=== PATIENT | female | born 1965 | race Caucasian/White ===

== ENCOUNTER 2017-02-15 16:28 | Observation (INO) | payer OTHER, SELFPAY ==
[2017-02-15] VITALS (8 sets, daily range): BP systolic 152–181; BP diastolic 66–91; PULSE 78–92; RESP 12–20; TEMP 36.4–36.6; O2SAT 97–99; BMI 29.8; BMI 31.1; BMI 31.2
--- NOTE | 2017-02-15 17:07 | RAD_ITS ---
STUDY: X-RAY CHEST REASON FOR EXAM: Female, 51 years old. Syncope TECHNIQUE: Single AP portable view of the chest. COMPARISON: None. FINDINGS: The lungs are clear and expanded. There is no demonstrated pleural abnormality. Normal size heart. Normal mediastinum and garth. Normal visualized pulmonary arteries. Normal visualized aortic arch and descending thoracic aorta. Normal visualized thoracic spine. Normal visualized ribs, clavicles, and shoulders. There is no demonstrated abnormality of the visualized soft tissue structures of the upper abdomen. RAD/Chest 1 View (Portable) IMPRESSION: Normal x-ray examination of the chest. Electronically Signed: Ignacio Acosta DO at 17:50 EST Tel , Service support ,
--- NOTE | 2017-02-15 17:07 | EKG12_ITS ---
Test Reason : SYNCOPE Blood Pressure : / mmHG Vent. Rate : 079 BPM Atrial Rate : 079 BPM P-R Int : 142 ms QRS Dur : 068 ms QT Int : 358 ms P-R-T Axes : 034 000 003 degrees QTc Int : 410 ms Normal sinus rhythm Normal ECG Confirmed by KAILYN ZIMMERMAN, KAT ([id number]), make up editor SIOBHAN QIU ([id number] on 02/18/2017 1:11:36 PM Referred By: FIDE Confirmed By:KAT AVINA MD
--- NOTE | 2017-02-15 18:03 | ED.VISSUMM ---
- ER Visit Summary Date of Service: 02/15/17 Chief Complaint: Near syncope History of Present Illness: The patient is a [address] Horner. 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 Her room was hot all day. However, she began to feel hot, clammy, diaphoretic, nauseated and had abdominal cramping. She felt like she needed to have a bowel movement. She went into the restroom and had very little stool that was produced. States that then she began feeling very lightheaded and felt like she was going to pass out. She sat down and turned on a fan for a few minutes and and get any relief. Patient reports that she went to the office got water and ice. She had a bowel movement that was loose. Since that time she reports that she has had 2 bowel movements since. They have both been diarrhea that is maroon colored. She complains of diffuse abdominal cramping that is 5 out of 10 now on 10 out of 10 at worst. Is relieved with having a bowel movement. She reports that they had a carry in at the school approximately 3 hours prior to the onset of this. She ate mac & cheese, broccoli slaw salad, scalloped potatoes, hamburger and beans, trail bologna, and multiple cream puffs. No one else is ill that she knows of. Patient reports that she has had multiple episodes of presyncope in the past. She had a stress test here and a 24 hour Holter monitor that were unremarkable. Physical Examination: Vitals: Stable. Afebrile. General: Well-nourished and well-developed. Head: Normocephalic atraumatic. Neck: Supple, no lymphadenopathy. No JVD. Nontender. Cardiovascular: Regular rate and rhythm. No murmurs. Respiratory: No respiratory distress. Clear to auscultation bilaterally. Abdominal: Soft, mild diffuse tenderness to palpation, nondistended, normal bowel sounds. No guarding, rebound, or peritoneal signs. Back: Nontender. Extremities: Nontender, no edema. Skin: Normal color, no rash. Neurologic: Alert and oriented ?3. Cranial nerves II through XII are intact. Normal strength and sensation. Psych: Normal affect. Test Results: EKG is sinus at 79 with no acute changes. Chest x-ray is normal. Chem-7 is remarkable for a chloride of 109, BUN of 21, and BUN/creatinine ratio 21.7. Troponin is negative. CBC is remarkable for a white count of 12.1, segmented neutrophils of 74, lymphs sets of 18. Lactic acid is 1.4. INR is 1.0. PTT is 26.1. CT abdomen pelvis IV contrast shows long segment wall thickening and pericolonic fat stranding of the descending and rectosigmoid colon consistent with colitis. Given the lack of significant atherosclerotic disease of the abdominal aorta ischemic colitis is less likely. Emergency Department Course and Treatment: Patient has had 3 episodes of maroon colored stool in the emergency department. When the CT results returned she was given Cipro and Flagyl IV. Treatment Plan: Patient was discussed with Dr. Gillette as well as the hospitalist. She will be admitted for further evaluation and treatment. Disposition: Admitted in improved condition. Impression: 1. Near syncope, vasovagal. 2. Colitis. This note was generated with [employer] dictation software. It may contain incorrect words, spelling, and punctuation that were not noted in review of the chart prior to signing ED Disposition - Plan for ED Patient: Chief Complaint: Syncope Referrals: Santosh Horner MD [Primary Care Provider] -
[2017-02-15] MEDS: 0.9% Normal Saline 1,000 ML 1000 ML IV (18:06)
--- NOTE | 2017-02-15 18:28 | CT_ITS ---
STUDY: CT ABDOMEN AND PELVIS WITH CONTRAST REASON FOR EXAM: Female, 51 years old. Ischemic colitis RADIATION DOSAGE (If Supplied By Facility): CTDIvol = ( 18.00 ) mGy, DLP = ( 1015.55 ) mGycm TECHNIQUE: Transaxial images were obtained from the dome of the diaphragm to the symphysis pubis without oral contrast. 100 ml of Isovue 300 contrast was administered. Sagittal and coronal images were reconstructed. Individualized dose optimization techniques were used for this CT. COMPARISON: None. FINDINGS: The visualized lung bases are unremarkable. The visualized portions of the heart are within normal limits. Throughout the liver, there are numerous well-defined nonenhancing cysts. Otherwise, normal liver. The gallbladder is contracted. Normal spleen. Normal pancreas. Normal bilateral adrenal glands. Numerous hypodense cysts seen within both kidneys suggesting a version of polycystic kidney disease in conjunction with liver cysts. No evidence of acute renal obstruction Normal visualized stomach. Normal small intestine. Long segment wall thickening of the descending and rectosigmoid colon with pericolonic fasting edema suggesting colitis. Remainder of the colon demonstrates chronic diverticulosis without acute diverticulitis. There is non-visualization of the appendix. Normal abdominal aorta. Normal inferior vena cava. Normal retroperitoneum. Normal urinary bladder. Normal visualized uterus. Normal abdominal wall. Normal osseous structures. CT/Abdomen/Pelvis W IV Cont ONLY IMPRESSION: Long segment wall thickening and pericolonic fat stranding of the descending and rectosigmoid colon compatible with colitis. Given the lack of significant atherosclerotic disease of the abdominal aorta, ischemic colitis is considered less likely. Polycystic kidney disease is noted. Electronically Signed: Ignacio Acosta DO at 20:35 EST Tel , Service support ,
[2017-02-15 19:35] LABS: Absolute Lymphocyte Count 2.17 X10^3/ul (0.83-4.51); Absolute Neutrophil Count 8.9 X10^3/uL (2.0-7.7); Basophil# 0.03 X10^3/uL; Basophil% 0.2 % (0-1); Eosinophil# 0.11 X10^3/uL; Eosinophils% 0.9 % (0-5); Hematocrit 42.6 % (37-47); Hemoglobin 13.7 g/dl (12.0-15.0); Lymphocyte # 2.17 X10^3/ul (4.0); Mean Corp Hgb Conc 32.2 g/gl (32-36); Mean Corpuscular Hgb 28.9 pg (27.0-32.0); Mean Corpuscular Volume 89.9 fL (81-99); Mean Platelet Vol. 9.4 fl (6.2-12.0); Monocyte# 0.79 X10^3/uL; Monocyte% 6.6 % (0-10); Neutrophil # 8.92 X10^3/uL (2.7-7.7); Neutrophil % 74.1 % (47-70); Platelet Count 218 K/mm3 (150-450); RBC Distribution Width CV 12.9 % (11.6-14.6); RBC Distribution Width SD 42.3 fl (35.1-43.9); Red Blood Count 4.74 M/mm3 (4.2-5.4); White Blood Count 12.1 K/mm3 (4.4-11.0)
[2017-02-15 19:52] LABS: Anion Gap 8 (5-15); BUN 21 mg/dL (7-18); BUN/Creat Ratio 21.7 RATIO (10-20); Calcium,Total 8.6 mg/dL (8.5-10.1); Chloride 109 mmol/L (98-107); Creatinine, Serum 0.97 mg/dL (0.55-1.02); EST Glomerular Filtration Rate 65 mL/min (>60); Est Glom Filt Rate - Afr Amer 78 mL/min (>60); Estimated Creatinine Clearance 64.95 ml/min; Glucose 96 mg/dL (70-110); Potassium 4.4 mmol/L (3.5-5.1); Sodium Level 140 mmol/L (136-145)
[2017-02-15 20:12] LABS: POSITIVE COUNT NO; POSITIVE DIFFERENTIAL NO; POSITIVE MORPHOLOGY NO
[2017-02-15 20:24] LABS: Lactic Acid 1.4 mmol/L (0.4-2.0)
[2017-02-15 20:37] LABS: Partial Thromboplast Time 26.1 Seconds (24.1-36.2); Prothrombin Time (Protime)PT. 12.5 SECONDS (11.7-14.9)
--- NOTE | 2017-02-15 21:54 | PCM.HP.STD ---
Problem List (1) Polycystic kidney disease Status: Chronic (2) rectosigmoid colitis Status: Acute (3) Hypertension Status: Chronic (4) Dyslipidemia Status: Chronic History of Present Illness Date of Admission: 02/15/17 Chief Complaint: Abdominal pain and bloody diarrhea today The patient is a 51 year old F with history of polycystic kidney disease being followed by the masonry teacher, Dr. Matthews came to ER with sudden onset of abdominal pain and bloody diarrhea today. 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 Initial 3 bowel movements were soft blood mixed but last 2 were almost all bloody. At the school her temperature was noted normal. She denies any prior history of colitis. She had colonoscopy by Dr. Gillette in September 2016 and was normal. In ER, CT abdomen shows long segment of descending and rectosigmoid colon wall thickening and pericolonic fatty stranding compatible with colitis Past Medical History Past Medical History (Chronic Problems): Chronic Problems Dyslipidemia (Chronic) Hypertension (Chronic) Polycystic kidney disease (Chronic) Allergies No Known Allergies Allergy (Verified 02/15/17 16:29) Home Medications: Ambulatory Orders Medication Instructions Recorded Levonorgestrel-Ethin Estradiol 1 tab PO DAILY 02/15/17 [Levonor-Eth Estra 0.09-0.02 mg] Lisinopril [Lisinopril] 20 mg PO DAILY 02/15/17 Rosuvastatin Calcium [Crestor] 20 mg PO QHS 02/15/17 Smoking Status: Never smoker - *Family History Paternal History Items: Renal Disease - Polycystic kidney disease in father and paternal side. Review of Systems Constitutional: Reports: Weakness. Denies: Chills, Fever, Weight Change HEENT: Denies: Head Aches, Sinus Congestion, Sinus Drainage Cardiovascular: Denies: Chest Pain, Palpitations Respiratory: Denies: Cough, Shortness of breath at rest, Sputum production Gastrointestinal: Reports: Abdominal Pain, Hematochezia, Nausea. Denies: Vomiting Genitourinary: Denies: Dysuria Musculoskeletal: Denies: Joint Pain, Joint Tenderness Skin: Denies: Rash, Wounds Neurological: Denies: Numbness, Tingling, Focal weakness Psychiatric: Denies: Anxiety, Depression, Homicidal Ideations, Suicidal Ideations Hematologic/ Lymphatic: Denies: Easy Bruising, Easy Bleeding VTE Information - Inpt Only VTE Present on Admission: No VTE Mechan Device Prophylaxis: SCD's VTE Pharm Prophylaxis ordered?: Yes Patient Problems: Active and Suspected Problems rectosigmoid colitis (Acute) - Physical Exam General: Alert, Oriented x3, Cooperative HEENT: Atraumatic, PERRLA, EOMI, Normocephalic Oral: Dry Mucosa Neck: Supple, No JVD, Negative Carotid Bruits Lungs: Clear to auscultation, Normal air movement, No rhonchi, No wheeze, No rales Cardiovascular: Regular rate, Regular Rhythm, Normal S1, Normal S2, No murmurs Abdomen: Bowel Sounds Present, Soft, Hypoactive Bowel Sounds, Tender - Generalized tenderness but predominantly over left lower quadrant Extremities: No edema, Capillary Refill Less than 3 Seconds Skin: No rashes, No breakdown Musculoskeletal: No Tenderness to Palpation of Joints or Extremities Neurological: Cranial nerves II-XII grossly intact Psych/Mental Status: Normal Affect, Appropriate Vital Signs Temp Pulse Resp BP Pulse Ox 97.6 F 88 12 164/73 99 02/15/17 16:29 02/15/17 20:24 02/15/17 20:24 02/15/17 20:24 02/15/17 20:24 Oxygen Delivery Method Room Air Weight: 83.915 kg Body Mass Index (BMI) 29.8 Laboratory Tests Past 24 Hrs 02/15/17 02/15/17 02/15/17 19:20 19:20 19:20 WBC 12.1 H RBC 4.74 Hgb 13.7 Hct 42.6 MCV 89.9 MCH 28.9 MCHC 32.2 RDW 12.9 RDW Differential 42.3 Plt Count 218 MPV 9.4 Immature Gran % (Auto) 0.200 Neut % (Auto) 74.1 H Lymph % (Auto) 18.0 L [place] % (Auto) 6.6 Eos % (Auto) 0.9 Baso % (Auto) 0.2 Absolute Neuts (auto) 8.9 H Absolute Lymphs (auto) 2.17 Total Counted Not Reportable PT 12.5 INR 1.0 APTT 26.1 Sodium 140 Potassium 4.4 Chloride 109 H Carbon Dioxide 23.0 Anion Gap 8 BUN 21 H Creatinine 0.97 Estim Creat Clear Calc 64.95 Est GFR (MDRD) Af Amer 78 Est GFR (MDRD) Non-Af 65 BUN/Creatinine Ratio 21.7 H Glucose 96 Lactic Acid Calcium 8.6 Troponin I < 0.02 02/15/17 19:20 WBC RBC Hgb Hct MCV MCH MCHC RDW RDW Differential Plt Count MPV Immature Gran % (Auto) Neut % (Auto) Lymph % (Auto) [place] % (Auto) Eos % (Auto) Baso % (Auto) Absolute Neuts (auto) Absolute Lymphs (auto) Total Counted PT INR APTT Sodium Potassium Chloride Carbon Dioxide Anion Gap BUN Creatinine Estim Creat Clear Calc Est GFR (MDRD) Af Amer Est GFR (MDRD) Non-Af BUN/Creatinine Ratio Glucose Lactic Acid 1.4 Calcium Troponin I Assessment/Plan Active and Suspected Problems rectosigmoid colitis (Acute) The patient is a 51 year old F with history of polycystic kidney disease being followed by the masonry teacher, Dr. Matthews came to ER with sudden onset of abdominal pain and bloody diarrhea today. 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 Initial 3 bowel movements were soft blood mixed but last 2 were almost all bloody. At the school her temperature was noted normal. She denies any prior history of colitis. She had colonoscopy by Dr. Gillette in September 2016 and was normal. In ER, CT abdomen shows long segment of descending and rectosigmoid colon wall thickening and pericolonic fatty stranding compatible with colitis. 1. Acute descending colon and rectosigmoid colitis with hematochezia (Mild leukocytosis. No tachycardia or hypotension, hypoxia or tachypnea). : Patient is being admitted on monitored bed. IV fluid resuscitation, monitor intake and output and dynamic monitoring. Orthostatic signs in the ER was negative. Started on IV fluid normal saline, IV Cipro and Flagyl and monitor H&H every 8 hourly. Currently hemoglobin is 10.[address] Gillette has been consulted and the patient does not need colonoscopy or invasive procedures. 2. Hypovolemia and dehydration due to diarrhea: Prerenal azotemia, BUN 21. Creatinine normal. IV fluid resuscitation. 3. Other chronic comorbidities including hypertension, dyslipidemia, polycystic kidney disease and polycystic disease of liver: Stable. Follow-up with masonry teacher as an outpatient. Home medication reconciliation done. DVT prophylaxis: Moderate risk, on heparin 500 units subcutaneous twice daily and bilateral SCDs. Clinical Impression(s) from Imaging Studies Chest X-Ray 02/15/17 17:07 IMPRESSION: Normal x-ray examination of the chest. Electronically Signed: Ignacio Acosta DO at 17:50 EST Tel , Service support , Abdomen/Pelvis CT 02/15/17 18:28 IMPRESSION: Long segment wall thickening and pericolonic fat stranding of the descending and rectosigmoid colon compatible with colitis. Given the lack of significant atherosclerotic disease of the abdominal aorta, ischemic colitis is considered less likely. Polycystic kidney disease is noted. Electronically Signed: Ignacio Feltonsherine at 20:35 EST Tel , Service support , Laboratory Results 02/15/17 19:20: WBC 12.1 H, RBC 4.74, Hgb 13.7, Hct 42.6, MCV 89.9, MCH 28.9, MCHC 32.2, RDW 12.9, RDW Differential 42.3, Plt Count 218, MPV 9.4, Immature Gran % (Auto) 0.200, Neut % (Auto) 74.1 H, Lymph % (Auto) 18.0 L, [place] % (Auto) 6.6, Eos % (Auto) 0.9, Baso % (Auto) 0.2, Absolute Neuts (auto) 8.9 H, Absolute Lymphs (auto) 2.17, Total Counted Not Reportable 02/15/17 19:20: PT 12.5, INR 1.0, APTT 26.1 02/15/17 19:20: Sodium 140, Potassium 4.4, Chloride 109 H, Carbon Dioxide 23.0, Anion Gap 8, BUN 21 H, Creatinine 0.97, Estim Creat Clear Calc 64.95, Est GFR (MDRD) Af Amer 78, Est GFR (MDRD) Non-Af 65, BUN/Creatinine Ratio 21.7 H, Glucose 96, Calcium 8.6, Troponin I < 0.02 02/15/17 19:20: Lactic Acid 1.4
--- NOTE | 2017-02-15 21:58 | HP.PCM_ITS ---
Problem List (1) Polycystic kidney disease Status: Chronic (2) rectosigmoid colitis Status: Acute (3) Hypertension Status: Chronic (4) Dyslipidemia Status: Chronic History of Present Illness Date of Admission: 02/15/17 Chief Complaint: Abdominal pain and bloody diarrhea today The patient is a 51 year old F with history of polycystic kidney disease being followed by the family living educator, Dr. Matthews came to ER with sudden onset of abdominal pain and bloody diarrhea today. 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 Initial 3 bowel movements were soft blood mixed but last 2 were almost all bloody. At the school her temperature was noted normal. She denies any prior history of colitis. She had colonoscopy by Dr. Gillette in September 2016 and was normal. In ER, CT abdomen shows long segment of descending and rectosigmoid colon wall thickening and pericolonic fatty stranding compatible with colitis Past Medical History Past Medical History (Chronic Problems): Chronic Problems Dyslipidemia (Chronic) Hypertension (Chronic) Polycystic kidney disease (Chronic) Allergies No Known Allergies Allergy (Verified 02/15/17 16:29) Home Medications: Ambulatory Orders Medication Instructions Recorded Levonorgestrel-Ethin Estradiol 1 tab PO DAILY 02/15/17 [Levonor-Eth Estra 0.09-0.02 mg] Lisinopril [Lisinopril] 20 mg PO DAILY 02/15/17 Rosuvastatin Calcium [Crestor] 20 mg PO QHS 02/15/17 Smoking Status: Never smoker - *Family History Paternal History Items: Renal Disease - Polycystic kidney disease in father and paternal side. Review of Systems Constitutional: Reports: Weakness. Denies: Chills, Fever, Weight Change HEENT: Denies: Head Aches, Sinus Congestion, Sinus Drainage Cardiovascular: Denies: Chest Pain, Palpitations Respiratory: Denies: Cough, Shortness of breath at rest, Sputum production Gastrointestinal: Reports: Abdominal Pain, Hematochezia, Nausea. Denies: Vomiting Genitourinary: Denies: Dysuria Musculoskeletal: Denies: Joint Pain, Joint Tenderness Skin: Denies: Rash, Wounds Neurological: Denies: Numbness, Tingling, Focal weakness Psychiatric: Denies: Anxiety, Depression, Homicidal Ideations, Suicidal Ideations Hematologic/ Lymphatic: Denies: Easy Bruising, Easy Bleeding VTE Information - Inpt Only VTE Present on Admission: No VTE Mechan Device Prophylaxis: SCD's VTE Pharm Prophylaxis ordered?: Yes Patient Problems: Active and Suspected Problems rectosigmoid colitis (Acute) - Physical Exam General: Alert, Oriented x3, Cooperative HEENT: Atraumatic, PERRLA, EOMI, Normocephalic Oral: Dry Mucosa Neck: Supple, No JVD, Negative Carotid Bruits Lungs: Clear to auscultation, Normal air movement, No rhonchi, No wheeze, No rales Cardiovascular: Regular rate, Regular Rhythm, Normal S1, Normal S2, No murmurs Abdomen: Bowel Sounds Present, Soft, Hypoactive Bowel Sounds, Tender - Generalized tenderness but predominantly over left lower quadrant Extremities: No edema, Capillary Refill Less than 3 Seconds Skin: No rashes, No breakdown Musculoskeletal: No Tenderness to Palpation of Joints or Extremities Neurological: Cranial nerves II-XII grossly intact Psych/Mental Status: Normal Affect, Appropriate Vital Signs Temp Pulse Resp BP Pulse Ox 97.6 F 88 12 164/73 99 02/15/17 16:29 02/15/17 20:24 02/15/17 20:24 02/15/17 20:24 02/15/17 20:24 Oxygen Delivery Method Room Air Weight: 83.915 kg Body Mass Index (BMI) 29.8 Laboratory Tests Past 24 Hrs 02/15/17 02/15/17 02/15/17 19:20 19:20 19:20 WBC 12.1 H RBC 4.74 Hgb 13.7 Hct 42.6 MCV 89.9 MCH 28.9 MCHC 32.2 RDW 12.9 RDW Differential 42.3 Plt Count 218 MPV 9.4 Immature Gran % (Auto) 0.200 Neut % (Auto) 74.1 H Lymph % (Auto) 18.0 L [place] % (Auto) 6.6 Eos % (Auto) 0.9 Baso % (Auto) 0.2 Absolute Neuts (auto) 8.9 H Absolute Lymphs (auto) 2.17 Total Counted Not Reportable PT 12.5 INR 1.0 APTT 26.1 Sodium 140 Potassium 4.4 Chloride 109 H Carbon Dioxide 23.0 Anion Gap 8 BUN 21 H Creatinine 0.97 Estim Creat Clear Calc 64.95 Est GFR (MDRD) Af Amer 78 Est GFR (MDRD) Non-Af 65 BUN/Creatinine Ratio 21.7 H Glucose 96 Lactic Acid Calcium 8.6 Troponin I < 0.02 02/15/17 19:20 WBC RBC Hgb Hct MCV MCH MCHC RDW RDW Differential Plt Count MPV Immature Gran % (Auto) Neut % (Auto) Lymph % (Auto) [place] % (Auto) Eos % (Auto) Baso % (Auto) Absolute Neuts (auto) Absolute Lymphs (auto) Total Counted PT INR APTT Sodium Potassium Chloride Carbon Dioxide Anion Gap BUN Creatinine Estim Creat Clear Calc Est GFR (MDRD) Af Amer Est GFR (MDRD) Non-Af BUN/Creatinine Ratio Glucose Lactic Acid 1.4 Calcium Troponin I Assessment/Plan Active and Suspected Problems rectosigmoid colitis (Acute) The patient is a 51 year old F with history of polycystic kidney disease being followed by the family living educator, Dr. Matthews came to ER with sudden onset of abdominal pain and bloody diarrhea today. 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 Initial 3 bowel movements were soft blood mixed but last 2 were almost all bloody. At the school her temperature was noted normal. She denies any prior history of colitis. She had colonoscopy by Dr. Gillette in September 2016 and was normal. In ER, CT abdomen shows long segment of descending and rectosigmoid colon wall thickening and pericolonic fatty stranding compatible with colitis. 1. Acute descending colon and rectosigmoid colitis with hematochezia (Mild leukocytosis. No tachycardia or hypotension, hypoxia or tachypnea). : Patient is being admitted on monitored bed. IV fluid resuscitation, monitor intake and output and dynamic monitoring. Orthostatic signs in the ER was negative. Started on IV fluid normal saline, IV Cipro and Flagyl and monitor H&H every 8 hourly. Currently hemoglobin is 10.[address] Gillette has been consulted and the patient does not need colonoscopy or invasive procedures. 2. Hypovolemia and dehydration due to diarrhea: Prerenal azotemia, BUN 21. Creatinine normal. IV fluid resuscitation. 3. Other chronic comorbidities including hypertension, dyslipidemia, polycystic kidney disease and polycystic disease of liver: Stable. Follow-up with family living educator as an outpatient. Home medication reconciliation done. DVT prophylaxis: Moderate risk, on heparin 500 units subcutaneous twice daily and bilateral SCDs. Clinical Impression(s) from Imaging Studies Chest X-Ray 02/15/17 17:07 IMPRESSION: Normal x-ray examination of the chest. Electronically Signed: Ignacio Acosta DO at 17:50 EST Tel , Service support , Abdomen/Pelvis CT 02/15/17 18:28 IMPRESSION: Long segment wall thickening and pericolonic fat stranding of the descending and rectosigmoid colon compatible with colitis. Given the lack of significant atherosclerotic disease of the abdominal aorta, ischemic colitis is considered less likely. Polycystic kidney disease is noted. Electronically Signed: Ignacio Feltonsherine at 20:35 EST Tel , Service support , Laboratory Results 02/15/17 19:20: WBC 12.1 H, RBC 4.74, Hgb 13.7, Hct 42.6, MCV 89.9, MCH 28.9, MCHC 32.2, RDW 12.9, RDW Differential 42.3, Plt Count 218, MPV 9.4, Immature Gran % (Auto) 0.200, Neut % (Auto) 74.1 H, Lymph % (Auto) 18.0 L, [place] % (Auto) 6.6, Eos % (Auto) 0.9, Baso % (Auto) 0.2, Absolute Neuts (auto) 8.9 H, Absolute Lymphs (auto) 2.17, Total Counted Not Reportable 02/15/17 19:20: PT 12.5, INR 1.0, APTT 26.1 02/15/17 19:20: Sodium 140, Potassium 4.4, Chloride 109 H, Carbon Dioxide 23.0, Anion Gap 8, BUN 21 H, Creatinine 0.97, Estim Creat Clear Calc 64.95, Est GFR ( MDRD) Af Amer 78, Est GFR (MDRD) Non-Af 65, BUN/Creatinine Ratio 21.7 H, Glucose 96, Calcium 8.6, Troponin I < 0.02 02/15/17 19:20: Lactic Acid 1.4
[2017-02-15] MEDS: Acetaminophen 325 MG Tablet 650 MG PO (23:25)
[2017-02-15] MEDS: 0.9% Normal Saline 1,000 ML 150 ML IV (23:26)
[2017-02-15] MEDS: Atorvastatin Calcium 20 MG Tablet PO (23:29)
[2017-02-15] MEDS: Heparin Injection 5,000 UNITS/ML Syringe 5000 UNITS SC (23:29)
[2017-02-15] MEDS: Zolpidem Tartrate 5 MG Tablet PO (23:33)
[2017-02-16] VITALS (7 sets, daily range): BP systolic 153–168; BP diastolic 73–98; PULSE 80–94; RESP 16–17; TEMP 36.6–36.9; O2SAT 95–98
[2017-02-16 05:44] LABS: Absolute Lymphocyte Count 2.86 X10^3/ul (0.83-4.51); Absolute Neutrophil Count 8.5 X10^3/uL (2.0-7.7); Basophil# 0.05 X10^3/uL; Basophil% 0.4 % (0-1); Eosinophils% 1.6 % (0-5); Hematocrit 38.5 % (37-47); Hemoglobin 13.1 g/dl (12.0-15.0); Lymphocyte # 2.86 X10^3/ul (4.0); Lymphocyte % 22.8 % (19-41); Mean Corpuscular Volume 88.1 fL (81-99); Mean Platelet Vol. 9.5 fl (6.2-12.0); Monocyte# 0.95 X10^3/uL; Monocyte% 7.6 % (0-10); Neutrophil # 8.46 X10^3/uL (2.7-7.7); Neutrophil % 67.4 % (47-70); Platelet Count 214 K/mm3 (150-450); RBC Distribution Width CV 12.7 % (11.6-14.6); RBC Distribution Width SD 40.1 fl (35.1-43.9); Red Blood Count 4.37 M/mm3 (4.2-5.4); White Blood Count 12.6 K/mm3 (4.4-11.0)
[2017-02-16] MEDS: Acetaminophen 325 MG Tablet 650 MG PO ×2 (05:51→13:04)
[2017-02-16 05:57] LABS: POSITIVE COUNT NO; POSITIVE DIFFERENTIAL NO; POSITIVE MORPHOLOGY NO
[2017-02-16 06:03] LABS: Anion Gap 11 (5-15); BUN 15 mg/dL (7-18); BUN/Creat Ratio 17.3 RATIO (10-20); Chloride 110 mmol/L (98-107); Cholesterol 138 mg/dL (200); Creatinine, Serum 0.87 mg/dL (0.55-1.02); EST Glomerular Filtration Rate 73 mL/min (>60); Est Glom Filt Rate - Afr Amer 89 mL/min (>60); Estimated Creatinine Clearance 72.42 ml/min; Glucose 92 mg/dL (70-110); High Density Lipoprotein 26 mg/dL; Sodium Level 141 mmol/L (136-145); Triglycerides 175 mg/dL; Very Low Density Lipoprotein 35 mg/dL (5-40)
[2017-02-16] MEDS: 0.9% Normal Saline 1,000 ML 150 ML IV ×3 (08:11→22:18)
--- NOTE | 2017-02-16 09:09 | CASEMGMT ---
RN CM assessment complete. See link for complete assessment. Disposition Plan: Patient would like to transition home with follow-up plans in place. Transition Needs: None identified at this time. RN CM will remain available to assist should needs arise.
--- NOTE | 2017-02-16 09:12 | NURSING ---
Lab called to clarify that sample sent was stool- as alot of sample was blood. Notified lab that sample was of stool.
--- NOTE | 2017-02-16 09:45 | NURSING ---
bilat hands puffy and noted rings on bilat ring fingers tight d/t the edema. used lotion and soap and able to assist pt w/getting rings off of fingers. gold ring that was on right hand and wedding ring that was on left hand both given to pt's to take home per pt request.
--- NOTE | 2017-02-16 10:08 | PCM.PROGNOTE ---
Patient Problems: Active and Suspected Problems rectosigmoid colitis (Acute) Subjective: Patient seen and examined, no acute events overnight. Had 2 stools that were bloody, no syncopal episodes. Remains hemodynamically stable, white count slightly increased to 12.6. She remains afebrile. Still having a significant amount of abdominal pain that is intermittent, partially relieved with bowel movement. Not having any stools, just pure red blood per patient report. She is feeling fatigued, has K pad on her abdomen. No current chest pain, shortness of breath, or dizziness. Objective: Clinical Impression(s) from Imaging Studies Chest X-Ray 02/15/17 17:07 IMPRESSION: Normal x-ray examination of the chest. Electronically Signed: Ignacio Acosta DO at 17:50 EST Tel , Service support , Abdomen/Pelvis CT 02/15/17 18:28 IMPRESSION: Long segment wall thickening and pericolonic fat stranding of the descending and rectosigmoid colon compatible with colitis. Given the lack of significant atherosclerotic disease of the abdominal aorta, ischemic colitis is considered less likely. Polycystic kidney disease is noted. Electronically Signed: Ignacio Acosta DO at 20:35 EST Tel , Service support , - Physical Exam General: Alert, Oriented x3, Cooperative, No apparent distress, - - Moderately painful HEENT: Atraumatic, Normocephalic Oral: Moist Mucosa, No Gingival or Mucosal Lesions/ Ulcerations Neck: Supple, No JVD, No Nodes, Trachea Midline Lungs: Clear to auscultation, No rhonchi, No wheeze, No rales Cardiovascular: Regular rate, Regular Rhythm, Normal S1, Normal S2, No murmurs, No rub noted, No Gallop Abdomen: Soft, Non-Distended, Passing Flatus, Hypoactive Bowel Sounds, - - Diffusely tender, more so in the LLQ Extremities: No clubbing, No cyanosis, No edema, Capillary Refill Less than 3 Seconds Skin: No rashes, No breakdown Musculoskeletal: No Tenderness to Palpation of Joints or Extremities Lymphatic: No Cervical, Supraclavicular, or Inguinal Adenopathy Neurological: Cranial nerves II-XII grossly intact, Neuro grossly intact, Motor Exam 5/5 strength throughout Psych/Mental Status: Alert and oriented to time, place, person, mood and affect Vital Signs Temp Pulse Resp BP Pulse Ox 97.9 F 80 17 168/98 96 02/16/17 04:54 02/16/17 07:30 02/16/17 04:54 02/16/17 04:54 02/16/17 07:07 Oxygen Delivery Method Room Air Weight: 87.6 kg Body Mass Index (BMI) 31.1 Intake and Output for Last 24 Hours 02/14/17 02/15/17 02/16/17 23:59 23:59 23:59 Intake Total 1121 Output Total 350 500 Balance -350 621 Laboratory Tests Past 24 Hrs 02/16/17 02/16/17 05:22 05:22 WBC 12.6 H RBC 4.37 Hgb 13.1 Hct 38.5 MCV 88.1 MCH 30.0 MCHC 34.0 RDW 12.7 RDW Differential 40.1 Plt Count 214 MPV 9.5 Immature Gran % (Auto) 0.200 Neut % (Auto) 67.4 Lymph % (Auto) 22.8 Merrick % (Auto) 7.6 Eos % (Auto) 1.6 Baso % (Auto) 0.4 Absolute Neuts (auto) 8.5 H Absolute Lymphs (auto) 2.86 Total Counted Not Reportable Sodium 141 Potassium 4.0 Chloride 110 H Carbon Dioxide 20.0 L Anion Gap 11 BUN 15 Creatinine 0.87 Estim Creat Clear Calc 72.42 Est GFR (MDRD) Af Amer 89 Est GFR (MDRD) Non-Af 73 BUN/Creatinine Ratio 17.3 Glucose 92 Calcium 8.0 L Triglycerides 175 Cholesterol 138 LDL Cholesterol 77 VLDL Cholesterol 35 HDL Cholesterol 26 L Assessment/Plan Active and Suspected Problems rectosigmoid colitis (Acute) Patient is a 51-year-old female who was admitted on 02/15 secondary to complaints of diffuse abdominal cramping, bloody stools, and near syncope. She had a CT abdomen and pelvis this was consistent with colitis. 1. Rectosigmoid colitis Confirmed by CT abdomen/pelvis. Does not appear to be ischemic colitis per report. Unsure if symptoms related to her carry-in she had at work prior to arrival. Lactate normal. Coags normal. WBC increased from 12.1-12.6 today. Remains afebrile. Enteric panel and O/P pending. Tylenol somewhat effective for her abdominal pain, she does not want to take narcotics secondary to her kidney disease. Does have IV morphine ordered. Still having some intermittent lightheadedness/feeling like she is going to pass out at times. Pt had 2 large liquid bloody stools overnight, [address] Gillette consulted in the ER. K-pad PRN to abdomen. No plans for colonoscopy per nursing staff, just had one in September, I do not see a note from surgery yet. Will see how she is doing overnight. If has large amount bloody stools, can check H&H later this afternoon, otherwise will check CBC in a.m. Continue flagyl and cipro. 2. Hypovolemia/dehydration/hyperchloremia Likely secondary to diarrhea. Receiving normal saline at 150 cc/hr. Continue for now. On clears, tolerating well but PO intake still not adequate. 3. Hypertension Not well controlled. May be partially due to pain. Add as needed hydralazine for systolic greater than 160 or diastolic greater than 90. 4. Polycystic kidney disease/polycystic liver disease Renal function stable. 5. Dyslipidemia 6. DVT prophylaxis Subcu heparin, SCDs This note was generated with bVisual dictation software. It may contain incorrect words, spelling, and punctuation that were not noted in checking the note before signing.
--- NOTE | 2017-02-16 10:21 | PN_ITS ---
Patient Problems: Active and Suspected Problems rectosigmoid colitis (Acute) Subjective: Patient seen and examined, no acute events overnight. Had 2 stools that were bloody, no syncopal episodes. Remains hemodynamically stable, white count slightly increased to 12.6. She remains afebrile. Still having a significant amount of abdominal pain that is intermittent, partially relieved with bowel movement. Not having any stools, just pure red blood per patient report. She is feeling fatigued, has K pad on her abdomen. No current chest pain, shortness of breath, or dizziness. Objective: Clinical Impression(s) from Imaging Studies Chest X-Ray 02/15/17 17:07 IMPRESSION: Normal x-ray examination of the chest. Electronically Signed: Ignacio Acosta DO at 17:50 EST Tel , Service support , Abdomen/Pelvis CT 02/15/17 18:28 IMPRESSION: Long segment wall thickening and pericolonic fat stranding of the descending and rectosigmoid colon compatible with colitis. Given the lack of significant atherosclerotic disease of the abdominal aorta, ischemic colitis is considered less likely. Polycystic kidney disease is noted. Electronically Signed: Ignacio Acosta DO at 20:35 EST Tel , Service support , - Physical Exam General: Alert, Oriented x3, Cooperative, No apparent distress, - - Moderately painful HEENT: Atraumatic, Normocephalic Oral: Moist Mucosa, No Gingival or Mucosal Lesions/ Ulcerations Neck: Supple, No JVD, No Nodes, Trachea Midline Lungs: Clear to auscultation, No rhonchi, No wheeze, No rales Cardiovascular: Regular rate, Regular Rhythm, Normal S1, Normal S2, No murmurs, No rub noted, No Gallop Abdomen: Soft, Non-Distended, Passing Flatus, Hypoactive Bowel Sounds, - - Diffusely tender, more so in the LLQ Extremities: No clubbing, No cyanosis, No edema, Capillary Refill Less than 3 Seconds Skin: No rashes, No breakdown Musculoskeletal: No Tenderness to Palpation of Joints or Extremities Lymphatic: No Cervical, Supraclavicular, or Inguinal Adenopathy Neurological: Cranial nerves II-XII grossly intact, Neuro grossly intact, Motor Exam 5/5 strength throughout Psych/Mental Status: Alert and oriented to time, place, person, mood and affect Vital Signs Temp Pulse Resp BP Pulse Ox 97.9 F 80 17 168/98 96 02/16/17 04:54 02/16/17 07:30 02/16/17 04:54 02/16/17 04:54 02/16/17 07:07 Oxygen Delivery Method Room Air Weight: 87.6 kg Body Mass Index (BMI) 31.1 Intake and Output for Last 24 Hours 02/14/17 02/15/17 02/16/17 23:59 23:59 23:59 Intake Total 1121 Output Total 350 500 Balance -350 621 Laboratory Tests Past 24 Hrs 02/16/17 02/16/17 05:22 05:22 WBC 12.6 H RBC 4.37 Hgb 13.1 Hct 38.5 MCV 88.1 MCH 30.0 MCHC 34.0 RDW 12.7 RDW Differential 40.1 Plt Count 214 MPV 9.5 Immature Gran % (Auto) 0.200 Neut % (Auto) 67.4 Lymph % (Auto) 22.8 [place]ke % (Auto) 7.6 Eos % (Auto) 1.6 Baso % (Auto) 0.4 Absolute Neuts (auto) 8.5 H Absolute Lymphs (auto) 2.86 Total Counted Not Reportable Sodium 141 Potassium 4.0 Chloride 110 H Carbon Dioxide 20.0 L Anion Gap 11 BUN 15 Creatinine 0.87 Estim Creat Clear Calc 72.42 Est GFR (MDRD) Af Amer 89 Est GFR (MDRD) Non-Af 73 BUN/Creatinine Ratio 17.3 Glucose 92 Calcium 8.0 L Triglycerides 175 Cholesterol 138 LDL Cholesterol 77 VLDL Cholesterol 35 HDL Cholesterol 26 L Assessment/Plan Active and Suspected Problems rectosigmoid colitis (Acute) Patient is a 51-year-old female who was admitted on 02/15 secondary to complaints of diffuse abdominal cramping, bloody stools, and near syncope. She had a CT abdomen and pelvis this was consistent with colitis. 1. Rectosigmoid colitis Confirmed by CT abdomen/pelvis. Does not appear to be ischemic colitis per report. Unsure if symptoms related to her carry-in she had at work prior to arrival. Lactate normal. Coags normal. WBC increased from 12.1-12.6 today. Remains afebrile. Enteric panel and O/P pending. Tylenol somewhat effective for her abdominal pain, she does not want to take narcotics secondary to her kidney disease. Does have IV morphine ordered. Still having some intermittent lightheadedness/feeling like she is going to pass out at times. Pt had 2 large liquid bloody stools overnight, [address] Gillette consulted in the ER. K-pad PRN to abdomen. No plans for colonoscopy per nursing staff, just had one in September, I do not see a note from surgery yet. Will see how she is doing overnight. If has large amount bloody stools, can check H&H later this afternoon, otherwise will check CBC in a.m. Continue flagyl and cipro. 2. Hypovolemia/dehydration/hyperchloremia Likely secondary to diarrhea. Receiving normal saline at 150 cc/hr. Continue for now. On clears, tolerating well but PO intake still not adequate. 3. Hypertension Not well controlled. May be partially due to pain. Add as needed hydralazine for systolic greater than 160 or diastolic greater than 90. 4. Polycystic kidney disease/polycystic liver disease Renal function stable. 5. Dyslipidemia 6. DVT prophylaxis Subcu heparin, SCDs This note was generated with [employer] dictation software. It may contain incorrect words, spelling, and punctuation that were not noted in checking the note before signing.
[2017-02-16] MEDS: Lisinopril 20 MG Tablet PO (10:37)
[2017-02-16] MEDS: Ciprofloxacin 400 MG/200 ML BAG 200 MG IV ×2 (10:37→22:18)
[2017-02-16] MEDS: Loratadine 10 MG Tablet PO (10:37)
--- NOTE | 2017-02-16 12:22 | CON.PCM_ITS ---
Reason for Consult Date of Consultation: 02/16/17 History of Present Illness: The patient is a [address] Horner. 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 Her room was hot all day. However, she began to feel hot, clammy, diaphoretic, nauseated and had abdominal cramping. She felt like she needed to have a bowel movement. She went into the restroom and had very little stool that was produced. States that then she began feeling very lightheaded and felt like she was going to pass out. She sat down and turned on a fan for a few minutes and and get any relief. Patient reports that she went to the office got water and ice. She had a bowel movement that was loose. Since that time she reports that she has had 2 bowel movements since. They have both been diarrhea that is maroon colored. She complains of diffuse abdominal cramping that is 5 out of 10 now on 10 out of 10 at worst. Is relieved with having a bowel movement. She reports that they had a carry in at the school approximately 3 hours prior to the onset of this. She ate mac & cheese, broccoli slaw salad, scalloped potatoes, hamburger and beans, trail bologna, and multiple cream puffs. No one else is ill that she knows of. Patient reports that she has had multiple episodes of presyncope in the past. She had a stress test here and a 24 hour Holter monitor that were unremarkable. A CAT scan with out oral or IV contrast was performed which showed a segment of sigmoid colon going into the rectum consistent with probable colitis. I performed a colonoscopy on her this past October which was entirely negative. Past Medical History Past Medical History (Chronic Problems): Chronic Problems Dyslipidemia (Chronic) Hypertension (Chronic) Polycystic kidney disease (Chronic) Allergies No Known Allergies Allergy (Verified 02/15/17 16:29) Home Medications: Ambulatory Orders Medication Instructions Recorded Cetirizine HCl [Zyrtec] 10 mg PO DAILY 02/15/17 Levonorgestrel-Ethin Estradiol 1 tab PO DAILY 02/15/17 [Levonor-Eth Estra 0.09-0.02 mg] Lisinopril [Lisinopril] 20 mg PO DAILY 02/15/17 Rosuvastatin Calcium [Crestor] 20 mg PO QHS 02/15/17 Smoking Status: Never smoker - *Family History Paternal History Items: Renal Disease - Polycystic kidney disease in father and paternal side. Review of Systems Cardiovascular: Denies: Chest Pain, Chest Pressure, Chest Tightness, Palpitations Respiratory: Denies: Cough, Hemoptysis, Shortness of breath at rest, Shortness of breath upon exertion, Wheezing Gastrointestinal: Reports: Abdominal Pain, Diarrhea, Hematochezia Genitourinary: Denies: Dysuria, Frequency, Hematuria, Urgency Musculoskeletal: Denies: Joint Pain Skin: Denies: Lesions, Rash, Wounds Patient Problems: Active and Suspected Problems rectosigmoid colitis (Acute) - Physical Exam General: Alert, Oriented x3 HEENT: Atraumatic, PERRLA, EOMI, Normocephalic Oral: Moist Mucosa Neck: Supple, No JVD Lungs: Clear to auscultation Cardiovascular: Regular rate, Regular Rhythm, No murmurs Abdomen: Tender - Patient feels bloated. Most of her tenderness is on the left side of her abdomen. She does not have rebound guarding or peritoneal signs. Vital Signs Temp Pulse Resp BP Pulse Ox 98.1 F 86 16 153/85 96 02/16/17 10:30 02/16/17 10:30 02/16/17 10:30 02/16/17 10:30 02/16/17 10:30 Oxygen Delivery Method Room Air Weight: 87.6 kg Body Mass Index (BMI) 31.1 Intake and Output for Last 24 Hours 02/14/17 02/15/17 02/16/17 23:59 23:59 23:59 Intake Total 2768 Output Total 350 1650 Balance -350 1118 Microbiology Past 72 Hours 02/16/17 09:05 Enteric Bacteriology - Final Stool Laboratory Tests Past 24 Hrs 02/16/17 02/16/17 05:22 05:22 WBC 12.6 H RBC 4.37 Hgb 13.1 Hct 38.5 MCV 88.1 MCH 30.0 MCHC 34.0 RDW 12.7 RDW Differential 40.1 Plt Count 214 MPV 9.5 Immature Gran % (Auto) 0.200 Neut % (Auto) 67.4 Lymph % (Auto) 22.8 Braxton % (Auto) 7.6 Eos % (Auto) 1.6 Baso % (Auto) 0.4 Absolute Neuts (auto) 8.5 H Absolute Lymphs (auto) 2.86 Total Counted Not Reportable Sodium 141 Potassium 4.0 Chloride 110 H Carbon Dioxide 20.0 L Anion Gap 11 BUN 15 Creatinine 0.87 Estim Creat Clear Calc 72.42 Est GFR (MDRD) Af Amer 89 Est GFR (MDRD) Non-Af 73 BUN/Creatinine Ratio 17.3 Glucose 92 Calcium 8.0 L Triglycerides 175 Cholesterol 138 LDL Cholesterol 77 VLDL Cholesterol 35 HDL Cholesterol 26 L Assessment/Plan Active and Suspected Problems rectosigmoid colitis (Acute) Assessment is colitis Plan: At this point IV hydration and antibiotics and bowel rest. She has had no further bloody bowel movements since being in the hospital. If her condition does not improve I am going to do a bowel prep and do a colonoscopy on her. I been asked to see this patient by Dr. Sims. Findings will be sent back to him via electronic medical record
[2017-02-16] MEDS: metroNIDAZOLE 500 MG Tablet PO ×2 (14:44→22:18)
--- NOTE | 2017-02-16 18:56 | EKG12_ITS ---
Test Reason : CHEST PAIN Blood Pressure : / mmHG Vent. Rate : 088 BPM Atrial Rate : 088 BPM P-R Int : 140 ms QRS Dur : 068 ms QT Int : 374 ms P-R-T Axes : 027 -01 -03 degrees QTc Int : 452 ms Normal sinus rhythm with sinus arrhythmia Normal ECG When compared with ECG of 15-FEB-2017 17:17, MANUAL COMPARISON REQUIRED, DATA IS UNCONFIRMED Confirmed by KAILYN ZIMMERMAN, KAT ([id number]), video tape editor SIOBHAN QIU ([id number] on 03/02/2017 1:51:24 PM Referred By: DR. KAUR Confirmed By:KAT AVINA MD
[2017-02-16] MEDS: oxyCODONE 5 MG Tablet PO (19:01)
[2017-02-16] MEDS: Atorvastatin Calcium 20 MG Tablet PO (22:18)
[2017-02-17] VITALS (7 sets, daily range): BP systolic 135–167; BP diastolic 66–85; PULSE 72–83; RESP 16–20; TEMP 35.8–36.7; O2SAT 97–99
[2017-02-17] MEDS: Acetaminophen 325 MG Tablet 650 MG PO ×2 (03:30→21:46)
[2017-02-17 05:52] LABS: Absolute Lymphocyte Count 1.97 X10^3/ul (0.83-4.51); Absolute Neutrophil Count 9.1 X10^3/uL (2.0-7.7); Basophil# 0.03 X10^3/uL; Basophil% 0.2 % (0-1); Eosinophil# 0.26 X10^3/uL; Eosinophils% 2.1 % (0-5); Hematocrit 36.2 % (37-47); Hemoglobin 12.2 g/dl (12.0-15.0); Lymphocyte # 1.97 X10^3/ul (4.0); Mean Corp Hgb Conc 33.7 g/gl (32-36); Mean Corpuscular Hgb 29.8 pg (27.0-32.0); Mean Corpuscular Volume 88.5 fL (81-99); Mean Platelet Vol. 9.3 fl (6.2-12.0); Monocyte# 0.92 X10^3/uL; Monocyte% 7.5 % (0-10); Neutrophil # 9.12 X10^3/uL (2.7-7.7); Platelet Count 201 K/mm3 (150-450); RBC Distribution Width CV 12.7 % (11.6-14.6); RBC Distribution Width SD 39.8 fl (35.1-43.9); Red Blood Count 4.09 M/mm3 (4.2-5.4); White Blood Count 12.3 K/mm3 (4.4-11.0)
[2017-02-17 05:53] LABS: POSITIVE COUNT NO; POSITIVE DIFFERENTIAL NO; POSITIVE MORPHOLOGY NO
[2017-02-17 06:04] LABS: Anion Gap 10 (5-15); BUN 8 mg/dL (7-18); BUN/Creat Ratio 11.6 RATIO (10-20); Calcium,Total 7.5 mg/dL (8.5-10.1); Chloride 110 mmol/L (98-107); Creatinine, Serum 0.69 mg/dL (0.55-1.02); EST Glomerular Filtration Rate 95 mL/min (>60); Est Glom Filt Rate - Afr Amer 115 mL/min (>60); Estimated Creatinine Clearance 91.31 ml/min; Glucose 85 mg/dL (70-110); Potassium 3.9 mmol/L (3.5-5.1); Sodium Level 140 mmol/L (136-145)
[2017-02-17] MEDS: 0.9% Normal Saline 1,000 ML 150 ML IV (06:47)
[2017-02-17] MEDS: metroNIDAZOLE 500 MG Tablet PO ×3 (06:47→21:48)
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
[2017-02-17] MEDS: oxyCODONE 5 MG Tablet PO ×2 (09:24→21:46)
[2017-02-17] MEDS: Loratadine 10 MG Tablet PO (09:24)
[2017-02-17] MEDS: Ciprofloxacin 400 MG/200 ML BAG 200 MG IV ×2 (09:24→21:45)
[2017-02-17] MEDS: Lisinopril 20 MG Tablet PO ×2 (09:24→12:46)
[2017-02-17] MEDS: Naproxen 250 MG Tablet PO (14:25)
[2017-02-17] MEDS: proCHLORPERazine 10 MG/2 ML Vial IV (14:26)
--- NOTE | 2017-02-17 15:26 | PN.SURG_ITS ---
Patient Problems: Active and Suspected Problems rectosigmoid colitis (Acute) Subjective: Patient has had no further blood per rectum. Still feels bloated still has abdominal tenderness on the left side. - Physical Exam Abdomen: Soft - Still has tenderness along the left side no rebound guarding or peritoneal signs are identified. Vital Signs Temp Pulse Resp BP Pulse Ox 98.0 F 81 18 155/85 99 02/17/17 12:46 02/17/17 12:46 02/17/17 12:46 02/17/17 12:46 02/17/17 12:46 Oxygen Delivery Method Room Air Weight: 87.6 kg Body Mass Index (BMI) 31.1 Intake and Output for Last 24 Hours 02/15/17 02/16/17 02/17/17 23:59 23:59 23:59 Intake Total 4517 2106 Output Total 350 2350 800 Balance -350 2167 1306 Microbiology Past 72 Hours 02/16/17 09:05 Enteric Bacteriology - Final Stool Laboratory Tests Past 24 Hrs 02/17/17 02/17/17 05:32 05:32 WBC 12.3 H RBC 4.09 L Hgb 12.2 Hct 36.2 L MCV 88.5 MCH 29.8 MCHC 33.7 RDW 12.7 RDW Differential 39.8 Plt Count 201 MPV 9.3 Immature Gran % (Auto) 0.200 Neut % (Auto) 74.0 H Lymph % (Auto) 16.0 L [place] % (Auto) 7.5 Eos % (Auto) 2.1 Baso % (Auto) 0.2 Absolute Neuts (auto) 9.1 H Absolute Lymphs (auto) 1.97 Total Counted Not Reportable Sodium 140 Potassium 3.9 Chloride 110 H Carbon Dioxide 20.0 L Anion Gap 10 BUN 8 Creatinine 0.69 Estim Creat Clear Calc 91.31 Est GFR (MDRD) Af Amer 115 Est GFR (MDRD) Non-Af 95 BUN/Creatinine Ratio 11.6 Glucose 85 Calcium 7.5 L Assessment/Plan Active and Suspected Problems rectosigmoid colitis (Acute) Assessment is colitis Plan: Plan is to perform a colonoscopy on her tomorrow. Need to see if there is any signs of ulcerative colitis or Crohn's colitis.
[2017-02-17] MEDS: Electrolyte Solution/Peg's 4000 ML PO (16:54)
[2017-02-17] MEDS: 0.9% Normal Saline 1,000 ML 75 ML IV (16:57)
[2017-02-17] MEDS: Atorvastatin Calcium 20 MG Tablet PO (21:47)
[2017-02-18] VITALS (14 sets, daily range): BP systolic 134–165; BP diastolic 59–92; PULSE 75–100; RESP 16–93; TEMP 36.2–37; O2SAT 16–100; BMI 31.0
--- NOTE | 2017-02-18 | COLBX_PTH ---
PATIENT: ISI GENAO LOC: MS3 U#:[id number] AGE/SX: 51/F [place] [facility] [place]: Dr. Hardeep Navarrete DO : 1965 BED: 1 DIS: 02/19/2017 SPEC #: [id number] RECD: 02/18/17 12:20 STATUS: CLARA REQ #: [id number] YIN: 02/18/17 00:[address]: Gomez Gillette DEPT: SURGICAL PATHOLOGY RECD BY: Reji Johnson ENTERED: 02/18/17 12:20 SP TYPE: COLON BX OTHR DR: MD Dr. Juan F Weeks DO Dr. Prakash Chand, MD Tissues: Sigmoid colon biopsy Procedures: Surgery Specimen Level IV Comments: @ Ordering doctor for SUIV edited from to @ by ROBERTO at 02/18/17 154 @ Submitting doctor edited from to @ by ROBERTO at 02/18/17 1542 HEADER OPERATION: Colonoscopy PRE-OP DIAGNOSIS: Abdomen pain, bloody diarrhea TISSUE SUBMITTED: Descending and sigmoid colon biopsy MICROSCOPIC DIAGNOSIS Descending and sigmoid colon, biopsy: Fragments of colonic mucosa with focal changes consistent with ischemic colitis. DON:nolan 02/21/17 COMMENT Case has been reviewed in consultation with Dr. Shah who concurs with the above diagnosis. IDC:AM MICROSCOPIC DESCRIPTION Slides are reviewed. GROSS DESCRIPTION Received in fixative is one container labeled with the patient's name and designated sigmoid colon biopsy. The specimen consists of multiple irregular fragments of light bueno soft tissue that in aggregate measure 1.5 x 0.5 x 0.1 cm. The specimen is totally submitted in one cassette. / DON:nolan 02/18/17 TC:5 CPT: 44371
[2017-02-18 02:36] LABS: Internal QC Validated? YES +Cl - CLEAR BKGD; Pregnancy, Urine Negative Negative
[2017-02-18] MEDS: 0.9% Normal Saline 1,000 ML 75 ML IV ×2 (07:54→22:00)
--- NOTE | 2017-02-18 08:38 | PCM.PROGNOTE ---
Patient Problems: Active and Suspected Problems rectosigmoid colitis (Acute) Subjective: Patient was seen and examined. No acute events overnight, denies any stools for over 24 hours. Denies any blood from rectum. States she feels better overall, she appears much more comfortable and energetic this morning. There are plans for a colonoscopy today at 11, the bowel prep went well and she had minimal nausea. - Physical Exam General: Alert, Oriented x3, Cooperative, No apparent distress, Well developed, Well nourished HEENT: Atraumatic, Normocephalic Oral: Moist Mucosa, No Gingival or Mucosal Lesions/ Ulcerations Neck: Supple Lungs: Clear to auscultation, No rhonchi, No wheeze, No rales, Diminished - post bases Cardiovascular: Regular rate, Regular Rhythm, Normal S1, Normal S2, No murmurs, No rub noted, No Gallop Abdomen: Bowel Sounds Present, Soft, Non-Distended, - - Generalized tenderness, sore Extremities: No clubbing, No cyanosis, No Calf Tenderness, Edema - LUE, no erythema. Elevated on pillows, Peripheral Pulses Normal Skin: No rashes, No breakdown Musculoskeletal: No Tenderness to Palpation of Joints or Extremities Lymphatic: No Cervical, Supraclavicular, or Inguinal Adenopathy Neurological: Neuro grossly intact Psych/Mental Status: Alert and oriented to time, place, person, mood and affect Vital Signs Temp Pulse Resp BP Pulse Ox 98.6 F 75 18 157/92 96 02/18/17 08:00 02/18/17 08:00 02/18/17 08:00 02/18/17 08:00 02/18/17 08:00 Oxygen Delivery Method Room Air Weight: 87.2 kg Body Mass Index (BMI) 31.0 Intake and Output for Last 24 Hours 02/16/17 02/17/17 02/18/17 23:59 23:59 23:59 Intake Total 2068 8573 472 Output Total 5410 5150 500 Balance 2167 3423 -28 Microbiology Past 72 Hours 02/16/17 09:05 Enteric Bacteriology - Final Stool Laboratory Tests Past 24 Hrs 02/18/17 02:15 Urine Test Negative Assessment/Plan Active and Suspected Problems rectosigmoid colitis (Acute) Patient is a 51-year-old female who was admitted on 02/15 secondary to complaints of diffuse abdominal cramping, bloody stools, and near syncope. She had a CT abdomen and pelvis this was consistent with colitis. 1. Rectosigmoid colitis Confirmed by CT abdomen/pelvis. Does not appear to be ischemic colitis per report. Unsure if symptoms related to her carry-in she had at work prior to arrival. Lactate normal. Coags normal. Mild leukocytosis, remains afebrile. Enteric panel normal, O/P still pending- expect results today. Tylenol somewhat effective for her abdominal pain, she does not want to take narcotics secondary to her kidney disease. Does have IV morphine ordered. Still having some intermittent lightheadedness/feeling like she is going to pass out at times. Had prior cardiac workup for the same which was normal. Dr. Gillette consulted in the ER. K-pad PRN to abdomen. Plans for colonoscopy today around 1100, did ok w/bowel prep. Continue flagyl and cipro. 2. Hypovolemia/dehydration/hyperchloremia Likely secondary to diarrhea. IVF decreased, good oral intake. 3. Hypertension Not well controlled. May be partially due to pain. Has PRN hydralazine for systolic greater than 160 or diastolic greater than 90. Patient notes her BP has been persistently high for some time, nephrology typically handles her BP medications. Her lisinopril was increased. 4. Polycystic kidney disease/polycystic liver disease Renal function stable. 5. Dyslipidemia 6. DVT prophylaxis Subcu heparin, SCDs This note was generated with [employer] software. It may contain incorrect words, spelling, and punctuation that were not noted in checking the note before signing.
[2017-02-18] MEDS: Ciprofloxacin 400 MG/200 ML BAG 200 MG IV (10:03)
--- NOTE | 2017-02-18 10:57 | NURSING ---
1030-TRANSPORTED TO [facility] VIA BED, ACCOMPANIED.
--- NOTE | 2017-02-18 11:15 | PCA ---
PT OFF FLOOR
--- NOTE | 2017-02-18 12:31 | PCM.IMDPSTOP ---
Immediate Post-Op Note Date of Procedure: 02/18/17 Primary Surgeon/Physician: Gomez Gillette counterintelligence agent: None Pre-Operative Diagnosis: Colitis Post-Operative Diagnosis: same Surgery/Procedure Performed:: Colonoscopy to transverse colon Description of Surgical Findings:: Patient was brought into the endoscopy suite and placed in the left lateral decubitus position. Under excellent MAC anesthetic the scope was inserted into the rectum and directed through the sigmoid colon and into the descending colon and just passed into the proximal or distal transverse colon. Operative findings: 1. Distal transverse colon normal in appearance no mass lesions no erythema. 2. Descending colon significant colitis there was no ulcerations there is no cobblestoning there was erythema multiple biopsies through the descending colon were performed. 3. Sigmoid colon diverticular disease was noted colitis was also noted it lessened the further down in the sigmoid colon that you went a few biopsies here were also obtained. Rectum: Normal appearance no mass lesions no ulcerations and no erythema. The colitis appears to be improving I did not go all the way to the sigmoid secondary to the erythema that was identified at this point I do not think we need to add steroids but would like to continue to just use antibiotics. Estimated Blood Loss: < 5 cc Specimen's removed: Random colon biopsies of descending and sigmoid colon Drains: none Type of Anesthesia:: MAC ASA Class: ASA2 Mod Systematic Disease - Admit VTE Documentation VTE Present on Admission: No VTE Mechan Device Prophylaxis: SCD's VTE Pharm Prophylaxis ordered?: No Reason prophylaxis not ordered:: Treatment Not Indicated
[2017-02-18] MEDS: Lisinopril 40 MG Tablet PO (12:33)
[2017-02-18] MEDS: metroNIDAZOLE 500 MG Tablet PO ×2 (12:33→22:49)
[2017-02-18] MEDS: Loratadine 10 MG Tablet PO (12:33)
[2017-02-18 17:51] LABS: Absolute Lymphocyte Count 2.55 X10^3/ul (0.83-4.51); Absolute Neutrophil Count 6.4 X10^3/uL (2.0-7.7); Basophil# 0.03 X10^3/uL; Basophil% 0.3 % (0-1); Eosinophil# 0.19 X10^3/uL; Eosinophils% 1.9 % (0-5); Hematocrit 36.9 % (37-47); Hemoglobin 12.3 g/dl (12.0-15.0); Lymphocyte # 2.55 X10^3/ul (4.0); Lymphocyte % 25.5 % (19-41); Mean Corp Hgb Conc 33.3 g/gl (32-36); Mean Corpuscular Hgb 29.4 pg (27.0-32.0); Mean Corpuscular Volume 88.1 fL (81-99); Mean Platelet Vol. 9.1 fl (6.2-12.0); Monocyte# 0.79 X10^3/uL; Monocyte% 7.9 % (0-10); Neutrophil # 6.42 X10^3/uL (2.7-7.7); Neutrophil % 64.2 % (47-70); POSITIVE COUNT NO; POSITIVE DIFFERENTIAL NO; POSITIVE MORPHOLOGY NO; Platelet Count 192 K/mm3 (150-450); RBC Distribution Width CV 12.7 % (11.6-14.6); RBC Distribution Width SD 40.9 fl (35.1-43.9); Red Blood Count 4.19 M/mm3 (4.2-5.4)
[2017-02-18] MEDS: Atorvastatin Calcium 20 MG Tablet PO (22:49)
[2017-02-18] MEDS: Ciprofloxacin 400 MG/200 ML BAG 100 MG IV (22:49)
[2017-02-18] MEDS: Zolpidem Tartrate 5 MG Tablet PO (22:49)
[2017-02-19 02:50] VITALS: BP 159/97; PULSE 87; RESP 18; TEMP 36.7; O2SAT 94
[2017-02-19] MEDS: Acetaminophen 325 MG Tablet 650 MG PO (02:50)
[2017-02-19] MEDS: metroNIDAZOLE 500 MG Tablet PO (05:48)
[2017-02-19] MEDS: Loratadine 10 MG Tablet PO (05:51)
[2017-02-19 05:54] VITALS: BP 148/78; PULSE 88; RESP 18; TEMP 36.4; O2SAT 96
[2017-02-19 07:21] VITALS: O2SAT 95
--- NOTE | 2017-02-19 10:07 | PCM.PN.HOSP ---
Patient Problems: Active and Suspected Problems rectosigmoid colitis (Acute) Subjective: Feeling better overall. Still with abdominal pain. Patient has been tolerating full liquid diet though was not able to eat at all this morning. Had some infiltration of her IVs which were removed. Anxious to go home. Vitals/I&O's: Vital Signs Temp Pulse Resp BP Pulse Ox 36.4 C 88 18 148/78 95 02/19/17 05:54 02/19/17 05:54 02/19/17 05:54 02/19/17 05:54 02/19/17 07:21 Oxygen Delivery Method Room Air Weight: 87.2 kg Body Mass Index (BMI) 31.0 Intake and Output for Last 24 Hours 02/17/17 02/18/17 02/19/17 23:59 23:59 23:59 Intake Total 8573 2000 1299 Output Total 5150 500 Balance 3423 1500 1299 General: Alert HEENT: Atraumatic, Normocephalic Neck: No Nodes, Thyroid Normal Size and Texture Lungs: Clear to auscultation, Normal air movement, No rhonchi, No wheeze Cardiovascular: Regular rate, Regular Rhythm, Normal S1, Normal S2, No murmurs Abdomen: Soft, Distended, Tender Extremities: No edema, No Calf Tenderness Psych/Mental Status: Normal Affect, Appropriate Microbiology Past 72 Hours 02/16/17 09:05 Stool Enteric Bacteriology - Final Laboratory Results 02/18/17 17:42: WBC 10.0, RBC 4.19 L, Hgb 12.3, Hct 36.9 L, MCV 88.1, MCH 29.4, MCHC 33.3, RDW 12.7, RDW Differential 40.9, Plt Count 192, MPV 9.1, Immature Gran % (Auto) 0.200, Neut % (Auto) 64.2, Lymph % (Auto) 25.5, [place] % (Auto) 7.9, Eos % (Auto) 1.9, Baso % (Auto) 0.3, Absolute Neuts (auto) 6.4, Absolute Lymphs (auto) 2.55, Total Counted Not Reportable Current Medications Acetaminophen (Tylenol) 650 mg PO Q6H PRN PRN PRN Reason: Mild Pain (scale 0-3)/T>100.7 Last Admin: 02/19/17 02:50 Dose: 650 mg Al Hydroxide/Mg Hydroxide (Mylanta Ii) 30 ml PO Q6H PRN PRN PRN Reason: Gastric Burning Atorvastatin Calcium (Lipitor) 20 mg PO QHS [facility] Last Admin: 02/18/17 22:49 Dose: 20 mg Hydralazine HCl (Apresoline) 10 mg IV Q4H PRN PRN PRN Reason: syst >160, diast >90 Last Admin: 02/17/17 21:50 Dose: 10 mg Ciprofloxacin (Cipro) 400 mg in 200 mls @ 200 mls/hr IV Q12 [facility] Last Admin: 02/18/17 22:49 Dose: 100 mls/hr Sodium Chloride () 1,000 mls @ 75 mls/hr IV .[id number] [facility] Last Admin: 02/18/17 22:00 Dose: 75 mls/hr Lisinopril (Zestril) 40 mg PO DAILY [facility] Last Admin: 02/18/17 12:33 Dose: 40 mg Loratadine (Claritin) 10 mg PO DAILY [facility] Last Admin: 02/19/17 05:51 Dose: 10 mg Metronidazole (Flagyl) 500 mg PO TID [facility] Last Admin: 02/19/17 05:48 Dose: 500 mg Morphine Sulfate (Morphine) 1 - 2 mg IV Q4H PRN PRN PRN Reason: SEVERE PAIN (6-10/10) Ondansetron HCl (Zofran) 4 mg IV Q6H PRN PRN PRN Reason: Nausea Oxycodone HCl (Oxyir) 5 mg PO Q4H PRN PRN PRN Reason: Moderate Pain (pain scale 4-5) Last Admin: 02/17/17 21:46 Dose: 5 mg Prochlorperazine Edisylate (Compazine) 10 mg IV Q6H PRN PRN PRN Reason: Nausea/Vomiting Last Admin: 02/17/17 14:26 Dose: 10 mg Sodium Chloride () 5 - 30 ml IV UD PRN PRN Reason: SALINE FLUSH Zolpidem Tartrate (Ambien (Generic)) 5 mg PO QHS PRN PRN PRN Reason: INSOMNIA Last Admin: 02/18/17 22:49 Dose: 5 mg Assessment/Plan Active and Suspected Problems rectosigmoid colitis (Acute) 1. Colitis Clear etiology. Ischemic versus infectious versus inflammatory. Had a colonoscopy yesterday with biopsies. Biopsies are pending at this time Patient to be discharged with Flagyl as well as ciprofloxacin Follow-up with Dr. Gillette 2. Hypertension Cipro was increased to 40 daily of from 20 at home. I will have the patient resume her 20 mg of lisinopril at home. 3. Disposition Patient will be discharged home today and patient instructed to return if has worsening abdominal pain.
--- NOTE | 2017-02-19 10:10 | PN_ITS ---
Patient Problems: Active and Suspected Problems rectosigmoid colitis (Acute) Subjective: Feeling better overall. Still with abdominal pain. Patient has been tolerating full liquid diet though was not able to eat at all this morning. Had some infiltration of her IVs which were removed. Anxious to go home. Vitals/I&O's: Vital Signs Temp Pulse Resp BP Pulse Ox 36.4 C 88 18 148/78 95 02/19/17 05:54 02/19/17 05:54 02/19/17 05:54 02/19/17 05:54 02/19/17 07:21 Oxygen Delivery Method Room Air Weight: 87.2 kg Body Mass Index (BMI) 31.0 Intake and Output for Last 24 Hours 02/17/17 02/18/17 02/19/17 23:59 23:59 23:59 Intake Total 8573 2000 1299 Output Total 5150 500 Balance 3423 1500 1299 General: Alert HEENT: Atraumatic, Normocephalic Neck: No Nodes, Thyroid Normal Size and Texture Lungs: Clear to auscultation, Normal air movement, No rhonchi, No wheeze Cardiovascular: Regular rate, Regular Rhythm, Normal S1, Normal S2, No murmurs Abdomen: Soft, Distended, Tender Extremities: No edema, No Calf Tenderness Psych/Mental Status: Normal Affect, Appropriate Microbiology Past 72 Hours 02/16/17 09:05 Stool Enteric Bacteriology - Final Laboratory Results 02/18/17 17:42: WBC 10.0, RBC 4.19 L, Hgb 12.3, Hct 36.9 L, MCV 88.1, MCH 29.4, MCHC 33.3, RDW 12.7, RDW Differential 40.9, Plt Count 192, MPV 9.1, Immature Gran % (Auto) 0.200, Neut % (Auto) 64.2, Lymph % (Auto) 25.5, [place] % (Auto) 7.9 , Eos % (Auto) 1.9, Baso % (Auto) 0.3, Absolute Neuts (auto) 6.4, Absolute Lymphs (auto) 2.55, Total Counted Not Reportable Current Medications Acetaminophen (Tylenol) 650 mg PO Q6H PRN PRN PRN Reason: Mild Pain (scale 0-3)/T>100.7 Last Admin: 02/19/17 02:50 Dose: 650 mg Al Hydroxide/Mg Hydroxide (Mylanta Ii) 30 ml PO Q6H PRN PRN PRN Reason: Gastric Burning Atorvastatin Calcium (Lipitor) 20 mg PO QHS COUNTS INCLUDE 234 BEDS AT THE [facility] Last Admin: 02/18/17 22:49 Dose: 20 mg Hydralazine HCl (Apresoline) 10 mg IV Q4H PRN PRN PRN Reason: syst >160, diast >90 Last Admin: 02/17/17 21:50 Dose: 10 mg Ciprofloxacin (Cipro) 400 mg in 200 mls @ 200 mls/hr IV Q12 COUNTS INCLUDE 234 BEDS AT THE [facility] Last Admin: 02/18/17 22:49 Dose: 100 mls/hr Sodium Chloride () 1,000 mls @ 75 mls/hr IV .[id number] COUNTS INCLUDE 234 BEDS AT THE [facility] Last Admin: 02/18/17 22:00 Dose: 75 mls/hr Lisinopril (Zestril) 40 mg PO DAILY COUNTS INCLUDE 234 BEDS AT THE [facility] Last Admin: 02/18/17 12:33 Dose: 40 mg Loratadine (Claritin) 10 mg PO DAILY COUNTS INCLUDE 234 BEDS AT THE [facility] Last Admin: 02/19/17 05:51 Dose: 10 mg Metronidazole (Flagyl) 500 mg PO TID COUNTS INCLUDE 234 BEDS AT THE [facility] Last Admin: 02/19/17 05:48 Dose: 500 mg Morphine Sulfate (Morphine) 1 - 2 mg IV Q4H PRN PRN PRN Reason: SEVERE PAIN (6-10/10) Ondansetron HCl (Zofran) 4 mg IV Q6H PRN PRN PRN Reason: Nausea Oxycodone HCl (Oxyir) 5 mg PO Q4H PRN PRN PRN Reason: Moderate Pain (pain scale 4-5) Last Admin: 02/17/17 21:46 Dose: 5 mg Prochlorperazine Edisylate (Compazine) 10 mg IV Q6H PRN PRN PRN Reason: Nausea/Vomiting Last Admin: 02/17/17 14:26 Dose: 10 mg Sodium Chloride () 5 - 30 ml IV UD PRN PRN Reason: SALINE FLUSH Zolpidem Tartrate (Ambien (Generic)) 5 mg PO QHS PRN PRN PRN Reason: INSOMNIA Last Admin: 02/18/17 22:49 Dose: 5 mg Assessment/Plan Active and Suspected Problems rectosigmoid colitis (Acute) 1. Colitis * Clear etiology. Ischemic versus infectious versus inflammatory. * Had a colonoscopy yesterday with biopsies. Biopsies are pending at this time * Patient to be discharged with Flagyl as well as ciprofloxacin * Follow-up with Dr. Gillette 2. Hypertension * Cipro was increased to 40 daily of from 20 at home. * I will have the patient resume her 20 mg of lisinopril at home. 3. Disposition Patient will be discharged home today and patient instructed to return if has worsening abdominal pain.
[2017-02-19] MEDS: Lisinopril 40 MG Tablet PO (10:14)
--- NOTE | 2017-02-19 10:14 | PCM.DC ---
- Discharge Diagnoses Current Active Problems: Current Active and Chronic Problems rectosigmoid colitis (Acute) Dyslipidemia (Chronic) Hypertension (Chronic) Polycystic kidney disease (Chronic) You will use the following diet at home:: Other - bland diet, advance as tolerated. Your food should be the consistency of: Regular Your liquids should be the consistency of: Regular/Thin Discharge Activity: - - ease back into normal activity. Call your doctor if you observe: Fever of 101 or Higher, - - Worsening abdominal pain. Worsening abdominal distention. Rectal bleeding. Allergies/Adverse Reactions: Allergies No Known Allergies Allergy (Verified 02/15/17 16:29) Medications to take at Discharge Cetirizine HCl [Zyrtec] 10 mg PO DAILY 02/15/17 Levonorgestrel-Ethin Estradiol [Levonor-Eth Estra 0.09-0.02 mg] 1 tab PO DAILY 02/15/17 Lisinopril 20 mg PO DAILY 02/15/17 Rosuvastatin Calcium [Crestor] 20 mg PO QHS 02/15/17 Ciprofloxacin [Cipro] 500 mg PO BID #14 tablet 02/19/17 Metronidazole [Flagyl] 500 mg PO TID #22 tablet 02/19/17 Ondansetron HCl [Zofran] 8 mg PO TID PRN #15 tablet 02/19/17 Oxycodone [Oxyir] 5 mg PO Q4H PRN PRN #18 tablet 02/19/17 The following prescriptions were given: Oxycodone [Oxyir] 5 mg PO Q4H PRN PRN #18 tablet PRN Reason: Moderate Pain (pain scale 4-5) Ciprofloxacin [Cipro] 500 mg PO BID #14 tablet Metronidazole [Flagyl] 500 mg PO TID #22 tablet Ondansetron HCl [Zofran] 8 mg PO TID PRN #15 tablet PRN Reason: Nausea/Vomiting Primary Care Physician: Santosh Horner MD [Primary Care Provider] - Within 2 Weeks Please Follow Up With: Gomez Gillette MD - colonoscopy follow up. When: 1-2 weeks Proposed Discharge Date: 02/19/17
[2017-02-19 10:15] VITALS: BP 165/104; PULSE 87; RESP 18; TEMP 36.8; O2SAT 97
--- NOTE | 2017-02-19 10:16 | PCM.DC.SUM ---
Discharge Date and Diagnosis - Problem List Patient Problems: Active and Suspected Problems rectosigmoid colitis (Acute) Colitis (Acute) Date of Admission: 02/15/17 Date of Discharge: 02/19/17 - Primary Discharge Diagnosis Active and Suspected Problems rectosigmoid colitis (Acute) Colitis (Acute) - Secondary Discharge Diagnosis Chronic Problems Dyslipidemia (Chronic) Hypertension (Chronic) Polycystic kidney disease (Chronic) Hospital Course and Treatment Imaging Results: Clinical Impression(s) from Imaging Studies Chest X-Ray 02/15/17 17:07 IMPRESSION: Normal x-ray examination of the chest. Electronically Signed: Ignacio Acosta DO at 17:50 EST Tel , Service support , Abdomen/Pelvis CT 02/15/17 18:28 IMPRESSION: Long segment wall thickening and pericolonic fat stranding of the descending and rectosigmoid colon compatible with colitis. Given the lack of significant atherosclerotic disease of the abdominal aorta, ischemic colitis is considered less likely. Polycystic kidney disease is noted. Electronically Signed: Ignacio Acosta DO at 20:35 EST Tel , Service support , Procedures: Colonoscopy - 1. Distal transverse colon normal in appearance no mass lesions no erythema. 2. Descending colon significant colitis there was no ulcerations there is no cobblestoning there was erythema multiple biopsies through the descending colon were performed. 3. Sigmoid colon diverticular disease was noted colitis was also noted it lessened the further down in the sigmoid colon that you went a few biopsies here were also obtained. Rectum: Normal appearance no mass lesions no ulcerations and no erythema. Summary of Care Provided: The patient is a 51 year old F presents with abdominal pain and bloody diarrhea. Had a CAT scan that showed long segment wall thickening of the pericolonic fat stranding of the descending and rectosigmoid colon compatible with colitis. Given the lack of significant atherosclerotic disease is felt not to be ischemic in the radiology report. Patient was started on ciprofloxacin and metronidazole. Patient did undergo colonoscopy which did show inflammation. Biopsies were performed and are still pending at the time of this dictation. Today, the patient is feeling better but still with slight distention and pain but has been tolerating diets. Patient will be discharged today but advised to come back to the emergency room if she has worsening abdominal pain or distention or bloody diarrhea again. Patient will follow up with Dr. Gillette in regards to results of her colonoscopy biopsies. Patient will continue with ciprofloxacin and metronidazole. Patient will have pain control with oxycodone as well as antiemetics with Zofran. [] Discharge Diet: No Restrictions Discharge Activity: - - ease back into normal activity. Call your doctor if you observe: Fever of 101 or Higher, - - Worsening abdominal pain. Worsening abdominal distention. Rectal bleeding. Home Medications: Medications to take at Discharge Cetirizine HCl [Zyrtec] 10 mg PO DAILY 02/15/17 Levonorgestrel-Ethin Estradiol [Levonor-Eth Estra 0.09-0.02 mg] 1 tab PO DAILY 02/15/17 Lisinopril 20 mg PO DAILY 02/15/17 Rosuvastatin Calcium [Crestor] 20 mg PO QHS 02/15/17 Ciprofloxacin [Cipro] 500 mg PO BID #14 tablet 02/19/17 Metronidazole [Flagyl] 500 mg PO TID #22 tablet 02/19/17 Ondansetron HCl [Zofran] 8 mg PO TID PRN #15 tablet 02/19/17 Oxycodone [Oxyir] 5 mg PO Q4H PRN PRN #18 tablet 02/19/17 Following Prescrptions Were Given to Patient: Oxycodone [Oxyir] 5 mg PO Q4H PRN PRN #18 tablet PRN Reason: Moderate Pain (pain scale 4-5) Ciprofloxacin [Cipro] 500 mg PO BID #14 tablet Metronidazole [Flagyl] 500 mg PO TID #22 tablet Ondansetron HCl [Zofran] 8 mg PO TID PRN #15 tablet PRN Reason: Nausea/Vomiting Primary Care Physician: Santosh Horner MD [Primary Care Provider] - Within 2 Weeks Please Follow Up With: Gomez Gillette MD - colonoscopy follow up. When: 1-2 weeks Disposition: Home Minutes spent on discharge:: 35 Patient Condition:: Good Meaningful Use Info Meaningful Use Diagnoses (Choose all that apply): None applicable
--- NOTE | 2017-02-19 10:24 | DS.PCM_ITS ---
Discharge Date and Diagnosis - Problem List Patient Problems: Active and Suspected Problems rectosigmoid colitis (Acute) Colitis (Acute) Date of Admission: 02/15/17 Date of Discharge: 02/19/17 - Primary Discharge Diagnosis Active and Suspected Problems rectosigmoid colitis (Acute) Colitis (Acute) - Secondary Discharge Diagnosis Chronic Problems Dyslipidemia (Chronic) Hypertension (Chronic) Polycystic kidney disease (Chronic) Hospital Course and Treatment Imaging Results: Clinical Impression(s) from Imaging Studies Chest X-Ray 02/15/17 17:07 IMPRESSION: Normal x-ray examination of the chest. Electronically Signed: Ignacio Acosta DO at 17:50 EST Tel , Service support , Abdomen/Pelvis CT 02/15/17 18:28 IMPRESSION: Long segment wall thickening and pericolonic fat stranding of the descending and rectosigmoid colon compatible with colitis. Given the lack of significant atherosclerotic disease of the abdominal aorta, ischemic colitis is considered less likely. Polycystic kidney disease is noted. Electronically Signed: Ignacio Acosta DO at 20:35 EST Tel , Service support , Procedures: Colonoscopy - 1. Distal transverse colon normal in appearance no mass lesions no erythema. 2. Descending colon significant colitis there was no ulcerations there is no cobblestoning there was erythema multiple biopsies through the descending colon were performed. 3. Sigmoid colon diverticular disease was noted colitis was also noted it lessened the further down in the sigmoid colon that you went a few biopsies here were also obtained. Rectum: Normal appearance no mass lesions no ulcerations and no erythema. Summary of Care Provided: The patient is a 51 year old F presents with abdominal pain and bloody diarrhea. Had a CAT scan that showed long segment wall thickening of the pericolonic fat stranding of the descending and rectosigmoid colon compatible with colitis. Given the lack of significant atherosclerotic disease is felt not to be ischemic in the radiology report. Patient was started on ciprofloxacin and metronidazole. Patient did undergo colonoscopy which did show inflammation. Biopsies were performed and are still pending at the time of this dictation. Today, the patient is feeling better but still with slight distention and pain but has been tolerating diets. Patient will be discharged today but advised to come back to the emergency room if she has worsening abdominal pain or distention or bloody diarrhea again. Patient will follow up with Dr. Gillette in regards to results of her colonoscopy biopsies. Patient will continue with ciprofloxacin and metronidazole. Patient will have pain control with oxycodone as well as antiemetics with Zofran. [] Discharge Diet: No Restrictions Discharge Activity: - - ease back into normal activity. Call your doctor if you observe: Fever of 101 or Higher, - - Worsening abdominal pain. Worsening abdominal distention. Rectal bleeding. Home Medications: Medications to take at Discharge Cetirizine HCl [Zyrtec] 10 mg PO DAILY 02/15/17 Levonorgestrel-Ethin Estradiol [Levonor-Eth Estra 0.09-0.02 mg] 1 tab PO DAILY 02/15/17 Lisinopril 20 mg PO DAILY 02/15/17 Rosuvastatin Calcium [Crestor] 20 mg PO QHS 02/15/17 Ciprofloxacin [Cipro] 500 mg PO BID #14 tablet 02/19/17 Metronidazole [Flagyl] 500 mg PO TID #22 tablet 02/19/17 Ondansetron HCl [Zofran] 8 mg PO TID PRN #15 tablet 02/19/17 Oxycodone [Oxyir] 5 mg PO Q4H PRN PRN #18 tablet 02/19/17 Following Prescrptions Were Given to Patient: Oxycodone [Oxyir] 5 mg PO Q4H PRN PRN #18 tablet PRN Reason: Moderate Pain (pain scale 4-5) Ciprofloxacin [Cipro] 500 mg PO BID #14 tablet Metronidazole [Flagyl] 500 mg PO TID #22 tablet Ondansetron HCl [Zofran] 8 mg PO TID PRN #15 tablet PRN Reason: Nausea/Vomiting Primary Care Physician: Santosh Horner MD [Primary Care Provider] - Within 2 Weeks Please Follow Up With: Gomez Gillette MD - colonoscopy follow up. When: 1-2 weeks Disposition: Home Minutes spent on discharge:: 35 Patient Condition:: Good Meaningful Use Info Meaningful Use Diagnoses (Choose all that apply): None applicable
[2017-02-19 11:32] VITALS: BP 155/84; PULSE 82; RESP 118; O2SAT 99
--- NOTE | 2017-02-19 12:02 | PN.SURG_ITS ---
Patient Problems: Active and Suspected Problems rectosigmoid colitis (Acute) Colitis (Acute) Subjective: Patient's pain has improved. Having bowel movements. - Physical Exam Abdomen: Soft Vital Signs Temp Pulse Resp BP Pulse Ox 98.2 F 82 118 155/84 99 02/19/17 10:15 02/19/17 11:32 02/19/17 11:32 02/19/17 11:32 02/19/17 11:32 Oxygen Delivery Method Room Air Weight: 87.2 kg Body Mass Index (BMI) 31.0 Intake and Output for Last 24 Hours 02/17/17 02/18/17 02/19/17 23:59 23:59 23:59 Intake Total 8573 2000 1299 Output Total 5150 500 Balance 3423 1500 1299 Microbiology Past 72 Hours 02/16/17 09:05 Enteric Bacteriology - Final Stool Laboratory Tests Past 24 Hrs 02/18/17 17:42 WBC 10.0 RBC 4.19 L Hgb 12.3 Hct 36.9 L MCV 88.1 MCH 29.4 MCHC 33.3 RDW 12.7 RDW Differential 40.9 Plt Count 192 MPV 9.1 Immature Gran % (Auto) 0.200 Neut % (Auto) 64.2 Lymph % (Auto) 25.5 [place] % (Auto) 7.9 Eos % (Auto) 1.9 Baso % (Auto) 0.3 Absolute Neuts (auto) 6.4 Absolute Lymphs (auto) 2.55 Total Counted Not Reportable Assessment/Plan Active and Suspected Problems rectosigmoid colitis (Acute) Colitis (Acute) Assessment is colitis Plan: At this point the patient may be discharged I will follow-up with her on Tuesday after Thanksgiving. Check the biopsy results of the area of colitis at that time.
== END 2017-02-19 12:19 | disposition home or self-care (01) | DRG 392 ==
LOC: ED 09-20 12:54 → MS3 10-04 08:38
PROVIDERS: Anesthesiology; Internal Medicine; Nurse Practitioner Family; Admitting Provider Internal Medicine; Emergency Provider Emergency Medicine; Family Provider Family Medicine; PCP Family Medicine
DX: K52.9 Noninfective gastroenteritis and colitis, unspecified (principal); Q61.3 Polycystic kidney, unspecified; K57.30 Diverticulosis of large intestine without perforation or abscess without bleeding; I10 Essential (primary) hypertension; E78.5 Hyperlipidemia, unspecified; E86.0 Dehydration; Q44.6 Cystic disease of liver; Z79.899 Other long term (current) drug therapy
CPT/HCPCS: 45380; 36415; 71010; 74176; 80048; 80061; 81025; 83605; 84484; 85025; 85610; 85730; 87177; 87209; 87506; 88305; 93005; 99218; 99285; J7030; Q9967; A4216; G0378; J0744

== ENCOUNTER → 2017-08-08 05:57 | Outpatient (CLI) | payer OTHER, SELFPAY ==
[2017-08-08 07:30] LABS: Absolute Lymphocyte Count 3.44 X10^3/ul (0.83-4.51); Absolute Neutrophil Count 6.3 X10^3/uL (2.0-7.7); Basophil# 0.03 X10^3/uL; Basophil% 0.3 % (0-1); Eosinophil# 0.05 X10^3/uL; Eosinophils% 0.5 % (0-5); Hematocrit 43.5 % (37-47); Hemoglobin 14.4 g/dl (12.0-15.0); Lymphocyte # 3.44 X10^3/ul (4.0); Lymphocyte % 31.9 % (19-41); Mean Corp Hgb Conc 33.1 g/gl (32-36); Mean Corpuscular Hgb 30.1 pg (27.0-32.0); Mean Corpuscular Volume 90.8 fL (81-99); Mean Platelet Vol. 9.1 fl (6.2-12.0); Monocyte# 0.96 X10^3/uL; Monocyte% 8.9 % (0-10); Neutrophil # 6.27 X10^3/uL (2.7-7.7); Neutrophil % 58.1 % (47-70); Platelet Count 333 K/mm3 (150-450); RBC Distribution Width CV 13.3 % (11.6-14.6); RBC Distribution Width SD 44.2 fl (35.1-43.9); Red Blood Count 4.79 M/mm3 (4.2-5.4); White Blood Count 10.8 K/mm3 (4.4-11.0)
[2017-08-08 07:34] LABS: POSITIVE COUNT NO; POSITIVE DIFFERENTIAL NO; POSITIVE MORPHOLOGY NO
[2017-08-08 07:48] LABS: Microalbumin,Random Urine 8.6 mg/L (NO RANGE EST.); Microalbumin:Creatinine Ratio 10.6 mg/g CRE (<30 mg/g CRE); Protein, Urine (Random) 10.4 mg/dL (<11.9); Protein:Creat Ratio 128 mg/g CRE (0-200)
[2017-08-08 08:00] LABS: Albumin, Serum 3.5 g/dL (3.2-5.0); BUN 18 mg/dL (7-18); BUN/Creat Ratio 18.9 RATIO (10-20); Calcium,Total 8.6 mg/dL (8.5-10.1); Chloride 104 mmol/L (98-107); Creatinine, Serum 0.95 mg/dL (0.55-1.02); EST Glomerular Filtration Rate 66 mL/min (>60); Est Glom Filt Rate - Afr Amer 79 mL/min (>60); Glucose 80 mg/dL (74-106); Phosphorus 3.5 mg/dL (2.5-4.9); Potassium 3.8 mmol/L (3.5-5.1); Sodium Level 137 mmol/L (136-145); T4 Free Direct 1.16 ng/dL (0.76-1.46); Thyroid Stim Hormone (TSH) 1.99 uIU/mL (0.358-3.74)
[2017-08-08 09:27] LABS: PTHIN 52.5 pg/mL (18.4-80.1)
== END ==
PROVIDERS: Family Provider Internal Medicine; PCP Internal Medicine; Visit Provider Nurse Practitioner Family
DX: N18.2 Chronic kidney disease, stage 2 (mild) (principal); Z13.0 Encounter for screening for diseases of the blood and blood-forming organs and certain disorders involving the immune mechanism
CPT/HCPCS: 36415; 80069; 82043; 82306; 82570; 83970; 84156; 84439; 84443; 85025

== ENCOUNTER → 2017-09-27 07:32 | Outpatient (CLI) | payer OTHER, SELFPAY ==
[2017-09-27 08:17] LABS: Absolute Lymphocyte Count 2.59 X10^3/ul (0.83-4.51); Absolute Neutrophil Count 3.9 X10^3/uL (2.0-7.7); Basophil# 0.05 X10^3/uL; Basophil% 0.7 % (0-1); Eosinophil# 0.13 X10^3/uL; Eosinophils% 1.8 % (0-5); Hematocrit 42.6 % (37-47); Hemoglobin 14.5 g/dl (12.0-15.0); Lymphocyte # 2.59 X10^3/ul (4.0); Lymphocyte % 35.1 % (19-41); Mean Corpuscular Hgb 31.4 pg (27.0-32.0); Mean Corpuscular Volume 92.2 fL (81-99); Mean Platelet Vol. 9.2 fl (6.2-12.0); Monocyte# 0.67 X10^3/uL; Monocyte% 9.1 % (0-10); Neutrophil % 52.9 % (47-70); Platelet Count 283 K/mm3 (150-450); RBC Distribution Width CV 12.6 % (11.6-14.6); RBC Distribution Width SD 41.9 fl (35.1-43.9); Red Blood Count 4.62 M/mm3 (4.2-5.4); White Blood Count 7.4 K/mm3 (4.4-11.0)
[2017-09-27 08:18] LABS: POSITIVE COUNT NO; POSITIVE DIFFERENTIAL NO; POSITIVE MORPHOLOGY NO
[2017-09-27 08:40] LABS: Microalbumin:Creatinine Ratio 20.8 mg/g CRE (<30 mg/g CRE); Protein, Urine (Random) 13.5 mg/dL (<11.9); Protein:Creat Ratio 134 mg/g CRE (0-200)
[2017-09-27 08:47] LABS: Albumin, Serum 3.3 g/dL (3.2-5.0); BUN 22 mg/dL (7-18); BUN/Creat Ratio 25.2 RATIO (10-20); Calcium,Total 8.3 mg/dL (8.5-10.1); Chloride 106 mmol/L (98-107); Creatinine, Serum 0.87 mg/dL (0.55-1.02); EST Glomerular Filtration Rate 73 mL/min (>60); Est Glom Filt Rate - Afr Amer 88 mL/min (>60); Glucose 85 mg/dL (74-106); Phosphorus 3.2 mg/dL (2.5-4.9); Potassium 4.3 mmol/L (3.5-5.1); Sodium Level 140 mmol/L (136-145)
[2017-09-28 10:16] LABS: PTHIN 31.7 pg/mL (18.4-80.1)
[2017-09-28 10:24] LABS: Vitamin D,25 Hydroxy 40.6 ng/mL (29.95-100.01)
== END ==
PROVIDERS: Family Provider Internal Medicine; PCP Internal Medicine; Visit Provider Pediatrics Pediatric Nephrology
DX: N18.2 Chronic kidney disease, stage 2 (mild) (principal); Z13.0 Encounter for screening for diseases of the blood and blood-forming organs and certain disorders involving the immune mechanism
CPT/HCPCS: 36415; 80069; 82043; 82306; 82570; 83970; 84156; 85025

== ENCOUNTER → 2017-11-08 10:49 | Outpatient (CLI) | payer OTHER, SELFPAY ==
[2017-11-08 11:30] LABS: Absolute Neutrophil Count 7.5 X10^3/uL (2.0-7.7); Basophil# 0.06 X10^3/uL; Basophil% 0.5 % (0-1); Eosinophil# 0.33 X10^3/uL; Eosinophils% 2.8 % (0-5); Hematocrit 42.6 % (37-47); Hemoglobin 14.2 g/dl (12.0-15.0); Lymphocyte % 23.6 % (19-41); Mean Corp Hgb Conc 33.3 g/gl (32-36); Monocyte# 1.14 X10^3/uL; Monocyte% 9.6 % (0-10); Neutrophil # 7.51 X10^3/uL (2.7-7.7); Neutrophil % 63.2 % (47-70); POSITIVE COUNT NO; POSITIVE DIFFERENTIAL NO; POSITIVE MORPHOLOGY NO; Platelet Count 345 K/mm3 (150-450); RBC Distribution Width CV 12.7 % (11.6-14.6); RBC Distribution Width SD 42.6 fl (35.1-43.9); Red Blood Count 4.58 M/mm3 (4.2-5.4); White Blood Count 11.9 K/mm3 (4.4-11.0)
[2017-11-08 11:46] LABS: Microalbumin,Random Urine 5.9 mg/L (NO RANGE EST.); Protein, Urine (Random) 6.8 mg/dL (<11.9); Protein:Creat Ratio 85 mg/g CRE (0-200)
[2017-11-08 12:03] LABS: ALB/GLOB Ratio 0.9 RATIO (0.9-2.4); AST(SGOT) 14 U/L (15-37); Alanine Aminotransfer ALT/SGPT 30 U/L (13-56); Albumin, Serum 3.4 g/dL (3.2-5.0); Alkaline Phosphatase 86 U/L (45-117); BUN 18 mg/dL (7-18); BUN/Creat Ratio 17.3 RATIO (10-20); Bilirubin, Direct 0.09 mg/dL (0.00-0.30); Calcium,Total 8.9 mg/dL (8.5-10.1); Chloride 108 mmol/L (98-107); Creatinine, Serum 1.04 mg/dL (0.55-1.02); EST Glomerular Filtration Rate 59 mL/min (>60); Est Glom Filt Rate - Afr Amer 72 mL/min (>60); Globulin 3.8 g/dL (2.2-4.2); Glucose 77 mg/dL (74-106); Potassium 4.4 mmol/L (3.5-5.1); Protein, Total 7.2 g/dL (6.4-8.2); Sodium Level 142 mmol/L (136-145)
[2017-11-09 09:43] LABS: Vitamin D,25 Hydroxy 58.4 ng/mL (29.95-100.01)
[2017-11-09 09:54] LABS: PTHIN 21.2 pg/mL (18.4-80.1)
== END ==
PROVIDERS: Family Provider Internal Medicine; PCP Internal Medicine; Visit Provider Pediatrics Pediatric Nephrology
DX: N18.2 Chronic kidney disease, stage 2 (mild) (principal); Z13.0 Encounter for screening for diseases of the blood and blood-forming organs and certain disorders involving the immune mechanism; Q61.3 Polycystic kidney, unspecified
CPT/HCPCS: 36415; 80069; 82043; 82247; 82248; 82306; 82570; 83970; 84075; 84156; 84450; 84460; 85025

== ENCOUNTER → 2017-12-06 16:08 | Outpatient (CLI) | payer OTHER, SELFPAY ==
[2017-12-06 16:51] LABS: Absolute Lymphocyte Count 3.58 X10^3/ul (0.83-4.51); Absolute Neutrophil Count 6.5 X10^3/uL (2.0-7.7); Basophil# 0.04 X10^3/uL; Basophil% 0.4 % (0-1); Eosinophil# 0.18 X10^3/uL; Eosinophils% 1.6 % (0-5); Hematocrit 43.4 % (37-47); Hemoglobin 14.3 g/dl (12.0-15.0); Lymphocyte # 3.58 X10^3/ul (4.0); Lymphocyte % 31.5 % (19-41); Mean Corp Hgb Conc 32.9 g/gl (32-36); Mean Corpuscular Hgb 30.5 pg (27.0-32.0); Mean Corpuscular Volume 92.5 fL (81-99); Mean Platelet Vol. 9.3 fl (6.2-12.0); Monocyte# 1.01 X10^3/uL; Monocyte% 8.9 % (0-10); Neutrophil # 6.53 X10^3/uL (2.7-7.7); Neutrophil % 57.4 % (47-70); Platelet Count 276 K/mm3 (150-450); RBC Distribution Width CV 12.6 % (11.6-14.6); RBC Distribution Width SD 42.4 fl (35.1-43.9); Red Blood Count 4.69 M/mm3 (4.2-5.4); White Blood Count 11.4 K/mm3 (4.4-11.0)
[2017-12-06 16:52] LABS: POSITIVE COUNT NO; POSITIVE DIFFERENTIAL NO; POSITIVE MORPHOLOGY NO
[2017-12-06 17:13] LABS: Albumin, Serum 3.5 g/dL (3.2-5.0); BUN 20 mg/dL (7-18); BUN/Creat Ratio 21.8 RATIO (10-20); Calcium,Total 8.9 mg/dL (8.5-10.1); Chloride 106 mmol/L (98-107); Creatinine, Serum 0.92 mg/dL (0.55-1.02); EST Glomerular Filtration Rate 69 mL/min (>60); Est Glom Filt Rate - Afr Amer 83 mL/min (>60); Glucose 77 mg/dL (74-106); Phosphorus 3.7 mg/dL (2.5-4.9); Potassium 4.4 mmol/L (3.5-5.1); Sodium Level 140 mmol/L (136-145)
[2017-12-06 17:55] LABS: Microalbumin,Random Urine < 5.0 mg/L (NO RANGE EST.); Protein, Urine (Random) < 6.0 mg/dL (<11.9)
[2017-12-07 08:43] LABS: Vitamin D,25 Hydroxy 44.2 ng/mL (29.95-100.01)
[2017-12-07 08:47] LABS: PTHIN 16.6 pg/mL (18.4-80.1)
== END ==
PROVIDERS: Family Provider Internal Medicine; PCP Internal Medicine
DX: N18.2 Chronic kidney disease, stage 2 (mild) (principal); Z13.0 Encounter for screening for diseases of the blood and blood-forming organs and certain disorders involving the immune mechanism
CPT/HCPCS: 36415; 80069; 82043; 82306; 82570; 83970; 84156; 85025

== ENCOUNTER → 2018-01-03 16:04 | Outpatient (CLI) | payer OTHER, SELFPAY ==
[2018-01-03 17:24] LABS: Absolute Lymphocyte Count 3.85 X10^3/ul (0.83-4.51); Absolute Neutrophil Count 5.2 X10^3/uL (2.0-7.7); Basophil# 0.06 X10^3/uL; Basophil% 0.6 % (0-1); Eosinophil# 0.25 X10^3/uL; Eosinophils% 2.4 % (0-5); Hematocrit 44.5 % (37-47); Hemoglobin 14.5 g/dl (12.0-15.0); Lymphocyte # 3.85 X10^3/ul (4.0); Lymphocyte % 36.6 % (19-41); Mean Corp Hgb Conc 32.6 g/gl (32-36); Mean Corpuscular Hgb 30.2 pg (27.0-32.0); Mean Corpuscular Volume 92.7 fL (81-99); Mean Platelet Vol. 9.5 fl (6.2-12.0); Monocyte# 1.11 X10^3/uL; Monocyte% 10.5 % (0-10); Neutrophil # 5.23 X10^3/uL (2.7-7.7); Neutrophil % 49.6 % (47-70); Platelet Count 293 K/mm3 (150-450); RBC Distribution Width CV 12.4 % (11.6-14.6); RBC Distribution Width SD 41.7 fl (35.1-43.9); White Blood Count 10.5 K/mm3 (4.4-11.0)
[2018-01-03 17:25] LABS: POSITIVE COUNT NO; POSITIVE DIFFERENTIAL NO; POSITIVE MORPHOLOGY NO
[2018-01-03 17:50] LABS: Creatinine, Urine (random) < 13.00 mg/dL (NO RANGE EST.); Microalbumin,Random Urine < 5.0 mg/L (NO RANGE EST.); Protein, Urine (Random) < 6.0 mg/dL (<11.9)
[2018-01-03 17:59] LABS: ALB/GLOB Ratio 0.9 RATIO (0.9-2.4); AST(SGOT) 15 U/L (15-37); Alanine Aminotransfer ALT/SGPT 24 U/L (13-56); Albumin, Serum 3.5 g/dL (3.2-5.0); Alkaline Phosphatase 80 U/L (45-117); BUN 14 mg/dL (7-18); Bilirubin, Direct 0.08 mg/dL (0.00-0.30); Calcium,Total 8.5 mg/dL (8.5-10.1); Chloride 106 mmol/L (98-107); EST Glomerular Filtration Rate 62 mL/min (>60); Est Glom Filt Rate - Afr Amer 75 mL/min (>60); Globulin 3.9 g/dL (2.2-4.2); Glucose 78 mg/dL (74-106); Phosphorus 2.9 mg/dL (2.5-4.9); Potassium 3.9 mmol/L (3.5-5.1); Protein, Total 7.4 g/dL (6.4-8.2); Sodium Level 138 mmol/L (136-145)
[2018-01-04 09:20] LABS: Vitamin D,25 Hydroxy 41.4 ng/mL (29.95-100.01)
== END ==
PROVIDERS: Family Provider Internal Medicine; PCP Internal Medicine; Referring Provider Pediatrics Pediatric Nephrology; Visit Provider Pediatrics Pediatric Nephrology
DX: Z13.0 Encounter for screening for diseases of the blood and blood-forming organs and certain disorders involving the immune mechanism (principal); Q61.3 Polycystic kidney, unspecified; N18.2 Chronic kidney disease, stage 2 (mild)
CPT/HCPCS: 36415; 80069; 82043; 82247; 82248; 82306; 82570; 83970; 84075; 84156; 84450; 84460; 85025

== ENCOUNTER → 2018-01-17 16:10 | Outpatient (CLI) | payer OTHER, SELFPAY ==
[2018-01-17 17:21] LABS: AST(SGOT) 22 U/L (15-37); Alanine Aminotransfer ALT/SGPT 22 U/L (13-56); Albumin, Serum 3.4 g/dL (3.2-5.0); Alkaline Phosphatase 74 U/L (45-117); Bilirubin, Direct 0.07 mg/dL (0.00-0.30); Globulin 3.4 g/dL (2.2-4.2); Protein, Total 6.8 g/dL (6.4-8.2)
== END ==
PROVIDERS: Family Provider Internal Medicine; PCP Internal Medicine; Referring Provider Pediatrics Pediatric Nephrology; Visit Provider Pediatrics Pediatric Nephrology
DX: Q61.3 Polycystic kidney, unspecified (principal)
CPT/HCPCS: 36415; 80076

== ENCOUNTER → 2018-02-14 16:05 | Outpatient (CLI) | payer OTHER, SELFPAY ==
[2018-02-14 17:47] LABS: AST(SGOT) 21 U/L (15-37); Alanine Aminotransfer ALT/SGPT 22 U/L (13-56); Albumin, Serum 3.4 g/dL (3.2-5.0); Alkaline Phosphatase 78 U/L (45-117); Bilirubin, Direct 0.09 mg/dL (0.00-0.30); Globulin 3.1 g/dL (2.2-4.2); Protein, Total 6.5 g/dL (6.4-8.2)
== END ==
PROVIDERS: Family Provider Internal Medicine; PCP Internal Medicine; Referring Provider Pediatrics Pediatric Nephrology; Visit Provider Pediatrics Pediatric Nephrology
DX: Q61.3 Polycystic kidney, unspecified (principal)
CPT/HCPCS: 36415; 80076

== ENCOUNTER → 2018-02-27 11:03 | Outpatient (CLI) | payer OTHER, SELFPAY ==
[2018-02-20 14:51] VITALS: BMI 30.9
[2018-02-27 11:27] LABS: Absolute Lymphocyte Count 2.63 X10^3/ul (0.83-4.51); Absolute Neutrophil Count 6.4 X10^3/uL (2.0-7.7); Basophil# 0.06 X10^3/uL; Basophil% 0.6 % (0-1); Eosinophil# 0.29 X10^3/uL; Eosinophils% 2.8 % (0-5); Hematocrit 43.3 % (37-47); Hemoglobin 14.6 g/dl (12.0-15.0); Lymphocyte # 2.63 X10^3/ul (4.0); Lymphocyte % 25.4 % (19-41); Mean Corp Hgb Conc 33.7 g/gl (32-36); Mean Corpuscular Hgb 30.2 pg (27.0-32.0); Mean Corpuscular Volume 89.5 fL (81-99); Mean Platelet Vol. 9.2 fl (6.2-12.0); Monocyte% 8.7 % (0-10); Neutrophil # 6.41 X10^3/uL (2.7-7.7); Platelet Count 287 K/mm3 (150-450); RBC Distribution Width CV 12.5 % (11.6-14.6); RBC Distribution Width SD 40.8 fl (35.1-43.9); Red Blood Count 4.84 M/mm3 (4.2-5.4); White Blood Count 10.3 K/mm3 (4.4-11.0)
[2018-02-27 11:30] LABS: POSITIVE COUNT NO; POSITIVE DIFFERENTIAL NO; POSITIVE MORPHOLOGY NO
[2018-02-27 11:49] LABS: Albumin, Serum 3.4 g/dL (3.2-5.0); BUN 14 mg/dL (7-18); BUN/Creat Ratio 14.4 RATIO (10-20); Calcium,Total 8.5 mg/dL (8.5-10.1); Chloride 109 mmol/L (98-107); Creatinine, Serum 0.97 mg/dL (0.55-1.02); EST Glomerular Filtration Rate 64 mL/min (>60); Est Glom Filt Rate - Afr Amer 77 mL/min (>60); Glucose 83 mg/dL (74-106); Phosphorus 3.2 mg/dL (2.5-4.9); Potassium 4.3 mmol/L (3.5-5.1); Sodium Level 137 mmol/L (136-145)
[2018-02-27 11:59] LABS: Vitamin D,25 Hydroxy 40.5 ng/mL (29.95-100.01)
[2018-02-27 13:08] LABS: Microalbumin,Random Urine < 5.0 mg/L (NO RANGE EST.); Protein, Urine (Random) < 6.0 mg/dL (<11.9)
== END ==
PROVIDERS: Family Provider Internal Medicine; PCP Internal Medicine; Referring Provider Pediatrics Pediatric Nephrology; Visit Provider Pediatrics Pediatric Nephrology
DX: Z13.0 Encounter for screening for diseases of the blood and blood-forming organs and certain disorders involving the immune mechanism (principal); N18.2 Chronic kidney disease, stage 2 (mild)
CPT/HCPCS: 36415; 80069; 82043; 82306; 82570; 83970; 84156; 85025

== ENCOUNTER → 2018-03-14 16:06 | Outpatient (CLI) | payer OTHER, SELFPAY ==
[2018-02-20 14:51] VITALS: BMI 30.9
[2018-03-14 17:25] LABS: AST(SGOT) 16 U/L (15-37); Alanine Aminotransfer ALT/SGPT 21 U/L (13-56); Albumin, Serum 3.4 g/dL (3.2-5.0); Alkaline Phosphatase 82 U/L (45-117); Bilirubin, Direct 0.09 mg/dL (0.00-0.30); Globulin 3.1 g/dL (2.2-4.2); Protein, Total 6.5 g/dL (6.4-8.2)
--- OUTSIDE RECORDS SUMMARY | 2018-04-30 23:25 | XMS RPT_ITS ---
:1965 Author Organization OHIP Support Name Relationship Address Phone TREVER GENAO Unavailable [address] + [place] [address] TRILOCSCH Unavailable [address] + [place] [address] TREVER GENAO Unavailable [address] + [place] [address] TRILOCSCH Unavailable [address] + [place] [address] TREVER GENAO Unavailable [address] + [place] [address] TRILOCSCH Unavailable [address] + [place] [address] TREVER GENAO Unavailable [address] + [place] [address] TRILOCSCH Unavailable [address] + [place] [address] TREVER GENAO Unavailable [address] + [place] [address] TRILOCSCH Unavailable [address] + [place] [address] TREVER GENAO Unavailable [address] + [place] [address] TRILOCSCH Unavailable [address] + [place] [address] TREVER GENAO Unavailable [address] + [place] [address] TRILOCSCH Unavailable [address] + [place] [address] TREVER GENAO Unavailable [address] + [place] [address] TRILOCSCH Unavailable [address] + [place] [address] TREVER GENAO Unavailable [address] + [place] [address] TRILOCSCH Unavailable [address] + [place] [address] TREVER GENAO Unavailable [address] + [place] [address] TRILOCSCH Unavailable [address] + [place] [address] TREVER GENAO Unavailable [address] + [place] [address] TRILOCSCH Unavailable [address] + [place] [address] BIRGITTREVER PANDA Unavailable [address] + [place] [address] TRILOCSCH Unavailable [address] + [place] [address] TREVER GENAO Unavailable [address] + [place] [address] TRILOCSCH Unavailable [address] + [place] [address] TREVER GENAO Unavailable [address] + [place] [address] TRILOCSCH Unavailable [address] + [place] [address] BIRGIT, T Unavailable [address] + [place] [address] TRILOCSCH Unavailable [address] + [place] [address] BIRGIT, T Unavailable [address] + [place] [address] TRILOCSCH Unavailable [address] + [place] [address] BIRGIT, T Unavailable [address] + [place] [address] TRILOCSCH Unavailable [address] + [place] [address] BIRGIT, T Unavailable [address] + [place] [address] TRILOCSCH Unavailable [address] + [place] [address] BIRGIT, T Unavailable [address] + [place] [address] TRILOCSCH Unavailable [address] + [place] [address] BIRGIT, T Unavailable [address] + [place] [address] TRILOCSCH Unavailable [address] + [place] [address] BIRGIT, T Unavailable [address] + [place] [address] TRILOCSCH Unavailable [address] + [place] [address] Care Team Providers Name Role Phone PARIS FREY ([facility]) Attending Unavailable PARIS FREY ([facility]) Referring Unavailable PARIS FREY ([facility]) Attending Unavailable PARIS FREY ([facility]) Referring Unavailable THA REILLY Referring Unavailable THA REILLY Attending Unavailable Cassie, Aaron Attending Unavailable Cassie, Aaron Referring Unavailable Oleghe, Efewongbe Primary Care Unavailable Juan F Cordero [employer] Attending Unavailable Oleghe, Efewongbe Referring Unavailable Oleghe, Efewongbe Primary Care Unavailable Cassie, Aaron Attending Unavailable Oleghe, Efewongbe Primary Care Unavailable Cassie, Aaron Referring Unavailable PARIS WITT Attending Unavailable PARIS WITT Referring Unavailable Oleghe, Efewongbe Primary Care Unavailable Oleghe, Efewongbe Attending Unavailable Oleghe, Efewongbe Referring Unavailable Oleghe, Efewongbe Primary Care Unavailable Cassie, Aaron Attending Unavailable Cassie, Aaron Referring Unavailable Oleghe, Efewongbe Primary Care Unavailable Cassie, Aaron Attending Unavailable Cassie, Aaron Referring Unavailable Oleghe, Efewongbe Primary Care Unavailable Juan F Cordero [employer] Attending Unavailable Oleghe, Efewongbe Referring Unavailable Cassie, Aaron Attending Unavailable Cassie, Aaron Referring Unavailable Oleghe, Efewongbe Primary Care Unavailable Cassie, Aaron Attending Unavailable Cassie, Aaron Referring Unavailable Oleghe, Efewongbe Primary Care Unavailable Juan F Cordero [employer] Attending Unavailable Oleghe, Efewongbe Referring Unavailable Oleghe, Efewongbe Primary Care Unavailable Cassie, Aaron Attending Unavailable Cassie, Aaron Referring Unavailable Oleghe, Efewongbe Primary Care Unavailable Oleghe, Efewongbe Attending Unavailable Oleghe, Efewongbe Referring Unavailable Oleghe, Efewongbe Primary Care Unavailable Juan F Cordero [employer] Attending Unavailable Juan F Cordero [employer] Referring Unavailable Oleghe, Efewongbe Primary Care Unavailable Cassie, Aaron Consulting Unavailable Celestino Zacarias Attending Unavailable Oleghe, Efewongbe Referring Unavailable Juan F Cordero [employer] [employer] Attending Unavailable Oleghe, Efewongbe Referring Unavailable Ludivina Yang Attending Unavailable Oleghe, Efewongbe Referring Unavailable Cassie, Aaron Attending Unavailable Cassie, Aaron Referring Unavailable Oleghe, Efewongbe Primary Care Unavailable Oleghe, Efewongbe Attending Unavailable Oleghe, Efewongbe Referring Unavailable Oleghe, Efewongbe Primary Care Unavailable Oleghe, Efewongbe Attending Unavailable Oleghe, Efewongbe Referring Unavailable Oleghe, Efewongbe Attending Unavailable Oleghe, Efewongbe Referring Unavailable PROBLEMS PROBLEMS DATE TYPE CONDITION / CODE ATTENDING STATUS SOURCE 04/14/2018 Unknown Q61.3 - Polycystic Acssie, Aaron Active [facility], unspecified / Community Q61.3(ICD-10) Hospital Repository 03/15/2018 Unknown E78.5 - Oleghe, Active [place] Hyperlipidemia, Efewongbe Community unspecified / Hospital E78.5(ICD-10) Repository 02/27/2018 Unknown N18.2 - Chronic Cassie, Aaron Active [facility] kidney disease, stage Community 2 (mild) / Hospital N18.2(ICD-10) Repository 02/27/2018 Unknown Z13.0 - Encounter for Cassie, Aaron Active [place] screening for Community diseases of the [facility] and blood-forming Repository organs and certain disorders involving the immune mechanism / Z13.0(ICD-10) 12/09/2017 Active Encounter for NA Active [facility] for malignant [place] neoplasm of breast / Repository Z12.31(ICD-10) 09/23/2017 Active Other specified NA Active [facility] noninflammatory [facility] disorders of vulva [place] and perineum / Repository N90.89(ICD-10) 07/19/2017 Unknown G47.00 - Insomnia, CorderoJuan F tam Active [place] unspecified / [facility] Community G47.00(ICD-10) Hospital Repository 07/19/2017 Unknown F41.8 - Other Cordero, Juan F Active [facility] specified anxiety [facility] Community disorders / Hospital F41.8(ICD-10) Repository 07/19/2017 Unknown R61 - Generalized Cordero, Juan F Active [place] hyperhidrosis / [facility] Community R61(ICD-10) Hospital Repository 07/19/2017 Unknown Z13.29 - Encounter Juan F Cordero Active [place] for screening for [facility] Community other suspected Hospital endocrine disorder / Repository Z13.29(ICD-10) PROCEDURES PROCEDURES No Procedure Records FoundRESULTS RESULTS URGENT CARE VISIT Observed: 04/22/2018 Status: F Source: [place] REPORT 11:39 AM [facility] REPOSITORY [facility] [address] [place] [address] OFFICE VISIT Date of Service: 04/22/18 MR#: [id number] Acct: [id number] Name: KYM GENAO Neli Rep #: [id number] : 1965 Provider: Ludivina Yang Age/Sex: 53/F [place] [facility] [place]: Signed Intake Vital Signs04/22/18 Body Mass Index (BMI) 30.9 04/22/18 Height 5 ft 5 in Intake Visit Reasons: Sinus infection Chief Complaint: Sinus Infection [employer] Data Processor Required: No Accompanied by: Self Is patient in pain?: No Allergies No Known Allergies Allergy (Verified 04/22/18 09:05) Medications Lisinopril 20 mg PO DAILY 02/15/17 [History Confirmed 04/22/18] ascorbic acid (vitamin C) 1,000 mg tablet 1 g PO Q6H 04/01/17 [History Confirmed 04/22/18] cholecalciferol (vitamin D3) 2,000 unit capsule 2,000 unit PO ONCE 04/01/17 [History Confirmed 04/22/18] multivitamin tablet 1 tab PO QAM 04/01/17 [History Confirmed 04/22/18] fluoxetine 10 mg capsule 10 mg PO QPM #90 cap 05/30/17 [Rx Confirmed 04/22/18] fluoxetine 20 mg capsule 20 mg PO QAM #90 cap 05/30/17 [Rx Confirmed 04/22/18] levonorgestrel-ethinyl estradiol 90 mcg-20 mcg tablet 1 tab PO DAILY 08/05/17 [History Confirmed 04/22/18] rosuvastatin 10 mg tablet 10 mg PO QHS #90 tab 11/04/17 [Rx Confirmed 04/22/18] tolvaptan 90 mg (AM)/30 mg (PM) tablets ea PO 12/21/17 [History Confirmed 04/22/18] fluticasone 50 mcg/actuation nasal spray,suspension 2 spray INTRANASAL DAILY #47.4 g 02/20/18 [Rx Confirmed 04/22/18] azithromycin 250 mg tablet See Rx Instructions PO .COMPLEX #6 tab 04/22/18 [Rx Confirmed 04/22/18] cetirizine 10 mg tablet 10 mg PO DAILY 04/22/18 [History Confirmed 04/22/18] fluticasone 50 mcg/actuation nasal spray,suspension 2 spray INTRANASAL DAILY 04/22/18 [History Confirmed 04/22/18] PFS Medical History Hyperlipemia (Chronic) Seasonal allergies (Chronic) Back pain (Acute) History of bloody stools (Acute) Kidney disease (Acute) Sciatica (Acute) HTN (hypertension) (Chronic) Mitral valve prolapse (Chronic) Surgical History History of D AND C (Acute) History of delivery (Acute) Normal colonoscopy (Acute) Family History Father Heart disease aortic aneurysm at 38 Hyperlipemia Hypertension Kidney disease Grandmother Breast cancer Grandmother Cancer uterine Sister Brain aneurysm passed at 27 Social History Smoking Status: Never smoker alcohol intake: current alcohol intake frequency: a few times a week Alcohol type: wine substance use type: does not use what type of physical activity do you participate in: walking frequency: daily HPI HPI Chief Complaint: Sinus Infection Details: KYM GENAO, is a 53 F who presents to the office today for concerns over a sinus infection. 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 Positive for: Headache, body ache, fever, chills, sinus congestion/pressure, ear pressure, sore throat, cough Negative for: N/D/V She has used OTC medications with some relief. ROS Const Constitutional: Positive for body ache, fatigue, fever(s) and headache(s) Eyes Eyes: Positive for light sensitivity; no discharge or change in vision ENT ENT: Positive for headache(s), nasal congestion, nasal discharge, sinus pressure, post nasal drip and sore throat Resp Respiratory: Positive for cough Cardio Cardiology: No chest pain at rest, chest pain with exertion or shortness of breath Gastro GI: No diarrhea, nausea/dyspepsia or Vomiting blood/hematemesis Neuro Neurology: Positive for headache(s) Endo Endocrine: Positive for fatigue Exam Const General: cooperative, no acute distress, ill appearing acutely Orientation: alert, oriented x3 HENMT Head: atraumatic, normocephalic Ears: TM abnormal erythematous on the right, retracted on the left and wth effusion purulent bilaterally Nose: mucous membranes and turbinates abnormal erythematous and boggy, nasal discharge purulent Mouth: moist mucous membranes Throat: posterior oropharynx abnormal edema and erythema, postnasal drainage Eyes Sclera: sclerae normal Cornea: corneas normal Pupils: PERRL EOM: EOM intact bilaterally Neck Neck: no lymphadenopathy, trachea midline, supple Neck mass: No Thyroid: thyroid normal Resp Effort AND Inspection: normal respiratory effort Auscultation: Bilateral: Clear to Auscultation Cardio Palpation: normal PMI Rate: regular rate Rhythm: regular rhythm Heart Sounds: S1 normal, S2 normal, no click, no gallops, no murmurs, no rubs GI Auscultation: normal bowel sounds Percussion: normal to percussion Palpation: soft, no hepatosplenomegaly, nontender Skin General: no rashes or lesions noted Neuro General: alert, oriented x3, CN's II-XI intact bilaterally, no focal motor deficits Assessment AND Plan Problems 1. Acute non-recurrent pansinusitis J01.40 2. Non-recurrent acute suppurative otitis media of both ears without spontaneous rupture of tympanic membranes H66.003 Plan Advised patient to complete course of antibiotics given. Advised patient on the importance of hydration. Recommended the use of [id number] support from Advil, Tylenol and alko-jnc-ljcyfzq cold medications to help alleviate symptoms. Did review maximum dosing on each of these medications to avoid accidental overdose of medications. Medications New: Coding Level of Care Code Off vis,est,level 4 Diagnoses Acute non-recurrent pansinusitis J01.40 Chronicity: acute Recurrence: non-recurrent Sinusitis location: pansinusitis Non-recurrent acute suppurative otitis media of both ears without spontaneous rupture of tympanic membranes H66.003 Chronicity: acute Laterality: bilateral Otitis media type: suppurative Recurrence: non-recurrent Spontaneous tympanic membrane rupture: without spontaneous rupture 04/22/18 1139 <Electronically signed by Ludivina CAMPOS> Date Ludivina CAMPOS Cosigner Signature: Date (if applicable) CC: RENAL PROFILE Collected: 04/14/2018 Status: F Source: [place] 4:07 PM [facility] REPOSITORY TYPE CODE TESTS RESULT OUT OF RANGE REFERENCE UNITS LAB L501.0100 74-106 mg/dL Normal GLU 102 Result Comment: Fasting Glucose result from 100 to 125 mg/dL suggests IMPAIRED HOMEOSTASIS per A.D.A. criteria. Please note revised GLUCOSE reference range effective 2017. LAB L501.1000 7-18 mg/dL High BUN 19 LAB L501.1100 0.55-1.02 mg/dL Normal CREAT,SERUM 0.94 Result Comment: The validity of the calculated GFR AND GFRAA in patients over 70 years has not been determined. Clinical correlation is essential. LAB L501.1110 >60 mL/min Normal EST GFR 66 Result Comment: Non- GFR Calc LAB L501.1115 >60 mL/min Normal EST GFR - AA 80 Result Comment: GFR Calc LAB L501.1300 10-20 RATIO High BUN/CRE 20.1 LAB L501.1800 3.2-5.0 g/dL Normal ALB 3.4 LAB L501.2200 8.5-10.1 mg/dL CA Normal 8.6 LAB L501.2300 2.5-4.9 mg/dL Normal PHOS 4.1 LAB L501.5300 136-145 mmol/L NA Normal 140 LAB L501.5600 3.5-5.1 mmol/L K Normal 4.8 LAB L501.5900 98-107 mmol/L High CL 108 LAB L501.6100 21.0-32.0 mmol/L Low CO2 20.0 Performed By: #### L500.3600 #### [facility] [address] [place], [address] INTERNAL MEDICINE Observed: 03/15/2018 Status: F Source: [place] OFFICE VISIT 6:09 PM [facility] REPOSITORY [facility] [address] [place] [address] [place] [address] OFFICE VISIT Date of Service: 03/15/18 MR#: [id number] Acct: [id number] Name: KYM GENAO Rep #: [id number] : 1965 Provider: Sean Salamanca MD Age/Sex: 52/F Location: [facility] Status: Signed Intake Vital Signs03/15/18 Body Mass Index (BMI) 30.9 03/15/18 Height 5 ft 5 in 03/15/18 Weight: 201 lb 03/15/18 Body Mass Index (BMI) 33.4 03/15/18 Blood Pressure 144/79 H Intake Visit Reasons: 3 MO FU Chief Complaint: 3 Mo FU Is patient in pain?: No Allergies No Known Allergies Allergy (Verified 03/15/18 16:22) Medications Lisinopril 20 mg PO DAILY 02/15/17 [History Confirmed 03/15/18] ascorbic acid (vitamin C) 1,000 mg tablet 1 g PO Q6H 04/01/17 [History Confirmed 03/15/18] cholecalciferol (vitamin D3) 2,000 unit capsule 2,000 unit PO ONCE 04/01/17 [History Confirmed 03/15/18] multivitamin tablet 1 tab PO QAM 04/01/17 [History Confirmed 03/15/18] fluoxetine 10 mg capsule 10 mg PO QPM #90 cap 05/30/17 [Rx Confirmed 03/15/18] fluoxetine 20 mg capsule 20 mg PO QAM #90 cap 05/30/17 [Rx Confirmed 03/15/18] levonorgestrel-ethinyl estradiol 90 mcg-20 mcg tablet 1 tab PO DAILY 08/05/17 [History Confirmed 03/15/18] rosuvastatin 10 mg tablet 10 mg PO QHS #90 tab 11/04/17 [Rx Confirmed 03/15/18] tolvaptan 90 mg (AM)/30 mg (PM) tablets ea PO 12/21/17 [History Confirmed 03/15/18] fluticasone 50 mcg/actuation nasal spray,suspension 2 spray INTRANASAL DAILY #47.4 g 02/20/18 [Rx Confirmed 03/15/18] [facility] Medical History Hyperlipemia (Chronic) Seasonal allergies (Chronic) Back pain (Acute) History of bloody stools (Acute) Kidney disease (Acute) Sciatica (Acute) HTN (hypertension) (Chronic) Mitral valve prolapse (Chronic) Surgical History History of D AND C (Acute) History of delivery (Acute) Normal colonoscopy (Acute) Family History Father Heart disease aortic aneurysm at 38 Hyperlipemia Hypertension Kidney disease Grandmother Breast cancer Grandmother Cancer uterine Sister Brain aneurysm passed at 27 Social History Smoking Status: Never smoker alcohol intake: current alcohol intake frequency: a few times a week Alcohol type: wine substance use type: does not use what type of physical activity do you participate in: walking frequency: daily HPI HPI Chief Complaint: 3 Mo FU Details: KYM GENAO, is a 52yo F who presents to the office today for follow-up of her chronic medical conditions. No acute concerns at this time. During her last visit she had indicated interest in tapering off her antidepressant as patient thought she was in a better place however she states that she had worsening of her symptoms on stopping and so she restarted. Denies any concerns at this time. Also reports chronic cough ongoing over the last couple of months. Occasional episodes of choking sensation. 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 Concern about bilateral feet pain which is said to be worse on standing/walking after prolonged sitting. Patient is overweight and has a history of flat feet. ROS Const Constitutional: No chills, fatigue, fever(s), frequent falls, malaise, weakness, sleep problems or change in appetite Eyes Eyes: No blurry vision, change in vision, double vision, discharge or visual disturbances ENT ENT: No abnormal hearing, ear pain, ear pressure, tinnitus or dizziness/vertigo Resp Respiratory: No cough, shortness of breath or wheezing Cardio Cardiology: No chest pain at rest, chest pain with exertion, shortness of breath, dyspnea on exertion, generalized swelling, irregular heart rhythm, lightheadedness, orthopnea, fast heart rate or palpitations Gastro GI: No abdominal pain, change in bowel habits, constipation, diarrhea, nausea/dyspepsia or vomiting Genitourinary-Female: No difficulty urinating, burning urination, painful urination, urinary incontinence, urinary frequency, urinary urgency, urinary hesitancy, urinary retention, Frequent nighttime urination/ nocturia, sexual problems, genital lesions, abnormal vaginal bleeding, pelvic pain, vaginal dryness, vaginal odor or Vaginal Itching Musc Musculoskeletal: No joint pain, back pain, joint swelling, limited range of motion, numbness or tingling Skin Skin: No change in skin color, itching, rash or wounds Breast Breast: No breast lump or breast pain Neuro Neurology: No frequent falls, weakness, visual disturbances, abnormal hearing, numbness, tingling, unsteady gait/balance, dizziness, loss of vision or memory loss Psych Psychiatric: No change in appetite, No memory loss, No anxiety, No depression, No Thoughts of harming yourself/Others Endo Endocrine: No fatigue, heat intolerance, increased thirst/drinking, increased hunger or increased urination Aller/Imm Allergy/Immunologic: No wheezing, itchy eyes or seasonal allergy symptoms Hossein/Lymp Hematologic/Lymphatic: No easy bleeding, easy bruising or enlarged lymph nodes Exam Const General: cooperative, no acute distress, well developed Nutritional Appearance: obese Orientation: alert, awake, oriented x3 HENMT Head: atraumatic, normocephalic, normal to inspection Ears: hearing grossly normal bilaterally Resp Effort AND Inspection: normal respiratory effort, able to speak in complete sentences Auscultation: Bilateral: Clear to Auscultation Cardio Rate: regular rate Rhythm: regular rhythm Heart Sounds: S1 normal, S2 normal GI Palpation: soft, no hepatosplenomegaly Neuro General: alert, awake, oriented x3, moves all extremities, CN's II-XI intact bilaterally Extrem General: no clubbing, cyanosis or edema Psych Appearance: grossly normal Mental Status: mental status grossly normal Mood: congruent mood Affect: normal affect Assessment AND Plan 1. Anxiety and depression F41.9; F32.9 Plan Doing well after being back on fluoxetine. Continue current management. 2. Chronic cough R05 Plan Likely ROEL inhibitor induced. Per patient, her deputy sheriff lieutenant is not open to switching however she states that she will bring this up with him at her next visit. Might be worthwhile to try losartan. Advised to call with any worsening concerns or symptoms. 3. Bilateral foot pain M79.671; M79.672 Plan Obese, history of flat feet, likely plantar fasciitis/tendinitis. Good supportive footwear recommended. Stretching exercises also recommended. If symptoms persist, will refer to podiatry. 4. Hyperlipemia E78.5 Plan Currently on Crestor. Lipid profile in about a month. Continue current management and lifestyle/dietary modifications. This note was generated with [employer] dictation software. It may contain incorrect words, spelling, and punctuation that were not noted in checking the note before signing. Orders Orders: Coding Level of Care Code Off vis,est,level 3 Diagnoses Anxiety and depression F41.9; F32.9 Chronic cough R05 Bilateral foot pain M79.671; M79.672 Hyperlipemia E78.5 03/15/18 1809 <Electronically signed by Sean Salamanca MD> Date Sean Palacioigner Signature: Date (if applicable) CC: LIVER PROFILE Collected: 03/14/2018 Status: F Source: [place] 4:10 PM [facility] REPOSITORY TYPE CODE TESTS RESULT OUT OF RANGE REFERENCE UNITS LAB L501.1500 6.4-8.2 g/dL Normal T PROT 6.5 LAB L501.1800 3.2-5.0 g/dL Normal ALB 3.4 LAB L501.1950 2.2-4.2 g/dL Normal GLOB 3.1 LAB L501.4100 15-37 U/L Normal AST 16 LAB L501.4305 45-117 U/L Normal ALK P 82 LAB L501.4405 13-56 U/L Normal ALT 21 LAB L501.4600 0.20-1.00 mg/dL Normal T BILI 0.20 LAB L501.4700 0.00-0.30 mg/dL Normal D BILI 0.09 Performed By: #### L500.3400 #### [facility] [address] [place], [address] CBC W/DIFF, AUTOMATED Collected: 02/27/2018 Status: F Source: [place] 11:07 AM [facility] REPOSITORY TYPE CODE TESTS RESULT OUT OF RANGE REFERENCE UNITS LAB L100.1000 4.4-11.0 K/mm3 Normal WBC 10.3 LAB L100.1200 4.2-5.4 M/mm3 Normal RBC 4.84 LAB L100.1300 12.0-15.0 g/dl Normal HGB 14.6 LAB L100.1400 37-47 % Normal HCT 43.3 LAB L100.1500 81-99 fL Normal MCV 89.5 LAB L100.1600 27.0-32.0 pg Normal MCH 30.2 LAB L100.1700 32-36 g/gl Normal MCHC 33.7 LAB L100.1810 11.6-14.6 % Normal RDW CV 12.5 LAB L100.1820 35.1-43.9 fl Normal RDW SD 40.8 LAB L100.1900 150-450 K/mm3 Normal PLT 287 LAB L100.2000 6.2-12.0 fl Normal MPV 9.2 LAB L100.2100 47-70 % Normal NEUT% 62.0 LAB L100.2200 19-41 % Normal LY% 25.4 LAB L100.2300 0-10 % Normal MONO% 8.7 LAB L100.2400 0-5 % Normal EO% 2.8 LAB L100.2500 0-1 % Normal BASO% 0.6 LAB L100.2550 0.0-0.9 % Normal IM GRAN % 0.500 Result Comment: IG% - Immature Granulocytes (promyelocytes, myelocytes and metamyelocytes) > 1% indicates that a LEFT SHIFT is Present. LAB L100.2620 2.0-7.7 X10 3/uL Normal Absolute Neut 6.4 LAB L100.2720 0.83-4.51 X10 3/ul Normal Absolute Lymph 2.63 Performed By: #### L100.0100 #### [facility] [address] [place], [address] RENAL PROFILE Collected: 02/27/2018 Status: F Source: [place] 11:07 AM [facility] REPOSITORY TYPE CODE TESTS RESULT OUT OF RANGE REFERENCE UNITS LAB L501.0100 74-106 mg/dL Normal GLU 83 Result Comment: Please note revised GLUCOSE reference range effective 2017. LAB L501.1000 7-18 mg/dL Normal BUN 14 LAB L501.1100 0.55-1.02 mg/dL Normal CREAT,SERUM 0.97 Result Comment: The validity of the calculated GFR AND GFRAA in patients over 70 years has not been determined. Clinical correlation is essential. LAB L501.1110 >60 mL/min Normal EST GFR 64 Result Comment: Non- GFR Calc LAB L501.1115 >60 mL/min Normal EST GFR - AA 77 Result Comment: GFR Calc LAB L501.1300 10-20 RATIO Normal BUN/CRE 14.4 LAB L501.1800 3.2-5.0 g/dL Normal ALB 3.4 LAB L501.2200 8.5-10.1 mg/dL CA Normal 8.5 LAB L501.2300 2.5-4.9 mg/dL Normal PHOS 3.2 LAB L501.5300 136-145 mmol/L NA Normal 137 LAB L501.5600 3.5-5.1 mmol/L K Normal 4.3 LAB L501.5900 98-107 mmol/L High CL 109 LAB L501.6100 21.0-32.0 mmol/L Low CO2 20.0 Performed By: #### L500.3600 #### [facility] [address] [place], [address] PTHIN Collected: 02/27/2018 Status: F Source: DARIANA 11:07 AM [facility] REPOSITORY TYPE CODE TESTS RESULT OUT OF RANGE REFERENCE UNITS LAB L509.1000 18.4-80.1 pg/mL Normal PTHIN 32.0 Performed By: #### L509.1000 #### [facility] [address] [place], [address] VITAMIN D,25 HYDROXY Collected: 02/27/2018 Status: F Source: DARIANA 11:07 AM [facility] REPOSITORY TYPE CODE TESTS RESULT OUT OF RANGE REFERENCE UNITS LAB L506.1000 29.95-100.01 ng/mL Normal Vitamin D 40.5 25-OH Result Comment: Vitamin D 25(OH) Status Range Deficiency <20 ng/mL (50nmol/L) Insuffciency 20 - 30 ng/mL (50 - 75 nmol/L) Sufficiency 30 - 100 ng/mL (75 - 250 nmol/L) Toxicity >100 ng/mL (>250 nmol/L) Performed By: #### L506.1000 #### [facility] [address] [facility] [address] [place], [address] PROTEIN+CREATININE Collected: Status: F Source: DARIANA RATIO,URINE 02/27/2018 11:07 AM [facility] REPOSITORY TYPE CODE TESTS RESULT OUT OF RANGE REFERENCE UNITS LAB L501.1200 NO RANGE EST. mg/dL 16.10 Normal UR CREAT LAB L501.1930 <11.9 mg/dL < 6.0 Normal PROTEIN,UR. RAN. LAB L501.1940 0-200 mg/g CRE Test Normal not performed PROT:CRE RATIO Performed By: #### L501.0900, L502.0250 #### [facility] [address] [place], [address] MICROALB:CREAT Collected: 02/27/2018 Status: F Source: DARIANA RATIO,RANDOM UR 11:07 AM [facility] REPOSITORY TYPE CODE TESTS RESULT OUT OF RANGE REFERENCE UNITS LAB L502.0500 NO RANGE EST. mg/L < 5.0 Normal MICROALBUMI N,UR LAB L502.0600 <30 mg/g CRE mg/g CRE Test Normal not performed MALB:CREAT Performed By: #### L501.0900, L502.0250 #### [facility] [address] [place], [address] INTERNAL MEDICINE Observed: 02/21/2018 Status: F Source: DARIANA OFFICE VISIT 10:33 AM [facility] REPOSITORY [facility] [address] [place] [address] [place] [address] OFFICE VISIT Date of Service: 02/20/18 MR#: [id number] Acct: [id number] Name: KYM GENAO Rep #: [id number] : 1965 Provider: Juan F Cordero NP Age/Sex: 52/F Location: [facility] Status: Signed Intake Vital Signs02/20/18 Body Mass Index (BMI) 30.9 02/20/18 Height 5 ft 5 in 02/20/18 Weight: 199 lb Intake Visit Reasons: SINUS INF Chief Complaint: sinus symptoms Is patient in pain?: No Allergies No Known Allergies Allergy (Verified 11/25/17 07:40) Medications Cetirizine HCl [Zyrtec] 10 mg PO DAILY 02/15/17 [History Confirmed 11/25/17] Lisinopril 20 mg PO DAILY 02/15/17 [History Confirmed 11/25/17] ascorbic acid (vitamin C) 1,000 mg tablet 1 g PO Q6H 04/01/17 [History Confirmed 11/25/17] cholecalciferol (vitamin D3) 2,000 unit capsule 2,000 unit PO ONCE 04/01/17 [History Confirmed 11/25/17] multivitamin tablet 1 tab PO QAM 04/01/17 [History Confirmed 11/25/17] fluoxetine 10 mg capsule 10 mg PO QPM #90 cap 05/30/17 [Rx Confirmed 11/25/17] fluoxetine 20 mg capsule 20 mg PO QAM #90 cap 05/30/17 [Rx Confirmed 11/25/17] levonorgestrel-ethinyl estradiol 90 mcg-20 mcg tablet 1 tab PO DAILY 08/05/17 [History Confirmed 11/25/17] rosuvastatin 10 mg tablet 10 mg PO QHS #90 tab 11/04/17 [Rx Confirmed 11/25/17] tolvaptan 90 mg (AM)/30 mg (PM) tablets ea PO 12/21/17 [History Confirmed 12/21/17] azithromycin 250 mg tablet See Rx Instructions PO .COMPLEX #6 tab 02/20/18 [Rx Confirmed 02/20/18] dextromethorphan-guaifenesin ER 60 mg-1,200 mg tab,extend release,12hr 1 tab PO Q12H PRN #14 tab 02/20/18 [Rx Confirmed 02/20/18] fluticasone 50 mcg/actuation nasal spray,suspension 2 spray INTRANASAL DAILY #47.4 g 02/20/18 [Rx Confirmed 02/20/18] fluticasone 50 mcg/actuation nasal spray,suspension 2 spray INTRANASAL DAILY #9.9 g 02/20/18 [Rx Confirmed 02/20/18] Post menopausal: Yes PFSH Medical History Hyperlipemia (Chronic) Seasonal allergies (Chronic) Back pain (Acute) History of bloody stools (Acute) Kidney disease (Acute) Sciatica (Acute) HTN (hypertension) (Chronic) Mitral valve prolapse (Chronic) Surgical History History of D AND C (Acute) History of delivery (Acute) Normal colonoscopy (Acute) Family History Father Heart disease aortic aneurysm at 38 Hyperlipemia Hypertension Kidney disease Grandmother Breast cancer Grandmother Cancer uterine Sister Brain aneurysm passed at 27 Social History Smoking Status: Never smoker alcohol intake: current alcohol intake frequency: a few times a week Alcohol type: wine substance use type: does not use what type of physical activity do you participate in: walking frequency: daily HPI HPI Chief Complaint: sinus symptoms Details: KYM GENAO, is a 52 F who presents to the office today for an acute presence of sinus problems times 1.5 weeks. She has a past medical history as listed above. The patient states that she has had sinus pressure, nasal congestion, and nasal discharge with a productive cough of yellow sputum times 1.5 weeks. She has tried [id number] Christy and Mucinex without much relief. She ran out of her Flonase that she has previously taken. 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 She states that the sinus pressure gets worse when leaning forwards. She denies any other aggravating or relieving factors. She otherwise denies any fever, chills, nausea, vomiting, shortness of breath, chest pain or pressure, syncope or presyncopal episodes. She does state that she has done well with Z-Paks in the past for her sinusitis. ROS Const Constitutional: No weight change, body ache, chills, fatigue, sleep problems, fever(s), change in appetite, snoring, weakness, frequent falls, headache(s) or excessive sweating Eyes Eyes: No change in vision, eye pain, light sensitivity or blurry vision ENT ENT: Positive for nasal congestion, sinus pain and sinus pressure; no headache(s), abnormal hearing, ear pain, tinnitus, sore throat or neck pain Resp Respiratory: Positive for cough; no snoring, shortness of breath or wheezing Cardio Cardiology: No excessive sweating, chest pain at rest, chest pain with exertion, shortness of breath, dyspnea on exertion, palpitations, orthopnea or lightheadedness Gastro GI: No abdominal pain, change in bowel habits, constipation, diarrhea, vomiting, nausea/dyspepsia or cramping Genitourinary-Female: No burning urination, painful urination, urinary incontinence, urinary frequency, abnormal vaginal bleeding, pelvic pain or other Musc Musculoskeletal: No neck pain, abnormal walking, joint pain, back pain, limited range of motion, numbness, tingling or muscle weakness Skin Skin: No redness, dry skin, itching, lesions, wounds or rash Neuro Neurology: No weakness, frequent falls, headache(s), abnormal hearing, abnormal walking, numbness, tingling, abnormal speech, dizziness or memory loss Psych Psychiatric: No change in appetite, No memory loss, No anxiety, No depression, No Thoughts of harming yourself/Others Endo Endocrine: No fatigue, excessive sweating, cold intolerance, increased thirst/drinking, heat intolerance, flushing or increased hunger Aller/Imm Allergy/Immunologic: No wheezing, itchy eyes, hives or seasonal allergy symptoms Hossein/Lymp Hematologic/Lymphatic: No easy bleeding, easy bruising or enlarged lymph nodes Exam Const General: cooperative, comfortable, no acute distress Nutritional Appearance: average body habitus, well nourished Orientation: alert, oriented x3 Limitations: mental status not altered HENNE Head: normal to inspection Ears: hearing grossly normal bilaterally, TM abnormal with fluid behind the TM (small clear) bilaterally Nose: external nose normal, mucous membranes and turbinates abnormal (edematous b/l) erythematous Face and sinus: sinus tenderness ethmoid and maxillary Mouth: oral mucosae normal Throat: posterior oropharynx normal, postnasal drainage Neck Neck: no lymphadenopathy Resp Effort AND Inspection: normal respiratory effort, able to speak in complete sentences, normal respiratory pattern, symmetric chest movement, no audible wheezes, no cough Auscultation: Bilateral: Clear to Auscultation Cardio Palpation: normal PMI Rate: regular rate Heart Sounds: S1 normal, S2 normal, normal S1 and S2, no click, no gallops, no murmurs, no rubs GI Inspection: normal to inspection Auscultation: normal bowel sounds, no hyperactive bowel sounds, no hypoactive bowel sounds Palpation: soft, no hepatosplenomegaly Musc Musculoskeletal: No joint tenderness, decreased ROM or muscle weakness Skin General: no rashes or lesions noted, elasticity normal, turgor normal Lesions: no lesions Rashes: no rashes Neuro General: alert, awake, oriented x3, CN's II-XI intact bilaterally Speech: speech normal Gait: normal gait Motor: muscle tone normal throughout Extrem General: normal to inspection, normal gait, no edema, no pedal edema Psych Appearance: grossly normal Mental Status: mental status grossly normal Affect: normal affect Attitude: cooperative Thought Process: normal Assessment AND Plan Problems 1. Acute maxillary sinusitis J01.00 2. Allergic rhinitis J30.9 Plan Patient symptoms are consistent with that of acute maxillary sinusitis and allergic rhinitis. Instructed that it is okay for her to be on Flonase long-term. Refills of Flonase called to her pharmacy. Given the duration of her symptoms we will treat with an antibiotic. Patient is requesting azithromycin and has had done well in the past with this. She may continue with [id number] therapies as well. Discussed conservative management of handwashing, and increasing fluids and rest. Discussed red like symptoms requiring urgent medical attention. Patient verbalized understanding. Patient to follow-up as previously scheduled or sooner if needed Medications New: azithromycin Take two tablets by mouth on day one then one tablet by mouth on days 2-5 6 tabs 0RF fluticasone 50 mcg/actuation (Flonase Allergy2 sprays Intranasal DAILY 47.4 grams 3RF Relief) administer into each nostril Refilled: fluticasone 50 mcg/actuation (Flonase Allergy Rel2 sprays Intranasal DAILY 9.9 grams 0RF ief) administer into each nostril Plan Detail Follow Up As previously scheduled or sooner if needed Coding Level of Care Code Off vis,est,level 3 Diagnoses Acute maxillary sinusitis J01.00 Allergic rhinitis J30.9 02/21/18 1033 <Electronically signed by Juan F BERNARD> Date Juan F BERNARD Cosigner Signature: Date (if applicable) CC: LIVER PROFILE Collected: 02/14/2018 Status: F Source: DARIANA 4:10 PM [facility] REPOSITORY TYPE CODE TESTS RESULT OUT OF RANGE REFERENCE UNITS LAB L501.1500 6.4-8.2 g/dL Normal T PROT 6.5 LAB L501.1800 3.2-5.0 g/dL Normal ALB 3.4 LAB L501.1950 2.2-4.2 g/dL Normal GLOB 3.1 LAB L501.4100 15-37 U/L Normal AST 21 LAB L501.4305 45-117 U/L Normal ALK P 78 LAB L501.4405 13-56 U/L Normal ALT 22 LAB L501.4600 0.20-1.00 mg/dL Normal T BILI 0.30 LAB L501.4700 0.00-0.30 mg/dL Normal D BILI 0.09 Performed By: #### L500.3400 #### [facility] [address] [place], [place], [address] LIVER PROFILE Collected: 01/17/2018 Status: F Source: SOLEN 4:16 PM [facility] REPOSITORY TYPE CODE TESTS RESULT OUT OF RANGE REFERENCE UNITS LAB L501.1500 6.4-8.2 g/dL Normal T PROT 6.8 LAB L501.1800 3.2-5.0 g/dL Normal ALB 3.4 LAB L501.1950 2.2-4.2 g/dL Normal GLOB 3.4 LAB L501.4100 15-37 U/L Normal AST 22 LAB L501.4305 45-117 U/L Normal ALK P 74 LAB L501.4405 13-56 U/L Normal ALT 22 LAB L501.4600 0.20-1.00 mg/dL Normal T BILI 0.50 LAB L501.4700 0.00-0.30 mg/dL Normal D BILI 0.07 Performed By: #### L500.3400 #### [facility] [place], [place], [address] CBC W/DIFF, AUTOMATED Collected: 01/03/2018 Status: F Source: SOLEN 4:07 PM [facility] REPOSITORY TYPE CODE TESTS RESULT OUT OF RANGE REFERENCE UNITS LAB L100.1000 4.4-11.0 K/mm3 Normal WBC 10.5 LAB L100.1200 4.2-5.4 M/mm3 Normal RBC 4.80 LAB L100.1300 12.0-15.0 g/dl Normal HGB 14.5 LAB L100.1400 37-47 % Normal HCT 44.5 LAB L100.1500 81-99 fL Normal MCV 92.7 LAB L100.1600 27.0-32.0 pg Normal MCH 30.2 LAB L100.1700 32-36 g/gl Normal MCHC 32.6 LAB L100.1810 11.6-14.6 % Normal RDW CV 12.4 LAB L100.1820 35.1-43.9 fl Normal RDW SD 41.7 LAB L100.1900 150-450 K/mm3 Normal PLT 293 LAB L100.2000 6.2-12.0 fl Normal MPV 9.5 LAB L100.2100 47-70 % Normal NEUT% 49.6 LAB L100.2200 19-41 % Normal LY% 36.6 LAB L100.2300 0-10 % High MONO% 10.5 LAB L100.2400 0-5 % Normal EO% 2.4 LAB L100.2500 0-1 % Normal BASO% 0.6 LAB L100.2550 0.0-0.9 % Normal IM GRAN % 0.300 Result Comment: IG% - Immature Granulocytes (promyelocytes, myelocytes and metamyelocytes) > 1% indicates that a LEFT SHIFT is Present. LAB L100.2620 2.0-7.7 X10 3/uL Normal Absolute Neut 5.2 LAB L100.2720 0.83-4.51 X10 3/ul Normal Absolute Lymph 3.85 Performed By: #### L100.0100 #### [facility] [address] [place], [place], [id number] PROTEIN+CREATININE Collected: Status: F Source: DARIANA RATIO,URINE 01/03/2018 4:07 PM [facility] REPOSITORY TYPE CODE TESTS RESULT OUT OF RANGE REFERENCE UNITS LAB L501.1200 NO RANGE EST. mg/dL < Normal UR 13.00 CREAT LAB L501.1930 <11.9 mg/dL < 6.0 Normal PROTEIN,UR. RAN. LAB L501.1940 0-200 mg/g CRE Test Normal not performed PROT:CRE RATIO Performed By: #### L501.0900, L502.0250 #### [facility] [address] [place], [place], [address] MICROALB:CREAT Collected: 01/03/2018 Status: F Source: DARIANA RATIO,RANDOM UR 4:07 PM [facility] REPOSITORY TYPE CODE TESTS RESULT OUT OF RANGE REFERENCE UNITS LAB L502.0500 NO RANGE EST. mg/L < 5.0 Normal MICROALBUMI N,UR LAB L502.0600 <30 mg/g CRE mg/g CRE Test Normal not performed MALB:CREAT Performed By: #### L501.0900, L502.0250 #### [facility] [address] [place], [address] PROTEIN, TOTAL Collected: 01/03/2018 Status: F Source: SOLEN 4:07 PM [facility] REPOSITORY TYPE CODE TESTS RESULT OUT OF RANGE REFERENCE UNITS LAB L501.1500 6.4-8.2 g/dL Normal T PROT 7.4 LAB L501.1950 2.2-4.2 g/dL Normal GLOB 3.9 LAB L501.2000 0.9-2.4 RATIO Normal A/G 0.9 Performed By: #### L001.0705, L500.3600, L501.4100, L501.4305, L501.4405, L501.4600, L501.4700 #### [facility] [address] [place], [address] RENAL PROFILE Collected: 01/03/2018 Status: F Source: SOLEN 4:07 PM [facility] REPOSITORY TYPE CODE TESTS RESULT OUT OF RANGE REFERENCE UNITS LAB L501.0100 74-106 mg/dL Normal GLU 78 Result Comment: Please note revised GLUCOSE reference range effective 2017. LAB L501.1000 7-18 mg/dL Normal BUN 14 LAB L501.1100 0.55-1.02 mg/dL Normal CREAT,SERUM 1.00 Result Comment: The validity of the calculated GFR AND GFRAA in patients over 70 years has not been determined. Clinical correlation is essential. LAB L501.1110 >60 mL/min Normal EST GFR 62 Result Comment: Non- GFR Calc LAB L501.1115 >60 mL/min Normal EST GFR - AA 75 Result Comment: GFR Calc LAB L501.1300 10-20 RATIO Normal BUN/CRE 14.0 LAB L501.1800 3.2-5.0 g/dL Normal ALB 3.5 LAB L501.2200 8.5-10.1 mg/dL CA Normal 8.5 LAB L501.2300 2.5-4.9 mg/dL Normal PHOS 2.9 LAB L501.5300 136-145 mmol/L NA Normal 138 LAB L501.5600 3.5-5.1 mmol/L K Normal 3.9 LAB L501.5900 98-107 mmol/L CL Normal 106 LAB L501.6100 21.0-32.0 mmol/L Normal CO2 25.0 Performed By: #### L001.0705, L500.3600, L501.4100, L501.4305, L501.4405, L501.4600, L501.4700 #### [facility] [address] [place], [address] AST(SGOT) Collected: 01/03/2018 Status: F Source: SOLEN 4:07 PM [facility] REPOSITORY TYPE CODE TESTS RESULT OUT OF RANGE REFERENCE UNITS LAB L501.4100 15-37 U/L Normal AST 15 Performed By: #### L001.0705, L500.3600, L501.4100, L501.4305, L501.4405, L501.4600, L501.4700 #### [facility] [address] [facility] [place], [address] ALKALINE PHOSPHATASE Collected: 01/03/2018 Status: F Source: SOLEN 4:07 PM [facility] REPOSITORY TYPE CODE TESTS RESULT OUT OF RANGE REFERENCE UNITS LAB L501.4305 45-117 U/L Normal ALK P 80 Performed By: #### L001.0705, L500.3600, L501.4100, L501.4305, L501.4405, L501.4600, L501.4700 #### [facility] [address] [place], [address] ALANINE AMINOTRANSFERAS Collected: 01/03/2018 Status: F Source: SOLEN (SGPT) 4:07 PM [facility] REPOSITORY TYPE CODE TESTS RESULT OUT OF RANGE REFERENCE UNITS LAB L501.4405 13-56 U/L Normal ALT 24 Performed By: #### L001.0705, L500.3600, L501.4100, L501.4305, L501.4405, L501.4600, L501.4700 #### [facility] [address] [facility] [address] [place], [place], [id number] TOTAL BILIRUBIN Collected: 01/03/2018 Status: F Source: SOLEN 4:07 PM [facility] REPOSITORY TYPE CODE TESTS RESULT OUT OF RANGE REFERENCE UNITS LAB L501.4600 0.20-1.00 mg/dL Normal T BILI 0.40 Performed By: #### L001.0705, L500.3600, L501.4100, L501.4305, L501.4405, L501.4600, L501.4700 #### [facility] [address] [place], [address] BILIRUBIN, DIRECT Collected: 01/03/2018 Status: F Source: SOLEN 4:07 [facility] REPOSITORY TYPE CODE TESTS RESULT OUT OF RANGE REFERENCE UNITS LAB L501.4700 0.00-0.30 mg/dL Normal D BILI 0.08 Performed By: #### L001.0705, L500.3600, L501.4100, L501.4305, L501.4405, L501.4600, L501.4700 #### [facility] [place], [address] PTHIN Collected: 01/03/2018 Status: F Source: SOLEN 4:07 [facility] REPOSITORY TYPE CODE TESTS RESULT OUT OF RANGE REFERENCE UNITS LAB L509.1000 18.4-80.1 pg/mL Normal PTHIN 22.0 Performed By: #### L509.1000 #### [facility] [address] [place], [address] VITAMIN D,25 HYDROXY Collected: 01/03/2018 Status: F Source: SOLEN 4:07 [facility] REPOSITORY TYPE CODE TESTS RESULT OUT OF RANGE REFERENCE UNITS LAB L506.1000 29.95-100.01 ng/mL Normal Vitamin D 41.4 25-OH Result Comment: Vitamin D 25(OH) Status Range Deficiency <20 ng/mL (50nmol/L) Insuffciency 20 - 30 ng/mL (50 - 75 nmol/L) Sufficiency 30 - 100 ng/mL (75 - 250 nmol/L) Toxicity >100 ng/mL (>250 nmol/L) Performed By: #### L506.1000 #### [facility] [address] [place], [address] INTERNAL MEDICINE Observed: 12/23/2017 Status: F Source: DARIANA OFFICE VISIT 1:35 PM [facility] [address] [place] [address] OFFICE VISIT Date of Service: 12/21/17 MR#: [id number] Acct: [id number] Name: KYM GENAO Rep #: [id number] : 1965 Provider: Sean Salamanca MD Age/Sex: 52/F Location: [facility] Status: Signed Intake Vital Signs12/21/17 Height 5 ft 5.5 in Intake Visit Reasons: 3 MO FU Chief Complaint: follow-up visit Is patient in pain?: No Allergies No Known Allergies Allergy (Verified 11/25/17 07:40) Medications Cetirizine HCl [Zyrtec] 10 mg PO DAILY 02/15/17 [History Confirmed 11/25/17] Lisinopril 20 mg PO DAILY 02/15/17 [History Confirmed 11/25/17] ascorbic acid (vitamin C) 1,000 mg tablet 1 g PO Q6H 04/01/17 [History Confirmed 11/25/17] cholecalciferol (vitamin D3) 2,000 unit capsule 2,000 unit PO ONCE 04/01/17 [History Confirmed 11/25/17] multivitamin tablet 1 tab PO QAM 04/01/17 [History Confirmed 11/25/17] fluoxetine 10 mg capsule 10 mg PO QPM #90 cap 05/30/17 [Rx Confirmed 11/25/17] fluoxetine 20 mg capsule 20 mg PO QAM #90 cap 05/30/17 [Rx Confirmed 11/25/17] levonorgestrel-ethinyl estradiol 90 mcg-20 mcg tablet 1 tab PO DAILY 08/05/17 [History Confirmed 11/25/17] rosuvastatin 10 mg tablet 10 mg PO QHS #90 tab 11/04/17 [Rx Confirmed 11/25/17] fluticasone 50 mcg/actuation nasal spray,suspension 2 spray INTRANASAL DAILY #47.4 g 11/25/17 [Rx Confirmed 11/25/17] tolvaptan 90 mg (AM)/30 mg (PM) tablets ea PO 12/21/17 [History Confirmed 12/21/17] Post menopausal: Yes PFSH Medical History Hyperlipemia (Chronic) Seasonal allergies (Chronic) Back pain (Acute) History of bloody stools (Acute) Kidney disease (Acute) Sciatica (Acute) HTN (hypertension) (Chronic) Mitral valve prolapse (Chronic) Surgical History History of D AND C (Acute) History of delivery (Acute) Normal colonoscopy (Acute) Family History Father Heart disease aortic aneurysm at 38 Hyperlipemia Hypertension Kidney disease Grandmother Breast cancer Grandmother Cancer uterine Sister Brain aneurysm passed at 27 Social History Smoking Status: Never smoker alcohol intake: current alcohol intake frequency: a few times a week Alcohol type: wine substance use type: does not use what type of physical activity do you participate in: walking frequency: daily HPI HPI Chief Complaint: follow-up visit Details: KYM GENAO, is a 52yo F who presents to the office today for follow-up of her chronic medical conditions. She has no complaints at this time. Recently started on tolvaptan for history of polycystic kidney disease. 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 Has been on fluoxetine for management of anxiety and depression however patient states that she feels well now and is ready to taper off this medication. She also attests to sleeping well. ROS Const Constitutional: No weight change, body ache, chills, fatigue, sleep problems, fever(s), change in appetite, snoring, weakness, frequent falls, headache(s) or excessive sweating Eyes Eyes: No change in vision, eye pain, light sensitivity or blurry vision ENT ENT: No headache(s), abnormal hearing, ear pain, tinnitus, nasal congestion, sore throat or neck pain Resp Respiratory: No snoring, cough, shortness of breath or wheezing Cardio Cardiology: No excessive sweating, chest pain at rest, chest pain with exertion, shortness of breath, dyspnea on exertion, palpitations, orthopnea or lightheadedness Gastro GI: No abdominal pain, change in bowel habits, constipation, diarrhea, vomiting, nausea/dyspepsia or cramping Genitourinary-Female: No burning urination, painful urination, urinary incontinence, urinary frequency, abnormal vaginal bleeding, pelvic pain or other Musc Musculoskeletal: No neck pain, abnormal walking, joint pain, back pain, limited range of motion, numbness or tingling Skin Skin: No redness, dry skin, itching, lesions, wounds or rash Neuro Neurology: No weakness, frequent falls, headache(s), abnormal hearing, abnormal walking, numbness, tingling, abnormal speech, dizziness or memory loss Psych Psychiatric: No change in appetite, No memory loss, No anxiety, No depression, No Thoughts of harming yourself/Others Endo Endocrine: No fatigue, excessive sweating, cold intolerance, increased thirst/drinking, heat intolerance, flushing or increased hunger Aller/Imm Allergy/Immunologic: No wheezing, itchy eyes, hives or seasonal allergy symptoms Hossein/Lymp Hematologic/Lymphatic: No easy bleeding, easy bruising or enlarged lymph nodes Exam Const General: cooperative, no acute distress Orientation: alert, awake, oriented x3 [facility] Head: atraumatic, normocephalic, normal to inspection Ears: hearing grossly normal bilaterally Resp Effort AND Inspection: normal respiratory effort, able to speak in complete sentences Auscultation: Bilateral: Clear to Auscultation Cardio Rate: regular rate Rhythm: regular rhythm Heart Sounds: S1 normal, S2 normal GI Palpation: soft, no hepatosplenomegaly Neuro General: alert, awake, oriented x3, moves all extremities, CN's II-XI intact bilaterally Extrem General: no clubbing, cyanosis or edema Psych Appearance: grossly normal Mood: congruent mood Affect: normal affect Assessment AND Plan 1. Anxiety and depression F41.9; F32.9 Plan Improved. Now wants to taper off. Instructed to taper off over the next month. Advised to call with any questions or concerns. 2. Hypertension I10 Plan Optimally controlled. Continue current medication. Continue lifestyle and dietary modifications. 3. Shoulder pain, right M25.511 Plan Resolved. Will monitor. 4. Polycystic kidney disease Q61.3 Plan Currently follows up with nephrology and has recently been started on tolvaptan. Continue management as per nephrology. 5. Healthcare maintenance Z00.00 Plan Last colonoscopy a year ago, 10 year follow-up recommended. Follows up with Dr. Reilly at the [facility] and recently had a mammogram and Pap smear both said to be within normal. Will request records. Flu shot recommended. This note was generated with [employer] dictation software. It may contain incorrect words, spelling, and punctuation that were not noted in checking the note before signing. Plan Detail Other Medications Discontinued: codeine-guaifenesin 10-100 mg/5 mL (Cheratussin AC) Discontinu5- 10 mL PO Q6H PRN cough ed Reason: Pt no longer taking Follow Up 3 Months Coding Level of Care Code Off vis,est,level 3 Diagnoses Anxiety and depression F41.9; F32.9 Hypertension I10 Shoulder pain, right M25.511 Polycystic kidney disease Q61.3 Healthcare maintenance Z00.00 12/23/17 1335 <Electronically signed by Sean Salamanca MD> Date Sean Salamanca MD Cosigner Signature: Date (if applicable) CC: CNCO Observed: 12/09/2017 Status: COMPLETED Source: [place] 11:56 AM [facility] [place] REPOSITORY HNO ID: [id number] Author: Mammography Coordinator Service: (none) Author Type: Physician Type: Letter Filed: 12/12/2017 11:32 PM Note Text: December 09, 2017 PID: [id number] Kym Genao [address] [place] [address] Dear Ms. Genao, We are pleased to inform you that the results of your recent breast imaging exam on 12/09/2017 are normal. Your mammogram demonstrates that you have dense breast tissue, which could hide abnormalities. Dense breast tissue, in and of itself, is a relatively common condition. Therefore, this information is not provided to cause undue concern; rather, it is to raise your awareness and promote discussion with your health care provider regarding the presence of dense breast tissue in addition to other risk factors. Early detection of cancer is very important. We also understand recommendations regarding breast cancer screening are controversial. Please discuss with your primary care provider which strategy is best for you and whether a mammogram is right for you. Your imaging studies and report will be kept on file at [facility] as part of your permanent medical record and are available for your continuing care. Thank you for allowing us to help in meeting your health care needs. Sincerely, Dr. Mcknight Interpreting Radiologist [facility] (Normal over 40) CNOV Observed: 12/09/2017 Status: COMPLETED Source: [place] 9:00 AM [facility] [place] REPOSITORY Office Visit (WOOB) KYM GENAO ([id number]) 1965 F CHT Date Time Provider Department 12/09/17 9:00 AM THA REILLY During your visit today, we recorded the following information about you: Blood pressure Weight Height 112/68 88.5 kg 1.664 m Tha Reilly MD 12/09/2017 9:24 AM Signed Kym Genao is a 52 year old who presents for her annual gynecologic exam with complaints, hot flushes. Waking her up once a night most nights, not drenching sweats. Some during the day. Going on several months. Stable lately. Still taking continuous OCPs and no spotting or bleeding. No vaginal dryness. Postmenopausal: uncertain, has been on OCPs for menstrual control HRT use: No. Last Pap: 2016 normal HPV: 2016 negative History of abnormal pap: No Last mammogram: 2018 pending History of abnormal mammogram: No Sexually active: Yes Obstetric History T0 L1 SAB1 TAB0 Ectopic0 Multiple0 Live Births0 Comment: Pt also had 2 Step- children PAST MEDICAL HISTORY Diagnosis Date - Allergic rhinitis, cause unspecified Allergic rhinitis - Hypertension - Mitral valve disorders(424.0) - Other and unspecified hyperlipidemia - Polycystic kidney PAST SURGICAL HISTORY Procedure Laterality Date - DELIVERY ONLY 10/29/96 , low cervical - COLONOSCOP W/ OR W/O [facility] SPEC 02/18/2017 [facility] - DANDC, DIAG AND/OR THERAPEUTIC 1996 Dilation AND curettage FAMILY HISTORY Problem Relation Age of Onset - Hypertension Father - Coronary Artery Disease Father first LA/angioplasty age 40's -- MULTPLE interventions - other (aortic anuerysm) Father age 38 - other (polycystic kidney disease) Father - Cancer Maternal Grandmother ENDOMETRIAL CANCER - Breast Cancer Paternal Grandmother - other (brain anuerysm) Sister - other (Polycystic Kidney Disease) Paternal Aunt SOCIAL HISTORY Social History Substance Use Topics - Smoking status: Never Smoker - Smokeless tobacco: Never Used - Alcohol use Yes Comment: occasionally- has wine periodically with dinner REVIEW OF SYSTEMS Abdomen: No abdominal pain, nausea, vomiting, diarrhea, or constipation. No bloating, early satiety, indigestion, or increased flatulence. Bladder: No dysuria, gross hematuria, urinary frequency, urinary urgency, or incontinence Breast: No breast lumps, nipple d/c, overlying skin changes, redness or skin retraction Allergies and current medication updated:Yes EXAM: There were no vitals taken for this visit. GENERAL: pleasant, female in no apparent distress HEENT: Normocephalic, atraumatic, mucus membranes moist and no lesions NECK: Supple, full range of motion, no adenopathy and thyroid normal DERMATOLOGY: Normal, without lesions, non-icteric and non-hirsute BREAST: soft, non-tender, symmetric, no dominant mass, normal nipple-areolar complex, no lymphadenopathy and no nipple discharge CHEST: Normal inspiratory effort ABDOMEN: soft, non-tender and no masses PELVIC: external genitalia normal, normal Bartholin's glands, urethra, [place]'s glands, no vulvar lesions, no cervical lesions, good vaginal support, physiologic discharge present, normal appearing perineal body and perianal region BIMANUAL: uterus normal size, shape and consistency, no adnexal masses and non-tender RECTOVAGINAL: deferred. NEURO: alert and oriented x3,exam grossly non-focal EXTREMITIES: normal ASSESSMENT/PLAN: 1) Health maintenance: Pap/HPV up to date. Mammogram ordered Colon cancer screening: up to date with screening d/w her r/b/a to cont. OCPs during perimenopausal transition, agrees to continue 2) Follow up one year or sooner as needed Tha Reilly MD Referring Provider: SELF [200] Allergies As of Date: 12/09/2017 (No Known Allergies) Date Reviewed: 12/09/2017 Reviewed by: Soledad Mirza Ma - Fully Assessed Reason for Visit: Yearly Exam With Mammogram [188] Visit Diagnoses:Encounter for gynecological examination (general) (routine) without abnormal findings [Z01.419] Encounter for screening mammogram for breast cancer [Z12.31] Order(s):[facility] SCREENING [[id number]] Order #: [id number] FUTURE Levonorgestrel-Ethinyl Estrad (JACKI) 90-20 mcg per tabletTake 1 tablet by mouth once daily. For continuous use, active pills only, new pack q 3 weeksDisp: 4 PackageRfl: 3 Prescriptions as of 12/09/2017 Sig: FLUTICASONE 50 MCG/ACTUATION * 2 Sprays once daily. JYNARQUE 90 MG (AM)/30 MG (PM* JYNARQUE 45 MG (AM)/15 MG (PM* JYNARQUE 60 MG (AM)/30 MG (PM* LEVONORGESTREL-ETHINYL ESTRAD* Take 1 tablet by mouth once d* CLOTRIMAZOLE-BETAMETHASONE 1 * Apply 1 application to affect* FLUOXETINE 20 MG CAPSULE FLUOXETINE 10 MG CAPSULE LISINOPRIL ORAL Take by mouth. VITAMIN C ORAL Take 1 tablet by mouth. ZYRTEC ORAL Take by mouth. CHOLECALCIFEROL (VITAMIN D3) * Take 1 tablet by mouth once d* ROSUVASTATIN 10 MG TABLET Take 1 tablet by mouth daily * MULTIVITAMIN TABLET Take one(1) tablet daily. LIDOCAINE 2 % MUCOSAL JELLY Apply 1 application to affect* Patient not taking: Reported on 12/09/2017 Problem List As Of Date 12/09/2017 Noted Resolved Other Specified Congenital Anomalies, So Descri* Mixed hyperlipidemia [E78.2] More... Allergic Rhinitis, Cause Unspecified [J30.9] More... General Counseling for Prescription of Oral Con*INVALID FOR*05/11/2012 Polycystic kidney [Q61.3] INVALID FOR* More... Routine general medical examination at a health*INVALID FOR*05/11/2012 Class: Chronic More... Routine gynecological examination [Z01.419] INVALID FOR*05/11/2012 Class: Chronic More... Mitral Valve Insufficiency [I34.0] INVALID FOR* More... Hypothyroidism [E03.9] INVALID FOR*03/25/2016 Hyperlipidemia [E78.5] INVALID FOR* Secondary hypertension [I15.9] INVALID FOR* Prescriptions ordered this encounter Disp Refills Start End LEVONORGESTREL-ETHINYL ESTRADIOL 90 * 4 Pa* 3 12/09/2017 Class: [facility] Route: ORAL Sig: Take 1 tablet by mouth once daily. For continuous use, active pills only, new pack q 3 weeks Medications Discontinued During This Encounter Levonorgestrel-Ethinyl Estrad (AMETH* 4 Pa* 3 12/10/2016 12/09/2017 Class: [facility] Route: ORAL Sig: Take 1 tablet by mouth once daily. For continuous use, active pills only, new pack q 3 weeks Disc: Reason for discontinue is not on file. Disposition: Return in 1 year (on 12/09/2018) for Annual Exam. Follow-up and Disposition History Recorded Encounter Status:Closed by THA REILLY MD on 12/09/17 PROGRESS Observed: 12/09/2017 Status: COMPLETED Source: [place] 8:51 AM [facility] [place] REPOSITORY O ID: [id number] Author: Tha Reilly Service: (none) Author Type: Physician Type: Progress Notes Filed: 12/09/2017 9:24 AM Note Text: Kym Genao is a 52 year old who presents for her annual gynecologic exam with complaints, hot flushes. Waking her up once a night most nights, not drenching sweats. Some during the day. Going on several months. Stable lately. Still taking continuous OCPs and no spotting or bleeding. No vaginal dryness. Postmenopausal: uncertain, has been on OCPs for menstrual control HRT use: No. Last Pap: 2016 normal HPV: 2016 negative History of abnormal pap: No Last mammogram: 2018 pending History of abnormal mammogram: No Sexually active: Yes Obstetric History T0 L1 SAB1 TAB0 Ectopic0 Multiple0 Live Births0 Comment: Pt also had 2 Step- children PAST MEDICAL HISTORY Diagnosis Date - Allergic rhinitis, cause unspecified Allergic rhinitis - Hypertension - Mitral valve disorders(424.0) - Other and unspecified hyperlipidemia - Polycystic kidney PAST SURGICAL HISTORY Procedure Laterality Date - DELIVERY ONLY 10/29/96 , low cervical - COLONOSCOP W/ OR W/O [facility] SPEC 02/18/2017 [facility] - DANDC, DIAG AND/OR THERAPEUTIC 1995 Dilation AND curettage FAMILY HISTORY Problem Relation Age of Onset - Hypertension Father - Coronary Artery Disease Father first LA/angioplasty age 40's -- MULTPLE interventions - other (aortic anuerysm) Father age 38 - other (polycystic kidney disease) Father - Cancer Maternal Grandmother ENDOMETRIAL CANCER - Breast Cancer Paternal Grandmother - other (brain anuerysm) Sister - other (Polycystic Kidney Disease) Paternal Aunt SOCIAL HISTORY Social History Substance Use Topics - Smoking status: Never Smoker - Smokeless tobacco: Never Used - Alcohol use Yes Comment: occasionally- has wine periodically with dinner REVIEW OF SYSTEMS Abdomen: No abdominal pain, nausea, vomiting, diarrhea, or constipation. No bloating, early satiety, indigestion, or increased flatulence. Bladder: No dysuria, gross hematuria, urinary frequency, urinary urgency, or incontinence Breast: No breast lumps, nipple d/c, overlying skin changes, redness or skin retraction Allergies and current medication updated:Yes EXAM: There were no vitals taken for this visit. GENERAL: pleasant, female in no apparent distress HEENT: Normocephalic, atraumatic, mucus membranes moist and no lesions NECK: Supple, full range of motion, no adenopathy and thyroid normal DERMATOLOGY: Normal, without lesions, non-icteric and non-hirsute BREAST: soft, non-tender, symmetric, no dominant mass, normal nipple-areolar complex, no lymphadenopathy and no nipple discharge CHEST: Normal inspiratory effort ABDOMEN: soft, non-tender and no masses PELVIC: external genitalia normal, normal Bartholin's glands, urethra, [place]'s glands, no vulvar lesions, no cervical lesions, good vaginal support, physiologic discharge present, normal appearing perineal body and perianal region BIMANUAL: uterus normal size, shape and consistency, no adnexal masses and non-tender RECTOVAGINAL: deferred. NEURO: alert and oriented x3,exam grossly non-focal EXTREMITIES: normal ASSESSMENT/PLAN: 1) Health maintenance: Pap/HPV up to date. Mammogram ordered Colon cancer screening: up to date with screening d/w her r/b/a to cont. OCPs during perimenopausal transition, agrees to continue 2) Follow up one year or sooner as needed Tha Reilly MD [facility] SCREENING Observed: 12/09/2017 Status: F Source: [place] 8:29 AM [facility] RE[facility] * * *Final Report* * * DATE OF EXAM: Dec 09 2017 8:29AM [facility] 0581 - [facility] SCREENING / PROCEDURE REASON: Encounter for screening mammogram for malignant neoplasm of breast * * * * Physician Interpretation * * * * RESULT: #[id number] - [facility] SCREENING BILATERAL DIGITAL SCREENING MAMMOGRAM WITH CAD: 12/09/2017 HISTORY: Screening Mammogram - patient reports NO breast symptoms /priors available for comparison. RESULT: TECHNIQUE: The study was acquired using full field digital technology and interpreted from soft copy. Current study was also evaluated with a Computer Aided Detection (CAD). Comparison is made to exams dated: 08/25/2016 mammogram - [facility], 08/03/2016 mammogram, and 07/11/2015 mammogram - [facility]. The tissue of both breasts is heterogeneously dense. This may lower the sensitivity of mammography. No significant masses, calcifications, or other findings are seen in either breast. There has been no significant interval change. IMPRESSION: NEGATIVE There is no mammographic evidence of malignancy.A 1 year screening mammogram is recommended. Anirudh phillips/howard:12/09/2017 11:56:23 Debeader: Norma Garza RT(R)(M), [facility] letter sent: Normal over 40 Mammogram BI-RADS: 1 Negative Law Secretary: Howard Transcribe Date/Time: Dec 09 2017 8:16A Dictated by: ANIRUDH MCKNIGHT MD This examination was interpreted and the report reviewed and electronically signed by: ANIRUDH MCKNIGHT MD on Dec 09 2017 11:56AM EST [id number] PROGRESS Observed: 12/09/2017 Status: COMPLETED Source: [place] 8:15 AM [facility] REPOSITORY HNO ID: [id number] Author: Ana Maria Peterson Service: (none) Author Type: (none) Type: Progress Notes Filed: 12/09/2017 8:15 AM Note Text: Radiology Service Progress Note PATIENT NAME: Kym Genao DATE OF SERVICE: December 09, 2017 TIME: 8:15 AM PATIENT IDENTITY VERIFICATION COMPLETED USING TWO (2) METHODS: Patient confirmed name verbally and Date of . PATIENT GENDER DATA: Female. status: : No status: NO. PATIENT RELEVANT IMPLANT DATA REVIEWED: Not Applicable RADIOLOGY DEPARTMENT: [facility] DATA: Not applicable SIGNED BY: Ana Maria Gallegos Rt December 09, 2017 8:15 AM CBC W/DIFF, AUTOMATED Collected: 12/06/2017 Status: F Source: [place] 4:16 PM [facility] REPOSITORY TYPE CODE TESTS RESULT OUT OF RANGE REFERENCE UNITS LAB L100.1000 4.4-11.0 K/mm3 High WBC 11.4 LAB L100.1200 4.2-5.4 M/mm3 Normal RBC 4.69 LAB L100.1300 12.0-15.0 g/dl Normal HGB 14.3 LAB L100.1400 37-47 % Normal HCT 43.4 LAB L100.1500 81-99 fL Normal MCV 92.5 LAB L100.1600 27.0-32.0 pg Normal MCH 30.5 LAB L100.1700 32-36 g/gl Normal MCHC 32.9 LAB L100.1810 11.6-14.6 % Normal RDW CV 12.6 LAB L100.1820 35.1-43.9 fl Normal RDW SD 42.4 LAB L100.1900 150-450 K/mm3 Normal PLT 276 LAB L100.2000 6.2-12.0 fl Normal MPV 9.3 LAB L100.2100 47-70 % Normal NEUT% 57.4 LAB L100.2200 19-41 % Normal LY% 31.5 LAB L100.2300 0-10 % Normal MONO% 8.9 LAB L100.2400 0-5 % Normal EO% 1.6 LAB L100.2500 0-1 % Normal BASO% 0.4 LAB L100.2550 0.0-0.9 % Normal IM GRAN % 0.200 Result Comment: IG% - Immature Granulocytes (promyelocytes, myelocytes and metamyelocytes) > 1% indicates that a LEFT SHIFT is Present. LAB L100.2620 2.0-7.7 X10 3/uL Normal Absolute Neut 6.5 LAB L100.2720 0.83-4.51 X10 3/ul Normal Absolute Lymph 3.58 Performed By: #### L100.0100 #### [facility] [address] [place], [place], [id number] RENAL PROFILE Collected: 12/06/2017 Status: F Source: [place] 4:16 PM [facility] REPOSITORY TYPE CODE TESTS RESULT OUT OF RANGE REFERENCE UNITS LAB L501.0100 74-106 mg/dL Normal GLU 77 Result Comment: Please note revised GLUCOSE reference range effective 2017. LAB L501.1000 7-18 mg/dL High BUN 20 LAB L501.1100 0.55-1.02 mg/dL Normal CREAT,SERUM 0.92 Result Comment: The validity of the calculated GFR AND GFRAA in patients over 70 years has not been determined. Clinical correlation is essential. LAB L501.1110 >60 mL/min Normal EST GFR 69 Result Comment: Non- GFR Calc LAB L501.1115 >60 mL/min Normal EST GFR - AA 83 Result Comment: GFR Calc LAB L501.1300 10-20 RATIO High BUN/CRE 21.8 LAB L501.1800 3.2-5.0 g/dL Normal ALB 3.5 LAB L501.2200 8.5-10.1 mg/dL CA Normal 8.9 LAB L501.2300 2.5-4.9 mg/dL Normal PHOS 3.7 LAB L501.5300 136-145 mmol/L NA Normal 140 LAB L501.5600 3.5-5.1 mmol/L K Normal 4.4 LAB L501.5900 98-107 mmol/L CL Normal 106 LAB L501.6100 21.0-32.0 mmol/L Normal CO2 22.0 Performed By: #### L500.3600 #### [facility] [address] [place], [place], [address] PROTEIN+CREATININE Collected: Status: F Source: [place] RATIO,URINE 12/06/2017 4:16 PM [facility] REPOSITORY TYPE CODE TESTS RESULT OUT OF RANGE REFERENCE UNITS LAB L501.1200 NO RANGE EST. mg/dL 50.70 Normal UR CREAT LAB L501.1930 <11.9 mg/dL < 6.0 Normal PROTEIN,UR. RAN. LAB L501.1940 0-200 mg/g CRE Test Normal not performed PROT:CRE RATIO Performed By: #### L501.0900, L502.0500 #### [facility] [address] [place], [address] MICROALBUMIN,RANDOM URINE Collected: Status: F Source: [place] 12/06/2017 4:16 PM [facility] REPOSITORY TYPE CODE TESTS RESULT OUT OF RANGE REFERENCE UNITS LAB L502.0500 NO RANGE EST. mg/L Normal < 5.0 MICROALBUMIN ,UR Performed By: #### L501.0900, L502.0500 #### [facility] [address] [place], [address] VITAMIN D,25 HYDROXY Collected: 12/06/2017 Status: F Source: [place] 4:16 PM [facility] REPOSITORY TYPE CODE TESTS RESULT OUT OF RANGE REFERENCE UNITS LAB L506.1000 29.95-100.01 ng/mL Normal Vitamin D 44.2 25-OH Result Comment: Vitamin D 25(OH) Status Range Deficiency <20 ng/mL (50nmol/L) Insuffciency 20 - 30 ng/mL (50 - 75 nmol/L) Sufficiency 30 - 100 ng/mL (75 - 250 nmol/L) Toxicity >100 ng/mL (>250 nmol/L) Performed By: #### L506.1000 #### [facility] [address] [place], [address] PTHIN Collected: 12/06/2017 Status: F Source: [place] 4:16 PM [facility] REPOSITORY TYPE CODE TESTS RESULT OUT OF RANGE REFERENCE UNITS LAB L509.1000 18.4-80.1 pg/mL Low PTHIN 16.6 Performed By: #### L509.1000 #### [facility] [address] [place], [address] INTERNAL MEDICINE Observed: 11/25/2017 Status: F Source: [place] OFFICE VISIT 8:39 AM [facility] REPOSITORY [facility] [address] [place] [address] [place] [address] OFFICE VISIT Date of Service: 11/25/17 MR#: [id number] Acct: [id number] Name: KYM GENAO Rep #: [id number] : 1965 Provider: Juan F Cordero NP Age/Sex: 52/F Location: [facility] Status: Signed Intake Vital Signs11/25/17 Height 5 ft 5.5 in 11/25/17 Weight: 187 lb 11/25/17 Body Mass Index (BMI) 30.6 11/25/17 Blood Pressure 139/77 Intake Visit Reasons: Cough Chief Complaint: cough Is patient in pain?: No Allergies No Known Allergies Allergy (Verified 11/25/17 07:40) Medications Cetirizine HCl [Zyrtec] 10 mg PO DAILY 02/15/17 [History Confirmed 11/25/17] Lisinopril 20 mg PO DAILY 02/15/17 [History Confirmed 11/25/17] ascorbic acid (vitamin C) 1,000 mg tablet 1 g PO Q6H 04/01/17 [History Confirmed 11/25/17] cholecalciferol (vitamin D3) 2,000 unit capsule 2,000 unit PO ONCE 04/01/17 [History Confirmed 11/25/17] multivitamin tablet 1 tab PO QAM 04/01/17 [History Confirmed 11/25/17] fluoxetine 10 mg capsule 10 mg PO QPM #90 cap 05/30/17 [Rx Confirmed 11/25/17] fluoxetine 20 mg capsule 20 mg PO QAM #90 cap 05/30/17 [Rx Confirmed 11/25/17] levonorgestrel-ethinyl estradiol 90 mcg-20 mcg tablet 1 tab PO DAILY 08/05/17 [History Confirmed 11/25/17] rosuvastatin 10 mg tablet 10 mg PO QHS #90 tab 11/04/17 [Rx Confirmed 11/25/17] codeine 10 mg-guaifenesin 100 mg/5 mL oral liquid See Label Instructions PO Q6H PRN #120 ml 11/25/17 [Rx Confirmed 11/25/17] fluticasone 50 mcg/actuation nasal spray,suspension 2 spray INTRANASAL DAILY #47.4 g 11/25/17 [Rx Confirmed 11/25/17] PFSH Medical History Hyperlipemia (Chronic) Seasonal allergies (Chronic) Back pain (Acute) History of bloody stools (Acute) Kidney disease (Acute) Sciatica (Acute) HTN (hypertension) (Chronic) Mitral valve prolapse (Chronic) Surgical History History of D AND C (Acute) History of delivery (Acute) Normal colonoscopy (Acute) Family History Father Heart disease aortic aneurysm at 38 Hyperlipemia Hypertension Kidney disease Grandmother Breast cancer Grandmother Cancer uterine Sister Brain aneurysm passed at 27 Social History Smoking Status: Never smoker alcohol intake: current alcohol intake frequency: a few times a week Alcohol type: wine substance use type: does not use what type of physical activity do you participate in: walking frequency: daily HPI HPI Chief Complaint: cough Details: KYM GENAO, is a 52 F who presents to the office today for an acute complaint of ongoing cough 1 month. She has a past medical history as listed above. The patient states that she has had a cough that has been going on for approximately 1 month. This occurred shortly after her vacation to [place]. She does state that she has seasonal allergies and routinely takes her Zyrtec. 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 She denies any reflux symptoms and denies any association to food. She does state that sometimes it is worse at night due to some of her postnasal drainage. She denies any history of asthma and denies any associated shortness of breath or wheezing. She denies any sick contacts and denies any other aggravating or relieving factors. She is requesting a medication to suppress her cough at nighttime so that she can sleep. She otherwise denies any fever, chills, nausea, vomiting, shortness of breath, chest pain or pressure, syncope or presyncopal episodes. ROS Const Constitutional: No chills, fatigue, fever(s), frequent falls, malaise, weakness, sleep problems or change in appetite Eyes Eyes: Positive for discharge (When gets up in am); no blurry vision, change in vision, double vision or visual disturbances ENT ENT: No abnormal hearing, ear pain, ear pressure, tinnitus or dizziness/vertigo Resp Respiratory: Positive for cough (x 1 month, worse at night, sometimes when eating) Cough: Yes productive; no shortness of breath or wheezing Cardio Cardiology: No chest pain at rest, chest pain with exertion, shortness of breath, dyspnea on exertion, generalized swelling, irregular heart rhythm, lightheadedness, orthopnea, fast heart rate or palpitations Gastro GI: No abdominal pain, change in bowel habits, constipation, diarrhea, nausea/dyspepsia or vomiting Genitourinary-Female: No difficulty urinating, burning urination, painful urination, urinary incontinence, urinary frequency, urinary urgency, urinary hesitancy, urinary retention, Frequent nighttime urination/ nocturia, sexual problems, genital lesions, abnormal vaginal bleeding, pelvic pain, vaginal dryness, vaginal odor or Vaginal Itching Musc Musculoskeletal: No joint pain, back pain, joint swelling, limited range of motion, muscle weakness, numbness or tingling Skin Skin: No change in skin color, itching, rash or wounds Breast Breast: No breast lump or breast pain Neuro Neurology: No frequent falls, weakness, abnormal hearing, numbness, tingling, unsteady gait/balance, dizziness, loss of vision, memory loss or visual disturbances Psych Psychiatric: No memory loss, No anxiety, No change in appetite, No depression, No Thoughts of harming yourself/Others Endo Endocrine: No fatigue, heat intolerance, increased thirst/drinking, increased hunger or increased urination Aller/Imm Allergy/Immunologic: No wheezing, itchy eyes or seasonal allergy symptoms Hossein/Lymp Hematologic/Lymphatic: No easy bleeding, easy bruising or enlarged lymph nodes Exam Const General: cooperative, comfortable, no acute distress Nutritional Appearance: average body habitus, well nourished Orientation: alert, oriented x3 Limitations: mental status not altered [facility] Head: normal to inspection Ears: hearing grossly normal bilaterally, TM abnormal with fluid behind the TM (clear) bilaterally Nose: external nose normal, mucous membranes and turbinates abnormal (edematous and slightly erythematous), no nasal discharge noted Face and sinus: normal facial exam Mouth: oral mucosae normal Throat: postnasal drainage Neck Neck: normal visual inspection, no lymphadenopathy Resp Effort AND Inspection: normal respiratory effort, able to speak in complete sentences, normal respiratory pattern, symmetric chest movement, no audible wheezes, no cough Auscultation: Bilateral: Clear to Auscultation Cardio Palpation: normal PMI Rate: regular rate Heart Sounds: S1 normal, S2 normal, normal S1 and S2, no click, no gallops, no murmurs, no rubs Musc Musculoskeletal: No muscle weakness Skin General: no rashes or lesions noted, elasticity normal, turgor normal Lesions: no lesions Rashes: no rashes Neuro General: alert, awake, oriented x3, CN's II-XI intact bilaterally Speech: speech normal Gait: normal gait Motor: muscle tone normal throughout Psych Appearance: grossly normal Mental Status: mental status grossly normal Affect: normal affect Attitude: cooperative Thought Process: normal Assessment AND Plan Problems 1. Cough R05 2. Seasonal allergies J30.2 Plan Patient does have a nonproductive cough that is concerning to her because it is keeping her awake at night. Per her request will short-term only give her cough syrup with codeine. Discussed how to take this and not to drive while on this medication. Did discuss with her that is most likely related to her seasonal allergies. She has fluid in the ears and edematous nasal mucosa. Will trial her on Flonase. Did discuss that a differential to consider needs to be her ROEL inhibitor and that if she continues to have a dry nonproductive cough, would like her to discuss with nephrology changing the ROEL inhibitor. Patient verbalized understanding. Other differentials to consider include GERD and asthma, though low suspicion at this time. Patient to follow-up as previously scheduled or sooner if needed. Alexandru disclaimer Medications New: fluticasone 50 mcg/actuation (Flonase Allergy Relief) admini2 sprays Intranasal DAILY ster into each nostril Plan Detail Follow Up as prev scheduled Coding Level of Care Code Off vis,est,level 3 Diagnoses Cough R05 Seasonal allergies J30.2 11/25/17 0839 <Electronically signed by Juan F BERNARD> Date Juan F BERNARD Cosigner Signature: Date (if applicable) CC: CBC W/DIFF, AUTOMATED Collected: 11/08/2017 Status: F Source: [place] 10:53 AM [facility] REPOSITORY TYPE CODE TESTS RESULT OUT OF RANGE REFERENCE UNITS LAB L100.1000 4.4-11.0 K/mm3 High WBC 11.9 LAB L100.1200 4.2-5.4 M/mm3 Normal RBC 4.58 LAB L100.1300 12.0-15.0 g/dl Normal HGB 14.2 LAB L100.1400 37-47 % Normal HCT 42.6 LAB L100.1500 81-99 fL Normal MCV 93.0 LAB L100.1600 27.0-32.0 pg Normal MCH 31.0 LAB L100.1700 32-36 g/gl Normal MCHC 33.3 LAB L100.1810 11.6-14.6 % Normal RDW CV 12.7 LAB L100.1820 35.1-43.9 fl Normal RDW SD 42.6 LAB L100.1900 150-450 K/mm3 Normal PLT 345 LAB L100.2000 6.2-12.0 fl Normal MPV 9.0 LAB L100.2100 47-70 % Normal NEUT% 63.2 LAB L100.2200 19-41 % Normal LY% 23.6 LAB L100.2300 0-10 % Normal MONO% 9.6 LAB L100.2400 0-5 % Normal EO% 2.8 LAB L100.2500 0-1 % Normal BASO% 0.5 LAB L100.2550 0.0-0.9 % Normal IM GRAN % 0.300 Result Comment: IG% - Immature Granulocytes (promyelocytes, myelocytes and metamyelocytes) > 1% indicates that a LEFT SHIFT is Present. LAB L100.2620 2.0-7.7 X10 3/uL Normal Absolute Neut 7.5 LAB L100.2720 0.83-4.51 X10 3/ul Normal Absolute Lymph 2.80 Performed By: #### L100.0100 #### [facility] [address] [place], [place], [id number] PROTEIN+CREATININE Collected: Status: F Source: [place] RATIO,URINE 11/08/2017 10:53 AM [facility] REPOSITORY TYPE CODE TESTS RESULT OUT OF RANGE REFERENCE UNITS LAB L501.1200 NO RANGE EST. mg/dL Normal UR CREAT 79.80 LAB L501.1930 <11.9 mg/dL Normal 6.8 PROTEIN,UR.R AN. LAB L501.1940 0-200 mg/g CRE Normal PROT:CRE 85 RATIO Performed By: #### L501.0900, L502.0500 #### [facility] [address] [place], [address] MICROALBUMIN,RANDOM URINE Collected: Status: F Source: [place] 11/08/2017 10:53 AM [facility] REPOSITORY TYPE CODE TESTS RESULT OUT OF RANGE REFERENCE UNITS LAB L502.0500 NO RANGE EST. mg/L Normal 5.9 MICROALBUMIN ,UR Performed By: #### L501.0900, L502.0500 #### [facility] [address] [place], [address] PROTEIN, TOTAL Collected: 11/08/2017 Status: F Source: [place] 10:53 AM [facility] REPOSITORY TYPE CODE TESTS RESULT OUT OF RANGE REFERENCE UNITS LAB L501.1500 6.4-8.2 g/dL Normal T PROT 7.2 LAB L501.1950 2.2-4.2 g/dL Normal GLOB 3.8 LAB L501.2000 0.9-2.4 RATIO Normal A/G 0.9 Performed By: #### L001.0705, L500.3600, L501.4100, L501.4305, L501.4405, L501.4600, L501.4700 #### [facility] [address] [place], [address] RENAL PROFILE Collected: 11/08/2017 Status: F Source: [place] 10:53 AM [facility] REPOSITORY TYPE CODE TESTS RESULT OUT OF RANGE REFERENCE UNITS LAB L501.0100 74-106 mg/dL Normal GLU 77 Result Comment: Please note revised GLUCOSE reference range effective 2017. LAB L501.1000 7-18 mg/dL Normal BUN 18 LAB L501.1100 0.55-1.02 mg/dL High CREAT,SERUM 1.04 Result Comment: The validity of the calculated GFR AND GFRAA in patients over 70 years has not been determined. Clinical correlation is essential. LAB L501.1110 >60 mL/min Low EST GFR 59 Result Comment: Non- GFR Calc LAB L501.1115 >60 mL/min Normal EST GFR - AA 72 Result Comment: GFR Calc LAB L501.1300 10-20 RATIO Normal BUN/CRE 17.3 LAB L501.1800 3.2-5.0 g/dL Normal ALB 3.4 LAB L501.2200 8.5-10.1 mg/dL CA Normal 8.9 LAB L501.2300 2.5-4.9 mg/dL Normal PHOS 3.0 LAB L501.5300 136-145 mmol/L NA Normal 142 LAB L501.5600 3.5-5.1 mmol/L K Normal 4.4 LAB L501.5900 98-107 mmol/L High CL 108 LAB L501.6100 21.0-32.0 mmol/L Normal CO2 24.0 Performed By: #### L001.0705, L500.3600, L501.4100, L501.4305, L501.4405, L501.4600, L501.4700 #### [facility] [address] [place], [place], [id number] AST(SGOT) Collected: 11/08/2017 Status: F Source: [place] 10:53 AM [facility] REPOSITORY TYPE CODE TESTS RESULT OUT OF RANGE REFERENCE UNITS LAB L501.4100 15-37 U/L Low AST 14 Performed By: #### L001.0705, L500.3600, L501.4100, L501.4305, L501.4405, L501.4600, L501.4700 #### [facility] [address] [facility] [place], [place], [address] ALKALINE PHOSPHATASE Collected: 11/08/2017 Status: F Source: [place] 10:53 AM [facility] REPOSITORY TYPE CODE TESTS RESULT OUT OF RANGE REFERENCE UNITS LAB L501.4305 45-117 U/L Normal ALK P 86 Performed By: #### L001.0705, L500.3600, L501.4100, L501.4305, L501.4405, L501.4600, L501.4700 #### [facility] [address] [place], [address] ALANINE AMINOTRANSFERAS Collected: 11/08/2017 Status: F Source: [place] (SGPT) 10:53 AM [facility] REPOSITORY TYPE CODE TESTS RESULT OUT OF RANGE REFERENCE UNITS LAB L501.4405 13-56 U/L Normal ALT 30 Performed By: #### L001.0705, L500.3600, L501.4100, L501.4305, L501.4405, L501.4600, L501.4700 #### [facility] [address] [place], [address] TOTAL BILIRUBIN Collected: 11/08/2017 Status: F Source: [place] 10:53 AM [facility] REPOSITORY TYPE CODE TESTS RESULT OUT OF RANGE REFERENCE UNITS LAB L501.4600 0.20-1.00 mg/dL Normal T BILI 0.30 Performed By: #### L001.0705, L500.3600, L501.4100, L501.4305, L501.4405, L501.4600, L501.4700 #### [facility] [address] [place], [address] BILIRUBIN, DIRECT Collected: 11/08/2017 Status: F Source: [place] 10:53 AM [facility] REPOSITORY TYPE CODE TESTS RESULT OUT OF RANGE REFERENCE UNITS LAB L501.4700 0.00-0.30 mg/dL Normal D BILI 0.09 Performed By: #### L001.0705, L500.3600, L501.4100, L501.4305, L501.4405, L501.4600, L501.4700 #### [facility] [address] [place], [address] VITAMIN D,25 HYDROXY Collected: 11/08/2017 Status: F Source: [place] 10:53 AM [facility] REPOSITORY TYPE CODE TESTS RESULT OUT OF RANGE REFERENCE UNITS LAB L506.1000 29.95-100.01 ng/mL Normal Vitamin D 58.4 25-OH Result Comment: Vitamin D 25(OH) Status Range Deficiency <20 ng/mL (50nmol/L) Insuffciency 20 - 30 ng/mL (50 - 75 nmol/L) Sufficiency 30 - 100 ng/mL (75 - 250 nmol/L) Toxicity >100 ng/mL (>250 nmol/L) Performed By: #### L506.1000 #### [facility] [address] [place], [address] PTHIN Collected: 11/08/2017 Status: F Source: [place] 10:53 AM [facility] REPOSITORY TYPE CODE TESTS RESULT OUT OF RANGE REFERENCE UNITS LAB L509.1000 18.4-80.1 pg/mL Normal PTHIN 21.2 Performed By: #### L509.1000 #### [facility] [address] [place], [address] CNOV Observed: 10/07/2017 Status: COMPLETED Source: [place] 9:30 AM [facility] REPOSITORY Office Visit (WOOB) KYM GENAO ([id number]) 1965 F CHT Date Time Provider Department 10/07/17 9:30 AM PARIS FREY (FOOD TESTER) WOOB During your visit today, we recorded the following information about you: Blood pressure Weight 120/80 85.5 kg Paris Frey APRN.CNP 10/07/2017 10:00 AM Signed Kym Genao is a 52 year old female who presents for problem visit follow-up for genital herpes I infection. HPI: Pain gone, occasional mild itching, lesions healed. PAST MEDICAL HISTORY Diagnosis Date - Allergic rhinitis, cause unspecified Allergic rhinitis - Hypertension - Mitral valve disorders(424.0) - Other and unspecified hyperlipidemia - Polycystic kidney PAST SURGICAL HISTORY Procedure Laterality Date - DELIVERY ONLY 10/29/96 , low cervical - COLONOSCOP W/ OR W/O [facility] SPEC 02/18/2017 [facility] - DANDC, DIAG AND/OR THERAPEUTIC 1996 Dilation AND curettage FAMILY HISTORY Problem Relation Age of Onset - Hypertension Father - Coronary Artery Disease Father first LA/angioplasty age 40's -- MULTPLE interventions - aortic anuerysm [OTHER] Father age 38 - polycystic kidney disease [OTHER] Father - Cancer Maternal Grandmother ENDOMETRIAL CANCER - Breast Cancer Paternal Grandmother - brain anuerysm [OTHER] Sister - Polycystic Kidney Disease [OTHER] Paternal Aunt Social History Marital status: Spouse name: Trever Years of education: 18 Number of children: 1 Occupational History 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 Tries to walk briskly. Diet: Conscientious, whole grains. Veg. Limits red meat. Current Outpatient Prescriptions: FLUoxetine (PROZAC) 20 mg capsule FLUoxetine (PROZAC) 10 mg capsule lidocaine (XYLOCAINE) 2 % jelly Apply 1 application to affected area as needed. LISINOPRIL ORAL Take by mouth. Levonorgestrel-Ethinyl Estrad (JACKI) 90-20 mcg per tablet Take 1 tablet by mouth once daily. For continuous use, active pills only, new pack q 3 weeks ASCORBIC ACID (VITAMIN C ORAL) Take 1 tablet by mouth. CETIRIZINE HCL (ZYRTEC ORAL) Take by mouth. Cholecalciferol, Vitamin D3, 2,000 unit cap Take 1 tablet by mouth once daily. rosuvastatin (CRESTOR) 10 mg tablet Take 1 tablet by mouth daily at bedtime. Fill when due. multivitamin ORAL tablet Take one(1) tablet daily. No current facility-administered medications for this visit. Allergies As of Date: 10/07/2017 (No Known Allergies) Fully Assessed 09/23/2017 REVIEW OF SYSTEMS Abdomen: No bloating, early satiety, indigestion, or increased flatulence. No abdominal pain, nausea, vomiting, diarrhea, or constipation. Bladder: No dysuria, gross hematuria, urinary frequency, urinary urgency, or incontinence. Allergies and current medication updated:Yes EXAM: BP 120/80 Wt 188 lb 9.6 oz (85.5kg) GENERAL: pleasant, female in no apparent distress CHEST: Normal inspiratory effort ABDOMEN: soft and non-tender PELVIC: external genitalia normal, normal Bartholin's glands, urethra, [place]'s glands, no cervical lesions, good vaginal support, physiologic discharge present, normal appearing perineal body and perianal region, healed vulvar lesions bilaterally BIMANUAL:deferred NEURO: alert and oriented x3,exam grossly non-focal ASSESSMENT/PLAN: 1. HSV-1 infection - ICD9: 054.9, ICD10: B00.9 - genital HSV-1 - healed - Given verbal and written UPTODATE information. Discussed etiology, transmission and treatment. Discussed using condom. 2. Vaginal itching - ICD9: 698.1, ICD10: N89.8 (primary diagnosis) - CLOTRIMAZOLE-BETAMETHASONE 1 %-0.05 % TOPICAL CREAM Greater than 75% of visit spent face to face counseling with patient. Follow-up as needed. Paris Frey APRN.[facility] Referring Provider: PARIS FREY ([facility]) [[id number]] Allergies As of Date: 10/07/2017 (No Known Allergies) Date Reviewed: 10/07/2017 Reviewed by: Paris ([facility]) Shante - Fully Assessed Reason for Visit: Follow Up [171] Cmt: for vaginal infection Primary Visit Diagnosis:Vaginal itching [N89.8] Other Visit Diagnosis:HSV-1 infection [B00.9] Order(s):clotrimazole-betamethasone (LOTRISONE) creamApply 1 application to affected area twice daily.Disp: 45 gRfl: 1 Prescriptions as of 10/07/2017 Sig: FLUOXETINE 20 MG CAPSULE FLUOXETINE 10 MG CAPSULE LIDOCAINE 2 % MUCOSAL JELLY Apply 1 application to affect* LISINOPRIL ORAL Take by mouth. LEVONORGESTREL-ETHINYL ESTRAD* Take 1 tablet by mouth once d* VITAMIN C ORAL Take 1 tablet by mouth. ZYRTEC ORAL Take by mouth. CHOLECALCIFEROL (VITAMIN D3) * Take 1 tablet by mouth once d* ROSUVASTATIN 10 MG TABLET Take 1 tablet by mouth daily * MULTIVITAMIN TABLET Take one(1) tablet daily. CLOTRIMAZOLE-BETAMETHASONE 1 * Apply 1 application to affect* Problem List As Of Date 10/07/2017 Noted Resolved Other Specified Congenital Anomalies, So Descri* Mixed hyperlipidemia [E78.2] More... Allergic Rhinitis, Cause Unspecified [J30.9] More... General Counseling for Prescription of Oral Con*INVALID FOR*05/11/2012 Polycystic kidney [Q61.3] INVALID FOR* More... Routine general medical examination at a health*INVALID FOR*05/11/2012 Class: Chronic More... Routine gynecological examination [Z01.419] INVALID FOR*05/11/2012 Class: Chronic More... Mitral Valve Insufficiency [I34.0] INVALID FOR* More... Hypothyroidism [E03.9] INVALID FOR*03/25/2016 Hyperlipidemia [E78.5] INVALID FOR* Secondary hypertension [I15.9] INVALID FOR* Prescriptions ordered this encounter Disp Refills Start End CLOTRIMAZOLE-BETAMETHASONE 1 %-0.05 * 45 g 1 10/07/2017 Route: TOPICAL Sig: Apply 1 application to affected area twice daily. Encounter Status:Closed by PARIS FREY on 10/07/17 PROGRESS Observed: 10/07/2017 Status: COMPLETED Source: [place] 9:19 AM [facility] REPOSITORY O ID: [id number] Author: Paris Frey Service: (none) Author Type: Nurse Practitioner Type: Progress Notes Filed: 10/07/2017 10:00 AM Note Text: Kym Genao is a 52 year old female who presents for problem visit follow-up for genital herpes I infection. HPI: Pain gone, occasional mild itching, lesions healed. PAST MEDICAL HISTORY Diagnosis Date - Allergic rhinitis, cause unspecified Allergic rhinitis - Hypertension - Mitral valve disorders(424.0) - Other and unspecified hyperlipidemia - Polycystic kidney PAST SURGICAL HISTORY Procedure Laterality Date - DELIVERY ONLY 10/29/96 , low cervical - COLONOSCOP W/ OR W/O [facility] SPEC 02/18/2017 [facility] - DANDC, DIAG AND/OR THERAPEUTIC 1996 Dilation AND curettage FAMILY HISTORY Problem Relation Age of Onset - Hypertension Father - Coronary Artery Disease Father first LA/angioplasty age 40's -- MULTPLE interventions - aortic anuerysm [OTHER] Father age 38 - polycystic kidney disease [OTHER] Father - Cancer Maternal Grandmother ENDOMETRIAL CANCER - Breast Cancer Paternal Grandmother - brain anuerysm [OTHER] Sister - Polycystic Kidney Disease [OTHER] Paternal Aunt Social History Marital status: Spouse name: Trever Years of education: 18 Number of children: 1 Occupational History 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 Tries to walk briskly. Diet: Conscientious, whole grains. Veg. Limits red meat. Current Outpatient Prescriptions: FLUoxetine (PROZAC) 20 mg capsule FLUoxetine (PROZAC) 10 mg capsule lidocaine (XYLOCAINE) 2 % jelly Apply 1 application to affected area as needed. LISINOPRIL ORAL Take by mouth. Levonorgestrel-Ethinyl Estrad (JACKI) 90-20 mcg per tablet Take 1 tablet by mouth once daily. For continuous use, active pills only, new pack q 3 weeks ASCORBIC ACID (VITAMIN C ORAL) Take 1 tablet by mouth. CETIRIZINE HCL (ZYRTEC ORAL) Take by mouth. Cholecalciferol, Vitamin D3, 2,000 unit cap Take 1 tablet by mouth once daily. rosuvastatin (CRESTOR) 10 mg tablet Take 1 tablet by mouth daily at bedtime. Fill when due. multivitamin ORAL tablet Take one(1) tablet daily. No current facility-administered medications for this visit. Allergies As of Date: 10/07/2017 (No Known Allergies) Fully Assessed 09/23/2017 REVIEW OF SYSTEMS Abdomen: No bloating, early satiety, indigestion, or increased flatulence. No abdominal pain, nausea, vomiting, diarrhea, or constipation. Bladder: No dysuria, gross hematuria, urinary frequency, urinary urgency, or incontinence. Allergies and current medication updated:Yes EXAM: BP 120/80 Wt 188 lb 9.6 oz (85.5kg) GENERAL: pleasant, female in no apparent distress CHEST: Normal inspiratory effort ABDOMEN: soft and non-tender PELVIC: external genitalia normal, normal [place]'s glands, urethra, [place]'s glands, no cervical lesions, good vaginal support, physiologic discharge present, normal appearing perineal body and perianal region, healed vulvar lesions bilaterally BIMANUAL:deferred NEURO: alert and oriented x3,exam grossly non-focal ASSESSMENT/PLAN: 1. HSV-1 infection - ICD9: 054.9, ICD10: B00.9 - genital HSV-1 - healed - Given verbal and written UPTODATE information. Discussed etiology, transmission and treatment. Discussed using condom. 2. Vaginal itching - ICD9: 698.1, ICD10: N89.8 (primary diagnosis) - CLOTRIMAZOLE-BETAMETHASONE 1 %-0.05 % TOPICAL CREAM Greater than 75% of visit spent face to face counseling with patient. Follow-up as needed. Paris Frey APRN.[facility] CBC W/DIFF, AUTOMATED Collected: 09/27/2017 Status: F Source: [place] 7:37 AM [facility] REPOSITORY TYPE CODE TESTS RESULT OUT OF RANGE REFERENCE UNITS LAB L100.1000 4.4-11.0 K/mm3 Normal WBC 7.4 LAB L100.1200 4.2-5.4 M/mm3 Normal RBC 4.62 LAB L100.1300 12.0-15.0 g/dl Normal HGB 14.5 LAB L100.1400 37-47 % Normal HCT 42.6 LAB L100.1500 81-99 fL Normal MCV 92.2 LAB L100.1600 27.0-32.0 pg Normal MCH 31.4 LAB L100.1700 32-36 g/gl Normal MCHC 34.0 LAB L100.1810 11.6-14.6 % Normal RDW CV 12.6 LAB L100.1820 35.1-43.9 fl Normal RDW SD 41.9 LAB L100.1900 150-450 K/mm3 Normal PLT 283 LAB L100.2000 6.2-12.0 fl Normal MPV 9.2 LAB L100.2100 47-70 % Normal NEUT% 52.9 LAB L100.2200 19-41 % Normal LY% 35.1 LAB L100.2300 0-10 % Normal MONO% 9.1 LAB L100.2400 0-5 % Normal EO% 1.8 LAB L100.2500 0-1 % Normal BASO% 0.7 LAB L100.2550 0.0-0.9 % Normal IM GRAN % 0.400 Result Comment: IG% - Immature Granulocytes (promyelocytes, myelocytes and metamyelocytes) > 1% indicates that a LEFT SHIFT is Present. LAB L100.2620 2.0-7.7 X10 3/uL Normal Absolute Neut 3.9 LAB L100.2720 0.83-4.51 X10 3/ul Normal Absolute Lymph 2.59 Performed By: #### L100.0100 #### [facility] [address] [place], [place], [address] PROTEIN+CREATININE Collected: Status: F Source: [facility],URINE 09/27/2017 7:37 AM [facility] REPOSITORY TYPE CODE TESTS RESULT OUT OF RANGE REFERENCE UNITS LAB L501.1200 NO RANGE EST. mg/dL Normal UR CREAT 101.00 LAB L501.1930 <11.9 mg/dL High 13.5 PROTEIN,UR.R AN. LAB L501.1940 0-200 mg/g CRE Normal PROT:CRE 134 RATIO Performed By: #### L501.0900, L502.0250 #### [facility] [address] [place], [place], [id number] MICROALB:CREAT Collected: 09/27/2017 Status: F [facility]37 AM [facility] REPOSITORY TYPE CODE TESTS RESULT OUT OF RANGE REFERENCE UNITS LAB L502.0500 NO RANGE EST. mg/L Normal 21.0 MICROALBUMIN ,UR LAB L502.0600 <30 mg/g CRE mg/g CRE Normal 20.8 MALB:CREAT Performed By: #### L501.0900, L502.0250 #### [facility] [address] [place], [place], [id number] RENAL PROFILE Collected: 09/27/2017 Status: F Source: [place] 7:37 AM [facility] REPOSITORY TYPE CODE TESTS RESULT OUT OF RANGE REFERENCE UNITS LAB L501.0100 74-106 mg/dL Normal GLU 85 Result Comment: Please note revised GLUCOSE reference range effective 2017. LAB L501.1000 7-18 mg/dL High BUN 22 LAB L501.1100 0.55-1.02 mg/dL Normal CREAT,SERUM 0.87 Result Comment: The validity of the calculated GFR AND GFRAA in patients over 70 years has not been determined. Clinical correlation is essential. LAB L501.1110 >60 mL/min Normal EST GFR 73 Result Comment: Non- GFR Calc LAB L501.1115 >60 mL/min Normal EST GFR - AA 88 Result Comment: GFR Calc LAB L501.1300 10-20 RATIO High BUN/CRE 25.2 LAB L501.1800 3.2-5.0 g/dL Normal ALB 3.3 LAB L501.2200 8.5-10.1 mg/dL Low CA 8.3 LAB L501.2300 2.5-4.9 mg/dL Normal PHOS 3.2 LAB L501.5300 136-145 mmol/L NA Normal 140 LAB L501.5600 3.5-5.1 mmol/L K Normal 4.3 LAB L501.5900 98-107 mmol/L CL Normal 106 LAB L501.6100 21.0-32.0 mmol/L Normal CO2 24.0 Performed By: #### L500.3600 #### [facility] [address] [place], [place], [id number] PTHIN Collected: 09/27/2017 Status: F Source: [place] 7:37 AM [facility] REPOSITORY TYPE CODE TESTS RESULT OUT OF RANGE REFERENCE UNITS LAB L509.1000 18.4-80.1 pg/mL Normal PTHIN 31.7 Performed By: #### L509.1000 #### [facility] [address] [place], [address] VITAMIN D,25 HYDROXY Collected: 09/27/2017 Status: F Source: [place] 7:37 AM [facility] REPOSITORY TYPE CODE TESTS RESULT OUT OF RANGE REFERENCE UNITS LAB L506.1000 29.95-100.01 ng/mL Normal Vitamin D 40.6 25-OH Result Comment: Vitamin D 25(OH) Status Range Deficiency <20 ng/mL (50nmol/L) Insuffciency 20 - 30 ng/mL (50 - 75 nmol/L) Sufficiency 30 - 100 ng/mL (75 - 250 nmol/L) Toxicity >100 ng/mL (>250 nmol/L) Performed By: #### L506.1000 #### [facility] [address] [place] [address]. [place], [place], [address] HSVG TYP 1 AND 2 Collected: 09/23/2017 Status: F Source: [facility] 11:57 AM [facility] REPOSITORY TYPE CODE TESTS RESULT OUT OF REFERENCE UNITS RANGE LAB HSVG1L Negative HSV IgG 1 Qualitative Negative Result Comment: No HSV-1 IgG antibodies detected. Patient is presumed not to have had a previous HSV-1 infection. LAB HSVG1 AI Herpes Simplex IgG 1 0.3 Result Comment: INDEX VALUES ARE INTERPRETED FOLLOWS: NEGATIVE SPECIMENS <0.9 EQUIVOCAL SPECIMENS 0.9 TO 1.0 POSITIVE SPECIMENS >=1.1 LAB HSVG2L Negative HSV IgG 2 Qualitative Negative Result Comment: No HSV-2 IgG antibodies detected. Patient is presumed not to have had a previous HSV-2 infection. LAB HSVG2 AI Herpes Simplex IgG 2 <0.2 Result Comment: INDEX VALUES ARE INTERPRETED FOLLOWS: NEGATIVE SPECIMENS <0.9 EQUIVOCAL SPECIMENS 0.9 TO 1.0 POSITIVE SPECIMENS >=1.1 Performed By: #### HSVG12 #### [facility] [address] [id number] HSV1,2/VZV AMPLIF Collected: 09/23/2017 Status: F Source: [place] 10:50 AM [facility] REPOSITORY TYPE CODE TESTS RESULT OUT OF RANGE REFERENCE UNITS LAB HVZSRC Specimen Lesion Source LAB HRPSV1 Abnormal HSV Type 1, Positive for Alert HDA Herpes Simplex virus Type 1 by Molecular Detection. LAB HRPSV2 HSV Type 2, Negative for HDA Herpes Simplex virus Type 2 by Molecular Detection. LAB VZOSV V Zoster Negative for Virus, HDA Varicella Zoster virus by [facility] Detection. Performed By: #### HSVVZV #### [facility] [address] [place], [place] [address] PROGRESS Observed: 09/23/2017 Status: COMPLETED Source: [place] 10:32 AM [facility] REPOSITORY HNO ID: [id number] Author: Paris Frey Service: (none) Author Type: Nurse Practitioner Type: Progress Notes Filed: 09/23/2017 11:47 AM Note Text: Road Train Driver offered: Patient declines. Kym Genao is a 52 year old female who presents for vaginal burning for 2 days. Began with itching which has progressed to mostly burning. Began after intercourse with . Vaginal burning when urine strikes the skin also. Took Z-pack in August for a sinus infection. Vaginal discharge: none. Itching: Yes but mild Dyspareunia: No Fever/chills: No Abdominal pain: No Bladder: Negative for dysuria or frequency Bowel: No blood in stool, pain with BM, tarry stool, persistent diarrhea or constipation Any new sexual partners or concern for STD exposure: No Any history of STDs: None Does your partner have any new complaints: No Are you currently taking any medications to treat vaginitis: Yes, Vagisil helps temporarily Do you use feminine sprays, douches or deodorants: Yes, Oil of Olay body wash, feminine powder Menstrual cycle: no menses - continuous OCPs Contraception: oral contraceptives Last pap: 2016, normal Past medical, surgical, social history, medications and allergies reviewed and updated. OBJECTIVE: BP 110/70 Wt 186 lb (84.4kg) GENERAL: Well developed, well nourished in no apparent distress ABDOMEN: soft, non-tender and no masses PELVIC: external genitalia normal, normal Bartholin's glands, urethra, [place]'s glands, no cervical lesions, good vaginal support, physiologic discharge present, normal appearing perineal body and perianal region, vulvar lesions - vesicular with some scabbed on vesicular base to anterior right and left labia, posterior left labia and perineum. BIMANUAL: deferred ASSESSMENT/PLAN: 1. Vulval lesion - ICD9: 624.8, ICD10: N90.89 - Suspect HSV. Given verbal and written information on HSV and vulvar hygiene. - HERPES SIMPLEX TYPE 1 AND 2 IG - HSV 1,2/VZV AMP MOLECULAR DETECT - VALACYCLOVIR 1 GRAM TABLET - LIDOCAINE 2 % MUCOSAL JELLY Follow-up in 2-3 weeks. Will notify of lab results. Paris Frey APRN.CNP CNOV Observed: 09/23/2017 Status: COMPLETED Source: [place] 10:30 AM [facility] REPOSITORY Office Visit (WOOB) KYM GENAO ([id number]) 1965 F [facility] Date Time Provider Department 09/23/17 10:30 AM PARIS FREY (JOSE) WOOB During your visit today, we recorded the following information about you: Blood pressure Weight 110/70 84.4 kg Paris Frey APRN.CNP 09/23/2017 11:[address] Driver offered: Patient declines. Kym Genao is a 52 year old female who presents for vaginal burning for 2 days. Began with itching which has progressed to mostly burning. Began after intercourse with . Vaginal burning when urine strikes the skin also. Took Z-pack in August for a sinus infection. Vaginal discharge: none. Itching: Yes but mild Dyspareunia: No Fever/chills: No Abdominal pain: No Bladder: Negative for dysuria or frequency Bowel: No blood in stool, pain with BM, tarry stool, persistent diarrhea or constipation Any new sexual partners or concern for STD exposure: No Any history of STDs: None Does your partner have any new complaints: No Are you currently taking any medications to treat vaginitis: Yes, Vagisil helps temporarily Do you use feminine sprays, douches or deodorants: Yes, Oil of Olay body wash, feminine powder Menstrual cycle: no menses - continuous OCPs Contraception: oral contraceptives Last pap: 2016, normal Past medical, surgical, social history, medications and allergies reviewed and updated. OBJECTIVE: BP 110/70 Wt 186 lb (84.4kg) GENERAL: Well developed, well nourished in no apparent distress ABDOMEN: soft, non-tender and no masses PELVIC: external genitalia normal, normal [place]tholin's glands, urethra, [place]'s glands, no cervical lesions, good vaginal support, physiologic discharge present, normal appearing perineal body and perianal region, vulvar lesions - vesicular with some scabbed on vesicular base to anterior right and left labia, posterior left labia and perineum. BIMANUAL: deferred ASSESSMENT/PLAN: 1. Vulval lesion - ICD9: 624.8, ICD10: N90.89 - Suspect HSV. Given verbal and written information on HSV and vulvar hygiene. - HERPES SIMPLEX TYPE 1 AND 2 IG - HSV 1,2/VZV AMP MOLECULAR DETECT - VALACYCLOVIR 1 GRAM TABLET - LIDOCAINE 2 % MUCOSAL JELLY Follow-up in 2-3 weeks. Will notify of lab results. KATHY Romo APRN.CNP 09/23/2017 11:12 AM Signed Minimizing irritation of the vulva (area around the vagina) Wear white cotton underwear. Avoid synthetic fabrics and tight clothing. Sleep wearing shorts or pajama bottoms without underwear. Shower as soon as possible after exercise. Avoid clothing detergents and soaps with perfumes or dyes. Use warm (not hot) water to wash the vulva and if you use soap use a product designed for sensitive skin (like Dove or Cetaphil). Dove unscented bar soap only. Do not douche or use creams/powders in the vulvar area unless instructed by your physician. If you must douche, use only plain warm water. Make sure the vulva is dry before dressing by patting dry with a towel. Avoid vigorous rubbing with the towel. You may want to use the blow dryer (on the cool setting only!) on the vulva. The most important way to let your body heal is by avoiding scratching. Many patients find it difficult to avoid scratching at night when they are most aware of the itchiness. You can try taking Benadryl just before bedtime. Some women find it helpful to wear cotton gloves to bed to avoid scratching at night. Referring Provider: SELF [200] Allergies As of Date: 09/23/2017 (No Known Allergies) Date Reviewed: 09/23/2017 Reviewed by: Paris Frey - Fully Assessed Reason for Visit: Vaginal Problem [117] Cmt: Vaginal Itching and Burning Primary Visit Diagnosis:Vulval lesion [N90.89] Order(s):HERPES SIMPLEX TYPE 1 AND 2 IG [GHUDHO37] Order #: [id number] FUTURE HSV 1,2/VZV AMP MOLECULAR DETECT [SQHSVVZV] Order #: [id number] valACYclovir (VALTREX) 1 gram tabTake 1 tablet by mouth twice daily for 10 days. FOR 10 DAYS.Disp: 20 tabletRfl: 0 lidocaine (XYLOCAINE) 2 % jellyApply 1 application to affected area as needed.Disp: 1 TubeRfl: 2 Prescriptions as of 09/23/2017 Sig: FLUOXETINE 20 MG CAPSULE FLUOXETINE 10 MG CAPSULE LISINOPRIL ORAL Take by mouth. LEVONORGESTREL-ETHINYL ESTRAD* Take 1 tablet by mouth once d* VITAMIN C ORAL Take 1 tablet by mouth. ZYRTEC ORAL Take by mouth. CHOLECALCIFEROL (VITAMIN D3) * Take 1 tablet by mouth once d* ROSUVASTATIN 10 MG TABLET Take 1 tablet by mouth daily * MULTIVITAMIN TABLET Take one(1) tablet daily. VALACYCLOVIR 1 GRAM TABLET Take 1 tablet by mouth twice * LIDOCAINE 2 % MUCOSAL JELLY Apply 1 application to affect* Problem List As Of Date 09/23/2017 Noted Resolved Other Specified Congenital Anomalies, So Descri* Mixed hyperlipidemia [E78.2] More... Allergic Rhinitis, Cause Unspecified [J30.9] More... General Counseling for Prescription of Oral Con*INVALID FOR*05/11/2012 Polycystic kidney [Q61.3] INVALID FOR* More... Routine general medical examination at a health*INVALID FOR*05/11/2012 Class: Chronic More... Routine gynecological examination [Z01.419] INVALID FOR*05/11/2012 Class: Chronic More... Mitral Valve Insufficiency [I34.0] INVALID FOR* More... 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 Avoid synthetic fabrics and tight clothing. Sleep wearing shorts or pajama bottoms without underwear. Shower as soon as possible after exercise. Avoid clothing detergents and soaps with perfumes or dyes. Use warm (not hot) water to wash the vulva and if you use soap use a product designed for sensitive skin (like Dove or Cetaphil). Dove unscented bar soap only. Do not douche or use creams/powders in the vulvar area unless instructed by your physician. If you must douche, use only plain warm water. Make sure the vulva is dry before dressing by patting dry with a towel. Avoid vigorous rubbing with the towel. You may want to use the blow dryer (on the cool setting only!) on the vulva. The most important way to let your body heal is by avoiding scratching. Many patients find it difficult to avoid scratching at night when they are most aware of the itchiness. You can try taking Benadryl just before bedtime. Some women find it helpful to wear cotton gloves to bed to avoid scratching at night. Prescriptions ordered this encounter Disp Refills Start End VALACYCLOVIR 1 GRAM TABLET 20 t* 0 09/23/2017 10/03/2017 Route: ORAL Sig: Take 1 tablet by mouth twice daily for 10 days. FOR 10 DAYS. LIDOCAINE 2 % MUCOSAL JELLY 1 Tu* 2 09/23/2017 Route: TOPICAL Sig: Apply 1 application to affected area as needed. Medications Discontinued During This Encounter codeine-guaiFENesin (ROBITUSSIN AC) * 120 * 0 01/16/2017 09/23/2017 Class: Print RX Route: ORAL Sig: Take 5-10 mL by mouth four times daily as needed for Cough. May cause drowsiness. Patient not taking: Reported on 09/23/2017 Disc: Reason for discontinue is not on file. lisinopril-hydrochlorothiazide (PRIN* 90 t* 2 05/14/2016 09/23/2017 Route: ORAL Sig: Take 1 tablet by mouth every morning. Disc: Reason for discontinue is not on file. Encounter Status:Closed by PARIS FREY on 09/23/17 INTERNAL MEDICINE Observed: 09/20/2017 Status: F Source: [place] OFFICE VISIT 9:32 AM [facility] [place] [place] [address] OFFICE VISIT Date of Service: 09/19/17 MR#: [id number] Acct: [id number] Name: KYM GENAO Rep #: [id number] : 1965 Provider: Sean Salamanca MD Age/Sex: 52/F Location: [facility] Status: Signed Intake Vital Signs09/19/17 Height 5 ft 5.5 in Intake Visit Reasons: 2 MO FU Chief Complaint: 2 month follow-up Is patient in pain?: No Allergies No Known Allergies Allergy (Verified 08/05/17 16:51) Medications Cetirizine HCl [Zyrtec] 10 mg PO DAILY 02/15/17 [History Confirmed 08/05/17] Lisinopril 20 mg PO DAILY 02/15/17 [History Confirmed 08/05/17] ascorbic acid (vitamin C) 1,000 mg tablet 1 g PO Q6H 04/01/17 [History Confirmed 08/05/17] cholecalciferol (vitamin D3) 2,000 unit capsule 2,000 unit PO ONCE 04/01/17 [History Confirmed 08/05/17] multivitamin tablet 1 tab PO QAM 04/01/17 [History Confirmed 07/19/17] rosuvastatin 10 mg tablet 10 mg PO QHS #90 tab 05/09/17 [Rx Confirmed 08/05/17] fluoxetine 10 mg capsule 10 mg PO QPM #90 cap 05/30/17 [Rx Confirmed 08/05/17] fluoxetine 20 mg capsule 20 mg PO QAM #90 cap 05/30/17 [Rx Confirmed 08/05/17] levonorgestrel-ethinyl estradiol 90 mcg-20 mcg tablet 1 tab PO DAILY 08/05/17 [History Confirmed 08/05/17] PFSH Medical History Hyperlipemia (Chronic) Seasonal allergies (Chronic) Back pain (Acute) History of bloody stools (Acute) Kidney disease (Acute) Sciatica (Acute) HTN (hypertension) (Chronic) Mitral valve prolapse (Chronic) Surgical History History of D AND C (Acute) History of delivery (Acute) Normal colonoscopy (Acute) Family History Father Heart disease aortic aneurysm at 38 Hyperlipemia Hypertension Kidney disease Grandmother Breast cancer Grandmother Cancer uterine Sister Brain aneurysm passed at 27 Social History Smoking Status: Never smoker alcohol intake: current alcohol intake frequency: a few times a week Alcohol type: wine substance use type: does not use what type of physical activity do you participate in: walking frequency: daily HPI HPI Chief Complaint: 2 month follow-up Details: KYM GENAO, is a 52yo F who presents to the office today for follow up. She has no acute complaints at this time. She was started on Ambien at her last visit due to problems maintaining sleep. She noted no significant improvement on Ambien and had difficulty staying awake during the day. She discontinued it after 5 doses. ROS Const Constitutional: Positive for sleep problems (trouble staying asleep, didn't do well with Ambien.); no weight change, body ache, chills, fatigue, fever(s), change in appetite, snoring, weakness, frequent falls, headache(s) or excessive sweating Eyes Eyes: No change in vision, eye pain, light sensitivity or blurry vision ENT ENT: No headache(s), abnormal hearing, ear pain, tinnitus, nasal congestion, sore throat or neck pain Resp Respiratory: No snoring, cough, shortness of breath or wheezing Cardio Cardiology: No excessive sweating, chest pain at rest, chest pain with exertion, shortness of breath, dyspnea on exertion, palpitations, orthopnea or lightheadedness Gastro GI: No abdominal pain, change in bowel habits, constipation, diarrhea, vomiting, nausea/dyspepsia or cramping Genitourinary-Female: No burning urination, painful urination, urinary incontinence, urinary frequency, abnormal vaginal bleeding, pelvic pain or other Musc Musculoskeletal: No neck pain, abnormal walking, joint pain, back pain, limited range of motion, numbness or tingling Skin Skin: No redness, dry skin, itching, lesions, wounds or rash Neuro Neurology: No weakness, frequent falls, headache(s), abnormal hearing, abnormal walking, numbness, tingling, abnormal speech, dizziness or memory loss Psych Psychiatric: No change in appetite, No memory loss, No anxiety, No depression, No Thoughts of harming yourself/Others Endo Endocrine: No fatigue, excessive sweating, cold intolerance, increased thirst/drinking, heat intolerance, flushing or increased hunger Aller/Imm Allergy/Immunologic: No wheezing, itchy eyes, hives or seasonal allergy symptoms Hossein/Lymp Hematologic/Lymphatic: No easy bleeding, easy bruising or enlarged lymph nodes Exam Const General: cooperative, no acute distress Orientation: alert, awake, oriented x3 HENMT Head: atraumatic, normocephalic Ears: hearing grossly normal bilaterally Resp Effort AND Inspection: normal respiratory effort, able to speak in complete sentences Auscultation: Bilateral: Clear to Auscultation Cardio Rate: regular rate Rhythm: regular rhythm Heart Sounds: S1 normal, S2 normal GI Palpation: soft, no hepatosplenomegaly Neuro General: alert, awake, oriented x3, moves all extremities, CN's II-XI intact bilaterally Extrem General: no clubbing, cyanosis or edema Psych Appearance: grossly normal Mood: congruent mood Affect: normal affect Assessment AND Plan 1. Insomnia G47.00 Plan Chronic and persisting. Predominant problem is maintaining sleep. Trazodone and Ambien not helpful. Sleep hygiene discussed. She has an average of 6 hours of sleep daily and has no difficulty with activities of daily living. Will follow 2. Hypertension I10 Plan Better controlled today. Continue current medications and life style modifications. 3. Anxiety and depression F41.9; F32.9 Plan Stable. Life style stressors have subsided. Open to trying discontinuation in about 3 months. Will follow. This note was generated with [employer] dictation software. It may contain incorrect words, spelling, and punctuation that were not noted in checking the note before signing. 4. Healthcare maintenance Z00.00 Plan Last colonoscopy : 2016. Follows up with her Gynecology at the [facility]. Next due for mammogram and pap smear in December. Plan Detail Follow Up 3 Months Coding Level of Care Code Off vis,est,level 3 Diagnoses Insomnia G47.00 Hypertension I10 Anxiety and depression F41.9; F32.9 Healthcare maintenance Z00.00 09/20/17 0932 <Electronically signed by Sean Salamanca MD> Date Sean Salamanca MD Cosigner Signature: Date (if applicable) CC: SANTANA W/DIFF, AUTOMATED Collected: 08/08/2017 Status: F Source: [place] 6:04 AM [facility] REPOSITORY Order Comment: CBCD,PTH,VITD,RENAL,MIACRE,PROCRE FOR DR HARRELL TYPE CODE TESTS RESULT OUT OF RANGE REFERENCE UNITS LAB L100.1000 4.4-11.0 K/mm3 Normal WBC 10.8 LAB L100.1200 4.2-5.4 M/mm3 Normal RBC 4.79 LAB L100.1300 12.0-15.0 g/dl Normal HGB 14.4 LAB L100.1400 37-47 % Normal HCT 43.5 LAB L100.1500 81-99 fL Normal MCV 90.8 LAB L100.1600 27.0-32.0 pg Normal MCH 30.1 LAB L100.1700 32-36 g/gl Normal MCHC 33.1 LAB L100.1810 11.6-14.6 % Normal RDW CV 13.3 LAB L100.1820 35.1-43.9 fl High RDW SD 44.2 LAB L100.1900 150-450 K/mm3 Normal PLT 333 LAB L100.2000 6.2-12.0 fl Normal MPV 9.1 LAB L100.2100 47-70 % Normal NEUT% 58.1 LAB L100.2200 19-41 % Normal LY% 31.9 LAB L100.2300 0-10 % Normal MONO% 8.9 LAB L100.2400 0-5 % Normal EO% 0.5 LAB L100.2500 0-1 % Normal BASO% 0.3 LAB L100.2550 0.0-0.9 % Normal IM GRAN % 0.300 Result Comment: IG% - Immature Granulocytes (promyelocytes, myelocytes and metamyelocytes) > 1% indicates that a LEFT SHIFT is Present. LAB L100.2620 2.0-7.7 X10 3/uL Normal Absolute Neut 6.3 LAB L100.2720 0.83-4.51 X10 3/ul Normal Absolute Lymph 3.44 Performed By: #### L100.0100 #### [facility] [address], [address] PROTEIN+CREATININE Collected: Status: F Source: [place] RATIO,URINE 08/08/2017 6:04 AM [facility] REPOSITORY Order Comment: CBCD,PTH,VITD,RENAL,MIACRE,PROCRE FOR DR HARRELL TYPE CODE TESTS RESULT OUT OF RANGE REFERENCE UNITS LAB L501.1200 NO RANGE EST. mg/dL Normal UR CREAT 81.20 LAB L501.1930 <11.9 mg/dL Normal 10.4 PROTEIN,UR.R AN. LAB L501.1940 0-200 mg/g CRE Normal PROT:CRE 128 RATIO Performed By: #### L501.0900, L502.0250 #### [facility] [address] [place], [address] MICROALB:CREAT Collected: 08/08/2017 Status: F Source: [place] RATIO,RANDOM UR 6:04 AM [facility] REPOSITORY Order Comment: CBCD,PTH,VITD,RENAL,MIACRE,PROCRE FOR DR HARRELL TYPE CODE TESTS RESULT OUT OF RANGE REFERENCE UNITS LAB L502.0500 NO RANGE EST. mg/L Normal 8.6 MICROALBUMIN ,UR LAB L502.0600 <30 mg/g CRE mg/g CRE Normal 10.6 MALB:CREAT Performed By: #### L501.0900, L502.0250 #### [facility] [address] [place], [place], [address] PTHIN Collected: 08/08/2017 Status: F Source: [place] 6:04 AM [facility] REPOSITORY Order Comment: CBCD,PTH,VITD,RENAL,MIACRE,PROCRE FOR DR HARRELL TYPE CODE TESTS RESULT OUT OF RANGE REFERENCE UNITS LAB L509.1000 18.4-80.1 pg/mL Normal PTHIN 52.5 Result Comment: Please Note: PTH INTACT METHOD AND REFERENCE RANGE CHANGE Effective 2017. Performed By: #### L509.1000 #### [facility] [address] [place], [address] VITAMIN D,25 HYDROXY Collected: 08/08/2017 Status: F Source: [place] 6:04 AM [facility] REPOSITORY Order Comment: CBCD,PTH,VITD,RENAL,MIACRE,PROCRE FOR DR HARRELL TYPE CODE TESTS RESULT OUT OF RANGE REFERENCE UNITS LAB L506.1000 29.95-100.01 ng/mL Normal Vitamin D 48.0 25-OH Result Comment: Vitamin D 25(OH) Status Range Deficiency <20 ng/mL (50nmol/L) Insuffciency 20 - 30 ng/mL (50 - 75 nmol/L) Sufficiency 30 - 100 ng/mL (75 - 250 nmol/L) Toxicity >100 ng/mL (>250 nmol/L) Performed By: #### L506.1000 #### [facility] [address] [place], [address] RENAL PROFILE Collected: 08/08/2017 Status: F Source: [place] 6:03 AM [facility] REPOSITORY Order Comment: CBCD,PTH,VITD,RENAL,MIACRE,PROCRE FOR DR HARRELL TYPE CODE TESTS RESULT OUT OF RANGE REFERENCE UNITS LAB L501.0100 74-106 mg/dL Normal GLU 80 Result Comment: Please note revised GLUCOSE reference range effective 2017. LAB L501.1000 7-18 mg/dL Normal BUN 18 LAB L501.1100 0.55-1.02 mg/dL Normal CREAT,SERUM 0.95 Result Comment: The validity of the calculated GFR AND GFRAA in patients over 70 years has not been determined. Clinical correlation is essential. LAB L501.1110 >60 mL/min Normal EST GFR 66 Result Comment: Non- GFR Calc LAB L501.1115 >60 mL/min Normal EST GFR - AA 79 Result Comment: GFR Calc LAB L501.1300 10-20 RATIO Normal BUN/CRE 18.9 LAB L501.1800 3.2-5.0 g/dL Normal ALB 3.5 LAB L501.2200 8.5-10.1 mg/dL CA Normal 8.6 LAB L501.2300 2.5-4.9 mg/dL Normal PHOS 3.5 LAB L501.5300 136-145 mmol/L NA Normal 137 LAB L501.5600 3.5-5.1 mmol/L K Normal 3.8 LAB L501.5900 98-107 mmol/L CL Normal 104 LAB L501.6100 21.0-32.0 mmol/L Normal CO2 25.0 Performed By: #### L500.3600, L501.9520, L506.0400 #### [facility] [address] [place], [address] THYROID STIM HORMONE Collected: 08/08/2017 Status: F Source: [place] (TSH) 6:03 AM [facility] REPOSITORY Order Comment: CBCD,PTH,VITD,RENAL,MIACRE,PROCRE FOR DR HARRELL TYPE CODE TESTS RESULT OUT OF RANGE REFERENCE UNITS LAB L501.9520 0.358-3.74 uIU/mL Normal TSH 1.99 Performed By: #### L500.3600, L501.9520, L506.0400 #### [facility] [address] [place], [address] T4 FREE DIRECT Collected: 08/08/2017 Status: F Source: [place] 6:03 AM [facility] REPOSITORY Order Comment: CBCD,PTH,VITD,RENAL,MIACRE,PROCRE FOR DR HARRELL TYPE CODE TESTS RESULT OUT OF RANGE REFERENCE UNITS LAB L506.0400 0.76-1.46 ng/dL Normal T4 FREE 1.16 DIRECT Performed By: #### L500.3600, L501.9520, L506.0400 #### [facility] [address] [place], [address] OFFICE VISIT REPORT Observed: 08/05/2017 Status: F Source: [place] 7:22 PM [facility] REPOSITORY [facility] [address] [place] [address] OFFICE VISIT Date of Service: 08/05/17 MR#: [id number] Acct: [id number] Patient: KYM GENAO Rep #: [id number] : 1965 Provider: BETH Zacarias Age/Sex: 52/F Location: [facility] Status: Signed Intake Vital Signs08/05/17 Height 5 ft 5.5 in Intake Visit Reasons: X Chief Complaint: check up Allergies No Known Allergies Allergy (Verified 08/05/17 16:51) Medications Cetirizine HCl [Zyrtec] 10 mg PO DAILY 02/15/17 [History Confirmed 08/05/17] Lisinopril 20 mg PO DAILY 02/15/17 [History Confirmed 08/05/17] ascorbic acid (vitamin C) 1,000 mg tablet 1 g PO Q6H 04/01/17 [History Confirmed 08/05/17] cholecalciferol (vitamin D3) 2,000 unit capsule 2,000 unit PO ONCE 04/01/17 [History Confirmed 08/05/17] multivitamin tablet 1 tab PO QAM 04/01/17 [History Confirmed 07/19/17] rosuvastatin 10 mg tablet 10 mg PO QHS #90 tab 05/09/17 [Rx Confirmed 08/05/17] fluoxetine 10 mg capsule 10 mg PO QPM #90 cap 05/30/17 [Rx Confirmed 08/05/17] fluoxetine 20 mg capsule 20 mg PO QAM #90 cap 05/30/17 [Rx Confirmed 08/05/17] zolpidem 5 mg tablet 5 mg PO HS PRN #30 tab 07/19/17 [Rx Confirmed 08/05/17] azithromycin 250 mg tablet See Label Instructions PO .COMPLEX #6 tab 08/05/17 [Rx] benzonatate 200 mg capsule 200 mg PO TID PRN #21 cap 08/05/17 [Rx] levonorgestrel-ethinyl estradiol 90 mcg-20 mcg tablet 1 tab PO DAILY 08/05/17 [History Confirmed 08/05/17] melatonin 5 mg capsule mg PO 08/05/17 [History Confirmed 08/05/17] PFSH Medical History Hyperlipemia (Chronic) Seasonal allergies (Chronic) Back pain (Acute) History of bloody stools (Acute) Kidney disease (Acute) Sciatica (Acute) HTN (hypertension) (Chronic) Mitral valve prolapse (Chronic) Surgical History History of D AND C (Acute) History of delivery (Acute) Normal colonoscopy (Acute) Family History Father Heart disease aortic aneurysm at 38 Hyperlipemia Hypertension Kidney disease Grandmother Breast cancer Grandmother Cancer uterine Sister Brain aneurysm passed at 27 Social History Smoking Status: Never smoker alcohol intake: current alcohol intake frequency: a few times a week Alcohol type: wine substance use type: does not use what type of physical activity do you participate in: walking frequency: daily HPI HPI Chief Complaint: check up Details: KYM GENAO, is a 52 F who presents to the office today for back cough with some sinus pains and pressure. She states symptoms have been occurring for the past 2-3 days and have been progressively worsening. She states that she does have some nasal symptoms and postnasal drip. She is has tried to take some anti-inflammatories and other conservative measures (delsym) without improvement. The cough she states sounds rattly but she does not get anything up at this time. She denies any fever at this time or shortness of breath. ROS Const Constitutional: Positive for headache(s) (Some minor pressure) and sleep problems (Due to coughing); no chills, fever(s), night sweats, fatigue or malaise Eyes Eyes: No blurry vision or change in vision ENT ENT: Positive for headache(s) (Some minor pressure), nasal congestion, sinus pressure, sinus pain and facial pain; no ear pain, ear discharge, ear pressure, hearing loss, dental pain or difficulty swallowing Resp Respiratory: Positive for cough Cough: Yes non-productive, change in phlegm color (Some yellow discolored phlegm) and wheezing (Occasionally does hear some wheezing at night or after coughing fit); no hemoptysis Cardio Cardiology: Positive for leg pain with exertion; no chest pain at rest, chest pain with exertion, orthopnea, dyspnea on exertion or shortness of breath Gastro GI: No difficulty swallowing Neuro Neurology: Positive for headache(s) (Some minor pressure) Endo Endocrine: No fatigue Aller/Imm Allergy/Immunologic: Positive for wheezing (Occasionally does hear some wheezing at night or after coughing fit) Exam Const General: cooperative, healthy appearing, comfortable, no acute distress, well developed, well groomed, acute distress, not anxious Nutritional Appearance: well nourished, average body habitus Orientation: alert, awake, oriented x3 Limitations: mental status not altered [facility] Ears: hearing grossly normal bilaterally, external ears normal, TM's normal bilaterally, EAC's normal, no periauricular adenopathy Nose: nares normal, external nose normal, nasal discharge clear bilaterally Face and sinus: normal facial exam Mouth: oral mucosae normal, tongue normal, moist mucous membranes, no drooling, lip normal, oropharynx normal Throat: postnasal drainage, uvula midline, tonsils normal Neck Neck: full ROM, supple, no lymphadenopathy Resp Effort AND Inspection: no audible wheezes, not labored, able to speak in complete sentences, normal respiratory effort, cough Quality of cough: actively coughing, no nasal flaring, no respiratory distress, no stridor, not tachypneic Auscultation: Right: Rhonchi (Minor posterior base), Other (Minor rattles posterior base) Cardio Rate: regular rate Rhythm: regular rhythm Assessment AND Plan Problems 1. Sinobronchitis J32.9; J40 Plan Patient has some symptoms and signs of sinus/bronchitis. Discussed that at this time being afebrile this is likely a viral bronchitis. I do note some minor sounds in the right base. I do feel this is likely more coming from the postnasal drip to the head. She states that this is how it always starts and it will move to the chest. Medications New: azithromycin (Zithromax Z-Juan Carlos) take 500 mg today (day 1), then 250 mg for 4 days (days 2-5 ) PO Coding Level of Care Code Off vis,est,level 3 Diagnoses Sinobronchitis J32.9; J40 08/05/171921 <Electronically signed by Celestino CAMPOS> Date Celestino CAMPOS Cosigner Signature: Date (if applicable) CC: INTERNAL MEDICINE Observed: 07/20/2017 Status: F Source: [place] OFFICE VISIT 2:36 PM [facility] [address] [place], [place] [address] OFFICE VISIT Date of Service: 07/19/17 MR#: [id number] Acct: [id number] Name: KYM GENAO Rep #: [id number] : 1965 Provider: Juan F Cordero NP Age/Sex: 52/F Location: [facility] Status: Signed Intake Vital Signs07/19/17 Height 5 ft 6 in 07/19/17 Weight: 188 lb 04/17/18 Body Mass Index (BMI) 30.3 07/19/17 Blood Pressure 140/81 Intake Visit Reasons: 2 M FU OFC R/S FROM 07/05/17 Chief Complaint: check up Is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
== END ==
PROVIDERS: Family Provider Internal Medicine; PCP Internal Medicine; Referring Provider Pediatrics Pediatric Nephrology; Visit Provider Pediatrics Pediatric Nephrology
DX: Q61.3 Polycystic kidney, unspecified (principal)
CPT/HCPCS: 36415; 80076

== ENCOUNTER → 2018-04-14 16:01 | Outpatient (CLI) | payer OTHER, SELFPAY ==
[2018-03-15 16:24] VITALS: BMI 30.9
[2018-04-14 16:55] LABS: Albumin, Serum 3.4 g/dL (3.2-5.0); BUN 19 mg/dL (7-18); BUN/Creat Ratio 20.1 RATIO (10-20); Calcium,Total 8.6 mg/dL (8.5-10.1); Chloride 108 mmol/L (98-107); Creatinine, Serum 0.94 mg/dL (0.55-1.02); EST Glomerular Filtration Rate 66 mL/min (>60); Est Glom Filt Rate - Afr Amer 80 mL/min (>60); Glucose 102 mg/dL (74-106); Phosphorus 4.1 mg/dL (2.5-4.9); Potassium 4.8 mmol/L (3.5-5.1); Sodium Level 140 mmol/L (136-145)
== END ==
PROVIDERS: Family Provider Internal Medicine; PCP Internal Medicine; Referring Provider Pediatrics Pediatric Nephrology; Visit Provider Pediatrics Pediatric Nephrology
DX: Q61.3 Polycystic kidney, unspecified (principal)
CPT/HCPCS: 36415; 80069

== ENCOUNTER → 2018-05-01 16:05 | Outpatient (CLI) | payer OTHER, SELFPAY ==
[2018-04-22 09:05] VITALS: BMI 30.9
[2018-05-01 16:57] LABS: Hematocrit 44.8 % (37-47); Hemoglobin 14.4 g/dl (12.0-15.0); Mean Corp Hgb Conc 32.1 g/gl (32-36); Mean Corpuscular Hgb 29.6 pg (27.0-32.0); Mean Corpuscular Volume 92.2 fL (81-99); Mean Platelet Vol. 9.6 fl (6.2-12.0); Platelet Count 281 K/mm3 (150-450); RBC Distribution Width CV 12.9 % (11.6-14.6); Red Blood Count 4.86 M/mm3 (4.2-5.4); White Blood Count 9.6 K/mm3 (4.4-11.0)
[2018-05-01 17:10] LABS: Scan Indicated on CBC? Y/N NO
[2018-05-01 17:16] LABS: Albumin, Serum 3.6 g/dL (3.2-5.0); BUN 12 mg/dL (7-18); BUN/Creat Ratio 12.6 RATIO (10-20); Calcium,Total 8.6 mg/dL (8.5-10.1); Chloride 108 mmol/L (98-107); Creatinine, Serum 0.96 mg/dL (0.55-1.02); EST Glomerular Filtration Rate 65 mL/min (>60); Est Glom Filt Rate - Afr Amer 79 mL/min (>60); Glucose 69 mg/dL (74-106); Phosphorus 2.7 mg/dL (2.5-4.9); Potassium 3.9 mmol/L (3.5-5.1); Sodium Level 139 mmol/L (136-145)
[2018-05-01 17:23] LABS: Vitamin D,25 Hydroxy 38.2 ng/mL (29.95-100.01)
[2018-05-01 17:34] LABS: Microalbumin,Random Urine < 5.0 mg/L (NO RANGE EST.); Protein, Urine (Random) < 6.0 mg/dL (<11.9)
== END ==
PROVIDERS: Family Provider Internal Medicine; PCP Internal Medicine; Referring Provider Pediatrics Pediatric Nephrology; Visit Provider Pediatrics Pediatric Nephrology
DX: N18.2 Chronic kidney disease, stage 2 (mild) (principal)
CPT/HCPCS: 36415; 80069; 82043; 82306; 82570; 83970; 84156; 85027

== ENCOUNTER → 2018-05-15 16:04 | Outpatient (CLI) | payer OTHER, SELFPAY ==
[2018-04-22 09:05] VITALS: BMI 30.9
[2018-05-15 16:45] LABS: AST(SGOT) 15 U/L (15-37); Alanine Aminotransfer ALT/SGPT 22 U/L (13-56); Albumin, Serum 3.4 g/dL (3.2-5.0); Alkaline Phosphatase 83 U/L (45-117); Bilirubin, Direct 0.07 mg/dL (0.00-0.30); Globulin 3.3 g/dL (2.2-4.2); Protein, Total 6.7 g/dL (6.4-8.2)
== END ==
PROVIDERS: Family Provider Internal Medicine; PCP Internal Medicine; Referring Provider Pediatrics Pediatric Nephrology; Visit Provider Pediatrics Pediatric Nephrology
DX: Q61.3 Polycystic kidney, unspecified (principal)
CPT/HCPCS: 36415; 80076

== ENCOUNTER → 2018-06-12 16:04 | Outpatient (CLI) | payer OTHER, SELFPAY ==
[2018-04-22 09:05] VITALS: BMI 30.9
[2018-06-12 16:52] LABS: AST(SGOT) 23 U/L (15-37); Alanine Aminotransfer ALT/SGPT 23 U/L (13-56); Albumin, Serum 3.3 g/dL (3.2-5.0); Alkaline Phosphatase 79 U/L (45-117); Bilirubin, Direct 0.07 mg/dL (0.00-0.30); Globulin 3.6 g/dL (2.2-4.2); Protein, Total 6.9 g/dL (6.4-8.2)
== END ==
PROVIDERS: Family Provider Internal Medicine; PCP Internal Medicine; Referring Provider Pediatrics Pediatric Nephrology; Visit Provider Pediatrics Pediatric Nephrology
DX: Q61.3 Polycystic kidney, unspecified (principal)
CPT/HCPCS: 36415; 80076

== ENCOUNTER → 2018-07-13 07:23 | Outpatient (CLI) | payer OTHER, SELFPAY ==
[2018-06-22 16:13] VITALS: BMI 33.9
[2018-07-13 08:40] LABS: AST(SGOT) 19 U/L (15-37); Alanine Aminotransfer ALT/SGPT 24 U/L (13-56); Albumin, Serum 3.4 g/dL (3.2-5.0); Alkaline Phosphatase 87 U/L (45-117); Globulin 2.9 g/dL (2.2-4.2); Protein, Total 6.3 g/dL (6.4-8.2)
== END ==
PROVIDERS: Family Provider Internal Medicine; PCP Internal Medicine; Referring Provider Pediatrics Pediatric Nephrology; Visit Provider Pediatrics Pediatric Nephrology
DX: Q61.3 Polycystic kidney, unspecified (principal)
CPT/HCPCS: 36415; 80076

== ENCOUNTER 2018-08-14 16:07 | Outpatient (RCR) | payer OTHER, SELFPAY ==
[2018-06-22 16:13] VITALS: BMI 33.9
[2018-08-14 17:40] LABS: AST(SGOT) 21 U/L (15-37); Alanine Aminotransfer ALT/SGPT 26 U/L (13-56); Albumin, Serum 3.5 g/dL (3.2-5.0); Alkaline Phosphatase 82 U/L (45-117); Bilirubin, Direct 0.09 mg/dL (0.00-0.30); Globulin 2.9 g/dL (2.2-4.2); Protein, Total 6.4 g/dL (6.4-8.2)
== END 2018-09-01 23:59 ==
LOC: LABSPEC 16:07
PROVIDERS: Family Provider Internal Medicine; PCP Internal Medicine; Referring Provider Pediatrics Pediatric Nephrology; Visit Provider Pediatrics Pediatric Nephrology
DX: Q61.3 Polycystic kidney, unspecified (principal)
CPT/HCPCS: 36415; 80076

== ENCOUNTER 2018-09-12 07:48 | Outpatient (RCR) | payer OTHER, SELFPAY ==
[2018-06-22 16:13] VITALS: BMI 33.9
[2018-09-07 08:18] VITALS: BMI 33.9
[2018-09-12 08:57] LABS: AST(SGOT) 14 U/L (15-37); Alanine Aminotransfer ALT/SGPT 31 U/L (13-56); Albumin, Serum 3.3 g/dL (3.2-5.0); Alkaline Phosphatase 71 U/L (45-117); Bilirubin, Direct 0.09 mg/dL (0.00-0.30); Cholesterol 146 mg/dL (200); Globulin 3.3 g/dL (2.2-4.2); High Density Lipoprotein 40 mg/dL; Protein, Total 6.6 g/dL (6.4-8.2); Triglycerides 68 mg/dL; Very Low Density Lipoprotein 14 mg/dL (5-40)
== END 2018-09-12 08:00 | disposition home or self-care (01) ==
LOC: LAB 07:48
PROVIDERS: Family Provider Internal Medicine; PCP Internal Medicine; Referring Provider Pediatrics Pediatric Nephrology; Visit Provider Pediatrics Pediatric Nephrology
DX: Q61.3 Polycystic kidney, unspecified (principal); E78.5 Hyperlipidemia, unspecified
CPT/HCPCS: 36415; 80061; 80076

== ENCOUNTER 2018-10-12 09:53 | Outpatient (RCR) | payer OTHER, SELFPAY ==
[2018-09-29 08:02] VITALS: BMI 34.2
[2018-10-12 11:43] LABS: AST(SGOT) 17 U/L (15-37); Alanine Aminotransfer ALT/SGPT 29 U/L (13-56); Albumin, Serum 3.3 g/dL (3.2-5.0); Alkaline Phosphatase 100 U/L (45-117); Bilirubin, Direct 0.08 mg/dL (0.00-0.30); Globulin 3.6 g/dL (2.2-4.2); Protein, Total 6.9 g/dL (6.4-8.2)
== END 2018-11-01 17:47 | disposition home or self-care (01) ==
LOC: LAB 09:53
PROVIDERS: Family Provider Internal Medicine; PCP Internal Medicine; Referring Provider Pediatrics Pediatric Nephrology; Visit Provider Pediatrics Pediatric Nephrology
DX: Q61.3 Polycystic kidney, unspecified (principal)
CPT/HCPCS: 36415; 80076

== ENCOUNTER → 2018-10-13 13:45 | Outpatient (CLI) | payer OTHER, SELFPAY ==
[2018-09-29 08:02] VITALS: BMI 34.2
--- NOTE | 2018-10-13 13:48 | US_ITS ---
STUDY: RENAL ULTRASOUND - COMPLETE REASON FOR EXAM: Female, 53 years old. Evaluation of polycystic kidneys. TECHNIQUE: Ultrasound evaluation of the kidneys was performed with real-time and static siddiqi-scale imaging. COMPARISON: Prior renal ultrasound of January 17, [address] exam of February 15, 2017 FINDINGS: RIGHT KIDNEY: Normal location of the right kidney, which is normal in size. The right kidney measures 14.2 x 8.7 x 6.7 cm. There is a normal cortex of the right kidney. The renal cortex measures 1.1 cm. Multiple cysts of the right kidney. The largest right renal cysts are 5.5 x 5.3 x 5.2 cm and 4.6 x 3.3 x 3.8 cm. There are no right renal calculi. There is no right hydronephrosis. DISTAL RIGHT URETER: There is non-visualization of the distal right ureter. There is no demonstrated right ureterovesical junction calculus. There is a visualized right ureteral jet. LEFT KIDNEY: Normal location of the left kidney, which is normal in size. The left kidney measures 13.1 x 6.7 x 8.0 cm. There is a normal cortex of the left kidney. The renal cortex measures 1.2 cm. There are multiple cysts of the left kidney. The 2 largest cysts are 4.1 x 4.5 x 4.3 cm and 4.1 x 3.6 x 4.5 cm. There are no left renal calculi. There is no left hydronephrosis. DISTAL LEFT URETER: There is non-visualization of the distal left ureter. There is no demonstrated left ureterovesical junction calculus. There is a visualized left ureteral jet. BLADDER: The distended urinary bladder has a volume of 395 ml. There is a normal wall thickness of the distended urinary bladder. There is no demonstrated mass within the urinary bladder. There are no demonstrated bladder calculi. US/Kidney and Bladder IMPRESSION: Polycystic or multicystic kidneys. The largest cysts are measured as listed above. No substantial changes from prior exam. Electronically Signed: Kaila Tellez MD at 22:51 EDT , Service support ,
== END ==
PROVIDERS: Family Provider Internal Medicine; PCP Internal Medicine; Referring Provider Pediatrics Pediatric Nephrology; Visit Provider Pediatrics Pediatric Nephrology
DX: Q61.3 Polycystic kidney, unspecified (principal)
CPT/HCPCS: 76770

== ENCOUNTER → 2018-10-30 09:17 | Outpatient (CLI) | payer OTHER, SELFPAY ==
[2018-09-29 08:02] VITALS: BMI 34.2
[2018-10-30 09:47] LABS: Absolute Lymphocyte Count 2.48 X10^3/uL (0.83-4.51); Absolute Neutrophil Count 5.2 X10^3/uL (2.0-7.7); Basophil# 0.05 X10^3/uL; Basophil% 0.6 % (0-1); Eosinophil# 0.46 X10^3/uL; Eosinophils% 5.3 % (0-5); Hematocrit 44.4 % (37-47); Hemoglobin 14.5 g/dL (12.0-15.0); Lymphocyte # 2.48 X10^3/ul (4.0); Lymphocyte % 28.5 % (19-41); Mean Corp Hgb Conc 32.7 g/dL (32-36); Mean Corpuscular Hgb 29.6 pg (27.0-32.0); Mean Corpuscular Volume 90.6 fL (81-99); Mean Platelet Vol. 9.4 fl (6.2-12.0); Monocyte# 0.47 X10^3/uL; Monocyte% 5.4 % (0-10); NRBC Flagged by Analyzer 0 % (0-5); Neutrophil # 5.22 X10^3/uL (2.7-7.7); Neutrophil % 59.9 % (47-70); Platelet Count 267 K/mm3 (150-450); RBC Distribution Width CV 12.3 % (11.6-14.6); RBC Distribution Width SD 40.7 fl (35.1-43.9); White Blood Count 8.7 K/mm3 (4.4-11.0)
[2018-10-30 10:10] LABS: Microalbumin,Random Urine < 5.0 mg/L (NO RANGE EST.); Protein, Urine (Random) < 6.0 mg/dL (<11.9)
[2018-10-30 10:13] LABS: Albumin, Serum 3.3 g/dL (3.2-5.0); BUN 13 mg/dL (7-18); BUN/Creat Ratio 11.4 RATIO (10-20); Calcium,Total 8.7 mg/dL (8.5-10.1); Chloride 111 mmol/L (98-107); Creatinine, Serum 1.14 mg/dL (0.55-1.02); EST Glomerular Filtration Rate 53 mL/min (>60); Est Glom Filt Rate - Afr Amer 64 mL/min (>60); Glucose 161 mg/dL (74-106); Phosphorus 2.7 mg/dL (2.5-4.9); Sodium Level 142 mmol/L (136-145)
[2018-10-30 22:04] LABS: Vitamin D,25 Hydroxy 40.5 ng/mL (29.95-100.01)
[2018-10-31 10:09] LABS: PTHIN 21.5 pg/mL (18.4-80.1)
== END ==
PROVIDERS: Family Provider Internal Medicine; PCP Internal Medicine; Referring Provider Pediatrics Pediatric Nephrology; Visit Provider Pediatrics Pediatric Nephrology
DX: Z13.0 Encounter for screening for diseases of the blood and blood-forming organs and certain disorders involving the immune mechanism (principal); N18.2 Chronic kidney disease, stage 2 (mild)
CPT/HCPCS: 36415; 80069; 82043; 82306; 82570; 83970; 84156; 85025

== ENCOUNTER → 2018-11-13 11:27 | Outpatient (CLI) | payer OTHER, SELFPAY ==
[2018-09-29 08:02] VITALS: BMI 34.2
[2018-11-13 13:13] LABS: AST(SGOT) 21 U/L (15-37); Alanine Aminotransfer ALT/SGPT 28 U/L (13-56); Albumin, Serum 3.6 g/dL (3.2-5.0); Alkaline Phosphatase 88 U/L (45-117); Bilirubin, Direct 0.08 mg/dL (0.00-0.30); Globulin 3.9 g/dL (2.2-4.2); Protein, Total 7.5 g/dL (6.4-8.2)
== END ==
PROVIDERS: Family Provider Internal Medicine; PCP Internal Medicine; Referring Provider Pediatrics Pediatric Nephrology; Visit Provider Pediatrics Pediatric Nephrology
DX: Z13.0 Encounter for screening for diseases of the blood and blood-forming organs and certain disorders involving the immune mechanism (principal)
CPT/HCPCS: 36415; 80076

== ENCOUNTER 2018-12-13 16:04 | Outpatient (RCR) | payer OTHER, SELFPAY ==
[2018-09-29 08:02] VITALS: BMI 34.2
[2018-12-13 17:27] LABS: AST(SGOT) 27 U/L (15-37); Alanine Aminotransfer ALT/SGPT 35 U/L (13-56); Albumin, Serum 3.3 g/dL (3.2-5.0); Alkaline Phosphatase 83 U/L (45-117); Bilirubin, Direct 0.07 mg/dL (0.00-0.30); Globulin 3.6 g/dL (2.2-4.2); Protein, Total 6.9 g/dL (6.4-8.2)
== END 2018-12-13 17:00 | disposition home or self-care (01) ==
LOC: LAB 16:04
PROVIDERS: Family Provider Internal Medicine; PCP Internal Medicine; Referring Provider Pediatrics Pediatric Nephrology; Visit Provider Pediatrics Pediatric Nephrology
DX: Q61.3 Polycystic kidney, unspecified (principal)
CPT/HCPCS: 36415; 80076

== ENCOUNTER → 2018-12-26 17:18 | Outpatient (CLI) | payer OTHER, SELFPAY ==
[2018-12-26 16:28] VITALS: BMI 34.2
--- NOTE | 2018-12-26 16:50 | EKG12_ITS ---
Test Reason : CP,SOB Blood Pressure : / mmHG Vent. Rate : 074 BPM Atrial Rate : 074 BPM P-R Int : 138 ms QRS Dur : 076 ms QT Int : 370 ms P-R-T Axes : 042 -02 009 degrees QTc Int : 410 ms Normal sinus rhythm Minimal voltage criteria for LVH, may be normal variant Borderline ECG When compared with ECG of 16-FEB-2017 20:45, No significant change was found Confirmed by FRANCESCA ZIMMERMAN, ASA ([id number]), department editor BETTY DAY ([id number]) on 12/29/2018 10:40:58 A M Referred By: MAGNO Confirmed By:JONATHAN MA MD
--- NOTE | 2018-12-26 17:35 | RAD_ITS ---
STUDY: X-RAY CHEST REASON FOR EXAM: Female, 53 years old. Chest pain TECHNIQUE: Frontal and lateral views COMPARISON: February 15, 2017 FINDINGS: The lungs are clear and expanded. There is no demonstrated pleural abnormality. Normal size heart. Normal mediastinum and garth. Normal visualized pulmonary arteries. Normal visualized aortic arch and descending thoracic aorta. Normal visualized thoracic spine. Normal visualized ribs, clavicles, and shoulders. There is no demonstrated abnormality of the visualized soft tissue structures of the upper abdomen. RAD/Chest PA and Lateral IMPRESSION: Normal x-ray examination of the chest. Electronically Signed: Bernard Peña DO at 21:55 EDT Tel [phone], Service support ,
--- NOTE | 2018-12-26 17:53 | EKG12_ITS ---
Test Reason : CP Blood Pressure : / mmHG Vent. Rate : 083 BPM Atrial Rate : 083 BPM P-R Int : 140 ms QRS Dur : 072 ms QT Int : 362 ms P-R-T Axes : 032 002 005 degrees QTc Int : 425 ms Normal sinus rhythm Minimal voltage criteria for LVH, may be normal variant Borderline ECG Confirmed by DIANN PEREZ ([id number]), manuscript editor BETTY DAY ([id number]) on 01/02/2019 1:20:50 PM Referred By: VIOLETA Confirmed By:DIANN PEREZ
[2018-12-26 18:15] LABS: D-Dimer Quantitative (DVT/PE) 0.95 FEU/ug/m (0.27-0.49)
== END ==
PROVIDERS: Family Provider Internal Medicine; PCP Internal Medicine; Visit Provider Nurse Practitioner Family
DX: R06.00 Dyspnea, unspecified (principal); R07.9 Chest pain, unspecified
CPT/HCPCS: 36415; 71046; 84443; 85379; 93005

== ENCOUNTER 2018-12-26 18:47 | Emergency (ER) | payer OTHER, SELFPAY ==
[2018-12-26 16:28] VITALS: BMI 34.2
[2018-12-26 18:50] VITALS: BP 148/117; PULSE 93; RESP 18; TEMP 36.6; O2SAT 100; BMI 34.2
[2018-12-26 19:39] LABS: Hematocrit 34.1 % (37-47); Hemoglobin 11.2 g/dL (12.0-15.0); Mean Corp Hgb Conc 32.8 g/dL (32-36); Mean Corpuscular Hgb 30.3 pg (27.0-32.0); Mean Corpuscular Volume 92.2 fL (81-99); Mean Platelet Vol. 9.4 fl (6.2-12.0); Platelet Count 207 K/mm3 (150-450); RBC Distribution Width CV 12.1 % (11.6-14.6); RBC Distribution Width SD 40.9 fl (35.1-43.9); White Blood Count 9.7 K/mm3 (4.4-11.0)
--- NOTE | 2018-12-26 19:50 | ED.VIS.GEN ---
History of Present Illness Chief Complaint: Shortness of Breath Informant: Patient, Significant Other Onset: Weeks - Only 1 week Context: Sudden Onset Timing: Continuous Quality: Shortness of breath Location: Respiratory Current Severity: Mild Maximum Severity: Moderate Worsened by: Apparently nothing Relieved by: Nothing Associated Symptoms: No chest pain of any type, no dyspnea on exertion, no orthopnea or PND Narrative: Patient is a 53-year-old woman sent to the emergency department because of shortness of breath and elevated d-dimer. D-dimer is 0.95. Even when corrected for age the d-dimer is elevated. She has no history of PE or DVT. She denies leg pain, swelling discoloration. She has no risk factors for PE or DVT. states she coughs every time she eats. She has never been diagnosed with hiatal hernia or reflux. She denies history of asthma. She denies fever, chills or night sweats. She denies URI symptoms. She denies GI symptoms. She denies black or maroon stool. She denies weight loss or weight gain. She denies dysuria, frequency, urgency or hematuria. She denies heat or cold intolerance. Prior similar symptoms: No Recent Illness/Hospitalization: No - Past Medical History (1) rectosigmoid colitis Status: Acute (2) Anxiety and depression Status: Chronic (3) Chronic cough Status: Chronic (4) Dyslipidemia Status: Chronic (5) Hypertension Status: Chronic (6) Polycystic kidney disease Status: Chronic (7) Seasonal allergies Status: Chronic Past Medical History - Allergies and Home Meds Allergies/Adverse Reactions: Allergies No Known Allergies Allergy (Verified 12/26/18 18:50) Primary Care Physician: Sean Salamanca MD [Primary Care Provider] - Prior records reviewed: Yes Lives: Spouse/ Significant Other Smoking Status: Never smoker Alcohol: Rare Drugs: None - Family History Paternal Family History: Family History (Last Reviewed 09/29/18 @ 08:02 by Daly Vizcarra) Father Heart disease Hyperlipemia Hypertension Kidney disease Grandmother Breast cancer Grandmother Cancer Sister Brain aneurysm Family History: Reports: Renal Disease - Polycystic kidney disease in father and paternal side. Review of Systems General: Denies: Chills, Fever, Sweats Eyes: Denies: Visual changes - bilaterally, Diplopia ENT: Denies: Rhinorrhea, Sore throat Cardiovascular: Denies: Chest pain, Palpitations, Heart racing, -, - Respiratory: Reports: Dyspnea, Cough. Denies: Sputum, Dyspnea on exertion, Orthopnea, Paroxysmal nocturnal dyspnea Gastrointestinal: Denies: Abdominal pain, Nausea, Vomiting, Diarrhea, Melena, Hematochezia Genitourinary: Denies: Dysuria, Hematuria, Frequency Musculoskeletal: Denies: Myalgias, Arthralgias, Back pain, Swelling, Extremity Pain Skin: Denies: Rash, Wounds Neurological: Denies: Headache, Weakness, Numbness Endocrine: Denies: Polyuria, Polydipsia, Heat intolerance, Cold intolerance Hematologic: Denies: Easy bruising, Easy bleeding Allergy: Denies: Uticaria, Swelling of the mouth Physical Exam Vital Signs/Narrative: Vital Signs Temp Pulse Resp BP Pulse Ox 12/26/18 18:50 98 F 93 18 148/117 H 100 Inital Vital Signs reviewed: Yes General: Well nourished, Well developed, Obese, No Acute Distress Head: Normocephalic, Atraumatic Eyes: Perrl, EOMI ENT: Moist mucous membranes, No rhinorrhea Neck: Supple, Nontender, No lymphadenopathy, No JVD Cardiovascular: Regular rate, Regular rhythm, No murmurs, Normal S1, Normal S2 Respiratory: No distress, CTA bilaterally, Chest nontender, - - No egophony or increased vocal fremitus. Abdomen: Soft, Nontender, Nondistended, Normal bowel sounds, No masses Rectal: Deferred Back: Nontender, Normal Inspection Extremities: Nontender, No edema, - - There is no asymmetry, swelling, discoloration, leg vein distention, palpable cords or tenderness along the distribution of the deep venous system. Skin: Normal color, No rash, No Trauma. Negative for: Cyanosis, Diaphoresis, Jaundice Neurological: Alert, Oriented x3, Cranial nerves II-XII grossly intact, Normal Strength, Normal Sensation Psychological: Normal affect, Normal Mood Diagnostic/Tx/Re-eval Chest X-Ray - ED: 2 View, Read by ED Physician, Normal, Heart, Lungs, Mediastinum, Bony Structures, No Acute Disease, - - Herrera chest x-ray was interpreted by me since it has not been interpreted by radiologist. There is no acute findings i.e. infiltrate, effusion or pneumothorax. Impressions Chest CTA 12/26/18 21:40 IMPRESSION: No demonstrated pulmonary embolism or arterial dissection. Probable hepatic and left renal cysts. Electronically Signed: Bernard Peña DO at 22:41 EDT Tel [phone], Service support , 12/26/18 21:40 CTA Chest W/WO Contrast [CT] Stat Laboratory Results 12/26/18 12/26/18 12/26/18 19:25 19:25 19:25 WBC 9.7 RBC 3.70 L Hgb 11.2 L Hct 34.1 L MCV 92.2 MCH 30.3 MCHC 32.8 RDW Std Deviation 40.9 RDW Coeff of Alanis 12.1 Plt Count 207 MPV 9.4 D-Dimer Quant (PE/DVT) Cancelled Sodium 138 Potassium 4.1 Chloride 107 Carbon Dioxide 26.0 Anion Gap 5 BUN 13 Creatinine 1.12 H Estim Creat Clear Calc 55.01 Est GFR (MDRD) Af Amer 66 Est GFR (MDRD) Non-Af 54 L BUN/Creatinine Ratio 11.6 Glucose [address] ~by radiologist reviewed by me reveals no pulmonary pathology or evidence of pulmonary embolus. Blood work is unremarkable. Creatinine was slightly elevated 1.12. GFR was 54 which is slightly below lower end of normal. Patient was informed the etiology of her dyspnea is unknown. - Medical Decision Making With complaint of dyspnea and elevated d-dimer will obtain CTA of the chest to evaluate for PE. Even though she has no risk factors 20% of patients with pulmonary embolus have no risk factors. ED Disposition - Plan for ED Patient: Disposition: Home or Assisted Living Diagnosis: Dyspnea and respiratory abnormalities Instructions: ED Dyspnea Referrals: Sean Salamanca MD [Primary Care Provider] -
[2018-12-26 19:56] LABS: Anion Gap 5 (5-15); BUN 13 mg/dL (7-18); BUN/Creat Ratio 11.6 RATIO (10-20); Calcium,Total 9.1 mg/dL (8.5-10.1); Chloride 107 mmol/L (98-107); Creatinine, Serum 1.12 mg/dL (0.55-1.02); EST Glomerular Filtration Rate 54 mL/min (>60); Est Glom Filt Rate - Afr Amer 66 mL/min (>60); Estimated Creatinine Clearance 55.01 ml/min; Glucose 112 mg/dL (74-106); Potassium 4.1 mmol/L (3.5-5.1); Sodium Level 138 mmol/L (136-145)
[2018-12-26 20:02] VITALS: O2SAT 98
--- NOTE | 2018-12-26 21:40 | CT_ITS ---
STUDY: CTA CHEST REASON FOR EXAM: Female, 53 years old. Elevated d-dimer, shortness of breath RADIATION DOSAGE (If Supplied By Facility): CTDIvol = ( 11.46 ) mGy, DLP = ( 539.71 ) mGycm TECHNIQUE: The examination was performed with the intravenous administration of IV 100mL Isovue-370 100. Post-processing of the angiographic images was performed, with multiplanar reformation and 3D reconstruction. Individualized dose optimization techniques were used for this CT. COMPARISON: None. FINDINGS: Normal enhancement of the main pulmonary artery and right and left pulmonary arteries. Normal enhancement of the bilateral peripheral pulmonary arteries. There is no demonstrated pulmonary embolism. Normal thoracic aorta and visualized great vessels. There is no demonstrated aortic dissection. Normal heart and pericardium. Normal mediastinum. Normal hilar regions. Normal visualized trachea and bronchi. The lungs are well expanded. Probable peripheral scarring in the right lower lobe. Normal pleura. Normal chest wall structures. Normal osseous structures. Multiple hypoattenuated lesions throughout the liver likely cysts. Up to 1.4 cm left renal cysts. Correlate with ultrasound if needed. CT/CTA Chest W/WO Contrast IMPRESSION: No demonstrated pulmonary embolism or arterial dissection. Probable hepatic and left renal cysts. Electronically Signed: Bernard Peña DO at 22:41 EDT Tel [phone], Service support ,
[2018-12-26 23:31] VITALS: RESP 18
== END 2018-12-26 23:32 | disposition home or self-care (01) ==
PROVIDERS: Emergency Provider Emergency Medicine; Family Provider Internal Medicine; PCP Internal Medicine
DX: R06.00 Dyspnea, unspecified (principal); E78.5 Hyperlipidemia, unspecified; F32.9 Major depressive disorder, single episode, unspecified; F41.9 Anxiety disorder, unspecified; I10 Essential (primary) hypertension; Z82.49 Family history of ischemic heart disease and other diseases of the circulatory system; R05 Cough
CPT/HCPCS: 71275; 80048; 85027; 99282; Q9967; A4216

== ENCOUNTER → 2019-01-10 09:51 | Outpatient (CLI) | payer OTHER, SELFPAY ==
[2018-12-26 18:50] VITALS: BMI 34.2
--- NOTE | 2019-01-10 09:53 | ECHOCS_ITS ---
Reason For Study: CHEST PAIN Procedure This was a 2D Doppler, Color Flow transthoracic echocardiogram. The study was technically difficult. Contrast injection was performed. Exam performed in department. Left Ventricle Normal size and thickness. The estimated ejection fraction is 60 %. Stage 1 diastolic dysfunction. No regional wall motion abnormalities noted. Right Ventricle Normal size and thickness. Normal systolic function. Atria The left atrium is mildly enlarged. Normal right atrium. Normal atrial septum. Bubble contrast study negative for right to left interatrial shunt. Mitral Valve The mitral valve is structurally normal. No prolapse or stenosis seen. Trivial mitral valve insufficiency. Tricuspid Valve Normal tricuspid valve. Trivial tricuspid valve insufficiency. Right ventricular systolic pressure estimated to be 22 mmHg. Aortic Valve Normal aortic valve. Trisinus/trileaflet aortic valve. Pulmonic Valve Normal pulmonic valve. Great Vessels Normal aortic root. Normal arch. Normal inferior vena cava. Inferior vena cava collapse with sniff. Pericardium/Pleural No pericardial effusion. Medication 22 gauge I.V. with prn adaptor inserted into right arm. Diluted definity 3.0ml given slow IV push to enhance endocardial definition. Performed a rapid injection of agitated mix of 9 cc saline and 1cc air to assess for atrial septal defect. MMode/2D Measurements & Calculations LVIDd: 4.4 cm IVSd: 0.96 cm Ao root diam: 2.8 cm LVIDs: 3.1 cm LVPWd: 1.0 cm RVDd: 2.8 cm FS: 30.2 % LAV(MOD-bp): 71.0 ml LA A4 area: 20.6 cm2 LA dimension(2D): 3.5 cm LAV(MOD-bp) Indexed: 34.7 ml/m2 LAV(MOD-sp2): 67.5 ml LAV(MOD-sp4): 74.9 ml RA A4 area: 8.8 cm2 Time Measurements MV dec time: 0.18 sec Doppler Measurements & Calculations MV E max abrahan: 81.8 cm/sec Lat Peak E' Abrahan: 8.3 cm/sec Med Peak E' Abrahan: 6.2 cm/sec MV A max abrahan: 108.4 cm/sec E/E' lat: 9.8 E/E' med: 13.2 MV E/A: 0.76 Ao V2 max: 123.8 cm/sec LV V1 max: 93.2 cm/sec PA V2 max: 128.9 cm/sec Ao max P.1 mmHg LV V1 max P.5 mmHg TR max abrahan: 207.8 cm/sec TR max P.3 mmHg Interpretation Summary The estimated ejection fraction is 60 %. Stage 1 diastolic dysfunction. The left atrium is mildly enlarged. Bubble contrast study negative for right to left interatrial shunt. Trivial mitral valve insufficiency. Trivial tricuspid valve insufficiency. Right ventricular systolic pressure estimated to be 22 mmHg. The study was technically difficult. Contrast injection was performed. There is no comparison study available. Ordering Physician: Juan F Cordero Referring Physician: Sean Salamanca Performed By: Porsha Peng, TOMI, RVT
--- NOTE | 2019-01-10 13:10 | STRESSREP ---
Stress Test Report Treadmill exercise EKG report: Resting EKG: Normal sinus rhythm, normal axis, normal intervals, no evidence of previous myocardial infarction. Treadmill EKG: Patient exercised according to Sher protocol for 7 minutes and 0 seconds achieving a maximum workload of 8.50 METS. Resting heart rate was initially 75 beats minute donato to max of 169 beats a minute which are presents 100% of the maximal age picked at heart rate. Resting blood pressure was 120/70, and donato to maximum 150/64. Test was terminated due to calf pain. During exercise the patient's heart rate increased as expected. Patient had subtle upsloping ST segment depression although this did not reach criteria for ischemia. No anginal symptoms noted. Conclusions: Normal, adequate, treadmill EKG: Negative for ischemia by EKG criteria. No anginal symptoms noted. No arrhythmias noted. Appropriate blood pressure response to exercise. No imaging included in this exam. Patient tolerated procedure well.
== END ==
PROVIDERS: Family Provider Internal Medicine; PCP Internal Medicine; Referring Provider Nurse Practitioner Family; Visit Provider Nurse Practitioner Family
DX: R06.00 Dyspnea, unspecified (principal); R07.9 Chest pain, unspecified; I34.1 Nonrheumatic mitral (valve) prolapse
CPT/HCPCS: 93017; 93306; Q9957; A4216; C8929

== ENCOUNTER 2019-01-12 16:03 | Outpatient (RCR) | payer OTHER, SELFPAY ==
[2019-01-12 18:06] LABS: AST(SGOT) 14 U/L (15-37); Alanine Aminotransfer ALT/SGPT 20 U/L (13-56); Albumin, Serum 3.3 g/dL (3.2-5.0); Alkaline Phosphatase 80 U/L (45-117); Bilirubin, Direct 0.06 mg/dL (0.00-0.30); Globulin 3.3 g/dL (2.2-4.2); Protein, Total 6.6 g/dL (6.4-8.2)
== END 2019-01-12 18:00 | disposition home or self-care (01) ==
LOC: LAB 16:03
PROVIDERS: Family Provider Internal Medicine; PCP Internal Medicine; Referring Provider Pediatrics Pediatric Nephrology; Visit Provider Pediatrics Pediatric Nephrology
DX: Q61.3 Polycystic kidney, unspecified (principal)
CPT/HCPCS: 36415; 80076

== ENCOUNTER 2019-02-12 07:22 | Outpatient (RCR) | payer OTHER, SELFPAY ==
[2019-01-16 16:34] VITALS: BMI 34.2
[2019-02-12 08:53] LABS: AST(SGOT) 16 U/L (15-37); Alanine Aminotransfer ALT/SGPT 23 U/L (13-56); Albumin, Serum 3.2 g/dL (3.2-5.0); Alkaline Phosphatase 81 U/L (45-117); Globulin 3.6 g/dL (2.2-4.2); Protein, Total 6.8 g/dL (6.4-8.2)
== END 2019-02-12 18:00 | disposition home or self-care (01) ==
LOC: LAB 07:22
PROVIDERS: Family Provider Internal Medicine; PCP Internal Medicine; Referring Provider Pediatrics Pediatric Nephrology; Visit Provider Pediatrics Pediatric Nephrology
DX: Z13.0 Encounter for screening for diseases of the blood and blood-forming organs and certain disorders involving the immune mechanism (principal)
CPT/HCPCS: 36415; 80076

== ENCOUNTER 2019-03-15 16:04 | Outpatient (RCR) | payer OTHER, SELFPAY ==
[2019-02-27 17:07] VITALS: BMI 34.2
[2019-03-15 17:36] LABS: AST(SGOT) 23 U/L (15-37); Alanine Aminotransfer ALT/SGPT 26 U/L (13-56); Albumin, Serum 3.1 g/dL (3.2-5.0); Alkaline Phosphatase 94 U/L (45-117); Bilirubin, Direct 0.07 mg/dL (0.00-0.30); Globulin 3.8 g/dL (2.2-4.2); Protein, Total 6.9 g/dL (6.4-8.2)
== END 2019-03-15 18:00 | disposition home or self-care (01) ==
LOC: LAB 16:04
PROVIDERS: Family Provider Internal Medicine; PCP Internal Medicine; Referring Provider Pediatrics Pediatric Nephrology; Visit Provider Pediatrics Pediatric Nephrology
DX: Z13.0 Encounter for screening for diseases of the blood and blood-forming organs and certain disorders involving the immune mechanism (principal)
CPT/HCPCS: 36415; 80076

== ENCOUNTER 2019-04-13 16:01 | Outpatient (RCR) | payer OTHER, SELFPAY ==
[2019-02-27 17:07] VITALS: BMI 34.2
[2019-04-13 07:55] VITALS: BMI 34.2
[2019-04-13 18:02] LABS: AST(SGOT) 19 U/L (15-37); Alanine Aminotransfer ALT/SGPT 26 U/L (13-56); Albumin, Serum 3.2 g/dL (3.2-5.0); Alkaline Phosphatase 86 U/L (45-117); Bilirubin, Direct 0.06 mg/dL (0.00-0.30); Globulin 3.6 g/dL (2.2-4.2); Protein, Total 6.8 g/dL (6.4-8.2)
== END 2019-04-13 18:00 | disposition home or self-care (01) ==
LOC: LAB 16:01
PROVIDERS: Family Provider Internal Medicine; PCP Internal Medicine; Referring Provider Pediatrics Pediatric Nephrology; Visit Provider Pediatrics Pediatric Nephrology
DX: Q61.3 Polycystic kidney, unspecified (principal); Z13.0 Encounter for screening for diseases of the blood and blood-forming organs and certain disorders involving the immune mechanism
CPT/HCPCS: 36415; 80076

== ENCOUNTER 2019-05-16 08:27 | Outpatient (RCR) | payer OTHER, SELFPAY ==
[2019-05-16 09:25] LABS: AST(SGOT) 10 U/L (15-37); Alanine Aminotransfer ALT/SGPT 21 U/L (13-56); Albumin, Serum 3.3 g/dL (3.2-5.0); Alkaline Phosphatase 85 U/L (45-117); Bilirubin, Direct 0.08 mg/dL (0.00-0.30); Globulin 3.6 g/dL (2.2-4.2); Protein, Total 6.9 g/dL (6.4-8.2)
== END 2019-05-16 18:00 | disposition home or self-care (01) ==
LOC: LAB 08:27
PROVIDERS: Family Provider Internal Medicine; PCP Internal Medicine; Referring Provider Pediatrics Pediatric Nephrology; Visit Provider Pediatrics Pediatric Nephrology
DX: Q61.3 Polycystic kidney, unspecified (principal)
CPT/HCPCS: 36415; 80076

== ENCOUNTER 2019-06-14 16:13 | Outpatient (RCR) | payer OTHER, SELFPAY ==
[2019-06-14 16:38] LABS: Absolute Lymphocyte Count 3.73 X10^3/uL (0.83-4.51); Absolute Neutrophil Count 6.9 X10^3/uL (2.0-7.7); Basophil# 0.09 X10^3/uL; Basophil% 0.8 % (0-1); Eosinophil# 0.21 X10^3/uL; Eosinophils% 1.8 % (0-5); Hematocrit 41.9 % (37-47); Hemoglobin 13.9 g/dL (12.0-15.0); Lymphocyte # 3.73 X10^3/ul (4.0); Lymphocyte % 31.3 % (19-41); Mean Corp Hgb Conc 33.2 g/dL (32-36); Mean Corpuscular Hgb 29.7 pg (27.0-32.0); Mean Corpuscular Volume 89.5 fL (81-99); Mean Platelet Vol. 9.3 fl (6.2-12.0); Monocyte# 0.97 X10^3/uL; Monocyte% 8.2 % (0-10); NRBC Flagged by Analyzer 0 % (0-5); Neutrophil # 6.85 X10^3/uL (2.7-7.7); Neutrophil % 57.5 % (47-70); Platelet Count 287 K/mm3 (150-450); RBC Distribution Width CV 12.7 % (11.6-14.6); RBC Distribution Width SD 41.3 fl (35.1-43.9); Red Blood Count 4.68 M/mm3 (4.2-5.4); White Blood Count 11.9 K/mm3 (4.4-11.0)
[2019-06-14 17:03] LABS: Microalbumin,Random Urine < 5.0 mg/L (NO RANGE EST.); Protein, Urine (Random) 6.4 mg/dL (<11.9); Protein:Creat Ratio 157 mg/g CRE (0-200)
[2019-06-14 17:44] LABS: AST(SGOT) 12 U/L (15-37); Alanine Aminotransfer ALT/SGPT 21 U/L (13-56); Albumin, Serum 3.4 g/dL (3.2-5.0); Alkaline Phosphatase 86 U/L (45-117); Anion Gap 8 (5-15); BUN 15 mg/dL (7-18); BUN/Creat Ratio 14.2 RATIO (10-20); Bilirubin, Direct 0.11 mg/dL (0.00-0.30); Calcium,Total 8.8 mg/dL (8.5-10.1); Chloride 108 mmol/L (98-107); Creatinine, Serum 1.06 mg/dL (0.55-1.02); EST Glomerular Filtration Rate 58 mL/min (>60); Est Glom Filt Rate - Afr Amer 70 mL/min (>60); Globulin 3.6 g/dL (2.2-4.2); Glucose 91 mg/dL (74-106); Phosphorus 3.7 mg/dL (2.5-4.9); Potassium 4.1 mmol/L (3.5-5.1); Sodium Level 139 mmol/L (136-145)
[2019-06-16 08:26] LABS: Vitamin D,25 Hydroxy 49.7 ng/mL
== END 2019-06-14 18:00 | disposition home or self-care (01) ==
LOC: LAB 16:13
PROVIDERS: Family Provider Internal Medicine; PCP Internal Medicine; Referring Provider Pediatrics Pediatric Nephrology; Visit Provider Pediatrics Pediatric Nephrology
DX: N18.2 Chronic kidney disease, stage 2 (mild) (principal); Z13.0 Encounter for screening for diseases of the blood and blood-forming organs and certain disorders involving the immune mechanism
CPT/HCPCS: 36415; 80048; 80076; 82043; 82306; 82570; 83970; 84100; 84156; 85025

== ENCOUNTER → 2019-08-29 11:46 | Outpatient (CLI) | payer OTHER, SELFPAY ==
[2019-08-29 12:30] LABS: Absolute Lymphocyte Count 3.43 X10^3/uL (0.83-4.51); Absolute Neutrophil Count 6.7 X10^3/uL (2.0-7.7); Basophil# 0.08 X10^3/uL; Basophil% 0.7 % (0-1); Eosinophil# 0.44 X10^3/uL; Eosinophils% 3.8 % (0-5); Hematocrit 44.1 % (37-47); Hemoglobin 14.4 g/dL (12.0-15.0); Lymphocyte # 3.43 X10^3/ul (4.0); Lymphocyte % 29.7 % (19-41); Mean Corp Hgb Conc 32.7 g/dL (32-36); Mean Corpuscular Hgb 29.3 pg (27.0-32.0); Mean Corpuscular Volume 89.6 fL (81-99); Mean Platelet Vol. 9.6 fl (6.2-12.0); Monocyte# 0.92 X10^3/uL; NRBC Flagged by Analyzer 0 % (0-5); Neutrophil # 6.66 X10^3/uL (2.7-7.7); Neutrophil % 57.5 % (47-70); Platelet Count 302 K/mm3 (150-450); RBC Distribution Width CV 12.5 % (11.6-14.6); Red Blood Count 4.92 M/mm3 (4.2-5.4); White Blood Count 11.6 K/mm3 (4.4-11.0)
[2019-08-29 13:08] LABS: Microalbumin,Random Urine 5.1 mg/L (NO RANGE EST.); Microalbumin:Creatinine Ratio 13.8 mg/g CRE (<30 mg/g CRE); Protein, Urine (Random) < 6.0 mg/dL (<11.9)
[2019-08-29 13:19] LABS: Albumin, Serum 3.5 g/dL (3.2-5.0); BUN 15 mg/dL (7-18); BUN/Creat Ratio 12.9 RATIO (10-20); Chloride 108 mmol/L (98-107); Creatinine, Serum 1.16 mg/dL (0.55-1.02); EST Glomerular Filtration Rate 52 mL/min (>60); Est Glom Filt Rate - Afr Amer 63 mL/min (>60); Glucose 82 mg/dL (74-106); Phosphorus 3.6 mg/dL (2.5-4.9); Potassium 4.5 mmol/L (3.5-5.1); Sodium Level 138 mmol/L (136-145)
[2019-08-29 13:20] LABS: Vitamin D,25 Hydroxy 54.4 ng/mL
[2019-08-29 13:21] LABS: PTHIN 60.3 pg/mL (18.4-80.1)
== END ==
PROVIDERS: PCP Internal Medicine; Referring Provider Pediatrics Pediatric Nephrology; Visit Provider Pediatrics Pediatric Nephrology
DX: Z13.0 Encounter for screening for diseases of the blood and blood-forming organs and certain disorders involving the immune mechanism (principal); N18.2 Chronic kidney disease, stage 2 (mild)
CPT/HCPCS: 36415; 80069; 82043; 82306; 82570; 83970; 84156; 85025

== ENCOUNTER → 2019-08-31 09:00 | Outpatient (CLI) | payer OTHER, SELFPAY ==
[2019-08-31 08:35] VITALS: BMI 34.2
[2019-08-31 12:52] LABS: Erythrocyte Sedimentation Rate 28 mm/hr (0-30)
[2019-08-31 13:25] LABS: CRP 9.38 mg/L (0.0-3.0); Rheumatoid Factor < 10.0 IU/mL (<15)
== END ==
PROVIDERS: PCP Internal Medicine; Referring Provider Internal Medicine; Visit Provider Internal Medicine
DX: M19.90 Unspecified osteoarthritis, unspecified site (principal)
CPT/HCPCS: 36415; 85652; 86140; 86431

== ENCOUNTER → 2019-10-03 13:35 | Outpatient (CLI) | payer OTHER, SELFPAY ==
[2019-08-31 08:35] VITALS: BMI 34.2
[2019-10-03 14:42] LABS: AST(SGOT) 17 U/L (15-37); Alanine Aminotransfer ALT/SGPT 24 U/L (13-56); Albumin, Serum 3.3 g/dL (3.2-5.0); Alkaline Phosphatase 97 U/L (45-117); Bilirubin, Direct 0.06 mg/dL (0.00-0.30); Globulin 3.6 g/dL (2.2-4.2); Protein, Total 6.9 g/dL (6.4-8.2)
== END ==
PROVIDERS: PCP Internal Medicine; Referring Provider Pediatrics Pediatric Nephrology; Visit Provider Pediatrics Pediatric Nephrology
DX: Q61.3 Polycystic kidney, unspecified (principal)
CPT/HCPCS: 36415; 80076

== ENCOUNTER → 2020-01-03 15:59 | Outpatient (CLI) | payer OTHER, SELFPAY ==
[2019-08-31 08:35] VITALS: BMI 34.2
[2020-01-03 16:33] LABS: Absolute Lymphocyte Count 3.51 X10^3/uL (0.83-4.51); Absolute Neutrophil Count 6.1 X10^3/uL (2.0-7.7); Basophil# 0.08 X10^3/uL; Basophil% 0.7 % (0-1); Eosinophils% 2.8 % (0-5); Hematocrit 43.2 % (37-47); Lymphocyte # 3.51 X10^3/ul (4.0); Lymphocyte % 32.4 % (19-41); Mean Corp Hgb Conc 32.4 g/dL (32-36); Mean Corpuscular Hgb 28.9 pg (27.0-32.0); Mean Corpuscular Volume 89.1 fL (81-99); Mean Platelet Vol. 9.5 fl (6.2-12.0); Monocyte# 0.78 X10^3/uL; Monocyte% 7.2 % (0-10); NRBC Flagged by Analyzer 0 % (0-5); Neutrophil # 6.13 X10^3/uL (2.7-7.7); Neutrophil % 56.5 % (47-70); Platelet Count 269 K/mm3 (150-450); RBC Distribution Width CV 12.6 % (11.6-14.6); Red Blood Count 4.85 M/mm3 (4.2-5.4); White Blood Count 10.8 K/mm3 (4.4-11.0)
[2020-01-03 17:12] LABS: ALB/GLOB Ratio 0.9 RATIO (0.9-2.4); AST(SGOT) 12 U/L (15-37); Alanine Aminotransfer ALT/SGPT 21 U/L (13-56); Albumin, Serum 3.5 g/dL (3.2-5.0); Alkaline Phosphatase 98 U/L (45-117); Anion Gap 5 (5-15); BUN 17 mg/dL (7-18); BUN/Creat Ratio 14.5 RATIO (10-20); Bilirubin, Direct 0.08 mg/dL (0.00-0.30); Calcium,Total 9.1 mg/dL (8.5-10.1); Chloride 108 mmol/L (98-107); Creatinine, Serum 1.17 mg/dL (0.55-1.02); EST Glomerular Filtration Rate 51 mL/min (>60); Est Glom Filt Rate - Afr Amer 62 mL/min (>60); Globulin 3.8 g/dL (2.2-4.2); Glucose 84 mg/dL (74-106); Protein, Total 7.3 g/dL (6.4-8.2); Sodium Level 138 mmol/L (136-145)
[2020-01-03 18:46] LABS: Microalbumin,Random Urine 7.2 mg/L (NO RANGE EST.); Microalbumin:Creatinine Ratio 20.1 mg/g CRE (<30 mg/g CRE); Protein, Urine (Random) < 6.0 mg/dL (<11.9)
[2020-01-04 08:45] LABS: PTHIN 28.5 pg/mL (18.4-80.1)
[2020-01-04 09:16] LABS: Phosphorus 3.6 mg/dL (2.5-4.9)
== END ==
PROVIDERS: PCP Internal Medicine; Referring Provider Pediatrics Pediatric Nephrology; Visit Provider Pediatrics Pediatric Nephrology
DX: Q61.3 Polycystic kidney, unspecified (principal); Z13.0 Encounter for screening for diseases of the blood and blood-forming organs and certain disorders involving the immune mechanism; N18.2 Chronic kidney disease, stage 2 (mild)
CPT/HCPCS: 36415; 80053; 82043; 82248; 82306; 82570; 83970; 84100; 84156; 85025

== ENCOUNTER → 2020-04-02 12:57 | Outpatient (CLI) | payer OTHER, SELFPAY ==
[2019-08-31 08:35] VITALS: BMI 34.2
[2020-04-02 13:47] LABS: AST(SGOT) 14 U/L (15-37); Alanine Aminotransfer ALT/SGPT 21 U/L (13-56); Albumin, Serum 3.3 g/dL (3.2-5.0); Alkaline Phosphatase 112 U/L (45-117); Bilirubin, Direct 0.08 mg/dL (0.00-0.30); Globulin 3.8 g/dL (2.2-4.2); Protein, Total 7.1 g/dL (6.4-8.2)
== END ==
PROVIDERS: PCP Internal Medicine; Referring Provider Pediatrics Pediatric Nephrology; Visit Provider Pediatrics Pediatric Nephrology
DX: N18.30 Chronic kidney disease, stage 3 unspecified (principal)
CPT/HCPCS: 36415; 80076

== ENCOUNTER → 2020-06-27 09:03 | Outpatient (CLI) | payer OTHER, SELFPAY ==
[2019-08-31 08:35] VITALS: BMI 34.2
[2020-06-27 10:29] LABS: Hematocrit 42.3 % (37-47); Hemoglobin 14.1 g/dL (12.0-15.0); Mean Corp Hgb Conc 33.3 g/dL (32-36); Mean Corpuscular Hgb 29.6 pg (27.0-32.0); Mean Corpuscular Volume 88.9 fL (81-99); Mean Platelet Vol. 9.7 fl (6.2-12.0); Platelet Count 287 K/mm3 (150-450); RBC Distribution Width CV 12.9 % (11.6-14.6); RBC Distribution Width SD 41.3 fl (35.1-43.9); Red Blood Count 4.76 M/mm3 (4.2-5.4); White Blood Count 10.3 K/mm3 (4.4-11.0)
[2020-06-27 10:53] LABS: PTHIN 39.7 pg/mL (18.4-80.1)
[2020-06-27 10:56] LABS: Microalbumin,Random Urine < 5.0 mg/L (NO RANGE EST.); Protein, Urine (Random) < 6.0 mg/dL (<11.9); Vitamin D,25 Hydroxy 40.5 ng/mL
[2020-06-27 11:00] LABS: AST(SGOT) 17 U/L (15-37); Alanine Aminotransfer ALT/SGPT 21 U/L (13-56); Albumin, Serum 3.1 g/dL (3.2-5.0); Alkaline Phosphatase 103 U/L (45-117); Anion Gap 8 (5-15); BUN 14 mg/dL (7-18); Bilirubin, Direct 0.08 mg/dL (0.00-0.30); Calcium,Total 8.8 mg/dL (8.5-10.1); Chloride 109 mmol/L (98-107); Creatinine, Serum 1.17 mg/dL (0.55-1.02); EST Glomerular Filtration Rate 51 mL/min (>60); Est Glom Filt Rate - Afr Amer 62 mL/min (>60); Globulin 4.1 g/dL (2.2-4.2); Glucose 83 mg/dL (74-106); Phosphorus 2.9 mg/dL (2.5-4.9); Potassium 4.5 mmol/L (3.5-5.1); Protein, Total 7.2 g/dL (6.4-8.2); Sodium Level 137 mmol/L (136-145)
== END ==
PROVIDERS: PCP Internal Medicine; Referring Provider Pediatrics Pediatric Nephrology; Visit Provider Pediatrics Pediatric Nephrology
DX: N18.30 Chronic kidney disease, stage 3 unspecified (principal); Q61.3 Polycystic kidney, unspecified
CPT/HCPCS: 36415; 80048; 80076; 82043; 82306; 82570; 83970; 84100; 84156; 85027

== ENCOUNTER → 2020-09-10 10:29 | Outpatient (CLI) | payer OTHER, SELFPAY ==
[2020-09-10 10:01] VITALS: BMI 34.2
[2020-09-10 12:22] LABS: Cholesterol 172 mg/dL (200); High Density Lipoprotein 32 mg/dL; Triglycerides 156 mg/dL; Very Low Density Lipoprotein 31 mg/dL (5-40)
== END ==
PROVIDERS: PCP Internal Medicine; Referring Provider Internal Medicine; Visit Provider Internal Medicine
DX: I10 Essential (primary) hypertension (principal)
CPT/HCPCS: 36415; 80061

== ENCOUNTER → 2020-10-02 08:57 | Outpatient (CLI) | payer OTHER, SELFPAY ==
[2020-09-10 10:01] VITALS: BMI 34.2
[2020-10-02 12:14] LABS: AST(SGOT) 13 U/L (15-37); Alanine Aminotransfer ALT/SGPT 21 U/L (13-56); Albumin, Serum 3.4 g/dL (3.2-5.0); Alkaline Phosphatase 106 U/L (45-117); Globulin 3.5 g/dL (2.2-4.2); Protein, Total 6.9 g/dL (6.4-8.2)
== END ==
PROVIDERS: PCP Internal Medicine; Referring Provider Pediatrics Pediatric Nephrology; Visit Provider Pediatrics Pediatric Nephrology
DX: Q61.3 Polycystic kidney, unspecified (principal)
CPT/HCPCS: 36415; 80076

== ENCOUNTER 2020-10-10 19:13 | Inpatient (IN) | payer OTHER, SELFPAY ==
[2020-09-10 10:01] VITALS: BMI 34.2
[2020-10-10] VITALS (9 sets, daily range): BP systolic 135–175; BP diastolic 60–88; PULSE 91–111; RESP 16–21; TEMP 36.6–37.4; O2SAT 96–99; BMI 35.5; BMI 33.9
--- NOTE | 2020-10-10 19:34 | CT_ITS ---
We are attempting to reach an attending provider to discuss findings. An addendum with communication details will be sent when the communication is complete. STUDY: CT BRAIN WITHOUT CONTRAST REASON FOR EXAM: Female, 55 years old. Neurodeficit acute stroke evaluation RADIATION DOSAGE (If Supplied By Facility): CTDIvol = ( ) mGy, DLP = ( ) mGycm TECHNIQUE: Transaxial CT imaging of the brain was performed without administration of intravenous contrast material. Individualized dose optimization techniques were used for this CT. COMPARISON: No relevant priors. FINDINGS: There is a large acute left posterior temporal and occipital inferior division infarct. There is extensive chronic white matter ischemic change in the deep, periventricular and subcortical distribution, severely advanced for patient''s age. There is no acute intracranial hemorrhage, extra parenchymal fluid collections, hydrocephalus or herniation. CT/STROKE Brain/Head without Cont IMPRESSION: 1. Acute left temporal occipital DEVELOPMENT CONSULTANT distribution infarct. 2. No acute intracranial hemorrhage. 3. Severe chronic white matter ischemic disease. Electronically Signed: Jena Benavides MD at 19:49 EDT Tel , Service support ,
--- NOTE | 2020-10-10 19:34 | EKG12_ITS ---
Test Reason : NEURO Blood Pressure : / mmHG Vent. Rate : 108 BPM Atrial Rate : 108 BPM P-R Int : 190 ms QRS Dur : 070 ms QT Int : 334 ms P-R-T Axes : 044 -04 013 degrees QTc Int : 447 ms Sinus tachycardia Minimal voltage criteria for LVH, may be normal variant Nonspecific ST abnormality Abnormal ECG Confirmed by KAILYN ZIMMERMAN, KAT ([id number]), script editor BETTY DAY ([id number]) on 10/13/2020 1:16:17 PM Referred By: VIOLETA Confirmed By:KAT AVINA MD
--- NOTE | 2020-10-10 19:35 | CT_ITS ---
STUDY: CTA HEAD AND NECK WITH CONTRAST REASON FOR EXAM: Female, 55 years old. Neuro deficit, acute, stroke suspected RADIATION DOSAGE (If Supplied By Facility): CTDIvol = ( 18.04 ) mGy, DLP = ( 721.49 ) mGycm TECHNIQUE: CT angiography was performed with a multi-detector CT scanner. Data acquisition was obtained from the skull base through the vertex following intravenous administration of IV 100mL Isovue-370. MIP images were reconstructed from the axial data set. Post-processing of the angiographic images was performed, with multiplanar reformation and 3D reconstruction. Individualized dose optimization techniques were used for this CT. COMPARISON: No relevant priors. FINDINGS: Aorta has a normal branching pattern. Bilateral common carotids are patent. Bifurcations and proximal internal carotids are normal. There is motion artifact obscuring a short segment of bilateral internal carotid arteries, which are presumed patent as they appear normal distal to the artifact. Bilateral base of skull carotids, middle and anterior cervical arteries and proximal branches are patent. Vertebral arteries arise from the subclavian arteries with the right dominant. Both cervical vertebrals are patent. Intradural vertebral is are patent with the right dominant and left hypoplastic. Basilar is patent. Right PROJECT ASSISTANT is patent with a small posterior commuting artery. Left posterior commuting artery is not well seen. Left P1 is hypoperfused and smaller with occlusion at that P2. Dural venous sinuses are patent. CT/STROKE CTA Head AND Neck W/Con IMPRESSION: Occlusion of the left P1-P2. Patent remainder of the vessels. N.B. : The above Results were Read Back by Jean Benavides MD to Noe Weldon MD , , and understanding confirmed on 10/10/2020 20:09:39 (ET). Electronically Signed: Jena Benavides MD at 20:10 EDT Tel , Service support ,
--- NOTE | 2020-10-10 19:36 | EDS_ITS ---
HPI History of Present Illness Chief Complaint: Dizziness Detail of Chief Complaint: Problems with vision and dizziness and headache Informant: patient and spouse/S.O. Onset/Context/Timing Onset: Today (Approximately 0930) Context: Sudden Onset Timing: Continuous Quality and Location: Positive for - (Headache, problems with vision and partial visual field cut and dizziness) Current Severity: Mild Maximum Severity: Moderate Worsened by: Nothing Relieved by: Nothing Associated Symptoms Associated Symptoms: Positive for Headache; Negative for Vomiting and Chest Pain Narrative Narrative: Patient is a middle-aged woman with history of hypertension hypercholesterolemia who presents with headache that started at approximately 0930. escorted her to the restroom since her out in the park. She used the restroom and then went to the truck. She has been different since that time. She does report headache. She had vertiginous symptoms early this morning which have resolved. She states she has trouble seeing things and using her cell phone because of her impaired vision. She could not be more specific. She came agitated as I asked more her more questions. She was informed as was her it is important ask questions to help determine what the appropriate test and to relay information to the radiologist and neurologist so they know where to look on the CAT scan. Prior similar symptoms: No Recent Illness/Hospitalization: No [facility] Medical History Back pain History of bloody stools HTN (hypertension) Hyperlipemia Kidney disease Mitral valve prolapse Sciatica Seasonal allergies Home Medications lisinopril 20 mg PO DAILY 02/15/17 [History Last Taken 02/15/17 08:00 20 mg] ascorbic acid (vitamin C) 1,000 mg tablet 1 g PO DAILY 04/01/17 [History Last Taken Unknown] cholecalciferol (vitamin D3) 50 mcg (2,000 unit) capsule 2,000 unit PO ONCE 04/01/17 [History Last Taken Unknown] levonorgestrel-ethinyl estradiol 90 mcg-20 mcg (28) tablet 1 tab PO DAILY 08/05/17 [History Last Taken Unknown] tolvaptan (polycys kidney dis) See Rx Instructions PO PER PKG DIR 12/26/18 [History Last Taken Unknown] cetirizine 10 mg tablet 10 mg PO DAILY PRN 08/31/19 [History Last Taken Unknown] eszopiclone 1 mg tablet 1 mg PO QHS PRN #20 tab 09/10/20 [Rx Last Taken Unknown] famotidine 20 mg PO QHS PRN 10/10/20 [History Last Taken Unknown] fluoxetine 20 mg PO DAILY 10/10/20 [History Last Taken Unknown] fluticasone propionate 2 spray INTRANASAL DAILY 10/10/20 [History Last Taken Unknown] rosuvastatin 10 mg PO QHS 10/10/20 [History Last Taken Unknown] Allergy/AdvReac Type Severity Reaction Status Date / Time No Known Allergies Allergy Verified 10/10/20 19:16 Family History Father Heart disease aortic aneurysm at 38 Hyperlipemia Hypertension Kidney disease Grandmother Breast cancer Grandmother Cancer uterine Sister Brain aneurysm passed at 27 Surgical History History of delivery History of D&C Normal colonoscopy Social History Smoking Status: Never smoker alcohol intake: current alcohol intake frequency: a few times a week Alcohol type: wine substance use type: does not use what type of physical activity do you participate in: walking frequency: daily ROS ROS ED Constitutional Constitutional ED: Denies chills, fever(s), subjective, sweats or weakness Eyes Eyes: Reports blurry vision and change in vision; Denies diplopia ENT ENT ED: Denies ear pain, rhinorrhea or sore throat Cardiovascular Cardiovascular: Denies chest pain or palpitations Respiratory/Chest Respiratory/Chest: Denies cough, dyspnea, dyspnea on exertion or sputum Gastrointestinal Gastrointestinal: Reports nausea; Denies abdominal pain, constipation, diarrhea or vomiting Genitourinary Genitourinary ED: Denies dysuria, hematuria or urinary frequency Musculoskeletal Musculoskeletal: Denies arthralgias, back pain, myalgias or neck pain Integumentary Denies rash Neurologic Neurologic: Reports headache(s); Denies paresthesias or weakness Psychiatric Psychiatric: Reports anxiety; Denies depression Endocrine Endocrinology: Denies polydipsia, polyphagia or polyuria Hematologic/Lymphatic Hematologic/Lymphatic: Denies easy bleeding or easy bruising Allergic/Immunologic Allergic/Immunologic ED: Denies urticaria EXAM Physical Exam Const Vital Signs: 10/10/20 19:14 10/10/20 19:56 10/10/20 20:01 Temperature 97.9 F Temperature Source Temporal Pulse Rate 102 H 111 H Respiratory Rate 18 21 H Blood Pressure 156/82 H 175/81 H Blood Pressure Mean 106 112 Pulse Ox 98 97 Oxygen Delivery Method Room Air Room Air Room Air Oxygen Flow Rate (L/min) 2 Positive well nourished and well developed General Appearance ED: well developed and other Anxious and frustrated HEENT Reports moist mucous membranes atraumatic and trauma Eyes PERRL and EOMs intact bilaterally Eyes Narrative: There is no nystagmus. She does have a visual field cut General Eye ED: Negative for pale conjunctiva or scleral icterus Neck no lymphadenopathy, supple and no JVD Chest Wall inspection of chest normal Resp normal respiratory effort and clear to auscultation bilaterally Cardio no murmurs Rate: regular rate Rhythm: regular rhythm Heart Sounds: S1 normal and S2 normal GI normal to inspection, nondistended, normoactive bowel sounds and soft to palpation Back/Spine no CVA tenderness Extremity normal to inspection General Extremety ED: Negative for deformity or tenderness General Extremity: Negative for deformity Neuro oriented x3, CN's II-XII intact bilaterally and no sensory deficits noted Sensorium / Orientation: alert Speech: speech normal Motor Exam: strength 5/5 throughout Psych mental status grossly normal Attitude: agitated Skin Lesions: no lesions Rashes: no rashes STROKE Vital Signs/Narrative: Vital Signs Temp Pulse Resp BP Pulse Ox 10/10/20 19:56 111 H 21 H 175/81 H 97 10/10/20 19:14 97.9 F 102 H 18 156/82 H 98 NIHSS Initial: 1a Level of Consciousness: 1 1b LOC Questions (Score 2 if aphasic/stupor): 0 1c LOC Commands (Only score 1st attempt): 0 2 Best Gaze (If aphasic, use reflexive mvmts.): 0 3 Visual: 1 4 Facial Palsy: 0 5 Motor Arm Right (UN = amputation/fusion): 0 5 Motor Arm Left: 0 6 Motor Leg Right: 0 6 Motor Leg Left: 0 7 Limb ataxia (Only + if out of proportion): 0 8 Sensory (Aphasia/stupor=0 or 1, coma=2): 0 9 Best Language: 0 10 Dysarthria (mute, coma=2, intubated=UN): 0 11 Extinction and Inattention (only scored if +): 0 Total Score: 2 MDM MDM MDM Narrative Medical decision making narrative: Patient presents with symptoms consistent with posterior circulatory stroke. She is not a candidate for TPA. CT of the head was obtained to evaluate for bleed There is no evidence of hemorrhage CTA of the head neck was ordered to evaluate for clot for possible retrieval. Per neurologist at [facility] there is no evidence of large vessel disease. She is not a candidate for TPA. She will need stroke work-up. Plan is to admit to [facility] Lab Data Lab results narrative: Labs are pending the time hospitalist was paged Labs: Laboratory Results - last 24 hr 10/10/20 10/10/20 10/10/20 19:45 19:45 19:50 WBC 14.4 H RBC 5.37 Hgb 15.5 H Hct 47.1 H MCV 87.7 MCH 28.9 MCHC 32.9 RDW Std Deviation 39.8 RDW Coeff of Alanis 12.5 Plt Count 363 MPV 9.5 Immature Gran % (Auto) 0.300 Neut % (Auto) 74.0 H Lymph % (Auto) 19.4 [place] % (Auto) 5.3 Eos % (Auto) 0.3 Baso % (Auto) 0.7 Absolute Neuts (auto) 10.7 H Absolute Lymphs (auto) 2.79 Nucleated RBC % 0 PT 12.9 INR 1.0 APTT 25.0 Sodium 137 Potassium 4.5 Chloride 104 Carbon Dioxide 23.0 Anion Gap 10 BUN 15 Creatinine 1.22 H Estim Creat Clear Calc 49.35 Est GFR (MDRD) Af Amer 59 L Est GFR (MDRD) Non-Af 49 L BUN/Creatinine Ratio 12.3 Glucose 116 H Calcium 9.4 Troponin I High Sens 4.8 Radiography Diagnostic Testing: Radiology Impression Brain CT 10/10/20 19:34 IMPRESSION: 1. Acute left temporal occipital EMAIL PRODUCTION SPECIALIST distribution infarct. 2. No acute intracranial hemorrhage. 3. Severe chronic white matter ischemic disease. Electronically Signed: Jena Benavides MD at 19:49 EDT Tel , Service support , ADDENDUM: 10/10/201955 IMPRESSION: 1. Acute left temporal occipital EMAIL PRODUCTION SPECIALIST distribution infarct. 2. No acute intracranial hemorrhage. 3. Severe chronic white matter ischemic disease. N.B. : The above Results were Read Back by Jena Benavides MD to Noe Weldon MD, and understanding confirmed on 10/10/2020 19:49:23 (ET). Electronically Signed: Jena Benavides MD at 19:49 EDT Tel , Service support , Head/Neck CTA 10/10/20 19:35 IMPRESSION: Occlusion of the left P1-P2. Patent remainder of the vessels. N.B. : The above Results were Read Back by Jena Benavides MD to Noe Weldon MD, MD, and understanding confirmed on 10/10/2020 20:09:39 (ET). Electronically Signed: Jena Benavides MD at 20:10 EDT Tel , Service support , ADDENDUM: 10/10/202016 IMPRESSION: Occlusion of the left P1-P2. Patent remainder of the vessels. N.B. : The above Results were Read Back by Jena Benavides MD to Noe Weldon MD, MD, and understanding confirmed on 10/10/2020 20:09:39 (ET). Electronically Signed: Jena Benavides MD at 20:10 EDT Tel , Service support , CT results are consistent with findings. Patient has a homonymous quadrantanopsia outer upper field defect EKG Initial EKG: Interpretation: Sinus Tachycardia (Ventricular rate 108. VT interval is 190 ms. QRS duration 70 ms. QT duration 3 and 44 ms. [place] is normal. There is nonspecific changes noted in lead V6. This may represent artifact.) Stroke Documentation Questions Stroke Team Activated: Yes Reviewed Inclusion/Exclusion criteria: No IV Alteplase (t-PA) Administered: No No contraindications for IV Alteplase (t-PA) administration.: No Alteplase (t-PA) risks, benefits, alternative discussed: No Critical Care Time Critical care time (excluding procedures): Discussing w/Patient &/or Family/Market News Reporter, Discussing w/Consultants, Arranging Admission or Transfer and - (22 minutes which included obtaining history, physical, documentation, discussion with radiologist and neurologist at [facility], telemedicine) Discharge Plan Dx/Rx/DC Orders Clinical Impression: Occipital stroke Disposition Disposition: Acute Care [facility]
--- NOTE | 2020-10-10 19:55 | ED.RN ---
1919 SPOKE TO PT AND AND ASKED IF PT WAS HAVING OR HAD A HICKS.PT'S STATED THAT SHE DID.C/O VISION CHANGES. 1929 BLOOD SUGAR 94, SPOKE TO DR XIONG AND HE STATED TO BRING PT BACK--{HALLWAY,HAVE NO BEDS} AND HE WOULD EVALUATE.I WAS NOT TO ADITI A STROKE ALERT.PT BROUGHT BACK.
[2020-10-10 19:56] LABS: Absolute Lymphocyte Count 2.79 X10^3/uL (0.83-4.51); Absolute Neutrophil Count 10.7 X10^3/uL (2.0-7.7); Basophil% 0.7 % (0-1); Eosinophil# 0.05 X10^3/uL; Eosinophils% 0.3 % (0-5); Hematocrit 47.1 % (37-47); Hemoglobin 15.5 g/dL (12.0-15.0); Lymphocyte # 2.79 X10^3/ul (0.83-4.51); Lymphocyte % 19.4 % (19-41); Mean Corp Hgb Conc 32.9 g/dL (32-36); Mean Corpuscular Hgb 28.9 pg (27.0-32.0); Mean Corpuscular Volume 87.7 fL (81-99); Mean Platelet Vol. 9.5 fl (6.2-12.0); Monocyte# 0.76 X10^3/uL; Monocyte% 5.3 % (0-10); NRBC Flagged by Analyzer 0 % (0-5); Neutrophil # 10.65 X10^3/uL (2.7-7.7); Platelet Count 363 K/mm3 (150-450); RBC Distribution Width CV 12.5 % (11.6-14.6); RBC Distribution Width SD 39.8 fl (35.1-43.9); Red Blood Count 5.37 M/mm3 (4.2-5.4); White Blood Count 14.4 K/mm3 (4.4-11.0)
--- NOTE | 2020-10-10 20:02 | CM.ED ---
Addendum entered by Annamarie Mohan 10/10/20 21:08: TANNER went back into patients room and provided emotional support for patient and her . Patient was positive for stroke. Patient expressed frustration with the diagnosis and how she felt she was healthy was talking about school, her children and grandchildren. Emotional Support provided. TANNER remains available if needs arise. Annamarie LILLY Original Note: TANNER Note Referral Source: Stroke Alert Referral Reason : Stroke Alert SW provided patient with emotional support as Stroke Alert was called for patient's . 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 inquired if someone could have put some drugs on the port a potty at [facility]. said that they go to [employer] [facility] and walk the dog and then patient went to the restroom and then sat in the truck and did not talk much. was explained the process and what is happening to patient. SW asked if needs anything and he indicated no. SW remains available for support. Annamarie LILLY
--- NOTE | 2020-10-10 20:03 | PCM.HP.STD ---
HPI - General General Date of Admission: 10/10/20 Date of Service: 10/10/20 Chief Complaint: Lightheadedness HPI Narrative ISI GENAO, is a 55 F with a significant history of hypertension and hyperlipidemia who presents with lightheadedness after a walk. She and her walked. Thereafter she went to the bathroom. After going to the bathroom she felt lightheaded. Associated with her symptoms is forgetfulness; lethargy; malaise; visual changes and headache. Her gave her some medication at home which helped with her headache. Patient symptoms started about 11 hours prior to presentation. [facility] Medical History Back pain History of bloody stools HTN (hypertension) Hyperlipemia Kidney disease Mitral valve prolapse Sciatica Seasonal allergies Home Medications lisinopril 20 mg PO DAILY 02/15/17 [History Last Taken 02/15/17 08:00 20 mg] ascorbic acid (vitamin C) 1,000 mg tablet 1 g PO DAILY 04/01/17 [History Last Taken Unknown] cholecalciferol (vitamin D3) 50 mcg (2,000 unit) capsule 2,000 unit PO ONCE 04/01/17 [History Last Taken Unknown] levonorgestrel-ethinyl estradiol 90 mcg-20 mcg (28) tablet 1 tab PO DAILY 08/05/17 [History Last Taken Unknown] tolvaptan (polycys kidney dis) See Rx Instructions PO PER PKG DIR 12/26/18 [History Last Taken Unknown] cetirizine 10 mg tablet 10 mg PO DAILY PRN 08/31/19 [History Last Taken Unknown] eszopiclone 1 mg tablet 1 mg PO QHS PRN #20 tab 09/10/20 [Rx Last Taken Unknown] famotidine 20 mg PO QHS PRN 10/10/20 [History Last Taken Unknown] fluoxetine 20 mg PO DAILY 10/10/20 [History Last Taken Unknown] fluticasone propionate 2 spray INTRANASAL DAILY 10/10/20 [History Last Taken Unknown] rosuvastatin 10 mg PO QHS 10/10/20 [History Last Taken Unknown] Allergy/AdvReac Type Severity Reaction Status Date / Time No Known Allergies Allergy Verified 10/10/20 21:54 Family History Father Heart disease aortic aneurysm at 38 Hyperlipemia Hypertension Kidney disease Grandmother Breast cancer Grandmother Cancer uterine Sister Brain aneurysm passed at 27 Surgical History History of delivery History of D&C Normal colonoscopy Social History Smoking Status: Never smoker alcohol intake: current alcohol intake frequency: a few times a week Alcohol type: wine substance use type: does not use what type of physical activity do you participate in: walking frequency: daily ROS ROS Narrative 12 point review of system is negative except as stated in HPI. Vital Signs Vital Signs Vital Signs: 10/10/20 19:14 10/10/20 19:56 Temperature 97.9 F Temperature Source Temporal Pulse Rate 102 H 111 H Respiratory Rate 18 21 H Blood Pressure 156/82 H 175/81 H Blood Pressure Mean 106 112 Pulse Ox 98 97 Oxygen Delivery Method Room Air Room Air Weight Weight: 99.79 kg Body Mass Index (BMI) 35.5 Physical Exam Narrative Physical exam: General: Well-nourished, well-developed, no acute distress Head: Normocephalic, atraumatic, no tenderness Eyes: PERRLA, EOMI ENT, no trauma, moist mucous membranes, no rhinorrhea Neck: Nontender, full range of motion, no spinal tenderness, deformities, step-off CVS: Regular rate and rhythm Respiratory no acute distress, clear to auscultation bilaterally, chest wall nontender, no wheezing Abdomen: Soft, nontender, nondistended, normal bowel sounds, no masses : Deferred Back: Nontender, no CVA tenderness, no midline spinal tenderness, deformities, step-offs Extremities: Nontender full range of motion, no trauma Skin: Normal color, no trauma, abrasions Neuro: Alert, oriented, cranial nerves II through XII grossly intact. Results Lab / Micro Data Result Diagrams: 10/10/20 19:45 10/10/20 19:45 Labs: Laboratory Results - last 24 hr 10/10/20 19:45 WBC 14.4 H RBC 5.37 Hgb 15.5 H Hct 47.1 H MCV 87.7 MCH 28.9 MCHC 32.9 RDW Std Deviation 39.8 RDW Coeff of Alanis 12.5 Plt Count 363 MPV 9.5 Immature Gran % (Auto) 0.300 Neut % (Auto) 74.0 H Lymph % (Auto) 19.4 [place] % (Auto) 5.3 Eos % (Auto) 0.3 Baso % (Auto) 0.7 Absolute Neuts (auto) 10.7 H Absolute Lymphs (auto) 2.79 Nucleated RBC % [address] 10/10/20 19:34 IMPRESSION: 1. Acute left temporal occipital MANAGER PROCESS distribution infarct. 2. No acute intracranial hemorrhage. 3. Severe chronic white matter ischemic disease. Electronically Signed: Jena Benavides MD at 19:49 EDT Tel , Service support , ADDENDUM: 10/10/201955 IMPRESSION: 1. Acute left temporal occipital MANAGER PROCESS distribution infarct. 2. No acute intracranial hemorrhage. 3. Severe chronic white matter ischemic disease. N.B. : The above Results were Read Back by Jena Benavides MD to Noe Weldon MD, and understanding confirmed on 10/10/2020 19:49:23 (ET). Electronically Signed: Jena Benavides MD at 19:49 EDT Tel , Service support , Assessment & Plan Assessment/Plan (1) Occipital stroke: PLAN: Acute left temporal occipital PC distribution infarct Serial NINDS NIH Scale ordered CT of the head showed left temporal occipital PC distribution infarct. CT head and neck is unremarkable for occlusion of the left P1?P2; telemetry neurologist aware and recommended routine stroke work-up. -Check Hba1c, Lipid level Physical therapy, and occupational therapy to work with patient. N.p.o. until bedside swallow eval. Full dose aspirin and high intensity statin ordered. Lipid profile and A1c ordered. Permissive hypertension. Control blood pressure with labetalol for systolic blood pressure of more than 220 or diastolic blood pressure of more than 120. MRI brain ordered Echocardiogram ordered. Hypertension Blood pressure is not within goal Home blood pressure medication held secondary to permissive hypertension. As needed labetalol and hydralazine ordered as above. Trend blood pressure and adjust blood pressure medications. Leukocytosis Review of Emergency department labs showed elevated white count. Likely reactive. Trend CBC. Depression/anxiety Fluoxetine ordered. Polycystic kidney disease Tolvaptan ordered CKD stage IIIa Review of Emergency department labs showed creatinine of 1.22.; Within baseline. Likely secondary polycystic kidney disease. DVT prophylaxis: subcutaneous Lovenox ordered Charges/Coding Visit Charges OBSV E&M: 33503 Initial observation care L3
--- NOTE | 2020-10-10 20:11 | ED.RN ---
phone call to [facility] over concern for CTA results. Doc to doc at this time
[2020-10-10 20:13] LABS: Prothrombin Time (Protime)PT. 12.9 SECONDS (11.7-14.9)
--- NOTE | 2020-10-10 20:37 | RAD_ITS ---
STUDY: X-RAY CHEST REASON FOR EXAM: Female, 55 years old. Neuro deficit, acute, stroke suspected TECHNIQUE: Frontal view COMPARISON: 12/26/2018 FINDINGS: The lungs are clear and expanded. There is no demonstrated pleural abnormality. Normal size heart. Normal mediastinum and garth. Normal visualized pulmonary arteries. Normal visualized aortic arch and descending thoracic aorta. Normal visualized thoracic spine. Normal visualized ribs, clavicles, and shoulders. There is no demonstrated abnormality of the visualized soft tissue structures of the upper abdomen. RAD/Chest 1 View IMPRESSION: Normal x-ray examination of the chest. Electronically Signed: Bernard Peña DO at 22:28 EDT Tel [phone], Service support ,
[2020-10-10 20:48] LABS: Anion Gap 10 (5-15); BUN 15 mg/dL (7-18); BUN/Creat Ratio 12.3 RATIO (10-20); Calcium,Total 9.4 mg/dL (8.5-10.1); Chloride 104 mmol/L (98-107); Creatinine, Serum 1.22 mg/dL (0.55-1.02); EST Glomerular Filtration Rate 49 mL/min (>60); Est Glom Filt Rate - Afr Amer 59 mL/min (>60); Estimated Creatinine Clearance 49.35 ml/min; Glucose 116 mg/dL (74-106); Potassium 4.5 mmol/L (3.5-5.1); Sodium Level 137 mmol/L (136-145); Troponin-I HS 4.8 pg/mL (3.0-53.7)
--- NOTE | 2020-10-10 21:43 | ECHOCS_ITS ---
Version 3 Reason For Study: Lightheaded Procedure This was a 2D Doppler, Color Flow transthoracic echocardiogram. Exam performed portable in patient room. Left Ventricle Normal LV size. Left ventricular systolic function is normal. The estimated ejection fraction is 60 %. Stage 1 diastolic dysfunction. No regional wall motion abnormalities noted. Right Ventricle Normal RV size. Normal systolic function. Atria Normal left atrium. Normal right atrium. Bubble contrast study negative for right to left interatrial shunt. Mitral Valve Bileaflet diffuse mitral valve thickening. Tricuspid Valve Normal tricuspid valve. Aortic Valve Trisinus/trileaflet aortic valve. Pulmonic Valve Normal pulmonic valve. Great Vessels Normal aortic root. The pulmonary artery is normal size. Normal inferior vena cava. Pericardium/Pleural No pericardial effusion. Medication Performed a rapid injection of agitated mix of 9 cc saline and 1cc air to assess for atrial septal defect. Diluted definity 2ml given slow IV push to enhance endocardial definition. MMode/2D Measurements & Calculations LVIDd: 4.5 cm IVSd: 1.2 cm Ao root diam: 2.9 cm LVIDs: 3.3 cm LVPWd: 1.1 cm RVDd: 2.8 cm FS: 26.7 % LAV(MOD-bp): 43.9 ml LVAd ap4: 25.6 cm2 LVAd ap2: 29.1 cm2 LAV(MOD-bp) Indexed: 21.1 ml/m2 LVLd ap4: 7.5 cm LVLd ap2: 7.7 cm LAV(MOD-sp2): 48.1 ml EDV(MOD-sp4): 73.0 ml EDV(MOD-sp2): 90.1 ml LAV(MOD-sp4): 39.1 ml EDV(sp4-el): 73.9 ml EDV(sp2-el): 93.2 ml LVAs ap4: 14.2 cm2 LVAs ap2: 18.3 cm2 LVLs ap4: 6.5 cm LVLs ap2: 7.0 cm ESV(MOD-sp4): 25.5 ml ESV(MOD-sp2): 40.6 ml ESV(sp4-el): 26.1 ml ESV(sp2-el): 40.2 ml EF(MOD-sp4): 65.0 % EF(MOD-sp2): 55.0 % EF(sp4-el): 64.7 % SV(MOD-sp4): 47.4 ml SV(MOD-sp2): 49.5 ml SV(sp4-el): 47.8 ml LA A4 area: 15.4 cm2 LA dimension(2D): 4.0 cm RA A4 area: 10.7 cm2 Doppler Measurements & Calculations MV E max abrahan: 79.9 cm/sec Lat Peak E' Abrahan: 9.8 cm/sec Med Peak E' Abrahan: 4.7 cm/sec MV A max abrahan: 97.3 cm/sec E/E' lat: 8.2 E/E' med: 16.9 MV E/A: 0.82 LV V1 max: 112.2 cm/sec LV V1 max P.0 mmHg ECHO/Echo Complete W/ Contrast Interpretation Summary Normal LV size. Left ventricular systolic function is normal. The estimated ejection fraction is 60 %. Stage 1 diastolic dysfunction. Bubble contrast study negative for right to left interatrial shunt. Bileaflet diffuse mitral valve thickening. Ordering Physician: Damon Gutierrez Referring Physician: Sean Salamanca Performed By: Aleja Vazquez RDCS
[2020-10-10] MEDS: Atorvastatin Calcium 80 MG Tablet PO (22:16)
[2020-10-11] VITALS (10 sets, daily range): BP systolic 141–158; BP diastolic 53–77; PULSE 70–85; RESP 14–18; TEMP 36.3–36.9; O2SAT 96–98; BMI 33.9
[2020-10-11] MEDS: Acetaminophen 325 MG Tablet 650 MG PO ×2 (03:36→09:32)
[2020-10-11 07:48] LABS: Hemoglobin A1c 5.4 % (3.8-5.6)
[2020-10-11 07:51] LABS: Cholesterol 170 mg/dL (200); High Density Lipoprotein 33 mg/dL; Triglycerides 154 mg/dL; Very Low Density Lipoprotein 31 mg/dL (5-40)
[2020-10-11 08:06] LABS: Absolute Lymphocyte Count 2.74 X10^3/uL (0.83-4.51); Absolute Neutrophil Count 7.7 X10^3/uL (2.0-7.7); Basophil# 0.06 X10^3/uL; Basophil% 0.5 % (0-1); Eosinophil# 0.17 X10^3/uL; Eosinophils% 1.5 % (0-5); Hematocrit 45.1 % (37-47); Hemoglobin 14.8 g/dL (12.0-15.0); Lymphocyte # 2.74 X10^3/ul (0.83-4.51); Lymphocyte % 23.8 % (19-41); Mean Corp Hgb Conc 32.8 g/dL (32-36); Mean Corpuscular Hgb 28.9 pg (27.0-32.0); Mean Corpuscular Volume 88.1 fL (81-99); Mean Platelet Vol. 9.4 fl (6.2-12.0); Monocyte% 6.9 % (0-10); NRBC Flagged by Analyzer 0 % (0-5); Neutrophil # 7.73 X10^3/uL (2.7-7.7); Platelet Count 306 K/mm3 (150-450); RBC Distribution Width CV 12.6 % (11.6-14.6); RBC Distribution Width SD 41.1 fl (35.1-43.9); Red Blood Count 5.12 M/mm3 (4.2-5.4); White Blood Count 11.5 K/mm3 (4.4-11.0)
--- NOTE | 2020-10-11 08:56 | TELEMED_ITS ---
[facility] Tele[facility] has confirmed receipt of a request for visit. This document confirms receipt of the order initiating the consult. To find the results of the consultation, please view the patient's reports for the scanned Telemed Consult.
[2020-10-11] MEDS: Ascorbic Acid 500 MG Tablet 1000 MG PO (09:34)
[2020-10-11] MEDS: FLUoxetine 20 MG Capsule PO (09:34)
[2020-10-11] MEDS: Fluticasone 0.05% 1 SPRAY NASAL.SRY 2 SPRAY NASAL (09:34)
[2020-10-11] MEDS: Cholecalciferol (VIT D3) 25 MCG TABLET (1,000 UNITS) 50 MCG PO (09:34)
[2020-10-11] MEDS: Aspirin 325 MG Tablet PO (09:38)
--- NOTE | 2020-10-11 09:40 | CASEMGMT ---
RN CM Face to Face with patient for initial transition planning/care coordination assessment. RN CM introduced self and role at [facility]. Patient sitting in chair, alert and oriented. Patient willing to participate in assessment and is able to answer all questions appropriately. Care providers, pharmacy, and demographics verified. Patient wishes to discharge home, denies need for home health at this time. Patient states she has no further needs or concerns at this time. CM to follow for discharge planning needs that may arise. PCP: Cheikh Specialists: Drivability Technician Bryce HOWE Preferred Pharmacy: [facility] Insurance: MMO Prescription Benefit: yes Living Will/HPOA: yes Jamel Ashraf LNOK: Living Arrangements: Patient lives with in a 2 story home, patient is able to ambulate stairs and is independent at home. Transportation: self, DME/HHC: Patient denies previous HHC or DME Disposition Plan: Patient to discharge home with family support and follow-up plans in place. Ingrid MEZA, RN, CM
--- NOTE | 2020-10-11 10:00 | MRI_ITS ---
STUDY: MRI BRAIN WITHOUT CONTRAST REASON FOR EXAM: Female, 55 years old. Stroke evaluation TECHNIQUE: Standardized multiplanar fat and water weighted pulse sequences were obtained. COMPARISON: 10 October 2020 FINDINGS: Appearance is stable since prior. There is moderate extent ASSET PROTECTION GREETER territory infarct involving posterior hippocampus of the temporal lobe and left sacral inferior division. There is mild local mass effect without midline shift. There are no extra fluid collections, hydrocephalus or herniation. There is moderate severity chronic white matter ischemic change. MRI/Brain without Contrast IMPRESSION: 1. Left ASSET PROTECTION GREETER territory acute moderate extent infarct. 2. Moderately severe chronic white matter ischemic disease. Electronically Signed: Jena Benavides MD at 16:22 EDT Tel , Service support ,
--- NOTE | 2020-10-11 13:04 | PCM.DC.SUM ---
Providers Date of Admission: 10/10/20 Primary Care Physician: Dr. Sean Salamanca MD Reason For Visit: CVA Diagnosis Discharge Diagnosis (1) Occipital stroke: Status: Acute Code(s): I63.9 - Cerebral infarction, unspecified Medications at Discharge Home Medications lisinopril 20 mg PO DAILY 02/15/17 ascorbic acid (vitamin C) 1,000 mg tablet 1 g PO DAILY 04/01/17 cholecalciferol (vitamin D3) 50 mcg (2,000 unit) capsule 2,000 unit PO ONCE 04/01/17 levonorgestrel-ethinyl estradiol 90 mcg-20 mcg (28) tablet 1 tab PO DAILY 08/05/17 tolvaptan (polycys kidney dis) See Rx Instructions PO PER PKG DIR 12/26/18 cetirizine 10 mg tablet 10 mg PO DAILY PRN 08/31/19 eszopiclone 1 mg tablet 1 mg PO QHS PRN #20 tab 09/10/20 famotidine 20 mg PO QHS PRN 10/10/20 fluoxetine 20 mg PO DAILY 10/10/20 fluticasone propionate 2 spray INTRANASAL DAILY 10/10/20 rosuvastatin 10 mg PO QHS 10/10/20 Hospital Course Summary of Care Provided Minutes Spent on Discharge: 35 Hospital Course: Disposition: PT/OT eval ordered and no home health care needs or additional therapy was identified. Patient to be discharged home. 1) acute CVA SOC teleneurology service consulted: Brain MRI demonstrated. Echocardiogram demonstrated normal LV size and systolic function, an estimated EF of 60% and stage I diastolic dysfunction. Head and neck CT-A demonstrated occlusion of the left P1-P2. Plan; initiate aspirin 81 mg p.o. daily at discharge, initiate atorvastatin 40 mg p.o. daily at discharge, follow-up with primary care provider within the next 2 weeks. 2) HTN Stable, continue home hypertensive regimen. 3) leukocytosis Observed on CBC obtained in the ED, likely reactive. Patient's vital signs are stable patient is afebrile satting at 98% on room air. 4) depression/anxiety Continue fluoxetine. 5) PCKD Continue tolvaptan. 6) CKD stage III Stable, creatinine is at baseline. 7) GERD Continue famotidine. Patient seen by Raulito Urbina PA-C, under the supervision of Dr. Haddad. Physical Exam Narrative Patient is a 55-year-old female comfortably resting in a chair, alert and oriented x3. Denies chest pain, shortness of breath, palpitations, hemoptysis, sputum production, fever, chills, N/V/D. Const alert, oriented x3 and no apparent distress HEENT normocephalic, head/scalp atraumatic and hearing grossly normal bilaterally Eyes Eyes Narrative: Patient endorses vision changes in the right eye and reports difficulty reading. Neck no lymphadenopathy, supple and no JVD Resp normal respiratory effort, no retractions, no use of accessory muscles and clear to auscultation bilaterally Cardio regular rate, regular rhythm, no murmurs and no JVD GI normal to inspection, nondistended, normoactive bowel sounds, soft to palpation and non-tender Extremity normal to inspection, full ROM and no clubbing, cyanosis or edema Skin no rashes or lesions noted, no wounds and skin turgor normal Neuro CN's II-XII intact bilaterally Psych Mood & Affect: anxious Weight / BMI Weight Weight: 210 lb 1.608 oz Body Mass Index (BMI) 33.9 ABG / Lab / Microbiology Data Result Diagrams: 10/11/20 06:42 10/10/20 19:45 Laboratory: Laboratory Results - last 24 hr 10/10/20 10/10/20 10/10/20 19:45 19:45 19:50 WBC 14.4 H RBC 5.37 Hgb 15.5 H Hct 47.1 H MCV 87.7 MCH 28.9 MCHC 32.9 RDW Std Deviation 39.8 RDW Coeff of Alanis 12.5 Plt Count 363 MPV 9.5 Immature Gran % (Auto) 0.300 Neut % (Auto) 74.0 H Lymph % (Auto) 19.4 [place] % (Auto) 5.3 Eos % (Auto) 0.3 Baso % (Auto) 0.7 Absolute Neuts (auto) 10.7 H Absolute Lymphs (auto) 2.79 Nucleated RBC % 0 PT 12.9 INR 1.0 APTT 25.0 Sodium 137 Potassium 4.5 Chloride 104 Carbon Dioxide 23.0 Anion Gap 10 BUN 15 Creatinine 1.22 H Estim Creat Clear Calc 49.35 Est GFR (MDRD) Af Amer 59 L Est GFR (MDRD) Non-Af 49 L BUN/Creatinine Ratio 12.3 Glucose 116 H Hemoglobin A1c Calcium 9.4 Troponin I High Sens 4.8 Triglycerides Cholesterol LDL Cholesterol VLDL Cholesterol HDL Cholesterol 10/11/20 10/11/20 10/11/20 06:40 06:40 06:42 WBC 11.5 H RBC 5.12 Hgb 14.8 Hct 45.1 MCV 88.1 MCH 28.9 MCHC 32.8 RDW Std Deviation 41.1 RDW Coeff of Alanis 12.6 Plt Count 306 MPV 9.4 Immature Gran % (Auto) 0.300 Neut % (Auto) 67.0 Lymph % (Auto) 23.8 [place] % (Auto) 6.9 Eos % (Auto) 1.5 Baso % (Auto) 0.5 Absolute Neuts (auto) 7.7 Absolute Lymphs (auto) 2.74 Nucleated RBC % 0 PT INR APTT Sodium Potassium Chloride Carbon Dioxide Anion Gap BUN Creatinine Estim Creat Clear Calc Est GFR (MDRD) Af Amer Est GFR (MDRD) Non-Af BUN/Creatinine Ratio Glucose Hemoglobin A1c 5.4 Calcium Troponin I High Sens Triglycerides 154 Cholesterol 170 LDL Cholesterol 106 VLDL Cholesterol 31 HDL Cholesterol 33 L Radiography Diagnostic Testing: Radiology Impression Brain CT 10/10/20 19:34 IMPRESSION: 1. 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 2. No acute intracranial hemorrhage. 3. Severe chronic white matter ischemic disease. Electronically Signed: Jena Benavides MD at 19:49 EDT Tel , Service support , ADDENDUM: 10/10/201955 IMPRESSION: 1. 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 2. No acute intracranial hemorrhage. 3. Severe chronic white matter ischemic disease. N.B. : The above Results were Read Back by Jena Benavides MD to Noe Weldon MD, and understanding confirmed on 10/10/2020 19:49:23 (ET). Electronically Signed: Jena Benavides MD at 19:49 EDT Tel , Service support , Head/Neck CTA 10/10/20 19:35 IMPRESSION: Occlusion of the left P1-P2. Patent remainder of the vessels. N.B. : The above Results were Read Back by Jena Benavides MD to Noe Weldon MD, MD, and understanding confirmed on 10/10/2020 20:09:39 (ET). Electronically Signed: Jena Benavides MD at 20:10 EDT Tel , Service support , ADDENDUM: 10/10/202016 IMPRESSION: Occlusion of the left P1-P2. Patent remainder of the vessels. N.B. : The above Results were Read Back by Jena Benavides MD to Noe Weldon MD, MD, and understanding confirmed on 10/10/2020 20:09:39 (ET). Electronically Signed: Jena Benavides MD at 20:10 EDT Tel , Service support , Chest X-Ray 10/10/20 20:37 IMPRESSION: Normal x-ray examination of the chest. Electronically Signed: Bernard Peña DO at 22:28 EDT Tel [phone], Service support , Echocardiogram 10/10/20 21:43 Interpretation Summary Normal LV size. Left ventricular systolic function is normal. The estimated ejection fraction is 60 %. Stage 1 diastolic dysfunction. Bubble contrast study negative for right to left interatrial shunt. Bileaflet diffuse mitral valve thickening. Ordering Physician: Damon Gutierrez Referring Physician: Sean Salamanca Performed By: Aleja Vazquez RDCS Discharge Plan Admission Admit Date/Time: 10/10/20 21:43 Attending Provider: Brian Spencer Primary Care Provider: Sean Salamanca Discharge Orders/Prescriptions Prescriptions: No Action cholecalciferol (vitamin D3) 2,000 unit capsule 2,000 unit PO ONCE RF: 0 ascorbic acid (vitamin C) 1,000 mg tablet 1 g PO DAILY RF: 0 cetirizine [Zyrtec] 10 mg tablet 10 mg PO DAILY PRN (Reason: Allergy Symptoms) RF: 0 Jynarque 60 mg (AM)/ 30 mg (PM) tablets, sequential See Rx Instructions PO PER PKG DIR RF: 0 eszopiclone [Lunesta] 1 mg tablet 1 mg PO QHS PRN (Reason: insomnia) Qty: 20 RF: 0 lisinopril 20 tablet 20 mg PO DAILY RF: 0 levonorgestrel-ethinyl estrad 90-20 mcg tablet 1 tab PO DAILY RF: 0 famotidine 20 mg tablet 20 mg PO QHS PRN (Reason: Acid Reflux) RF: 0 fluoxetine 20 mg capsule 20 mg PO DAILY RF: 0 fluticasone propionate 50 mcg/actuation spray,suspension 2 spray INTRANASAL DAILY RF: 0 rosuvastatin 10 mg tablet 10 mg PO QHS RF: 0 Referrals / Follow Up: Sean Salamanca MD [Primary Care Provider] -
--- NOTE | 2020-10-11 14:39 | PCM.PN.HOSP ---
Documented by User: Raulito CAMPOS 10/11/20 14:45 Subjective Subjective Patient is a 55-year-old female comfortably resting in a chair, alert and orient x3. Patient does endorse vision changes in her left eye and reports difficulty reading. Denies chest pain, shortness of breath, palpitations, hemoptysis, sputum production, fever, chills, N/V/D. Objective Data Objective Data Vital Signs: Vital Signs Temp Pulse Resp BP Pulse Ox 97.8 F 76 14 155/67 H 98 10/11/20 09:21 10/11/20 09:21 10/11/20 09:21 10/11/20 09:21 10/11/20 09:21 Oxygen Flow Rate (L/min) 2 Oxygen Delivery Method Room Air Weight: 210 lb 1.608 oz Body Mass Index (BMI) 33.9 Intake & Output: Intake and Output for Last 24 Hours 10/09/20 10/10/20 10/11/20 23:59 23:59 23:59 Intake Total 100 / 100 Balance 100 / 100 Lab / Micro Data Result Diagrams: 10/11/20 06:42 10/10/20 19:45 Labs: Laboratory Results - last 24 hr 10/10/20 10/10/20 10/10/20 19:45 19:45 19:50 WBC 14.4 H RBC 5.37 Hgb 15.5 H Hct 47.1 H MCV 87.7 MCH 28.9 MCHC 32.9 RDW Std Deviation 39.8 RDW Coeff of Alanis 12.5 Plt Count 363 MPV 9.5 Immature Gran % (Auto) 0.300 Neut % (Auto) 74.0 H Lymph % (Auto) 19.4 [place] % (Auto) 5.3 Eos % (Auto) 0.3 Baso % (Auto) 0.7 Absolute Neuts (auto) 10.7 H Absolute Lymphs (auto) 2.79 Nucleated RBC % 0 PT 12.9 INR 1.0 APTT 25.0 Sodium 137 Potassium 4.5 Chloride 104 Carbon Dioxide 23.0 Anion Gap 10 BUN 15 Creatinine 1.22 H Estim Creat Clear Calc 49.35 Est GFR (MDRD) Af Amer 59 L Est GFR (MDRD) Non-Af 49 L BUN/Creatinine Ratio 12.3 Glucose 116 H Hemoglobin A1c Calcium 9.4 Troponin I High Sens 4.8 Triglycerides Cholesterol LDL Cholesterol VLDL Cholesterol HDL Cholesterol 10/11/20 10/11/20 10/11/20 06:40 06:40 06:42 WBC 11.5 H RBC 5.12 Hgb 14.8 Hct 45.1 MCV 88.1 MCH 28.9 MCHC 32.8 RDW Std Deviation 41.1 RDW Coeff of Alanis 12.6 Plt Count 306 MPV 9.4 Immature Gran % (Auto) 0.300 Neut % (Auto) 67.0 Lymph % (Auto) 23.8 [place] % (Auto) 6.9 Eos % (Auto) 1.5 Baso % (Auto) 0.5 Absolute Neuts (auto) 7.7 Absolute Lymphs (auto) 2.74 Nucleated RBC % 0 PT INR APTT Sodium Potassium Chloride Carbon Dioxide Anion Gap BUN Creatinine Estim Creat Clear Calc Est GFR (MDRD) Af Amer Est GFR (MDRD) Non-Af BUN/Creatinine Ratio Glucose Hemoglobin A1c 5.4 Calcium Troponin I High Sens Triglycerides 154 Cholesterol 170 LDL Cholesterol 106 VLDL Cholesterol 31 HDL Cholesterol 33 L Radiography Diagnostic Testing: Radiology Impression Brain CT 10/10/20 19:34 IMPRESSION: 1. 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 2. No acute intracranial hemorrhage. 3. Severe chronic white matter ischemic disease. Electronically Signed: Jena Benavides MD at 19:49 EDT Tel , Service support , ADDENDUM: 10/10/201955 IMPRESSION: 1. 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 2. No acute intracranial hemorrhage. 3. Severe chronic white matter ischemic disease. N.B. : The above Results were Read Back by Jena Benavides MD to Noe Weldon MD, and understanding confirmed on 10/10/2020 19:49:23 (ET). Electronically Signed: Jena Benavides MD at 19:49 EDT Tel , Service support , Head/Neck CTA 10/10/20 19:35 IMPRESSION: Occlusion of the left P1-P2. Patent remainder of the vessels. N.B. : The above Results were Read Back by Jena Benavides MD to Noe Weldon MD, MD, and understanding confirmed on 10/10/2020 20:09:39 (ET). Electronically Signed: Jena Benavides MD at 20:10 EDT Tel , Service support , ADDENDUM: 10/10/202016 IMPRESSION: Occlusion of the left P1-P2. Patent remainder of the vessels. N.B. : The above Results were Read Back by Jena Benavides MD to Noe Weldon MD, MD, and understanding confirmed on 10/10/2020 20:09:39 (ET). Electronically Signed: Jena Benavides MD at 20:10 EDT Tel , Service support , Chest X-Ray 10/10/20 20:37 IMPRESSION: Normal x-ray examination of the chest. Electronically Signed: Bernard Peña DO at 22:28 EDT Tel [phone], Service support , Echocardiogram 10/10/20 21:43 Interpretation Summary Normal LV size. Left ventricular systolic function is normal. The estimated ejection fraction is 60 %. Stage 1 diastolic dysfunction. Bubble contrast study negative for right to left interatrial shunt. Bileaflet diffuse mitral valve thickening. Ordering Physician: Damon Gutierrez Referring Physician: Sean Salamanca Performed By: Aleja Vazquez RDCS Physical Exam Const alert, oriented x3 and no apparent distress HEENT head/scalp atraumatic and moist oral mucous membranes Head and Scalp: normocephalic Eyes EOMs intact bilaterally and conjunctivae normal Eyes Narrative: Patient reports vision changes in her left eye and reports not being able to read or see faces very clearly. Neck no lymphadenopathy, supple and no JVD Resp normal respiratory effort, no retractions and no use of accessory muscles Cardio regular rate, regular rhythm, no murmurs and no JVD GI normal to inspection, nondistended, normoactive bowel sounds, soft to palpation and non-tender Extremity normal to inspection, full ROM and no clubbing, cyanosis or edema Skin no rashes or lesions noted, no wounds, skin turgor normal and no jaundice Neuro Neuro Narrative: See eyes for vision changes, no other focal neuro deficits reported or seen. Psych Mood & Affect: anxious Assessment & Plan Assessment/Plan (1) Occipital stroke: PLAN: Day 2: See subjective. Discharge plan: No home health care needs or additional therapies identified, patient to be discharged home. 1) acute CVA Echocardiogram demonstrated normal LV size and systolic function, an estimated EF of 60% and stage I diastolic dysfunction. Head and neck CT-A demonstrated occlusion of the left P1-P2. Brain CT demonstrated acute left temporal occipital DOOR MANAGER infarct and chronic white matter ischemic changes. Plan; MRI ordered/pending, SOC teleneurology consult ordered/pending, continue aspirin, statin, possible discharge home tomorrow. 2) HTN Stable, labetalol and hydralazine as needed. 3) leukocytosis Observed on CBC obtained in the ED, likely reactive. Patient's vital signs are stable patient is afebrile satting at 98% on room air. 4) depression/anxiety Continue fluoxetine. 5) PCKD Continue tolvaptan. 6) CKD stage III Stable, creatinine is at baseline. 7) GERD Continue famotidine. Patient seen by Raulito Urbina PA-C, under the supervision of Dr. Haddad. Documented by User: Dr. Brian Spencer MD 10/11/20 16:25 Objective Data Lab / Micro Data Result Diagrams: 10/11/20 06:42 10/10/20 19:45 Charges/Coding Addendum Addendum: Dr. Spencer: I personally reviewed the chart and examined the patient, and agree with the above findings. 55-year-old female presents to the hospital yesterday with signs of a stroke. She had been walking with her when she felt unsteady and unwell. She has some dizziness and difficulty seeing and presented to the hospital where CT scan of her brain showed a possible left occipital stroke. MRI confirmed the finding today. She is on Crestor but it is a low dose at 10 mg she was placed on high-dose Lipitor as well as a aspirin today. LDL cholesterol is 106 triglycerides are okay and her HDL is low at 33. She will need to be discharged on a higher dose of Crestor and will continue with a baby aspirin. We will continue to monitor overnight as she continues to have a bit of a headache and will continue to monitor NIH is for possible hemorrhagic conversion. So far telemetry is unremarkable and no A. fib has been identified. Visit Charges Inpatient E&M: 92507 Subs Hosp L2
[2020-10-11] MEDS: Acetaminophen 500 MG Tablet 1000 MG PO ×2 (15:55→21:06)
--- NOTE | 2020-10-11 17:00 | CASEMGMT ---
Addendum entered by Meri Georges 10/11/20 17:52: Patient with history of anxiety and compliant with medication. Original Note: SOCIAL WORK Met with patient in room. Introduced role and reason for visit. Patient positive for CVA. PHQ 9 completed with patient. Emotional support and active listening provided. Bryan Georges, TRASHMAN, COMPRESSOR STATION ENGINEER
[2020-10-11] MEDS: Atorvastatin Calcium 80 MG Tablet PO (21:06)
--- NOTE | 2020-10-11 21:41 | CT_ITS ---
STUDY: CT BRAIN WITHOUT CONTRAST REASON FOR EXAM: Female, 55 years old. Aphasic this evening RADIATION DOSAGE (If Supplied By Facility): CTDIvol = ( 44.99 ) mGy, DLP = ( 812.98 ) mGycm TECHNIQUE: Transaxial CT imaging of the brain was performed without administration of intravenous contrast material. Individualized dose optimization techniques were used for this CT. COMPARISON: Initial head CT dated October 10, 2020 MRI of the brain dated October 11, 2020 at 1004 AM FINDINGS: There is increased edema within the infarcted parenchyma in the medial and posterior aspect of the left temporal lobe extending into the anterior aspect of the left occipital lobe but the overall region of acutely infarcted parenchyma has not changed, involving a 5.39 x 2.69 cm region. No demonstrated hemorrhagic transformation. No new acute infarcts are visualized. Normal soft tissue structures. Normal calvarium. There is mild cerebral atrophy with widening of the extra-axial spaces and ventricular dilatation. There are areas of decreased attenuation within the white matter tracts of the supratentorial brain, consistent with microvascular disease changes. Normal basal ganglia and thalami. Normal brainstem. Normal cerebellum. Normal visualized paranasal sinuses. CT/Brain/Head without Contrast IMPRESSION: 1. There is increased edema within the infarcted parenchyma in the medial and posterior aspect of the left temporal lobe extending into the anterior aspect of the left occipital lobe but the overall region of acutely infarcted parenchyma has not changed, involving a 5.39 x 2.69 cm region. 2. No demonstrated hemorrhagic transformation. 3. No new acute infarcts are visualized Electronically Signed: Ramakrishna Hicks MD at 23:33 EDT , Service support ,
[2020-10-12] VITALS (11 sets, daily range): BP systolic 114–157; BP diastolic 66–98; PULSE 78–112; RESP 14–18; TEMP 36.3–36.9; O2SAT 92–97; BMI 33.9
--- NOTE | 2020-10-12 00:04 | PCM.PN.BLA ---
Progress Note Nurse reported patient with increased aphasia. Stat CT chest done. Edema of infected area noted on CT. Start Decadron for vasogenic edema.
[2020-10-12] MEDS: dexAMETHasone 4 MG Tablet PO ×5 (00:36→23:01)
[2020-10-12] MEDS: Acetaminophen 500 MG Tablet 1000 MG PO ×3 (05:15→21:40)
[2020-10-12 06:24] LABS: Absolute Lymphocyte Count 1.36 X10^3/uL (0.83-4.51); Absolute Neutrophil Count 9.6 X10^3/uL (2.0-7.7); Basophil# 0.04 X10^3/uL; Basophil% 0.4 % (0-1); Differential Indicated SCAN CRITERIA MET; Eosinophil# 0.03 X10^3/uL; Eosinophils% 0.3 % (0-5); Hematocrit 48.3 % (37-47); Hemoglobin 15.6 g/dL (12.0-15.0); Lymphocyte # 1.36 X10^3/ul (0.83-4.51); Lymphocyte % 12.1 % (19-41); Mean Corp Hgb Conc 32.3 g/dL (32-36); Mean Corpuscular Hgb 28.4 pg (27.0-32.0); Mean Platelet Vol. 9.7 fl (6.2-12.0); Monocyte# 0.17 X10^3/uL; Monocyte% 1.5 % (0-10); NRBC Flagged by Analyzer 0 % (0-5); Neutrophil # 9.63 X10^3/uL (2.7-7.7); Neutrophil % 85.3 % (47-70); POSITIVE COUNT YES; Platelet Count 286 K/mm3 (150-450); RBC Distribution Width CV 12.7 % (11.6-14.6); Red Blood Count 5.49 M/mm3 (4.2-5.4); White Blood Count 11.3 K/mm3 (4.4-11.0)
[2020-10-12 06:55] LABS: Differential Comment SCANNED
[2020-10-12 06:56] LABS: Platelet Estimate ADEQUATE (ADEQ)
[2020-10-12] MEDS: Fluticasone 0.05% 1 SPRAY NASAL.SRY 2 SPRAY NASAL (10:13)
[2020-10-12] MEDS: FLUoxetine 20 MG Capsule PO (10:16)
[2020-10-12] MEDS: Cholecalciferol (VIT D3) 25 MCG TABLET (1,000 UNITS) 50 MCG PO (10:16)
[2020-10-12] MEDS: Ascorbic Acid 500 MG Tablet 1000 MG PO (10:17)
[2020-10-12] MEDS: Aspirin 325 MG Tablet PO (10:19)
--- NOTE | 2020-10-12 11:18 | PCM.PN.HOSP ---
Documented by User: Raulito CAMPOS 10/12/20 11:29 Subjective Subjective Patient is a 55-year-old female comfortably resting in bed, alert and oriented x3. Patient still reports ongoing vision problems and headache. Denies chest pain, shortness of breath, palpitations, hemoptysis, sputum production, fever, chills, N/V/D. Objective Data Objective Data Vital Signs: Vital Signs Temp Pulse Resp BP Pulse Ox 98.5 F 78 14 152/81 H 92 10/12/20 08:33 10/12/20 08:33 10/12/20 08:33 10/12/20 08:33 10/12/20 08:33 Oxygen Flow Rate (L/min) 2 Oxygen Delivery Method Room Air Weight: 210 lb 1.608 oz Body Mass Index (BMI) 33.9 Intake & Output: Intake and Output for Last 24 Hours 10/10/20 10/11/20 10/12/20 23:59 23:59 23:59 Intake Total 100 / 320 820 / 820 Balance 100 / 320 820 / 820 Lab / Micro Data Result Diagrams: 10/12/20 05:40 10/10/20 19:45 Labs: Laboratory Results - last 24 hr 10/12/20 05:40 WBC 11.3 H RBC 5.49 H Hgb 15.6 H Hct 48.3 H MCV 88.0 MCH 28.4 MCHC 32.3 RDW Std Deviation 41.0 RDW Coeff of Alanis 12.7 Plt Count 286 MPV 9.7 Immature Gran % (Auto) 0.400 Neut % (Auto) 85.3 H Lymph % (Auto) 12.1 L Wirt % (Auto) 1.5 Eos % (Auto) 0.3 Baso % (Auto) 0.4 Absolute Neuts (auto) 9.6 H Absolute Lymphs (auto) 1.36 Nucleated RBC % 0 Differential Comment SCANNED Platelet Estimate ADEQUATE Radiography Diagnostic Testing: Radiology Impression Echocardiogram 10/10/20 21:43 Interpretation Summary Normal LV size. Left ventricular systolic function is normal. The estimated ejection fraction is 60 %. Stage 1 diastolic dysfunction. Bubble contrast study negative for right to left interatrial shunt. Bileaflet diffuse mitral valve thickening. Ordering Physician: Damon Gutierrez Referring Physician: Sean Salamanca Performed By: Aleja Vazquez RDCS Brain MRI 10/11/20 10:00 IMPRESSION: 1. 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 2. Moderately severe chronic white matter ischemic disease. Electronically Signed: Jena Benavides MD at 16:22 EDT Tel , Service support , Brain CT 10/11/20 21:41 IMPRESSION: 1. There is increased edema within the infarcted parenchyma in the medial and posterior aspect of the left temporal lobe extending into the anterior aspect of the left occipital lobe but the overall region of acutely infarcted parenchyma has not changed, involving a 5.39 x 2.69 cm region. 2. No demonstrated hemorrhagic transformation. 3. No new acute infarcts are visualized Electronically Signed: Ramakrishna Hicks MD at 23:33 EDT , Service support , Physical Exam Const alert, oriented x3 and no apparent distress HEENT head/scalp atraumatic and moist oral mucous membranes Head and Scalp: normocephalic Eyes PERRL, EOMs intact bilaterally and conjunctivae normal Eyes Narrative: Patient reports ongoing blurry vision in the left eye and reports difficulty reading. Neck no lymphadenopathy, supple and no JVD Resp normal respiratory effort, no retractions and no use of accessory muscles Cardio regular rate, regular rhythm, no murmurs and no JVD GI normal to inspection, nondistended, normoactive bowel sounds, soft to palpation and non-tender Extremity normal to inspection, full ROM and no clubbing, cyanosis or edema Skin no rashes or lesions noted, no wounds and skin turgor normal Neuro CN's II-XII intact bilaterally Psych affect normal Assessment & Plan Assessment/Plan (1) Occipital stroke: PLAN: Day 3: See subjective. Discharge plan: No home health care or additional therapies identified. Patient has ongoing vision problems and headache secondary to #8, will remain admitted overnight. 1) acute CVA SOC Tele neuro consult; Dx Left. Hemispheric stroke, continue Aspirin & Statain, consider Ezetimibe/PCSK9 inhibitor, consider icosepent ethyl/Fibrate, Consider Pioglitozone, obtain KIMBERLEE as as oupatient. KIMBERLEE demonstrated normal LV size and systolic function, an estimated EF of 60% and stage I diastolic dysfunction. Plan; MRI ordered/pending, SOC teleneurology consult ordered/pending, continue aspirin, statin, possible discharge home tomorrow. 2) HTN Stable, labetalol and hydralazine as needed. 3) leukocytosis Observed on CBC obtained in the ED, likely reactive. Patient's vital signs are stable patient is afebrile satting at 98% on room air. 4) depression/anxiety Continue fluoxetine. 5) PCKD Continue tolvaptan. 6) CKD stage III Stable, creatinine is at baseline. 7) GERD Continue famotidine. 8) vasogenic edema secondary to acute stroke Patient complained of ongoing vision and headache complaints overnight. Brain CT ordered overnight and demonstrated increased edema within the infarcted parenchyma of the medial and posterior L aspect of the left temporal lobe. Decadron 4 mg p.o. every 6 ordered. Plan; continue Decadron. Patient seen by Raulito Urbina PA-C, under the supervision of Dr. Spencer. Documented by User: Dr. Brian Spencer MD 10/12/20 15:17 Objective Data Lab / Micro Data Result Diagrams: 10/12/20 05:40 10/10/20 19:45 Charges/Coding Addendum Addendum: Dr. Spencer: I personally reviewed the chart and examined the patient, and agree with the above findings. 55-year-old female presents to the hospital yesterday with signs of a stroke. She had been walking with her when she felt unsteady and unwell. She has some dizziness and difficulty seeing and presented to the hospital where CT scan of her brain showed a possible left occipital stroke. MRI confirmed the finding today. She is on Crestor but it is a low dose at 10 mg she was placed on high-dose Lipitor as well as a aspirin today. LDL cholesterol is 106 triglycerides are okay and her HDL is low at 33. She will need to be discharged on a higher dose of Crestor and will continue with a baby aspirin. We will continue to monitor overnight as she continues to have a bit of a headache and will continue to monitor NIH is for possible hemorrhagic conversion. So far telemetry is unremarkable and no A. fib has been identified. 10/12/2020: Continues to have some headache though it is much better than it was yesterday. As well as continuing to have vision changes though she states that that also improved. Overnight she did have an episode of aphasia and a CT scan was obtained to rule out bleeding and it was noticed that she was having edema in the area of her stroke. We will restart her home lisinopril control her blood pressure and she was started on Decadron overnight for the swelling. Visit Charges Inpatient E&M: 48768 Subs Hosp L2
[2020-10-12] MEDS: Atorvastatin Calcium 80 MG Tablet PO (21:41)
[2020-10-13] VITALS (9 sets, daily range): BP systolic 145–160; BP diastolic 69–76; PULSE 69–95; RESP 16–18; TEMP 36.2–36.6; O2SAT 95–98; BMI 33.9
[2020-10-13 01:51] LABS: Bedside Glucose 94 mg/dL (70-110)
[2020-10-13] MEDS: dexAMETHasone 4 MG Tablet PO ×2 (05:46→11:13)
[2020-10-13] MEDS: Acetaminophen 500 MG Tablet 1000 MG PO (05:46)
[2020-10-13 06:40] LABS: Absolute Lymphocyte Count 2.04 X10^3/uL (0.83-4.51); Absolute Neutrophil Count 13.2 X10^3/uL (2.0-7.7); Basophil# 0.03 X10^3/uL; Basophil% 0.2 % (0-1); Eosinophil# 0.01 X10^3/uL; Eosinophils% 0.1 % (0-5); Hematocrit 43.7 % (37-47); Hemoglobin 14.5 g/dL (12.0-15.0); Lymphocyte # 2.04 X10^3/ul (0.83-4.51); Lymphocyte % 12.7 % (19-41); Mean Corp Hgb Conc 33.2 g/dL (32-36); Mean Corpuscular Hgb 29.1 pg (27.0-32.0); Mean Corpuscular Volume 87.8 fL (81-99); Mean Platelet Vol. 9.4 fl (6.2-12.0); Monocyte# 0.71 X10^3/uL; Monocyte% 4.4 % (0-10); NRBC Flagged by Analyzer 0 % (0-5); Neutrophil # 13.22 X10^3/uL (2.7-7.7); Platelet Count 358 K/mm3 (150-450); RBC Distribution Width CV 12.5 % (11.6-14.6); RBC Distribution Width SD 39.9 fl (35.1-43.9); Red Blood Count 4.98 M/mm3 (4.2-5.4); White Blood Count 16.1 K/mm3 (4.4-11.0)
[2020-10-13 07:11] LABS: Anion Gap 11 (5-15); BUN 15 mg/dL (7-18); BUN/Creat Ratio 13.5 RATIO (10-20); Calcium,Total 9.4 mg/dL (8.5-10.1); Chloride 107 mmol/L (98-107); Creatinine, Serum 1.11 mg/dL (0.55-1.02); EST Glomerular Filtration Rate 54 mL/min (>60); Est Glom Filt Rate - Afr Amer 66 mL/min (>60); Estimated Creatinine Clearance 54.24 ml/min; Glucose 147 mg/dL (74-106); Potassium 4.5 mmol/L (3.5-5.1); Sodium Level 135 mmol/L (136-145)
[2020-10-13] MEDS: Aspirin 325 MG Tablet PO (08:34)
[2020-10-13] MEDS: Cholecalciferol (VIT D3) 25 MCG TABLET (1,000 UNITS) 50 MCG PO (08:34)
[2020-10-13] MEDS: Lisinopril 20 MG Tablet PO (08:36)
[2020-10-13] MEDS: FLUoxetine 20 MG Capsule PO (08:37)
[2020-10-13] MEDS: oxyCODONE 5 MG Tablet PO (08:38)
[2020-10-13] MEDS: Fluticasone 0.05% 1 SPRAY NASAL.SRY 2 SPRAY NASAL (08:39)
[2020-10-13] MEDS: Ascorbic Acid 500 MG Tablet 1000 MG PO (08:42)
--- NOTE | 2020-10-13 10:21 | PCM.DC ---
Discharge Instructions Diet Discharge Diet: No restrictions Activity Discharge Activity: Return to Normal Activity Follow Up Care Please Follow Up With: Primary care provider When: Within the next two weeks. Test Results: Test results from this visit will be discussed in further detail at your follow-up appointment, if applicable. Discharge Plan Admission Admit Date/Time: 10/10/20 21:43 Primary Reason for Your Visit: Stroke Attending Provider: Brian Spencer Primary Care Provider: Sean Salamanca Discharge Orders/Prescriptions Prescriptions: New rosuvastatin 40 mg tablet 40 mg PO QHS Qty: 30 RF: 0 aspirin 81 mg tablet,chewable 81 mg PO DAILY Qty: 30 RF: 0 dexamethasone [Decadron] 4 mg tablet 4 mg PO BID Qty: 10 RF: 0 Continued cholecalciferol (vitamin D3) 2,000 unit capsule 2,000 unit PO ONCE RF: 0 ascorbic acid (vitamin C) 1,000 mg tablet 1 g PO DAILY RF: 0 cetirizine [Zyrtec] 10 mg tablet 10 mg PO DAILY PRN (Reason: Allergy Symptoms) RF: 0 Jynarque 60 mg (AM)/ 30 mg (PM) tablets, sequential See Rx Instructions PO PER PKG DIR RF: 0 eszopiclone [Lunesta] 1 mg tablet 1 mg PO QHS PRN (Reason: insomnia) Qty: 20 RF: 0 lisinopril 20 tablet 20 mg PO DAILY RF: 0 levonorgestrel-ethinyl estrad 90-20 mcg tablet 1 tab PO DAILY RF: 0 famotidine 20 mg tablet 20 mg PO QHS PRN (Reason: Acid Reflux) RF: 0 fluoxetine 20 mg capsule 20 mg PO DAILY RF: 0 fluticasone propionate 50 mcg/actuation spray,suspension 2 spray INTRANASAL DAILY RF: 0 Discontinued rosuvastatin 10 mg tablet 10 mg PO QHS RF: 0 Referrals / Follow Up: Sean Salamanca MD [Primary Care Provider] - Within 2 Weeks Disposition Disposition (needs filled in before D/C Order can be placed): Home, Self Care
--- NOTE | 2020-10-13 10:22 | NURSING ---
[facility] updated to [facility] ordered. Pt was positive for infarct. Pt has no difficulty with swallow or communication. Pt struggling w/ reading. PA would like to d/c pt today. Karen will send Zenia to [facility] pt.
--- NOTE | 2020-10-13 11:00 | CASEMGMT ---
Palliative screening tool completed for Lace/Strata 3. Patient does not meet criteria for palliative consult at this time.
--- NOTE | 2020-10-13 11:05 | PHA.DC.MC ---
Pharmacy Service has performed discharge medication reconciliation and counseling for this patient. 1. ASPIRIN 81MG PO DAILYCM 2. DEXAMETHASONE 4MG PO BID X 5 DAYS The patient's discharge medication list was reviewed for discrepancies and discrepancies were resolved. Patient told this [facility] she feels way worse than yesterday and her chest is hurting. This [facility] notified BETH Cabezas and he said he will check on her. Home Medications lisinopril 20 mg PO DAILY 02/15/17 ascorbic acid (vitamin C) 1,000 mg tablet 1 g PO DAILY 04/01/17 cholecalciferol (vitamin D3) 50 mcg (2,000 unit) capsule 2,000 unit PO ONCE 04/01/17 levonorgestrel-ethinyl estradiol 90 mcg-20 mcg (28) tablet 1 tab PO DAILY 08/05/17 tolvaptan (polycys kidney dis) See Rx Instructions PO PER PKG DIR 12/26/18 cetirizine 10 mg tablet 10 mg PO DAILY PRN 08/31/19 eszopiclone 1 mg tablet 1 mg PO QHS PRN #20 tab 09/10/20 famotidine 20 mg PO QHS PRN 10/10/20 fluoxetine 20 mg PO DAILY 10/10/20 fluticasone propionate 2 spray INTRANASAL DAILY 10/10/20 aspirin 81 mg PO DAILY #30 tab 10/13/20 dexamethasone [Decadron] 4 mg PO BID #10 tab 10/13/20 rosuvastatin 40 mg PO QHS #30 tab 10/13/20 The patient was counseled on the following discharge medications and changes in medications for homegoing were reviewed. The Reason for Use, instructions for use, and potential side effects were reviewed for all new medications. The patient's questions regarding all of their medications were answered. The patient was able to verbally demonstrate an understanding of their discharge medications.
--- NOTE | 2020-10-13 13:34 | PCM.DC.SUM ---
Documented by User: Raulito CAMPOS 10/13/20 13:40 Providers Date of Admission: 10/10/20 Primary Care Physician: Dr. Sean Salamanca MD Reason For Visit: CVA Diagnosis Discharge Diagnosis (1) Occipital stroke: Status: Acute Code(s): I63.9 - Cerebral infarction, unspecified Medications at Discharge Home Medications lisinopril 20 mg PO DAILY 02/15/17 ascorbic acid (vitamin C) 1,000 mg tablet 1 g PO DAILY 04/01/17 cholecalciferol (vitamin D3) 50 mcg (2,000 unit) capsule 2,000 unit PO ONCE 04/01/17 levonorgestrel-ethinyl estradiol 90 mcg-20 mcg (28) tablet 1 tab PO DAILY 08/05/17 tolvaptan (polycys kidney dis) See Rx Instructions PO PER PKG DIR 12/26/18 cetirizine 10 mg tablet 10 mg PO DAILY PRN 08/31/19 eszopiclone 1 mg tablet 1 mg PO QHS PRN #20 tab 09/10/20 famotidine 20 mg PO QHS PRN 10/10/20 fluoxetine 20 mg PO DAILY 10/10/20 fluticasone propionate 2 spray INTRANASAL DAILY 10/10/20 aspirin 81 mg PO DAILY #30 tab 10/13/20 dexamethasone [Decadron] 4 mg PO BID #10 tab 10/13/20 rosuvastatin 40 mg PO QHS #30 tab 10/13/20 Hospital Course Summary of Care Provided Minutes Spent on Discharge: 35 Hospital Course: Disposition. Patient to be discharged home. Patient is to follow-up with speech therapy as an outpatient. No additional home health care needs or other therapies identified. 1) acute CVA SOC Tele neuro consult; Dx Left. Hemispheric stroke, continue Aspirin & Statain, consider Ezetimibe/PCSK9 inhibitor, consider icosepent ethyl/Fibrate, Consider Pioglitozone, obtain KIMBERLEE as as oupatient. KIMBERLEE demonstrated normal LV size and systolic function, an estimated EF of 60% and stage I diastolic dysfunction. Plan; initiate aspirin 80 mg p.o. daily, increase rosuvastatin to 40 mg p.o. daily, follow-up with primary care provider within the next 2 weeks. 2) HTN Stable, labetalol and hydralazine as needed. 3) leukocytosis Initially likely reactive, likely elevated now due to dexamethasone treatments. Patient's vital signs are stable patient is afebrile satting at 98% on room air. 4) depression/anxiety Continue fluoxetine. 5) PCKD Continue tolvaptan. 6) CKD stage III Stable, creatinine is at baseline. 7) GERD Continue famotidine. 8) vasogenic edema secondary to acute stroke Patient's vision problems are mild at this point. Patient reports improvement in headache and vision changes relative to at admission. Brain CT ordered overnight and demonstrated increased edema within the infarcted parenchyma of the medial and posterior L aspect of the left temporal lobe. Plan; continue Decadron 4 mg p.o. twice daily x5 days. Patient seen by Raulito Urbina PA-C, under the supervision of Dr. Spencer. Physical Exam Narrative Patient is a 55-year-old female comfortably resting in bed, alert and orient x3. Patient reports improvement of her vision changes relative to yesterday. Denies chest pain, shortness of breath, palpitations, hemoptysis, sputum production, fever, chills, N/V/D. Const alert, oriented x3 and no apparent distress HEENT normocephalic, head/scalp atraumatic and hearing grossly normal bilaterally Eyes EOMs intact bilaterally and conjunctivae normal Neck no lymphadenopathy, supple and no JVD Resp normal respiratory effort, no retractions, no use of accessory muscles and clear to auscultation bilaterally Cardio regular rate, regular rhythm, no murmurs and no JVD GI normal to inspection, nondistended, normoactive bowel sounds, soft to palpation and non-tender Extremity normal to inspection, full ROM and no clubbing, cyanosis or edema Skin no rashes or lesions noted, no wounds and skin turgor normal Neuro CN's II-XII intact bilaterally Neuro Narrative: Improvement in vision changes relative to yesterday. Psych affect normal Weight / BMI Weight Weight: 210 lb 1.608 oz Body Mass Index (BMI) 33.9 ABG / Lab / Microbiology Data Result Diagrams: 10/13/20 06:15 10/13/20 06:03 Laboratory: Laboratory Results - last 24 hr 10/10/20 19:25: POC Glucose 94 10/13/20 06:03: Sodium 135 L, Potassium 4.5, Chloride 107, Carbon Dioxide 17.0 L, Anion Gap 11, BUN 15, Creatinine 1.11 H, Estim Creat Clear Calc 54.24, Est GFR (MDRD) Af Amer 66, Est GFR (MDRD) Non-Af 54 L, BUN/Creatinine Ratio 13.5, Glucose 147 H, Calcium 9.4 10/13/20 06:15: WBC 16.1 H, RBC 4.98, Hgb 14.5, Hct 43.7, MCV 87.8, MCH 29.1, MCHC 33.2, RDW Std Deviation 39.9, RDW Coeff of Alanis 12.5, Plt Count 358, MPV 9.4, Immature Gran % (Auto) 0.600, Neut % (Auto) 82.0 H, Lymph % (Auto) 12.7 L, [place] % (Auto) 4.4, Eos % (Auto) 0.1, Baso % (Auto) 0.2, Absolute Neuts (auto) 13.2 H, Absolute Lymphs (auto) 2.04, Nucleated RBC % 0 D/C Instructions Discharge Diet: No restrictions Please Follow Up With: Primary care provider When: Within the next two weeks. Meaningful Use Info Meaningful Use Diagnoses (Choose all that apply): Ischemic CVA CVA Therapy Assessed for PT,OT and/or ST?: Yes Ischemic Stroke Antithrombotic order at d/c?: Yes Dx of Atrial fib/flutter?: No Statins at discharge?: Yes Primary Dx Acute Ischemic CVA?: Yes IV tPA ordered during stay?: No Reason IV t-PA not ordered: Medical Contraindication Discharge Plan Admission Admit Date/Time: 10/10/20 21:43 Primary Reason for Your Visit: Stroke Attending Provider: Brian Spencer Primary Care Provider: Sean Salamanca Discharge Orders/Prescriptions Prescriptions: New rosuvastatin 40 mg tablet 40 mg PO QHS Qty: 30 RF: 0 aspirin 81 mg tablet,chewable 81 mg PO DAILY Qty: 30 RF: 0 dexamethasone [Decadron] 4 mg tablet 4 mg PO BID Qty: 10 RF: 0 Continued cholecalciferol (vitamin D3) 2,000 unit capsule 2,000 unit PO ONCE RF: 0 ascorbic acid (vitamin C) 1,000 mg tablet 1 g PO DAILY RF: 0 cetirizine [Zyrtec] 10 mg tablet 10 mg PO DAILY PRN (Reason: Allergy Symptoms) RF: 0 Jynarque 60 mg (AM)/ 30 mg (PM) tablets, sequential See Rx Instructions PO PER PKG DIR RF: 0 eszopiclone [Lunesta] 1 mg tablet 1 mg PO QHS PRN (Reason: insomnia) Qty: 20 RF: 0 lisinopril 20 tablet 20 mg PO DAILY RF: 0 levonorgestrel-ethinyl estrad 90-20 mcg tablet 1 tab PO DAILY RF: 0 famotidine 20 mg tablet 20 mg PO QHS PRN (Reason: Acid Reflux) RF: 0 fluoxetine 20 mg capsule 20 mg PO DAILY RF: 0 fluticasone propionate 50 mcg/actuation spray,suspension 2 spray INTRANASAL DAILY RF: 0 Discontinued rosuvastatin 10 mg tablet 10 mg PO QHS RF: 0 Referrals / Follow Up: Sean Salamanca MD [Primary Care Provider] - Within 2 Weeks Disposition Disposition (needs filled in before D/C Order can be placed): Home, Self Care Documented by User: Dr. Brian Spencer MD 10/13/20 14:23 Providers Date of Admission: 10/10/20 Reason For Visit: CVA Medications at Discharge Home Medications lisinopril 20 mg PO DAILY 02/15/17 ascorbic acid (vitamin C) 1,000 mg tablet 1 g PO DAILY 04/01/17 cholecalciferol (vitamin D3) 50 mcg (2,000 unit) capsule 2,000 unit PO ONCE 04/01/17 levonorgestrel-ethinyl estradiol 90 mcg-20 mcg (28) tablet 1 tab PO DAILY 08/05/17 tolvaptan (polycys kidney dis) See Rx Instructions PO PER PKG DIR 12/26/18 cetirizine 10 mg tablet 10 mg PO DAILY PRN 08/31/19 eszopiclone 1 mg tablet 1 mg PO QHS PRN #20 tab 09/10/20 famotidine 20 mg PO QHS PRN 10/10/20 fluoxetine 20 mg PO DAILY 10/10/20 fluticasone propionate 2 spray INTRANASAL DAILY 10/10/20 aspirin 81 mg PO DAILY #30 tab 10/13/20 dexamethasone [Decadron] 4 mg PO BID #10 tab 10/13/20 rosuvastatin 40 mg PO QHS #30 tab 10/13/20 ABG / Lab / Microbiology Data Result Diagrams: 10/13/20 06:15 10/13/20 06:03 Discharge Plan Admission Admit Date/Time: 10/10/20 21:43 Primary Reason for Your Visit: Stroke Attending Provider: Brian Spencer Primary Care Provider: Sean Salamanca Discharge Orders/Prescriptions Prescriptions: New rosuvastatin 40 mg tablet 40 mg PO QHS Qty: 30 RF: 0 aspirin 81 mg tablet,chewable 81 mg PO DAILY Qty: 30 RF: 0 dexamethasone [Decadron] 4 mg tablet 4 mg PO BID Qty: 10 RF: 0 Continued cholecalciferol (vitamin D3) 2,000 unit capsule 2,000 unit PO ONCE RF: 0 ascorbic acid (vitamin C) 1,000 mg tablet 1 g PO DAILY RF: 0 cetirizine [Zyrtec] 10 mg tablet 10 mg PO DAILY PRN (Reason: Allergy Symptoms) RF: 0 Jynarque 60 mg (AM)/ 30 mg (PM) tablets, sequential See Rx Instructions PO PER PKG DIR RF: 0 eszopiclone [Lunesta] 1 mg tablet 1 mg PO QHS PRN (Reason: insomnia) Qty: 20 RF: 0 lisinopril 20 tablet 20 mg PO DAILY RF: 0 levonorgestrel-ethinyl estrad 90-20 mcg tablet 1 tab PO DAILY RF: 0 famotidine 20 mg tablet 20 mg PO QHS PRN (Reason: Acid Reflux) RF: 0 fluoxetine 20 mg capsule 20 mg PO DAILY RF: 0 fluticasone propionate 50 mcg/actuation spray,suspension 2 spray INTRANASAL DAILY RF: 0 Discontinued rosuvastatin 10 mg tablet 10 mg PO QHS RF: 0 Referrals / Follow Up: Sean Salamanca MD [Primary Care Provider] - Within 2 Weeks Disposition Disposition (needs filled in before D/C Order can be placed): Home, Self Care Charges/Coding Addendum Addendum: Dr. Spencer: I personally reviewed the chart and examined the patient, and agree with the above findings. 55-year-old female presents to the hospital yesterday with signs of a stroke. She had been walking with her when she felt unsteady and unwell. She has some dizziness and difficulty seeing and presented to the hospital where CT scan of her brain showed a possible left occipital stroke. MRI confirmed the finding today. She is on Crestor but it is a low dose at 10 mg she was placed on high-dose Lipitor as well as a aspirin today. LDL cholesterol is 106 triglycerides are okay and her HDL is low at 33. She will need to be discharged on a higher dose of Crestor and will continue with a baby aspirin. We will continue to monitor overnight as she continues to have a bit of a headache and will continue to monitor NIH is for possible hemorrhagic conversion. So far telemetry is unremarkable and no A. fib has been identified. 10/12/2020: Continues to have some headache though it is much better than it was yesterday. As well as continuing to have vision changes though she states that that also improved. Overnight she did have an episode of aphasia and a CT scan was obtained to rule out bleeding and it was noticed that she was having edema in the area of her stroke. We will restart her home lisinopril control her blood pressure and she was started on Decadron overnight for the swelling. 10/13/2020: Feels better today, still has little bit of a headache I anticipate that this will take little bit of time to resolve given the viktor-infarct edema. Her other neurological symptoms seem to be improving we will plan to discharge her on a few days more of some steroids and then continue with her blood pressure medication. Will continue with aspirin and higher dose on her Crestor. She will need to follow-up with a neurologist as an outpatient, for further evaluation and monitoring. Echo with a normal EF and negative bubble with mitral valve bileaflet thickening. Plan for outpatient follow-up with both neurology and her PCP. Visit Charges Inpatient E&M: 03217 Disch Hosp
--- NOTE | 2020-10-13 14:28 | CASEMGMT ---
Speech is recommending OP therapy and pt is agreeable and would like [facility] as her has been there in the past. Script for OP speech faxed to [facility] and original to pt. Pt/ voice no further questions/concerns/needs. Toño MORLEY CM
--- NOTE | 2020-10-14 14:03 | CASEMGMT ---
PEYMAN ABRAMS Discharge Follow-up Phone Call: NRUAE: Delio Strata: 3 Call Date: 10/14/20 Discharge Date: 10/13/20 Time of Call: 1400 Duration: 3 min Admitting Diagnosis: CVA PEYMAN ABRAMS complete follow-up phone call after recent hospitalization. Patient unavailable to talk, Jamel states patient doing well. had no questions or concerns regarding discharge instructions. was able to fill prescriptions without any issues. Patient has follow-up appt scheduled with PCP. had no further questions or concerns at this time.
== END 2020-10-13 14:54 | disposition home or self-care (01) | DRG 64 ==
LOC: ED 20:02 → PCU 10-11 07:01
PROVIDERS: Physician Assistant; Admitting Provider Hospitalist; Emergency Provider Emergency Medicine; PCP Internal Medicine; Visit Provider Family Medicine
DX: I63.9 Cerebral infarction, unspecified (principal); G93.6 Cerebral edema; Q61.3 Polycystic kidney, unspecified; I12.9 Hypertensive chronic kidney disease with stage 1 through stage 4 chronic kidney disease, or unspecified chronic kidney disease; D72.829 Elevated white blood cell count, unspecified; F32.9 Major depressive disorder, single episode, unspecified; F41.9 Anxiety disorder, unspecified; K21.9 Gastro-esophageal reflux disease without esophagitis; R29.702 NIHSS score 2; H53.8 Other visual disturbances; R41.89 Other symptoms and signs involving cognitive functions and awareness; N18.31 Chronic kidney disease, stage 3a; R47.01 Aphasia
CPT/HCPCS: 36415; 70450; 70496; 70498; 70551; 71045; 80048; 80061; 82962; 83036; 84484; 85025; 85610; 85730; 92523; 93005; 93306; 94762; 97112; 97162; 97166; 97530; 97535; 97802; 99284; Q9957; Q9967; A4216; C8929; J3490

== ENCOUNTER → 2020-11-05 08:39 | Outpatient (CLI) | payer OTHER, SELFPAY ==
[2020-10-16 10:01] VITALS: BMI 33.9
[2020-11-05 12:11] LABS: Hematocrit 42.7 % (37-47); Hemoglobin 13.6 g/dL (12.0-15.0); Mean Corp Hgb Conc 31.9 g/dL (32-36); Mean Corpuscular Hgb 28.6 pg (27.0-32.0); Mean Corpuscular Volume 89.9 fL (81-99); Mean Platelet Vol. 9.8 fl (6.2-12.0); Platelet Count 287 K/mm3 (150-450); RBC Distribution Width CV 12.4 % (11.6-14.6); RBC Distribution Width SD 40.6 fl (35.1-43.9); Red Blood Count 4.75 M/mm3 (4.2-5.4); White Blood Count 7.8 K/mm3 (4.4-11.0)
[2020-11-05 12:26] LABS: Vitamin D,25 Hydroxy 52.4 ng/mL
[2020-11-05 12:27] LABS: Albumin, Serum 3.4 g/dL (3.2-5.0); BUN 13 mg/dL (7-18); BUN/Creat Ratio 11.4 RATIO (10-20); Calcium,Total 9.1 mg/dL (8.5-10.1); Chloride 107 mmol/L (98-107); Creatinine, Serum 1.14 mg/dL (0.55-1.02); EST Glomerular Filtration Rate 53 mL/min (>60); Est Glom Filt Rate - Afr Amer 64 mL/min (>60); Glucose 143 mg/dL (74-106); Phosphorus 3.5 mg/dL (2.5-4.9); Sodium Level 139 mmol/L (136-145)
[2020-11-05 12:35] LABS: PTHIN 41.7 pg/mL (18.4-80.1)
[2020-11-05 12:42] LABS: Microalbumin,Random Urine 10.9 mg/L (NO RANGE EST.); Microalbumin:Creatinine Ratio 31.4 mg/g CRE (<30 mg/g CRE); Protein, Urine (Random) < 6.0 mg/dL (<11.9)
== END ==
PROVIDERS: PCP Internal Medicine; Referring Provider Pediatrics Pediatric Nephrology; Visit Provider Pediatrics Pediatric Nephrology
DX: N18.31 Chronic kidney disease, stage 3a (principal)
CPT/HCPCS: 36415; 80069; 82043; 82306; 82570; 83970; 84156; 85027

== ENCOUNTER → 2020-11-20 10:37 | Outpatient (CLI) | payer OTHER, SELFPAY ==
[2020-11-20 11:25] LABS: Erythrocyte Sedimentation Rate 19 mm/hr (0-30)
[2020-11-20 11:53] LABS: Vitamin B12 399 pg/mL (211-911)
[2020-11-20 12:08] LABS: Thyroid Stim Hormone (TSH) 1.84 uIU/mL (0.358-3.74)
[2020-11-21 21:15] LABS: ANTINUCLEAR ANTIBODIES DIRECT Negative (Negative)
[2020-11-26 16:08] LABS: Complement C3 175 mg/dL (82-167); Dilute Prothrombin Time (dPT) 33.2 sec (0.0-55.0); PTT-LA 30.5 sec (0.0-51.9); Protein C Antigen 95 % (60-150); dPT Confirm Ratio 1.07 Ratio (0.00-1.40)
[2020-11-26 18:32] LABS: Anti-Cardiolipin Ab, IgA, Qn < 9 APL U/mL (0-11); Anti-Cardiolipin Ab, IgG, Qn < 9 GPL U/mL (0-14); Anti-Cardiolipin Ab, IgM, Qn 11 MPL U/mL (0-12); Anti-Thrombin 3 AG, Immunol 96 % (72-124); Antithrombin 3 Function 111 % (75-135); Complement CH50 > 60 U/mL (>41); Interpretation Comment: (.); Protein C, Functional 122 % (73-180); Protein S, Free 125 % (57-157); Protein S, Funtional 110 % (63-140); Protein S, Total 106 % (60-150); Vitamin B1, Thiamine 179.3 nmol/L (66.5-200.0)
== END ==
PROVIDERS: PCP Internal Medicine; Referring Provider Psychiatry & Neurology Neurology; Visit Provider Psychiatry & Neurology Neurology
DX: R41.3 Other amnesia (principal); I67.9 Cerebrovascular disease, unspecified
CPT/HCPCS: 36415; 81240; 81241; 82607; 82746; 84425; 84443; 85300; 85301; 85302; 85303; 85305; 85306; 85652; 86038; 86147; 86160; 86162; 86225; 86235

== ENCOUNTER → 2020-12-01 11:32 | Outpatient (CLI) | payer OTHER, SELFPAY ==
[2020-12-01 15:58] LABS: Follicle Stimulating Hormone 84.5 mIU/mL
== END ==
PROVIDERS: PCP Internal Medicine; Visit Provider Obstetrics & Gynecology
DX: R23.2 Flushing (principal)
CPT/HCPCS: 36415; 83001

== ENCOUNTER → 2020-12-12 14:37 | Outpatient (CLI) | payer OTHER, SELFPAY ==
[2020-12-12 15:23] LABS: Hematocrit 40.2 % (37-47); Hemoglobin 12.9 g/dL (12.0-15.0); Mean Corp Hgb Conc 32.1 g/dL (32-36); Mean Corpuscular Hgb 28.4 pg (27.0-32.0); Mean Corpuscular Volume 88.5 fL (81-99); Mean Platelet Vol. 9.4 fl (6.2-12.0); Platelet Count 279 K/mm3 (150-450); RBC Distribution Width CV 12.5 % (11.6-14.6); RBC Distribution Width SD 40.6 fl (35.1-43.9); Red Blood Count 4.54 M/mm3 (4.2-5.4); White Blood Count 10.7 K/mm3 (4.4-11.0)
[2020-12-12 15:42] LABS: Microalbumin,Random Urine 12.7 mg/L (NO RANGE EST.); Microalbumin:Creatinine Ratio 21.1 mg/g CRE (<30 mg/g CRE); Protein, Urine (Random) 14.5 mg/dL (<11.9); Protein:Creat Ratio 241 mg/g CRE (0-200)
[2020-12-12 16:52] LABS: Albumin, Serum 3.6 g/dL (3.2-5.0); BUN 20 mg/dL (7-18); Calcium,Total 9.1 mg/dL (8.5-10.1); Chloride 107 mmol/L (98-107); Creatinine, Serum 1.11 mg/dL (0.55-1.02); EST Glomerular Filtration Rate 54 mL/min (>60); Est Glom Filt Rate - Afr Amer 66 mL/min (>60); Glucose 85 mg/dL (74-106); Phosphorus 4.7 mg/dL (2.5-4.9); Potassium 4.2 mmol/L (3.5-5.1); Sodium Level 139 mmol/L (136-145)
[2020-12-12 17:09] LABS: Vitamin D,25 Hydroxy 42.5 ng/mL
[2020-12-15 08:00] LABS: PTHIN 42.6 pg/mL (18.4-80.1)
== END ==
PROVIDERS: PCP Internal Medicine; Visit Provider Pediatrics Pediatric Nephrology
DX: N18.31 Chronic kidney disease, stage 3a (principal)
CPT/HCPCS: 36415; 80069; 82043; 82306; 82570; 83970; 84156; 85027

== ENCOUNTER → 2020-12-22 14:09 | Outpatient (CLI) | payer OTHER, SELFPAY | PROVIDERS: PCP Internal Medicine; Referring Provider Physician Assistant; Visit Provider Physician Assistant | DX: U07.1 COVID-19 (principal); Z20.822 Contact with and (suspected) exposure to COVID-19; R05 Cough | CPT/HCPCS: 87635; U0005; U0003 ==

== ENCOUNTER 2020-12-25 14:23 | Outpatient (CLI) | payer OTHER, SELFPAY ==
[2020-12-25 15:04] VITALS: BP 149/59; PULSE 88; RESP 16; TEMP 36.6; O2SAT 98; BMI 33.9
[2020-12-25] MEDS: 0.9% Saline Lock 10 ML Syringe IV (15:17)
[2020-12-25 15:42] VITALS: BP 141/54; PULSE 71; RESP 16; TEMP 36.7; O2SAT 100
[2020-12-25 16:39] VITALS: BP 155/61; PULSE 67; RESP 16; TEMP 36.7; O2SAT 98
== END 2020-12-25 16:45 | disposition home or self-care (01) ==
LOC: ICUOUT 14:23 → MS3 14:24
PROVIDERS: PCP Internal Medicine; Referring Provider Nurse Practitioner Adult Health; Visit Provider Nurse Practitioner Adult Health
DX: Z23 Encounter for immunization (principal); U07.1 COVID-19
CPT/HCPCS: J7050; M0243; A4216; Q0244

== ENCOUNTER 2020-12-29 08:58 | Emergency (ER) | payer OTHER, SELFPAY ==
[2020-12-29 08:59] VITALS: BP 149/91; PULSE 124; RESP 16; TEMP 36.4; O2SAT 99; BMI 33.9
--- NOTE | 2020-12-29 09:09 | EKG12_ITS ---
Test Reason : COUGH Blood Pressure : / mmHG Vent. Rate : 102 BPM Atrial Rate : 102 BPM P-R Int : 160 ms QRS Dur : 070 ms QT Int : 348 ms P-R-T Axes : 053 007 030 degrees QTc Int : 453 ms Sinus tachycardia Otherwise normal ECG Confirmed by STEVEN ZIMMERMAN, EVELIN ([id number]), non linear editor BETTY DAY ([id number]) on 12/31/2020 11:22:51 AM Referred By: ALIYAH Confirmed By:EVELIN HARRIS MD
--- NOTE | 2020-12-29 09:11 | RAD_ITS ---
STUDY: X-RAY CHEST REASON FOR EXAM: Female, 55 years old. Cough TECHNIQUE: Single AP portable view of the chest. COMPARISON: Comparison is made with prior study dated 10/10/2020. FINDINGS: The lungs are clear and expanded. There is no demonstrated pleural abnormality. Normal size heart. Normal mediastinum and garth. Normal visualized pulmonary arteries. Normal visualized aortic arch and descending thoracic aorta. Normal visualized thoracic spine. Normal visualized ribs, clavicles, and shoulders. There is no demonstrated abnormality of the visualized soft tissue structures of the upper abdomen. RAD/Chest 1 View (Portable) IMPRESSION: Normal x-ray examination of the chest. Electronically Signed: Carmine Summers MD at 9:38 EDT , Service support ,
[2020-12-29 09:23] VITALS: BP 149/91; PULSE 104; RESP 14; TEMP 36.4; O2SAT 97
--- NOTE | 2020-12-29 09:29 | EX.ED.DYSGE1 ---
HPI History of Present Illness Chief Complaint: Cough Informant: patient and spouse/S.O. Narrative Narrative: Patient is a 55-year-old female with history of stroke, yearly bronchitis/sinusitis and polycystic kidney disease presenting for persistent cough. Patient was diagnosed with Covid 1 week ago. She started having symptoms 10 days ago. She did receive monoclonal antibodies infusion 5 days ago. She is continued to have nasal congestion, headache, decreased appetite and nonproductive cough. Her nasal mucus has changed from clear to green and has been is concerned she has a sinus infection. She has chest pain from all the coughing she is doing. As she notes she has been drinking plenty of fluids. No report of fever. No other complaints at this time. [facility] Medical History Back pain History of bloody stools HTN (hypertension) Hyperlipemia Kidney disease Mitral valve prolapse Occipital stroke Sciatica Seasonal allergies Home Medications lisinopril 20 mg PO DAILY 02/15/17 [History Last Taken 02/15/17 08:00 20 mg] ascorbic acid (vitamin C) 1,000 mg tablet 1 g PO DAILY 04/01/17 [History Last Taken Unknown] cholecalciferol (vitamin D3) 50 mcg (2,000 unit) capsule 2,000 unit PO ONCE 04/01/17 [History Last Taken Unknown] cetirizine 10 mg tablet 10 mg PO DAILY PRN 08/31/19 [History Last Taken Unknown] famotidine 20 mg PO QHS PRN 10/10/20 [History Last Taken Unknown] fluticasone propionate 2 spray INTRANASAL DAILY 10/10/20 [History Last Taken Unknown] aspirin 81 mg PO DAILY #30 tab 10/13/20 [Rx Last Taken Unknown] rosuvastatin 40 mg tablet 40 mg PO QHS #90 tab 10/14/20 [Rx Last Taken Unknown] fluoxetine 10 mg PO DAILY 12/25/20 [History Last Taken Unknown] albuterol sulfate [Ventolin HFA] 1 - 2 puff INHALATION Q4H PRN PRN #1 inh 12/29/20 [Rx Last Taken Unknown] codeine-guaifenesin 5 ml PO Q6H PRN #473 ml 12/29/20 [Rx Last Taken Unknown] Allergy/AdvReac Type Severity Reaction Status Date / Time No Known Allergies Allergy Verified 11/26/20 09:16 Family History Father Heart disease aortic aneurysm at 38 Hyperlipemia Hypertension Kidney disease Grandmother Breast cancer Grandmother Cancer uterine Sister Brain aneurysm passed at 27 Grandfather CVA (cerebral vascular accident) Surgical History History of delivery History of D&C Normal colonoscopy Social History Smoking Status: Never smoker Electronic Cigarette Use: not used second hand exposure: No alcohol intake: current alcohol intake frequency: a few times a week Alcohol type: wine substance use type: does not use what type of physical activity do you participate in: walking frequency: daily ROS ROS ED Constitutional Constitutional ED: Denies chills or fever(s) Eyes Eyes: Denies change in vision ENT ENT ED: Reports ear pain and other Details: nasal congestion Cardiovascular Cardiovascular: Reports chest pain Respiratory/Chest Respiratory/Chest: Reports cough; Denies dyspnea or sputum Gastrointestinal Gastrointestinal: Denies abdominal pain, nausea or vomiting Genitourinary Genitourinary ED: Denies dysuria Musculoskeletal Musculoskeletal: Reports myalgias; Denies arthralgias Integumentary Denies rash Neurologic Neurologic: Reports headache(s); Denies weakness Psychiatric Psychiatric: Denies anxiety or depression EXAM Physical Exam Const Vital Signs: 12/29/20 08:59 12/29/20 09:23 12/29/20 09:55 Temperature 97.6 F L 97.6 F L 98.3 F Temperature Source Temporal Temporal Oral Pulse Rate 124 H 104 H 107 H Respiratory Rate 16 14 18 Respiratory Effort Short of Breath Respiratory Depth Normal Respiratory Pattern Normal Blood Pressure 149/91 H 149/91 H 142/91 H Blood Pressure Mean 110 110 108 Pulse Ox 99 97 93 Oxygen Delivery Method Room Air Room Air Room Air Positive well nourished and well developed General Appearance ED: well developed HEENT Reports TM's clear and moist mucous membranes Negative for trauma Nose: nasal discharge mucoid Tympanic Membrane ED: Yes TM's clear Mouth ED: Yes moist mucous membranes normal Neck supple and no JVD Chest Wall inspection of chest normal Resp normal respiratory effort Resp Narrative: bronchial cough on exam Auscultation: rhonchi Cardio regular rate, regular rhythm and no murmurs GI normal to inspection, nondistended, normoactive bowel sounds Neuro oriented x3 and CN's II-XII intact bilaterally Sensorium / Orientation: alert Motor Exam: Negative for general weakness Psych mental status grossly normal Skin no rashes or lesions noted MDM MDM MDM Narrative Medical decision making narrative: Patient is evaluated for worsening cough with associated chest pain. Patient appears nontoxic and in no acute distress however still cautious and feel well. Her physical exam is more consistent with bronchitis. She is tachycardic and recently had Covid so I did order D-dimer to make sure that she does not have a PE. This is negative and she does not have any right strain pattern on her EKG so I do not suspect a PE or think CTA of the chest is indicated. Work-up is largely normal. No signs of secondary pneumonia or other secondary bacterial infection. Patient will be discharged home with Robitussin-AC as well as albuterol inhaler to help with her cough. Counseled on return precautions. Patient and verbalized agreement and understand this plan. Patient discharged home in stable condition. Lab Data Attestation: I reviewed the patient's lab results. Labs: Laboratory Results - last 24 hr 12/29/20 12/29/20 12/29/20 09:50 09:50 09:50 WBC 9.7 RBC 4.71 Hgb 13.4 Hct 41.2 MCV 87.5 MCH 28.5 MCHC 32.5 RDW Std Deviation 38.5 RDW Coeff of Alanis 11.9 Plt Count 278 MPV 9.2 Immature Gran % (Auto) 0.300 Neut % (Auto) 75.8 H Lymph % (Auto) 14.5 L Day % (Auto) 8.0 Eos % (Auto) 1.1 Baso % (Auto) 0.3 Absolute Neuts (auto) 7.3 Absolute Lymphs (auto) 1.40 Nucleated RBC % 0 D-Dimer Quant (PE/DVT) 0.44 Sodium 138 Potassium 3.7 Chloride 104 Carbon Dioxide 27.0 Anion Gap 7 BUN 8 Creatinine 0.90 Estim Creat Clear Calc 66.90 Est GFR (MDRD) Af Amer 84 Est GFR (MDRD) Non-Af 70 BUN/Creatinine Ratio 8.9 L Glucose 136 H Lactic Acid Calcium 9.1 Total Bilirubin 0.50 AST 25 ALT 40 Alkaline Phosphatase 160 H Troponin I High Sens 6 Total Protein 7.3 Albumin 3.2 Globulin 4.1 Albumin/Globulin Ratio 0.8 L 12/29/20 09:50 WBC RBC Hgb Hct MCV MCH MCHC RDW Std Deviation RDW Coeff of Alanis Plt Count MPV Immature Gran % (Auto) Neut % (Auto) Lymph % (Auto) Day % (Auto) Eos % (Auto) Baso % (Auto) Absolute Neuts (auto) Absolute Lymphs (auto) Nucleated RBC % D-Dimer Quant (PE/DVT) Sodium Potassium Chloride Carbon Dioxide Anion Gap BUN Creatinine Estim Creat Clear Calc Est GFR (MDRD) Af Amer Est GFR (MDRD) Non-Af BUN/Creatinine Ratio Glucose Lactic Acid 1.4 Calcium Total Bilirubin AST ALT Alkaline Phosphatase Troponin I High Sens Total Protein Albumin Globulin Albumin/Globulin Ratio Radiography Chest X-Ray - ED: 1 View, Read by ED Physician, Read by Radiologist and Normal Diagnostic Testing: Radiology Impression Chest X-Ray 12/29/20 09:11 IMPRESSION: Normal x-ray examination of the chest. Electronically Signed: Carmine Summers MD at 9:38 EDT , Service support , Rhythm Strip Rhythm Strip: Sinus Tach Rate: 102 Ectopy: None EKG Initial EKG: Attestation: I personally reviewed and interpreted this EKG as follows: Interpretation: Sinus Tachycardia Comments: Sinus tachycardia rate of 102 Normal axis Normal intervals Normal ST segments No change prior to prior EKG on 10/10/2020 Discharge Plan Triage Chief Complaint: Cough Other Complaint: Cold Sx ED Provider: Anamaria Ferguson Dx/Rx/DC Orders Clinical Impression: Bronchitis due to 2019-nCoV Instructions: ED Bronchitis, No Antibiotic (Adult) Prescriptions: New albuterol sulfate [Ventolin HFA] 90 mcg/actuation HFA aerosol inhaler 1 - 2 puff inhalation Q4H PRN PRN (Reason: cough) Qty: 1 RF: 0 codeine-guaifenesin 10-200 mg/5 mL liquid 5 ml PO Q6H PRN (Reason: cough) Qty: 473 RF: 0 No Action cholecalciferol (vitamin D3) 2,000 unit capsule 2,000 unit PO ONCE RF: 0 ascorbic acid (vitamin C) 1,000 mg tablet 1 g PO DAILY RF: 0 cetirizine [Zyrtec] 10 mg tablet 10 mg PO DAILY PRN (Reason: Allergy Symptoms) RF: 0 lisinopril 20 tablet 20 mg PO DAILY RF: 0 famotidine 20 mg tablet 20 mg PO QHS PRN (Reason: Acid Reflux) RF: 0 fluticasone propionate 50 mcg/actuation spray,suspension 2 spray INTRANASAL DAILY RF: 0 aspirin 81 mg tablet,chewable 81 mg PO DAILY Qty: 30 RF: 0 fluoxetine 20 mg capsule 10 mg PO DAILY RF: 0 rosuvastatin 40 mg tablet 40 mg PO QHS Qty: 90 RF: 0 Primary Care Provider: Sean Salamanca Referrals: Sean Salamanca MD [Primary Care Provider] - Disposition Disposition: Home, Self Care
[2020-12-29 09:55] VITALS: BP 142/91; PULSE 107; RESP 18; TEMP 36.8; O2SAT 93
[2020-12-29 09:58] LABS: Absolute Neutrophil Count 7.3 X10^3/uL (2.0-7.7); Basophil# 0.03 X10^3/uL; Basophil% 0.3 % (0-1); Eosinophil# 0.11 X10^3/uL; Eosinophils% 1.1 % (0-5); Hematocrit 41.2 % (37-47); Hemoglobin 13.4 g/dL (12.0-15.0); Lymphocyte % 14.5 % (19-41); Mean Corp Hgb Conc 32.5 g/dL (32-36); Mean Corpuscular Hgb 28.5 pg (27.0-32.0); Mean Corpuscular Volume 87.5 fL (81-99); Mean Platelet Vol. 9.2 fl (6.2-12.0); Monocyte# 0.77 X10^3/uL; NRBC Flagged by Analyzer 0 % (0-5); Neutrophil # 7.33 X10^3/uL (2.7-7.7); Neutrophil % 75.8 % (47-70); Platelet Count 278 K/mm3 (150-450); RBC Distribution Width CV 11.9 % (11.6-14.6); RBC Distribution Width SD 38.5 fl (35.1-43.9); Red Blood Count 4.71 M/mm3 (4.2-5.4); White Blood Count 9.7 K/mm3 (4.4-11.0)
[2020-12-29 10:00] VITALS: O2SAT 97
[2020-12-29 10:10] LABS: D-Dimer Quantitative (DVT/PE) 0.44 FEU/ug/m (0.27-0.49)
[2020-12-29 10:18] LABS: ALB/GLOB Ratio 0.8 RATIO (0.9-2.4); AST(SGOT) 25 U/L (15-37); Alanine Aminotransfer ALT/SGPT 40 U/L (13-56); Albumin, Serum 3.2 g/dL (3.2-5.0); Alkaline Phosphatase 160 U/L (45-117); Anion Gap 7 (5-15); BUN 8 mg/dL (7-18); BUN/Creat Ratio 8.9 RATIO (10-20); Calcium,Total 9.1 mg/dL (8.5-10.1); Chloride 104 mmol/L (98-107); EST Glomerular Filtration Rate 70 mL/min (>60); Est Glom Filt Rate - Afr Amer 84 mL/min (>60); Globulin 4.1 g/dL (2.2-4.2); Glucose 136 mg/dL (74-106); Potassium 3.7 mmol/L (3.5-5.1); Protein, Total 7.3 g/dL (6.4-8.2); Sodium Level 138 mmol/L (136-145); Troponin-I HS 6 pg/mL (3.0-54.0)
[2020-12-29 10:19] LABS: Lactic Acid 1.4 mmol/L (0.4-1.9)
[2020-12-29 11:27] VITALS: BP 114/76; PULSE 62; RESP 15; O2SAT 98
== END 2020-12-29 11:32 | disposition home or self-care (01) ==
PROVIDERS: Emergency Provider Emergency Medicine; PCP Internal Medicine
DX: U07.1 COVID-19 (principal); J40 Bronchitis, not specified as acute or chronic; E78.5 Hyperlipidemia, unspecified; I10 Essential (primary) hypertension; I34.1 Nonrheumatic mitral (valve) prolapse; Z79.82 Long term (current) use of aspirin; Z79.899 Other long term (current) drug therapy; Z86.73 Personal history of transient ischemic attack (TIA), and cerebral infarction without residual deficits
CPT/HCPCS: 71045; 80053; 83605; 84484; 85025; 85379; 87040; 93005; 99285; J7040; A4216

== ENCOUNTER 2021-01-23 09:30 | Outpatient (RCR) | payer OTHER, SELFPAY ==
[2020-10-13 00:06] VITALS: BMI 33.9
[2020-10-16 10:01] VITALS: BMI 33.9
--- NOTE | 2020-10-20 16:51 | HP.SP.AD ---
History - History Date of Eval: 10/20/20 Medical Diagnosis (from RX): Acute CVA Previous speech therapy: Yes Results: Speech therapy was consulted during Pt's admission at [facility] ([facility]) however not until 10/13/20, which was the Pt's date of d/c. Pt was unable to receive speech therapy while in the hospital d/t this. Other Relevant Medical History/Diagnoses/Surgery: Pt seen on this date for skilled cognitive-linguistic assessment s/p hospitalization for CVA. Per hospital H&P: Pt has a significant history of hypertension and hyperlipidemia who presented to [facility] ED 10/10/2020 with lightheadedness after a walk. She and her walked. Thereafter she went to the bathroom. After going to the bathroom she felt lightheaded. Associated with her symptoms were forgetfulness, lethargy, malaise, visual changes and headache. Her gave her some medication at home which helped with her headache. Patient symptoms started about 11 hours prior to presentation. 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 This was confirmed by her today. Prior to CVA Pt was managing her own medications, managing her finances, and was also driving - would like to be able to do these tasks again. Medications related to this diagnosis: Fluoxetine (Prozac) for anxiety. 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 Linguistic skills were evaluated using patient/family interview, skilled observation and informal evaluation through tasks completed by the patient. - Orientation Orientation: Person, Medical Diagnosis - Answer Yes/No Questions Simple: Mild - Follows Commands 1 Step: WFL 2 Step: WFL - Comments Comments: Pt oriented to her birthday, however was not able to identify her age - Pt benefited from min A logical cue to report age. Pt presented w/flat affect on today's date. Pt's reports this is abnormal for her, however her dosage for Fluoxetine was recently increased, so she is still adjusting to the change. reports he would prefer her to be on a lower dosage as she sometimes just 'sits and stares.' - Repetition Words: WFL - Recall Comments: Pt unable to recall events leading up to or following her stroke. CLQT - CLQT CLQT Administered: Yes CLQT: Cognitive Linguistic Quick Test (CLQT) is a criterion - referenced assessment designed for adults between the ages of 18 and 89 with known or suspected neurological dysfuntions. The CLQT is to assess strength and weaknesses in five cognitive domains. Severity ratings are within normal limits, mild, moderate, severe deficits. The subtests are as follows: Date: 10/20/20 - Attention Attention: Severe - Memory Memory: Severe - Executive Functions Executive Functions: Severe - Language Language: Severe - Visuospatial Skills Visuospatial Skills: Severe - Composite Severity Rating Composite Severity Rating: Severe - Clock Drawing Severity Rating Clock Drawing Severity Rating: Severe - CLQT Comments Performance Pt presents with severe cognitive-linguistics based on today's evaluation, which is far from her baseline functioning. 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 Pt presents w/R peripheral visual deficits per self report and . However visit to armhole baster hand revealed no damage to the eye itself. Will continue to probe whether visual or R neglect are contributing to Pt's performance. Plan - Plan Plan: Will recommend Pt for weekly outpatient speech therapy to address severe cognitive-linguistic impairment characterized by deficits in short-term memory, word retrieval, executive functioning, attention, problem solving/reasoning, and safety awareness. Pt would benefit from training in compensatory strategies for recall and word retrieval, as well as cognitive training to improve cognitive functioning. Without skilled ST services, the Pt is at high risk for decreased independence completing daily living tasks she was able to perform prior to her CVA. - Recommendations MBS: No Treatment Warranted: Yes - Frequency Frequency: 1x/Week Duration: 6 Months Visits in this POC: 24 - Prognosis Prognosis: Good - Goals that are Established: Determination:: Goals will be added/modified as deemed necessary and appropriate. Therapy will be discontinued when results of re-evaluation indicate therapy is no longer needed or lack of progress has been documented. - Goal #1-5 Goal #1: Pt will complete basic to mod complex sustained and alternating attention tasks with 80% acc given min A cues across 3 measured opportunities. Goal #2: Pt will complete basic to mod complex confrontation, convergent, and divergent naming tasks with 90% acc independently across 3 measured opportunities to improve word retrieval. Goal #3: Pt will complete basic to mod complex planning, organizing, and sequencing tasks with 80% acc given min cues across 3 measured opportunities. Goal #4: Pt will complete basic to mod complex immediate, short-term, and working memory tasks with 80% acc given min cues across 3 measured opportunities. Goal #5: Pt will complete basic to mod complex functional problem solving/reasoning, money/math/time concepts, and safety awareness tasks with 80% acc given min cues across 3 measured opportunities. Education - Patient has Indicated that the Following Identified Educational Needs: Cognitively Impaired - Patient Instruction Patient Education: Diagnosis, Treatment Plan, Goals, Safety Precautions, Home Exercise Program Person Taught: Patient, Significant Other Teaching Method: Discussion, Demonstration Response to teaching: Return demonstration, Verbalize understanding
--- NOTE | 2020-12-22 13:22 | HP.SP.ADRE ---
Previous/Current Goals - Goals 1-5 Previous Goal #1: Pt will complete basic to mod complex sustained and alternating attention tasks with 80% acc given min A cues across 3 measured opportunities. Goal 1 Status: GOAL MET: Pt completed alternating attention task via determining 10 differences between two pictures w/100% acc I. Pt benefits from use of anchor line during reading/scanning tasks as a compensatory strategy for R visual deficits. Previous Goal #2: Pt will complete basic to mod complex confrontation, convergent, and divergent naming tasks with 90% acc independently across 3 measured opportunities to improve word retrieval. Goal 2 Status: PROGRESSING: Pt completes divergent naming task via category matrix w/initial letter restriction w/100% acc I naming 1 per category, 77% acc naming 2 per category. Pt completes convergent naming task via identifying target words when given 4 clue words w/80% acc I and benefited from supervision to improve acc 93% and min A semantic cues to improve acc to 100%. Previous Goal #3: Pt will complete basic to mod complex planning, organizing, and sequencing tasks with 80% acc given min cues across 3 measured opportunities. Goal 3 Status: GOAL MET: Pt completed mod complex planning, organizing, sequencing and problem solving/reasoning task via writing checks w/100% acc independently. Pt functional in sequencing steps to write checks and independently double-checked names and dollar amounts. Pt completed map construction activity w/70% acc independently and benefited from supervision to improve to 80% acc and min logical cues to improve acc to 85% and mod-max logical and visual cues to improve acc to 100%. Previous Goal #4: Pt will complete basic to mod complex immediate, short-term, and working memory tasks with 80% acc given min cues across 3 measured opportunities. Goal 4 Status: PROGRESSING: Direct education provided re: the WRAP (write, repeat, associate, picture) memory strategy along w/applicable examples to Pt's life and handout provided. In following session, Pt completed short-term memory task via recall of WRAP strategy w/0% acc I and benefited from min-mod semantic cues to improve acc to 100%. Pt completed immediate memory task via recall of retaught WRAP strategies w/25% acc I and benefited from min A semantic cues to improve acc to 100%. Across a 5-15 min delay, Pt recalled 25-75% of strategies and benefited from min A semantic cues to improve acc to 100%. Pt completed immediate memory task via shape recall from a field of 4 w/100 acc w/no distractor, and 50-100% acc given a 20 sec distractor. Previous Goal #5: Pt will complete basic to mod complex functional problem solving/reasoning, money/math/time concepts, and safety awareness tasks with 80% acc given min cues across 3 measured opportunities. Goal 5 Status: GOAL MET: Pt completes mod complex functional money task via balancing a check register w/ 80% acc independently and benefited from min A visual and logical cues to improve acc to 100%. Pt completed basic money task via calculating bills/coin totals w/83% acc I and benefited from supervision to improve acc to 100%. Pt completed basic time task via determining time wksht w/91% acc I and benefited from supervision to improve acc to 100%. History - History Date of Eval: 10/20/20 Medical Diagnosis (from RX): Acute CVA Previous speech therapy: Yes Results: Speech therapy was consulted during Pt's admission at [facility] ([facility]) however not until 10/13/20, which was the Pt's date of d/c. Pt was unable to receive speech therapy while in the hospital d/t this. Other Relevant Medical History/Diagnoses/Surgery: Pt seen on 10/20/20 for skilled cognitive-linguistic assessment s/p hospitalization for CVA. Per hospital H&P: Pt has a significant history of hypertension and hyperlipidemia who presented to [facility] ED 10/10/2020 with lightheadedness after a walk. She and her walked. Thereafter she went to the bathroom. After going to the bathroom she felt lightheaded. Associated with her symptoms were forgetfulness, lethargy, malaise, visual changes and headache. Her gave her some medication at home which helped with her headache. Patient symptoms started about 11 hours prior to presentation. MRI 10/11/2020 revealed left VEHICLE FUEL SYSTEMS CONVERTER territory acute moderate extent infarct and moderately severe chronic white matter ischemic disease. This was confirmed by her today. Prior to CVA Pt was managing her own medications, managing her finances, and was also driving - would like to be able to do these tasks again. Medications related to this diagnosis: Fluoxetine (Prozac) for anxiety. 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 Linguistic skills were evaluated using patient/family interview, skilled observation and informal evaluation through tasks completed by the patient. - Orientation Orientation: Person, Medical Diagnosis - Answer Yes/No Questions Simple: Mild - Follows Commands 1 Step: WFL 2 Step: WFL - Comments Comments: Pt oriented to her birthday, however was not able to identify her age - Pt benefited from min A logical cue to report age. Pt presented w/flat affect on today's date. Pt's reports this is abnormal for her, however her dosage for Fluoxetine was recently increased, so she is still adjusting to the change. reports he would prefer her to be on a lower dosage as she sometimes just 'sits and stares.' - Repetition Words: WFL - Recall Comments: Pt unable to recall events leading up to or following her stroke. CLQT - CLQT CLQT Administered: Yes CLQT: Cognitive Linguistic Quick Test (CLQT) is a criterion - referenced assessment designed for adults between the ages of 18 and 89 with known or suspected neurological dysfuntions. The CLQT is to assess strength and weaknesses in five cognitive domains. Severity ratings are within normal limits, mild, moderate, severe deficits. The subtests are as follows: Date: 12/22/20 - Attention Attention: Severe - Memory Memory: Severe - Executive Functions Executive Functions: Severe - Language Language: Severe - Visuospatial Skills Visuospatial Skills: Severe - Composite Severity Rating Composite Severity Rating: Severe - Clock Drawing Severity Rating Clock Drawing Severity Rating: Severe - CLQT Comments Performance 10/20/20: Pt presents with severe cognitive-linguistics based on today's evaluation, which is far from her baseline functioning. 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 Pt presents w/R peripheral visual deficits per self report and . However visit to clinical services assistant revealed no damage to the eye itself. Will continue to probe whether visual or R neglect are contributing to Pt's performance. CLQT Re-Eval - Testing Results CLQT Test Comparison: 10/20/20: Domain Scores: Attention = 23/215 (SEVERE); Memory = 105/185 (SEVERE); Executive Functioning = 7/40 (SEVERE); Language = 19/37 (SEVERE); Visuospatial Skills = 19/105 (SEVERE); Clock Drawing = 4/13 (SEVERE) -------> 12/17/20: Domain Scores: Attention = 196/215 (WNL); Memory = 146/185 (MILD); Executive Functioning = 29/40 (WNL); Language = 28/37 (MILD); Visuospatial Skills = 93/105 (WNL); Clock Drawing = 10/13 (MILD). Plan - Plan Plan: Will recommend Pt for weekly outpatient speech therapy to address mild cognitive-linguistic impairment characterized by deficits in immediate and short-term memory and word retrieval/naming skills. Pt would benefit from training in compensatory strategies for recall and word retrieval, as well as cognitive training to improve cognitive functioning. Without skilled ST services, the Pt is at high risk for decreased independence completing daily living tasks she was able to perform prior to her CVA. - Recommendations MBS: No Treatment Warranted: Yes - Frequency Frequency: 1x/Week Duration: 2 Weeks Visits in this POC: 2 d/t insurance - Prognosis Prognosis: Excellent - Goals that are Established: Determination:: Goals will be added/modified as deemed necessary and appropriate. Therapy will be discontinued when results of re-evaluation indicate therapy is no longer needed or lack of progress has been documented. - Goal #1-5 Goal #1: Pt will complete basic to mod complex confrontation, convergent, and divergent naming tasks with 90% acc independently across 3 measured opportunities to improve word retrieval. Goal #2: Pt will complete basic to mod complex immediate, short-term, and working memory tasks with 80% acc given min cues across 3 measured opportunities.
--- NOTE | 2021-02-25 16:29 | HP.SP.DC_ITS ---
ST Discharge Summary - Discharged: Discharge: Pt was seen for initial cognitive evaluation at [facility] on 10/20/20 s/p CVA. Pt attended 10 additional sessions following initial evaluation to target attention, immediate and short- term memory, problem solving/reasoning, executive functioning, and safety awareness. Following Pt?s success w/tasks during therapy, current level of cognitive function, and self-report of limited difficulty w/home activities, Pt deemed appropriate for d/c from speech therapy at this time. Pt utilizing all 10 visits given from her insurance. 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 Pt discharged from speech therapy caseload on this date, 02/25/21. Thank you for allowing me to participate the care of your Pt. Will reevaluate at Pt?s request following script from physician.
== END 2021-01-23 19:00 | disposition home or self-care (01) ==
LOC: SP 09:30
PROVIDERS: PCP Internal Medicine; Visit Provider Internal Medicine
DX: I69.318 Other symptoms and signs involving cognitive functions following cerebral infarction (principal)
CPT/HCPCS: 92507; 92523

== ENCOUNTER → 2021-01-26 09:07 | Outpatient (CLI) | payer OTHER, SELFPAY ==
[2021-01-26 12:08] LABS: Absolute Lymphocyte Count 2.36 X10^3/uL (0.83-4.51); Absolute Neutrophil Count 4.1 X10^3/uL (2.0-7.7); Basophil# 0.08 X10^3/uL; Eosinophil# 0.46 X10^3/uL; Eosinophils% 5.9 % (0-5); Hematocrit 42.3 % (37-47); Hemoglobin 13.6 g/dL (12.0-15.0); Lymphocyte # 2.36 X10^3/ul (0.83-4.51); Lymphocyte % 30.3 % (19-41); Mean Corp Hgb Conc 32.2 g/dL (32-36); Mean Corpuscular Hgb 28.3 pg (27.0-32.0); Mean Corpuscular Volume 88.1 fL (81-99); Mean Platelet Vol. 9.9 fl (6.2-12.0); Monocyte# 0.81 X10^3/uL; Monocyte% 10.4 % (0-10); NRBC Flagged by Analyzer 0 % (0-5); Neutrophil # 4.06 X10^3/uL (2.7-7.7); Platelet Count 292 K/mm3 (150-450); RBC Distribution Width SD 42.3 fl (35.1-43.9); White Blood Count 7.8 K/mm3 (4.4-11.0)
[2021-01-26 12:18] LABS: Albumin, Serum 3.6 g/dL (3.2-5.0); BUN 16 mg/dL (7-18); BUN/Creat Ratio 16.9 RATIO (10-20); Calcium,Total 9.5 mg/dL (8.5-10.1); Chloride 104 mmol/L (98-107); Creatinine, Serum 0.95 mg/dL (0.55-1.02); EST Glomerular Filtration Rate 65 mL/min (>60); Est Glom Filt Rate - Afr Amer 79 mL/min (>60); Glucose 88 mg/dL (74-106); Phosphorus 5.1 mg/dL (2.5-4.9); Potassium 4.3 mmol/L (3.5-5.1); Sodium Level 139 mmol/L (136-145)
[2021-01-26 12:23] LABS: Vitamin D,25 Hydroxy 41.5 ng/mL
[2021-01-26 12:30] LABS: Microalbumin:Creatinine Ratio 54.5 mg/g CRE (<30 mg/g CRE); Protein, Urine (Random) < 6.0 mg/dL (<11.9)
[2021-01-26 12:40] LABS: PTHIN 39.4 pg/mL (18.4-80.1)
== END ==
LOC: BMS.EMR 09:08 → BIMLAB 01-27 08:53
PROVIDERS: PCP Internal Medicine; Visit Provider Internal Medicine
DX: N18.31 Chronic kidney disease, stage 3a (principal)
CPT/HCPCS: 36415; 80069; 82043; 82306; 82570; 83970; 84156; 85025

== ENCOUNTER → 2021-02-17 16:15 | Outpatient (CLI) | payer OTHER, SELFPAY ==
[2021-02-17 16:51] LABS: Hematocrit 42.1 % (37-47); Hemoglobin 13.6 g/dL (12.0-15.0); Mean Corp Hgb Conc 32.3 g/dL (32-36); Mean Corpuscular Hgb 28.3 pg (27.0-32.0); Mean Corpuscular Volume 87.7 fL (81-99); Mean Platelet Vol. 9.6 fl (6.2-12.0); Platelet Count 282 K/mm3 (150-450); RBC Distribution Width CV 12.9 % (11.6-14.6); RBC Distribution Width SD 41.7 fl (35.1-43.9); White Blood Count 10.3 K/mm3 (4.4-11.0)
[2021-02-17 17:11] LABS: Microalbumin,Random Urine 24.7 mg/L (NO RANGE EST.); Microalbumin:Creatinine Ratio 55.3 mg/g CRE (<30 mg/g CRE); Protein, Urine (Random) < 6.0 mg/dL (<11.9); Protein:Creat Ratio 123 mg/g CRE (0-200)
[2021-02-17 17:16] LABS: Albumin, Serum 3.7 g/dL (3.2-5.0); BUN 16 mg/dL (7-18); BUN/Creat Ratio 15.7 RATIO (10-20); Calcium,Total 9.4 mg/dL (8.5-10.1); Chloride 106 mmol/L (98-107); Creatinine, Serum 1.02 mg/dL (0.55-1.02); EST Glomerular Filtration Rate 60 mL/min (>60); Est Glom Filt Rate - Afr Amer 72 mL/min (>60); Glucose 84 mg/dL (74-106); Phosphorus 5.3 mg/dL (2.5-4.9); Potassium 4.1 mmol/L (3.5-5.1); Sodium Level 140 mmol/L (136-145)
[2021-02-17 17:20] LABS: Vitamin D,25 Hydroxy 44.5 ng/mL
[2021-02-18 09:56] LABS: PTHIN 28.6 pg/mL (18.4-80.1)
[2021-02-18 11:40] LABS: ALB/GLOB Ratio 1.1 RATIO (0.9-2.4); AST(SGOT) 29 U/L (15-37); Alanine Aminotransfer ALT/SGPT 48 U/L (13-56); Alkaline Phosphatase 124 U/L (45-117); Bilirubin, Direct 0.15 mg/dL (0.00-0.30); Globulin 3.5 g/dL (2.2-4.2); Protein, Total 7.2 g/dL (6.4-8.2)
== END ==
PROVIDERS: PCP Internal Medicine; Referring Provider Pediatrics Pediatric Nephrology; Visit Provider Pediatrics Pediatric Nephrology
DX: N18.31 Chronic kidney disease, stage 3a (principal); Q61.3 Polycystic kidney, unspecified
CPT/HCPCS: 36415; 80069; 82043; 82247; 82248; 82306; 82570; 83970; 84075; 84156; 84450; 84460; 85027

== ENCOUNTER → 2021-03-16 16:04 | Outpatient (CLI) | payer OTHER, SELFPAY ==
[2021-03-18 09:42] LABS: Complement C3 175 mg/dL (82-167)
== END ==
PROVIDERS: PCP Internal Medicine; Visit Provider Nurse Practitioner Family
DX: D84.1 Defects in the complement system (principal); I67.9 Cerebrovascular disease, unspecified
CPT/HCPCS: 36415; 86160

== ENCOUNTER 2021-04-15 16:05 | Outpatient (CLI) | payer OTHER, SELFPAY ==
[2021-04-15 16:30] LABS: Hematocrit 39.1 % (37-47); Hemoglobin 12.6 g/dL (12.0-15.0); Mean Corp Hgb Conc 32.2 g/dL (32-36); Mean Corpuscular Hgb 27.4 pg (27.0-32.0); Mean Platelet Vol. 9.4 fl (6.2-12.0); Platelet Count 268 K/mm3 (150-450); RBC Distribution Width SD 40.2 fl (35.1-43.9); White Blood Count 10.2 K/mm3 (4.4-11.0)
[2021-04-15 16:50] LABS: Albumin, Serum 3.6 g/dL (3.2-5.0); BUN 22 mg/dL (7-18); BUN/Creat Ratio 21.6 RATIO (10-20); Calcium,Total 9.4 mg/dL (8.5-10.1); Chloride 105 mmol/L (98-107); Creatinine, Serum 1.02 mg/dL (0.55-1.02); EST Glomerular Filtration Rate 60 mL/min (>60); Est Glom Filt Rate - Afr Amer 72 mL/min (>60); Glucose 92 mg/dL (74-106); Phosphorus 5.1 mg/dL (2.5-4.9); Potassium 4.2 mmol/L (3.5-5.1); Sodium Level 139 mmol/L (136-145)
[2021-04-15 16:57] LABS: Microalbumin,Random Urine 60.8 mg/L (NO RANGE EST.); Microalbumin:Creatinine Ratio 57.9 mg/g CRE (<30 mg/g CRE); Protein, Urine (Random) 20.8 mg/dL (<11.9); Protein:Creat Ratio 198 mg/g CRE (0-200)
[2021-04-16 08:42] LABS: PTHIN 34.1 pg/mL (18.4-80.1)
== END 2021-04-15 23:59 | disposition short-term general hospital (02) ==
LOC: BIMLAB 16:05
PROVIDERS: PCP Internal Medicine; Referring Provider Pediatrics Pediatric Nephrology; Visit Provider Pediatrics Pediatric Nephrology
DX: N18.31 Chronic kidney disease, stage 3a (principal)
CPT/HCPCS: 36415; 80069; 82043; 82306; 82570; 83970; 84156; 85027

== ENCOUNTER → 2021-09-14 | Outpatient (CLI) | payer OTHER, SELFPAY ==
--- NOTE | 2021-09-14 08:58 | US_ITS ---
STUDY: RENAL ULTRASOUND - COMPLETE REASON FOR EXAM: Female, 56 years old. PCK TECHNIQUE: Ultrasound evaluation of the kidneys was performed with real-time and static siddiqi-scale imaging. COMPARISON: Comparison is made with prior examination dated 10/13/2018. FINDINGS: RIGHT KIDNEY: with mild renal hypertrophy. The right kidney measures 14 cm x 5.8 cm x 6.5 cm. There is a normal cortex of the right kidney. The renal cortex measures 2.6 cm. Once again, multiple right renal cysts are seen. The largest cyst measures 6.5 cm x 5.5 cm x 5 cm. There are no right renal calculi. There is no right hydronephrosis. DISTAL RIGHT URETER: There is non-visualization of the distal right ureter. There is no demonstrated right ureterovesical junction calculus. There is a visualized right ureteral jet. LEFT KIDNEY: with mild renal hypertrophy. The left kidney measures 17.8 cm x 7.3 cm x 9.1 cm. There is a normal cortex of the left kidney. The renal cortex measures 2.1 cm. Once again, multiple renal cysts are seen. The largest cyst in the left kidney measures 5.7 cm by 6.1cm x 4.5 cm. There are no left renal calculi. There is no left hydronephrosis. DISTAL LEFT URETER: There is non-visualization of the distal left ureter. There is no demonstrated left ureterovesical junction calculus. There is a visualized left ureteral jet. BLADDER: The distended urinary bladder has a volume of 471 ml. There is a normal wall thickness of the distended urinary bladder. There is no demonstrated mass within the urinary bladder. There are no demonstrated bladder calculi. US/Kidney and Bladder IMPRESSION: Multiple bilateral renal cysts. The cysts have increased in size as compared to prior study. Electronically Signed: Carmine Summers MD at 14:57 EDT ,
== END | disposition home or self-care (01) ==
LOC: US 08:52
PROVIDERS: PCP Internal Medicine; Referring Provider Pediatrics Pediatric Nephrology; Visit Provider Pediatrics Pediatric Nephrology
DX: Q61.3 Polycystic kidney, unspecified (principal)
CPT/HCPCS: 76770

== ENCOUNTER → 2021-09-22 | Outpatient (CLI) | payer OTHER, SELFPAY ==
[2021-09-22 12:40] LABS: Cholesterol 147 mg/dL (200); High Density Lipoprotein 42 mg/dL; Triglycerides 115 mg/dL; Very Low Density Lipoprotein 23 mg/dL (5-40)
[2021-09-23 11:57] LABS: Complement C3 167 mg/dL (82-167)
== END | disposition home or self-care (01) ==
LOC: BIMLAB 08:07
PROVIDERS: PCP Internal Medicine; Visit Provider Nurse Practitioner Family
DX: D84.1 Defects in the complement system (principal); I67.9 Cerebrovascular disease, unspecified
CPT/HCPCS: 36415; 80061; 86160

== ENCOUNTER → 2021-10-21 | Outpatient (CLI) | payer OTHER, SELFPAY ==
[2021-10-21 12:50] LABS: ALB/GLOB Ratio 1.1 RATIO (0.9-2.4); AST(SGOT) 18 U/L (15-37); Alanine Aminotransfer ALT/SGPT 30 U/L (13-56); Albumin, Serum 3.9 g/dL (3.2-5.0); Alkaline Phosphatase 123 U/L (45-117); Anion Gap 8 (5-15); BUN 24 mg/dL (7-18); BUN/Creat Ratio 20.3 RATIO (10-20); Calcium,Total 9.5 mg/dL (8.5-10.1); Chloride 104 mmol/L (98-107); Creatinine, Serum 1.18 mg/dL (0.55-1.02); EST Glomerular Filtration Rate 50 mL/min (>60); Est Glom Filt Rate - Afr Amer 61 mL/min (>60); Globulin 3.5 g/dL (2.2-4.2); Glucose 105 mg/dL (74-106); Potassium 4.1 mmol/L (3.5-5.1); Protein, Total 7.4 g/dL (6.4-8.2); Sodium Level 139 mmol/L (136-145)
== END | disposition home or self-care (01) ==
LOC: BIMLAB 11:17
PROVIDERS: PCP Internal Medicine; Referring Provider Internal Medicine; Visit Provider Internal Medicine
DX: I10 Essential (primary) hypertension (principal)
CPT/HCPCS: 36415; 80053

== ENCOUNTER → 2022-03-24 | Outpatient (CLI) | payer OTHER, SELFPAY ==
[2022-03-24 10:53] LABS: Absolute Lymphocyte Count 2.64 X10^3/uL (0.83-4.51); Absolute Neutrophil Count 4.8 X10^3/uL (2.0-7.7); Basophil# 0.06 X10^3/uL; Basophil% 0.7 % (0-1); Eosinophil# 0.32 X10^3/uL; Eosinophils% 3.7 % (0-5); Hematocrit 43.1 % (37-47); Hemoglobin 13.6 g/dL (12.0-15.0); Lymphocyte # 2.64 X10^3/ul (0.83-4.51); Lymphocyte % 30.7 % (19-41); Mean Corp Hgb Conc 31.6 g/dL (32-36); Mean Corpuscular Hgb 28.2 pg (27.0-32.0); Mean Corpuscular Volume 89.2 fL (81-99); Mean Platelet Vol. 9.6 fl (6.2-12.0); Monocyte# 0.79 X10^3/uL; Monocyte% 9.2 % (0-10); NRBC Flagged by Analyzer 0 % (0-5); Neutrophil # 4.78 X10^3/uL (2.7-7.7); Neutrophil % 55.5 % (47-70); Platelet Count 337 K/mm3 (150-450); RBC Distribution Width CV 12.7 % (11.6-14.6); RBC Distribution Width SD 41.3 fl (35.1-43.9); Red Blood Count 4.83 M/mm3 (4.2-5.4); White Blood Count 8.6 K/mm3 (4.4-11.0)
[2022-03-24 11:27] LABS: AST(SGOT) 14 U/L (15-37); Alanine Aminotransfer ALT/SGPT 33 U/L (13-56); Albumin, Serum 3.5 g/dL (3.2-5.0); Alkaline Phosphatase 99 U/L (45-117); Anion Gap 6 (5-15); BUN 22 mg/dL (7-18); BUN/Creat Ratio 23.3 RATIO (10-20); Calcium,Total 9.1 mg/dL (8.5-10.1); Chloride 107 mmol/L (98-107); Creatinine, Serum 0.94 mg/dL (0.55-1.02); EST Glomerular Filtration Rate 65 mL/min (>60); Est Glom Filt Rate - Afr Amer 79 mL/min (>60); Globulin 3.6 g/dL (2.2-4.2); Glucose 83 mg/dL (74-106); Potassium 4.4 mmol/L (3.5-5.1); Protein, Total 7.1 g/dL (6.4-8.2); Sodium Level 138 mmol/L (136-145)
== END | disposition home or self-care (01) ==
LOC: BIMLAB 09:32
PROVIDERS: PCP Internal Medicine; Referring Provider Internal Medicine; Visit Provider Internal Medicine
DX: I10 Essential (primary) hypertension (principal)
CPT/HCPCS: 36415; 80053; 85025

== ENCOUNTER → 2022-04-02 | Outpatient (CLI) | payer OTHER, SELFPAY ==
--- NOTE | 2022-04-02 14:10 | RAD_ITS ---
STUDY: X-RAY CHEST REASON FOR EXAM: Female, 57 years old. Chest congestion and cough. TECHNIQUE: Frontal and lateral views of the chest. COMPARISON: December 29, 2020. FINDINGS: The lungs are clear and expanded. There is no demonstrated pleural abnormality. Normal size heart. Normal mediastinum and garth. Normal visualized pulmonary arteries. Normal visualized aortic arch and descending thoracic aorta. Normal visualized thoracic spine. Normal visualized ribs, clavicles, and shoulders. There is no demonstrated abnormality of the visualized soft tissue structures of the upper abdomen. RAD/Chest PA and Lateral IMPRESSION: No interval change and no acute or active cardiopulmonary disease. Electronically Signed: Jacinto Mauro, at 15:22 EST ,
[2022-04-02 15:33] LABS: Absolute Lymphocyte Count 2.93 X10^3/uL (0.83-4.51); Absolute Neutrophil Count 5.9 X10^3/uL (2.0-7.7); Basophil# 0.07 X10^3/uL; Basophil% 0.7 % (0-1); Eosinophil# 0.48 X10^3/uL; Eosinophils% 4.7 % (0-5); Hematocrit 42.4 % (37-47); Hemoglobin 13.2 g/dL (12.0-15.0); Lymphocyte # 2.93 X10^3/ul (0.83-4.51); Lymphocyte % 28.4 % (19-41); Mean Corp Hgb Conc 31.1 g/dL (32-36); Mean Corpuscular Hgb 27.8 pg (27.0-32.0); Mean Corpuscular Volume 89.5 fL (81-99); Mean Platelet Vol. 9.7 fl (6.2-12.0); Monocyte# 0.92 X10^3/uL; Monocyte% 8.9 % (0-10); NRBC Flagged by Analyzer 0 % (0-5); Neutrophil # 5.87 X10^3/uL (2.7-7.7); Neutrophil % 56.8 % (47-70); Platelet Count 244 K/mm3 (150-450); RBC Distribution Width CV 13.1 % (11.6-14.6); RBC Distribution Width SD 42.4 fl (35.1-43.9); Red Blood Count 4.74 M/mm3 (4.2-5.4); White Blood Count 10.3 K/mm3 (4.4-11.0)
== END | disposition home or self-care (01) ==
PROVIDERS: PCP Internal Medicine; Referring Provider Internal Medicine; Visit Provider Internal Medicine
DX: R09.89 Other specified symptoms and signs involving the circulatory and respiratory systems (principal); R05.9 Cough, unspecified
CPT/HCPCS: 71046; 85025; 87635; U0003; U0005

== ENCOUNTER → 2022-09-20 | Outpatient (CLI) | payer OTHER, SELFPAY ==
[2022-09-20 12:47] LABS: AST(SGOT) 23 U/L (15-37); Alanine Aminotransfer ALT/SGPT 39 U/L (13-56); Albumin, Serum 3.5 g/dL (3.2-5.0); Alkaline Phosphatase 126 U/L (45-117); Anion Gap 8 (5-15); BUN 18 mg/dL (7-18); BUN/Creat Ratio 16.7 RATIO (10-20); Calcium,Total 9.3 mg/dL (8.5-10.1); Chloride 105 mmol/L (98-107); Cholesterol 151 mg/dL (200); Creatinine, Serum 1.08 mg/dL (0.55-1.02); EST Glomerular Filtration Rate 56 mL/min (>60); Est Glom Filt Rate - Afr Amer 67 mL/min (>60); Globulin 3.6 g/dL (2.2-4.2); Glucose 126 mg/dL (74-106); High Density Lipoprotein 38 mg/dL; Phosphorus 3.8 mg/dL (2.5-4.9); Potassium 4.1 mmol/L (3.5-5.1); Protein, Total 7.1 g/dL (6.4-8.2); Sodium Level 138 mmol/L (136-145); Triglycerides 127 mg/dL; Very Low Density Lipoprotein 25 mg/dL (5-40)
[2022-09-20 12:52] LABS: Absolute Neutrophil Count 5.1 X10^3/uL (2.0-7.7); Basophil# 0.08 X10^3/uL; Basophil% 0.9 % (0-1); Eosinophil# 0.51 X10^3/uL; Eosinophils% 5.7 % (0-5); Hematocrit 45.8 % (37-47); Hemoglobin 14.4 g/dL (12.0-15.0); Mean Corp Hgb Conc 31.4 g/dL (32-36); Mean Corpuscular Volume 88.9 fL (81-99); Mean Platelet Vol. 9.6 fl (6.2-12.0); Monocyte# 0.63 X10^3/uL; NRBC Flagged by Analyzer 0 % (0-5); Neutrophil # 5.12 X10^3/uL (2.7-7.7); Platelet Count 274 K/mm3 (150-450); RBC Distribution Width CV 13.8 % (11.6-14.6); RBC Distribution Width SD 44.8 fl (35.1-43.9); Red Blood Count 5.15 M/mm3 (4.2-5.4)
[2022-09-20 13:28] LABS: Protein, Urine (Random) < 6.0 mg/dL (<11.9); Protein:Creat Ratio 112 mg/g CRE (0-200)
[2022-09-20 19:36] LABS: Microalbumin,Random Urine 15.9 mg/L (NO RANGE EST.); Microalbumin:Creatinine Ratio 32.9 mg/g CRE (<30 mg/g CRE)
[2022-09-21 15:42] LABS: Hemoglobin A1c 5.7 % (3.8-5.6)
== END | disposition home or self-care (01) ==
LOC: BIMLAB 08:15
PROVIDERS: PCP Internal Medicine; Visit Provider Pediatrics Pediatric Nephrology
DX: N18.31 Chronic kidney disease, stage 3a (principal); Z13.0 Encounter for screening for diseases of the blood and blood-forming organs and certain disorders involving the immune mechanism; R73.9 Hyperglycemia, unspecified; I12.9 Hypertensive chronic kidney disease with stage 1 through stage 4 chronic kidney disease, or unspecified chronic kidney disease; E78.5 Hyperlipidemia, unspecified
CPT/HCPCS: 36415; 80053; 80061; 82043; 82570; 83036; 84100; 84156; 85025

== ENCOUNTER → 2023-06-10 | Outpatient (CLI) | payer OTHER, SELFPAY ==
[2023-06-10 17:06] LABS: Hematocrit 43.1 % (37-47); Hemoglobin 13.6 g/dL (12.0-15.0); Mean Corp Hgb Conc 31.6 g/dL (32-36); Mean Corpuscular Hgb 27.9 pg (27.0-32.0); Mean Corpuscular Volume 88.5 fL (81-99); Mean Platelet Vol. 9.8 fl (6.2-12.0); Platelet Count 271 K/mm3 (150-450); RBC Distribution Width CV 13.2 % (11.6-14.6); RBC Distribution Width SD 42.9 fl (35.1-43.9); Red Blood Count 4.87 M/mm3 (4.2-5.4); White Blood Count 10.2 K/mm3 (4.4-11.0)
--- OUTSIDE RECORDS SUMMARY | 2023-06-10 17:20 | XMS RPT_ITS | CCD ---
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 Comment: Pt also had 2 Step- children [employer] History LMP: 10/29/2020 (Exact Date), Postmenopausal Age at Menarche: Age at First : Age at Menopause: [employer] History Comments: Sexual Activity: Yes; Male Contraception: No contraception data on record PAST MEDICAL HISTORY Diagnosis Date Allergic rhinitis, cause unspecified Allergic rhinitis Cerebrovascular accident (CVA) due to vascular occlusion (HCC) 10/16/2020 Mild, no anticoagulants Hypertension Mitral valve disorders(424.0) Other and unspecified hyperlipidemia Polycystic kidney PAST SURGICAL HISTORY Procedure Laterality Date DELIVERY ONLY 10/29/96 , low cervical COLONOSCOPY FLX DX W/COLLJ SPEC WHEN PFRMD 02/18/2017 [facility] DILATION & CURETTAGE DX&/THER NONOBSTETRIC 1996 Dilation & curettage FAMILY HISTORY Problem Relation Age of Onset Hypertension Father Coronary Artery Disease Father first RI/angioplasty age 40's -- MULTPLE interventions other (aortic anuerysm) Father age 38 other (polycystic kidney disease) Father other (brain anuerysm) Sister Cancer Maternal Grandmother ENDOMETRIAL CANCER Breast Cancer Paternal Grandmother other (Polycystic Kidney Disease) Paternal Aunt SOCIAL HISTORY Social History Tobacco Use Smoking status: Never Smokeless tobacco: Never Vaping Use Vaping Use: Never used Substance Use Topics Alcohol use: Yes Comment: occasionally- has wine periodically with dinner Drug use: No REVIEW OF SYSTEMS Abdomen: No abdominal pain, nausea, vomiting, diarrhea, or constipation. No bloating, early satiety, indigestion, or increased flatulence. Bladder: No dysuria, gross hematuria, urinary frequency, urinary urgency, or incontinence Breast: No breast lumps, nipple d/c, overlying skin changes, redness or skin retraction Allergies and current medication updated:Yes EXAM: BP 144/86 Ht 5' 5.5 (1.66m) Wt 228 lb (103.4kg) LMP 10/29/2020 BMI 37.35 kg/(m^2). GENERAL: pleasant, female in no apparent distress HEENT: Normocephalic, atraumatic, mucus membranes moist, and no lesions NECK: Supple, full range of motion, no adenopathy, and thyroid normal DERMATOLOGY: Normal, without lesions, non-icteric, and non-hirsute BREAST: soft, non-tender, symmetric, no dominant mass, normal nipple-areolar complex, no lymphadenopathy, and no nipple discharge CHEST: Normal inspiratory effort ABDOMEN: soft, non-tender, and no masses PELVIC: external genitalia normal, normal Bartholin's glands, urethra, [place]'s glands, no vulvar lesions, no cervical lesions, good vaginal support, physiologic discharge present, normal appearing perineal body and perianal region, atrophic changes pale epithelium BIMANUAL: uterus normal size, shape and consistency, no adnexal masses, and non-tender RECTOVAGINAL: deferred. NEURO: alert and oriented x3,exam grossly non-focal EXTREMITIES: normal ASSESSMENT/PLAN: 1) Health maintenance: Pap/HPV up to date. Mammogram ordered Colon cancer screening: up to date with screening 2) Follow up one year or sooner as needed Tha Reilly MD documented in this encounter [facility] 12-15-2021 Miscellaneous Notes Patient is scheduled for mammogram screening 03/01/22 (requested to be scheduled on that specific date). Please submit order prior to appointment. Thank you. documented in this encounter [facility] documented as of this encounter (statuses as of 12/21/2021) [facility]01-20-2014 History of Past illness Narrative* Problem Noted Date Resolved Date Hypothyroidism 04/23/2013 03/25/2016 Routine general medical exam ination at a health care facility 11/07/2009 05/11/2012 Overview: 11/07/2009, from Dr. Dinero Routine gynecological examination 11/07/2009 05/11/2012 Overview: [facility] for Prescription of Oral Cont raceptives 03/30/2005 05/11/2012 documented as of this encounter (statuses as of 05/24/2022) [facility] History of Past illness Narrative* Problem Noted Date Diagnosed Date Resolved Date Hypothyroidism 04/23/2013 03/25/2016 Routine general medical exam ination at a health care facility 11/07/2009 05/11/2012 Overview: 11/07/2009, from Dr. Dinero Routine gynecological examination 11/07/2009 05/11/2012 [facility]ptives 03/30/2005 05/11/2012 documented as of this encounter (statuses as of 02/06/2023) [facility] History of Past illness Narrative* Problem Noted Date Diagnosed Date Resolved Date Hypothyroidism 04/23/2013 03/25/2016 Routine general medical exam ination at a health care facility 11/07/2009 05/11/2012 Overview: 11/07/2009, from Dr. Dinero Routine gynecological examination 11/07/2009 05/11/2012 [facility] Oral Contraceptives 03/30/2005 05/11/2012 documented as of this encounter (statuses as of 05/24/2023) [facility] History of Past illness Narrative* Problem Noted Date Diagnosed Date Resolved Date Hypothyroidism 04/23/2013 03/25/2016 Routine general medical exam ination at a health care facility 11/07/2009 05/11/2012 Overview: 11/07/2009, from Dr. Dinero Routine gynecological examination 11/07/2009 05/11/2012 Overview: [facility] Counseling for Presc ription of Oral Contraceptives 03/30/2005 05/11/2012 documented as of this encounter (statuses as of 06/02/2023) [facility] note* Diagnosis Encounter for screening mammogram for malignant neoplasm of breast- Primary Other screening mammogram documented in this encounter [facility] note* Diagnosis Encounter for gynecological examination (general) (routine) without abnormal findings- Primary Encounter for screening mammogram for breast cancer documented in this encounter [facility] note* Diagnosis Encounter for screening mammogram for malignant neoplasm of breast Other screening mammogram documented in this encounter [facility] note* Diagnosis Encounter for gynecological examination (general) (routine) without abnormal findings- Primary Encounter for screening mammogram for breast cancer documented in this encounter [facility] note* Diagnosis Encounter for screening mammogram for breast cancer documented in this encounter [facility] for referral (narrative)* Diagnostic Procedure Only (Routine) - Pending Review Specialty Diagnoses / Procedures Referred By Brain abdullahi Referred To Contact [facility] Diagnoses Encounter for screening mammogram for malignant neoplasm of breast Procedures ARMANDO SCREENING SCREENING MAMMOGRAPHY BI 2-VIEW BREAST INC CAD Tha Reilly MD [address] [place], [place] [address] [place] [address] [facility] [address] [place] [id number] Referral ID Status Reason Start Date Expiration Date Visits Requested Visits Authorized [id number] Pending Review Auto-Generat ed Referral 12/21/2021 01/14/2023 1 1 [facility] (narrative)* Diagnostic Procedure Only (Routine) - Authorized Specialty Diagnoses / Procedures Referred By Brain abdullahi Referred To Contact [facility] Diagnoses Encounter for gynecological examination (general) (routine) without abnormal findings Encounter for screening mammogram for breast cancer Procedures ARMANDO SCREENING W MOMO SCREENING DIGITAL BREAST TOMOSYNTHESIS BI SCREENING MAMMOGRAPHY BI 2-VIEW BREAST INC CAD Tha Reilly MD [address] [place] [address] [facility] [address] [place] [address] Referral ID Status Reason Start Date Expiration Date Visits Requested Visits Authorized [id number] Authorized Auto-Generat ed Referral 05/24/2022 06/23/2023 1 1 [facility] for referral (narrative)* Diagnostic Procedure Only (Routine) - Closed Specialty Diagnoses / Procedures Referred By Brain abdullahi Referred To Contact [facility] Diagnoses Encounter for screening mammogram for malignant neoplasm of breast Procedures ARMANDO SCREENING SCREENING MAMMOGRAPHY BI 2-VIEW BREAST INC CAD Tha Reilly MD [address] [place] [address] [facility] [address] [place] [address] Referral ID Status Reason Start Date Expiration Date V isits Requested Visits Authorized [id number] Closed Auto-Generate d Referral 12/21/2021 01/14/2023 1 1 [facility] for referral (narrative)* Diagnostic Procedure Only (Routine) - Pending Review Specialty Diagnoses / Procedures Referred By Brain t Referred To Contact [facility] Diagnoses Encounter for screening mammogram for breast cancer Procedures ARMANDO SCREENING W MOMO SCREENING DIGITAL BREAST TOMOSYNTHESIS BI SCREENING MAMMOGRAPHY BI 2-VIEW BREAST INC CAD Mohini Greenberg APRN.[facility] [address] [place] [address] [facility] [address] [place] [address] Referral ID Status Reason Start Date Expiration Date Visits Requested Visits Authorized [id number] Pending Review Auto-Generat ed Referral 05/24/2023 06/22/2024 1 1 [facility] for referral (narrative)* Diagnostic Procedure Only (Routine) - Closed Specialty Diagnoses / Procedures Referred By Brain t Referred To Contact [facility] Diagnoses Encounter for screening mammogram for breast cancer Procedures ARMANDO SCREENING W MOMO SCREENING DIGITAL BREAST TOMOSYNTHESIS BI SCREENING MAMMOGRAPHY BI 2-VIEW BREAST INC CAD Mohini Greenberg APRN.[facility] [address] [place] [address] [facility] [address] [place] [address] Referral ID Status Reason Start Date Expiration Date V isits Requested Visits Authorized [id number] Closed Auto-Generate d Referral 05/24/2023 06/22/2024 1 1 [facility] for visit Narrative* Diagnostic Procedure Only (Routine) - Closed Specialty Diagnoses / Procedures Referred By Brain t Referred To Contact [facility] Diagnoses Encounter for screening mammogram for malignant neoplasm of breast Procedures ARMANDO SCREENING SCREENING MAMMOGRAPHY BI 2-VIEW BREAST INC CAD Tha Reilly MD [address] [place] [address] [facility] [address] [place] [address] Referral ID Status Reason Start Date Expiration Date V isits Requested Visits Authorized [id number] Closed Auto-Generate d Referral 12/21/2021 01/14/2023 1 1 [facility] for visit Narrative* Diagnostic Procedure Only (Routine) - Closed Specialty Diagnoses / Procedures Referred By Brain t Referred To Contact [facility] Diagnoses Encounter for screening mammogram for breast cancer Procedures ARMANDO SCREENING W MOMO SCREENING DIGITAL BREAST TOMOSYNTHESIS BI SCREENING MAMMOGRAPHY BI 2-VIEW BREAST INC CAD Mohini Greenberg APRN.[facility] [address] [place] [address] [facility] [address] [place] [address] Referral ID Status Reason Start Date Expiration Date V isits Requested Visits Authorized [id number] Closed Auto-Generate d Referral 05/24/2023 06/22/2024 1 1 [facility] Summary Purpose Family History No Family History Records FoundNo Family History Records FoundNo Family History Records Found Advance Directives No Advanced Directives Records FoundNo Advanced Directives Records FoundNo Advanced Directives Records Found Additional Source Comments INFORMATION SOURCE (unrecogn ized section and content) DATE CREATED AUTHOR AUTHOR'S ORGANIZ ATION 11/21/2020 [facility] DATE CREATED AUTHOR AUTHOR'S ORGANIZ ATION 06/04/2023 [facility] Source Comments (unrecognize d section and content) In the event this informatio n is protected by the Federal Confidentiality of Alcohol and Drug Abuse Patient Records regulations: The Federal rules restrict any use of the information to criminally investigate or prosecute any alcohol or drug abuse patient.[facility] the event this information is protected by the Federal Confidentiality of Alcohol and Drug Abuse Patient Records regulations: The Federal rules restrict any use of the information to criminally investigate or prosecute any alcohol or drug abuse patient.[facility] the event this information is protected by the Federal Confidentiality of Alcohol and Drug Abuse Patient Records regulations: The Federal rules restrict any use of the information to criminally investigate or prosecute any alcohol or drug abuse patient.[facility] the event this information is protected by the Federal Confidentiality of Alcohol and Drug Abuse Patient Records regulations: The Federal rules restrict any use of the information to criminally investigate or prosecute any alcohol or drug abuse patient.[facility] the event this information is protected by the Federal Confidentiality of Alcohol and Drug Abuse Patient Records regulations: The Federal rules restrict any use of the information to criminally investigate or prosecute any alcohol or drug abuse patient.[facility] Reason for Visit (unrecogniz ed section and content) Reason Comments Yearly Exam With Mammogram Reason Comments [facility] FOR RECORDS PERTAINING TO PATIENTS WHO ARE OR HAVE BEEN ENROLLED IN A CHEMICAL DEPENDENCY/SUBSTANCEABUSE PROGRAM, SOME INFORMATION MAY BE OMITTED. This clinical summary was aggregated from multiple sources. Caution should be exercised in using it in the provision of clinical care. This summary normalizes information from multiple sources, and as a consequence, information in this document may materially change the coding, format and clinical context of patient data. In addition, data may be omitted in some cases. CLINICAL DECISIONS SHOULD BE BASED ON THE PRIMARY CLINICAL RECORDS. [facility] [facility]. provides no warranty or guarantee of the accuracy or completeness of information in this document.
[2023-06-10 17:52] LABS: Albumin, Serum 3.6 g/dL (3.2-5.0); BUN 25 mg/dL (7-18); BUN/Creat Ratio 21.7 RATIO (10-20); Calcium,Total 8.9 mg/dL (8.5-10.1); Chloride 110 mmol/L (98-107); Creatinine, Serum 1.15 mg/dL (0.55-1.02); EST Glomerular Filtration Rate 52 mL/min (>60); Est Glom Filt Rate - Afr Amer 63 mL/min (>60); Glucose 75 mg/dL (74-106); Phosphorus 3.2 mg/dL (2.5-4.9); Potassium 4.1 mmol/L (3.5-5.1); Sodium Level 141 mmol/L (136-145)
[2023-06-10 18:02] LABS: Vitamin D,25 Hydroxy 35.4 ng/mL
[2023-06-10 18:17] LABS: PTHIN 79.3 pg/mL (18.4-80.1)
== END | disposition home or self-care (01) ==
LOC: BIMLAB 15:51
PROVIDERS: PCP Internal Medicine; Visit Provider Pediatrics Pediatric Nephrology
DX: N18.31 Chronic kidney disease, stage 3a (principal)
CPT/HCPCS: 36415; 80069; 82043; 82306; 82570; 83970; 84156; 85027

== ENCOUNTER → 2023-06-13 | Outpatient (CLI) | payer OTHER, SELFPAY ==
[2023-06-13 13:50] LABS: Microalbumin,Random Urine 27.2 mg/L (NO RANGE EST.); Microalbumin:Creatinine Ratio 23.4 mg/g CRE (<30 mg/g CRE); Protein, Urine (Random) 10.9 mg/dL (<11.9); Protein:Creat Ratio 94 mg/g CRE (0-200)
== END | disposition home or self-care (01) ==
LOC: LABSPEC 09:34
PROVIDERS: PCP Internal Medicine; Visit Provider Pediatrics Pediatric Nephrology
DX: N18.31 Chronic kidney disease, stage 3a (principal)
CPT/HCPCS: 82043; 82570; 84156

== ENCOUNTER → 2023-06-30 | Outpatient (CLI) | payer OTHER, SELFPAY ==
--- NOTE | 2023-06-30 15:18 | US_ITS ---
STUDY: RENAL ULTRASOUND - COMPLETE REASON FOR EXAM: Female, 58 years old. PCK TECHNIQUE: Ultrasound evaluation of the kidneys was performed with real-time and static siddiqi-scale imaging. COMPARISON: Comparison is made with prior study dated September 14, 2021. FINDINGS: RIGHT KIDNEY: with moderate renal hypertrophy. The right kidney measures 15.5 cm x 7.2 cm x 6.9 cm. There is a normal cortex of the right kidney. The renal cortex measures 2.1 cm. Once again, multiple renal cysts are seen. The largest cyst measures 6.5 cm x 5.5 cm x 4.6 cm. There are no right renal calculi. There is no right hydronephrosis. DISTAL RIGHT URETER: There is non-visualization of the distal right ureter. There is no demonstrated right ureterovesical junction calculus. There is a visualized right ureteral jet. LEFT KIDNEY: with moderate renal hypertrophy. The left kidney measures 17.7 cm x 7.4 cm x 7.7 cm. There is a normal cortex of the left kidney. The renal cortex measures 2.3 cm. Once again, multiple cysts are seen. The largest measures 6.9 cm x 6.3 cm x 5.5 cm. There are no left renal calculi. There is no left hydronephrosis. DISTAL LEFT URETER: There is non-visualization of the distal left ureter. There is no demonstrated left ureterovesical junction calculus. There is a visualized left ureteral jet. BLADDER: The distended urinary bladder has a volume of 448 ml. There is a normal wall thickness of the distended urinary bladder. There is no demonstrated mass within the urinary bladder. There are no demonstrated bladder calculi. US/Kidney and Bladder IMPRESSION: Bilateral hypertrophy of the kidneys with multiple bilateral renal cysts. There has been essentially no change. Electronically Signed: Carmine Summers MD at 10:39 EDT ,
== END | disposition home or self-care (01) ==
PROVIDERS: PCP Internal Medicine; Referring Provider Pediatrics Pediatric Nephrology; Visit Provider Pediatrics Pediatric Nephrology
DX: Q61.3 Polycystic kidney, unspecified (principal)
CPT/HCPCS: 76770

== ENCOUNTER → 2023-08-15 | Outpatient (CLI) | payer OTHER, SELFPAY ==
[2023-08-15 16:43] LABS: Hematocrit 40.9 % (37-47); Hemoglobin 13.1 g/dL (12.0-15.0); Mean Corpuscular Hgb 28.3 pg (27.0-32.0); Mean Corpuscular Volume 88.3 fL (81-99); Mean Platelet Vol. 9.4 fl (6.2-12.0); Platelet Count 260 K/mm3 (150-450); RBC Distribution Width CV 13.1 % (11.6-14.6); RBC Distribution Width SD 42.3 fl (35.1-43.9); Red Blood Count 4.63 M/mm3 (4.2-5.4); White Blood Count 9.1 K/mm3 (4.4-11.0)
[2023-08-15 16:59] LABS: AST(SGOT) 9 U/L (15-37); Alanine Aminotransfer ALT/SGPT 38 U/L (13-56); Albumin, Serum 3.5 g/dL (3.2-5.0); Alkaline Phosphatase 92 U/L (45-117); Anion Gap 5 (5-15); BUN 26 mg/dL (7-18); BUN/Creat Ratio 24.5 RATIO (10-20); Bilirubin, Direct 0.13 mg/dL (0.00-0.30); Calcium,Total 8.9 mg/dL (8.5-10.1); Chloride 106 mmol/L (98-107); Creatinine, Serum 1.06 mg/dL (0.55-1.02); EST Glomerular Filtration Rate 57 mL/min (>60); Est Glom Filt Rate - Afr Amer 69 mL/min (>60); Globulin 3.3 g/dL (2.2-4.2); Glucose 91 mg/dL (74-106); Phosphorus 3.9 mg/dL (2.5-4.9); Potassium 4.2 mmol/L (3.5-5.1); Protein, Total 6.8 g/dL (6.4-8.2); Sodium Level 139 mmol/L (136-145)
[2023-08-15 17:03] LABS: Vitamin D,25 Hydroxy 50.3 ng/mL
[2023-08-15 17:12] LABS: PTHIN 69.9 pg/mL (18.4-80.1)
[2023-08-15 17:18] LABS: Microalbumin,Random Urine 58.7 mg/L (NO RANGE EST.); Microalbumin:Creatinine Ratio 42.5 mg/g CRE (<30 mg/g CRE); Protein, Urine (Random) 19.6 mg/dL (<11.9); Protein:Creat Ratio 142 mg/g CRE (0-200)
== END | disposition home or self-care (01) ==
LOC: BIMLAB 15:29
PROVIDERS: PCP Internal Medicine; Visit Provider Pediatrics Pediatric Nephrology
DX: Q61.3 Polycystic kidney, unspecified (principal); N18.31 Chronic kidney disease, stage 3a
CPT/HCPCS: 36415; 80048; 80076; 82043; 82306; 82570; 83970; 84100; 84156; 85027

== ENCOUNTER → 2023-11-09 | Outpatient (CLI) | payer OTHER, SELFPAY ==
[2023-11-09 12:21] LABS: Erythrocyte Sedimentation Rate 14 mm/hr (0-30)
[2023-11-09 12:25] LABS: Absolute Lymphocyte Count 2.32 X10^3/uL (0.83-4.51); Basophil# 0.07 X10^3/uL; Eosinophil# 0.28 X10^3/uL; Eosinophils% 3.8 % (0-5); Hematocrit 43.6 % (37-47); Hemoglobin 14.3 g/dL (12.0-15.0); Lymphocyte # 2.32 X10^3/ul (0.83-4.51); Lymphocyte % 31.7 % (19-41); Mean Corp Hgb Conc 32.8 g/dL (32-36); Mean Corpuscular Hgb 28.4 pg (27.0-32.0); Mean Corpuscular Volume 86.7 fL (81-99); Mean Platelet Vol. 9.6 fl (6.2-12.0); Monocyte# 0.58 X10^3/uL; Monocyte% 7.9 % (0-10); NRBC Flagged by Analyzer 0 % (0-5); Neutrophil # 4.04 X10^3/uL (2.7-7.7); Neutrophil % 55.3 % (47-70); Platelet Count 235 K/mm3 (150-450); RBC Distribution Width CV 12.8 % (11.6-14.6); RBC Distribution Width SD 40.3 fl (35.1-43.9); Red Blood Count 5.03 M/mm3 (4.2-5.4); White Blood Count 7.3 K/mm3 (4.4-11.0)
[2023-11-09 13:24] LABS: Hemoglobin A1c 5.5 % (3.8-5.6)
[2023-11-09 15:44] LABS: ALB/GLOB Ratio 1.1 RATIO (0.9-2.4); AST(SGOT) 25 U/L (15-37); Alanine Aminotransfer ALT/SGPT 34 U/L (13-56); Albumin, Serum 3.8 g/dL (3.2-5.0); Alkaline Phosphatase 101 U/L (45-117); Anion Gap 5 (5-15); BUN 19 mg/dL (7-18); BUN/Creat Ratio 16.8 RATIO (10-20); Calcium,Total 9.3 mg/dL (8.5-10.1); Chloride 106 mmol/L (98-107); Cholesterol 149 mg/dL (200); Creatinine, Serum 1.13 mg/dL (0.55-1.02); EST Glomerular Filtration Rate 53 mL/min (>60); Est Glom Filt Rate - Afr Amer 64 mL/min (>60); Globulin 3.5 g/dL (2.2-4.2); Glucose 93 mg/dL (74-106); High Density Lipoprotein 39 mg/dL; Potassium 4.4 mmol/L (3.5-5.1); Protein, Total 7.3 g/dL (6.4-8.2); Rheumatoid Factor < 10.0 IU/mL (<15); Sodium Level 138 mmol/L (136-145); Triglycerides 162 mg/dL; Very Low Density Lipoprotein 32 mg/dL (5-40)
[2023-11-12 10:42] LABS: ANTINUCLEAR ANTIBODIES DIRECT Positive (Negative); Anti-Centromere B Ab <0.2 AI (0.0-0.9); Anti-Chromatin <0.2 AI (0.0-0.9); Anti-Jo <0.2 AI (0.0-0.9); Anti-Scleroderma-70 AB <0.2 AI (0.0-0.9); Anti-dsDNA Ab <1 IU/mL (0-9); CCP IgG Antibodies 6 units (0-19); RNP Ab <0.2 AI (0.0-0.9); SJOGREN'S Anti-SS-A test 1.2 AI (0.0-0.9); SJOGREN'S Anti-SS-B test < 0.2 AI (0.0-0.9); Smith Ab <0.2 AI (0.0-0.9)
== END | disposition home or self-care (01) ==
LOC: BIMLAB 11:28
PROVIDERS: PCP Internal Medicine; Referring Provider Internal Medicine; Visit Provider Internal Medicine
DX: M19.90 Unspecified osteoarthritis, unspecified site (principal); I10 Essential (primary) hypertension; R73.03 Prediabetes
CPT/HCPCS: 36415; 80053; 80061; 83036; 85025; 85652; 86038; 86200; 86225; 86235; 86431

== ENCOUNTER → 2023-11-25 | Outpatient (CLI) | payer OTHER, SELFPAY | END | disposition home or self-care (01) | LOC: SL 20:02 | PROVIDERS: PCP Internal Medicine; Referring Provider Internal Medicine; Visit Provider Internal Medicine | DX: G47.10 Hypersomnia, unspecified (principal) | CPT/HCPCS: 95810 ==

== ENCOUNTER 2023-11-28 15:27 | Outpatient (RCR) | payer OTHER, SELFPAY ==
[2023-11-28 16:52] LABS: AST(SGOT) 24 U/L (15-37); Alanine Aminotransfer ALT/SGPT 45 U/L (13-56); Albumin, Serum 3.6 g/dL (3.2-5.0); Alkaline Phosphatase 104 U/L (45-117); Bilirubin, Direct 0.09 mg/dL (0.00-0.30); Globulin 3.5 g/dL (2.2-4.2); Protein, Total 7.1 g/dL (6.4-8.2)
== END 2023-12-03 23:59 ==
LOC: BIMLAB 15:27
PROVIDERS: PCP Internal Medicine; Referring Provider Pediatrics Pediatric Nephrology; Visit Provider Pediatrics Pediatric Nephrology
DX: Q61.3 Polycystic kidney, unspecified
CPT/HCPCS: 36415; 80076

== ENCOUNTER 2023-12-12 10:59 | Outpatient (RCR) | payer OTHER, SELFPAY ==
[2023-12-12 12:19] LABS: AST(SGOT) 22 U/L (15-37); Alanine Aminotransfer ALT/SGPT 37 U/L (13-56); Albumin, Serum 3.5 g/dL (3.2-5.0); Alkaline Phosphatase 102 U/L (45-117); Globulin 3.3 g/dL (2.2-4.2); Protein, Total 6.8 g/dL (6.4-8.2)
== END 2024-01-02 23:59 ==
LOC: BIMLAB 10:59
PROVIDERS: PCP Internal Medicine; Referring Provider Pediatrics Pediatric Nephrology; Visit Provider Pediatrics Pediatric Nephrology
DX: Q61.3 Polycystic kidney, unspecified (principal)
CPT/HCPCS: 36415; 80076

== ENCOUNTER → 2023-12-23 | Outpatient (CLI) | payer OTHER, SELFPAY ==
[2023-12-23 11:30] LABS: EXAGEN MAILED SPECIMEN
[2023-12-23 12:08] LABS: Color, Urine Straw (Yellow); Glucose, Dipstick Normal (Normal); Ketone-Dipstick Negative (Negative); Leukocyte Esterase-Dipstick 500 /ul (Negative); Nitrite-Dipstick Negative (Negative); Occult Blood-Urine 50 /ul (Negative); Protein-Dipstick Negative (Negative); Specific Gravity, Urine 1.015 (1.002-1.030); Urine Bilirubin Dipstick Negative (Negative); Urine Clarity Clear (Clear); Urine Urobilinogen Normal (Normal); Urine pH 6.5 (5.0 - 8.0)
[2023-12-23 12:11] LABS: Erythrocyte Sedimentation Rate 24 mm/hr (0-30)
[2023-12-23 12:17] LABS: Absolute Lymphocyte Count 3.45 X10^3/uL (0.83-4.51); Absolute Neutrophil Count 5.7 X10^3/uL (2.0-7.7); Basophil# 0.09 X10^3/uL; Basophil% 0.8 % (0-1); Eosinophil# 0.54 X10^3/uL; Eosinophils% 4.9 % (0-5); Hematocrit 47.4 % (37-47); Hemoglobin 15.1 g/dL (12.0-15.0); Lymphocyte # 3.45 X10^3/ul (0.83-4.51); Lymphocyte % 31.3 % (19-41); Mean Corp Hgb Conc 31.9 g/dL (32-36); Mean Corpuscular Hgb 28.8 pg (27.0-32.0); Mean Corpuscular Volume 90.3 fL (81-99); Monocyte# 1.23 X10^3/uL; Monocyte% 11.1 % (0-10); NRBC Flagged by Analyzer 0 % (0-5); Neutrophil # 5.69 X10^3/uL (2.7-7.7); Neutrophil % 51.5 % (47-70); Platelet Count 299 K/mm3 (150-450); RBC Distribution Width CV 12.9 % (11.6-14.6); RBC Distribution Width SD 42.2 fl (35.1-43.9); Red Blood Count 5.25 M/mm3 (4.2-5.4)
[2023-12-23 12:52] LABS: AST(SGOT) 20 U/L (15-37); Alanine Aminotransfer ALT/SGPT 28 U/L (13-56); Albumin, Serum 3.9 g/dL (3.2-5.0); Alkaline Phosphatase 108 U/L (45-117); Anion Gap 7 (5-15); BUN 18 mg/dL (7-18); BUN/Creat Ratio 14.5 RATIO (10-20); Calcium,Total 9.6 mg/dL (8.5-10.1); Chloride 106 mmol/L (98-107); Creatinine, Serum 1.24 mg/dL (0.55-1.02); EST Glomerular Filtration Rate 47 mL/min (>60); Est Glom Filt Rate - Afr Amer 57 mL/min (>60); Globulin 3.9 g/dL (2.2-4.2); Glucose 84 mg/dL (74-106); Potassium 4.2 mmol/L (3.5-5.1); Protein, Total 7.8 g/dL (6.4-8.2); Sodium Level 139 mmol/L (136-145)
[2023-12-23 12:56] LABS: Protein, Urine (Random) < 6.0 mg/dL (<11.9)
[2023-12-23 13:12] LABS: Hepatitis B Surface Antibody Non-Reactive; Hepatitis B Surface Antigen Non-Reactive (Nonreactive); Hepatitis C Antibody Non-Reactive (Nonreactive)
== END | disposition home or self-care (01) ==
LOC: BIMLAB 10:25
PROVIDERS: PCP Internal Medicine; Referring Provider Internal Medicine Rheumatology; Visit Provider Internal Medicine Rheumatology
DX: M06.4 Inflammatory polyarthropathy (principal); M79.7 Fibromyalgia; R76.8 Other specified abnormal immunological findings in serum; M18.0 Bilateral primary osteoarthritis of first carpometacarpal joints
CPT/HCPCS: 36415; 80053; 81002; 82570; 84156; 85025; 85652; 86706; 86803; 87340

== ENCOUNTER 2024-01-09 15:38 | Outpatient (RCR) | payer OTHER, SELFPAY ==
[2024-01-09 16:56] LABS: AST(SGOT) 22 U/L (15-37); Alanine Aminotransfer ALT/SGPT 36 U/L (13-56); Albumin, Serum 3.8 g/dL (3.2-5.0); Alkaline Phosphatase 97 U/L (45-117); Bilirubin, Direct 0.11 mg/dL (0.00-0.30); Globulin 3.1 g/dL (2.2-4.2); Protein, Total 6.9 g/dL (6.4-8.2)
== END 2024-02-02 23:59 ==
LOC: BIMLAB 15:38
PROVIDERS: PCP Internal Medicine; Referring Provider Pediatrics Pediatric Nephrology; Visit Provider Pediatrics Pediatric Nephrology
DX: Q61.3 Polycystic kidney, unspecified (principal)
CPT/HCPCS: 36415; 80076

== ENCOUNTER 2024-02-06 15:24 | Outpatient (RCR) | payer OTHER, SELFPAY ==
[2024-02-06 16:56] LABS: AST(SGOT) 13 U/L (15-37); Alanine Aminotransfer ALT/SGPT 35 U/L (13-56); Albumin, Serum 3.7 g/dL (3.2-5.0); Alkaline Phosphatase 89 U/L (45-117); Bilirubin, Direct 0.09 mg/dL (0.00-0.30); Globulin 3.2 g/dL (2.2-4.2); Protein, Total 6.9 g/dL (6.4-8.2)
== END 2024-03-03 23:59 ==
LOC: BIMLAB 15:24
PROVIDERS: PCP Internal Medicine; Referring Provider Pediatrics Pediatric Nephrology; Visit Provider Pediatrics Pediatric Nephrology
DX: Q61.2 Polycystic kidney, adult type (principal)
CPT/HCPCS: 36415; 80076

== ENCOUNTER 2024-04-02 09:23 | Outpatient (RCR) | payer OTHER, SELFPAY ==
[2024-03-06 17:04] LABS: AST(SGOT) 20 U/L (15-37); Alanine Aminotransfer ALT/SGPT 39 U/L (13-56); Albumin, Serum 3.7 g/dL (3.2-5.0); Alkaline Phosphatase 93 U/L (45-117); Globulin 3.2 g/dL (2.2-4.2); Protein, Total 6.9 g/dL (6.4-8.2)
[2024-04-02 12:43] LABS: Absolute Lymphocyte Count 2.15 X10^3/uL (0.83-4.51); Absolute Neutrophil Count 3.1 X10^3/uL (2.0-7.7); Basophil# 0.07 X10^3/uL; Basophil% 1.1 % (0-1); Eosinophil# 0.41 X10^3/uL; Eosinophils% 6.5 % (0-5); Hematocrit 42.3 % (37-47); Hemoglobin 13.6 g/dL (12.0-15.0); Lymphocyte # 2.15 X10^3/ul (0.83-4.51); Mean Corp Hgb Conc 32.2 g/dL (32-36); Mean Corpuscular Hgb 28.4 pg (27.0-32.0); Mean Corpuscular Volume 88.3 fL (81-99); Monocyte# 0.54 X10^3/uL; Monocyte% 8.5 % (0-10); NRBC Flagged by Analyzer 0 % (0-5); Neutrophil # 3.14 X10^3/uL (2.7-7.7); Neutrophil % 49.6 % (47-70); Platelet Count 231 K/mm3 (150-450); RBC Distribution Width CV 12.4 % (11.6-14.6); Red Blood Count 4.79 M/mm3 (4.2-5.4); White Blood Count 6.3 K/mm3 (4.4-11.0)
[2024-04-02 13:32] LABS: ALB/GLOB Ratio 1.1 RATIO (0.9-2.4); AST(SGOT) 23 U/L (15-37); Alanine Aminotransfer ALT/SGPT 41 U/L (13-56); Albumin, Serum 3.6 g/dL (3.2-5.0); Alkaline Phosphatase 95 U/L (45-117); Anion Gap 6 (5-15); BUN 16 mg/dL (7-18); BUN/Creat Ratio 11.5 RATIO (10-20); Bilirubin, Direct 0.08 mg/dL (0.00-0.30); Calcium,Total 9.5 mg/dL (8.5-10.1); Chloride 109 mmol/L (98-107); Creatinine, Serum 1.39 mg/dL (0.55-1.02); EST Glomerular Filtration Rate 41 mL/min (>60); Est Glom Filt Rate - Afr Amer 50 mL/min (>60); Globulin 3.3 g/dL (2.2-4.2); Glucose 109 mg/dL (74-106); Potassium 4.2 mmol/L (3.5-5.1); Protein, Total 6.9 g/dL (6.4-8.2); Sodium Level 141 mmol/L (136-145)
== END 2024-04-03 23:59 ==
LOC: BIMLAB 09:23
PROVIDERS: Internal Medicine Rheumatology; PCP Internal Medicine; Referring Provider Pediatrics Pediatric Nephrology; Visit Provider Pediatrics Pediatric Nephrology
DX: Q61.3 Polycystic kidney, unspecified (principal); M06.4 Inflammatory polyarthropathy; Z79.899 Other long term (current) drug therapy; M79.7 Fibromyalgia; R76.8 Other specified abnormal immunological findings in serum; M18.0 Bilateral primary osteoarthritis of first carpometacarpal joints
CPT/HCPCS: 36415; 80053; 80076; 82248; 85025

== ENCOUNTER 2024-04-30 15:15 | Outpatient (RCR) | payer OTHER, SELFPAY ==
[2024-04-30 17:11] LABS: AST(SGOT) 19 U/L (15-37); Alanine Aminotransfer ALT/SGPT 41 U/L (13-56); Albumin, Serum 3.8 g/dL (3.2-5.0); Alkaline Phosphatase 101 U/L (45-117); Globulin 3.4 g/dL (2.2-4.2); Protein, Total 7.2 g/dL (6.4-8.2)
== END 2024-05-04 23:59 ==
LOC: BIMLAB 15:15
PROVIDERS: PCP Internal Medicine; Referring Provider Pediatrics Pediatric Nephrology; Visit Provider Pediatrics Pediatric Nephrology
DX: Q61.3 Polycystic kidney, unspecified (principal)
CPT/HCPCS: 36415; 80076

== ENCOUNTER 2024-05-29 10:21 | Outpatient (RCR) | payer OTHER, SELFPAY ==
[2024-05-28 16:46] LABS: Hematocrit 42.5 % (37-47); Hemoglobin 13.8 g/dL (12.0-15.0); Mean Corp Hgb Conc 32.5 g/dL (32-36); Mean Corpuscular Volume 89.3 fL (81-99); Platelet Count 249 K/mm3 (150-450); RBC Distribution Width CV 13.1 % (11.6-14.6); RBC Distribution Width SD 42.9 fl (35.1-43.9); Red Blood Count 4.76 M/mm3 (4.2-5.4); White Blood Count 10.1 K/mm3 (4.4-11.0)
[2024-05-28 17:25] LABS: PTHIN 86.6 pg/mL (18.4-80.1)
[2024-05-28 17:27] LABS: Vitamin D,25 Hydroxy 37.4 ng/mL
[2024-05-28 19:28] LABS: AST(SGOT) 24 U/L (15-37); Alanine Aminotransfer ALT/SGPT 36 U/L (13-56); Albumin, Serum 3.8 g/dL (3.2-5.0); Alkaline Phosphatase 99 U/L (45-117); Anion Gap 8 (5-15); BUN 19 mg/dL (7-18); BUN/Creat Ratio 13.4 RATIO (10-20); Bilirubin, Direct 0.11 mg/dL (0.00-0.30); Calcium,Total 9.3 mg/dL (8.5-10.1); Chloride 109 mmol/L (98-107); Creatinine, Serum 1.42 mg/dL (0.55-1.02); EST Glomerular Filtration Rate 40 mL/min (>60); Est Glom Filt Rate - Afr Amer 49 mL/min (>60); Globulin 3.1 g/dL (2.2-4.2); Glucose 115 mg/dL (74-106); Phosphorus 3.9 mg/dL (2.5-4.9); Potassium 4.2 mmol/L (3.5-5.1); Protein, Total 6.9 g/dL (6.4-8.2); Sodium Level 142 mmol/L (136-145)
[2024-05-30 00:23] LABS: Protein, Urine (Random) 7 mg/dL (<=12); Protein:Creat Ratio 120 mg/g CRE (0-200)
== END 2024-06-01 23:59 ==
LOC: BIMLAB 10:21
PROVIDERS: PCP Internal Medicine; Referring Provider Pediatrics Pediatric Nephrology; Visit Provider Pediatrics Pediatric Nephrology
DX: Q61.3 Polycystic kidney, unspecified (principal); N18.31 Chronic kidney disease, stage 3a
CPT/HCPCS: 36415; 80048; 80076; 82306; 82570; 83970; 84100; 84156; 85027

== ENCOUNTER 2024-06-25 11:09 | Outpatient (RCR) | payer OTHER, SELFPAY ==
[2024-06-25 12:50] LABS: Absolute Lymphocyte Count 2.31 X10^3/uL (0.83-4.51); Absolute Neutrophil Count 4.9 X10^3/uL (2.0-7.7); Basophil# 0.08 X10^3/uL; Basophil% 0.9 % (0-1); Eosinophil# 0.48 X10^3/uL; Eosinophils% 5.6 % (0-5); Hematocrit 41.8 % (37-47); Hemoglobin 13.5 g/dL (12.0-15.0); Lymphocyte # 2.31 X10^3/ul (0.83-4.51); Lymphocyte % 27.2 % (19-41); Mean Corp Hgb Conc 32.3 g/dL (32-36); Mean Corpuscular Hgb 28.8 pg (27.0-32.0); Mean Corpuscular Volume 89.3 fL (81-99); Mean Platelet Vol. 10.1 fl (6.2-12.0); Monocyte# 0.74 X10^3/uL; Monocyte% 8.7 % (0-10); NRBC Flagged by Analyzer 0 % (0-5); Neutrophil # 4.85 X10^3/uL (2.7-7.7); Neutrophil % 57.1 % (47-70); Platelet Count 234 K/mm3 (150-450); RBC Distribution Width CV 13.2 % (11.6-14.6); RBC Distribution Width SD 42.6 fl (35.1-43.9); Red Blood Count 4.68 M/mm3 (4.2-5.4); White Blood Count 8.5 K/mm3 (4.4-11.0)
[2024-06-25 15:29] LABS: ALB/GLOB Ratio 1.7 RATIO (0.9-2.4); AST(SGOT) 22 U/L (<=31); Alanine Aminotransfer ALT/SGPT 23 U/L (<=34); Albumin, Serum 4.2 g/dL (3.5-5.0); Alkaline Phosphatase 95 U/L (35-104); Anion Gap 12 (5-15); BUN 16 mg/dL (4-19); BUN/Creat Ratio 12.3 RATIO (10-20); Bilirubin, Direct 0.16 mg/dL (0.00-0.30); Calcium,Total 9.7 mg/dL (7.6-11.0); Carbon Dioxide 23.8 mmol/L (21.0-32.0); Chloride 108 mmol/L (98-108); Creatinine, Serum 1.27 mg/dL (0.70-1.20); EST Glomerular Filtration Rate 49 (>60); Globulin 2.5 g/dL (2.2-4.2); Glucose 91 mg/dL (70-99); Potassium 4.6 mmol/L (3.3-5.1); Protein, Total 6.7 g/dL (5.9-8.4); Sodium Level 143 mmol/L (133-145); Total Bilirubin 0.35 mg/dL (0.00-1.30)
[2024-06-26 13:03] LABS: Hemoglobin A1c 5.6 % (<=5.6)
== END 2024-07-02 23:59 ==
LOC: BIMLAB 11:09
PROVIDERS: Internal Medicine Rheumatology; PCP Internal Medicine; Referring Provider Pediatrics Pediatric Nephrology; Visit Provider Pediatrics Pediatric Nephrology
DX: Q61.3 Polycystic kidney, unspecified (principal); R73.03 Prediabetes
CPT/HCPCS: 36415; 80053; 82248; 83036; 85025

== ENCOUNTER → 2024-06-25 | Outpatient (CLI) | payer OTHER, SELFPAY ==
--- NOTE | 2024-06-25 12:47 | US_ITS ---
EXAM: US Retroperitoneal Limited, Renal CLINICAL INDICATION: POLYCYSTIC KIDNEY DISEASE TECHNIQUE: Real-time limited ultrasound of the retroperitoneum with image documentation. COMPARISON: No relevant prior studies available. FINDINGS: RIGHT KIDNEY: Multiple right renal cysts, largest measuring up to 6.5 cm. No stones. The right kidney measures 15.5 x 9.0 x 6.9 cm. LEFT KIDNEY: Left renal cysts, largest measuring up to 7.1 cm. No stones. The left kidney measures 15.3 x 8.7 x 7.1 cm. BLADDER: Urinary bladder appears normal. Prevoid volume 519 cc. US/Kidney and Bladder IMPRESSION: Multiple bilateral renal cysts. Reading [facility]
== END | disposition home or self-care (01) ==
LOC: US 12:46
PROVIDERS: PCP Internal Medicine; Referring Provider Pediatrics Pediatric Nephrology; Visit Provider Pediatrics Pediatric Nephrology
DX: Q61.3 Polycystic kidney, unspecified (principal)
CPT/HCPCS: 76770

== ENCOUNTER 2024-07-23 15:19 | Outpatient (RCR) | payer OTHER, SELFPAY ==
[2024-07-23 16:28] LABS: Absolute Lymphocyte Count 2.17 X10^3/uL (0.83-4.51); Absolute Neutrophil Count 7.4 X10^3/uL (2.0-7.7); Basophil# 0.08 X10^3/uL; Basophil% 0.7 % (0-1); Eosinophil# 0.39 X10^3/uL; Eosinophils% 3.5 % (0-5); Hematocrit 40.1 % (37-47); Hemoglobin 13.3 g/dL (12.0-15.0); Lymphocyte # 2.17 X10^3/ul (0.83-4.51); Lymphocyte % 19.5 % (19-41); Mean Corp Hgb Conc 33.2 g/dL (32-36); Mean Corpuscular Hgb 28.9 pg (27.0-32.0); Mean Corpuscular Volume 87.2 fL (81-99); Mean Platelet Vol. 9.9 fl (6.2-12.0); Monocyte# 1.01 X10^3/uL; Monocyte% 9.1 % (0-10); NRBC Flagged by Analyzer 0 % (0-5); Neutrophil # 7.43 X10^3/uL (2.7-7.7); Neutrophil % 66.8 % (47-70); Platelet Count 236 K/mm3 (150-450); RBC Distribution Width CV 13.3 % (11.6-14.6); White Blood Count 11.1 K/mm3 (4.4-11.0)
[2024-07-23 17:36] LABS: ALB/GLOB Ratio 1.7 RATIO (0.9-2.4); AST(SGOT) 21 U/L (<=31); Alanine Aminotransfer ALT/SGPT 27 U/L (<=34); Albumin, Serum 4.3 g/dL (3.5-5.0); Alkaline Phosphatase 97 U/L (35-104); Anion Gap 12 (5-15); BUN 20 mg/dL (4-19); BUN/Creat Ratio 15.4 RATIO (10-20); Bilirubin, Direct 0.11 mg/dL (0.00-0.30); Calcium,Total 9.6 mg/dL (7.6-11.0); Carbon Dioxide 22.9 mmol/L (21.0-32.0); Chloride 107 mmol/L (98-108); Creatinine, Serum 1.29 mg/dL (0.70-1.20); EST Glomerular Filtration Rate 48 (>60); Globulin 2.5 g/dL (2.2-4.2); Glucose 90 mg/dL (70-99); Potassium 4.7 mmol/L (3.3-5.1); Protein, Total 6.9 g/dL (5.9-8.4); Sodium Level 141 mmol/L (133-145); Total Bilirubin 0.21 mg/dL (0.00-1.30)
== END 2024-08-01 23:59 ==
LOC: BIMLAB 15:19
PROVIDERS: Internal Medicine Rheumatology; PCP Internal Medicine; Referring Provider Pediatrics Pediatric Nephrology; Visit Provider Pediatrics Pediatric Nephrology
DX: M06.4 Inflammatory polyarthropathy (principal); Z79.899 Other long term (current) drug therapy; M79.7 Fibromyalgia; R76.8 Other specified abnormal immunological findings in serum; M18.0 Bilateral primary osteoarthritis of first carpometacarpal joints
CPT/HCPCS: 36415; 80053; 82248; 85025

== ENCOUNTER → 2024-08-02 | Outpatient (CLI) | payer OTHER, SELFPAY ==
[2024-08-02 16:52] LABS: Hematocrit 44.4 % (37-47); Hemoglobin 14.5 g/dL (12.0-15.0); Mean Corp Hgb Conc 32.7 g/dL (32-36); Mean Corpuscular Hgb 28.9 pg (27.0-32.0); Mean Corpuscular Volume 88.6 fL (81-99); Mean Platelet Vol. 9.7 fl (6.2-12.0); Platelet Count 279 K/mm3 (150-450); RBC Distribution Width CV 13.2 % (11.6-14.6); RBC Distribution Width SD 42.7 fl (35.1-43.9); Red Blood Count 5.01 M/mm3 (4.2-5.4); White Blood Count 10.8 K/mm3 (4.4-11.0)
[2024-08-02 17:41] LABS: PTHIN 47 pg/mL (11-61)
[2024-08-02 17:54] LABS: Protein, Urine (Random) < 6.0 mg/dL (0.0-12.0); Protein:Creat Ratio UNABLE TO CALCULATE mg/g CRE (0-200)
[2024-08-02 18:01] LABS: Albumin, Serum 4.5 g/dL (3.5-5.0); Anion Gap 13 (5-15); BUN 19 mg/dL (4-19); Calcium,Total 9.7 mg/dL (7.6-11.0); Carbon Dioxide 24.5 mmol/L (21.0-32.0); Chloride 103 mmol/L (98-108); Creatinine, Serum 1.34 mg/dL (0.70-1.20); EST Glomerular Filtration Rate 46 (>60); Glucose 80 mg/dL (70-99); Potassium 4.8 mmol/L (3.3-5.1); Sodium Level 140 mmol/L (133-145)
[2024-08-02 18:36] LABS: Vitamin D,25 Hydroxy 43.2 ng/mL (30-100)
[2024-08-04 14:08] LABS: QNTFERON TB Mitogen Value > 10.00 IU/mL (.); QNTFERON TB Nil Value 0.02 IU/mL (.); QNTFERON TB1+ Ag Value 0.03 IU/mL (.); QNTFERON TB2+ Ag Value 0.04 IU/mL (.); QNTIFERON TB Positive Criteria Negative (Negative)
== END | disposition home or self-care (01) ==
LOC: BIMLAB 15:28
PROVIDERS: Pediatrics Pediatric Nephrology; PCP Internal Medicine; Referring Provider Internal Medicine Rheumatology; Visit Provider Internal Medicine Rheumatology
DX: N18.31 Chronic kidney disease, stage 3a (principal); M06.4 Inflammatory polyarthropathy; Z79.899 Other long term (current) drug therapy; M79.7 Fibromyalgia; R76.8 Other specified abnormal immunological findings in serum; M18.0 Bilateral primary osteoarthritis of first carpometacarpal joints
CPT/HCPCS: 36415; 80069; 82306; 82570; 83970; 84156; 85027; 86480

== ENCOUNTER → 2024-08-03 | Outpatient (CLI) | payer OTHER, SELFPAY ==
--- NOTE | 2024-08-03 15:36 | RAD_ITS ---
PROCEDURE: CHEST PA AND LATERAL 08/03/2024 REASON FOR EXAM: INFLAMMATORY POLYARTHROPATHY TECHNIQUE: Frontal and lateral views of the chest. COMPARISON: 04/02/2022 FINDINGS: The lungs appear clear. Pulmonary vascularity appears within limits. No pleural effusion. The cardiac and mediastinal contours appear within limits. The visualized osseous structures appear within limits. RAD/Chest PA and Lateral IMPRESSION: No evidence of acute disease. Reading Location: [id number]
== END | disposition home or self-care (01) ==
LOC: MTRAD 15:35
PROVIDERS: PCP Internal Medicine; Referring Provider Internal Medicine Rheumatology; Visit Provider Internal Medicine Rheumatology
DX: M06.4 Inflammatory polyarthropathy (principal); M79.7 Fibromyalgia; R76.8 Other specified abnormal immunological findings in serum; M18.0 Bilateral primary osteoarthritis of first carpometacarpal joints; Z79.899 Other long term (current) drug therapy
CPT/HCPCS: 71046

== ENCOUNTER 2024-08-17 11:00 | Outpatient (RCR) | payer OTHER, SELFPAY ==
[2024-08-17 12:51] LABS: AST(SGOT) 23 U/L (<=31); Alanine Aminotransfer ALT/SGPT 29 U/L (<=34); Albumin, Serum 4.4 g/dL (3.5-5.0); Alkaline Phosphatase 97 U/L (35-104); Bilirubin, Direct 0.18 mg/dL (0.00-0.30); Globulin 2.5 g/dL (2.2-4.2); Protein, Total 6.9 g/dL (5.9-8.4); Total Bilirubin 0.39 mg/dL (0.00-1.30)
== END 2024-09-01 23:59 ==
LOC: BIMLAB 11:00
PROVIDERS: PCP Internal Medicine; Referring Provider Pediatrics Pediatric Nephrology; Visit Provider Pediatrics Pediatric Nephrology
DX: Q61.3 Polycystic kidney, unspecified (principal)
CPT/HCPCS: 36415; 80076

== ENCOUNTER 2024-09-17 09:30 | Outpatient (RCR) | payer OTHER, SELFPAY ==
[2024-09-18 16:02] LABS: AST(SGOT) 24 U/L (<=31); Alanine Aminotransfer ALT/SGPT 31 U/L (<=34); Albumin, Serum 4.2 g/dL (3.5-5.0); Alkaline Phosphatase 91 U/L (35-104); Bilirubin, Direct 0.18 mg/dL (0.00-0.30); Globulin 2.4 g/dL (2.2-4.2); Protein, Total 6.6 g/dL (5.9-8.4); Total Bilirubin 0.43 mg/dL (0.00-1.30)
== END 2024-10-01 23:59 ==
LOC: BIMLAB 09:30
PROVIDERS: PCP Internal Medicine; Referring Provider Pediatrics Pediatric Nephrology; Visit Provider Pediatrics Pediatric Nephrology
DX: Q61.2 Polycystic kidney, adult type (principal)
CPT/HCPCS: 36415; 80076

== ENCOUNTER → 2024-10-08 | Outpatient (CLI) | payer OTHER, SELFPAY | END | disposition home or self-care (01) | LOC: MTRAD 12:34 | PROVIDERS: PCP Internal Medicine; Referring Provider Physician Assistant Medical; Visit Provider Physician Assistant Medical | DX: M25.562 Pain in left knee (principal) | CPT/HCPCS: 73564 ==

== ENCOUNTER 2024-10-15 10:50 | Outpatient (RCR) | payer OTHER, SELFPAY ==
[2024-10-15 12:14] LABS: AST(SGOT) 23 U/L (<=31); Alanine Aminotransfer ALT/SGPT 33 U/L (<=34); Albumin, Serum 4.1 g/dL (3.5-5.0); Alkaline Phosphatase 85 U/L (35-104); Bilirubin, Direct 0.17 mg/dL (0.00-0.30); Globulin 2.2 g/dL (2.2-4.2)
== END 2024-11-01 23:59 ==
LOC: BIMLAB 10:50
PROVIDERS: PCP Internal Medicine; Referring Provider Pediatrics Pediatric Nephrology; Visit Provider Pediatrics Pediatric Nephrology
DX: Q61.3 Polycystic kidney, unspecified (principal)
CPT/HCPCS: 36415; 80076

== ENCOUNTER → 2024-11-05 | Outpatient (CLI) | payer OTHER, SELFPAY ==
[2024-11-05 13:25] LABS: AST(SGOT) 26 U/L (<=31); Alanine Aminotransfer ALT/SGPT 30 U/L (<=34); Albumin, Serum 4.3 g/dL (3.5-5.0); Alkaline Phosphatase 83 U/L (35-104); Anion Gap 12 (5-15); BUN 16 mg/dL (4-19); BUN/Creat Ratio 12.3 RATIO (10-20); Calcium,Total 9.3 mg/dL (7.6-11.0); Carbon Dioxide 25.8 mmol/L (21.0-32.0); Chloride 106 mmol/L (98-108); Globulin 2.3 g/dL (2.2-4.2); Glucose 81 mg/dL (70-99); Potassium 4.5 mmol/L (3.3-5.1)
[2024-11-05 13:28] LABS: Hematocrit 43.6 % (37-47); Hemoglobin 13.9 g/dL (12.0-15.0); Immature Granulocytes Count 0.030 X10^3/uL (0.0-0.0); Mean Corp Hgb Conc 31.9 g/dL (32-36); Mean Corpuscular Volume 91.0 fL (81-99); Mean Platelet Vol. 10.1 fl (6.2-12.0); NRBC Flagged by Analyzer 0 % (0-5); Platelet Count 245 K/mm3 (150-450); RBC Distribution Width CV 13.5 % (11.6-14.6); RBC Distribution Width SD 45.2 fl (35.1-43.9); Red Blood Count 4.79 M/mm3 (4.2-5.4); White Blood Count 9.4 K/mm3 (4.4-11.0)
== END | disposition home or self-care (01) ==
LOC: BIMLAB 09:15
PROVIDERS: PCP Internal Medicine; Referring Provider Internal Medicine Rheumatology; Visit Provider Internal Medicine Rheumatology
DX: M06.09 Rheumatoid arthritis without rheumatoid factor, multiple sites (principal); Z79.899 Other long term (current) drug therapy; M79.7 Fibromyalgia; R76.8 Other specified abnormal immunological findings in serum; M18.0 Bilateral primary osteoarthritis of first carpometacarpal joints
CPT/HCPCS: 36415; 80053; 85025

== ENCOUNTER 2024-11-12 10:54 | Outpatient (RCR) | payer OTHER, SELFPAY ==
[2024-11-12 12:09] LABS: AST(SGOT) 23 U/L (<=31); Alanine Aminotransfer ALT/SGPT 28 U/L (<=34); Albumin, Serum 4.3 g/dL (3.5-5.0); Alkaline Phosphatase 87 U/L (35-104); Bilirubin, Direct 0.18 mg/dL (0.00-0.30); Globulin 2.5 g/dL (2.2-4.2)
== END 2024-11-12 18:00 | disposition home or self-care (01) ==
LOC: LAB 10:54
PROVIDERS: PCP Internal Medicine; Referring Provider Pediatrics Pediatric Nephrology; Visit Provider Pediatrics Pediatric Nephrology
DX: Q61.3 Polycystic kidney, unspecified (principal)
CPT/HCPCS: 36415; 80076

== ENCOUNTER → 2024-12-04 | Outpatient (CLI) | payer OTHER, SELFPAY ==
[2024-12-04 17:11] LABS: PTHIN 46 pg/mL (11-61)
[2024-12-04 17:18] LABS: Hematocrit 40.8 % (37-47); Hemoglobin 13.4 g/dL (12.0-15.0); Mean Corp Hgb Conc 32.8 g/dL (32-36); Mean Corpuscular Volume 89.7 fL (81-99); Mean Platelet Vol. 10.2 fl (6.2-12.0); Platelet Count 246 K/mm3 (150-450); RBC Distribution Width CV 13.2 % (11.6-14.6); RBC Distribution Width SD 43.4 fl (35.1-43.9); Red Blood Count 4.55 M/mm3 (4.2-5.4); White Blood Count 9.9 K/mm3 (4.4-11.0)
[2024-12-04 17:36] LABS: AST(SGOT) 24 U/L (<=31); Alanine Aminotransfer ALT/SGPT 40 U/L (<=34); Albumin, Serum 4.5 g/dL (3.5-5.0); Alkaline Phosphatase 88 U/L (35-104); Anion Gap 12 (5-15); BUN 20 mg/dL (4-19); BUN/Creat Ratio 13.8 RATIO (10-20); Bilirubin, Direct 0.17 mg/dL (0.00-0.30); Calcium,Total 9.7 mg/dL (7.6-11.0); Carbon Dioxide 23.1 mmol/L (21.0-32.0); Chloride 106 mmol/L (98-108); Globulin 2.5 g/dL (2.2-4.2); Glucose 98 mg/dL (70-99); Potassium 4.6 mmol/L (3.3-5.1); Vitamin D,25 Hydroxy 40.1 ng/mL (30-100)
[2024-12-04 22:05] LABS: Creatinine, Urine (random) 47.00 mg/dL (28.00-217.00); Microalbumin,Random Urine 14.1 mg/L (<20 mg/L); Protein, Urine (Random) < 6.0 mg/dL (0.0-12.0); Protein:Creat Ratio UNABLE TO CALCULATE mg/g CRE (0-200)
== END | disposition home or self-care (01) ==
LOC: BIMLAB 15:54
PROVIDERS: PCP Internal Medicine; Visit Provider Pediatrics Pediatric Nephrology
DX: Q61.3 Polycystic kidney, unspecified (principal)
CPT/HCPCS: 36415; 80048; 80076; 82043; 82306; 82570; 83970; 84100; 84156; 85027

== ENCOUNTER 2025-01-29 15:23 | Outpatient (RCR) | payer OTHER, SELFPAY ==
[2025-01-02 16:31] LABS: AST(SGOT) 26 U/L (<=31); Alanine Aminotransfer ALT/SGPT 35 U/L (<=34); Albumin, Serum 4.5 g/dL (3.5-5.0); Alkaline Phosphatase 99 U/L (35-104); Bilirubin, Direct 0.16 mg/dL (0.00-0.30); Globulin 2.9 g/dL (2.2-4.2)
[2025-01-29 16:19] LABS: AST(SGOT) 23 U/L (<=31); Alanine Aminotransfer ALT/SGPT 27 U/L (<=34); Albumin, Serum 4.1 g/dL (3.5-5.0); Alkaline Phosphatase 94 U/L (35-104); Bilirubin, Direct 0.11 mg/dL (0.00-0.30); Globulin 2.6 g/dL (2.2-4.2)
== END 2025-01-29 18:00 | disposition home or self-care (01) ==
LOC: LAB 15:23
PROVIDERS: PCP Internal Medicine; Referring Provider Pediatrics Pediatric Nephrology; Visit Provider Pediatrics Pediatric Nephrology
DX: Q61.3 Polycystic kidney, unspecified (principal)
CPT/HCPCS: 36415; 80076

== ENCOUNTER → 2025-02-11 | Outpatient (CLI) | payer OTHER, SELFPAY ==
[2025-02-11 17:19] LABS: Hematocrit 41.8 % (37-47); Hemoglobin 13.5 g/dL (12.0-15.0); Immature Granulocytes Count 0.040 X10^3/uL (0.0-0.0); Mean Corp Hgb Conc 32.3 g/dL (32-36); Mean Corpuscular Volume 90.7 fL (81-99); Mean Platelet Vol. 10.0 fl (6.2-12.0); NRBC Flagged by Analyzer 0 % (0-5); Platelet Count 273 K/mm3 (150-450); RBC Distribution Width CV 12.8 % (11.6-14.6); RBC Distribution Width SD 42.3 fl (35.1-43.9); Red Blood Count 4.61 M/mm3 (4.2-5.4); White Blood Count 10.6 K/mm3 (4.4-11.0)
[2025-02-11 17:38] LABS: AST(SGOT) 21 U/L (<=31); Alanine Aminotransfer ALT/SGPT 27 U/L (<=34); Albumin, Serum 4.3 g/dL (3.5-5.0); Alkaline Phosphatase 83 U/L (35-104); Anion Gap 13 (5-15); BUN 21 mg/dL (4-19); BUN/Creat Ratio 15.2 RATIO (10-20); CRP 3.59 mg/L (0.0-3.0); Calcium,Total 9.7 mg/dL (7.6-11.0); Carbon Dioxide 23.1 mmol/L (21.0-32.0); Chloride 106 mmol/L (98-108); Globulin 2.5 g/dL (2.2-4.2); Glucose 90 mg/dL (70-99); Potassium 4.7 mmol/L (3.3-5.1)
--- OUTSIDE RECORDS SUMMARY | 2025-02-11 19:14 | XMS RPT_ITS | CCD ---
Author Organization [facility] Care Team Providers Care Computer Specialist Name Role Phone Gomez Gillette MD Unavailable Dinh Lorenzo Unavailable Unavaila ISREAL Munson Unavailable Unavailable XIONG, RALPH Referring Unavailable NADINE SALAMANCA B Primary Care Unavailable Dr. Nadine Salamanca Primary Care Provider [phone] Dr. Nadine Salamanca Attending Provider [phone] Dr. Nadine Salamanca Referring Provider [phone] Flo JEAN, MARCO ANTONIO Hendricks Attending Provider Unavailable Primary Care Provider Dr. Nadine Balderas Primary Care Provider [phone]) Dr. Nadine Salamanca Attending Provider [phone] Dr. Nadine Salamanca Referring Provider [phone] Dr. Espinoza Pires Attending Provider Unavailable Primary Care Provider Dr. Nadine Balderas Primary Care Provider [phone]) Dr. Nadine Salamanca Attending Provider [phone] Dr. Nadine Salamanca Referring Provider [phone] Dr. Nadine Salamanca Primary Care Provider [phone]) Dr. Nadine Salamanca Referring Provider [phone] BETH Perera Attending Provider Dr. Espinoza Pires Attending Provider Dr. Nadine Salamanca Attending Provider [phone] Cheikh ZIMMERMAN, Dr. Estrada Primary Care Provider Cassie ZIMMERMAN, Dr. Walker Attending Provider Cassie ZIMMERMAN, Dr. Walker Referring Provider Cheikh ZIMMERMAN, Dr. Estrada Attending Provider [phone] Cheikh ZIMMERMAN, Dr. Estrada Referring Provider [phone] Unavailable Primary Care Provider Unavailabl yumi Salamanca MD, Dr. Esrtada Primary Care Provider Cassie ZIMMERMAN, Dr. Walker Attending Provider Cassie ZIMMERMAN, Dr. Walker Referring Provider Asiya ZIMMERMAN, Dr. Ott Other Provider Asiya ZIMMERMAN, Dr. Ott Attending Provider Asiya ZIMMERMAN, Dr. Ott Referring Provider LAURA, MOHINI Referring Unavailable LAURA, MOHINI Referring Unavailable LAURA, MOHINI Attending Unavailable Cheikh ZIMMERMAN, Dr. Estrada Primary Care Provider Cassie ZIMMERMAN, Dr. Walker Attending Provider Cassie ZIMMERMAN, Dr. Walker Referring Provider Cheikh ZIMMERMAN, Dr. Estrada Primary Care Provider Cassie ZIMMERMAN, Dr. Walker Attending Provider Cassie ZIMMERMAN, Dr. Walker Referring Provider Ludivina Barron Attending Provider Ludivina Barron Referring Provider Cheikh ZIMMERMAN, Dr. Estrada Primary Care Provider Cheikh ZIMMERMAN, Dr. Estrada Referring Provider Cheikh ZIMMERMAN, Dr. Estrada Primary Care Provider Cassie ZIMMERMAN, Dr. Walker Attending Provider Cassie ZIMMERMAN, Dr. Walker Referring Provider Cheikh ZIMMERMAN, Dr. Estrada Primary Care Provider Cassie ZIMMERMAN, Dr. Walker Attending Provider Cassie ZIMMERMAN, Dr. Walker Referring Provider Asiya ZIMMERMAN, Dr. Ott Other Provider Asiya ZIMMERMAN, Dr. Ott Attending Provider Asiya ZIMMERMAN, Dr. Ott Referring Provider Cheikh ZIMMERMAN, Dr. Estrada Primary Care Provider Cassie ZIMMERMAN, Dr. Walker Attending Provider Cassie ZIMMERMAN, Dr. Walker Referring Provider Asiya ZIMMERMAN, Dr. Ott Other Provider Namrata Braden Referring Unavailable AbrahanlanNamrata edwards Attending Unavailable Oleghe, Efewongbe Primary Care Unavailable Oleghe, Efewongbe Primary Care Unavailable Ludivina Barron Referring Unavail able Ludivina Barron Attending Unavail able Cassie, Aaron Referring Unavailable Oleghe, Efewongbe Primary Care Unavailable Cassie, Aaron Attending Unavailable Oleghe, Efewongbe Primary Care Unavailable Cassie, Aaron Referring Unavailable Cassie, Aaron Attending Unavailable Oleghe, Efewongbe Primary Care Unavailable Cassie, Aaron Referring Unavailable Cassie, Aaron Attending Unavailable Oleghe, Efewongbe Primary Care Unavailable Cassie, Aaron Referring Unavailable Cassie, Aaron Attending Unavailable Cassie, Aaron Referring Unavailable Oleghe, Efewongbe Primary Care Unavailable Cassie, Aaron Attending Unavailable Asiya Namrata Consulting Unavailable Cassie, Aaron Attending Unavailable Oleghe, Efewongbe Primary Care Unavailable Cassie, Aaron Referring Unavailable Oleghe, Efewongbe Primary Care Unavailable Cassie, Aaron Referring Unavailable Cassie, Aaron Attending Unavailable Vellanki, Namrata Consulting Unavailable Cassie, Aaron Referring Unavailable Oleghe, Efewongbe Primary Care Unavailable Cassie, Aaron Attending Unavailable Oleghe, Efewongbe Primary Care Unavailable Cassie, Aaron Attending Unavailable Oleghe, Efewongbe Primary Care Unavailable Ludivina Barron Attending Unavail able Oleghe, Efewongbe Referring Unavailable Oleghe, Efewongbe Attending Unavailable Oleghe, Efewongbe Primary Care Unavailable Oleghe, Efewongbe Referring Unavailable Oleghe, Efewongbe Attending Unavailable Oleghe, Efewongbe Primary Care Unavailable Oleghe, Efewongbe Referring Unavailable Vellanki, Namrata Consulting Unavailable Cassie, Aaron Referring Unavailable Oleghe, Efewongbe Primary Care Unavailable Cassie, Aaron Attending Unavailable Vellanki, Namrata Referring Unavailable Vellanki, Namrata Attending Unavailable Oleghe, Efewongbe Primary Care Unavailable Vellanki, Namrata Consulting Unavailable Cassie, Aaron Referring Unavailable Oleghe, Efewongbe Primary Care Unavailable Cassie, Aaron Attending Unavailable Vellanki, Namrata Referring Unavailable Vellanki, Namrata Attending Unavailable Oleghe, Efewongbe Primary Care Unavailable Vellanki, Namrata Consulting Unavailable Cassie, Aaron Attending Unavailable Cassie, Aaron Referring Unavailable Oleghe, Efewongbe Primary Care Unavailable Vellanki, Namrata Consulting Unavailable Cassie, Aaron Attending Unavailable Oleghe, Efewongbe Primary Care Unavailable Cassie, Aaron Referring Unavailable Vellanki, Namrata Consulting Unavailable Cassie, Aaron Attending Unavailable Oleghe, Efewongbe Primary Care Unavailable Cassie, Aaron Referring Unavailable Allergies Allergy Classification Reported Allergen(s) Allergy Type Date of Onset Reaction(s) Facility (10 sources) Seasonal allergy; Translations: [SEASONAL ALLERGIES] Allergy to substance 9 Other: See Comments [facility] (20 sources) Grass pollen; Translations: [GRASS POLLEN] Allergy to substance 3 Other: See Comments [facility] Comment on above: SNEEZE, EYE ITCHING, RUNNY NOSE (17 sources) Tree and shrub pollen; Translations: [tree and shrub pollen] Allergy to substance 3 Other [facility] Comment on above: SNEEZE, EYE ITCHING, NOSE RUNNING (7 sources) Tree; Translations: [TREES] Allergy to substance 4 Other: See Comments [facility] Medications Current Medications Medication Drug Class(es) Dates Sig (Normalized) Sig (Original) [id number] 200 actuat albuterol 0.09 mg/actuat metered dose inhaler (20 sources) beta2-Adrenergic Agonist Start: 04-02-2022 End: 04-19-2022 Albuterol Sulfate 90 mcg/actuation HFA aerosol inhaler Active 2 NMA INHALATION EVERY 6 HOURS as needed for shortness of breath or wheezing 8.5 1 April 19, 2022 12:26pm Start: 04-02-2022 End: 04-19-2022 take 1 puff(s) by inhalation every six hours Albuterol Sulfate Active 2 PUFF INHALATION EVERY 6 HOURS 8.5 April 19, 2022 12:26pm Start: 12-29-2020 End: 03-25-2022 Albuterol Sulfate (Ventolin Hfa) 90 mcg/actuation HFA aerosol inhaler Discontinued 1 - 2 NMA INHALATION EVERY 4 HOURS NEEDED as needed for cough 1 0 December 29, 2020 12:00am March 25, 2022 9:08am Start: 12-29-2020 End: 03-25-2022 take 1 puff(s) by inhalation every four hours as needed Albuterol Sulfate (Ventolin Hfa) 90 mcg/actuation HFA aerosol inhaler Discontinued 1 - 2 PUFF INHALATION EVERY 4 HOURS NEEDED December 29, 2020 12:00am March 25, 2022 9:08am ascorbic acid 1000 mg oral tablet (20 sources) Vitamin C Start: 04-01-2017 take 1 g by mouth once daily Ascorbic Acid (Vitamin C) 1,000 mg tablet Active 1 g PO DAILY April 01, 2017 1:00am Check with primary doctor Start: 04-01-2017 take 1 g by mouth once daily A scorbic Acid (Vitamin C) Active 1 GM PO DAILY April 01, 2017 1:00am take 1 tablet by mouth once susanna y ASCORBIC ACID (VITAMIN C ORAL) Take 1 tablet by mouth once daily. Active take 1 tablet by mouth once susanna y ASCORBIC ACID (VITAMIN C ORAL) Take 1 tablet by mouth once daily. 0 Active ASCORBIC ACID (V ITAMIN C ORAL) Take 1 tablet by mouth. 0 Active Comment on above: Take 1 tablet by darwin th. Take 1 tablet by darwin th once daily. aspirin 81 mg chewable tablet (20 sources) Platelet Aggregation Inhibitor, Nonsteroidal Anti-inflammatory Drug Start: 03-24-2021 take 162 mg by mouth once daily Aspirin Active 162 MG PO DAILY 60 March 24, 2021 4:54pm Start: 10-13-2020 take 2 tablets by mo uth once daily Aspirin 81 mg tablet,chewable Active 162 mg PO DAILY 60 0 March 24, 2021 4:54pm Start: 10-13-2020 End: 03-24-2021 take 1 tablet by mouth once daily Aspirin 81 mg tablet,chewable Discontinued 81 mg PO DAILY 30 0 October 13, 2020 12:00am March 24, 2021 4:55pm Comment on above: Take by mouth. Take by mouth once d aily. Two chewable estradiol 0.1 mg/ml vaginal cream (3 sources) Estrogen Start: 2024 estradiol (ESTRACE) 0.01 % (0.1 mg/gram) vaginal cream Use 0.5g vaginally at bedtime for 2 weeks then 1-3 time/weeks for maintenance. 42.5 g 2 07/31/2024 Active 1 ml etanercept 50 mg/ml auto-injector (6 sources) Tumor Necrosis Factor Angel Start: 2024 Etanercept (Enbrel Sureclick) 50 mg/mL (1 mL) pen injector Active mg SC October 08, 2024 12:00am hydroxychloroquine sulfate 200 mg oral tablet (12 sources) Antimalarial, Antirheumatic Agent Start: 2023 take 1 tablet by mouth twice daily Hydroxychloroquine 200 mg tablet Active 200 mg PO TWICE A DAY February 17, 2024 1:00am leflunomide 10 mg oral tablet (3 sources) Antirheumatic Agent Start: 2024 take 1 tablet by mouth once daily leflunomide (ARAVA) 10 mg tablet Take 10 mg by mouth once daily. 06/25/2024 Active levocetirizine dihydrochloride 5 mg oral tablet (20 sources) Histamine-1 Receptor Antagonist Start: 2022 take 1 tablet by mouth once daily Levocetirizine (Xyzal) 5 mg tablet Active 5 mg PO DAILY November 03, 2022 12:00am Start: 05-13-2022 End: 07-07-2022 take 1 tablet by mouth once daily Levocetirizine (Xyzal) 5 mg tablet Discontinued 5 mg PO DAILY May 13, 2022 1:00am July 07, 2022 8:35am levocetirizine d ihydrochloride (XYZAL ORAL) Take by mouth. 0 Active Comment on above: Take by mouth. Take 5 mg by mouth o nce daily. montelukast 10 mg oral tablet (20 sources) Leukotriene Receptor Antagonist Start: 3 take 1 tablet by mouth once daily Montelukast 10 mg tablet Active 10 mg PO DAILY November 03, 2022 12:00am Start: 05-13-2022 End: 07-07-2022 take 1 tablet by mouth at bedtime Montelukast 10 mg tablet Discontinued 10 mg PO AT BEDTIME 90 1 May 13, 2022 1:00am July 07, 2022 8:47am Comment on above: Take 10 mg by mouth daily at bedtime. multivitamin ORAL tablet (9 sources) Start: 1 take 1 tablet by mouth once daily multivitamin ORAL tablet Take one(1) tablet daily. 0 04/17/2010 Active Comment on above: Take one(1) tablet d ailoswaldo. Multivitamin preparation (12 sources) Start: 3 take 1 tablet by mouth once daily Multivitamin Active 1 TABLET PO DAILY November 03, 2022 12:00am Start: 04-01-2017 End: 06-22-2018 take 1 tablet by mouth once daily in the morning Multivitamin Discontinued 1 TABLET PO EVERY MORNING April 01, 2017 11:34am June 22, 2018 4:17pm Start: 04-01-2017 End: 06-22-2018 take 1 tablet by mouth once daily in the morning Multivitamin Discontinued 1 TABLET PO EVERY MORNING April 01, 2017 12:00am June 22, 2018 3:17pm Start: 04-01-2017 End: 06-22-2018 take 1 tablet by mouth once daily in the morning Multivitamin Discontinued 1 TABLET PO EVERY MORNING April 01, 2017 1:00am June 22, 2018 4:17pm Multivitamin tablet (20 sources) Start: 11-03-2022 Multivitamin t ablet Active 1 {tbl} PO DAILY November 03, 2022 12:00am Start: 04-01-2017 End: 06-22-2018 Multivitamin tablet Disconti nued 1 {tbl} PO EVERY MORNING April 01, 2017 1:00am June 22, 2018 4:17pm predniSONE 10 mg oral tablet (20 sources) Start: 10-08-2024 Prednisone 10 mg tablet Active 10 mg PO .COMPLEX 30 0 October 08, 2024 12:00am Take 4 pills for 3 days, 3 pills for 3 days, 2 pills for 3 days, take 1 pill for 3 days Start: 09-08-2023 End: 09-20-2023 Prednisone 10 mg tablet Disc ontinued 10 mg PO daily 30 12 0 September 08, 2023 12:00am September 19, 2023 12:00am September 20, 2023 12:05am Unspecified contact dermatitis, unspecified cause Take 4 tabs once daily days 1-3 3 tabs once daily days 4-6 2 tabs once daily days 7-9 and 1 tab once daily days 10-12. Start: 04-19-2022 End: 05-13-2022 Prednisone 10 mg tablets,dos e pack Discontinued 10 mg PO As Directed 48 April 19, 2022 1:00am May 13, 2022 3:47pm see taper instructions Start: 04-02-2022 End: 04-19-2022 take 2 tablets by mouth once daily Prednisone 20 mg tablet Discontinued 40 mg PO DAILY 10 April 02, 2022 1:00am April 19, 2022 11:46am Start: 04-02-2022 End: 04-19-2022 take 40 mg by mouth once daily Prednisone Discontinued 40 MG PO DAILY April 02, 2022 1:00am April 19, 2022 11:46am tolvaptan 60 mg oral tablet (20 sources) Vasopressin V2 Receptor Antagonist Start: 06-11-2024 Tolvaptan (Polycys Kidney Dis) (Jynnorbertque) 60 mg (AM)/ 30 mg (PM) tablets, sequential Active 0 PO per package directions June 11, 2024 12:00am PO PER PKG DIR Start: 03-11-2021 End: 03-24-2021 take 2 tablets by mouth once daily in the morning, then take 1 tablet by mouth in the evening Tolvaptan (Polycys Kidney Dis) (Jynarque) 30 mg tablet Discontinued 60 mg PO DAILY March 11, 2021 1:00am March 24, 2021 10:37am 60 mg AM. 30 mg PM Start: 12-21-2017 End: 12-26-2018 Tolvaptan (Polycys Kidney Di s) (Jynarque) 90 mg (AM)/ 30 mg (PM) tablets, sequential Discontinued NMA PO 0 December 21, 2017 12:00am December 26, 2018 4:26pm Start: 12-02-2017 End: 05-24-2022 JYNARQUE 90 mg (AM)/ 30 mg ( PM) TbSQ Start: 12-02-2017 End: 05-24-2022 JYNARQUE 45 mg (AM)/ 15 mg ( PM) TbSQ Start: 12-02-2017 End: 05-24-2022 JYNARQUE 60 mg (AM)/ 30 mg ( PM) TbSQ Start: 12-02-2017 JYNARQUE 90 mg (AM)/ 30 mg (PM) TbSQ Start: 12-02-2017 JYNARQUE 45 mg (AM)/ 15 mg (PM) TbSQ Start: 12-02-2017 JYNARQUE 60 mg (AM)/ 30 mg (PM) TbSQ Completed/Discontinued Medications Medication Drug Class(es) Dates Sig (Normalized) Sig (Original) amoxicillin 875 mg / clavulanate 125 mg oral tablet (20 sources) Penicillin-class Antibacterial Start: 04-19-2022 End: 05-03-2022 Amoxicillin-Pot Clavulanate 875-125 mg tablet Discontinued 1 {tbl} PO Q12H 14 0 April 19, 2022 1:00am May 02, 2022 1:00am May 03, 2022 1:03am Start: 04-19-2022 End: 05-03-2022 take 1 tablet by mouth every twelve hours Amoxicillin-Pot Clavulanate Discontinued 1 TABLET PO Q12H April 19, 2022 1:00am May 03, 2022 1:03am Start: 07-17-2021 End: 07-29-2021 Amoxicillin-Pot Clavulanate 875-125 mg tablet Discontinued 1 {tbl} PO TWICE A DAY 20 0 July 17, 2021 3:17pm July 29, 2021 5:11pm Start: 07-17-2021 End: 07-29-2021 take 1 tablet by mouth twice daily Amoxicillin-Pot Clavulanate Discontinued 1 TABLET PO TWICE A DAY 20 July 17, 2021 3:17pm July 29, 2021 5:11pm Start: 04-13-2019 End: 04-17-2019 Amoxicillin-Pot Clavulanate (Augmentin) 875-125 mg tablet Discontinued 1 {tbl} PO TWICE A DAY 20 0 April 13, 2019 1:00am April 17, 2019 9:43am azithromycin 250 mg oral tablet (20 sources) Macrolide Antimicrobial Start: 03-10-2023 End: 04-07-2023 take 2-5 tablets by mouth once daily Azithromycin 250 mg tablet Discontinued 0 PO .COMPLEX 6 0 March 10, 2023 1:00am April 07, 2023 5:28pm take 500 mg today (day 1), then 250 mg for 4 days (days 2-5) PO Start: 12-20-2022 End: 04-07-2023 Azithromycin 250 mg tablet Discontinued 250 mg PO daily 12 December 20, 2022 12:00am April 07, 2023 5:28pm 2 tablets today, then 1 tablet daily on days 2 through 11 Start: 07-21-2021 End: 07-29-2021 Azithromycin 250 mg tablet Discontinued 0 PO .COMPLEX 6 0 July 21, 2021 8:17am July 29, 2021 5:11pm Take two tablets by mouth on day one then one tablet by mouth on days 2-5 Start: 07-21-2021 End: 07-29-2021 Azithromycin Discontinued 0 PO .COMPLEX 6 July 21, 2021 8:17am July 29, 2021 5:11pm Take two tablets by mouth on day one then one tablet by mouth on days 2-5 Start: 12-31-2020 End: 03-11-2021 take 2-5 tablets by mouth once daily Azithromycin (Zithromax Z-Juan Carlos) 250 mg tablet Discontinued 0 PO .COMPLEX 6 0 December 31, 2020 12:00am March 11, 2021 5:30pm take 500 mg today (day 1), then 250 mg for 4 days (days 2-5) PO Start: 04-22-2018 End: 06-22-2018 take 2-5 tablets by mouth once daily Azithromycin (Zithromax Z-Juan Carlos) 250 mg tablet Discontinued 0 PO .COMPLEX 6 0 April 22, 2018 1:00am June 22, 2018 4:16pm take 500 mg today (day 1), then 250 mg for 4 days (days 2-5) PO Start: 02-20-2018 End: 03-15-2018 Azithromycin 250 mg tablet Discontinued 0 PO .COMPLEX 6 0 February 20, 2018 1:00am March 15, 2018 5:23pm Take two tablets by mouth on day one then one tablet by mouth on days 2-5 Start: 08-05-2017 End: 09-19-2017 take 2-5 tablets by mouth once daily Azithromycin (Zithromax Z-Juan Carlos) 250 mg tablet Discontinued 0 PO .COMPLEX 6 0 August 05, 2017 12:00am September 19, 2017 8:38am take 500 mg today (day 1), then 250 mg for 4 days (days 2-5) PO benzonatate 100 mg oral capsule (20 sources) Non-narcotic Antitussive Start: 12-31-2020 End: 01-12-2021 take 1 capsule by mouth three times daily as needed for cough Benzonatate (Tessalon Perles) 100 mg capsule Discontinued 100 mg PO THREE TIMES A DAY as needed for cough 60 1 December 31, 2020 9:56am January 12, 2021 8:05am Start: 04-13-2019 End: 08-31-2019 take 1 capsule by mouth three times daily as needed for cough Benzonatate (Tessalon Perles) 100 mg capsule Discontinued 100 mg PO THREE TIMES A DAY as needed for cough 30 0 April 13, 2019 1:00am August 31, 2019 8:33am Start: 08-05-2017 End: 09-19-2017 take 1 capsule by mouth three times daily as needed for cough Benzonatate 200 mg capsule Discontinued 200 mg PO THREE TIMES A DAY as needed for cough 21 0 August 05, 2017 12:00am September 19, 2017 8:37am cetirizine hydrochloride 10 mg oral tablet (20 sources) Histamine-1 Receptor Antagonist Start: 04-22-2018 End: 11-03-2022 take 1 tablet by mouth once daily as needed Cetirizine (Zyrtec) 10 mg tablet Discontinued 10 mg PO DAILY as needed for Allergy Symptoms August 31, 2019 8:33am November 03, 2022 9:01am Start: 02-28-2017 take 1 tablet by darwin th once daily ZYRTEC ALLERGY 10 MG TABS One tablet by mouth daily CETIRIZINE HCL [id number] Ruth Perez Start: 02-15-2017 End: 03-15-2018 take 1 capsule by mouth once daily Cetirizine 10 MG capsule Discontinued 10 mg PO DAILY February 15, 2017 1:00am March 15, 2018 5:23pm CETIRIZINE HCL ( ZYRTEC ORAL) Take by mouth. 0 Active Comment on above: Take by mouth. cholecalciferol 0.05 mg oral capsule (20 sources) Vitamin D Start: 04-01-20 End: 06-12-19 take 1 capsule by mouth once Cholecalciferol (Vitamin D3) 2,000 unit capsule Discontinued 2000 U PO ONCE April 01, 2017 1:00am June 11, 2024 8:30am Check with primary doctor Start: 03-25-2016 End: 05-24-2022 take 1 tablet by mouth once daily Cholecalciferol, Vitamin D3, 2,000 unit cap Take 1 tablet by mouth once daily. 90 capsule 3 03/25/2016 05/24/2022 Discontinued (Other) Comment on above: Take 1 tablet by darwin once daily. ciprofloxacin 500 mg oral tablet (20 sources) Quinolone Antimicrobial Start: 02-20-20 End: 04-01-20 take 1 tablet by mouth twice daily Ciprofloxacin Hcl 500 MG tablet Discontinued 500 mg PO TWICE A DAY 14 0 February 19, 2017 1:00am April 01, 2017 11:33am codeine phosphate 2 mg/ml / guaiFENesin 40 mg/ml oral solution (20 sources) Opioid Agonist Start: 04-02-20 End: 05-13-19 23 take 1 mL by mouth every six hours as needed for cough Codeine-Guaifenesin 10-200 mg/5 mL liquid Discontinued 5 mL PO EVERY 6 HOURS as needed for cough 473 0 April 02, 2022 1:00am May 13, 2022 3:47pm Cough Chest congestion Cough, unspecified Start: 04-02-2022 End: 05-13-2022 take 1 mL by mouth every six hours Codeine-Guaifenesin Discontinued 5 ML PO EVERY 6 HOURS 473 April 02, 2022 1:00am May 13, 2022 3:47pm Start: 01-12-2021 End: 03-11-2021 take 1 mL by mouth every four hours Codeine-Guaifenesin 10-100 mg/5 mL liquid Discontinued 5 mL PO Q4H January 12, 2021 12:00am March 11, 2021 5:31pm Start: 01-12-2021 End: 03-11-2021 take 1 mL by mouth every four hours Codeine-Guaifenesin Discontinued 5 ML PO Q4H January 12, 2021 12:00am March 11, 2021 5:31pm Start: 12-29-2020 End: 03-11-2021 take 1 mL by mouth every six hours as needed for cough Codeine-Guaifenesin 10-200 mg/5 mL liquid Discontinued 5 mL PO EVERY 6 HOURS as needed for cough 473 0 December 29, 2020 12:00am March 11, 2021 5:31pm Start: 12-29-2020 End: 03-11-2021 take 1 mL by mouth every six hours Codeine-Guaifenesin Discontinued 5 ML PO EVERY 6 HOURS 473 December 29, 2020 12:00am March 11, 2021 5:31pm Start: 04-13-2019 End: 08-31-2019 take 1 mL by mouth every six hours as needed for cough Codeine-Guaifenesin 10-100 mg/5 mL liquid Discontinued 5 mL PO EVERY 6 HOURS as needed for cough 120 0 April 13, 2019 1:00am August 31, 2019 8:34am Start: 04-13-2019 End: 08-31-2019 take 1 mL by mouth every six hours Codeine-Guaifenesin Discontinued 5 ML PO EVERY 6 HOURS 120 April 13, 2019 1:00am August 31, 2019 8:34am Start: 11-25-2017 End: 12-21-2017 take 5-10 mL by mouth every six hours as needed for cough Codeine-Guaifenesin (Cheratussin Ac) 10-100 mg/5 mL liquid Discontinued 0 PO EVERY 6 HOURS as needed for cough 120 0 November 25, 2017 12:00am December 21, 2017 4:17pm 5-10 mL PO Q6H PRN Start: 11-25-2017 End: 12-21-2017 take 5-10 mL by mouth every six hours as needed Codeine-Guaifenesin (Cheratussin Ac) 10-100 mg/5 mL liquid Discontinued 0 PO EVERY 6 HOURS 120 November 25, 2017 12:00am December 21, 2017 4:17pm 5-10 mL PO Q6H PRN 12 hr dextromethorphan hydrobromide 60 mg / guaiFENesin 1200 mg extended release oral tablet (20 sources) Uncompetitive C-dypzwt-X-aspartate Receptor Antagonist, Sigma-1 Agonist Start: 02-20-2018 End: 03-15-2018 take 60-1200 mg by mouth every twelve hours as needed Dextromethorphan-Guaifenesin (Mucinex Dm) 60-1,200 mg tablet extended release 12 hr Discontinued 1 {tbl} PO Q12H as needed for cold symptoms 14 0 February 20, 2018 1:00am March 15, 2018 5:23pm take with full glass of water doxycycline hyclate 100 mg oral tablet (20 sources) Tetracycline-class Drug Start: 04-17-2019 End: 08-31-2019 take 1 tablet by mouth twice daily Doxycycline Hyclate 100 mg tablet Discontinued 100 mg PO TWICE A DAY 14 0 April 17, 2019 1:00am August 31, 2019 8:34am Levonorgestrel-Et hinyl Estrad (20 sources) Progestin, Estrogen, Progestin-containing Intrauterine Device Start: 02-15-2017 End: 08-05-2017 take 1 tablet by mouth once daily Levonorgestrel-Ethinyl Estrad Discontinued 1 TABLET PO DAILY February 15, 2017 5:31pm August 05, 2017 4:53pm Start: 02-15-2017 End: 08-05-2017 Levonorgestrel-Ethinyl Estra d 0 tablet Discontinued 1 {tbl} PO DAILY February 15, 2017 1:00am August 05, 2017 4:53pm Start: 02-15-2017 End: 08-05-2017 take 1 tablet by mouth once daily Levonorgestrel-Ethinyl Estrad Discontinued 1 TABLET PO DAILY February 15, 2017 12:00am August 05, 2017 3:53pm Start: 02-15-2017 End: 08-05-2017 take 1 tablet by mouth once daily Levonorgestrel-Ethinyl Estrad Discontinued 1 TABLET PO DAILY February 15, 2017 1:00am August 05, 2017 4:53pm famotidine 20 mg oral tablet (20 sources) Histamine-2 Receptor Antagonist Start: 04-28-2021 End: 10-23-2021 take 1 tablet by mouth at bedtime Famotidine 20 mg tablet Discontinued 20 mg PO AT BEDTIME 90 June 26, 2021 1:16pm October 23, 2021 9:44am acid reflux Start: 01-16-2019 End: 03-24-2021 take 1 tablet by mouth at bedtime Famotidine 20 mg tablet Discontinued 20 mg PO AT BEDTIME 90 June 04, 2020 2:45pm October 10, 2020 9:00pm FLUoxetine 20 mg oral capsule (20 sources) Serotonin Reuptake Inhibitor Start: 12-25-2020 End: 06-21-2022 take 10 mg by mouth once daily Fluoxetine 20 mg capsule Discontinued 10 mg PO DAILY 30 June 21, 2022 12:21pm June 21, 2022 12:22pm Start: 12-25-2020 End: 06-21-2022 take 10 mg by mouth once daily Fluoxetine Discontinued 10 MG PO DAILY June 21, 2022 12:21pm June 21, 2022 12:22pm Start: 10-15-2020 End: 12-25-2020 take 2 capsules by mouth once daily Fluoxetine 20 mg capsule Discontinued 40 mg PO DAILY 180 October 15, 2020 3:35pm December 25, 2020 3:03pm Check with primary doctor Start: 10-15-2020 End: 12-25-2020 take 40 mg by mouth once daily Fluoxetine Discontinued 40 MG PO DAILY 180 October 15, 2020 3:35pm December 25, 2020 3:03pm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 Performed By: #### L 500.3400 #### [facility] [address] [place], [address] PROTEIN,UR.RAN. < 6.0 Normal 0.0-12.0 [facility] Comment on above: Performed By: #### L 500.3400 #### [facility] [address] [place], [address] UR CREAT 47.00 mg/dL Normal 28.00-217.0 0 [facility] Comment on above: Performed By: #### L [id number] #### [facility] [address] [place], [address] RBC Auto (Bld) [#/Vol]Ordere d By: Aaron Matthews on 12-04-2024 RBC (Bld) [#/Vol] 4.55 10*6/uL 4.2-5.4 [facility] Random urine creatinine paty urement (mass/volume)Ordered By: Aaron Matthews on 12-04-2024 Creatinine Unsp time (U) [Mass/Vol] 47.00 mg/dL 28.00-217.0 0 [facility] Serum creatinine measurement (mass/volume)Ordered By: Aaron Cassie on 12-04-2024 Creatinine [Mass/Vol] 1.43 mg/dL High 0.70-1.20 [facility] Serum globulin measurementOr dered By: Aaron Cassie on 12-04-2024 Globulin (S) [Mass/Vol] 2.5 g/dL 2.2-4.2 [facility] Serum glucose measurement (m ass/volume)Ordered By: Aaron Cassie on 12-04-2024 Glucose [Mass/Vol] 98 mg/dL 70-99 [facility] Serum or plasma alanine peralta otransferase (ALT) measurementOrdered By: Aaron Cassie on 12-04-2024 ALT [Catalytic activity/Vol] 40 U/L High <35 [facility] Serum or plasma albumin paty urement (mass/volume)Ordered By: Aaron Cassie on 12-04-2024 Albumin [Mass/Vol] 4.5 g/dL 3.5-5.0 [facility] Serum or plasma alkaline elvia sphatase measurementOrdered By: [facility] Cassie on 12-04-2024 ALP [Catalytic activity/Vol] 88 U/L 35-104 [facility] Serum or plasma calcium paty urement (mass/volume)Ordered By: Aaron Cassie on 12-04-2024 Calcium [Mass/Vol] 9.7 mg/dL 7.6-11.0 [facility] Serum or plasma urea nitroge n measurement (mass/volume)Ordered By: Aaron Cassie on 12-04-2024 Urea nitrogen [Mass/Vol] 20 mg/dL High 4-19 [facility] Sodium levelOrdered By: [facility] Cassie on 12-04-2024 Sodium [Moles/Vol] 141 mmol/L 133-145 [facility] Total proteinOrdered By: Bridget Matthews on 12-04-2024 Protein [Mass/Vol] 6.9 g/dL 5.9-8.4 [facility] Urine albumin measurement wi th detection limit of 20 mg/L or less (mass/volume)Ordered By: Aaron Matthews on 12-04-2024 Albumin DL <= 20 mg/L (U) [Mass/Vol] 14.1 mg/L <20 mg/L [facility] Urine protein measurement (m ass/volume)Ordered By: Aaron Matthews on 12-04-2024 Protein (U) [Mass/Vol] mg/dL 0.0-12.0 [facility] Urine protein/creatinine mas s ratioOrdered By: Aaron Matthews on 12-04-2024 Protein/Creatinine (U) [Mass ratio] UNABLE TO CALCULATE mg/g CRE 0-200 [facility] Vitamin D,25 Hydroxyon 12-04 Vitamin D 25-OH 40.1 ng/mL Normal 30-100 [facility] Comment on above: Result Comment: Monika min D Status Deficiency: <20 ng/mL (50nmol/L) Insufficiency: 20-30 ng/mL (50-75 nmol/L) Sufficiency: 30-100 ng/mL (75-250 nmol/L) Toxicity: >100 ng/mL (>250 nmol/L) Performed By: #### L 3400.8000 #### [facility] [address] [place] [address], [id number] White blood cell (WBC) count Ordered By: Aaron Matthews on 12-04-2024 WBC (Bld) [#/Vol] 9.9 10*3/uL 4.4-11.0 [facility] Bilirubin directOrdered By: Aaron Matthews on 11-12-2024 Bilirubin.direct [Mass/Vol] 0.18 mg/dL 0.00-0.30 [facility] Bilirubin, totalOrdered By: Aaron Matthews on 11-12-2024 Bilirubin [Mass/Vol] 0.38 mg/dL 0.00-1.30 [facility] - Chemistry and C hemistry - challengeOrdered By: Aaron Matthews on 11-12-2024 AST [Catalytic activity/Vol] 23 U/L <32 [facility] Liver Profileon 11-12-2024 Albumin [Mass/Vol] 4.3 g/dL Normal 3.5-5.0 [facility] Comment on above: Performed By: #### L 500.3400 #### [facility] [address] [place], [address] ALK PHOS 87 U/L Normal 35-104 [facility] Comment on above: Performed By: #### L [id number] #### [facility] [address] [place], [address] ALT [Catalytic activity/Vol] 28 U/L Normal <=34 [facility] Comment on above: Performed By: #### [id number] #### [facility] [address] [place], [address] AST [Catalytic activity/Vol] 23 U/L Normal <=31 [facility] Comment on above: Performed By: #### [id number] #### [facility] [address] [place], [address] Bilirubin [Mass/Vol] 0.38 mg/dL Normal 0.00-1.30 [facility] Comment on above: Performed By: #### [id number] #### [facility] [address] [place], [address] Bilirubin.direct [Mass/Vol] 0.18 mg/dL Normal 0.00-0.30 [facility] Comment on above: Performed By: #### [id number] #### [facility] [address] [place], [address] Globulin (S) [Mass/Vol] 2.5 g/dL Normal 2.2-4.2 [facility] Comment on above: Performed By: #### [id number] [id number] #### [facility] [address] [place], [place], [address] T PROT 6.8 g/dL Normal 5.9-8.4 [facility] Comment on above: Performed By: #### L [id number] #### [facility] [address] [place], [place], [address] Serum globulin measurementOr dered By: Aaron Matthews on 11-12-2024 Globulin (S) [Mass/Vol] 2.5 g/dL 2.2-4.2 [facility] Serum or plasma alanine peralta otransferase (ALT) measurementOrdered By: [facility] Cassie on 11-12-2024 ALT [Catalytic activity/Vol] 28 U/L <35 [facility] Serum or plasma albumin paty urement (mass/volume)Ordered By: [facility] Cassie on 11-12-2024 Albumin [Mass/Vol] 4.3 g/dL 3.5-5.0 [facility] Serum or plasma alkaline elvia sphatase measurementOrdered By: [facility] Cassie on 11-12-2024 ALP [Catalytic activity/Vol] 87 U/L 35-104 [facility] Total proteinOrdered By: [facility] Cassie on 11-12-2024 Protein [Mass/Vol] 6.8 g/dL 5.9-8.4 [facility] Absolute lymphocyte countOrd ered By: Namrata Braden on 11-05-2024 Lymphocytes Auto (Unsp spec) [#/Vol] 3.30 10*3/uL 0.83-4.51 [facility] Absolute neutrophil countOrd ered By: Namrataanne-marie Braden on 11-05-2024 Neutrophils (Bld) [#/Vol] 4.1 10*3/uL 2.0-7.7 [facility] Anion gap in Serum or Plasma Ordered By: Namrata Braden on 11-05-2024 Anion gap [Moles/Vol] 12 mmol/L 5-15 [facility] Automated lymphocyte count a s percentage of total leukocytesOrdered By: Namrata Braden on 11-05-2024 Lymphocytes/100 WBC Auto (Unsp spec) 35.0 % 19-41 [facility] BUN/creatinine ratioOrdered By: Namrata Asiya on 11-05-2024 Urea nitrogen/Creatinine [Mass ratio] 12.3 mg/mg 10-20 [facility] Basophil percentageOrdered B y: Namrata Braden on 11-05-2024 Basophils/100 WBC (Bld) 1.3 % High 0-1 [facility] Bilirubin, totalOrdered By: Namrata Braden on 11-05-2024 Bilirubin [Mass/Vol] 0.41 mg/dL 0.00-1.30 [facility] CBC W/Diff, Automatedon Absolute Lymph 3.30 X10 3/uL Normal 0.83-4.51 [facility] Comment on above: Performed By: #### L [id number] #### [facility] [address] [place], [address] Absolute Neut 4.1 X10 3/uL Normal 2.0-7.7 [facility] Comment on above: Performed By: #### L [id number] #### [facility] [address] [place], [address] Basophils/100 WBC (Bld) 1.3 % High 0-1 [facility] Comment on above: Performed By: #### [id number] #### [facility] [address] [place], [address] Eosinophils/100 WBC (Bld) 8.7 % High 0-5 [facility] Comment on above: Performed By: #### L [id number] #### [facility] [address] [place], [address] Erythrocyte distribution width (RBC) [Ratio] 13.5 % Normal 11.6-14.6 [facility] Comment on above: Performed By: #### L [id number] #### [facility] [address] [place], [address] Hematocrit (Bld) [Volume fraction] 43.6 % Normal 37-47 [facility] Comment on above: Performed By: #### L [id number] #### [facility] [address] [place], [address] Hemoglobin (Bld) [Mass/Vol] 13.9 g/dL Normal 12.0-15.0 [facility] Comment on above: Performed By: #### L [id number] #### [facility] [address] [place], [address] IG% 0.300 Normal 0.0-0.9 [facility] Comment on above: Result Comment: IG% - Immature Granulocytes (promyelocytes, myelocytes and metamyelocytes) > 1% indicates that a LEFT SHIFT is Present. Performed By: #### L [id number] #### [facility] [address] [place], [address] Lymphocytes/100 WBC (Bld) 35.0 % Normal 19-41 [facility] Comment on above: Performed By: #### L [id number] #### [facility] [address] [place], [address] MCH (RBC) [Entitic mass] 29.0 pg Normal 27.0-32.0 [facility] Comment on above: Performed By: #### [id number] #### [facility] [address] [place], [address] MCHC (RBC) [Mass/Vol] 31.9 g/dL Low 32-36 [facility] Comment on above: Performed By: #### [id number] #### [facility] [address] [place], [address] MCV (RBC) [Entitic vol] 91.0 fL Normal 81-99 [facility] Comment on above: Performed By: #### [id number] [id number] #### [facility] [address] [place], [address] Monocytes/100 WBC (Bld) 11.0 % High 0-10 [facility] Comment on above: Performed By: #### L [id number] #### [facility] [address] [place], [address] Neutrophils/100 WBC (Bld) 43.7 % Low 47-70 [facility] Comment on above: Performed By: #### L 500.3400 #### [facility] [address] [place], [address] Nucleated RBC (Bld) [#/Vol] 0 10*3/uL Normal 0-5 [facility] Comment on above: Performed By: #### L [id number] #### [facility] [address] [place], [address] Platelet mean volume (Bld) [Entitic vol] 10.1 fL Normal 6.2-12.0 [facility] Comment on above: Performed By: #### L [id number] #### [facility] [address] [place], [address] Platelets (Bld) [#/Vol] 245 10*3/uL Normal 150-450 [facility] Comment on above: Performed By: #### L 500.3400 #### [facility] [address] [place], [address] RBC (Bld) [#/Vol] 4.79 10*6/uL Normal 4.2-5.4 [facility] Comment on above: Performed By: #### L 500.3400 #### [facility] [address] [place], [address] RDW SD 45.2 fl High 35.1-43.9 [facility] Comment on above: Performed By: #### L 500.3400 #### [facility] [address] [place], [address] WBC (Bld) [#/Vol] 9.4 10*3/uL Normal 4.4-11.0 [facility] Comment on above: Performed By: #### L 500.3400 #### [facility] [address] [place], [address] Carbon dioxide, total [Moles /volume] in Central venous bloodOrdered By: Namrata Braden on 11-05-2024 CO2 [Moles/Vol] 25.8 mmol/L 21.0-32.0 [facility] Chloride assayOrdered By: Beth Braden on 11-05-2024 Chloride [Moles/Vol] 106 mmol/L 98-108 [facility] Comprehensive Metabolic Prof ilon 11-05-2024 Albumin [Mass/Vol] 4.3 g/dL Normal 3.5-5.0 [facility] Comment on above: Performed By: #### L 500.3400 #### [facility] [address] [place], [address] Albumin/Globulin [Mass ratio] 1.9 {ratio} Normal 0.9-2.4 [facility] Comment on above: Performed By: #### L [id number] #### [facility] [address] [place], [address] ALK PHOS 83 U/L Normal 35-104 [facility] Comment on above: Performed By: #### L [id number] #### [facility] [address] [place], [address] ALT [Catalytic activity/Vol] 30 U/L Normal <=34 [facility] Comment on above: Performed By: #### [id number] #### [facility] [address] [place], [address] AST [Catalytic activity/Vol] 26 U/L Normal <=31 [facility] Comment on above: Performed By: #### L [id number] #### [facility] [address] [place], [address] Bilirubin [Mass/Vol] 0.41 mg/dL Normal 0.00-1.30 [facility] Comment on above: Performed By: #### L 500.3400 #### [facility] [address] [place], [address] BUN/CRE 12.3 RATIO Normal 10-20 [facility] Comment on above: Performed By: #### L 500.3400 #### [facility] [address] [place], [address] Calcium [Mass/Vol] 9.3 mg/dL Normal 7.6-11.0 [facility] Comment on above: Performed By: #### L 500.3400 #### [facility] [address] [place], [address] Chloride [Moles/Vol] 106 mmol/L Normal 98-108 [facility] Comment on above: Performed By: #### L 500.3400 #### [facility] [address] [place], [address] CO2 [Moles/Vol] 25.8 mmol/L Normal 21.0-32.0 [facility] Comment on above: Performed By: #### L 500.3400 #### [facility] [address] [place], [address] Creatinine [Mass/Vol] 1.32 mg/dL High 0.70-1.20 [facility] Comment on above: Performed By: #### L 500.3400 #### [facility] [address] [place], [address] GAP 12 Normal 5-15 [facility] Comment on above: Performed By: #### L 500.3400 #### [facility] [address] [place], [address] GFR/1.73 sq M.predicted among non-blacks MDRD (S/P/Bld) [Vol rate/Area] 47 mL/min/{1.73_m2} Low >60 [facility] Comment on above: Result Comment: mL/m in/1.73m2 CKD-EPI Creatinine Equation (2020) Performed By: #### L 500.3400 #### [facility] [address] [place], [address] Globulin (S) [Mass/Vol] 2.3 g/dL Normal 2.2-4.2 [facility] Comment on above: Performed By: #### L [id number] #### [facility] [address] [place], [address] Glucose [Mass/Vol] 81 mg/dL Normal 70-99 [facility] Comment on above: Performed By: #### L [id number] #### [facility] [address] [place], [address] Potassium [Moles/Vol] 4.5 mmol/L Normal 3.3-5.1 [facility] Comment on above: Performed By: #### L [id number] #### [facility] [address] [place], [address] Sodium [Moles/Vol] 144 mmol/L Normal 133-145 [facility] Comment on above: Performed By: #### L 500.3400 #### [facility] [address] [place], [address] T PROT 6.6 g/dL Normal 5.9-8.4 [facility] Comment on above: Performed By: #### L 500.3400 #### [facility] [address] [place], [address] Urea nitrogen [Mass/Vol] 16 mg/dL Normal 4-19 [facility] Comment on above: Performed By: #### L 500.3400 #### [facility] [address] [place], [address] Eosinophil percentageOrdered By: Namrata Braden on 11-05-2024 Eosinophils/100 WBC (Bld) 8.7 % High 0-5 [facility] Erythrocyte distribution wid th ratioOrdered By: Namrata Braden on 11-05-2024 Erythrocyte distribution width (RBC) [Ratio] 13.5 % 11.6-14.6 [facility] Erythrocyte distribution wid th standard deviationOrdered By: Namrata Braden on 11-05-2024 Erythrocyte distribution width (RBC) [Ratio] 45.2 fl High 35.1-43.9 [facility] Glomerular filtration rate ( GFR) estimation/1.73 sq m using serum, plasma, or whole bOrdered By: Namrata Braden on 11-05-2024 GFR/1.73 sq M.predicted among non-blacks MDRD (S/P/Bld) [Vol rate/Area] 47 mL/min/{1.73_m2} Low >60 [facility] Comment on above: mL/min/1.73m2 CKD-EP I Creatinine Equation (2020) Hematocrit Auto (Bld) [Volum e fraction]Ordered By: Namrata Braden on 11-05-2024 Hematocrit (Bld) [Volume fraction] 43.6 % 37-47 [facility] Hemoglobin measurementOrdere d By: Namrata Braden on 11-05-2024 Hemoglobin (Bld) [Mass/Vol] 13.9 g/dL 12.0-15.0 [facility] Immature granulocytes/100 WB C Auto (Bld)Ordered By: Namrata Braden on 11-05-2024 Immature granulocytes/100 WBC (Bld) 0.300 % 0.0-0.9 [facility] Comment on above: IG% - Immature Granu locytes (promyelocytes, myelocytes and metamyelocytes) > 1% indicates that a LEFT SHIFT is Present. Laboratory - Chemistry and C hemistry - challengeOrdered By: Namrata Braden on 11-05-2024 AST [Catalytic activity/Vol] 26 U/L <32 [facility] MCV (mean corpuscular volume ) determinationOrdered By: Namrata Braden on 11-05-2024 MCV (RBC) [Entitic vol] 91.0 fL 81-99 [facility] Mean corpuscular hemoglobin (MCH) determinationOrdered By: Namrata Braden on 11-05-2024 MCH (RBC) [Entitic mass] 29.0 pg 27.0-32.0 [facility] Mean corpuscular hemoglobin concentration (MCHC) determinationOrdered By: Namrata Braden on 11-05-2024 MCHC (RBC) [Mass/Vol] 31.9 g/dL Low 32-36 [facility] Mean platelet volume determi nationOrdered By: Namrata Braden on 11-05-2024 Platelet mean volume (Bld) [Entitic vol] 10.1 fL 6.2-12.0 [facility] Monocyte percentageOrdered B y: Namrata Braden on 11-05-2024 Monocytes/100 WBC (Bld) 11.0 % High 0-10 [facility] Neutrophil percentageOrdered By: Namrata Braden on 11-05-2024 Neutrophils/100 WBC (Bld) 43.7 % Low 47-70 [facility] Nucleated red blood cell per centageOrdered By: Namrata Braden on 11-05-2024 Nucleated RBC/100 WBC (Bld) [Ratio] 0 % 0-5 [facility] Platelet countOrdered By: Beth Braden on 11-05-2024 Platelets (Bld) [#/Vol] 245 10*3/uL 150-450 [facility] Potassium measurement (mass/ volume)Ordered By: Namrata Braden on 11-05-2024 Potassium (Unsp spec) [Mass/Vol] 4.5 mmol/L 3.3-5.1 [facility] RBC Auto (Bld) [#/Vol]Ordere d By: Namrata Braden on 11-05-2024 RBC (Bld) [#/Vol] 4.79 10*6/uL 4.2-5.4 [facility] Serum creatinine measurement (mass/volume)Ordered By: Namrata Braden on 11-05-2024 Creatinine [Mass/Vol] 1.32 mg/dL High 0.70-1.20 [facility] Serum globulin measurementOr dered By: Namrata Braden on 11-05-2024 Globulin (S) [Mass/Vol] 2.3 g/dL 2.2-4.2 [facility] Serum glucose measurement (m ass/volume)Ordered By: Namrata Braden on 11-05-2024 Glucose [Mass/Vol] 81 mg/dL 70-99 [facility] Serum or plasma alanine peralta otransferase (ALT) measurementOrdered By: Namrata Braden on 11-05-2024 ALT [Catalytic activity/Vol] 30 U/L <35 [facility] Serum or plasma albumin paty urement (mass/volume)Ordered By: Namrata Braden on 11-05-2024 Albumin [Mass/Vol] 4.3 g/dL 3.5-5.0 [facility] Serum or plasma albumin/glob ulin mass ratioOrdered By: Namrata Braden on 11-05-2024 Albumin/Globulin [Mass ratio] 1.9 {ratio} 0.9-2.4 [facility] Serum or plasma alkaline elvia sphatase measurementOrdered By: Namrata Braden on 11-05-2024 ALP [Catalytic activity/Vol] 83 U/L 35-104 [facility] Serum or plasma calcium paty urement (mass/volume)Ordered By: Namrata Braden on 11-05-2024 Calcium [Mass/Vol] 9.3 mg/dL 7.6-11.0 [facility] Serum or plasma urea nitroge n measurement (mass/volume)Ordered By: Namrata Braden on 11-05-2024 Urea nitrogen [Mass/Vol] 16 mg/dL 4-19 [facility] Sodium levelOrdered By: Jose Braden on 11-05-2024 Sodium [Moles/Vol] 144 mmol/L 133-145 [facility] Total proteinOrdered By: Tom Braden on 11-05-2024 Protein [Mass/Vol] 6.6 g/dL 5.9-8.4 [facility] White blood cell (WBC) count Ordered By: Namrata Braden on 11-05-2024 WBC (Bld) [#/Vol] 9.4 10*3/uL 4.4-11.0 [facility] Bilirubin directOrdered By: Aaron Matthews on 10-15-2024 Bilirubin.direct [Mass/Vol] 0.17 mg/dL 0.00-0.30 [facility] Bilirubin, totalOrdered By: Aaron Matthews on 10-15-2024 Bilirubin [Mass/Vol] 0.38 mg/dL 0.00-1.30 [facility] Laboratory - Chemistry and C hemistry - challengeOrdered By: Aaron Matthews on 10-15-2024 AST [Catalytic activity/Vol] 23 U/L <32 [facility] Liver Profileon 10-15-2024 Albumin [Mass/Vol] 4.1 g/dL Normal 3.5-5.0 [facility] Comment on above: Performed By: #### L 500.3400 #### [facility] [address] [place], [address] ALK PHOS 85 U/L Normal 35-104 [facility] Comment on above: Performed By: #### L 500.3400 #### [facility] [address] [place], [address] ALT [Catalytic activity/Vol] 33 U/L Normal <=34 [facility] Comment on above: Performed By: #### L 500.3400 #### [facility] [address] [place], [address] AST [Catalytic activity/Vol] 23 U/L Normal <=31 [facility] Comment on above: Performed By: #### L 500.3400 #### [facility] [address] [place], [address] Bilirubin [Mass/Vol] 0.38 mg/dL Normal 0.00-1.30 [facility] Comment on above: Performed By: #### L 500.3400 #### [facility] [address] [place], [address] Bilirubin.direct [Mass/Vol] 0.17 mg/dL Normal 0.00-0.30 [facility] Comment on above: Performed By: #### L 500.3400 #### [facility] [address] [place], [address] Globulin (S) [Mass/Vol] 2.2 g/dL Normal 2.2-4.2 [facility] Comment on above: Performed By: #### L 500.3400 #### [facility] [address] [place], [address] (392) T PROT 6.3 g/dL Normal 5.9-8.4 [facility] Comment on above: Performed By: #### L 500.3400 #### [facility] [address] [place], [address] Serum globulin measurementOr dered By: [facility] on 10-15-2024 Globulin (S) [Mass/Vol] 2.2 g/dL 2.2-4.2 [facility] Serum or plasma alanine peralta otransferase (ALT) measurementOrdered By: [facility] on 10-15-2024 ALT [Catalytic activity/Vol] 33 U/L <35 [facility] Serum or plasma albumin paty urement (mass/volume)Ordered By: [facility] on 10-15-2024 Albumin [Mass/Vol] 4.1 g/dL 3.5-5.0 [facility] Serum or plasma alkaline elvia sphatase measurementOrdered By: [facility] on 10-15-2024 ALP [Catalytic activity/Vol] 85 U/L 35-104 [facility] Total proteinOrdered By: [employer] on 10-15-2024 Protein [Mass/Vol] 6.3 g/dL 5.9-8.4 [facility] Knee 4 or More Viewson 10-08 Knee 4 or More Views [facility] Imaging Services [address] [place] [address] Knee 4 or More Views MR#: [id number] Acct: [id number] Name: ISI GENAO BHARAT Rep #: [id number] : 1965 F 59 From: Andrew Shea DO PCP: Dr. Nadine Salamanca MD Status: REG CLI Study: Knee 4 or More Views Date of Exam: 10/08/24 Exam# [id number] Ordering Dr: Ludivina Yang PROCEDURE: KNEE 4 OR MORE VIEWS 10/08/2024 REASON FOR EXAM: LEFT KNEE PAIN TECHNIQUE: KNEE 4 OR MORE VIEWS COMPARISON: None. FINDINGS: Bones: Normal mineralization. No fracture Joints: Joint cartilage intact. No significant periarticular Effusion: Small Soft tissues: Possible prepatellar soft tissue thickening Other: RAD/Knee 4 or More Views IMPRESSION: No acute osseous process. As above Reading Location: [facility] CC: Dr. Nadine Salamanca MD; BETH Astorga Stucco Applicator: Signed Normal [facility] Office Visit Reporton 2024 Office Visit Report [facility] [address] [place] [address] OFFICE VISIT Date of Service: 10/08/24 MR#: [id number] Acct: [id number] Patient: ISI GENAO Rep #: [id number] : 1965 Provider: BETH Whalen Age/Sex: 59/F Location[place] [facility] Status: Signed Intake Vital Signs 06/11/24 08:32 10/08/24 11:49 Height 5 ft 6 in BP 120/60 Position Sitting Respiration 18 Pulse 94 Temp 98.7 F Temp Source Oral Pulse Oximetry (%) 94 Oxygen Delivery Method room air Intake Visit Reasons: L KNEE PAIN Accompanied by: Self Is patient in pain?: Yes (walkin/10) Pain scale (1-10): 1 Allergies grass pollen Allergy (Intermediate, Verified 10/08/24 11:56) Other tree and shrub pollen Allergy (Intermediate, Verified 10/08/24 11:56) Other Medications ???Medication ???Instructions ???Recorded ???Confirmed ???Type ascorbic acid (vitamin C) 1,000 mg 1 g PO DAILY Check with primary 04/01/17 10/08/24 History tablet doctor aspirin 81 mg chewable tablet 162 mg (2 x 81 mg) PO DAILY #60 10/08/24 Rx tabs albuterol sulfate 90 mcg/actuation 2 puff inhalation Q6H PRN 10/08/24 Rx aerosol inhaler shortness of breath or wheezing #8.5 grams levocetirizine 5 mg tablet (Xyzal) 5 mg PO DAILY 11/03/22 10/08/24 History montelukast 10 mg tablet 10 mg PO DAILY 11/03/22 10/08/24 H istory multivitamin 1 tab PO DAILY 11/03/22 10/08/24 H istory fluoxetine 20 mg capsule 20 mg PO DAILY #90 caps 11/15/23 0 10/08/24 Rx rosuvastatin 40 mg tablet 40 mg PO QHS #90 tabs 01/06/2410/26 Rx hydroxychloroquine 200 mg tablet 200 mg PO BID 02/17/24 10/08/24 Hi story lisinopril 20 mg tablet 20 mg PO DAILY #90 tabs 02/17/24 0 10/08/24 Rx fluticasone propionate 50 2 spray intranasal DAILY Check 10/08/24 Rx mcg/actuation nasal with primary doctor #48 grams spray,suspension tolvaptan (polycys kidney dis) 60 See Rx Instructions PO PER PKG DI R 06/11/24 10/08/24 History mg (AM)/30 mg (PM) tablets (Jynarque) hydroxyzine HCl 25 mg tablet 25 mg PO QHS PRN Anxiety/Sleep #90 08/16/24 10/08/24 Rx tabs etanercept 50 mg/mL (1 mL) mg subcut 10/08/24 10/08/24 Histor y subcutaneous pen injector (Enbrel SureClick) prednisone 10 mg tablet 10 mg PO .COMPLEX #30 tabs 5 10/08/24 Rx Nurse's Note: Patient has left knee pain. Patient fell about 3 months ago on her Left knee and cut it up. Patient states her left knee has been popping and cracking. Patient states her left knee pain in the inner knee and then behind the knee. Paitent states the pain has gotten worse yesterday. Patient states no new injury to her knee to cause the pain to get worse. Patient states that she can't put weight on her knee. [facility] Medical History Obstructive sleep apnea Elevated antinuclear antibody (FRANK) level Hypersomnia Skin lesion of scalp Acute sinusitis, unspecified Borderline type 2 diabetes mellitus Blood glucose elevated Anxiety and depression Allergies Chronic sinusitis Sinusitis Bronchitis Cough Chest congestion Post-viral cough syndrome Health care maintenance Complement abnormality Occipital stroke Back pain History of bloody stools Kidney disease HTN (hypertension) Mitral valve prolapse Sciatica Hyperlipemia Seasonal allergies Surgical History History of delivery History of D C Normal colonoscopy Family History Father Heart disease aortic aneurysm at 38 Hyperlipemia Hypertension Kidney disease Grandmother Breast cancer Grandmother Cancer uterine Sister Brain aneurysm passed at 27 Grandfather CVA (cerebral vascular accident) Social History Smoking Status: Never smoker Electronic Cigarette Use: not used second hand exposure: No alcohol intake: current alcohol intake frequency: a few times a week Alcohol type: wine substance use type: does not use what type of physical activity do you participate in: walking frequency: daily HPI HPI Details: ISI GENAO, is a 59 F who presents to the office today for left knee pain. Patient states that she fell approximately 3 months ago and had a cut on her knee. She did not do anything for this. She states that the other day she woke up and had knee pain it is to the medial side of her left knee. It is to her upper third of her pope. It is also on top of the patella. She also notes that it clicks when she walks. She has not used any vbjy-xzu-btvicyd medication for this. ROS Const Constitutional: Positive for other (ROS negative x 6 except what is described above) Exam Con (more content not included)... Normal [facility] Liver Profileon 09-18-2024 Albumin [Mass/Vol] 4.2 g/dL Normal 3.5-5.0 [facility] Comment on above: Performed By: #### L 500.3400 #### [facility] [address] [place], [address] ALK PHOS 91 U/L Normal 35-104 [facility] Comment on above: Performed By: #### L 500.3400 #### [facility] [address] [place], [address] ALT [Catalytic activity/Vol] 31 U/L Normal <=34 [facility] Comment on above: Performed By: #### L 500.3400 #### [facility] [address] [place], [address] AST [Catalytic activity/Vol] 24 U/L Normal <=31 [facility] Comment on above: Performed By: #### L 500.3400 #### [facility] [address] [place], [address] Bilirubin [Mass/Vol] 0.43 mg/dL Normal 0.00-1.30 [facility] Comment on above: Performed By: #### L 500.3400 #### [facility] [address] [place], [address] Bilirubin.direct [Mass/Vol] 0.18 mg/dL Normal 0.00-0.30 [facility] Comment on above: Performed By: #### L 500.3400 #### [facility] [address] [place], [address] Globulin (S) [Mass/Vol] 2.4 g/dL Normal 2.2-4.2 [facility] Comment on above: Performed By: #### L 500.3400 #### [facility] [address] [place], [address] T PROT 6.6 g/dL Normal 5.9-8.4 [facility] Comment on above: Performed By: #### L 500.3400 #### [facility] [address] [place], [address] Bilirubin directOrdered By: Aaron Matthews on 09-17-2024 Bilirubin.direct [Mass/Vol] 0.18 mg/dL 0.00-0.30 [facility] Bilirubin, totalOrdered By: Aaron Matthews on 09-17-2024 Bilirubin [Mass/Vol] 0.43 mg/dL 0.00-1.30 [facility] Laboratory - Chemistry and C hemistry - challengeOrdered By: Aaron Matthews on 09-17-2024 AST [Catalytic activity/Vol] 24 U/L <32 [facility] Serum globulin measurementOr dered By: Aaron Matthews on 09-17-2024 Globulin (S) [Mass/Vol] 2.4 g/dL 2.2-4.2 [facility] Serum or plasma alanine peralta otransferase (ALT) measurementOrdered By: Aaron Matthews on 09-17-2024 ALT [Catalytic activity/Vol] 31 U/L <35 [facility] Serum or plasma albumin paty urement (mass/volume)Ordered By: Aaron Matthews on 09-17-2024 Albumin [Mass/Vol] 4.2 g/dL 3.5-5.0 [facility] Serum or plasma alkaline elvia sphatase measurementOrdered By: Aaron Matthews on 09-17-2024 ALP [Catalytic activity/Vol] 91 U/L 35-104 [facility] Total proteinOrdered By: Talon shaneka Cassie on 09-17-2024 Protein [Mass/Vol] 6.6 g/dL 5.9-8.4 [facility] Bilirubin directOrdered By: Aaron Matthews on 08-17-2024 Bilirubin.direct [Mass/Vol] 0.18 mg/dL 0.00-0.30 [facility] Bilirubin, totalOrdered By: Aaron Matthews on 08-17-2024 Bilirubin [Mass/Vol] 0.39 mg/dL 0.00-1.30 [facility] Laboratory - Chemistry and C hemistry - challengeOrdered By: Aaron Matthews on 08-17-2024 AST [Catalytic activity/Vol] 23 U/L <32 [facility] Liver Profileon 08-17-2024 Albumin [Mass/Vol] 4.4 g/dL Normal 3.5-5.0 [facility] Comment on above: Performed By: #### L 500.3400 #### [facility] [address] [place], [address] ALK PHOS 97 U/L Normal 35-104 [facility] Comment on above: Performed By: #### L 500.3400 #### [facility] [address] [place], [address] ALT [Catalytic activity/Vol] 29 U/L Normal <=34 [facility] Comment on above: Performed By: #### L 500.3400 #### [facility] [address] [place], [address] AST [Catalytic activity/Vol] 23 U/L Normal <=31 [facility] Comment on above: Performed By: #### L 500.3400 #### [facility] [address] [place], [address] Bilirubin [Mass/Vol] 0.39 mg/dL Normal 0.00-1.30 [facility] Comment on above: Performed By: #### L 500.3400 #### [facility] [address] [place], [address] Bilirubin.direct [Mass/Vol] 0.18 mg/dL Normal 0.00-0.30 [facility] Comment on above: Performed By: #### L 500.3400 #### [facility] [address] [place], [address] Globulin (S) [Mass/Vol] 2.5 g/dL Normal 2.2-4.2 [facility] Comment on above: Performed By: #### L 500.3400 #### [facility] [address] [place], [address] T PROT 6.9 g/dL Normal 5.9-8.4 [facility] Comment on above: Performed By: #### L 500.3400 #### [facility] [address] [place], [address] Serum globulin measurementOr dered [facility] Globulin (S) [Mass/Vol] 2.5 g/dL 2.2-4.2 [facility] Serum or plasma alanine peralta otransferase (ALT) measurementOrdered By: [facility] on 08-17-2024 ALT [Catalytic activity/Vol] 29 U/L <35 [facility] Serum or plasma albumin paty urement (mass/volume)Ordered By: [facility] on 08-17-2024 Albumin [Mass/Vol] 4.4 g/dL 3.5-5.0 [facility] Serum or plasma alkaline elvia sphatase measurementOrdered By: [facility] on 08-17-2024 ALP [Catalytic activity/Vol] 97 U/L 35-104 [facility] Total proteinOrdered By: [employer] on 08-17-2024 Protein [Mass/Vol] 6.9 g/dL 5.9-8.4 [facility] Quantiferon TB-Gold+on 08-04 QFT MITOGEN JUANITA > 10.00 Normal . [facility] Comment on above: Performed By: #### L 3400.8000 #### [facility] [address] [place], [address] QFT NIL VALUE 0.02 IU/mL Normal . [facility] Comment on above: Performed By: #### L 3400.8000 #### [facility] [address] [place] [place], [address] QFT TB GOLD+ Comment Normal . [facility] Comment on above: Result Comment: Franklyn tiFERON-TB Gold Plus is a qualitative indirect test for M tuberculosis infection (including disease) and is intended for use in conjunction with risk assessment, radiography, and other medical and diagnostic evaluations. The QuantiFERON-TB Gold Plus result is determined by subtracting the Nil value from either TB antigen (Ag) value. The Mitogen tube serves as a control for the test. Performed By: #### L 3400.8000 #### [facility] [address] [facility] [place], [address] QFT TB POS CRIT Negative Normal Negative [facility] Comment on above: Result Comment: No r esponse to M tuberculosis antigens detected. Infection with M tuberculosis is unlikely, but high risk individuals should be considered for additional testing (ATS/IDSA/CDC Clinical Practice Guidelines, 2017). The reference range is an Antigen minus Nil result of <0.35 IU/mL. The specimen received for QuantiFERON testing was incubated by the ordering institution. Specific procedures outlined in our Directory of Services and in the package insert for the QuantiFERON Gold (In Tube) test must be followed to enable for proper stimulation of cells for the production of interferon gamma. Chemiluminescence immunoassay methodology Performed at: [facility] [id number] [employer] Services Manager: Ismael Keith PhD, Phone: [phone] Performed By: #### L 3400.8000 #### [facility] [address] [place], [address] QFT TB1+ AG JUANITA 0.03 IU/mL Normal . [facility] Comment on above: Performed By: #### L 3400.8000 #### [facility] [address] [place], [address] QFT TB2+ AG JUANITA 0.04 IU/mL Normal . [facility] Comment on above: Performed By: #### L 3400.8000 #### [facility] [address] [place], [address] Chest PA and Lateralon 08-03 Chest PA and Lateral [facility] Imaging Services [address] [place] [address] Chest PA and Lateral MR#: [id number] Acct: [id number] Name: ISI GENAO Rep #: [id number] : 1965 F 59 From: Vernon Flood MD PCP: Dr. Nadine Salamanca MD Status: REG CLI Study: Chest PA and Lateral Date of Exam: 08/03/24 Exam# [id number] Ordering Dr: Namrata Braden MD PROCEDURE: CHEST PA AND LATERAL 08/03/2024 REASON FOR EXAM: INFLAMMATORY POLYARTHROPATHY TECHNIQUE: Frontal and lateral views of the chest. COMPARISON: 04/02/2022 FINDINGS: The lungs appear clear. Pulmonary vascularity appears within limits. No pleural effusion. The cardiac and mediastinal contours appear within limits. The visualized osseous structures appear within limits. RAD/Chest PA and Lateral IMPRESSION: No evidence of acute disease. Reading Location: [facility] CC: Dr. Nadine Salamanca MD; Dr. Namrata Braden MD Stucco Applicator: Signed Normal [facility] Anion gap in Serum or Plasma Ordered By: Aaron Matthews on 08-02-2024 Anion gap [Moles/Vol] 13 mmol/L 5- [facility] BUN/creatinine ratioOrdered By: Aaron Matthews on 08-02-2024 Urea nitrogen/Creatinine [Mass ratio] 14.0 mg/mg - [facility] CBC-Complete Blood Cnt No Di ffon 08-02-2024 Erythrocyte distribution width (RBC) [Ratio] 13.2 % Normal 11.6-14.6 [facility] Comment on above: Performed By: #### L 500.3600, L506.1001, L501.0900, L509.1000, L100.0500 #### [facility] [address] [place], [address] Hematocrit (Bld) [Volume fraction] 44.4 % Normal 37-47 [facility] Comment on above: Performed By: #### L 500.3600, L506.1001, L501.0900, L509.1000, L100.0500 #### [facility] [address] [place], [address] Hemoglobin (Bld) [Mass/Vol] 14.5 g/dL Normal 12.0-15.0 [facility] Comment on above: Performed By: #### L 500.3600, L506.1001, L501.0900, L509.1000, L100.0500 #### [facility] [address] [place], [address] MCH (RBC) [Entitic mass] 28.9 pg Normal 27.0-32.0 [facility] Comment on above: Performed By: #### L 500.3600, L506.1001, L501.0900, L509.1000, L100.0500 #### [facility] [address] [place], [address] MCHC (RBC) [Mass/Vol] 32.7 g/dL Normal 32-36 [facility] Comment on above: Performed By: #### L 500.3600, L506.1001, L501.0900, L509.1000, L100.0500 #### [facility] [address] [place], [address] MCV (RBC) [Entitic vol] 88.6 fL Normal 81-99 [facility] Comment on above: Performed By: #### L 500.3600, L506.1001, L501.0900, L509.1000, L100.0500 #### [facility] [address] [place], [address] Platelet mean volume (Bld) [Entitic vol] 9.7 fL Normal 6.2-12.0 [facility] Comment on above: Performed By: #### L 500.3600, L506.1001, L501.0900, L509.1000, L100.0500 #### [facility] [address] [place], [address] Platelets (Bld) [#/Vol] 279 10*3/uL Normal 150-450 [facility] Comment on above: Performed By: #### L 500.3600, L506.1001, L501.0900, L509.1000, L100.0500 #### [facility] [address] [place], [address] RBC (Bld) [#/Vol] 5.01 10*6/uL Normal 4.2-5.4 [facility] Comment on above: Performed By: #### L 500.3600, L506.1001, L501.0900, L509.1000, L100.0500 #### [facility] [address] [place], [address] RDW SD 42.7 fl Normal 35.1-43.9 [facility] Comment on above: Performed By: #### L 500.3600, L506.1001, L501.0900, L509.1000, L100.0500 #### [facility] [address] [place], [address] WBC (Bld) [#/Vol] 10.8 10*3/uL Normal 4.4-11.0 [facility] Comment on above: Performed By: #### L 500.3600, L506.1001, L501.0900, L509.1000, L100.0500 #### [facility] [address] [place], [address] Carbon dioxide, total [Moles /volume] in Central venous bloodOrdered By: Aaron Matthews on 08-02-2024 CO2 [Moles/Vol] 24.5 mmol/L 21.0-32.0 [facility] Chloride assayOrdered By: Talon Matthews on 08-02-2024 Chloride [Moles/Vol] 103 mmol/L 98-108 [facility] Erythrocyte distribution wid th ratioOrdered By: Aaron Matthews on 08-02-2024 Erythrocyte distribution width (RBC) [Ratio] 13.2 % 11.6-14.6 [facility] Erythrocyte distribution wid th standard deviationOrdered By: Aaron Matthews on 08-02-2024 Erythrocyte distribution width (RBC) [Ratio] 42.7 fl 35.1-43.9 [facility] Glomerular filtration rate ( GFR) estimation/1.73 sq m using serum, plasma, or whole bOrdered By: Aaron Matthews on 08-02-2024 GFR/1.73 sq M.predicted among non-blacks MDRD (S/P/Bld) [Vol rate/Area] 46 mL/min/{1.73_m2} Low >60 [facility] Comment on above: mL/min/1.73m2 CKD-EP I Creatinine Equation (2020) Hematocrit Auto (Bld) [Volum e fraction]Ordered By: Aaron Matthews on 08-02-2024 Hematocrit (Bld) [Volume fraction] 44.4 % 37-47 [facility] Hemoglobin measurementOrdere d By: Aaron Matthews on 08-02-2024 Hemoglobin (Bld) [Mass/Vol] 14.5 g/dL 12.0-15.0 [facility] MCV (mean corpuscular volume ) determinationOrdered By: Aaronlowell Matthews on 08-02-2024 MCV (RBC) [Entitic vol] 88.6 fL 81-99 [facility] Mean corpuscular hemoglobin (MCH) determinationOrdered By: [facility] Cassie on 08-02-2024 MCH (RBC) [Entitic mass] 28.9 pg 27.0-32.0 [facility] Mean corpuscular hemoglobin concentration (MCHC) determinationOrdered By: Aaronriddhi Matthews on 08-02-2024 MCHC (RBC) [Mass/Vol] 32.7 g/dL 32-36 [facility] Mean platelet volume determi nationOrdered By: Aaron Cassie on 08-02-2024 Platelet mean volume (Bld) [Entitic vol] 9.7 fL 6.2-12.0 [facility] PTHINon 08-02-2024 PTH 47 pg/mL Normal 11-61 [facility] Comment on above: Performed By: #### L 500.3600, L506.1001, L501.0900, L509.1000, L100.0500 #### [facility] [address] [place], [address] Platelet countOrdered By: Talon Matthews on 08-02-2024 Platelets (Bld) [#/Vol] 279 10*3/uL 150-450 [facility] Potassium measurement (mass/ volume)Ordered By: Aaron Matthews on 08-02-2024 Potassium (Unsp spec) [Mass/Vol] 4.8 mmol/L 3.3-5.1 [facility] Protein+Creatinine Ratio,Uri neon 08-02-2024 PROT:CRE RATIO UNABLE TO CALCULATE Normal 0-200 [facility] Comment on above: Performed By: #### L 3400.8000 #### [facility] [facility] [address] [place], [address] PROTEIN,UR.RAN. < 6.0 Normal 0.0-12.0 [facility] Comment on above: Performed By: #### L 3400.8000 #### [facility] [address] [place], [address] UR CREAT 31.20 mg/dL Normal 28.00-217.0 0 [facility] Comment on above: Performed By: #### L 3400.8000 #### [facility] [address] [place], [place], [id number] Qualitative QuantiFERON-TB g old in tube testOrdered By: Namrata Braden on 08-02-2024 M. tuberculosis tuberculin stim IFN-g Ql (Bld) 0.03 IU/mL . [facility] RBC Auto (Bld) [#/Vol]Ordere d By: Aaron Matthews on 08-02-2024 RBC (Bld) [#/Vol] 5.01 10*6/uL 4.2-5.4 [facility] Random urine creatinine paty urement (mass/volume)Ordered By: Aaron Matthews on 08-02-2024 Creatinine Unsp time (U) [Mass/Vol] 31.20 mg/dL 28.00-217.0 0 [facility] Renal Profileon 08-02-2024 Albumin [Mass/Vol] 4.5 g/dL Normal 3.5-5.0 [facility] Comment on above: Performed By: #### L 3400.8000 #### [facility] [address] [place], [address] BUN/CRE 14.0 RATIO Normal 10-20 [facility] Comment on above: Performed By: #### L 3400.8000 #### [facility] [address] [place], [address] Calcium [Mass/Vol] 9.7 mg/dL Normal 7.6-11.0 [facility] Comment on above: Performed By: #### L 3400.8000 #### [facility] [address] [place], [address] Chloride [Moles/Vol] 103 mmol/L Normal 98-108 [facility] Comment on above: Performed By: #### L 3400.8000 #### [facility] [address] [place], [address] CO2 [Moles/Vol] 24.5 mmol/L Normal 21.0-32.0 [facility] Comment on above: Performed By: #### L 3400.8000 #### [facility] [address] [place], [address] Creatinine [Mass/Vol] 1.34 mg/dL High 0.70-1.20 [facility] Comment on above: Performed By: #### L 3400.8000 #### [facility] [address] [place], [address] GAP 13 Normal 5-15 [facility] Comment on above: Performed By: #### L 3400.8000 #### [facility] [address] [place], [address] GFR/1.73 sq M.predicted among non-blacks MDRD (S/P/Bld) [Vol rate/Area] 46 mL/min/{1.73_m2} Low >60 [facility] Comment on above: Result Comment: mL/m in/1.73m2 CKD-EPI Creatinine Equation (2020) Performed By: #### L 3400.8000 #### [facility] [address] [place], [address] Glucose [Mass/Vol] 80 mg/dL Normal 70-99 [facility] Comment on above: Performed By: #### L 3400.8000 #### [facility] [address] [place], [address] Phosphate [Mass/Vol] 5.0 mg/dL High 2.7-4.5 [facility] Comment on above: Performed By: #### L 3400.8000 #### [facility] [address] [place], [address] Potassium [Moles/Vol] 4.8 mmol/L Normal 3.3-5.1 [facility] Comment on above: Performed By: #### L 3400.8000 #### [facility] [address] [place], [address] Sodium [Moles/Vol] 140 mmol/L Normal 133-145 [facility] Comment on above: Performed By: #### L 3400.8000 #### [facility] [address] [place], [address] Urea nitrogen [Mass/Vol] 19 mg/dL Normal 4-19 [facility] Comment on above: Performed By: #### L 3400.8000 #### [facility] [address] [place], [address] Serum creatinine measurement (mass/volume)Ordered By: Aaron Matthews on 08-02-2024 Creatinine [Mass/Vol] 1.34 mg/dL High 0.70-1.20 [facility] Serum glucose measurement (m ass/volume)Ordered By: Aaron Cassie on 08-02-2024 Glucose [Mass/Vol] 80 mg/dL 70-99 [facility] Serum or plasma albumin paty urement (mass/volume)Ordered By: [facility] Cassie on 08-02-2024 Albumin [Mass/Vol] 4.5 g/dL 3.5-5.0 [facility] Serum or plasma calcium paty urement (mass/volume)Ordered By: Aaron Cassie on 08-02-2024 Calcium [Mass/Vol] 9.7 mg/dL 7.6-11.0 [facility] Serum or plasma urea nitroge n measurement (mass/volume)Ordered By: [facility] Cassie on 08-02-2024 Urea nitrogen [Mass/Vol] 19 mg/dL 4-19 [facility] Sodium levelOrdered By: [facility] Cassie on 08-02-2024 Sodium [Moles/Vol] 140 mmol/L 133-145 [facility] Urine protein measurement (m ass/volume)Ordered By: [facility] Cassie on 08-02-2024 Protein (U) [Mass/Vol] mg/dL 0.0-12.0 [facility] Urine protein/creatinine mas s ratioOrdered By: [facility] Cassie on 08-02-2024 Protein/Creatinine (U) [Mass ratio] UNABLE TO CALCULATE mg/g CRE 0-200 [facility] Vitamin D,25 Hydroxyon 08-02 Vitamin D 25-OH 43.2 ng/mL Normal 30-100 [facility] Comment on above: Result Comment: Monika min D Status Deficiency: <20 ng/mL (50nmol/L) Insufficiency: 20-30 ng/mL (50-75 nmol/L) Sufficiency: 30-100 ng/mL (75-250 nmol/L) Toxicity: >100 ng/mL (>250 nmol/L) Performed By: #### L 9620.8000 #### [facility] [address] [place] [address], [address] White blood cell (WBC) count Ordered By: Aaron Matthews on 08-02-2024 WBC (Bld) [#/Vol] 10.8 10*3/uL 4.4-11.0 [facility] CNOVon 07-31-2024 CNOV Office Visit (OBGYWM) ISI GENAO ([id number]) 1965 F Date Time Provider Department 07/31/24 1:30 PM MOHINI SANCHEZ OBGYWM During your visit today, we recorded the following information about you: Blood pressure Weight Height 132/84 110.7 kg 1.656 m Mohini Sanchez APRN.CNP 07/31/2024 1:57 PM Signed Patient declined biomathematician. Isi is a 59 year old who presents for an annual gynecologic exam without complaints. Postmenopausal: yes since age 55 HRT use: No. Last Pap: 01/21/2020 normal HPV: 01/18/2020 negative History of abnormal no Last mammogram: 2023 today History of abnormal mammogram: Yes Sexually active: Yes OB History Gravida2 Para1 Term0 Preterm0 AB1 Living1 SAB1 IAB0 Ectopic0 Multiple0 Live Births0 Comment: Pt also had 2 Step- children FAMILY HISTORY Problem Relation Age of Onset Hypertension Father Coronary Artery Disease Father first PR/angioplasty age 40's -- MULTPLE interventions other (aortic anuerysm) Father age 38 other (polycystic kidney disease) Father other (brain anuerysm) Sister Cancer Maternal Grandmother ENDOMETRIAL CANCER Breast Cancer Paternal Grandmother other (Polycystic Kidney Disease) Paternal Aunt SOCIAL HISTORY Social History Tobacco Use Smoking status: Never Smokeless tobacco: Never Vaping Use Vaping status: Never Used Substance Use Topics Alcohol use: Yes Comment: [...] skin retraction Allergies and current medication updated:Yes SENSITIVE EXAM: The sensitive examination was discussed with the Patient or Patient's Authorized Blow Machine Tender Starch Spraying. As applicable, any other physician, advance practice provider, medical student, or other health professional student that will be observing or involved in the sensitive examination for educational or training purposes was discussed with the Patient or Authorized Blow Machine Tender Starch Spraying. The Patient or Authorized Blow Machine Tender Starch Spraying has agreed to proceed with the sensitive examination. (Sensitive examination includes inspection and/or palpation of the breasts, pelvis, prostate and anorectal regions). EXAM: BP 132/84 Ht 5' 5.197 (1.66m) Wt 244 lb (110.7kg) LMP 10/29/2020 BMI 40.36 kg/(m2). GENERAL: pleasant, female in no apparent distress HEENT: Normocephalic, atraumatic, mucus membranes moist, and no lesions DERMATOLOGY: Normal, without lesions, non-icteric, and non-hirsute BREAST: soft, non-tender, symmetric, no dominant mass, normal nipple-areolar complex, no lymphadenopathy, and no nipple discharge CHEST: Normal inspiratory effort ABDOMEN: soft, non-tender, and no masses PELVIC: external genitalia normal, normal Bartholin's glands, urethra, Esko's glands, no vulvar lesions, no cervical lesions, physiologic discharge present, normal appearing perineal body and perianal region BIMANUAL: uterus normal size, shape and consistency, no adnexal masses, and non-tender RECTOVAGINAL: deferred. NEURO: alert and oriented x3,exam grossly non-focal EXTREMITIES: normal ASSESSMENT/PLAN: 1) Health maintenance: Pap done with HPV. Mammogram ordered Mammogram up to date Nutrition, exercise and routine health maintenance exams reviewed. Calcium/Vitamin D supplementation information provided. Colon cancer screening: up to date with screening 2) Follow up one year or sooner as needed 3) vaginal Estrace ordered for pain with intercourse Mohini Sanchez APRN.SHADE MATCHER Referring Provider: MOHINI SANCHEZ [[id number]] Allergies As of Date: 07/31/2024 Noted Allergy Reaction GRASS POLLEN 05/24/2023 14 - Other: See Comments HAY FEVER (SEASONAL ALLERGIES) 01/08/2019 14 - Other: See Comments TREES 05/24/2023 14 - Other: See Comments Date Reviewed: 07/31/2024 Reviewed by: Neida Moser LPN - Fully Assessed Reason for Visit: Well Woman [1463] Primary Visit Diagnosis:Encounter for gynecological examination (general) (routine) without abnormal findings [Z01.419] Other Visit Diagnoses:Encounter for screening for human papillomavirus (HPV) [Z11.51] Pap smear for cervical cancer screening [Z12.4] Encounter for screening mammogram for breast cancer [Z12.31] Vaginal atrophy [N95.2] Order(s):ARMANDO SCREENING W MOMO [[id number]] Order #: [id number] FUTURE PAP TEST [[id number]] Order #: [id number]. #:[id number] estradiol (ESTRACE) 0.01 % (0.1 mg/gram) vaginal creamUse 0.5g vaginally at bedtime for 2 weeks then 1-3 time/weeks for maintenance.Disp: 42.5 gRfl: 2 Prescriptions as of 07/31/2024 - hydrOXYzine (more content not included)... Normal [facility] HIGH RISK HUMAN PAPILLOMA EMA (HPV), PCR FOR DETECTION AND GENOTYPINGon 07-31-2024 HPV 16 Ag Ql (Unsp spec) Not detected Normal Not detected [facility] Comment on above: Order Comment: Speci men Type: FLUID SPECIMEN Ordering Facility: [facility] Address: [address] [place] [address] Performed By: #### H PVHRT #### [facility] CLIA [id number] [address] [place] [address] [place] HPV 18 Ag Ql (Unsp spec) Not detected Normal Not detected [facility] Comment on above: Order Comment: Speci men Type: FLUID SPECIMEN Ordering Facility: [facility] Address: [address] [place] [address] Performed By: #### H PVHRT #### [facility] CLIA [id number] [address] [place] [address] [place] HPV 31+33+35+39+45+51+52+56 +58+59+66+68 DNA SIMONA+probe Ql (Cvx) Not detected Normal Not detected [facility] Comment on above: Order Comment: Speci men Type: FLUID SPECIMEN Ordering Facility: [facility] Address: [address] [place] [address] Result Comment: High Risk HPV Other Type includes HPV types 31, 33, 35, 39, 45, 51, 52, 56, 58, 59, 66 and 68. Performed By: #### H PVHRT #### [facility] CLIA [id number] [address] [place] [address] [place] [address] [place] ARMANDO SCREENING W TOMOon 07-31 ARMANDO SCREENING W MOMO * * *Final Report* * * DATE OF EXAM: Jul 31 2024 1:06PM [id number] - ARMANDO SCREENING W MOMO / PROCEDURE REASON: Breast cancer screening by mammogram * * * * Physician Interpretation * * * * RESULT: [place] [id number] #[id number] - ARMANDO SCREENING W MOMO HISTORY: 59 year-old patient seen for screening. Patient is asymptomatic in both breasts. Patient states no personal history of breast cancer. The patient has a family history of breast and ovarian cancer. COMPARISON STUDIES: The present examination has been compared to prior imaging studies dated 01/08/2019 (mammogram), 02/07/2020 (mammogram), 02/10/2021 (mammogram), 05/24/2022 (mammogram) and 06/01/2023 (mammogram). MAMMOGRAM TECHNIQUE: The study was acquired using full field digital technology and interpreted from soft copy. Digital Breast Tomosynthesis (DBT) images were obtained and used to assist in the interpretation of this examination. MAMMOGRAM FINDINGS: There are scattered areas of fibroglandular density. No suspicious masses, calcifications or other abnormalities are seen in either breast. There are no significant interval changes. IMPRESSION: There is no mammographic evidence of malignancy in either breast. Routine screening mammogram is recommended. Annual mammogram will be due in 1 year. BI-RADS Category 1: Negative RISK: Based on the Tyrer-Cuzick (TC) risk assessment model, this patient has a 14.8% lifetime risk of developing breast cancer, meaning they are at average risk for developing breast cancer. However, this is only an estimate based on available history provided on the patient's questionnaire. We encourage all patients to talk with their providers about these results, further recommendations for managing breast health, and appropriate supplemental screening options if the patient has dense breast tissue. Interpreting Radiologist: Carmen Hines M.D. Electronically signed on: 08/01/2024 Stucco Applicator: YENNIFER Transcribe Date/Time: Jul 31 2024 12:50P Dictated by: CARMEN HINES MD This examination was interpreted and the report reviewed and electronically signed by: CARMEN HINES MD on Aug 01 2024 10:32AM EST [id number] Normal [facility] PAP TESTon 07-31-2024 ADEQUACY Satisfactory for interpretation. Normal [facility] Comment on above: Order Comment: Charlotte grubbs Type: FLUID SPECIMEN Ordering Facility: [facility] Address: [address] [place] [address] Performed By: #### L [id number] #### [facility] CLIA [id number] [address] [place] [address] [place] CASE REPORT Normal [facility] Comment on above: Order Comment: Charlotte grubbs Type: FLUID SPECIMEN Ordering Facility: [facility] Address: [address] [place] [address] Result Comment: Gyne cologic Cytology Report Case: [id number] Authorizing Provider: Mohini Sanchez APRN.SHADE MATCHER Collected: 07/31/2024 01:59 PM Ordering Location: OB/Gynecology Received: 07/31/2024 04:04 PM First Screen: Deeds, Fadi, CT, ASCP Rescreen: Mendy Akers, CT, ASCP Specimen: Pap Test, ThinPrep, Cervix Performed By: #### L [id number] #### [facility] CLIA [id number] [place] [address] [place] [facility] CLINICAL HISTORY, CYTOLOGY, CIRCULATION CLERK Routine Exam Normal [facility] Comment on above: Order Comment: Charlotte grubbs Type: FLUID SPECIMEN Ordering Facility: [facility] Address: [address] [place] [address] Result Comment: Post Menopausal Performed By: #### L [id number] #### [facility] CLIA [id number] [address] [place] [address] STATES [facility] CYTOLOGY PAP OTHER INTERPRETATION Atrophic specimen. Normal [facility] Comment on above: Order Comment: Speci men Type: FLUID SPECIMEN Ordering Facility: [facility] Address: [address] [place] [address] Performed By: #### L [id number] #### [facility] CLIA [id number] [address] [place] [address] FINAL PERFORMING LAB Normal [facility] Comment on above: Order Comment: Speci men Type: FLUID SPECIMEN Ordering Facility: [facility] Address: [address] [place] [address] Result Comment: Tech nical component, timing adjuster screening performed at: [facility], [address] [place] [address] CLIA: [id number] Diagnostic interpretation performed at: [facility], [address] [place] [address] CLIA# [id number] It Systems Analyst Consultant: Juan F Pollack MD Performed By: #### L [id number] #### [facility] CLIA [id number] [address] [place] [address] STATES [facility] INTERPRETATION, CYTOLOGY, CIRCULATION CLERK Normal [facility] Comment on above: Order Comment: Speci men Type: FLUID SPECIMEN Ordering Facility: [facility] Address: [address] [place] [address] Result Comment: Nega tive for intraepithelial lesion or malignancy. at 0922 EDT Performed By: #### L [id number] #### [facility] CLIA [id number] [address] [place] [address] [place] PAP DISCLAIMER COMMENT The Pap Smear is a screening test for cervical cancer. False negative results occur with all screening tests, emphasizing the need for rescreening at recommended intervals, and clinical correlation. Normal [facility] Comment on above: Order Comment: Speci men Type: FLUID SPECIMEN Ordering Facility: [facility] Address: [address] [place] [address] Performed By: #### L [id number] #### [facility] CLIA [id number] [address] [place] [address] [place] PAP SECURITY AUDITOR COMMENT This specimen has been analyzed by the ThinPrep Imaging System, an automated imaging and review system, which assists the laboratory in evaluating cells on ThinPrep Pap tests. Following automated imaging, selected vivas from every slide are reviewed by a timing adjuster. Normal [facility] Comment on above: Order Comment: Speci men Type: FLUID SPECIMEN Ordering Facility: [facility] Address: [address] [place] [address] Performed By: #### L [id number] #### [facility] CLIA [id number] [address] [place] [address] [place] Absolute lymphocyte countOrd ered By: Namrata Braden on 07-23-2024 Lymphocytes Auto (Unsp spec) [#/Vol] 2.17 10*3/uL 0.83-4.51 [facility] Absolute neutrophil countOrd ered By: Namrata Braden on 07-23-2024 Neutrophils (Bld) [#/Vol] 7.4 10*3/uL 2.0-7.7 [facility] Anion gap in Serum or Plasma Ordered By: Namrata Braden on 07-23-2024 Anion gap [Moles/Vol] 12 mmol/L 5-15 [facility] Automated lymphocyte count a s percentage of total leukocytesOrdered By: Namrata Braden on 07-23-2024 Lymphocytes/100 WBC Auto (Unsp spec) 19.5 % 19- [facility] BUN/creatinine ratioOrdered By: Namrata Braden on 07-23-2024 Urea nitrogen/Creatinine [Mass ratio] 15.4 mg/mg 10-20 [facility] Basophil percentageOrdered B y: Namrata Braden on 07-23-2024 Basophils/100 WBC (Bld) 0.7 % 0-1 [facility] Bilirubin directOrdered By: Namrata Braden on 07-23-2024 Bilirubin.direct [Mass/Vol] 0.11 mg/dL 0.00-0.30 [facility] Bilirubin, Directon 07-24-19 Bilirubin.direct [Mass/Vol] 0.11 mg/dL Normal 0.00-0.30 [facility] Comment on above: Order Comment: DR. Elyse BARRAZA ORDERED CBCD AND CMPDR. CASSIE ORDERED LIVER Performed By: #### L 500.3400 #### [facility] [address] [place], [address] Bilirubin, totalOrdered By: Namrata Braden on 07-23-2024 Bilirubin [Mass/Vol] 0.21 mg/dL 0.00-1.30 [facility] CBC W/Diff, Automatedon 07-04 Absolute Lymph 2.17 X10 3/uL Normal 0.83-4.51 [facility] Comment on above: Order Comment: DR. Elyse BARRAZA ORDERED CBCD AND CMPDR. CASSIE ORDERED LIVER Performed By: #### L 500.3400 #### [facility] [address] [place], [address] Absolute Neut 7.4 X10 3/uL Normal 2.0-7.7 [facility] Comment on above: Order Comment: DR. Elyse BARRAZA ORDERED CBCD AND CMPDR. CASSIE ORDERED LIVER Performed By: #### L [id number] #### [facility] [address] [place], [address] Basophils/100 WBC (Bld) 0.7 % Normal 0-1 [facility] Comment on above: Order Comment: DR. Elyse BARRAZA ORDERED CBCD AND CMPDR. CASSIE ORDERED LIVER Performed By: #### L 500.3400 #### [facility] [address] [place], [address] Eosinophils/100 WBC (Bld) 3.5 % Normal 0-5 [facility] Comment on above: Order Comment: DR. Elyse BARRAZA ORDERED CBCD AND CMPDR. CASSIE ORDERED LIVER Performed By: #### L 500.3400 #### [facility] [address] [place], [address] Erythrocyte distribution width (RBC) [Ratio] 13.3 % Normal 11.6-14.6 [facility] Comment on above: Order Comment: DR. Elyse BARRAZA ORDERED CBCD AND CMPDR. CASSIE ORDERED LIVER Performed By: #### L 500.3400 #### [facility] [address] [place], [address] Hematocrit (Bld) [Volume fraction] 40.1 % Normal 37-47 [facility] Comment on above: Order Comment: DR. Elyse BARRAZA ORDERED CBCD AND CMPDR. CASSIE ORDERED LIVER Performed By: #### L 500.3400 #### [facility] [address] [place], [address] Hemoglobin (Bld) [Mass/Vol] 13.3 g/dL Normal 12.0-15.0 [facility] Comment on above: Order Comment: DR. Elyse BARRAZA ORDERED CBCD AND CMPDR. CASSIE ORDERED LIVER Performed By: #### L 500.3400 #### [facility] [address] [place], [address] IG% 0.400 Normal 0.0-0.9 [facility] Comment on above: Order Comment: DR. Elyse BARRAZA ORDERED CBCD AND CMPDR. CASSIE ORDERED LIVER Result Comment: IG% - Immature Granulocytes (promyelocytes, myelocytes and metamyelocytes) > 1% indicates that a LEFT SHIFT is Present. Performed By: #### L 500.3400 #### [facility] [address] [place], [address] Lymphocytes/100 WBC (Bld) 19.5 % Normal 19-41 [facility] Comment on above: Order Comment: DR. Elyse BARRAZA ORDERED CBCD AND CMPDR. CASSIE ORDERED LIVER Performed By: #### L 500.3400 #### [facility] [address] [place], [address] MCH (RBC) [Entitic mass] 28.9 pg Normal 27.0-32.0 [facility] Comment on above: Order Comment: DR. Elyse BARRAZA ORDERED CBCD AND CMPDR. CASSIE ORDERED LIVER Performed By: #### L 500.3400 #### [facility] [address] [place], [address] MCHC (RBC) [Mass/Vol] 33.2 g/dL Normal 32-36 [facility] Comment on above: Order Comment: DR. Elyse BARRAZA ORDERED CBCD AND CMPDR. CASSIE ORDERED LIVER Performed By: #### L 500.3400 #### [facility] [address] [place], [address] MCV (RBC) [Entitic vol] 87.2 fL Normal 81-99 [facility] Comment on above: Order Comment: DR. Elyse BARRAZA ORDERED CBCD AND CMPDR. CASSIE ORDERED LIVER Performed By: #### L 500.3400 #### [facility] [address] [place], [address] Monocytes/100 WBC (Bld) 9.1 % Normal 0-10 [facility] Comment on above: Order Comment: DR. Elyse BARRAZA ORDERED CBCD AND CMPDR. CASSIE ORDERED LIVER Performed By: #### L 500.3400 #### [facility] [address] [place], [address] Neutrophils/100 WBC (Bld) 66.8 % Normal 47-70 [facility] Comment on above: Order Comment: DR. Elyse BARRAZA ORDERED CBCD AND CMPDR. CASSIE ORDERED LIVER Performed By: #### L 500.3400 #### [facility] [address] [place], [address] Nucleated RBC (Bld) [#/Vol] 0 10*3/uL Normal 0-5 [facility] Comment on above: Order Comment: DR. Elyse BARRAZA ORDERED CBCD AND CMPDR. CASSIE ORDERED LIVER Performed By: #### L 500.3400 #### [facility] [address] [place], [address] Platelet mean volume (Bld) [Entitic vol] 9.9 fL Normal 6.2-12.0 [facility] Comment on above: Order Comment: DR. Elyse BARRAZA ORDERED CBCD AND CMPDR. CASSIE ORDERED LIVER Performed By: #### L 500.3400 #### [facility] [address] [place], [address] Platelets (Bld) [#/Vol] 236 10*3/uL Normal 150-450 [facility] Comment on above: Order Comment: DR. Elyse BARRAZA ORDERED CBCD AND CMPDR. CASSIE ORDERED LIVER Performed By: #### L 500.3400 #### [facility] [address] [place], [address] RBC (Bld) [#/Vol] 4.60 10*6/uL Normal 4.2-5.4 [facility] Comment on above: Order Comment: DR. Elyse BARRAZA ORDERED CBCD AND CMPDR. CASSIE ORDERED LIVER Performed By: #### L 500.3400 #### [facility] [address] [place], [address] RDW SD 42.0 fl Normal 35.1-43.9 [facility] Comment on above: Order Comment: DR. Elyse BARRAZA ORDERED CBCD AND CMPDR. CASSIE ORDERED LIVER Performed By: #### L 500.3400 #### [facility] [address] [place], [address] WBC (Bld) [#/Vol] 11.1 10*3/uL High 4.4-11.0 [facility] Comment on above: Order Comment: DR. Elyse BARRAZA ORDERED CBCD AND CMPDR. CASSIE ORDERED LIVER Performed By: #### L 500.3400 #### [facility] [address] [place], [address] Carbon dioxide, total [Moles /volume] in Central venous bloodOrdered By: Namrata Braden on 07-23-2024 CO2 [Moles/Vol] 22.9 mmol/L 21.0-32.0 [facility] Chloride assayOrdered By: Beth Braden on 07-23-2024 Chloride [Moles/Vol] 107 mmol/L 98-108 [facility] Comprehensive Metabolic Prof ilon 07-23-2024 Albumin [Mass/Vol] 4.3 g/dL Normal 3.5-5.0 [facility] Comment on above: Order Comment: DR. Elyse BARRAZA ORDERED CBCD AND CMPDR. CASSIE ORDERED LIVER Performed By: #### L 500.3400 #### [facility] [address] [place], [address] Albumin/Globulin [Mass ratio] 1.7 {ratio} Normal 0.9-2.4 [facility] Comment on above: Order Comment: DR. Elyse BARRAZA ORDERED CBCD AND CMPDR. CASSIE ORDERED LIVER Performed By: #### L 500.3400 #### [facility] [address] [place], [address] ALK PHOS 97 U/L Normal 35-104 [facility] Comment on above: Order Comment: DR. Elyse BARRAZA ORDERED CBCD AND CMPDR. CASSIE ORDERED LIVER Performed By: #### L 500.3400 #### [facility] [address] [place], [address] ALT [Catalytic activity/Vol] 27 U/L Normal <=34 [facility] Comment on above: Order Comment: DR. Elyse BARRAZA ORDERED CBCD AND CMPDR. CASSIE ORDERED LIVER Performed By: #### L 500.3400 #### [facility] [address] [place], [address] AST [Catalytic activity/Vol] 21 U/L Normal <=31 [facility] Comment on above: Order Comment: DR. Elyse BARRAZA ORDERED CBCD AND CMPDR. CASSIE ORDERED LIVER Performed By: #### L 500.3400 #### [facility] [address] [place], [address] Bilirubin [Mass/Vol] 0.21 mg/dL Normal 0.00-1.30 [facility] Comment on above: Order Comment: DR. Elyse BARRAZA ORDERED CBCD AND CMPDR. CASSIE ORDERED LIVER Performed By: #### L 500.3400 #### [facility] [address] [place], [address] BUN/CRE 15.4 RATIO Normal 10-20 [facility] Comment on above: Order Comment: DR. Elyse BARRAZA ORDERED CBCD AND CMPDR. CASSIE ORDERED LIVER Performed By: #### L 500.3400 #### [facility] [address] [place], [address] Calcium [Mass/Vol] 9.6 mg/dL Normal 7.6-11.0 [facility] Comment on above: Order Comment: DR. Elyse BARRAZA ORDERED CBCD AND CMPDR. CASSIE ORDERED LIVER Performed By: #### L 500.3400 #### [facility] [address] [place], [address] Chloride [Moles/Vol] 107 mmol/L Normal 98-108 [facility] Comment on above: Order Comment: DR. Elyse BARRAZA ORDERED CBCD AND CMPDR. CASSIE ORDERED LIVER Performed By: #### L 500.3400 #### [facility] [address] [place], [address] CO2 [Moles/Vol] 22.9 mmol/L Normal 21.0-32.0 [facility] Comment on above: Order Comment: DR. Elyse BARRAZA ORDERED CBCD AND CMPDR. CASSIE ORDERED LIVER Performed By: #### L 500.3400 #### [facility] [address] [place], [address] Creatinine [Mass/Vol] 1.29 mg/dL High 0.70-1.20 [facility] Comment on above: Order Comment: DR. Elyse BARRAZA ORDERED CBCD AND CMPDR. CASSIE ORDERED LIVER Performed By: #### L 500.3400 #### [facility] [address] [place], [address] GAP 12 Normal 5-15 [facility] Comment on above: Order Comment: DR. Elyse BARRAZA ORDERED CBCD AND CMPDR. CASSIE ORDERED LIVER Performed By: #### L 500.3400 #### [facility] [address] [place], [address] GFR/1.73 sq M.predicted among non-blacks MDRD (S/P/Bld) [Vol rate/Area] 48 mL/min/{1.73_m2} Low >60 [facility] Comment on above: Order Comment: DR. Elyse BARRAZA ORDERED CBCD AND CMPDR. CASSIE ORDERED LIVER Result Comment: mL/m in/1.73m2 CKD-EPI Creatinine Equation (2020) Performed By: #### L 500.3400 #### [facility] [address] [place], [address] Globulin (S) [Mass/Vol] 2.5 g/dL Normal 2.2-4.2 [facility] Comment on above: Order Comment: DR. Elyse BARRAZA ORDERED CBCD AND CMPDR. CASSIE ORDERED LIVER Performed By: #### L 500.3400 #### [facility] [address] [place], [address] Glucose [Mass/Vol] 90 mg/dL Normal 70-99 [facility] Comment on above: Order Comment: DR. Elyse BARRAZA ORDERED CBCD AND CMPDR. CASSIE ORDERED LIVER Performed By: #### L 500.3400 #### [facility] [address] [place], [address] Potassium [Moles/Vol] 4.7 mmol/L Normal 3.3-5.1 [facility] Comment on above: Order Comment: DR. Elyse BARRAZA ORDERED CBCD AND CMPDR. CASSIE ORDERED LIVER Performed By: #### L 500.3400 #### [facility] [address] [place], [address] Sodium [Moles/Vol] 141 mmol/L Normal 133-145 [facility] Comment on above: Order Comment: DR. Elyse BARRAZA ORDERED CBCD AND CMPDR. CASSIE ORDERED LIVER Performed By: #### L 500.3400 #### [facility] [address] [place], [address] T PROT 6.9 g/dL Normal 5.9-8.4 [facility] Comment on above: Order Comment: DR. Elyse BARRAZA ORDERED CBCD AND CMPDR. CASSIE ORDERED LIVER Performed By: #### L 500.3400 #### [facility] [address] [place], [address] Urea nitrogen [Mass/Vol] 20 mg/dL High 4-19 [facility] Comment on above: Order Comment: DR. Elyse BARRAZA ORDERED CBCD AND CMPDR. CASSIE ORDERED LIVER Performed By: #### L 500.3400 #### [facility] [address] [place], [address] Eosinophil percentageOrdered By: Namrata Braden on 07-23-2024 Eosinophils/100 WBC (Bld) 3.5 % 0-5 [facility] Erythrocyte distribution wid th ratioOrdered By: Namrata Braden on 07-23-2024 Erythrocyte distribution width (RBC) [Ratio] 13.3 % 11.6-14.6 [facility] Erythrocyte distribution wid th standard deviationOrdered By: Namrata Braden on 07-23-2024 Erythrocyte distribution width (RBC) [Ratio] 42.0 fl 35.1-43.9 [facility] Glomerular filtration rate ( GFR) estimation/1.73 sq m using serum, plasma, or whole bOrdered By: Namrata Braden on 07-23-2024 GFR/1.73 sq M.predicted among non-blacks MDRD (S/P/Bld) [Vol rate/Area] 48 mL/min/{1.73_m2} Low >60 [facility] Comment on above: mL/min/1.73m2 CKD-EP I Creatinine Equation (2020) Hematocrit Auto (Bld) [Volum e fraction]Ordered By: Namrata Braden on 07-23-2024 Hematocrit (Bld) [Volume fraction] 40.1 % 37-47 [facility] Hemoglobin measurementOrdere d By: Namrata Braden on 07-23-2024 Hemoglobin (Bld) [Mass/Vol] 13.3 g/dL 12.0-15.0 [facility] Immature granulocytes/100 WB C Auto (Bld)Ordered By: Namrata Braden on 07-23-2024 Immature granulocytes/100 WBC (Bld) 0.400 % 0.0-0.9 [facility] Comment on above: IG% - Immature Granu locytes (promyelocytes, myelocytes and metamyelocytes) > 1% indicates that a LEFT SHIFT is Present. Laboratory - Chemistry and C hemistry - challengeOrdered By: Namrata Braden on 07-23-2024 AST [Catalytic activity/Vol] 21 U/L <32 [facility] MCV (mean corpuscular volume ) determinationOrdered By: Namrata Braden 07-23-2024 MCV (RBC) [Entitic vol] 87.2 fL 81-99 [facility] Mean corpuscular hemoglobin (MCH) determinationOrdered By: Namrata Braden 07-23-2024 MCH (RBC) [Entitic mass] 28.9 pg 27.0-32.0 [facility] Mean corpuscular hemoglobin concentration (MCHC) determinationOrdered By: Namrata Braden on 07-23-2024 MCHC (RBC) [Mass/Vol] 33.2 g/dL 32-36 [facility] Mean platelet volume determi nationOrdered By: Namrata Braden 07-23-2024 Platelet mean volume (Bld) [Entitic vol] 9.9 fL 6.2-12.0 [facility] Monocyte percentageOrdered B y: Namrata Braden on 07-23-2024 Monocytes/100 WBC (Bld) 9.1 % 0-10 [facility] Neutrophil percentageOrdered By: Namrata Braden on 07-23-2024 Neutrophils/100 WBC (Bld) 66.8 % 47-70 [facility] Nucleated red blood cell per centageOrdered By: Namrata Braden on 07-23-2024 Nucleated RBC/100 WBC (Bld) [Ratio] 0 % 0-5 [facility] Platelet countOrdered By: Beth Braden on 07-23-2024 Platelets (Bld) [#/Vol] 236 10*3/uL 150-450 [facility] Potassium measurement (mass/ volume)Ordered By: Namrata Braden on 07-23-2024 Potassium (Unsp spec) [Mass/Vol] 4.7 mmol/L 3.3-5.1 [facility] RBC Auto (Bld) [#/Vol]Ordere d By: Namrata Braden on 07-23-2024 RBC (Bld) [#/Vol] 4.60 10*6/uL 4.2-5.4 [facility] Serum creatinine measurement (mass/volume)Ordered By: Namrata Braden on 07-23-2024 Creatinine [Mass/Vol] 1.29 mg/dL High 0.70-1.20 [facility] Serum globulin measurementOr dered By: Namrata Braden on 07-23-2024 Globulin (S) [Mass/Vol] 2.5 g/dL 2.2-4.2 [facility] Serum glucose measurement (m ass/volume)Ordered By: Namrata Braden on 07-23-2024 Glucose [Mass/Vol] 90 mg/dL 70-99 [facility] Serum or plasma alanine peralta otransferase (ALT) measurementOrdered By: Namrata Braden on 07-23-2024 ALT [Catalytic activity/Vol] 27 U/L <35 [facility] Serum or plasma albumin paty urement (mass/volume)Ordered By: Namrata Braden on 07-23-2024 Albumin [Mass/Vol] 4.3 g/dL 3.5-5.0 [facility] Serum or plasma albumin/glob ulin mass ratioOrdered By: Namrata Braden on 07-23-2024 Albumin/Globulin [Mass ratio] 1.7 {ratio} 0.9-2.4 [facility] Serum or plasma alkaline elvia sphatase measurementOrdered By: Namrata Braden on 07-23-2024 ALP [Catalytic activity/Vol] 97 U/L 35-104 [facility] Serum or plasma calcium paty urement (mass/volume)Ordered By: Narmata Braden on 07-23-2024 Calcium [Mass/Vol] 9.6 mg/dL 7.6-11.0 [facility] Serum or plasma urea nitroge n measurement (mass/volume)Ordered By: Namrata Braden on 07-23-2024 Urea nitrogen [Mass/Vol] 20 mg/dL High 4-19 [facility] Sodium levelOrdered By: Jose Braden on 07-23-2024 Sodium [Moles/Vol] 141 mmol/L 133-145 [facility] Total proteinOrdered By: Tom Braden on 07-23-2024 Protein [Mass/Vol] 6.9 g/dL 5.9-8.4 [facility] White blood cell (WBC) count Ordered By: Namrata Braden on 07-23-2024 WBC (Bld) [#/Vol] 11.1 10*3/uL High 4.4-11.0 [facility] Hemoglobin A1con 06-26-2024 HbA1c (Bld) [Mass fraction] 5.6 % Low <=5.6 [facility] Comment on above: Performed By: #### L 500.3400 #### [facility] [address] [place] [address], [address] Absolute lymphocyte countOrd ered By: Namrata Braden on 06-25-2024 Lymphocytes Auto (Unsp spec) [#/Vol] 2.31 10*3/uL 0.83-4.51 [facility] Absolute neutrophil countOrd ered By: Namrata Braden on 06-25-2024 Neutrophils (Bld) [#/Vol] 4.9 10*3/uL 2.0-7.7 [facility] Anion gap in Serum or Plasma Ordered By: Namrata Braden on 06-25-2024 Anion gap [Moles/Vol] 12 mmol/L 5- [facility] Automated lymphocyte count a s percentage of total leukocytesOrdered By: Namrata Braden on 06-25-2024 Lymphocytes/100 WBC Auto (Unsp spec) 27.2 % 19- [facility] BUN/creatinine ratioOrdered By: [facility] Asiya on 06-25-2024 Urea nitrogen/Creatinine [Mass ratio] 12.3 mg/mg 10- [facility] Basophil percentageOrdered B y: Namrata Braden on 06-25-2024 Basophils/100 WBC (Bld) 0.9 % 0-1 [facility] Bilirubin directOrdered By: Namrata Braden on 06-25-2024 Bilirubin.direct [Mass/Vol] 0.16 mg/dL 0.00-0.30 [facility] Bilirubin, Directon 06-26-19 25 Bilirubin.direct [Mass/Vol] 0.16 mg/dL Normal 0.00-0.30 [facility] Comment on above: Order Comment: DR. Elyse BARRAZA ORDERED CBCD AND CMP DR. MATTHEWS ORDERED LIVER Performed By: #### L 500.4050, L501.4700, L100.0100 #### [facility] [address] [place], [address] Bilirubin, totalOrdered By: Namrata Braden on 06-25-2024 Bilirubin [Mass/Vol] 0.35 mg/dL 0.00-1.30 [facility] CBC W/Diff, Automatedon 06-03 Absolute Lymph 2.31 X10 3/uL Normal 0.83-4.51 [facility] Comment on above: Order Comment: DR. Elyse BARRAZA ORDERED CBCD AND CMP DR. MATTHEWS ORDERED LIVER Performed By: #### L 500.4050, L501.4700, L100.0100 #### [facility] [address] [place], [address] Absolute Neut 4.9 X10 3/uL Normal 2.0-7.7 [facility] Comment on above: Order Comment: DR. Elyse BARRAZA ORDERED CBCD AND CMP DR. MATTHEWS ORDERED LIVER Performed By: #### L 500.4050, L501.4700, L100.0100 #### [facility] [address] [place], [address] Basophils/100 WBC (Bld) 0.9 % Normal 0-1 [facility] Comment on above: Order Comment: DR. Elyse BARRAZA ORDERED CBCD AND CMP DR. MATTHEWS ORDERED LIVER Performed By: #### L 500.4050, L501.4700, L100.0100 #### [facility] [address] [place], [address] Eosinophils/100 WBC (Bld) 5.6 % High 0-5 [facility] Comment on above: Order Comment: DR. Elyse BARRAZA ORDERED CBCD AND CMP DR. MATTHEWS ORDERED LIVER Performed By: #### L 500.4050, L501.4700, L100.0100 #### [facility] [address] [place], [address] Erythrocyte distribution width (RBC) [Ratio] 13.2 % Normal 11.6-14.6 [facility] Comment on above: Order Comment: DR. Elyse BARRAZA ORDERED CBCD AND CMP DR. MATTHEWS ORDERED LIVER Performed By: #### L 500.4050, L501.4700, L100.0100 #### [facility] [address] [place], [address] Hematocrit (Bld) [Volume fraction] 41.8 % Normal 37-47 [facility] Comment on above: Order Comment: DR. Elyse BARRAZA ORDERED CBCD AND CMP DR. MATTHEWS ORDERED LIVER Performed By: #### L 500.4050, L501.4700, L100.0100 #### [facility] [address] [place], [address] Hemoglobin (Bld) [Mass/Vol] 13.5 g/dL Normal 12.0-15.0 [facility] Comment on above: Order Comment: DR. Elyse BARRAZA ORDERED CBCD AND CMP DR. MATTHEWS ORDERED LIVER Performed By: #### L 500.4050, L501.4700, L100.0100 #### [facility] [address] [place], [address] IG% 0.500 Normal 0.0-0.9 [facility] Comment on above: Order Comment: DR. Elyse BARRAZA ORDERED CBCD AND CMP DR. MATTHEWS ORDERED LIVER Result Comment: IG% - Immature Granulocytes (promyelocytes, myelocytes and metamyelocytes) > 1% indicates that a LEFT SHIFT is Present. Performed By: #### L 500.4050, L501.4700, L100.0100 #### [facility] [address] [place], [address] Lymphocytes/100 WBC (Bld) 27.2 % Normal 19-41 [facility] Comment on above: Order Comment: DR. Elyse BARRAZA ORDERED CBCD AND CMP DR. MATTHEWS ORDERED LIVER Performed By: #### L 500.4050, L501.4700, L100.0100 #### [facility] [address] [place], [address] MCH (RBC) [Entitic mass] 28.8 pg Normal 27.0-32.0 [facility] Comment on above: Order Comment: DR. Elyse BARRAZA ORDERED CBCD AND CMP DR. MATTHEWS ORDERED LIVER Performed By: #### L 500.4050, L501.4700, L100.0100 #### [facility] [address] [place], [address] MCHC (RBC) [Mass/Vol] 32.3 g/dL Normal 32-36 [facility] Comment on above: Order Comment: DR. Elyse BARRAZA ORDERED CBCD AND CMP DR. MATTHEWS ORDERED LIVER Performed By: #### L 500.4050, L501.4700, L100.0100 #### [facility] [address] [place], [address] MCV (RBC) [Entitic vol] 89.3 fL Normal 81-99 [facility] Comment on above: Order Comment: DR. Elyse BARRAZA ORDERED CBCD AND CMP DR. MATTHEWS ORDERED LIVER Performed By: #### L 500.4050, L501.4700, L100.0100 #### [facility] [address] [place], [address] Monocytes/100 WBC (Bld) 8.7 % Normal 0-10 [facility] Comment on above: Order Comment: DR. Elyse BARRAZA ORDERED CBCD AND CMP DR. MATTHEWS ORDERED LIVER Performed By: #### L 500.4050, L501.4700, L100.0100 #### [facility] [address] [place], [address] Neutrophils/100 WBC (Bld) 57.1 % Normal 47-70 [facility] Comment on above: Order Comment: DR. Elyse BARRAZA ORDERED CBCD AND CMP DR. MATTHEWS ORDERED LIVER Performed By: #### L 500.4050, L501.4700, L100.0100 #### [facility] [address] [place], [address] Nucleated RBC (Bld) [#/Vol] 0 10*3/uL Normal 0-5 [facility] Comment on above: Order Comment: DR. Elyse BARRAZA ORDERED CBCD AND CMP DR. MATTHEWS ORDERED LIVER Performed By: #### L 500.4050, L501.4700, L100.0100 #### [facility] [address] [place], [address] Platelet mean volume (Bld) [Entitic vol] 10.1 fL Normal 6.2-12.0 [facility] Comment on above: Order Comment: DR. Elyse BARRAZA ORDERED CBCD AND CMP DR. MATTHEWS ORDERED LIVER Performed By: #### L 500.4050, L501.4700, L100.0100 #### [facility] [address] [place], [address] Platelets (Bld) [#/Vol] 234 10*3/uL Normal 150-450 [facility] Comment on above: Order Comment: DR. Elyse BARRAZA ORDERED CBCD AND CMP DR. MATTHEWS ORDERED LIVER Performed By: #### L 500.4050, L501.4700, L100.0100 #### [facility] [address] [place], [address] RBC (Bld) [#/Vol] 4.68 10*6/uL Normal 4.2-5.4 [facility] Comment on above: Order Comment: DR. Elyse BARRAZA ORDERED CBCD AND CMP DR. MATTHEWS ORDERED LIVER Performed By: #### L 500.4050, L501.4700, L100.0100 #### [facility] [address] [place], [address] RDW SD 42.6 fl Normal 35.1-43.9 [facility] Comment on above: Order Comment: DR. Elyse BARRAZA ORDERED CBCD AND CMP DR. MATTHEWS ORDERED LIVER Performed By: #### L 500.4050, L501.4700, L100.0100 #### [facility] [address] [place], [address] WBC (Bld) [#/Vol] 8.5 10*3/uL Normal 4.4-11.0 [facility] Comment on above: Order Comment: DR. Elyse BARRAZA ORDERED CBCD AND CMP DR. MATTHEWS ORDERED LIVER Performed By: #### L 500.4050, L501.4700, L100.0100 #### [facility] [address] [place], [address] Carbon dioxide, total [Moles /volume] in Central venous bloodOrdered By: Namrata Braden on 06-25-2024 CO2 [Moles/Vol] 23.8 mmol/L 21.0-32.0 [facility] Chloride assayOrdered By: Beth Braden on 06-25-2024 Chloride [Moles/Vol] 108 mmol/L 98-108 [facility] Comprehensive Metabolic Prof ilon 06-25-2024 Albumin [Mass/Vol] 4.2 g/dL Normal 3.5-5.0 [facility] Comment on above: Order Comment: DR. Elyse BARRAZA ORDERED CBCD AND CMP DR. MATTHEWS ORDERED LIVER Performed By: #### L 500.4050, L501.4700, L100.0100 #### [facility] [address] [place], [address] Albumin/Globulin [Mass ratio] 1.7 {ratio} Normal 0.9-2.4 [facility] Comment on above: Order Comment: DR. Elyse BARRAZA ORDERED CBCD AND CMP DR. MATTHEWS ORDERED LIVER Performed By: #### L 500.4050, L501.4700, L100.0100 #### [facility] [address] [place], [address] ALK PHOS 95 U/L Normal 35-104 [facility] Comment on above: Order Comment: DR. Elyse BARRAZA ORDERED CBCD AND CMP DR. MATTHEWS ORDERED LIVER Performed By: #### L 500.4050, L501.4700, L100.0100 #### [facility] [address] [place], [address] ALT [Catalytic activity/Vol] 23 U/L Normal <=34 [facility] Comment on above: Order Comment: DR. Elyse BARRAZA ORDERED CBCD AND CMP DR. MATTHEWS ORDERED LIVER Performed By: #### L 500.4050, [id number], L100.0100 #### [facility] [address] [place], [address] AST [Catalytic activity/Vol] 22 U/L Normal <=31 [facility] Comment on above: Order Comment: DR. Elyse BARRAZA ORDERED CBCD AND CMP DR. MATTHEWS ORDERED LIVER Performed By: #### L 500.4050, [id number], L100.0100 #### [facility] [address] [place], [address] Bilirubin [Mass/Vol] 0.35 mg/dL Normal 0.00-1.30 [facility] Comment on above: Order Comment: DR. Elyse BARRAZA ORDERED CBCD AND CMP DR. MATTHEWS ORDERED LIVER Performed By: #### L 500.4050, [id number], L100.0100 #### [facility] [address] [place], [address] BUN/CRE 12.3 RATIO Normal 10-20 [facility] Comment on above: Order Comment: DR. Elyse BARRAZA ORDERED CBCD AND CMP DR. MATTHEWS ORDERED LIVER Performed By: #### L 500.4050, [id number], L100.0100 #### [facility] [address] [place], [address] Calcium [Mass/Vol] 9.7 mg/dL Normal 7.6-11.0 [facility] Comment on above: Order Comment: DR. Elyse BARRAZA ORDERED CBCD AND CMP DR. MATTHEWS ORDERED LIVER Performed By: #### L 500.4050, [id number], L100.0100 #### [facility] [address] [place], [address] Chloride [Moles/Vol] 108 mmol/L Normal 98-108 [facility] Comment on above: Order Comment: DR. Elyse BARRAZA ORDERED CBCD AND CMP DR. MATTHEWS ORDERED LIVER Performed By: #### L 500.4050, [id number], L100.0100 #### [facility] [address] [place], [address] CO2 [Moles/Vol] 23.8 mmol/L Normal 21.0-32.0 [facility] Comment on above: Order Comment: DR. Elyse BARRAZA ORDERED CBCD AND CMP DR. MATTHEWS ORDERED LIVER Performed By: #### L 500.4050, [id number], L100.0100 #### [facility] [address] [place], [address] Creatinine [Mass/Vol] 1.27 mg/dL High 0.70-1.20 [facility] Comment on above: Order Comment: DR. Elyse BARRAZA ORDERED CBCD AND CMP DR. MATTHEWS ORDERED LIVER Performed By: #### L 500.4050, L501.4700, L100.0100 #### [facility] [address] [place], [address] GAP 12 Normal 5-15 [facility] Comment on above: Order Comment: DR. Elyse BARRAZA ORDERED CBCD AND CMP DR. MATTHEWS ORDERED LIVER Performed By: #### L 500.4050, L501.4700, L100.0100 #### [facility] [address] [place], [address] GFR/1.73 sq M.predicted among non-blacks MDRD (S/P/Bld) [Vol rate/Area] 49 mL/min/{1.73_m2} Low >60 [facility] Comment on above: Order Comment: DR. Elyse BARRAZA ORDERED CBCD AND CMP DR. MATTHEWS ORDERED LIVER Result Comment: mL/m in/1.73m2 CKD-EPI Creatinine Equation (2020) Performed By: #### L 500.4050, L501.4700, L100.0100 #### [facility] [address] [place], [address] Globulin (S) [Mass/Vol] 2.5 g/dL Normal 2.2-4.2 [facility] Comment on above: Order Comment: DR. Elyse BRARAZA ORDERED CBCD AND CMP DR. MATTHEWS ORDERED LIVER Performed By: #### L 500.4050, L501.4700, L100.0100 #### [facility] [address] [place], [address] Glucose [Mass/Vol] 91 mg/dL Normal 70-99 [facility] Comment on above: Order Comment: DR. Elyse BARRAZA ORDERED CBCD AND CMP DR. MATTHEWS ORDERED LIVER Performed By: #### L 500.4050, L501.4700, L100.0100 #### [facility] [address] [place], [address] Potassium [Moles/Vol] 4.6 mmol/L Normal 3.3-5.1 [facility] Comment on above: Order Comment: DR. Elyse BARRAZA ORDERED CBCD AND CMP DR. MATTHEWS ORDERED LIVER Performed By: #### L 500.4050, L501.4700, L100.0100 #### [facility] [address] [place], [address] Sodium [Moles/Vol] 143 mmol/L Normal 133-145 [facility] Comment on above: Order Comment: DR. Elyse BARRAZA ORDERED CBCD AND CMP DR. MATTHEWS ORDERED LIVER Performed By: #### L 500.4050, L501.4700, L100.0100 #### [facility] [address] [place], [address] T PROT 6.7 g/dL Normal 5.9-8.4 [facility] Comment on above: Order Comment: DR. Elyse BARRAZA ORDERED CBCD AND CMP DR. MATTHEWS ORDERED LIVER Performed By: #### L 500.4050, L501.4700, L100.0100 #### [facility] [address] [place], [address] Urea nitrogen [Mass/Vol] 16 mg/dL Normal 4-19 [facility] Comment on above: Order Comment: DR. Elyse BARRAZA ORDERED CBCD AND CMP DR. MATTHEWS ORDERED LIVER Performed By: #### L 500.4050, L501.4700, L100.0100 #### [facility] [address] [place], [address] Eosinophil percentageOrdered By: Namrata Braden on 06-25-2024 Eosinophils/100 WBC (Bld) 5.6 % High 0-5 [facility] Erythrocyte distribution wid th ratioOrdered By: Namrata Braden on 06-25-2024 Erythrocyte distribution width (RBC) [Ratio] 13.2 % 11.6-14.6 [facility] Erythrocyte distribution wid th standard deviationOrdered By: Namrata Braden on 06-25-2024 Erythrocyte distribution width (RBC) [Entitic vol] 42.6 fL 35.1-43.9 [facility] Erythrocyte distribution width (RBC) [Ratio] 42.6 fl 35.1-43.9 [facility] GFR/1.73 sq M.predicted marcelina g non-blacks MDRD (S/P/Bld) [Vol rate/Area]Ordered By: Namrata Braden on 06-25-2024 Estimated GFR (MDRD) Non-Af Amer 49 Low >60 [facility] Comment on above: mL/min/1.73m2 CKD-EP I Creatinine Equation (2020) Glomerular filtration rate ( GFR) estimation/1.73 sq m using serum, plasma, or whole bOrdered By: Namrata Braden on 06-25-2024 GFR/1.73 sq M.predicted among non-blacks MDRD (S/P/Bld) [Vol rate/Area] 49 mL/min/{1.73_m2} Low >60 [facility] Comment on above: mL/min/1.73m2 CKD-EP I Creatinine Equation (2020) Hematocrit Auto (Bld) [Volum e fraction]Ordered By: Namrata Braden on 06-25-2024 Hematocrit (Bld) [Volume fraction] 41.8 % 37-47 [facility] Hemoglobin A1c percentageOrd ered By: Nadine Salamanca on 06-25-2024 HbA1c (Bld) [Mass fraction] 5.6 % Low >5.7 [facility] Hemoglobin measurementOrdere d By: Namrata Braden on 06-25-2024 Hemoglobin (Bld) [Mass/Vol] 13.5 g/dL 12.0-15.0 [facility] Immature granulocytes/100 WB C Auto (Bld)Ordered By: Namrata Braden on 06-25-2024 Immature granulocytes/100 WBC (Bld) 0.500 % 0.0-0.9 [facility] Comment on above: IG% - Immature Granu locytes (promyelocytes, myelocytes and metamyelocytes) > 1% indicates that a LEFT SHIFT is Present. Kidney and Bladderon 025 Kidney and Bladder [facility] Imaging Services [address] [place], [place] [address] Kidney and Bladder MR#: [id number] Acct: [id number] Name: ISI GENAO Rep #: [id number] : 1965 F 59 From: Juan F Maloney MD PCP: Dr. Nadine Salamanca MD Status: REG CLI Study: Kidney and Bladder Date of Exam: 06/25/24 Exam# [id number] Ordering Dr: Aaron Matthews MD EXAM: US Retroperitoneal Limited, Renal CLINICAL INDICATION: POLYCYSTIC KIDNEY DISEASE TECHNIQUE: Real-time limited ultrasound of the retroperitoneum with image documentation. COMPARISON: No relevant prior studies available. FINDINGS: RIGHT KIDNEY: Multiple right renal cysts, largest measuring up to 6.5 cm. No stones. The right kidney measures 15.5 x 9.0 x 6.9 cm. LEFT KIDNEY: Left renal cysts, largest measuring up to 7.1 cm. No stones. The left kidney measures 15.3 x 8.7 x 7.1 cm. BLADDER: Urinary bladder appears normal. Prevoid volume 519 cc. US/Kidney and Bladder IMPRESSION: Multiple bilateral renal cysts. Reading Location: [facility] CC: Dr. Nadine Salamanca MD; Dr. 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: Signed Normal [facility] - Chemistry and C hemistry - challengeOrdered By: Namrata Braden on 06-25-2024 AST [Catalytic activity/Vol] 22 U/L <32 [facility] Lymphocytes Auto (Unsp spec) [#/Vol]Ordered By: Namrata Braden on 06-25-2024 Lymphocytes (Bld) [#/Vol] 2.31 10*3/uL 0.83-4.51 [facility] Lymphocytes/100 WBC Auto (Un sp spec)Ordered By: Namrata Braden on 06-25-2024 Lymphocytes/100 WBC (Bld) 27.2 % 19-41 [facility] MCV (mean corpuscular volume ) determinationOrdered By: Namrata Braden on 06-25-2024 MCV (RBC) [Entitic vol] 89.3 fL 81-99 [facility] Mean corpuscular hemoglobin (MCH) determinationOrdered By: Namrata Braden on 06-25-2024 MCH (RBC) [Entitic mass] 28.8 pg 27.0-32.0 [facility] Mean corpuscular hemoglobin concentration (MCHC) determinationOrdered By: Namrata Braden on 06-25-2024 MCHC (RBC) [Mass/Vol] 32.3 g/dL 32-36 [facility] Mean platelet volume determi nationOrdered By: Namrata Braden on 06-25-2024 Platelet mean volume (Bld) [Entitic vol] 10.1 fL 6.2-12.0 [facility] Monocyte percentageOrdered B y: Namrata Braden on 06-25-2024 Monocytes/100 WBC (Bld) 8.7 % 0-10 [facility] Neutrophil percentageOrdered By: Namrata Braden on 06-25-2024 Neutrophils/100 WBC (Bld) 57.1 % 47-70 [facility] Nucleated red blood cell per centageOrdered By: Namrata Braden on 06-25-2024 Nucleated RBC/100 WBC (Bld) [Ratio] 0 % 0-5 [facility] Platelet countOrdered By: Beth Braden on 06-25-2024 Platelets (Bld) [#/Vol] 234 10*3/uL 150-450 [facility] Potassium (Unsp spec) [Mass/ Vol]Ordered By: Namrata Braden on 06-25-2024 Potassium [Moles/Vol] 4.6 mmol/L 3.3-5.1 [facility] Potassium measurement (mass/ volume)Ordered By: Namrata Braden on 06-25-2024 Potassium (Unsp spec) [Mass/Vol] 4.6 mmol/L 3.3-5.1 [facility] RBC Auto (Bld) [#/Vol]Ordere d By: Namrata Braden on 06-25-2024 RBC (Bld) [#/Vol] 4.68 10*6/uL 4.2-5.4 [facility] Serum creatinine measurement (mass/volume)Ordered By: Namrata Braden on 06-25-2024 Creatinine [Mass/Vol] 1.27 mg/dL High 0.70-1.20 [facility] Serum globulin measurementOr dered By: Namrata Braden on 06-25-2024 Globulin (S) [Mass/Vol] 2.5 g/dL 2.2-4.2 [facility] Serum glucose measurement (m ass/volume)Ordered By: Namrata Braden on 06-25-2024 Glucose [Mass/Vol] 91 mg/dL 70-99 [facility] Serum or plasma alanine peralta otransferase (ALT) measurementOrdered By: Namrata Braden on 06-25-2024 ALT [Catalytic activity/Vol] 23 U/L <35 [facility] Serum or plasma albumin paty urement (mass/volume)Ordered By: Namrata Braden on 06-25-2024 Albumin [Mass/Vol] 4.2 g/dL 3.5-5.0 [facility] Serum or plasma albumin/glob ulin mass ratioOrdered By: Namrata Braden on 06-25-2024 Albumin/Globulin [Mass ratio] 1.7 {ratio} 0.9-2.4 [facility] Serum or plasma alkaline elvia sphatase measurementOrdered By: Namrata Braden on 06-25-2024 ALP [Catalytic activity/Vol] 95 U/L 35-104 [facility] Serum or plasma calcium paty urement (mass/volume)Ordered By: Namrata Braden on 06-25-2024 Calcium [Mass/Vol] 9.7 mg/dL 7.6-11.0 [facility] Serum or plasma urea nitroge n measurement (mass/volume)Ordered By: Namrata Braden on 06-25-2024 Urea nitrogen [Mass/Vol] 16 mg/dL 4-19 [facility] Sodium levelOrdered By: Jose Braden on 06-25-2024 Sodium [Moles/Vol] 143 mmol/L 133-145 [facility] Total proteinOrdered By: Tom Braden on 06-25-2024 Protein [Mass/Vol] 6.7 g/dL 5.9-8.4 [facility] White blood cell (WBC) count Ordered By: Namrata Braden on 06-25-2024 WBC (Bld) [#/Vol] 8.5 10*3/uL 4.4-11.0 [facility] Internal Medicine Office Vis anna 06-11-2024 Internal Medicine Office Visit [facility] [address] [place] [address] OFFICE VISIT Date of Service: 06/11/24 MR#: [id number] Acct: [id number] Name: ISI GENAO Rep #: [id number] : 1965 Provider: Dr. Nadine vick MD Age/Sex: 59/F [place] [facility] Status: Signed Intake Vital Signs 02/17/24 09:59 06/11/24 08:32 Height 5 ft 6 in 5 ft 6 in Weight: 244 lb BMI 39.4 BP 142/84 H Blood Pressure Location Lt brachial Position Sitting Respiration 18 Pulse 87 Pulse Source Monitor Temp 98.4 F Temp Source Temporal Pulse Oximetry (%) 94 Oxygen Delivery Method room air Intake Visit Reasons: 4 M FU Chief Complaint: 4 M FU Is patient in pain?: No Allergies grass pollen Allergy (Intermediate, Verified 06/11/24 08:28) Other tree and shrub pollen Allergy (Intermediate, Verified 06/11/24 08:28) Other Medications ???Medication ???Instructions ???Recorded ???Confirmed ???Type ascorbic acid (vitamin C) 1,000 mg 1 g PO DAILY Check with primary 04/01/17 06/11/24 History tablet doctor aspirin 81 mg chewable tablet 162 mg (2 x 81 mg) PO DAILY #60 06/11/24 Rx tabs albuterol sulfate 90 mcg/actuation 2 puff inhalation Q6H PRN 06/11/24 Rx aerosol inhaler shortness of breath or wheezing #8.5 grams levocetirizine 5 mg tablet (Xyzal) 5 mg PO DAILY 11/03/22 06/11/24 History montelukast 10 mg tablet 10 mg PO DAILY 11/03/22 06/11/24 H istory multivitamin 1 tab PO DAILY 11/03/22 06/11/24 H istory fluoxetine 20 mg capsule 20 mg PO DAILY #90 caps 11/15/23 0 06/11/24 Rx rosuvastatin 40 mg tablet 40 mg PO QHS #90 tabs 01/06/2401/26 Rx hydroxychloroquine 200 mg tablet 200 mg PO BID 02/17/24 06/11/24 Hi story hydroxyzine HCl 25 mg tablet 25 mg PO QHS PRN Anxiety/Sleep #90 02/17/24 06/11/24 Rx tabs lisinopril 20 mg tablet 20 mg PO DAILY #90 tabs 02/17/24 0 06/11/24 Rx fluticasone propionate 50 2 spray intranasal DAILY Check 06/11/24 Rx mcg/actuation nasal with primary doctor #48 grams spray,suspension tolvaptan (polycys kidney dis) 60 See Rx Instructions PO PER PKG DI R 06/11/24 06/11/24 History mg (AM)/30 mg (PM) tablets (Jynarque) Have you fallen in the past year?: No [facility] Medical History Obstructive sleep apnea Elevated antinuclear antibody (FRANK) level Hypersomnia Skin lesion of scalp Acute sinusitis, unspecified Borderline type 2 diabetes mellitus Blood glucose elevated Anxiety and depression Allergies Chronic sinusitis Sinusitis Bronchitis Cough Chest congestion Post-viral cough syndrome Health care maintenance Complement abnormality Occipital stroke Back pain History of bloody stools Kidney disease HTN (hypertension) Mitral valve prolapse Sciatica Hyperlipemia Seasonal allergies Surgical History History of delivery History of D C Normal colonoscopy Family History Father Heart disease aortic aneurysm at 38 Hyperlipemia Hypertension Kidney disease Grandmother Breast cancer Grandmother Cancer uterine Sister Brain aneurysm passed at 27 Grandfather CVA (cerebral vascular accident) Social History Smoking Status: Never smoker Electronic Cigarette Use: not used second hand exposure: No alcohol intake: current alcohol intake frequency: a few times a week Alcohol type: wine substance use type: does not use what type of physical activity do you participate in: walking frequency: daily HPI HPI Chief Complaint: 4 M FU Details: ISI GENAO, is a 59 F who presents to the office today for follow-up of her chronic conditions. No acute concerns at this time. Has been relatively stable since her last visit. History of sleep apnea, she continues to benefit from distantly. No concerns reported in that regard. Also history of anxiety and depression currently on fluoxetine. Also takes hydroxyzine at night for sleep, she states that this continues to be very beneficial. All other chronic medical conditions are largely stable. Continues to follow-up with nephrology and rheumatology. Does not find Plaquenil helpful. ROS Const Constitutional: No body ache, chills, excessive sweating, fatigue, fever(s), frequent falls, headache(s), snoring, weight change, sleep problems, abnormal sleep pattern or change in appetite Eyes Eyes: No blurry vision, change in vision, bulging eyes, floaters, visual disturbances, eye pain or Light sensitivity ENT ENT: No abnormal hearing, ear or mastoid pain, tinnitus, balance problems, nosebleed/epistaxis, nasal congestion, nasal d (more content not included)... Normal [facility] Protein+Creatinine Ratio,Uri neon 05-30-2024 PROT:CRE RATIO 120 mg/g CRE Normal 0-200 [facility] Comment on above: Performed By: #### L 500.3400 #### [facility] [address] [place], [place], [id number] UR CREAT 54.40 mg/dL Normal NO RANGE EST. [facility] Comment on above: Performed By: #### L 500.3400 #### [facility] [address] [place], [address] Urine protein measurement (m ass/volume)Ordered By: Aaron Matthews on 05-30-2024 Protein (U) [Mass/Vol] 7 mg/dL Normal <=12 [facility] Comment on above: Performed By: #### L 500.3400 #### [facility] [address] [place], [id number] (247) Creatinine Unsp time (U) [Ma ss/Vol]Ordered By: Aaron Matthews on 05-29-2024 Creatinine (U) [Mass/Vol] 54.40 mg/dL NO RANGE EST. [facility] Protein/Creatinine (U) [Mass ratio]Ordered By: Aaron Matthews on 05-29-2024 Urine Protein/Creatinine Ratio 120 mg/g CRE 0-200 [facility] Random urine creatinine paty urement (mass/volume)Ordered By: Aaron Matthews on 05-29-2024 Creatinine Unsp time (U) [Mass/Vol] 54.40 mg/dL NO RANGE EST. [facility] Urine protein/creatinine mas s ratioOrdered By: Aaron Matthews on 05-29-2024 Protein/Creatinine (U) [Mass ratio] 120 mg/g CRE 0-200 [facility] [id number] DOrdered By: Vinnie Matthews on 05-28-2024 Vitamin D 25-Hydroxy 37.4 ng/mL [facility] Comment on above: Vitamin D 25(OH) Sta tus Range Deficiency <20 ng/mL (50nmol/L) Insufficiency 20 - 30 ng/mL (50 - 75 nmol/L) Sufficiency 30 - 100 ng/mL (75 - 250 nmol/L) Toxicity >100 ng/mL (>250 nmol/L) Basic Metabolic Profile (BMP )on 05-28-2024 BUN/CRE 13.4 RATIO Normal 10-20 [facility] Comment on above: Performed By: #### L 500.3400 #### [facility] [address] [place], [address] CA,Total 9.3 mg/dL Normal 8.5-10.1 [facility] Comment on above: Performed By: #### L 500.3400 #### [facility] [address] [place], [address] Chloride [Moles/Vol] 109 mmol/L High 98-107 [facility] Comment on above: Performed By: #### L 500.3400 #### [facility] [address] [place], [address] CO2 [Moles/Vol] 25.0 mmol/L Normal 21.0-32.0 [facility] Comment on above: Performed By: #### L 500.3400 #### [facility] [address] [place], [address] Creatinine [Mass/Vol] 1.42 mg/dL High 0.55-1.02 [facility] Comment on above: Result Comment: The validity of the calculated GFR GFRAA in patients over 70 years has not been determined. Clinical correlation is essential. Performed By: #### L 500.3400 #### [facility] [address] [place], [address] EST GFR - AA 49 mL/min Low >60 [facility] Comment on above: Result Comment: Afri can Guinean GFR Calc Performed By: #### L 500.3400 #### [facility] [address] [place], [address] GAP 8 Normal 5-15 [facility] Comment on above: Performed By: #### L 500.3400 #### [facility] [address] [place], [address] GFR/1.73 sq M.predicted among non-blacks MDRD (S/P/Bld) [Vol rate/Area] 40 mL/min/{1.73_m2} Low >60 [facility] Comment on above: Result Comment: Non- GFR Calc Performed By: #### L 500.3400 #### [facility] [address] [place], [address] Glucose [Mass/Vol] 115 mg/dL High 74-106 [facility] Comment on above: Result Comment: Fast ing Glucose result from 100 to 125 mg/dL suggests IMPAIRED HOMEOSTASIS per A.D.A. criteria. Performed By: #### L 500.3400 #### [facility] [address] [place], [address] Potassium [Moles/Vol] 4.2 mmol/L Normal 3.5-5.1 [facility] Comment on above: Performed By: #### L 500.3400 #### [facility] [address] [place], [address] Sodium [Moles/Vol] 142 mmol/L Normal 136-145 [facility] Comment on above: Performed By: #### L 500.3400 #### [facility] [address] [place], [address] Urea nitrogen [Mass/Vol] 19 mg/dL High 7-18 [facility] Comment on above: Performed By: #### L 500.3400 #### [facility] [address] [place], [address] Bilirubin directOrdered By: Aaron Matthews on 05-28-2024 Bilirubin.direct [Mass/Vol] 0.11 mg/dL 0.00-0.30 [facility] Bilirubin, totalOrdered By: Aaron Matthews on 05-28-2024 Bilirubin [Mass/Vol] 0.40 mg/dL 0.20-1.00 [facility] Comment on above: For patients on eltr ombopag therapy, use of Dimension [place] TBIL is not recommended. Blood urea nitrogen (BUN)/cr eatinine ratioOrdered By: Aaron Matthews on 05-28-2024 Urea nitrogen/Creatinine [Mass ratio] 13.4 mg/mg 10-20 [facility] CBC-Complete Blood Cnt No Di ffon 05-28-2024 Erythrocyte distribution width (RBC) [Ratio] 13.1 % Normal 11.6-14.6 [facility] Comment on above: Performed By: #### L 500.3400 #### [facility] [address] [place], [address] Hematocrit (Bld) [Volume fraction] 42.5 % Normal 37-47 [facility] Comment on above: Performed By: #### L 500.3400 #### [facility] [address] [place], [address] Hemoglobin (Bld) [Mass/Vol] 13.8 g/dL Normal 12.0-15.0 [facility] Comment on above: Performed By: #### L 500.3400 #### [facility] [address] [place], [address] MCH (RBC) [Entitic mass] 29.0 pg Normal 27.0-32.0 [facility] Comment on above: Performed By: #### L 500.3400 #### [facility] [address] [place], [address] MCHC (RBC) [Mass/Vol] 32.5 g/dL Normal 32-36 [facility] Comment on above: Performed By: #### L 500.3400 #### [facility] [address] [place], [address] MCV (RBC) [Entitic vol] 89.3 fL Normal 81-99 [facility] Comment on above: Performed By: #### L 500.3400 #### [facility] [address] [place], [address] Platelet mean volume (Bld) [Entitic vol] 10.0 fL Normal 6.2-12.0 [facility] Comment on above: Performed By: #### L 500.3400 #### [facility] [address] [place], [address] Platelets (Bld) [#/Vol] 249 10*3/uL Normal 150-450 [facility] Comment on above: Performed By: #### L 500.3400 #### [facility] [address] [place], [address] RBC (Bld) [#/Vol] 4.76 10*6/uL Normal 4.2-5.4 [facility] Comment on above: Performed By: #### L 500.3400 #### [facility] [address] [place], [address] RDW SD 42.9 fl Normal 35.1-43.9 [facility] Comment on above: Performed By: #### L 500.3400 #### [facility] [address] [place], [address] WBC (Bld) [#/Vol] 10.1 10*3/uL Normal 4.4-11.0 [facility] Comment on above: Performed By: #### L 500.3400 #### [facility] [address] [place], [address] Carbon dioxide measurementOr dered By: Aaron Matthews on 05-28-2024 CO2 [Moles/Vol] 25.0 mmol/L 21.0-32.0 [facility] Chloride measurementOrdered By: Aaron Matthews on 05-28-2024 Chloride [Moles/Vol] 109 mmol/L High 98-107 [facility] Erythrocyte distribution wid th ratioOrdered By: Aaron Matthews on 05-28-2024 Erythrocyte distribution width (RBC) [Ratio] 13.1 % 11.6-14.6 [facility] Erythrocyte distribution wid th standard deviationOrdered By: Aaron Matthews on 05-28-2024 Erythrocyte distribution width (RBC) [Entitic vol] 42.9 fL 35.1-43.9 [facility] Erythrocyte distribution width (RBC) [Ratio] 42.9 fl 35.1-43.9 [facility] Estimated glomerular filtrat ion rate (GFR) AmericanOrdered By: Aaron Matthews on 05-28-2024 Estimated GFR (MDRD) Amer 49 mL/min Low >60 [facility] Comment on above: GFR Calc Glomerular filtration rate ( GFR) estimationOrdered By: Aaron Matthews on 05-28-2024 Estimated GFR (MDRD) Non-Af Amer 40 mL/min Low >60 [facility] Comment on above: Non- GFR Calc GFR/1.73 sq M.predicted among non-blacks MDRD (S/P/Bld) [Vol rate/Area] 40 mL/min/{1.73_m2} Low >60 [facility] Comment on above: Non- GFR Calc Glucose measurementOrdered B y: Aaron Matthews on 05-28-2024 Glucose [Mass/Vol] 115 mg/dL High 74-106 [facility] Comment on above: Fasting Glucose resu lt from 100 to 125 mg/dL suggests IMPAIRED HOMEOSTASIS per A.D.A. criteria. Hematocrit Auto (Bld) [Volum e fraction]Ordered By: Aaron Matthews on 05-28-2024 Hematocrit (Bld) [Volume fraction] 42.5 % 37-47 [facility] Hemoglobin measurementOrdere d By: Aaron Matthews on 05-28-2024 Hemoglobin (Bld) [Mass/Vol] 13.8 g/dL 12.0-15.0 [facility] Intact parathyroid hormone ( iPTH) measurementOrdered By: Aaron Matthews on 05-28-2024 Parathyroid Hormone (Intact) 86.6 pg/mL High 18.4-80.1 [facility] - Chemistry and C hemistry - challengeOrdered By: Aaron Matthews on 05-28-2024 AST [Catalytic activity/Vol] 24 U/L 15-37 [facility] Liver Profileon 05-28-2024 Albumin [Mass/Vol] 3.8 g/dL Normal 3.2-5.0 [facility] Comment on above: Performed By: #### L 500.8910 #### [facility] [address] [place], [address] ALK P 99 U/L Normal 45-117 [facility] Comment on above: Performed By: #### L 500.3400 #### [facility] [address] [place], [address] ALT [Catalytic activity/Vol] 36 U/L Normal 13-56 [facility] Comment on above: Performed By: #### L 500.3400 #### [facility] [address] [place], [address] AST [Catalytic activity/Vol] 24 U/L Normal 15-37 [facility] Comment on above: Performed By: #### L 500.3400 #### [facility] [address] [place], [address] Bilirubin [Mass/Vol] 0.40 mg/dL Normal 0.20-1.00 [facility] Comment on above: Result Comment: For patients on eltrombopag therapy, use of Dimension [place] TBIL is not recommended. Performed By: #### L 500.3400 #### [facility] [address] [place], [address] Bilirubin.direct [Mass/Vol] 0.11 mg/dL Normal 0.00-0.30 [facility] Comment on above: Performed By: #### L [id number] #### [facility] [address] [place], [address] Globulin (S) [Mass/Vol] 3.1 g/dL Normal 2.2-4.2 [facility] Comment on above: Performed By: #### L [id number] #### [facility] [address] [place], [address] T PROT 6.9 g/dL Normal 6.4-8.2 [facility] Comment on above: Performed By: #### L 500.3400 #### [facility] [address] [place], [address] MCV (mean corpuscular volume ) determinationOrdered By: Aaron Matthews on 05-28-2024 MCV (RBC) [Entitic vol] 89.3 fL 81-99 [facility] Mean corpuscular hemoglobin (MCH) determinationOrdered By: Aaron Matthews on 05-28-2024 MCH (RBC) [Entitic mass] 29.0 pg 27.0-32.0 [facility] Mean corpuscular hemoglobin concentration (MCHC) determinationOrdered By: Aaron Elama on 05-28-2024 MCHC (RBC) [Mass/Vol] 32.5 g/dL 32-36 [facility] Mean platelet volume determi nationOrdered By: Aaron Cassie on 05-28-2024 Platelet mean volume (Bld) [Entitic vol] 10.0 fL 6.2-12.0 [facility] PTHINon 05-28-2024 PTH 86.6 pg/mL High 18.4-80.1 [facility] Comment on above: Performed By: #### L 500.3400 #### [facility] [address] [place], [place], [id number] Phosphoruson 05-28-2024 Phosphate [Mass/Vol] 3.9 mg/dL Normal 2.5-4.9 [facility] Comment on above: Performed By: #### L 500.3400 #### [facility] [address] [place], [address] Phosphorus measurementOrdere d By: Aaron Cassie on 05-28-2024 Phosphorus Level 3.9 mg/dL 2.5-4.9 [facility] Platelet countOrdered By: Talon pes Cassie on 05-28-2024 Platelets (Bld) [#/Vol] 249 10*3/uL 150-450 [facility] Potassium measurementOrdered By: Aaronlowell Matthews on 05-28-2024 Potassium [Moles/Vol] 4.2 mmol/L 3.5-5.1 [facility] Protein+Creatinine Ratio,Uri neon 05-28-2024 PROT:CRE RATIO Normal 0-200 [facility] Comment on above: Result Comment: AKANKSHA ENT DROPPED URINE IN TOILET Performed By: #### L 500.3400 #### [facility] [address] [place], [address] PROTEIN,UR.RAN. Normal <11.9 [facility] Comment on above: Result Comment: AKANKSHA ENT DROPPED URINE IN TOILET Performed By: #### L 500.3400 #### [facility] [address] [place], [address] UR CREAT Normal NO RANGE EST. [facility] Comment on above: Result Comment: AKANKSHA ENT DROPPED URINE IN TOILET Performed By: #### L 500.3400 #### [facility] [address] [place], [address] RBC Auto (Bld) [#/Vol]Ordere d By: Aaron Matthews on 05-28-2024 RBC (Bld) [#/Vol] 4.76 10*6/uL 4.2-5.4 [facility] Serum anion gap measurementO rdered By: Aaron Matthews on 05-28-2024 Anion gap [Moles/Vol] 8 mmol/L 5-15 [facility] Serum globulin measurementOr dered By: Aaron Matthews on 05-28-2024 Globulin (S) [Mass/Vol] 3.1 g/dL 2.2-4.2 [facility] Serum or plasma alanine peralta otransferase (ALT) measurementOrdered By: Aaron Matthews on 05-28-2024 ALT [Catalytic activity/Vol] 36 U/L 13-56 [facility] Serum or plasma albumin paty urement (mass/volume)Ordered By: Aaron Matthews on 05-28-2024 Albumin [Mass/Vol] 3.8 g/dL 3.2-5.0 [facility] Serum or plasma alkaline elvia sphatase measurementOrdered By: Aaron Matthews on 05-28-2024 ALP [Catalytic activity/Vol] 99 U/L 45-117 [facility] Serum or plasma calcium ptay urement (mass/volume)Ordered By: Aaron Matthews on 05-28-2024 Calcium [Mass/Vol] 9.3 mg/dL 8.5-10.1 [facility] Serum or plasma creatinine m easurement (mass/volume)Ordered By: Aaron Matthews on 05-28-2024 Creatinine [Mass/Vol] 1.42 mg/dL High 0.55-1.02 [facility] Comment on above: The validity of the calculated GFR & GFRAA in patients over 70 years has not been determined. Clinical correlation is essential. Serum or plasma urea nitroge n measurement (mass/volume)Ordered By: Aaron Matthews on 05-28-2024 Urea nitrogen [Mass/Vol] 19 mg/dL High 7-18 [facility] Sodium levelOrdered By: Leighton Cassie on 05-28-2024 Sodium [Moles/Vol] 142 mmol/L 136-145 [facility] Total proteinOrdered By: [facility] Cassie on 05-28-2024 Protein [Mass/Vol] 6.9 g/dL 6.4-8.2 [facility] Vitamin D,25 Hydroxyon 05-28 Vitamin D 25-OH 37.4 ng/mL Normal [facility] Comment on above: Result Comment: Monika min D 25(OH) Status Range Deficiency <20 ng/mL (50nmol/L) Insufficiency 20 - 30 ng/mL (50 - 75 nmol/L) Sufficiency 30 - 100 ng/mL (75 - 250 nmol/L) Toxicity >100 ng/mL (>250 nmol/L) Performed By: #### L 500.5785 #### [facility] [address] [place] [address], [id number] White blood cell (WBC) count Ordered By: Aaron Matthews on 05-28-2024 WBC (Bld) [#/Vol] 10.1 10*3/uL 4.4-11.0 [facility] Bilirubin directOrdered By: Aaron Matthews on 04-30-2024 Bilirubin.direct [Mass/Vol] 0.10 mg/dL 0.00-0.30 [facility] Bilirubin, totalOrdered By: Aaron Matthews on 04-30-2024 Bilirubin [Mass/Vol] 0.40 mg/dL 0.20-1.00 [facility] Comment on above: For patients on eltr ombopag therapy, use of Dimension [place] TBIL is not recommended. Laboratory - Chemistry and C hemistry - challengeOrdered By: Aaron Matthews on 04-30-2024 AST [Catalytic activity/Vol] 19 U/L 15-37 [facility] Liver Profileon 04-30-2024 Albumin [Mass/Vol] 3.8 g/dL Normal 3.2-5.0 [facility] Comment on above: Performed By: #### L 500.3400 #### [facility] [address] [place], [address] ALK P 101 U/L Normal 45-117 [facility] Comment on above: Performed By: #### L [id number] #### [facility] [address] [place], [address] ALT [Catalytic activity/Vol] 41 U/L Normal 13-56 [facility] Comment on above: Performed By: #### L [id number] #### [facility] [address] [place], [address] AST [Catalytic activity/Vol] 19 U/L Normal 15-37 [facility] Comment on above: Performed By: #### L 500.3400 #### [facility] [address] [place], [address] Bilirubin [Mass/Vol] 0.40 mg/dL Normal 0.20-1.00 [facility] Comment on above: Result Comment: For patients on eltrombopag therapy, use of Dimension [place] TBIL is not recommended. Performed By: #### L 500.3400 #### [facility] [address] [place], [address] Bilirubin.direct [Mass/Vol] 0.10 mg/dL Normal 0.00-0.30 [facility] Comment on above: Performed By: #### L [id number] #### [facility] [address] [place], [place], [id number] Globulin (S) [Mass/Vol] 3.4 g/dL Normal 2.2-4.2 [facility] Comment on above: Performed By: #### L [id number] #### [facility] [address] [place], [address] T PROT 7.2 g/dL Normal 6.4-8.2 [facility] Comment on above: Performed By: #### L 500.3400 #### [facility] [address] [place], [place], [id number] Serum globulin measurementOr dered By: Aaron Matthews on 04-30-2024 Globulin (S) [Mass/Vol] 3.4 g/dL 2.2-4.2 [facility] Serum or plasma alanine perlata otransferase (ALT) measurementOrdered By: Aaron Matthews on 04-30-2024 ALT [Catalytic activity/Vol] 41 U/L 13-56 [facility] Serum or plasma albumin paty urement (mass/volume)Ordered By: Aaron Cassie on 04-30-2024 Albumin [Mass/Vol] 3.8 g/dL 3.2-5.0 [facility] Serum or plasma alkaline elvia sphatase measurementOrdered By: [facility] Cassie on 04-30-2024 ALP [Catalytic activity/Vol] 101 U/L 45-117 [facility] Total proteinOrdered By: [facility] Cassie on 04-30-2024 Protein [Mass/Vol] 7.2 g/dL 6.4-8.2 [facility] Absolute neutrophil countOrd ered By: Namrata Braden on 04-02-2024 Neutrophils (Bld) [#/Vol] 3.1 10*3/uL 2.0-7.7 [facility] Albumin to globulin ratioOrd ered By: Namrata Braden on 04-02-2024 Albumin/Globulin [Mass ratio] 1.1 {ratio} 0.9-2.4 [facility] Basophil percentageOrdered B y: Namrata Braden on 04-02-2024 Basophils/100 WBC (Bld) 1.1 % High 0-1 [facility] Bilirubin directOrdered By: Namrata Braden on 04-02-2024 Bilirubin.direct [Mass/Vol] 0.08 mg/dL 0.00-0.30 [facility] Bilirubin, Directon 04-02-20 24 Bilirubin.direct [Mass/Vol] 0.08 mg/dL Normal 0.00-0.30 [facility] Comment on above: Order Comment: DR. Vinnie KLEIN ORDERED LIVER PANELDR. BRADEN ORDERED CBCD AND CMP Performed By: #### L 500.3400 #### [facility] [address] [place], [place], [id number] ([phone]) Bilirubin, totalOrdered By: Namrata Braden on 04-02-2024 Bilirubin [Mass/Vol] 0.50 mg/dL 0.20-1.00 [facility] Comment on above: For patients on eltr ombopag therapy, use of Dimension [place] TBIL is not recommended. Blood urea nitrogen (BUN)/cr eatinine ratioOrdered By: Namrata Braden on 04-02-2024 Urea nitrogen/Creatinine [Mass ratio] 11.5 mg/mg 01-21 [facility] CBC W/Diff, Automatedon 03-06 Absolute Lymph 2.15 X10 3/uL Normal 0.83-4.51 [facility] Comment on above: Order Comment: DR. Vinnie KLEIN ORDERED LIVER PANELDR. BRADEN ORDERED CBCD AND CMP Performed By: #### L 500.3400 #### [facility] [address] [place], [address] Absolute Neut 3.1 X10 3/uL Normal 2.0-7.7 [facility] Comment on above: Order Comment: DR. Vinnie KLEIN ORDERED LIVER PANELDR. BRADEN ORDERED CBCD AND CMP Performed By: #### L 500.3400 #### [facility] [address] [place], [address] Basophils/100 WBC (Bld) 1.1 % High 0-1 [facility] Comment on above: Order Comment: DR. Vinnie KLEIN ORDERED LIVER PANELDRJose Eduardo BRADEN ORDERED CBCD AND CMP Performed By: #### L 500.3400 #### [facility] [address] [place], [address] Eosinophils/100 WBC (Bld) 6.5 % High 0-5 [facility] Comment on above: Order Comment: DR. Vinnie KLEIN ORDERED LIVER PANELDRJose Eduardo BRADEN ORDERED CBCD AND CMP Performed By: #### L 500.3400 #### [facility] [address] [place], [address] Erythrocyte distribution width (RBC) [Ratio] 12.4 % Normal 11.6-14.6 [facility] Comment on above: Order Comment: DR. Vinnie KLEIN ORDERED LIVER PANELDRJose Eduardo BRADEN ORDERED CBCD AND CMP Performed By: #### L 500.3400 #### [facility] [address] [place] [place], [address] Hematocrit (Bld) [Volume fraction] 42.3 % Normal 37-47 [facility] Comment on above: Order Comment: DR. Vinnie KLEIN ORDERED LIVER PANELDRJose Eduardo BRADEN ORDERED CBCD AND CMP Performed By: #### L 500.3400 #### [facility] [address] [place], [address] Hemoglobin (Bld) [Mass/Vol] 13.6 g/dL Normal 12.0-15.0 [facility] Comment on above: Order Comment: DR. Vinnie KLEIN ORDERED LIVER PANELDRJose Eduardo BRADEN ORDERED CBCD AND CMP Performed By: #### L 500.3400 #### [facility] [address] [place], [address] IG% 0.300 Normal 0.0-0.9 [facility] Comment on above: Order Comment: DR. Vinnie KLEIN ORDERED LIVER PANELDRJose Eduardo BRADEN ORDERED CBCD AND CMP Result Comment: IG% - Immature Granulocytes (promyelocytes, myelocytes and metamyelocytes) > 1% indicates that a LEFT SHIFT is Present. Performed By: #### L 500.3400 #### [facility] [address] [place], [address] Lymphocytes/100 WBC (Bld) 34.0 % Normal 19-41 [facility] Comment on above: Order Comment: DR. Vinnie KLEIN ORDERED LIVER PANELDRJose Eduardo BRADEN ORDERED CBCD AND CMP Performed By: #### L 500.3400 #### [facility] [address] [place], [address] MCH (RBC) [Entitic mass] 28.4 pg Normal 27.0-32.0 [facility] Comment on above: Order Comment: DR. Vinnie KLEIN ORDERED LIVER PANELDR. BRADEN ORDERED CBCD AND CMP Performed By: #### L 500.3400 #### [facility] [address] [place], [address] MCHC (RBC) [Mass/Vol] 32.2 g/dL Normal 32-36 [facility] Comment on above: Order Comment: DR. Vinnie KLEIN ORDERED LIVER PANELDR. BRADEN ORDERED CBCD AND CMP Performed By: #### L 500.3400 #### [facility] [address] [place], [address] MCV (RBC) [Entitic vol] 88.3 fL Normal 81-99 [facility] Comment on above: Order Comment: DR. Vinnie KLEIN ORDERED LIVER PANELDR. BRADEN ORDERED CBCD AND CMP Performed By: #### L 500.3400 #### [facility] [address] [place], [address] Monocytes/100 WBC (Bld) 8.5 % Normal 0-10 [facility] Comment on above: Order Comment: DR. Vinnie KLEIN ORDERED LIVER PANELDR. BRADEN ORDERED CBCD AND CMP Performed By: #### L 500.3400 #### [facility] [address] [place], [address] Neutrophils/100 WBC (Bld) 49.6 % Normal 47-70 [facility] Comment on above: Order Comment: DR. Vinnie KLEIN ORDERED LIVER PANELDR. BRADEN ORDERED CBCD AND CMP Performed By: #### L 500.3400 #### [facility] [address] [place], [address] Nucleated RBC (Bld) [#/Vol] 0 10*3/uL Normal 0-5 [facility] Comment on above: Order Comment: DR. Vinnie KLEIN ORDERED LIVER PANELDR. BRADEN ORDERED CBCD AND CMP Performed By: #### L 500.3400 #### [facility] [address] [place], [address] Platelet mean volume (Bld) [Entitic vol] 10.0 fL Normal 6.2-12.0 [facility] Comment on above: Order Comment: DR. Vinnie KLEIN ORDERED LIVER PANELDR. BRADEN ORDERED CBCD AND CMP Performed By: #### L 500.3400 #### [facility] [address] [place], [address] Platelets (Bld) [#/Vol] 231 10*3/uL Normal 150-450 [facility] Comment on above: Order Comment: DR. Vinnie KLEIN ORDERED LIVER PANELDR. BRADEN ORDERED CBCD AND CMP Performed By: #### L 500.3400 #### [facility] [address] [place], [address] RBC (Bld) [#/Vol] 4.79 10*6/uL Normal 4.2-5.4 [facility] Comment on above: Order Comment: DR. Vinnie KLEIN ORDERED LIVER PANELDR. BRADEN ORDERED CBCD AND CMP Performed By: #### L 500.3400 #### [facility] [address] [place], [address] RDW SD 40.0 fl Normal 35.1-43.9 [facility] Comment on above: Order Comment: DR. Vinnie KLEIN ORDERED LIVER PANELDR. BRADEN ORDERED CBCD AND CMP Performed By: #### L 500.3400 #### [facility] [address] [place] [place], [address] WBC (Bld) [#/Vol] 6.3 10*3/uL Normal 4.4-11.0 [facility] Comment on above: Order Comment: DR. Vinnie KLEIN ORDERED LIVER PANELDR. BRADEN ORDERED CBCD AND CMP Performed By: #### L 500.3400 #### [facility] [address] [place], [address] Carbon dioxide measurementOr dered By: Namrata Braden on 04-02-2024 CO2 [Moles/Vol] 26.0 mmol/L 21.0-32.0 [facility] Chloride measurementOrdered By: Namrata Braden on 04-02-2024 Chloride [Moles/Vol] 109 mmol/L High 98-107 [facility] Comprehensive Metabolic Prof ilon 04-02-2024 Albumin [Mass/Vol] 3.6 g/dL Normal 3.2-5.0 [facility] Comment on above: Order Comment: DR. Vinnie KLEIN ORDERED LIVER PANELDR. BRADEN ORDERED CBCD AND CMP Performed By: #### L 500.3400 #### [facility] [address] [place], [address] Albumin/Globulin [Mass ratio] 1.1 {ratio} Normal 0.9-2.4 [facility] Comment on above: Order Comment: DR. Vinnie KLEIN ORDERED LIVER PANELDR. BRADEN ORDERED CBCD AND CMP Performed By: #### L 500.3400 #### [facility] [address] [place], [address] ALK P 95 U/L Normal 45-117 [facility] Comment on above: Order Comment: DR. Vinnie KLEIN ORDERED LIVER PANELDR. BRADEN ORDERED CBCD AND CMP Performed By: #### L 500.3400 #### [facility] [address] [place], [address] ALT [Catalytic activity/Vol] 41 U/L Normal 13-56 [facility] Comment on above: Order Comment: DR. Vinnie KLEIN ORDERED LIVER PANELDRJose Eduardo BRADEN ORDERED CBCD AND CMP Performed By: #### L 500.3400 #### [facility] [address] [place], [address] AST [Catalytic activity/Vol] 23 U/L Normal 15-37 [facility] Comment on above: Order Comment: DR. Vinnie KLEIN ORDERED LIVER PANELDRJose Eduardo BRADEN ORDERED CBCD AND CMP Performed By: #### L 500.3400 #### [facility] [address] [place] [place], [address] Bilirubin [Mass/Vol] 0.50 mg/dL Normal 0.20-1.00 [facility] Comment on above: Order Comment: DR. Vinnie KLEIN ORDERED LIVER PANELDRJose Eduardo BRADEN ORDERED CBCD AND CMP Result Comment: For patients on eltrombopag therapy, use of Dimension [place] TBIL is not recommended. Performed By: #### L 500.3400 #### [facility] [address] [place], [address] BUN/CRE 11.5 RATIO Normal 10-20 [facility] Comment on above: Order Comment: DR. Vinnie KLEIN ORDERED LIVER PANELDRJose Eduardo BRADEN ORDERED CBCD AND CMP Performed By: #### L 500.3400 #### [facility] [address] [place], [address] CA,Total 9.5 mg/dL Normal 8.5-10.1 [facility] Comment on above: Order Comment: DR. Vinnie KLEIN ORDERED LIVER PANELDRJose Eduardo BRADEN ORDERED CBCD AND CMP Performed By: #### L 500.3400 #### [facility] [address] [place], [address] Chloride [Moles/Vol] 109 mmol/L High 98-107 [facility] Comment on above: Order Comment: DR. Vinnie KLEIN ORDERED LIVER PANELDRJose Eduardo BRADEN ORDERED CBCD AND CMP Performed By: #### L 500.3400 #### [facility] [address] [place], [address] CO2 [Moles/Vol] 26.0 mmol/L Normal 21.0-32.0 [facility] Comment on above: Order Comment: DR. Vinnie KLEIN ORDERED LIVER PANELDR. BRADEN ORDERED CBCD AND CMP Performed By: #### L 500.3400 #### [facility] [address] [place], [address] Creatinine [Mass/Vol] 1.39 mg/dL High 0.55-1.02 [facility] Comment on above: Order Comment: DR. Vinnie KLEIN ORDERED LIVER PANELDR. BRADEN ORDERED CBCD AND CMP Result Comment: The validity of the calculated GFR GFRAA in patients over 70 years has not been determined. Clinical correlation is essential. Performed By: #### L 500.3400 #### [facility] [address] [place] [place], [address] EST GFR - AA 50 mL/min Low >60 [facility] Comment on above: Order Comment: DR. Vinnie KLEIN ORDERED LIVER PANELDR. BRADEN ORDERED CBCD AND CMP Result Comment: Afri can Guinean GFR Calc Performed By: #### L 500.3400 #### [facility] [address] [place], [address] GAP 6 Normal 5-15 [facility] Comment on above: Order Comment: DR. Vinnie KLEIN ORDERED LIVER PANELDR. BRADEN ORDERED CBCD AND CMP Performed By: #### L 500.3400 #### [facility] [address] [place], [address] GFR/1.73 sq M.predicted among non-blacks MDRD (S/P/Bld) [Vol rate/Area] 41 mL/min/{1.73_m2} Low >60 [facility] Comment on above: Order Comment: DR. Vinnie KLEIN ORDERED LIVER PANELDRJose Eduardo BRADEN ORDERED CBCD AND CMP Result Comment: Non- GFR Calc Performed By: #### L 500.3400 #### [facility] [address] [place], [address] Globulin (S) [Mass/Vol] 3.3 g/dL Normal 2.2-4.2 [facility] Comment on above: Order Comment: DR. Vinnie KLEIN ORDERED LIVER PANELDRJose Eduardo BRADEN ORDERED CBCD AND CMP Performed By: #### L 500.3400 #### [facility] [address] [place], [address] Glucose [Mass/Vol] 109 mg/dL High 74-106 [facility] Comment on above: Order Comment: DR. Vinnie KLEIN ORDERED LIVER PANELDRJose Eduardo BRADEN ORDERED CBCD AND CMP Result Comment: Fast ing Glucose result from 100 to 125 mg/dL suggests IMPAIRED HOMEOSTASIS per A.D.A. criteria. Performed By: #### L 500.3400 #### [facility] [address] [place], [address] Potassium [Moles/Vol] 4.2 mmol/L Normal 3.5-5.1 [facility] Comment on above: Order Comment: DR. Vinnie KLEIN ORDERED LIVER PANELDRJose Eduardo BRADEN ORDERED CBCD AND CMP Performed By: #### L 500.3400 #### [facility] [address] [place], [address] Sodium [Moles/Vol] 141 mmol/L Normal 136-145 [facility] Comment on above: Order Comment: DR. Vinnie KLEIN ORDERED LIVER PANELDR. BRADEN ORDERED CBCD AND CMP Performed By: #### L 500.3400 #### [facility] [address] [place], [address] T PROT 6.9 g/dL Normal 6.4-8.2 [facility] Comment on above: Order Comment: DR. Vinnie KLEIN ORDERED LIVER PANELDR. VELLANKI ORDERED CBCD AND CMP Performed By: #### L 500.3400 #### [facility] [address] [place], [place], [address] Urea nitrogen [Mass/Vol] 16 mg/dL Normal 7-18 [facility] Comment on above: Order Comment: DR. Vinnie KLEIN ORDERED LIVER PANELDR. BRADEN ORDERED CBCD AND CMP Performed By: #### L 500.3400 #### [facility] [address] [place], [address] Eosinophil percentageOrdered By: Namrata Braden on 04-02-2024 Eosinophils/100 WBC (Bld) 6.5 % High 0-5 [facility] Erythrocyte distribution wid th ratioOrdered By: Namrata Braden on 04-02-2024 Erythrocyte distribution width (RBC) [Ratio] 12.4 % 11.6-14.6 [facility] Erythrocyte distribution wid th standard deviationOrdered By: Namrata Braden on 04-02-2024 Erythrocyte distribution width (RBC) [Entitic vol] 40.0 fL 35.1-43.9 [facility] Estimated glomerular filtrat ion rate (GFR) AmericanOrdered By: Namrata Braden on 04-02-2024 Estimated GFR (MDRD) Amer 50 mL/min Low >60 [facility] Comment on above: GFR Calc Glomerular filtration rate ( GFR) estimationOrdered By: Namrata Braden on 04-02-2024 Estimated GFR (MDRD) Non-Af Amer 41 mL/min Low >60 [facility] Comment on above: Non- GFR Calc Glucose measurementOrdered B y: Namrata Braden on 04-02-2024 Glucose [Mass/Vol] 109 mg/dL High 74-106 [facility] Comment on above: Fasting Glucose resu lt from 100 to 125 mg/dL suggests IMPAIRED HOMEOSTASIS per A.D.A. criteria. Hematocrit Auto (Bld) [Volum e fraction]Ordered By: Namrata Braden on 04-02-2024 Hematocrit (Bld) [Volume fraction] 42.3 % 37-47 [facility] Hemoglobin measurementOrdere d By: Namrata Braden on 04-02-2024 Hemoglobin (Bld) [Mass/Vol] 13.6 g/dL 12.0-15.0 [facility] Immature granulocytes/100 WB C Auto (Bld)Ordered By: Namrata Braden on 04-02-2024 Immature granulocytes/100 WBC (Bld) 0.300 % 0.0-0.9 [facility] Comment on above: IG% - Immature Granu locytes (promyelocytes, myelocytes and metamyelocytes) > 1% indicates that a LEFT SHIFT is Present. Laboratory - Chemistry and C hemistry - challengeOrdered By: Namrata Braden on 04-02-2024 AST [Catalytic activity/Vol] 23 U/L 15-37 [facility] Lymphocytes Auto (Unsp spec) [#/Vol]Ordered By: Namrata Braden on 04-02-2024 Lymphocytes (Bld) [#/Vol] 2.15 10*3/uL 0.83-4.51 [facility] Lymphocytes/100 WBC Auto (Un sp spec)Ordered By: Namrata Braden on 04-02-2024 Lymphocytes/100 WBC (Bld) 34.0 % 19-41 [facility] MCV (mean corpuscular volume ) determinationOrdered By: Namrata Braden on 04-02-2024 MCV (RBC) [Entitic vol] 88.3 fL 81-99 [facility] Mean corpuscular hemoglobin (MCH) determinationOrdered By: Namrata Braden on 04-02-2024 MCH (RBC) [Entitic mass] 28.4 pg 27.0-32.0 [facility] Mean corpuscular hemoglobin concentration (MCHC) determinationOrdered By: Namrata Braden on 04-02-2024 MCHC (RBC) [Mass/Vol] 32.2 g/dL 32-36 [facility] Mean platelet volume determi nationOrdered By: Namrata Braden on 04-02-2024 Platelet mean volume (Bld) [Entitic vol] 10.0 fL 6.2-12.0 [facility] Monocyte percentageOrdered B y: Namrata Braden on 04-02-2024 Monocytes/100 WBC (Bld) 8.5 % 0-10 [facility] Neutrophil percentageOrdered By: Namrata Braden on 04-02-2024 Neutrophils/100 WBC (Bld) 49.6 % 47-70 [facility] Nucleated red blood cell per centageOrdered By: Namrata Braden on 04-02-2024 Nucleated RBC/100 WBC (Bld) [Ratio] 0 % 0-5 [facility] Platelet countOrdered By: Beth Braden on 04-02-2024 Platelets (Bld) [#/Vol] 231 10*3/uL 150-450 [facility] Potassium measurementOrdered By: Namrata Braden on 04-02-2024 Potassium [Moles/Vol] 4.2 mmol/L 3.5-5.1 [facility] RBC Auto (Bld) [#/Vol]Ordere d By: Namrata Braden on 04-02-2024 RBC (Bld) [#/Vol] 4.79 10*6/uL 4.2-5.4 [facility] Serum anion gap measurementO rdered By: Namrata Braden on 04-02-2024 Anion gap [Moles/Vol] 6 mmol/L 5-15 [facility] Serum globulin measurementOr dered By: Namrata Braden on 04-02-2024 Globulin (S) [Mass/Vol] 3.3 g/dL 2.2-4.2 [facility] Serum or plasma alanine peralta otransferase (ALT) measurementOrdered By: Namrata Braden on 04-02-2024 ALT [Catalytic activity/Vol] 41 U/L 13-56 [facility] Serum or plasma albumin paty urement (mass/volume)Ordered By: Namrata Braden on 04-02-2024 Albumin [Mass/Vol] 3.6 g/dL 3.2-5.0 [facility] Serum or plasma alkaline elvia sphatase measurementOrdered By: Namrata Braden on 04-02-2024 ALP [Catalytic activity/Vol] 95 U/L 45-117 [facility] Serum or plasma calcium paty urement (mass/volume)Ordered By: Namrata rBaden on 04-02-2024 Calcium [Mass/Vol] 9.5 mg/dL 8.5-10.1 [facility] Serum or plasma creatinine m easurement (mass/volume)Ordered By: Namrata Braden on 04-02-2024 Creatinine [Mass/Vol] 1.39 mg/dL High 0.55-1.02 [facility] Comment on above: The validity of the calculated GFR & GFRAA in patients over 70 years has not been determined. Clinical correlation is essential. Serum or plasma urea nitroge n measurement (mass/volume)Ordered By: Namrata Braden on 04-02-2024 Urea nitrogen [Mass/Vol] 16 mg/dL 7-18 [facility] Sodium levelOrdered By: Jose Braden on 04-02-2024 Sodium [Moles/Vol] 141 mmol/L 136-145 [facility] Total proteinOrdered By: Tom Braden on 04-02-2024 Protein [Mass/Vol] 6.9 g/dL 6.4-8.2 [facility] White blood cell (WBC) count Ordered By: Namrata Braden on 04-02-2024 WBC (Bld) [#/Vol] 6.3 10*3/uL 4.4-11.0 [facility] Liver Profileon 03-06-2024 Albumin [Mass/Vol] 3.7 g/dL Normal 3.2-5.0 [facility] Comment on above: Performed By: #### L [id number] #### [facility] [address] [place], [place], [id number] ALK P 93 U/L Normal 45-117 [facility] Comment on above: Performed By: #### L [id number] #### [facility] [address] [place], [place], [id number] ALT [Catalytic activity/Vol] 39 U/L Normal 13-56 [facility] Comment on above: Performed By: #### L [id number] #### [facility] [address] [place], [place], [id number] AST [Catalytic activity/Vol] 20 U/L Normal 15-37 [facility] Comment on above: Performed By: #### L [id number] #### [facility] [address] [place], [address] Bilirubin [Mass/Vol] 0.40 mg/dL Normal 0.20-1.00 [facility] Comment on above: Result Comment: For patients on eltrombopag therapy, use of Dimension [place] TBIL is not recommended. Performed By: #### L [id number] #### [facility] [address] [place], [address] Bilirubin.direct [Mass/Vol] 0.10 mg/dL Normal 0.00-0.30 [facility] Comment on above: Performed By: #### L [id number] #### [facility] [address] [place], [address] Globulin (S) [Mass/Vol] 3.2 g/dL Normal 2.2-4.2 [facility] Comment on above: Performed By: #### L [id number] #### [facility] [address] [place], [address] T PROT 6.9 g/dL Normal 6.4-8.2 [facility] Comment on above: Performed By: #### L [id number] #### [facility] [address] [place], [address] Internal Medicine Office Vis anna 02-17-2024 Internal Medicine Office Visit [facility] [address] [place], [place] [address] OFFICE VISIT Date of Service: 02/17/24 MR#: [id number] Acct: [id number] Name: ISI GENAO Rep #: [id number] : 1965 Provider: Dr. 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 Accompanied by: Self Is patient in pain?: No Allergies grass pollen Allergy (Intermediate, Verified 02/17/24 09:54) Other tree and shrub pollen Allergy (Intermediate, Verified 02/17/24 09:54) Other Medications ???Medication ???Instructions ???Recorded ???Confirmed ???Type ascorbic acid (vitamin C) 1,000 mg 1 g PO DAILY Check with primary 04/01/17 02/17/24 History tablet doctor cholecalciferol (vitamin D3) 50 2,000 unit PO ONCE Check with 04/01/17 02/17/24 History mcg (2,000 unit) capsule primary doctor aspirin 81 mg chewable tablet 162 mg (2 x 81 mg) PO DAILY #60 03/24/21 02/17/24 Rx tabs albuterol sulfate 90 mcg/actuation 2 puff inhalation Q6H PRN 04/19/22 02/17/24 Rx aerosol inhaler shortness of breath or wheezing #8.5 grams levocetirizine 5 mg tablet (Xyzal) 5 mg PO DAILY 11/03/22 02/17/24 History montelukast 10 mg tablet 10 mg PO DAILY 11/03/22 02/17/24 History multivitamin 1 tab PO DAILY 11/03/22 02/17/24 History mv-min-vit C-ascorb tab PO 11/03/22 02/17/24 History Rn-Nkz-Bvj-herb #124 333 mg-1.7 mg chewable tablet (Airborne (ascorbate sodium)) fluticasone propionate 50 2 spray intranasal DAILY Check 04/08/23 02/17/24 Rx mcg/actuation nasal with primary doctor #48 grams spray,suspension fluoxetine 20 mg capsule 20 mg PO DAILY #90 caps 11/15/23 02/17/24 Rx rosuvastatin 40 mg tablet 40 mg PO QHS #90 tabs 01/06/24 02/17/24 Rx hydroxychloroquine 200 mg tablet 200 mg PO BID 02/17/24 02/17/24 History hydroxyzine HCl 25 mg tablet 25 mg PO QHS PRN Anxiety/Sleep #90 02/17/24 02/17/24 Rx tabs lisinopril 20 mg tablet 20 mg PO DAILY #90 tabs 02/17/24 02/17/24 Rx PFSH Medical History (Updated 02/17/24 @ 12:[address] Nadine Salamanca MD) Obstructive sleep apnea Elevated antinuclear antibody (FRANK) level Hypersomnia Skin lesion of scalp Acute sinusitis, unspecified Borderline type 2 diabetes mellitus Blood glucose elevated Anxiety and depression Allergies Chronic sinusitis Sinusitis Bronchitis Cough Chest congestion Post-viral cough syndrome Health care maintenance Complement abnormality Occipital stroke Back pain History of bloody stools Kidney disease HTN (hypertension) Mitral valve prolapse Sciatica Hyperlipemia Seasonal allergies Surgical History History of delivery History of D C Normal colonoscopy Family History Father Heart disease aortic aneurysm at 38 Hyperlipemia Hypertension Kidney disease Grandmother Breast cancer Grandmother Cancer uterine Sister Brain aneurysm passed at 27 Grandfather CVA (cerebral vascular accident) Social History Smoking Status: Never smoker Electronic Cigarette Use: not used second hand exposure: No alcohol intake: current alcohol intake frequency: a few times a week Alcohol type: wine substance use type: does not use what type of physical activity do you participate in: walking frequency: daily HPI HPI Chief Complaint: 3m f/u Details: ISI GENAO, is a 58 F who presents to the office today for follow-up of her chronic medical conditions. No acute concerns at this time. Since her last visit, has been using her CPAP consistently. Sleeping better. Waking up feeling well rested. No concerns. Has also been taking hydroxyzine at night as needed which she has found helpful for insomnia. Feels a lot better overall. History of hypertension, blood pressure today at 128/76 mmHg. No chest pain, palpitation or shortness of breath. Established with rheumatology. Currently on Plaquenil and doing really well. She states that hip pain has improved overall. Other chronic medical conditions are stable. ROS Const Constitutional: No body ache, chills, excessive sweating, fatigue, fever(s), frequent falls, headache(s), snoring, weakness or change in appetite Eyes Eyes: No blurry vision, change in vision, floaters, eye pain or Light sens (more content not included)... Normal [facility] Liver Profileon 02-06-2024 Albumin [Mass/Vol] 3.7 g/dL Normal 3.2-5.0 [facility] Comment on above: Performed By: #### L [id number] #### [facility] [address] [place], [address] ALK P 89 U/L Normal 45-117 [facility] Comment on above: Performed By: #### L [id number] #### [facility] [address] [place], [address] ALT [Catalytic activity/Vol] 35 U/L Normal 13-56 [facility] Comment on above: Performed By: #### L [id number] #### [facility] [address] [place], [address] AST [Catalytic activity/Vol] 13 U/L Low 15-37 [facility] Comment on above: Performed By: #### L [id number] #### [facility] [address] [place], [address] Bilirubin [Mass/Vol] 0.30 mg/dL Normal 0.20-1.00 [facility] Comment on above: Result Comment: For patients on eltrombopag therapy, use of Dimension [place] TBIL is not recommended. Performed By: #### L [id number] #### [facility] [address] [place], [address] Bilirubin.direct [Mass/Vol] 0.09 mg/dL Normal 0.00-0.30 [facility] Comment on above: Performed By: #### L [id number] #### [facility] [address] [place], [place], [address] Globulin (S) [Mass/Vol] 3.2 g/dL Normal 2.2-4.2 [facility] Comment on above: Performed By: #### L [id number] #### [facility] [address] [place], [place], [id number] T PROT 6.9 g/dL Normal 6.4-8.2 [facility] Comment on above: Performed By: #### L [id number] #### [facility] [address] [place], [place], [id number] No Panel InformationOrdered By: Aaron Matthews on 06-13-2023 Urine Microalbumin/Creatinine Ratio 23.4 mg/g CRE <30 [facility] Thin prep Papanicolaou smear with manual screeningOrdered By: Aaron Matthews on 06-13-2023 Protein (U) [Mass/Vol] 10.9 mg/dL 0.0-11.8 [facility] Thin prep Papanicolaou smear with manual screening 27.2 mg/L NO RANGE EST. [facility] Urine creatinine measurement (mass/volume)Ordered By: Aaron Matthews on 06-13-2023 Creatinine (U) [Mass/Vol] 116.00 mg/dL NO RANGE EST. [facility] Urine protein/creatinine mas s ratioOrdered By: Aaron Matthews on 06-13-2023 Protein/Creatinine (U) [Mass ratio] 94 mg/g CRE 0-200 [facility] Basophil percentageOrdered B y: Aaron Matthews on 06-10-2023 Basophil percentage 3.2 mg/dL 2.5-4.9 [facility] Chloride [Moles/Vol] 110 mmol/L 98-107 [facility] Glucose [Mass/Vol] 75 mg/dL 74-106 [facility] Hemoglobin (Bld) [Mass/Vol] 13.6 g/dL 12.0-15.0 [facility] Potassium [Moles/Vol] 4.1 mmol/L 3.5-5.1 [facility] Sodium [Moles/Vol] 141 mmol/L 136-145 [facility] WBC (Bld) [#/Vol] 10.2 10*3/uL 4.4-11.0 [facility] Determination of erythrocyte mean corpuscular volume (MCV)Ordered By: Aaron Matthews on 06-10-2023 MCV (RBC) [Entitic vol] 88.5 fL 81-99 [facility] Erythrocyte distribution wid th ratioOrdered By: Aaron Matthews on 06-10-2023 Erythrocyte distribution width (RBC) [Ratio] 13.2 % 11.6-14.6 [facility] Erythrocyte distribution wid th standard deviationOrdered By: Aaron Cassie on 06-10-2023 Erythrocyte distribution width (RBC) [Entitic vol] 42.9 fL 35.1-43.9 [facility] Hematocrit Auto (Bld) [Volum e fraction]Ordered By: Aaron Matthews on 06-10-2023 Hematocrit (Bld) [Volume fraction] 43.1 % 37-47 [facility] - Chemistry and C hemistry - challengeOrdered By: Aaron Matthews on 06-10-2023 CO2 [Moles/Vol] 26.0 mmol/L 21.0-32.0 [facility] Urea nitrogen/Creatinine [Mass ratio] 21.7 mg/mg 10-20 [facility] - Hematology and Cell countsOrdered By: Aaron Matthews on 06-10-2023 MCH (RBC) [Entitic mass] 27.9 pg 27.0-32.0 [facility] MCHC (RBC) [Mass/Vol] 31.6 g/dL 32-36 [facility] Platelet mean volume (Bld) [Entitic vol] 9.8 fL 6.2-12.0 [facility] Platelets (Bld) [#/Vol] 271 10*3/uL 150-450 [facility] No Panel InformationOrdered By: Aaron Matthews on 06-10-2023 Estimated GFR (MDRD) Amer 63 mL/min >60 [facility] Comment on above: GFR Calc Estimated GFR (MDRD) Non-Af Amer 52 mL/min >60 [facility] Comment on above: Non- GFR Calc Parathyroid Hormone (Intact) 79.3 pg/mL 18.4-80.1 [facility] Vitamin D 25-Hydroxy 35.4 ng/mL [facility] Comment on above: Vitamin D 25(OH) Sta tus Range Deficiency <20 ng/mL (50nmol/L) Insufficiency 20 - 30 ng/mL (50 - 75 nmol/L) Sufficiency 30 - 100 ng/mL (75 - 250 nmol/L) Toxicity >100 ng/mL (>250 nmol/L) RBC Auto (Bld) [#/Vol]Ordere d By: Aaron Matthews on 06-10-2023 RBC (Bld) [#/Vol] 4.87 10*6/uL 4.2-5.4 [facility] Serum or plasma calcium paty urement (mass/volume)Ordered By: Aaron Matthews on 06-10-2023 Calcium [Mass/Vol] 8.9 mg/dL 8.5-10.1 [facility] Serum or plasma creatinine m easurement (mass/volume)Ordered By: Aaron Matthews on 06-10-2023 Creatinine [Mass/Vol] 1.15 mg/dL 0.55-1.02 [facility] Comment on above: The validity of the calculated GFR & GFRAA in patients over 70 years has not been determined. Clinical correlation is essential. Serum or plasma urea nitroge n measurement (mass/volume)Ordered By: Aaron Matthews on 06-10-2023 Urea nitrogen [Mass/Vol] 25 mg/dL 7-18 [facility] Thin prep Papanicolaou smear with manual screeningOrdered By: Aaron Matthews on 06-10-2023 Thin prep Papanicolaou smear with manual screening 3.6 g/dL 3.2-5.0 [facility] DBT Breast - bilateral scree ningon 06-01-2023 [facility] - Hematology and Cell countson 04-07-2023 HbA1c (Bld) [Mass fraction] 5.7 % 4.2-6.3 [facility] Absolute lymphocyte countOrd ered By: Dr. Salamanca on 09-20-2022 Lymphocytes Auto (Unsp spec) [#/Vol] 2.60 10*3/uL 0.83-4.51 [facility] Basophil percentageOrdered B y: Dr. Salamanca on 09-20-2022 Basophil percentage 3.8 mg/dL 2.5-4.9 [facility] Basophils/100 WBC (Bld) 0.9 % 0-1 [facility] Bilirubin [Mass/Vol] 0.40 mg/dL 0.20-1.00 [facility] Comment on above: For patients on eltr ombopag therapy, use of Dimension [place] TBIL is not recommended. Chloride [Moles/Vol] 105 mmol/L 98-107 [facility] Cholesterol [Mass/Vol] 151 mg/dL <200 [facility] Comment on above: <200 mg/dL Desirable 200-240 mg/dL Borderline >240 mg/dL High Risk Eosinophils/100 WBC (Bld) 5.7 % 0-5 [facility] Glucose [Mass/Vol] 126 mg/dL 74-106 [facility] Comment on above: Fasting Glucose resu lt greater than or equal to 126 mg/dL suggests DIABETES MELLITUS per A.D.A. criteria. Neutrophils (Bld) [#/Vol] 5.1 10*3/uL 2.0-7.7 [facility] Neutrophils/100 WBC (Bld) 57.0 % 47-70 [facility] Potassium [Moles/Vol] 4.1 mmol/L 3.5-5.1 [facility] Protein [Mass/Vol] 7.1 g/dL 6.4-8.2 [facility] Sodium [Moles/Vol] 138 mmol/L 136-145 [facility] Triglyceride [Mass/Vol] 127 mg/dL <199 [facility] Comment on above: The drugs N-Acetylcy steine and Metamizole may falsely depress this assay.Serum Triglycerides Reference Interval Normal <150 mg/dL Borderline high 150 - 199 mg/dL High 200 - 499 mg/dL Very High > or = 500 mg/dL WBC (Bld) [#/Vol] 9.0 10*3/uL 4.4-11.0 [facility] Blood erythrocytes count (nu mber/volume)Ordered By: Dr. Salamanca on 09-20-2022 RBC (Bld) [#/Vol] 5.15 10*6/uL 4.2-5.4 [facility] Blood hemoglobin measurement (mass/volume)Ordered By: Dr. Salamanca on 09-20-2022 Hemoglobin (Bld) [Mass/Vol] 14.4 g/dL 12.0-15.0 [facility] Blood lymphocytes/100 leukoc ytesOrdered By: Dr. Salamanca on 09-20-2022 Lymphocytes/100 WBC (Bld) 29.0 % 19-41 [facility] Blood monocytes/100 leukocyt esOrdered By: Dr. Salamanca on 09-20-2022 Monocytes/100 WBC (Bld) 7.0 % 0-10 [facility] Blood platelet mean volumeOr dered By: Dr. Salamanca on 09-20-2022 Platelet mean volume (Bld) [Entitic vol] 9.6 fL 6.2-12.0 [facility] Determination of erythrocyte mean corpuscular volume (MCV)Ordered By: Dr. Salamanca on 09-20-2022 MCV (RBC) [Entitic vol] 88.9 fL 81-99 [facility] Hematocrit Auto (Bld) [Volum e fraction]Ordered By: Dr. Salamanca on 09-20-2022 Hematocrit (Bld) [Volume fraction] 45.8 % 37-47 [facility] - Chemistry and C hemistry - challengeOrdered By: Dr. Salamanca on 09-20-2022 ALP [Catalytic activity/Vol] 126 U/L 45-117 [facility] ALT [Catalytic activity/Vol] 39 U/L 13-56 [facility] CO2 [Moles/Vol] 25.0 mmol/L 21.0-32.0 [facility] Globulin (S) [Mass/Vol] 3.6 g/dL 2.2-4.2 [facility] Urea nitrogen/Creatinine [Mass ratio] 16.7 mg/mg 10-20 [facility] - Hematology and Cell countsOrdered By: Dr. Salamanca on 09-20-2022 Erythrocyte distribution width (RBC) [Entitic vol] 44.8 fL 35.1-43.9 [facility] Erythrocyte distribution width (RBC) [Ratio] 13.8 % 11.6-14.6 [facility] Immature granulocytes/100 WBC (Bld) 0.400 % 0.0-0.9 [facility] Comment on above: IG% - Immature Granu locytes (promyelocytes, myelocytes and metamyelocytes) > 1% indicates that a LEFT SHIFT is Present. MCH (RBC) [Entitic mass] 28.0 pg 27.0-32.0 [facility] Nucleated RBC/100 WBC (Bld) [Ratio] 0 % 0-5 [facility] MCHC Auto (RBC) [Mass/Vol]Or dered By: Dr. Salamanca on 09-20-2022 MCHC (RBC) [Mass/Vol] 31.4 g/dL 32-36 [facility] No Panel InformationOrdered By: Dr. Salamanca on 09-20-2022 Urine Microalbumin/Creatinine Ratio 32.9 mg/g CRE <30 [facility] Estimated GFR (MDRD) Amer 67 mL/min >60 [facility] Comment on above: GFR Calc Estimated GFR (MDRD) Non-Af Amer 56 mL/min >60 [facility] Comment on above: Non- GFR Calc Platelets bldOrdered By: Dr. Salamanca on 09-20-2022 Platelets (Bld) [#/Vol] 274 10*3/uL 150-450 [facility] Serum or plasma albumin paty urement (mass/volume)Ordered By: Dr. Salamanca on 09-20-2022 Albumin [Mass/Vol] 3.5 g/dL 3.2-5.0 [facility] Serum or plasma albumin/glob ulin mass ratioOrdered By: Dr. Salamanca on 09-20-2022 Albumin/Globulin [Mass ratio] 1.0 {ratio} 0.9-2.4 [facility] Serum or plasma calcium paty urement (mass/volume)Ordered By: Dr. Salamanca on 09-20-2022 Calcium [Mass/Vol] 9.3 mg/dL 8.5-10.1 [facility] Serum or plasma cholesterol in HDL measurement (mass/volume)Ordered By: Dr. Salamanca on 09-20-2022 Cholesterol in HDL [Mass/Vol] 38 mg/dL >40 [facility] Comment on above: The drugs N-Acetylcy steine and Metamizole may falsely depress this assay. Reference Range HDL <40 mg/dL Low HDL Cholesterol HDL >or= 60 mg/dL High HDL Cholesterol Serum or plasma cholesterol in VLDL measurement (mass/volume)Ordered By: Dr. Salamanca on 09-20-2022 Cholesterol in VLDL [Mass/Vol] 25 mg/dL 5-40 [facility] Serum or plasma creatinine m easurement (mass/volume)Ordered By: Dr. Salamanca on 09-20-2022 Creatinine [Mass/Vol] 1.08 mg/dL 0.55-1.02 [facility] Comment on above: The validity of the calculated GFR & GFRAA in patients over 70 years has not been determined. Clinical correlation is essential. Serum or plasma low density lipoprotein (LDL) cholesterol measurement (mass/volume)Ordered By: Dr. Salamanca on 09-20-2022 Cholesterol in LDL [Mass/Vol] 88 mg/dL 0-130 [facility] Serum or plasma urea nitroge n measurement (mass/volume)Ordered By: Dr. Salamanca on 09-20-2022 Urea nitrogen [Mass/Vol] 18 mg/dL 7-18 [facility] Thin prep Papanicolaou smear with manual screeningOrdered By: Dr. Salamanca on 09-20-2022 Thin prep Papanicolaou smear with manual screening 15.9 mg/L NO RANGE EST. [facility] Thin prep Papanicolaou smear with manual screening 23 U/L 15-37 [facility] Thin prep Papanicolaou smear with manual screening 8 5-15 [facility] Urine creatinine measurement (mass/volume)Ordered By: Dr. Salamanca on 09-20-2022 Creatinine (U) [Mass/Vol] 48.40 mg/dL NO RANGE EST. [facility] Urine protein measurement (m ass/volume)Ordered By: Dr. Salamanca on 09-20-2022 Protein (U) [Mass/Vol] mg/dL 0.0-11.8 [facility] Urine protein/creatinine mas s ratioOrdered By: Dr. Salamanca on 09-20-2022 Protein/Creatinine (U) [Mass ratio] 112 mg/g CRE 0-200 [facility] Whole blood hemoglobin A1c/t otal hemoglobin ratio (mass fraction)Ordered By: Dr. Salamanca on 09-20-2022 HbA1c (Bld) [Mass fraction] 5.7 % 3.8-5.6 [facility] Comment on above: Normal < 5.7 % Predi abetic 5.7 - 6.4 % Diabetic >or= 6.5 % Please note range changes. ARMANDO SCREENINGon 05-24-2022 [facility] Absolute lymphocyte counton 04-02-2022 Lymphocytes Auto (Unsp spec) [#/Vol] 2.93 10*3/uL 0.83-4.51 [facility] Work Phone: Basophil percentageon 2021 Basophils/100 WBC (Bld) 0.7 % 0-1 [facility] Work Phone: Eosinophils/100 WBC (Bld) 4.7 % 0-5 [facility] Work Phone: Neutrophils (Bld) [#/Vol] 5.9 10*3/uL 2.0-7.7 [facility] Work Phone: Neutrophils/100 WBC (Bld) 56.8 % 47-70 [facility] Work Phone: WBC (Bld) [#/Vol] 10.3 10*3/uL 4.4-11.0 [facility] Work Phone: Blood erythrocytes count (nu mber/volume)on 04-02-2022 RBC (Bld) [#/Vol] 4.74 10*6/uL 4.2-5.4 [facility] Work Phone: Blood hemoglobin measurement (mass/volume)on 04-02-2022 Hemoglobin (Bld) [Mass/Vol] 13.2 g/dL 12.0-15.0 [facility] Work Phone: Blood lymphocytes/100 leukoc yteson 04-02-2022 Lymphocytes/100 WBC (Bld) 28.4 % 19-41 [facility] Work Phone: Blood monocytes/100 leukocyt eson 04-02-2022 Monocytes/100 WBC (Bld) 8.9 % 0-10 [facility] Work Phone: Blood platelet mean volumeon 04-02-2022 Platelet mean volume (Bld) [Entitic vol] 9.7 fL 6.2-12.0 [facility] Work Phone: Determination of erythrocyte mean corpuscular volume (MCV)on 04-02-2022 MCV (RBC) [Entitic vol] 89.5 fL 81-99 [facility] Work Phone: Hematocrit Auto (Bld) [Volum e fraction]on 04-02-2022 Hematocrit (Bld) [Volume fraction] 42.4 % 37-47 [facility] Work Phone: Laboratory - Hematology and Cell countson 04-02-2022 Erythrocyte distribution width (RBC) [Entitic vol] 42.4 fL 35.1-43.9 [facility] Work Phone: Erythrocyte distribution width (RBC) [Ratio] 13.1 % 11.6-14.6 [facility] Work Phone: Immature granulocytes/100 WBC (Bld) 0.500 % 0.0-0.9 [facility] Work Phone: Comment on above: IG% - Immature Granu locytes (promyelocytes, myelocytes and metamyelocytes) > 1% indicates that a LEFT SHIFT is Present. MCH (RBC) [Entitic mass] 27.8 pg 27.0-32.0 [facility] Work Phone: Nucleated RBC/100 WBC (Bld) [Ratio] 0 % 0-5 [facility] Work Phone: Laboratory - Microbiology an d Antimicrobial susceptibilityon 04-02-2022 SARS-CoV-2 (COVID-19) RNA SIMONA+probe Ql (Unsp spec) Not detected Not Detect [facility] Work Phone: Comment on above: Normal Reference Ran ge: Not DetectedMethod:(RT-PCR) real-time reverse transcriptase PCRLuminex BILLY Instrument*The Food and Drug Administration (FDA) has issued an Emergency Use Authorization (EAU) for the BILLY SARS-CoV-2 Assay for the rapid detection of the virus that causes COVID-19. This test has been validated, but the [facility] independent review of this validation is pending.*Negative results do not preclude infection and should not be used as the sole basis for treatment or patient management. Optimum specimen types and timing for peak viral levels during infections caused by SARS-CoV-2 have not been determined. Collection of multiple specimens from the same patient may be necessary to detect the virus. The possibility of a false negative result should be considered if the patient has clinical presentation or has had recent exposure. MCHC Auto (RBC) [Mass/Vol]on 04-02-2022 MCHC (RBC) [Mass/Vol] 31.1 g/dL 32-36 [facility] Work Phone: Platelets bldon 04-02-2022 Platelets (Bld) [#/Vol] 244 10*3/uL 150-450 [facility] Work Phone: Absolute lymphocyte counton 03-24-2022 Lymphocytes Auto (Unsp spec) [#/Vol] 2.64 10*3/uL 0.83-4.51 [facility] Work Phone: Basophil percentageon 2021 Basophils/100 WBC (Bld) 0.7 % 0-1 [facility] Work Phone: Bilirubin [Mass/Vol] 0.40 mg/dL 0.20-1.00 [facility] Work Phone: Comment on above: For patients on eltr ombopag therapy, use of Dimension [place] TBIL is not recommended. Chloride [Moles/Vol] 107 mmol/L 98-107 [facility] Work Phone: Eosinophils/100 WBC (Bld) 3.7 % 0-5 [facility] Work Phone: Glucose [Mass/Vol] 83 mg/dL 74-106 [facility] Work Phone: Neutrophils (Bld) [#/Vol] 4.8 10*3/uL 2.0-7.7 [facility] Work Phone: Neutrophils/100 WBC (Bld) 55.5 % 47-70 [facility] Work Phone: Potassium [Moles/Vol] 4.4 mmol/L 3.5-5.1 [facility] Work Phone: Protein [Mass/Vol] 7.1 g/dL 6.4-8.2 [facility] Work Phone: Sodium [Moles/Vol] 138 mmol/L 136-145 [facility] Work Phone: WBC (Bld) [#/Vol] 8.6 10*3/uL 4.4-11.0 [facility] Work Phone: Blood erythrocytes count (nu mber/volume)on 03-24-2022 RBC (Bld) [#/Vol] 4.83 10*6/uL 4.2-5.4 [facility] Work [facility]: Blood hemoglobin measurement (mass/volume)on 03-24-2022 Hemoglobin (Bld) [Mass/Vol] 13.6 g/dL 12.0-15.0 [facility] Work Phone: Blood lymphocytes/100 leukoc yteson 03-24-2022 Lymphocytes/100 WBC (Bld) 30.7 % 19-41 [facility] Work Phone: Blood monocytes/100 leukocyt eson 03-24-2022 Monocytes/100 WBC (Bld) 9.2 % 0-10 [facility] Work Phone: Blood platelet mean volumeon 03-24-2022 Platelet mean volume (Bld) [Entitic vol] 9.6 fL 6.2-12.0 [facility] Work Phone: Determination of erythrocyte mean corpuscular volume (MCV)on 03-24-2022 MCV (RBC) [Entitic vol] 89.2 fL 81-99 [facility] Work Phone: Hematocrit Auto (Bld) [Volum e fraction]on 03-24-2022 Hematocrit (Bld) [Volume fraction] 43.1 % 37-47 [facility] Work Phone: Laboratory - Chemistry and C hemistry - challengeon 03-24-2022 ALP [Catalytic activity/Vol] 99 U/L 45-117 [facility] Work Phone: ALT [Catalytic activity/Vol] 33 U/L 13-56 [facility] Work Phone: CO2 [Moles/Vol] 25.0 mmol/L 21.0-32.0 [facility] Work Phone: Globulin (S) [Mass/Vol] 3.6 g/dL 2.2-4.2 [facility] Work Phone: Urea nitrogen/Creatinine [Mass ratio] 23.3 mg/mg 10-20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 03-25-2022 08:06-0500 SaO2% (BldA) [Mass fraction] 96 % Dr. Nadine Salamanca Work Phone: [facility] Work Phone: 03-25-2022 08:06-0500 Systolic blood pressure 130 mm[Hg] Dr. Nadine Salamanca Work Phone: [facility] Work Phone: 03-24-2022 09:00-0500 Body temperature 97 [degF] Dr. Nadine Salamanca Work Phone: [facility] Work Phone: 03-24-2022 09:00-0500 Body weight 98.[address] Nadine Salamanca Work Phone: [facility] Work Phone: 03-24-2022 09:00-0500 Diastolic blood pressure 88 mm[Hg] Dr. Nadine Salamanca Work Phone: [facility] Work Phone: 03-24-2022 09:00-0500 Heart rate 83 /min Dr. Nadine Salamanca Work Phone: [facility] Work Phone: 03-24-2022 09:00-0500 Respiratory rate 16 /min Dr. Nadine Salamanca Work Phone: [facility] Work Phone: 03-24-2022 09:00-0500 SaO2% (BldA) [Mass fraction] 98 % Dr. Nadine Salamanca Work Phone: [facility] Work Phone: 03-24-2022 09:00-0500 Systolic blood pressure 134 mm[Hg] Dr. Nadine Salamanca Work Phone: [facility] Work Phone: 10-23-2021 09:43-0400 Body height 167.[address] Nadine Salamanca Work Phone: [facility] Work Phone: 10-23-2021 09:43-0400 Body mass index (BMI) [Ratio] 34.7 kg/m2 Dr. Nadine Salamanca Work Phone: [facility] Work Phone: 10-23-2021 09:43-0400 Body temperature 97.2 [degF] Dr. Nadine Salmaanca Work Phone: [facility] Work Phone: 10-23-2021 09:43-0400 Body weight 97.[address] Nadine Salamanca Work Phone: [facility] Work Phone: 10-23-2021 09:43-0400 Diastolic blood pressure 80 mm[Hg] Dr. Nadine Salamanca Work Phone: [facility] Work Phone: 10-23-2021 09:43-0400 Heart rate 72 /min Dr. Nadine Salamanca Work Phone: [facility] Work Phone: 10-23-2021 09:43-0400 Respiratory rate 18 /min Dr. Nadine Salamanca Work Phone: [facility] Work Phone: 10-23-2021 09:43-0400 SaO2% (BldA) [Mass fraction] 96 % Dr. Nadine Salamanca Work Phone: [facility] Work Phone: 10-23-2021 09:43-0400 Systolic blood pressure 132 mm[Hg] Dr. Nadine Salamanca Work Phone: [facility] Work Phone: 09-21-2021 09:03-0400 Diastolic blood pressure 86 mm[Hg] Dr. Nadine Salamanca Work Phone: [facility] Work Phone: 09-21-2021 09:03-0400 Systolic blood pressure 146 mm[Hg] Dr. Nadine Salamanca Work Phone: [facility] Work Phone: 09-21-2021 08:15-0400 Body height 167.[address] Nadine Salamanca Work Phone: [facility] Work Phone: 09-21-2021 08:15-0400 Body mass index (BMI) [Ratio] 34.3 kg/m2 Dr. Nadine Salamanca Work Phone: [facility] Work Phone: 09-21-2021 08:15-0400 Body weight 96.[address] Nadine Salamanca Work Phone: [facility] Work Phone: 09-21-2021 08:15-0400 Heart rate 75 /min Dr. Nadine Salamanca Work Phone: [facility] Work Phone: 09-21-2021 08:15-0400 Respiratory rate 16 /min Dr. Nadine Salamanca Work Phone: [facility] Work Phone: 09-21-2021 08:15-0400 SaO2% (BldA) [Mass fraction] 98 % Dr. Nadine Salamanca Work Phone: [facility] Work Phone: 07-29-2021 17:12-0400 Body mass index (BMI) [Ratio] 34.5 kg/m2 Dr. Nadine Salamanca Work Phone: [facility] Work Phone: 07-29-2021 17:12-0400 Body temperature 97 [degF] Dr. Nadine Salamanca Work Phone: [facility] Work Phone: 07-29-2021 17:12-0400 Body weight 97.[address] Nadine Salamanca Work Phone: [facility] Work Phone: 07-29-2021 17:12-0400 Diastolic blood pressure 100 mm[Hg] Dr. Nadine Salamanca Work Phone: [facility] Work Phone: 07-29-2021 17:12-0400 Heart rate 81 /min Dr. Nadine Salamanca Work Phone: [facility] Work Phone: 07-29-2021 17:12-0400 Respiratory rate 16 /min Dr. Nadine Salamanca Work Phone: [facility] Work Phone: 07-29-2021 17:12-0400 SaO2% (BldA) [Mass fraction] 99 % Dr. Nadine Salamanca Work Phone: [facility] Work Phone: 07-29-2021 17:12-0400 Systolic blood pressure 140 mm[Hg] Dr. Nadine Salamanca Work Phone: [facility] Work Phone: 07-29-2021 17:12-0400 Body height 167.[address] Nadine Salamanca Work Phone: [facility] Work Phone: 07-29-2021 17:12-0400 Body mass index (BMI) [Ratio] 34.5 kg/m2 Dr. Nadine Salamanca Work Phone: [facility] Work Phone: 07-29-2021 17:12-0400 Body temperature 97 [degF] Dr. Nadine Salamanca Work Phone: [facility] Work Phone: 07-29-2021 17:12-0400 Body weight 97.[address] Nadine Salamanca Work Phone: [facility] Work Phone: 07-29-2021 17:12-0400 Diastolic blood pressure 100 mm[Hg] Dr. Nadine Salamanca Work Phone: [facility] Work Phone: 07-29-2021 17:12-0400 Heart rate 81 /min Dr. Nadine Salamanca Work Phone: [facility] Work Phone: 07-29-2021 17:12-0400 Respiratory rate 16 /min Dr. Nadine Salamanca Work Phone: [facility] Work Phone: 07-29-2021 17:12-0400 SaO2% (BldA) [Mass fraction] 99 % Dr. Nadine Salamanca Work Phone: [facility] Work Phone: 07-29-2021 17:12-0400 Systolic blood pressure 140 mm[Hg] Dr. Nadine Salamanca Work Phone: [facility] Work Phone: Encounters Encounter Date Encounter Type Care Provider Facility Start: 02-02-2025 ambulatory [facility] Facility :[facility] Start: 01-29-2025 End: 01-29-2025 ambulatory [facility] Facility:[facility] Start: 12-04-2024 End: 12-04-[address] Nadine Salamanca MD Work Phone: -Laboratory [facility] Start: 12-04-2024 End: 12-04-[address] Aaron Matthews MD -Laboratory [facility] Start: 12-04-2024 End: 12-04-2024 ambulatory [facility] Facility:[facility] Start: 11-12-2024 End: 11-12-[address] Aaron Matthews MD -Laboratory Work Phone: Start: 11-12-[address] Aaron mendoza MD -Laboratory Work Phone: Start: 11-12-2024 End: 11-12-[address] Nadine Salamanca MD Work Phone: -Laboratory Start: 11-05-2024 End: 11-05-[address] Nadine Salamanca MD Work Phone: -[facility] Start: 11-05-2024 End: 11-05-[address] Namrata Braden MD -Laboratory [facility] Start: 11-05-2024 End: 11-05-2024 ambulatory Namrata Braden Facility:[facility] Start: 10-15-2024 End: 11-01-[address] Aaron Matthews MD -Labor[facility] Start: 10-15-2024 End: 11-01-[address] Nadine Salamanca MD Work Phone: -[facility] Start: 10-08-2024 End: 10-08-2024 Patient encounter procedure Ludivina Yang [place] [facility] Work Phone: Start: 10-08-2024 End: 10-08-[address] Nadine Salamanca MD Work Phone: [facility] Start: 10-08-2024 End: 10-08-2024 ambulatory Nadine Salamanca Facility:[facility] Start: 09-17-2024 End: 10-01-[address] Aaron Matthews MD -Laboratory [facility] Start: 09-17-2024 End: 10-01-[address] Nadine Salamanca MD Work Phone: -[facility] Start: 08-17-2024 End: 09-01-[address] Aaron Matthews MD -Laboratory [facility] Start: 08-17-2024 End: 09-01-[address] Nadine Salamanca MD Work Phone: [facility] Work Phone: Start: 08-06-2024 End: 10-06-2024 Follow-up encounter Rosemary Metzger MD Work Phone: [facility] Start: 08-03-2024 End: 08-03-[address] Nadine Salamanca MD Work Phone: [facility] Work Phone: Start: 08-03-2024 End: 08-03-[address] Namrata Braden MD -Radiology, [place] Work Phone: Start: 08-02-2024 End: 08-03-[address] Nadine Salamanca MD Work Phone: [facility] Work Phone: Start: 08-02-2024 End: 08-02-[address] Namrata Braden MD -Laboratory, [place] Start: 08-02-2024 End: 08-02-2024 ambulatory [facility] Facility:[facility] Start: 08-01-2024 End: 10-01-2024 Follow-up encounter Farzaneh Neves APRN.CNP Work Phone: OB/Gynecology Start: 07-31-2024 End: 07-31-2024 Patient encounter procedure Mohini Sanchez APRN.CNP Work Phone: OB/Gynecology Comment on above: Encounter for gyneco logical examination (general) (routine) without abnormal findings (Primary Dx); Encounter for screening for human papillomavirus (HPV); Pap smear for cervical cancer screening; Encounter for screening mammogram for breast cancer; Vaginal atrophy Start: 07-31-2024 End: 07-31-2024 Patient encounter status Mohini Sanchez APRN.CNP Work Phone: [facility] Start: 07-31-2024 Encounter for gynecological examination (general) (routine) without abnormal findings MOHINI SANCHEZ [facility] Start: 07-31-2024 End: 07-31-2024 ambulatory MOHINI MELTONCALF Facility:[facility] Start: 07-31-2024 End: 07-31-2024 Subsequent hospital visit by physician Screen Mammo [facility] Mammogram Comment on above: Breast cancer screen ing by mammogram [Z12.31] Start: 07-23-2024 End: 08-01-[address] Aaron Matthews MD -Laboratory, [facility] Start: 07-23-2024 End: 08-01-2024 ambulatory [facility] Facility:[facility] Start: 06-25-2024 End: 06-25-[address] Nadine Salamanca MD Work Phone: [facility] Work Phone: Start: 06-25-2024 End: 06-25-[address] Aaron Matthews MD -Ultrasound, [facility] Work Phone: Start: 06-25-2024 End: 07-02-[address] Aaron Matthews MD -Laboratory, [facility] Start: 06-25-[address] Aaron mendoza MD -Laboratory, [facility] Start: 06-25-2024 End: 07-02-[address] Nadine Salamanca MD Work Phone: [facility] Work Phone: Start: 06-25-2024 End: 06-25-2024 ambulatory Aaron Matthews Facility:[facility] Start: 06-11-2024 End: 06-11-[address] Nadine Salamanca MD -[place] [facility] Work Phone: Start: 06-11-2024 End: 06-11-2024 ambulatory [facility] [place] [place]: 05-29-2024 End: 06-01-2024 ambulatory [facility] Facility:[facility] Start: 05-29-2024 End: 06-01-[address] Aaron Matthews MD -Laboratory, [facility] Start: 04-30-2024 End: 05-04-[address] Aaron Matthews MD -Laboratory, [facility] Start: 04-30-2024 End: 05-04-2024 [facility] Start: 04-02-2024 End: 04-03-2024 ambulatory [facility] Facility:[facility] Start: 04-02-2024 End: 04-03-[address] Aaron Matthews MD -Laboratory, [facility] Start: 02-17-2024 End: 02-17-20[facility] Start: 02-06-2024 End: 03-03-2024 ambulatory Aaron Matthews Facility:[facility] Start: 06-30-2023 End: 06-30-[address] Nadine Salamanca Work Phone: [facility] Work Phone: Start: 06-30-2023 End: 06-30-[address] Nadine Salamanca Work Phone: [facility]-Ultrasound, [facility] Work Phone: Start: 06-13-2023 End: 06-13-[address] Nadine Salamanca Work Phone: [facility] Work Phone: Start: 06-13-2023 End: 06-13-[address] [facility] Start: 06-10-2023 End: 06-10-[address] Naidne Salamanca Work Phone: [facility] Work Phone: Start: 06-10-2023 End: 06-10-[address] Nadine Salamanca Work Phone: [facility]-Laboratory, [facility] Start: 06-01-2023 End: 06-01-2023 Subsequent hospital visit by physician Screen Mammo [facility] Mammogram Comment on above: Encounter for screen ing mammogram for breast cancer [Z12.31] Start: 05-24-2023 End: 05-24-2023 Patient encounter procedure Mohini Sanchez APRN.CNP Work Phone: OB/Gynecology Comment on above: Encounter for gyneco logical examination (general) (routine) without abnormal findings (Primary Dx); Encounter for screening mammogram for breast cancer Start: 05-24-2023 End: 05-24-2023 Patient encounter status Mohini Sanchez APRN.CNP Work Phone: [facility] Start: 04-07-2023 End: 04-07-[address] Nadine Salamanca Work Phone: [facility] Internal Medicine Work Phone: Start: 03-24-2023 End: 03-24-[address] Nadine Salamanca Work Phone: [facility] Neurology Work Phone: Start: 03-10-2023 End: 03-10-[address] Nadine Salamanca Work Phone: [facility] Work Phone: Start: 09-20-2022 End: 09-20-[address] Nadine Salamanca Work Phone: [facility] Work Phone: Start: 09-20-2022 End: 09-20-[address] Nadine Salamanca Work Phone: [facility] Start: 07-07-2022 End: 07-07-2022 Encounter for general adult medical examination without abnormal findings Dr. Nadine Salamanca Work Phone: [facility] Start: 07-07-2022 End: 07-07-[address] Nadine Salamanca Work Phone: [facility] Internal Medicine Start: 05-24-2022 End: 05-24-2022 Patient encounter procedure Rosemary Metzger MD Work Phone: OB/Gynecology Comment on above: Encounter for gyneco logical examination (general) (routine) without abnormal findings (Primary Dx); Encounter for screening mammogram for breast cancer Start: 05-24-2022 End: 05-24-2022 Patient encounter status Rosemary Metzger MD Work Phone: OB/Gynecology Start: 05-24-2022 End: 05-24-2022 Subsequent hospital visit by physician Screen Mammo [facility] Wstr Mammogram Comment on above: Encounter for screen ing mammogram for malignant neoplasm of breast [Z12.31] Start: 04-02-2022 End: 04-02-[address] Nadine Salamanca Work Phone: [facility] Work Phone: Start: 04-02-2022 End: 04-02-[address] Nadine Salamanca Work Phone: [facility] Internal Medicine Start: 03-25-2022 End: 03-25-[address] Nadine Salamanca Work Phone: [facility] Neurology Start: 03-24-2022 End: 03-24-[address] Nadine Salamanca Work Phone: [facility] Work Phone: Start: 03-24-2022 End: 03-24-2022 Encounter for general adult medical examination without abnormal findings Dr. Nadine Salamanca Work Phone: [facility] Start: 03-24-2022 End: 03-24-[address] Nadine Salamanca Work Phone: [facility] Medicine Start: 12-15-2021 Telephone encounter Rosemary Metzger MD Work Phone: OB/Gynecology Comment on above: Orders Start: 10-23-2021 End: 10-23-2021 Encounter for general adult medical examination without abnormal findings Dr. Nadine Salamanca Work Phone: [facility] Medicine Start: 10-23-2021 End: 10-23-[address] Nadine Salamanca Work Phone: [facility] Medicine Start: 10-21-2021 End: 10-21-[address] Nadine Salamanca Work Phone: [facility] Start: 09-22-2021 End: 09-22-[address] Nadine Salamanca Work Phone: [facility] Start: 09-21-2021 End: 09-21-[address] Nadine Salamanca Work Phone: [facility] Neurology Start: 09-14-2021 End: 09-14-[address] Nadine Salamanca Work Phone: [facility] Start: 07-29-2021 End: 07-29-[address] Nadine Salamanca Work Phone: [facility] Start: 03-11-[address] Yumi Salamanca Work Phone: [facility] Start: 11-19-2020 ambulatory [facility] Facility:[facility] Start: 01-15-2017 End: 01-15-2017 Emergency department patient visit [facility] Facility:[facility] Start: 11-07-2009 End: 05-11-2012 Patient encounter status Mohini Meltoncalf KATHY Work Phone: [facility] Procedures Date Procedure Procedure Detail Performing Clinician Start: 12-04-[address] Bridger Salamanca MD Work Phone: Start: 12-04-2024 Serum inorganic phosphate measurement Dr Jose Eduardo Salamanca MD Work Phone: Start: 12-04-2024 Urine microalbumin/creatinine ratio measurement Dr. Nadine Salamanca MD Work Phone: Start: 12-04-2024 Vitamin D, 25-hydroxy measurement Dr. Frankie Salamanca MD Work Phone: Comment on above: Vitamin D StatusDeficiency: <20 ng/mL (5 0nmol/L)Insufficiency: 20-30 ng/mL (50-75 nmol/L)Sufficiency: 30-100 ng/mL (75-250 nmol/L)Toxicity: >100 ng/mL (>250 nmol/L) Start: 10-08-2024 X-ray of knee, four or more views Dr. Frankie Salamanca MD Work Phone: Start: 08-03-2024 X-ray of chest, PA and lateral views Dr. Nadine Salamanca MD Work Phone: Start: 08-02-2024 In-vitro immunologic test Dr. Nadine Salamanca MD Work Phone: Comment on above: QuantiFERON-TB Gold Plus is a qualitativ e indirect test forM tuberculosis infection (including disease) and isintended for use in conjunction with risk assessment,radiography, and other medical and diagnostic evaluations.The QuantiFERON-TB Gold Plus result is determined bysubtracting the Nil value from either TB antigen (Ag)value. The Mitogen tube serves as a control for the test. No response to M tub erculosis antigens detected.Infection with M tuberculosis is unlikely, but high riskindividuals should be considered for additional testing(ATS/IDSA/CDC Clinical Practice Guidelines, 2017). Thereference range is an Antigen minus Nil result of <0.35IU/mL.The specimen received for QuantiFERON testing was incubatedby the ordering institution. Specific procedures outlinedin our Directory of Services and in the package insert forthe QuantiFERON Gold (In Tube) test must be followed toenable for proper stimulation of cells for the productionof interferon gamma. Chemiluminescence immunoassaymethodologyPerformed at: [facility] [id number] Director: Ismael Keith PhD, Phone: [phone] Start: 08-02-[address] Bridger Salamanca MD Work Phone: Start: 08-02-2024 Serum inorganic phosphate measurement Dr Jose Eduardo Salamanca MD Work Phone: Start: 08-02-2024 Vitamin D, 25-hydroxy measurement Dr. Frankie Salamanca MD Work Phone: Comment on above: Vitamin D StatusDeficiency: <20 ng/mL (5 0nmol/L)Insufficiency: 20-30 ng/mL (50-75 nmol/L)Sufficiency: 30-100 ng/mL (75-250 nmol/L)Toxicity: >100 ng/mL (>250 nmol/L) Start: 06-25-2024 Complete ultrasound of kidneys and bladder Dr. Nadine Salamanca MD Work Phone: Start: 05-28-2024 Assay of phosphorus inorganic Dr. Deanna Salamanca MD Work Phone: Start: 05-28-2024 Measurement of renal function Dr. Deanna Salamanca MD Work Phone: Comment on above: GFR Calc Start: 05-28-[address] Bridger Salamanca MD Work Phone: Start: 05-28-2024 Vitamin D, 25-hydroxy measurement Dr. Frankie Salamanca MD Work Phone: Comment on above: Vitamin D 25(OH) Status Range Deficiency <20 ng/mL (50nmol/L) Insufficiency 20 - 30 ng/mL (50 - 75 nmol/L) Sufficiency 30 - 100 ng/mL (75 - 250 nmol/L) Toxicity >100 ng/mL (>250 nmol/L) Start: 06-30-[address] Nadine Salamanca Work Phone: Start: 06-01-2023 Screening digital breast tomosynthesis bi Mohini Sanchez APRN.CNP Work Phone: Start: 05-24-2022 Screening mammography bi 2-view breast inc cad Rosemary Metzger MD Work Phone: Start: 04-02-2022 Plain chest X-ray Dr. Nadine Salamanca Work Phone: Start: 09-14-[address] Nadine Salamanca Work Phone: Start: 02-10-2021 Mammography Rosemary Metzger MD Work Phone: Start: 09-13-2016 Colonoscopy Rosemary Metzger MD Work Phone: Start: 05-06-2016 Adult depression screening assessment Re oksana Metzger MD Work Phone: Start: 01-31-2016 Lipid 1996 panel - Serum or Plasma Scree n Wstr Plan of Treatment Date Care Activity Detail Author Start: 09-13-2026 Colonoscopy COLONOSCOPY [facility] Start: 09-13-2026 COLORECTAL CANCER SCREENING COLORECTAL CANCER SCREENING [facility] Start: 09-13-2026 Screening for malign ant neoplasm of colon [facility] Start: 08-02-2025 End: 08-02-2025 Patient encounter procedure Mammogram Comment on above: Encounter for screen ing mammogram for breast cancer [Z12.31] Annual Start: 07-31-2025 Screening for malign ant neoplasm of breast Mammogram Screening [facility] Start: 07-31-2025 Screening for malign ant neoplasm of cervix Cervical Cancer Screening [facility] Start: 01-14-2025 HPV TESTING HPV TESTING [facility] Start: 01-14-2025 PAP TESTING PAP TESTING [facility] Start: 01-14-2025 Screening for malign ant neoplasm of cervix [facility] Start: 12-03-2024 Influenza vaccination [facility] Start: 10-08-2024 X-ray of knee, four or more views Knee 4 or More Views [facility] Start: 10-08-2024 XR Knee GE 4 Views [facility] Start: 06-01-2024 Screening for malign ant neoplasm of breast Mammogram Screening [facility] Start: 12-04-2023 Covid-19 Vaccine ( season) Covid-19 Vaccine () [facility] Start: 12-04-2023 Influenza vaccination Influenza Vacc ine (#1) [facility] Start: 05-24-2023 Mammography Mammogram Screening [facility] Start: 05-24-2023 Screening for malign ant neoplasm of breast Mammogram Screening [facility] Start: 04-04-2023 Depression Assessment Depression Ass essment [facility] Start: 12-03-2022 Covid-19 Vaccine ( season) Covid-19 Vaccine ( season) [facility] Start: 12-03-2022 Influenza vaccination Influenza Vacc ine (#1) [facility] Start: 04-04-2022 DEPRESSION ASSESSMENT DEPRESSION ASS ESSMENT [facility] Start: 04-02-2022 Viral nucleic acid assay [facility] Work Phone: Start: 03-24-2022 Patient referral [facility] Work Phone: Start: 02-10-2022 Mammography MAMMOGRAM [facility] Start: 12-03-2021 Influenza vaccination INFLUENZA (#1) [facility] Start: 01-30-2021 Lipid 1996 panel - Serum or Plasma Lipid Screening [facility] Start: 01-30-2021 Lipid panel Lipid Screening [facility] Start: 01-30-2021 LIPID SCREEN LIPID SCREEN [facility] Start: 01-14-2021 Screening for malign ant neoplasm of cervix Cervical Cancer Screening [facility] Start: 10-20-2020 COVID-19 VACCINE (4 - Booster) COVID-19 VACCINE (4 - Booster) [facility] Start: 08-15-2020 COVID-19 VACCINE (4 - Booster) COVID-19 VACCINE (4 - Booster) [facility] Start: 01-30-2019 DIABETES SCREEN DIABETES SCREEN [facility] Start: 01-30-2019 Diabetes Screening Diabetes Screenin g [facility] Start: 05-06-2017 Adult depression screening assessment DEPRESSION SCREENING [facility] Start: 02-28-2017 End: 02-28-2017 Appointment Appointment [facility] Work Phone: Start: 2016 SHINGRIX VACCINE (1 of 2) SHINGRIX VACCINE (1 of 2) [facility] Start: 2011 COLOGUARD (FIT-DNA) COLOGUARD (FIT-D NA) [facility] Start: [address] COLONOGRAPHY [facility] Start: 2011 FECAL OCCULT BLOOD FECAL OCCULT BLOO D [facility] Start: 2011 Screening for malign ant neoplasm of colon [facility] Start: 2011 SIGMOIDOSCOPY SIGMOIDOSCOPY [facility] Start: 10-06-2008 Urine microalbumin profile [facility] Start: 1985 Hepatitis B Vaccine (1 of 3 - 19+ 3-dose series) Hepatitis B Vaccine (1 of 3 - 19+ 3-dose series) [facility] Start: 1985 Pneumococcal Vaccine : 50+ (1 of 2 - PCV) Pneumococcal Vaccine: 50+ (1 of 2 - PCV) [facility] Start: 1985 Shingrix Vaccine (1 of 2) Shingrix Vaccine (1 of 2) [facility] Start: 1984 ANNUAL PCP TEAM CHIEF TALENT OFFICER GISELL DISEASE VISIT ANNUAL PCP TEAM CHRONIC DISEASE VISIT [facility] Start: 1984 Anxiety Screening Anxiety Screening [facility] Start: 1984 BP CONTROLLED (<130/80) BP CONTROLLE D (<130/80) [facility] Start: 1984 Depression Screening Depression Scre ening [facility] Start: 1984 HEPATITIS C SCREENING HEPATITIS C [facility] Start: 1984 Hepatitis C screening Hepatitis C [facility] Start: 1984 HIV SCREENING HIV SCREENING [facility] Start: 1984 HIV screening HIV Screening [facility] Start: 1966 HEPATITIS B (1 of 3 - 3-dose series) HEPATITIS B (1 of 3 - 3-dose series) [facility] Start: 1966 Hepatitis B Vaccine (1 of 3 - 3-dose series) Hepatitis B Vaccine (1 of 3 - 3-dose series) [facility] End: 06-22-2024 DBT Breast - bilateral screening ARMANDO SCREENING W MOMO Radiology Routine Encounter for screening mammogram for breast cancer 1 Occurrences starting 05/24/2023 until 06/22/2024 [facility] Work Phone: Comment on above: 1 Occurrences starti ng 05/24/2023 until 06/22/2024 End: 08-30-2025 DBT Breast - bilateral screening ARMANDO SCREENING W MOMO Radiology Routine Encounter for gynecological examination (general) (routine) without abnormal findings Encounter for screening mammogram for breast cancer 1 Occurrences starting 07/31/2024 until 08/30/2025 [facility] Work Phone: Comment on above: 1 Occurrences starti ng 07/31/2024 until 08/30/2025 DBT Breast - bilater al screening ARMANDO SCREENING W MOMO Radiology Routine Breast cancer screening by mammogram 07/31/2024 1:06 PM EDT [facility] Work Phone: Lipid 1996 panel - Serum or Plasma [facility] Work Phone: End: 06-23-2023 ARMANDO SCREENING W MOMO ARMANDO SCREENING W MOMO Radiology Routine Encounter for gynecological examination (general) (routine) without abnormal findings Encounter for screening mammogram for breast cancer 1 Occurrences starting 05/24/2022 until 06/23/2023 [facility] Work Phone: Comment on above: 1 Occurrences starti ng 05/24/2022 until 06/23/2023 PAP TEST PAP TEST Lab Rou carlos Encounter for gynecological examination (general) (routine) without abnormal findings Encounter for screening for human papillomavirus (HPV) Pap smear for cervical cancer screening 07/31/2024 1:59 PM EDT [facility] Patient referral [facility] Work Phone: End: 01-14-2023 Screening mammography bi 2-view breast inc cad ARMANDO SCREENING Radiology Routine Encounter for screening mammogram for malignant neoplasm of breast 1 Occurrences starting 12/21/2021 until 01/14/2023 [facility] Work Phone: Comment on above: 1 Occurrences starti ng 12/21/2021 until 01/14/2023 [facility] Work Phone: [facility] Immunizations Immunization Date Immunization Notes Care Provider Marcelo garland 06-20-2020 Covid (Pfizer) Dr. Nadine Salamanca Work Phone: [facility] 05-30-2020 Covid (Pfizer) Dr. Nadine Salamanca Work Phone: [facility] 05-14-2020 COVID-19 original vaccine, age 12+ yr, monovalent ([employer] - PURPLE TOP) Mohini Sanchez APRN.CNP Work Phone: [facility] 03-25-2016 influenza virus vaccine, unspecified formulation Screen Wstr [facility] 10-05-2008 tetanus and diphther ia toxoids, adsorbed, preservative free, for adult use (2 Lf of tetanus toxoid and 2 Lf of diphtheria toxoid) Rosemary Metzger MD Work Phone: [facility] Work Phone: Payers Date Payer Category Payer Self-pay [id number] [id number] 2018 Private Health Insurance MMO SUP ER[employer] PPO Member Subscriber Plan / Payer (Effective 2018-Present) Name: Isi Genao Relation to Subscriber: Self Name: Isi Genao Payer ID: Not on file Type: PPO Address: [place] [id number] 2018 Unknown [id number] 2013 Unknown [id number] 1965 Unknown [id number]. 594 Unknown [id number] Unknown [id number] 2.840.1.422808.3.579.2. 462 Unknown [id number] 2.840.1.307629.3.579.2. 462 Unknown [id number] 2.16840.1.760031.3.579.2. 462 Unknown [id number] 2.16840.1.054202.3.579.2. 462 Unknown [id number] 2.16840.1.672088.3.579.2. 462 Unknown [id number] 2.16840.1.783127.3.579.2. 462 Unknown [id number] 2.16.840.1.791667.3.579.2. 462 Unknown [id number] 2.16.840.1.048679.3.579.2. 462 Unknown [id number] 2.16.840.1.853125.3.579.2. 462 Unknown [id number] 2.16.840.1.967014.3.579.2. 462 Unknown [id number] 2.16.840.1.797211.3.579.2. 462 Unknown [id number] 2.16.840.1.323775.3.579.2. 462 Unknown [id number] 2.16.840.1.735412.3.579.2. 462 Unknown [id number] 2.16.840.1.769793.3.579.2. 462 Unknown [id number] 2.16840.1.367811.3.579.2. 462 Unknown [id number] 2.16.840.1.095222.3.579.2. 462 Unknown [id number] 2.16.840.1.316851.3.579.2. 462 Unknown [id number] 2.16.840.1.594372.3.579.2. 462 Unknown [id number] 2.16840.1.700759.3.579.2. 462 Unknown [id number] 2.16840.1.322860.3.579.2. 462 Unknown [id number] 2.16840.1.646508.3.579.2. 462 Social History Date Type Detail Facility Start: 07-29-2021 End: 04-07-2023 Tobacco smoking status NHIS Unknown if ever smoked [facility] Start: 12-26-[address] [facility] Start: 12-26-[address] [facility] Start: 12-26-2018 Spouse/ Signif icant Other [facility] Start: 1965 Sex Assigned At Female W [facility] Start: 05-28-2013 End: 04-07-2023 Tobacco smoking status NHIS Never smoked tobacco [facility] Start: 05-28-2013 End: 05-24-2022 Tobacco use and exposure Smokeless tobacco non-user [facility] Start: 01-26-2021 End: 07-31-2024 Alcohol intake Current drinker of alcohol (finding) [facility] Start: 1965 Sex Assigned At Not on file C [facility] Start: 05-24-2022 End: 08-26-2022 History of Social function [facility] Start: 05-24-2022 End: 08-26-2022 Tobacco use panel [facility] National Score (1-100), lower number is lower risk 69 [facility] Start: 06-30-2024 End: 07-03-2024 Sex Female (finding) [facility] Functional Status Date Assessment Result Facility 11-04-2014 Are you deaf, or do you have serious difficulty hearing No 11/04/2014 3:38 PM ELIZABETHT Laura Alegria MA No [facility] 11-04-2014 Are you blind, or do you have serious difficulty seeing, even when wearing glasses No 11/04/2014 3:38 PM Laura Weston MA No [facility] 11-04-2014 Do you have serious difficulty walking or climbing stairs No 11/04/2014 3:38 PM Laura Weston MA No [facility] 11-04-2014 Do you have difficul ty dressing or bathing No 11/04/2014 3:38 PM EDT Laura Alegria MA No [facility] 11-04-2014 Because of a physica l, mental, or emotional condition, do you have difficulty doing errands alone such as visiting a physician's office or shopping No 11/04/2014 3:38 PM Laura Weston MA No [facility] Mental Status Date Assessment Result Facility 11-04-2014 Because of a physica l, mental, or emotional condition, do you have serious difficulty concentrating, remembering, or making decisions No 11/04/2014 3:38 PM Laura Weston MA No [facility] Clinical Notes 04-23-2013 to 10-08-2024 Note Date & Type Note Facility 10-08-2024 Evaluation note Diagnosis Onset Date Resolution Knee pain, left acute October 08, 2024 11:41am [facility] Work Phone: 1(315) 927-751107-07-2025 Radiology Diagnostic study note [facility] Imaging Services [address] [place] [address] Knee 4 or More Views MR#: [id number] Acct: [id number] Name: ISI GENAO Rep #: [id number] : 1965 F 59 From: Pet er Peer DO PCP: Dr. Nadine Salamanca MD Status: R EG CLI Study:Knee 4 or More Views Date of Exam: 10/08/24 Exam# [id number] Ordering Dr: Ludivina Guzmán PROCEDURE: KNEE 4 OR MORE VIEWS 10/08/2024 REASON FOR EXAM: LEFT KNEE PAIN TECHNIQUE: KNEE 4 OR MORE VIEWS COMPARISON: None. FINDINGS: Bones: Normal mineralization. No fracture Joints: Joint cartilage intact. No significant periarticular Effusion: Small Soft tissues: Possible prepatellar soft tissue thickening Other: RAD/Knee 4 or More Views IMPRESSION: No acute osseous process. As above Reading [facility] CC: Dr. Nadine Salamanca MD; BETH Astorga ~ Stucco Applicator: Signed [facility]05-05-2025 Progress note* Result Encounter Note - Rosemary Metzger MD - 08/06/2024 11:00 AM EDT Send letter about normal pap if she does not have mychart. Rosemary Metzger MD [facility]05-05-2025 Miscellaneous Notes* Result Encounter Note - Rosemary Metzger MD - 08/06/2024 11:00 AM EDT Send letter about normal pap if she does not have mychart. Rosemary Metzger MD documented [facility] Radiology Diagnostic study note [facility] Services [address] [place] [address] Chest PA and Lateral MR#: [id number] Acct: [id number] Name: ISI GENAO Rep #: [id number] : 1965 F 59 From: Eliezer Flood MD PCP: Dr. Nadine Salamanca MD Status: R EG CLI Study:Chest PA and Lateral Date of Exam: 08/03/24 Exam# [id number] Ordering Dr: Namrata Braden MD PROCEDURE: CHEST PA AND LATERAL 08/03/2024 REASON FOR EXAM: INFLAMMATORY POLYARTHROPATHY TECHNIQUE: Frontal and lateral views of the chest. COMPARISON: 04/02/2022 FINDINGS: The lungs appear clear. Pulmonary vascularity appears within limits. No pleural effusion. The cardiac and mediastinal contours appear within limits. The visualized osseous structures appear within limits. RAD/Chest PA and Lateral IMPRESSION: No evidence of acute disease. Reading Location: [facility] CC: Dr. Nadine Salamanca MD; Dr. Namrata Braden MD ~ Stucco Applicator: Signed [facility]04-29-2025 History of Present illness Narrative* Jessica Diamond, RT(R) - 07/31/2024 12:50 PM EDT Radiology Service Progress Note PATIENT NAME: Isi Genao DATE OF SERVICE: July 31, 2024 TIME: 1:12 PM PATIENT IDENTITY VERIFICATION COMPLETED USING TWO (2) IDENTIFIERS: Name and Date of confirmedby patient verbally. FALL SCREENING: Has the patient had 2 falls in the last year or 1 fall with injury or currently using an Ambulatory Assistive Device (Walker, Cane, Wheelchair, Crutches, etc.)? No PATIENT GENDER DATA: Assigned female at . status: : No status:NO. PATIENT RELEVANT IMPLANT DATA REVIEWED: Not Applicable PATIENT PRESENTS WITH AN IMPLANTABLE OR ATTACHED EDGE WORKER: No RADIOLOGY DEPARTMENT: Mammography PERIPHERAL IV DATA: Not applicable SIGNED BY: RT Khris(Vinnie) July 31, 2024 1:12 PM documented in this encounterOhio[facility]-29-2025 NoteHNO ID: [id number] Author: JESSICA DIAMOND RT(R) Service: ? Author Type: Technologist Type: Progress Notes Filed: 07/31/2024 13:18 Note Text: Radiology Service Progress Note PATIENT NAME: Isi Genao DATE OF SERVICE: July 31, 2024 TIME: 1:12 PM PATIENT IDENTITY VERIFICATION COMPLETED USING TWO (2) IDENTIFIERS: Name and Date of confirmed by patient verbally. FALL SCREENING: Has the patient had 2 falls in the last year or 1 fall with injury or currently using an Ambulatory Assistive Device (Walker, Cane, Wheelchair, Crutches, etc.)? No PATIENT GENDER DATA: Assigned female at . status: : No status: NO. PATIENT RELEVANT IMPLANT DATA REVIEWED: Not Applicable PATIENT PRESENTS WITH AN IMPLANTABLE OR ATTACHED EDGE WORKER: No RADIOLOGY DEPARTMENT: Mammography PERIPHERAL IV DATA: Not applicable SIGNED BY: RT Khris(Vinnie) July 31, 2024 1:12 [place] [facility]04-29-2025 NoteHNO ID: [id number] Author: MOHINI SANCHEZ APRN.SHADE MATCHER Service: ? Author Type: Nurse Practitioner Type: Progress Notes Filed: 07/31/2024 13:57 Note Text: Patient declined biomathematician. Isi is a 59 year old who presents for an annual gynecologic exam without complaints. Postmenopausal: yes since age 55 HRT use: No. Last Pap: 01/21/2020 normal HPV: 01/18/2020 negative History of abnormal no Last mammogram: 2023 today History of abnormal mammogram: Yes Sexually active: Yes OB History Gravida2 Para1 Term0 Preterm0 AB1 Living1 SAB1 IAB0 Ectopic0 Multiple0 Live Births0 Comment: Pt also had 2 Step- children FAMILY HISTORY Problem Relation Age of Onset Hypertension Father Coronary Artery Disease Father first PR/angioplasty age 40's -- MULTPLE interventions other (aortic anuerysm) Father age 38 other (polycystic kidney disease) Father other (brain anuerysm) Sister Cancer Maternal Grandmother ENDOMETRIAL CANCER Breast Cancer Paternal Grandmother other (Polycystic Kidney Disease) Paternal Aunt SOCIAL HISTORY Social History Tobacco Use Smoking status: Never Smokeless tobacco: Never Vaping Use Vaping status: Never Used Substance Use Topics Alcohol use: Yes Comment: [...] skin retraction Allergies and current medication updated:Yes SENSITIVE EXAM: The sensitive examination was discussed with the Patient or Patient's Authorized Blow Machine Tender Starch Spraying. As applicable, any other physician, advance practice provider, medical student, or other health professional student that will be observing or involved in the sensitive examination for educational or training purposes was discussed with the Patient or Authorized Blow Machine Tender Starch Spraying. The Patient or Authorized Blow Machine Tender Starch Spraying has agreed to proceed with the sensitive examination. (Sensitive examination includes inspection and/or palpation of the breasts, pelvis, prostate and anorectal regions). EXAM: BP 132/84 Ht 5' 5.197 (1.66m) Wt 244 lb (110.7kg) LMP 10/29/2020 BMI 40.36 kg/(m2). GENERAL: pleasant, female in no apparent distress HEENT: Normocephalic, atraumatic, mucus membranes moist, and no lesions DERMATOLOGY: Normal, without lesions, non-icteric, and non-hirsute BREAST: soft, non-tender, symmetric, no dominant mass, normal nipple-areolar complex, no lymphadenopathy, and no nipple discharge CHEST: Normal inspiratory effort ABDOMEN: soft, non-tender, and no masses PELVIC: external genitalia normal, normal Bartholin's glands, urethra, Esko's glands, no vulvar lesions, no cervical lesions, physiologic discharge present, normal appearing perineal body and perianal region BIMANUAL: uterus normal size, shape and consistency, no adnexal masses, and non-tender RECTOVAGINAL: deferred. NEURO: alert and oriented x3,exam grossly non-focal EXTREMITIES: normal ASSESSMENT/PLAN: 1) Health maintenance: Pap done with HPV. Mammogram ordered Mammogram up to date Nutrition, exercise and routine health maintenance exams reviewed. Calcium/Vitamin D supplementation information provided. Colon cancer screening: up to date with screening 2) Follow up one year or sooner as needed 3) vaginal Estrace ordered for pain with intercourse Mohini Sanchez APRN.[facility] History of Present illness Narrative* Mohini Sanchez APRN.JOSE - 07/31/2024 12:35 PM EDT Patient declined biomathematician. Isi is a 59 year old who presents for an annual gynecologic exam without complaints. Postmenopausal: yes since age 55 HRT use: No. Last Pap: 01/21/2020 normal HPV: 01/18/2020 negative History of abnormal no Last mammogram: 2023 today History of abnormal mammogram: Yes Sexually active: Yes OB History Gravida2 Para1 Term0 Preterm0 AB1 Living1 SAB1 IAB0 Ectopic0 Multiple0 Live Births0 Comment: Pt also had 2 Step- children FAMILY HISTORY Problem Relation Age of Onset Hypertension Father Coronary Artery Disease Father first PR/angioplasty age 40's -- MULTPLE interventions other (aortic anuerysm) Father age 38 other (polycystic kidney disease) Father other (brain anuerysm) Sister Cancer Maternal Grandmother ENDOMETRIAL CANCER Breast Cancer Paternal Grandmother other (Polycystic Kidney Disease) Paternal Aunt SOCIAL HISTORY Social History Tobacco Use Smoking status: Never Smokeless tobacco: Never Vaping Use Vaping status: Never Used Substance Use Topics Alcohol use: Yes Comment: [...] skin retraction Allergies and current medication updated:Yes SENSITIVE EXAM: The sensitive examination was discussed with the Patient or Patient's Authorized Blow Machine Tender Starch Spraying. As applicable, any other physician, advance practice provider, medical student, or other health professional student that will be observing or involved in the sensitive examination for educational or training purposes was discussed with the Patient or Authorized Blow Machine Tender Starch Spraying. The Patient or Authorized Blow Machine Tender Starch Spraying has agreed to proceed with the sensitive examination. (Sensitive examination includes inspection and/or palpation of the breasts, pelvis, prostate and anorectal regions). EXAM: BP 132/84 Ht 5' 5.197 (1.66m) Wt 244 lb (110.7kg) LMP 10/29/2020 BMI 40.36 kg/(m^2). GENERAL: pleasant, female in no apparent distress HEENT: Normocephalic, atraumatic, mucus membranes moist, and no lesions DERMATOLOGY: Normal, without lesions, non-icteric, and non-hirsute BREAST: soft, non-tender, symmetric, no dominant mass, normal nipple-areolar complex, no lymphadenopathy, and no nipple discharge CHEST: Normal inspiratory effort ABDOMEN: soft, non-tender, and no masses PELVIC: external genitalia normal, normal Bartholin's glands, urethra, Esko's glands, no vulvar lesions, no cervical lesions, physiologic discharge present, normal appearing perineal body and perianal region BIMANUAL: uterus normal size, shape and consistency, no adnexal masses, and non-tender RECTOVAGINAL: deferred. NEURO: alert and oriented x3,exam grossly non-focal EXTREMITIES: normal ASSESSMENT/PLAN: 1) Health maintenance: Pap done with HPV. Mammogram ordered Mammogram up to date Nutrition, exercise and routine health maintenance exams reviewed. Calcium/Vitamin D supplementation information provided. Colon cancer screening: up to date with screening 2) Follow up one year or sooner as needed 3) vaginal Estrace ordered for pain with intercourse Mohini Sanchez APRN.JOSE documented in [facility] encounter[facility] Radiology Diagnostic study note [facility] Imaging Services [address] [place] [address] Kidney and Bladder MR#: [id number] Acct: [id number] Name: ISI GENAO Rep #: [id number] : 1965 F 59 From: Lexii Maloney MD PCP: Dr. Nadine Salamanca MD Status: R EG CLI Study:Kidney and Bladder Date of Exam: 0 06/25/24 Exam# [id number] Ordering Dr: Talon Matthews MD EXAM: US Retroperitoneal Limited, Renal CLINICAL INDICATION: POLYCYSTIC KIDNEY DISEASE TECHNIQUE: Real-time limited ultrasound of the retroperitoneum with image documentation. COMPARISON: No relevant prior studies available. FINDINGS: RIGHT KIDNEY: Multiple right renal cysts, largest measuring up to 6.5 cm. No stones. The right kidney measures 15.5 x 9.0 x 6.9 cm. LEFT KIDNEY: Left renal cysts, largest measuring up to 7.1 cm. No stones. Theleft kidney measures 15.3 x 8.7 x 7.1 cm. BLADDER: Urinary bladder appears normal. Prevoid volume 519 cc. US/Kidney and Bladder IMPRESSION: Multiple bilateral renal cysts. Reading Location: [facility] CC: Dr. Nadine Salamanca MD; Dr. Aaron Matthews MD ~ Stucco Applicator: Signed [facility]03-10-[facility] Evaluation note* Diagnosis Onset Date Resolution Status Admit Date Elevated antinuclear antibod y (FRANK) level acute June 11, 2024 8:23am Anxiety and depression chronic [facility] 2024 8:23am Borderline type 2 diabetes mellitus chronic June 11, 2024 8:23am Hypertension chronic June 11, 2024 8:23am Obstructive sleep apnea chronic arch 2024 8:23am Polycystic kidney disease chronic June 11, 2024 8:23am [facility] Work Phone: 1(701) 324-891603-10-2025 Evaluation note* Diagnosis Onset Date Resolution Status Admit Date Elevated antinuclear antibod y (FRANK) level acute June 11, 2024 8:23am Anxiety and depression chronic [facility] 2024 8:23am Borderline type 2 diabetes mellitus chronic June 11, 2024 8:23am Hypertension chronic June 11, 2024 8:23am Obstructive sleep apnea chronic arch 2024 8:23am Polycystic kidney disease chronic June 11, 2024 8:23am Knee pain, left acute October 08, 2024 11:41am [facility] Work Phone: 1(468) 598-897202-28-2024 History of Present illness Narrative* Polo Khan Mammo Tech - 06/01/2023 3:40 PM EST Radiology Service Progress Note PATIENT NAME: Isi Genao DATE OF SERVICE: June 01, 2023 TIME: 4:11 PM PATIENT IDENTITY VERIFICATION COMPLETED USING TWO (2) IDENTIFIERS: Name and Date of confirmedby patient verbally. FALL SCREENING: Has the patient had 2 falls in the last year or 1 fall with injury or currently using an Ambulatory Assistive Device (Walker, Cane, Wheelchair, Crutches, etc.)? No PATIENT GENDER DATA: Female. status: : No status: NO. PATIENT RELEVANT IMPLANT DATA REVIEWED: Not Applicable PATIENT PRESENTS WITH AN IMPLANTABLE OR ATTACHED EDGE WORKER: No RADIOLOGY DEPARTMENT: Mammography PERIPHERAL IV DATA: Not applicable SIGNED BY: Keisha Kelley June 01, 2023 4:11 PM documented in this encounterOhio[facility]02-20-2024 History of Present illness Narrative* Mohini Sanchez APRN.CNP - 05/24/2023 3:46 PM EST Assurance Assistant offered: Patient declines. Isi is a 58 year old who presents [...] Comment: Pt also had 2 Step- children [employer] History LMP: 10/29/2020 (Exact Date), Postmenopausal Age at Menarche: Age at First : Age at Menopause: [employer] History Comments: Sexual Activity: Yes; Male Contraception: [...] FLX DX W/COLLJ SPEC WHEN PFRMD 02/18/2017 [facility] DILATION & CURETTAGE DX&/THER NONOBSTETRIC 1996 Dilation & curettage FAMILY HISTORY Problem Relation Age of Onset Hypertension Father Coronary Artery Disease Father first PR/angioplasty age 40's -- MULTPLE interventions other (aortic [...] external genitalia normal, normal Bartholin's glands, urethra, Esko's glands, no vulvar lesions, no cervical lesions, [...] one year or sooner as needed Mohini Sanchez APRN.JOSE documented in this encounterOhiohealth [facility]02-20-2023 History of Present illness Narrative* Rosemary Metzger MD - 05/24/2022 8:17 AM EST Isi is a 57 year old who presents for an annual gynecologic exam with complaints, few hotflashes but not enough to want treatment . Postmenopausal: yes HRT use: No. Last Pap: 01/21/2020 normal HPV: 01/18/2020 negative History of abnormal no Last mammogram: 2022 pending History of abnormal mammogram: Yes Sexually active: Yes OB History T0 L1 SAB1 IAB0 Ectopic0 Multiple0 Live Births0 Comment: Pt also had 2 Step- children [employer] History LMP: 10/29/2020 (Exact Date), Postmenopausal Age at Menarche: Age at First : Age at Menopause: [employer] History Comments: Sexual Activity: Yes; Male Contraception: [...] FLX DX W/COLLJ SPEC WHEN PFRMD 02/18/2017 [facility] DILATION & CURETTAGE DX&/THER NONOBSTETRIC 1996 Dilation & curettage FAMILY HISTORY Problem Relation Age of Onset Hypertension Father Coronary Artery Disease Father first PR/angioplasty age 40's -- MULTPLE interventions other (aortic [...] external genitalia normal, normal Bartholin's glands, urethra, Esko's glands, no vulvar lesions, no cervical lesions, [...] up one year or sooner as needed Rosemary Metzger MD documented in this encounterOhio[facility]09-13-2022 Miscellaneous Notes* Telephone Encounter - Verónica Abbasi - 12/15/2021 2:20 PM EDT Patient is scheduled for mammogram screening 03/01/22 (requested to be scheduled on that specific date). Please submit order prior to appointment. Thank you. documented in this encounterOhiohealth Mansfield Hospital01-20-2014 History of Past illness Narrative* Problem Noted Date Resolved Date Hypothyroidism 04/23/2013 03/25/2016 Routine general medical exam ination at a health care facility 11/07/2009 05/11/2012 Overview: 11/07/2009, from Dr. Dinero Routine gynecological examination 11/07/2009 05/11/2012 Overview: [facility] for Prescription of Oral Cont raceptives 03/30/2005 05/11/2012 documented as of this encounter (statuses as of 12/21/2021) [facility] History of Past illness Narrative* Problem Noted Date Resolved Date Hypothyroidism 04/23/2013 03/25/2016 Routine general medical exam ination at a health care facility 11/07/2009 05/11/2012 Overview: 11/07/2009, from Dr. Dinero Routine gynecological examination 11/07/2009 05/11/2012 Overview: [facility], [facility] for Prescription of Oral Cont raceptives 03/30/2005 05/11/2012 documented as of this encounter (statuses as of 05/24/2022) [facility] History of Past illness Narrative* Problem Noted Date Diagnosed Date Resolved Date Hypothyroidism 04/23/2013 03/25/2016 Routine general medical exam ination at a health care facility 11/07/2009 05/11/2012 Overview: 11/07/2009, from Dr. Dinero Routine gynecological examination 11/07/2009 05/11/2012 Overview: [facility], [facility] for Presc ription of Oral Contraceptives 03/30/2005 05/11/2012 documented as of this encounter (statuses as of 02/06/2023) [address]20-2014 History of Past illness Narrative* Problem Noted Date Diagnosed Date Resolved Date Hypothyroidism 04/23/2013 03/25/2016 Routine general medical exam ination at a health care facility 11/07/2009 05/11/2012 Overview: 11/07/2009, from Dr. Dinero Routine gynecological examination 11/07/2009 05/11/2012 Overview: [facility], [facility] for Presc ription of Oral Contraceptives 03/30/2005 05/11/2012 documented as of this encounter (statuses as of 05/24/2023) [facility] History of Past illness Narrative* Problem Noted Date Diagnosed Date Resolved Date Hypothyroidism 04/23/2013 03/25/2016 Routine general medical exam ination at a health care facility 11/07/2009 05/11/2012 Overview: 11/07/2009, from Dr. Dinero Routine gynecological examination 11/07/2009 05/11/2012 Overview: [facility], [facility] for Presc ription of Oral Contraceptives 03/30/2005 05/11/2012 documented as of this encounter (statuses as of 06/02/2023) [facility]* Diagnosis Onset Date Resolution Status Anxiety and depression chron ic Hyperlipemia chronic Hypertension chronic Polycystic kidney disease [facility] Work Phone: Evaluation note* Diagnosis Onset Date Resolution Status Anxiety and depression chron ic Hyperlipemia chronic Hypertension chronic Polycystic kidney disease [facility] Cerebrovascular disease acut e Complement abnormality acute Memory loss due to medical condition [facility] Work Phone: Evaluation note* Diagnosis Onset Date Resolution Status Anxiety and depression chron ic Hyperlipemia chronic Hypertension chronic Polycystic kidney disease [facility] Cerebrovascular disease acut e Complement abnormality acute Memory loss due to medical condition acute Health care maintenance acut e Anxiety and depression chron ic Hypertension chronic Polycystic kidney disease [facility] Work Phone: Evaluation note* Diagnosis Encounter for screening mammogram for malignant neoplasm of breast- Primary Other screening mammogram documented in this encounter [facility] note* Diagnosis Onset Date Resolution Status Health care maintenance acut e Post-viral cough syndrome ac [place] Anxiety and depression chron ic Hypertension chronic Polycystic kidney disease [place] 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 Chest congestion acute Cough acute [facility] Work Phone: Evaluation note* Diagnosis Encounter for gynecological examination (general) (routine) without abnormal findings- Primary Encounter for screening mammogram for breast cancer [facility]* Diagnosis Onset Date Resolution Status Health care maintenance acut e Allergies chronic Anxiety and depression chron ic Hyperlipemia chronic Hypertension chronic [facility] Work Phone: Evaluation note* Diagnosis Encounter for screening mammogram for malignant neoplasm of breast Other screening mamm[facility] Diagnosis Encounter for gynecological examination (general) (routine) without abnormal findings- Primary Encounter for screening mammogram for breast cancer [facility]* Diagnosis Encounter for screening mammogram for breast cancer documented [facility] this encounter [facility]* Diagnosis Onset Date Resolution Status Acute sinusitis, unspecified acute 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 Anxiety and depression chron ic Borderline type 2 diabetes mellitus chronic Hypertension chronic Insomnia chronic [facility] Work Phone: Evaluation note* Diagnosis Encounter for gynecological examination (general) (routine) without abnormal findings- Primary Encounter for screening for human papillomavirus (HPV) Special screening examination for human papillomavirus (HPV) Pap smear for cervical cancer screening Screening for malignant neoplasm of the cervix Encounter for screening mammogram for breast cancer Vaginal atrophy Postmenopausal atrophic vaginitis [facility] encounter [facility]* Diagnosis Breast cancer screening by mammogram documented in this encounter [facility] for referral (narrative)* Diagnostic Procedure Only (Routine) - Pending Review Specialty Diagnoses / Procedures Referred By Brain t Referred To Contact [facility] Diagnoses Encounter for screening mammogram for malignant neoplasm of breast Procedures ARMANDO SCREENING SCREENING MAMMOGRAPHY BI 2-VIEW BREAST INC Rosemary Brambila MD [address] [place] [address] [facility] [address] [place] [phone] Referral ID Status Reason Start Date Expiration Date Visits Requested Visits Authorized [id number] Pending Review Auto-Generat ed Referral 12/21/2021 01/14/2023 [address] [facility] for referral (narrative)* Diagnostic Procedure Only (Routine) - Authorized Specialty Diagnoses / Procedures Referred By Brain t Referred To Contact [facility] Diagnoses Encounter for gynecological examination (general) (routine) without abnormal findings Encounter for screening mammogram for breast cancer Procedures ARMANDO SCREENING W MOMO SCREENING DIGITAL BREAST TOMOSYNTHESIS BI SCREENING MAMMOGRAPHY BI 2-VIEW BREAST INC CAD Rosemary Metzger MD [address] [place] [address] [facility] [address] [place] [phone] Referral ID Status Reason Start Date Expiration Date Visits Requested Visits Authorized [id number] Authorized Auto-Generat ed Referral 05/24/2022 06/23/2023 [address] [facility] for referral (narrative)* Diagnostic Procedure Only (Routine) - Closed Specialty Diagnoses / Procedures Referred By Brain abdullahi Referred To Contact [facility] Diagnoses Encounter for screening mammogram for malignant neoplasm of breast Procedures ARMANDO SCREENING SCREENING MAMMOGRAPHY BI 2-VIEW BREAST INC Rosemary Brambila MD [address] [place] [address] [facility] [address] [place] [address] Referral ID Status Reason Start Date Expiration Date V isits Requested Visits Authorized [id number] Closed Auto-Generate d Referral 12/21/2021 01/14/2023 1 1 [facility] for referral (narrative)* Diagnostic Procedure Only (Routine) - Pending Review Specialty Diagnoses / Procedures Referred By Brain abdullahi Referred To Contact [facility] Diagnoses Encounter for screening mammogram for breast cancer Procedures ARMANDO SCREENING W MOMO SCREENING DIGITAL BREAST TOMOSYNTHESIS BI SCREENING MAMMOGRAPHY BI 2-VIEW BREAST INC CAD [place] Mohini, NEMO.SHADE MATCHER [address] [place] [address] [facility] [address] [place] [address] Referral ID Status Reason Start Date Expiration Date Visits Requested Visits Authorized [id number] Pending Review Auto-Generat ed Referral 05/24/2023 06/22/2024 [address] [facility] for referral (narrative)* Diagnostic Procedure Only (Routine) - Closed Specialty Diagnoses / Procedures Referred By Brain t Referred To Contact [facility] Diagnoses Encounter for screening mammogram for breast cancer Procedures ARMANDO SCREENING W MOMO SCREENING DIGITAL BREAST TOMOSYNTHESIS BI SCREENING MAMMOGRAPHY BI 2-VIEW BREAST INC CAD LauraMohini, NEMO.SHADE MATCHER [address] [place] [address] [facility] [address] [place] [address] Referral ID Status Reason Start Date Expiration Date V isits Requested Visits Authorized [id number] Closed Auto-Generate d Referral 05/24/2023 06/22/2024 [address] [facility] for referral (narrative)No reason for referral information availableWSelect Medical [facility] Work Phone: Reason for visit Narrative* Diagnostic Procedure Only (Routine) - Closed Specialty Diagnoses / Procedures Referred By Contac t Referred To Contact [facility] Diagnoses Encounter for screening mammogram for malignant neoplasm of breast Procedures ARMANDO SCREENING SCREENING MAMMOGRAPHY BI 2-VIEW BREAST INC CAD Rosemary Metzger MD [address] [place] [address] [facility] [address] [place] [address] Referral ID Status Reason Start Date Expiration Date V isits Requested Visits Authorized [id number] Closed Auto-Generate d Referral 12/21/2021 01/14/2023 [address] [facility] for visit Narrative* Diagnostic Procedure Only (Routine) - Closed Specialty Diagnoses / Procedures Referred By Contkely t Referred To Contact [facility] Diagnoses Encounter for screening mammogram for breast cancer Procedures ARMANDO SCREENING W MOMO SCREENING DIGITAL BREAST TOMOSYNTHESIS BI SCREENING MAMMOGRAPHY BI 2-VIEW BREAST INC CAD LauraMohini, COMMUNICATIONS DEPARTMENT CHAIR.SHADE MATCHER [address] [place] [address] [facility] [address] [place] [address] Referral ID Status Reason Start Date Expiration Date V isits Requested Visits Authorized [id number] Closed Auto-Generate d Referral 05/24/2023 06/22/2024 [address] [facility] for visit Narrative* Diagnostic Procedure Only (Routine) - Closed Specialty Diagnoses / Procedures Referred By Brain abdullahi Referred To Contact [facility] Diagnoses Breast cancer screening by mammogram Procedures ARMANDO SCREENING W MOMO SCREENING DIGITAL BREAST TOMOSYNTHESIS BI SCREENING MAMMOGRAPHY BI 2-VIEW BREAST INC [employer] LauraMohini, COMMUNICATIONS DEPARTMENT CHAIR.SHADE MATCHER [address] [facility] [address] Phone: tel: fax: [facility] [address] [place] [address] Referral ID Status Reason Start Date Expiration Date V isits Requested Visits Authorized [id number] Closed Auto-Generate d Referral 05/10/2024 06/08/2025 1 1 [facility] Summary Purpose Family History No Family History Records Found Relationship Condition Age at Onset Recorded Date/T niki father Cardiac disease Unknown Hyperlipidemia Unknown Hypertension Unknown Kidney disorder Unknown grandmother Malignant neoplasm of breast Unknown grandmother Malignant neoplasm Unknown sister Cerebral aneurysm Unknown grandfather Cerebrovascular accident (CVA) Unknown Advance Directives No Advanced Directives Records Found Advance Directive Response Recorded Date/ Time Living Will Yes December 31, 2020 9:25am Power of Educational Manager Yes December 9:25am Advance Directive Response Recorded Date/ Time Living Will Yes December 31, 2020 8:25am Power of Educational Manager Yes December 8:25am Advance Directive Response Recorded Date/ Time Living Will Yes April 07 5:54pm Power of Educational Manager Yes April 07 5:54pm Advance Directive Response Recorded Date/ Time Living Will Yes March 04 1:15am Do you have a Healthcare Power of Educational Manager? Yes March 04, 2024 1:15am Living Will Yes May 05 2:45am Do you have a Healthcare Power of Educational Manager? Yes May 05, 2024 2:45am Living Will Yes June 02, 2024 2:08am Do you have a Healthcare Power of Educational Manager? Yes June 02, 2024 2:08am Living Will Yes April 04 1:11am Do you have a Healthcare Power of Educational Manager? Yes April 04, 2024 1:11am Advance Directive Response Recorded Date/ Time Living Will Yes May 05 2:45am Do you have a Healthcare Power of Educational Manager? Yes May 05, 2024 2:45am Living Will Yes June 02, 2024 2:08am Do you have a Healthcare Power of Educational Manager? Yes June 02, 2024 2:08am Living Will Yes July 03, 2024 12:19am Do you have a Healthcare Power of Educational Manager? Yes July 03, 2024 12:19am Living Will Yes April 04 1:11am Do you have a Healthcare Power of Educational Manager? Yes April 04, 2024 1:11am Advance Directive Response Recorded Date/ Time Living Will Yes May 05 2:45am Do you have a Healthcare Power of Educational Manager? Yes May 05, 2024 2:45am Living Will Yes June 02, 2024 2:08am Do you have a Healthcare Power of Educational Manager? Yes June 02, 2024 2:08am Living Will Yes July 03, 2024 12:19am Do you have a Healthcare Power of Educational Manager? Yes July 03, 2024 12:19am Living Will Yes August 02, 2024 12 :10am Do you have a Healthcare Power of Educational Manager? Yes August 02, 2024 12:10am Advance Directive Response Recorded Date/ Time Living Will Yes June 02, 2024 2:08am Do you have a Healthcare Power of Educational Manager? Yes June 02, 2024 2:08am Living Will Yes July 03, 2024 12:19am Do you have a Healthcare Power of Educational Manager? Yes July 03, 2024 12:19am Living Will Yes August 02, 2024 12 :10am Do you have a Healthcare Power of Educational Manager? Yes August 02, 2024 12:10am Living Will Yes September 02, 2024 1 2:08am Do you have a Healthcare Power of Educational Manager? Yes September 02, 2024 12:08am Advance Directive Response Recorded Date/ Time Living Will Yes July 03, 2024 12:19am Do you have a Healthcare Power of Educational Manager? Yes July 03, 2024 12:19am Living Will Yes August 02, 2024 12 :10am Do you have a Healthcare Power of Educational Manager? Yes August 02, 2024 12:10am Living Will Yes September 02, 2024 1 2:08am Do you have a Healthcare Power of Educational Manager? Yes September 02, 2024 12:08am Advance Directive Response Recorded Date/ Time Living Will Yes August 02, 2024 12 :10am Do you have a Healthcare Power of Educational Manager? Yes August 02, 2024 12:10am Living Will Yes September 02, 2024 1 2:08am Do you have a Healthcare Power of Educational Manager? Yes September 02, 2024 12:08am Advance Directive Response Recorded Date/ Time Living Will Yes September 02, 2024 1 2:08am Do you have a Healthcare Power of Educational Manager? 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 Health care maintenance Anxiety and depression Hypertension Polycystic kidney disease Chief Complaint 5 M FU 6 M FU LINGERING COUGH Reason for Visit Health care maintena nce Post-viral cough syndrome Anxiety and depression Hypertension Polycystic kidney disease History of cerebrovascular disease Memory loss due to medical condition Chest congestion Cough Chief Complaint 3 M FU Reason for Visit Health care maintena nce Allergies Anxiety and depression Hyperlipemia Hypertension Chief Complaint CONCERN FOR SINUS IN FECTION 1 Y FU follow up Reason for Visit Acute sinusitis, uns pecified History of cerebrovascular disease Memory loss due to medical condition Anxiety and depression Borderline type 2 diabetes mellitus Hypertension Insomnia Chief Complaint CONCERN FOR SINUS IN FECTION 1 Y FU follow up POLYCYSTIC KIDNEY Reason for Visit Acute sinusitis, uns pecified History of cerebrovascular disease Memory loss due to medical condition Anxiety and depression Borderline type 2 diabetes mellitus Hypertension Insomnia Chief Complaint Admit Date RECURRING LABS April 02, 2024 9:23am RECURRING LABS April 30, 2024 3 :15pm RECURRING LABS May 29, 2024 10:21am 4 M FU June 11, 2024 8:2 3am RECURRING LABS June 25, 2024 11: 09am PCK June 25, 2024 12: 44pm Reason for Visit Admit Date Elevated antinuclear antibody (FRANK) viviane l June 11, 2024 8:23am Anxiety and depression June 11, 2024 8:23am Borderline type 2 diabetes mellitus Dax h 2024 8:23am Hypertension June 11, 2024 8:2 3am Obstructive sleep apnea June 11, 2024 8:23am Polycystic kidney disease June 11 8:23am Chief Complaint Admit Date RECURRING LABS April 30, 2024 3 :15pm RECURRING LABS May 29, 2024 10:21am 4 M FU June 11, 2024 8:2 3am RECURRING LABS June 25, 2024 11: 09am PCK June 25, 2024 12: 44pm RECURRING LABS July 23, 2024 3:1 9pm CXR August 03, 2024 3:34pm Chief Complaint Admit Date RECURRING LABS May 29, 2024 10:21am 4 M FU June 11, 2024 8:2 3am RECURRING LABS June 25, 2024 11: 09am PCK June 25, 2024 12: 44pm RECURRING LABS July 23, 2024 3:1 9pm CXR August 03, 2024 3:34pm RECURRING LABS August 17, 2024 11:00 am Chief Complaint Admit Date 4 M FU June 11, 2024 8:2 3am RECURRING LABS June 25, 2024 11: 09am PCK June 25, 2024 12: 44pm RECURRING LABS July 23, 2024 3:1 9pm CXR August 03, 2024 3:34pm RECURRING LABS August 17, 2024 11:00 am RECURRING LABS September 17, 2024 9:30 am Chief Complaint Admit Date 4 M FU June 11, 2024 8:2 3am RECURRING LABS June 25, 2024 11: 09am PCK June 25, 2024 12: 44pm RECURRING LABS July 23, 2024 3:1 9pm CXR August 03, 2024 3:34pm RECURRING LABS August 17, 2024 11:00 am RECURRING LABS September 17, 2024 9:30 am L KNEE PAIN October 08, 2024 11:41 am left knee pain October 08, 2024 12:33 pm Reason for Visit Admit Date Elevated antinuclear antibody (FRANK) leve l June 11, 2024 8:23am Anxiety and depression June 11, 2024 8:23am Borderline type 2 diabetes mellitus Dax 2024 8:23am Hypertension June 11, 2024 8:2 3am Obstructive sleep apnea June 11, 2024 8:23am Polycystic kidney disease June 11 8:23am Knee pain, left October 08, 2024 11:41 am Chief Complaint Admit Date RECURRING LABS June 25, 2024 11: 09am PCK June 25, 2024 12: 44pm RECURRING LABS July 23, 2024 3:1 9pm CXR August 03, 2024 3:34pm RECURRING LABS August 17, 2024 11:00 am RECURRING LABS September 17, 2024 9:30 am L KNEE PAIN October 08, 2024 11:41 am left knee pain October 08, 2024 12:33 pm Reason for Visit Admit Date Knee pain, left October 08, 2024 11:41 am Chief Complaint Admit Date RECURRING LABS July 23, 2024 3:1 9pm CXR August 03, 2024 3:34pm RECURRING LABS August 17, 2024 11:00 am RECURRING LABS September 17, 2024 9:30 am L KNEE PAIN October 08, 2024 11:41 am left knee pain October 08, 2024 12:33 pm RECURRING LABS October 15, 2024 10:5 0am Chief Complaint Admit Date RECURRING LABS July 23, 2024 3:1 9pm CXR August 03, 2024 3:34pm RECURRING LABS August 17, 2024 11:00 am RECURRING LABS September 17, 2024 9:30 am L KNEE PAIN October 08, 2024 11:41 am left knee pain October 08, 2024 12:33 pm RECURRING LABS October 15, 2024 10:5 0am RECURRING LABS November 12, 2024 10 :54am Chief Complaint Admit Date RECURRING LABS August 17, 2024 11:00 am RECURRING LABS September 17, 2024 9:30 am L KNEE PAIN October 08, 2024 11:41 am left knee pain October 08, 2024 12:33 pm RECURRING LABS October 15, 2024 10:5 0am RECURRING LABS November 12, 2024 10 :54am Chief Complaint Admit Date RECURRING LABS September 17, 2024 9:30 am L KNEE PAIN October 08, 2024 11:41 am left knee pain October 08, 2024 12:33 pm RECURRING LABS October 15, 2024 10:5 0am RECURRING LABS November 12, 2024 10 :54am Additional Source Comments INFORMATION SOURCE (unrecogn ized section and content) DATE CREATED AUTHOR 09/27/2017 [facility] DATE CREATED AUTHOR AUTHOR'S ORGANIZ ATION 11/21/2020 [facility] DATE CREATED AUTHOR AUTHOR'S ORGANIZ ATION 08/09/2024 [facility] DATE CREATED AUTHOR AUTHOR'S ORGANIZ ATION 02/03/2025 [facility] Goals (unrecognized section and content) Goals may be documented in a n alternate sectionGoals may be documented in an alternate sectionGoals may be documented in an alternate sectionGoals may be documented in an alternate sectionGoals may be documented in an alternate sectionGoals may be documented in an alternate sectionGoals may be documented in an alternate sectionGoals may be documented in an alternate sectionGoals may be documented in an alternate sectionGoals may be documented in an alternate sectionGoals may be documented in an alternate sectionGoals may be documented in an alternate sectionGoals may be documented in an alternate sectionGoals may be documented in an alternate sectionGoals may be documented in an alternate sectionGoals may be documented in an alternate sectionGoals may be documented in an alternate sectionGoals may be documented in an alternate sectionGoals may be documented in an alternate sectionGoals may be documented in an alternate sectionGoals may be documented in an alternate section Source Comments (unrecognize d section and content) In the event this informatio n is protected by the Federal Confidentiality of Alcohol and Drug Abuse Patient Records regulations: The Federal rules restrict any use of the information to criminally investigate or prosecute any alcohol or drug abuse patient.[facility] the event this information is protected by the Federal Confidentiality of Alcohol and Drug Abuse Patient Records regulations: The Federal rules restrict any use of the information to criminally investigate or prosecute any alcohol or drug abuse patient.[facility] the event this information is protected by the Federal Confidentiality of Alcohol and Drug Abuse Patient Records regulations: The Federal rules restrict any use of the information to criminally investigate or prosecute any alcohol or drug abuse patient.[facility] the event this information is protected by the Federal Confidentiality of Alcohol and Drug Abuse Patient Records regulations: The Federal rules restrict any use of the information to criminally investigate or prosecute any alcohol or drug abuse patient.[facility] the event this information is protected by the Federal Confidentiality of Alcohol and Drug Abuse Patient Records regulations: The Federal rules restrict any use of the information to criminally investigate or prosecute any alcohol or drug abuse patient.[facility] the event this information is protected by the Federal Confidentiality of Alcohol and Drug Abuse Patient Records regulations: The Federal rules restrict any use of the information to criminally investigate or prosecute any alcohol or drug abuse patient.[facility] the event this information is protected by the Federal Confidentiality of Alcohol and Drug Abuse Patient Records regulations: The Federal rules restrict any use of the information to criminally investigate or prosecute any alcohol or drug abuse patient.[facility] the event this information is protected by the Federal Confidentiality of Alcohol and Drug Abuse Patient Records regulations: The Federal rules restrict any use of the information to criminally investigate or prosecute any alcohol or drug abuse patient.[facility] the event this information is protected by the Federal Confidentiality of Alcohol and Drug Abuse Patient Records regulations: The Federal rules restrict any use of the information to criminally investigate or prosecute any alcohol or drug abuse patient.[facility] Reason for Visit (unrecogniz ed section and content) Reason Comments Orders Reason Comments Yearly Exam With Mammogram Reason Comments [facility] Teams (unrecognized sec tion and content) Team Status: Active Member Role Status Dates Dr. Nadine Salamanca MD Family Provider Active Dr. Nadine Salamanca MD Primary Care Provider Active Team Status: Inactive Member Role Status Dates Dr. Nadine Salamanca MD Primary Care P trino, Attending Provider, Referring Provider Active Team Status: Inactive Member Role Status Dates Dr. Nadine Salamanca MD Primary Care Provider Active Dr. Aaron Matthews MD Attending Provider Active Team Status: Inactive Member Role Status Dates Dr. Nadine Salamanca MD Primary Care Provider, Refer ring Provider Active Dr. Espinoza Pires MD Attending Provider Active Team Status: Inactive Member Role Status Dates Dr. Nadine Salamanca MD Primary Care Provider, Refer ring Provider Active Jori CAMPOS, [place] Attending Provider Active Team Status: Active Member Role Status Dates Dr. Nadine Salamanca MD Primary Care Provider Active Dr. Aaron Matthews MD Attending Provider Active Team Status: Inactive Member Role Status Dates Dr. Nadine Salamanca MD Primary Care Provider Active Dr. Aaron Matthews MD Attending Provider, Referring Pr ovider Active Team Status: Active Member Role Status Dates Dr. Nadine Salamanca MD Primary Care Provider Active Team Status: Inactive Member Role Status Dates Dr. Nadine Salamanca MD Primary Care Provider Active Start: April 02, 2024 End: April 03, 2024 Dr. Aaron Matthews MD Attending Provider Active Start: April 02, 2024 End: April 03, 2024 Dr. Aaron Matthews MD Referring Provider Active Start: April 02, 2024 End: April 03, 2024 Team Status: Inactive Member Role Status Dates Dr. Nadine Salamanca MD Primary Care Provider Active Start: April 30, 2024 End: May 04, 2024 Dr. Aaron Matthews MD Attending Provider Active Start: April 30, 2024 End: May 04, 2024 Dr. Aaron Matthews MD Referring Provider Active Start: April 30, 2024 End: May 04, 2024 Team Status: Inactive Member Role Status Dates Dr. Nadine Salamanca MD Primary Care Provider Active Start: May 29, 2024 End: June 01, 2024 Dr. Aaron Matthews MD Attending Provider Active Start: May 29, 2024 End: June 01, 2024 Dr. Aaron Matthews MD Referring Provider Active Start: May 29, 2024 End: June 01, 2024 Team Status: Inactive Member Role Status Dates Dr. Nadine Salamanca MD Primary Care Provider Active Start: June 11, 2024 End: June 11, 2024 Dr. Nadine Salamanca MD Attending Provider Active Start: June 11, 2024 End: June 11, 2024 Dr. Nadine Salamanca MD Referring Provider Active Start: June 11, 2024 End: June 11, 2024 Team Status: Active Member Role Status Dates Dr. Nadine Salamanca MD Primary Care Provider Active Start: June 25, 2024 Dr. Aaron Matthews MD Attending Provider Active Start: June 25, 2024 Dr. Aaron Matthews MD Referring Provider Active Start: June 25, 2024 Team Status: Inactive Member Role Status Dates Dr. Nadine Salamanca MD Primary Care Provider Active Start: June 25, 2024 End: June 25, 2024 Dr. Aaron Matthews MD Attending Provider Active Start: June 25, 2024 End: June 25, 2024 Dr. Aaron Matthews MD Referring Provider Active Start: June 25, 2024 End: June 25, 2024 Team Status: Inactive Member Role Status Dates Dr. Nadine Salamanca MD Primary Care Provider Active Start: June 25, 2024 End: July 02, 2024 Dr. Aaron Matthews MD Attending Provider Active Start: June 25, 2024 End: July 02, 2024 Dr. Aaron Matthews MD Referring Provider Active Start: June 25, 2024 End: July 02, 2024 Team Status: Inactive Member Role Status Dates Dr. Nadine Salamanca MD Primary Care Provider Active Start: July 23, 2024 End: August 01, 2024 Dr. Aaron Matthews MD Attending Provider Active Start: July 23, 2024 End: August 01, 2024 Dr. Aaron Matthews MD Referring Provider Active Start: July 23, 2024 End: August 01, 2024 Dr. Namrata Braden MD Other Provider Active St art: July 23, 2024 End: August 01, 2024 Team Status: Active Member Role Status Dates Dr. Nadine Salamanca MD Primary Care Provider Active Start: August 02, 2024 Dr. Namrata Braden MD Attending Provider Active Start: August 02, 2024 Dr. Namrata Braden MD Referring Provider Active Start: August 02, 2024 Team Status: Inactive Member Role Status Dates Dr. Nadine Salamanca MD Primary Care Provider Active Start: August 03, 2024 End: August 03, 2024 Dr. Namrata Braden MD Attending Provider Active Start: August 03, 2024 End: August 03, 2024 Dr. Namrata Braden MD Referring Provider Active Start: August 03, 2024 End: August 03, 2024 Team Status: Inactive Member Role Status Dates Dr. Nadine Salamanca MD Primary Care Provider Active Start: August 02, 2024 End: August 02, 2024 Dr. Namrata Braden MD Attending Provider Active Start: August 02, 2024 End: August 02, 2024 Dr. Namrata Braden MD Referring Provider Active Start: August 02, 2024 End: August 02, 2024 Team Status: Inactive Member Role Status Dates Dr. Nadine Salamanca MD Primary Care Provider Active Start: August 17, 2024 End: September 01, 2024 Dr. Aaron Matthews MD Attending Provider Active Start: August 17, 2024 End: September 01, 2024 Dr. Aaron Matthews MD Referring Provider Active Start: August 17, 2024 End: September 01, 2024 Dr. Namrata Braden MD Other Provider Active St art: August 17, 2024 End: September 01, 2024 Team Status: Active Member Role/Relationship Status Dates Dr. Nadine Salamanca MD Primary Care Provider Active Team Status: Inactive Member Role/Relationship Status Dates Dr. Nadine Salamanca MD Primary Care Provider Active Start: June 11, 2024 End: June 11, 2024 Dr. Nadine Salamanca MD Attending Provider Active Start: June 11, 2024 End: June 11, 2024 Dr. Nadine Salamanca MD Referring Provider Active Start: June 11, 2024 End: June 11, 2024 Team Status: Inactive Member Role/Relationship Status Dates Dr. Nadine Salamanca MD Primary Care Provider Active Start: June 25, 2024 End: July 02, 2024 Dr. Aaron Matthews MD Attending Provider Active Start: June 25, 2024 End: July 02, 2024 Dr. Aaron Matthews MD Referring Provider Active Start: June 25, 2024 End: July 02, 2024 Team Status: Inactive Member Role/Relationship Status Dates Dr. Nadine Salamanca MD Primary Care Provider Active Start: June 25, 2024 End: June 25, 2024 Dr. Aaron Matthews MD Attending Provider Active Start: June 25, 2024 End: June 25, 2024 Dr. Aaron Matthews MD Referring Provider Active Start: June 25, 2024 End: June 25, 2024 Team Status: Inactive Member Role/Relationship Status Dates Dr. Nadine Salamanca MD Primary Care Provider Active Start: July 23, 2024 End: August 01, 2024 Dr. Aaron Matthews MD Attending Provider Active Start: July 23, 2024 End: August 01, 2024 Dr. Aaron Matthews MD Referring Provider Active Start: July 23, 2024 End: August 01, 2024 Dr. Namrata Braden MD Other Provider Active St art: July 23, 2024 End: August 01, 2024 Team Status: Inactive Member Role/Relationship Status Dates Dr. Nadine Salamanca MD Primary Care Provider Active Start: August 02, 2024 End: August 02, 2024 Dr. Namrata Braden MD Attending Provider Active Start: August 02, 2024 End: August 02, 2024 Dr. Namrata Braden MD Referring Provider Active Start: August 02, 2024 End: August 02, 2024 Team Status: Inactive Member Role/Relationship Status Dates Dr. Nadine Salamanca MD Primary Care Provider Active Start: August 03, 2024 End: August 03, 2024 Dr. Namrata Braden MD Attending Provider Active Start: August 03, 2024 End: August 03, 2024 Dr. Namrata Braden MD Referring Provider Active Start: August 03, 2024 End: August 03, 2024 Team Status: Inactive Member Role/Relationship Status Dates Dr. Nadine Salamanca MD Primary Care Provider Active Start: August 17, 2024 End: September 01, 2024 Dr. Aaron Matthews MD Attending Provider Active Start: August 17, 2024 End: September 01, 2024 Dr. Aaron Matthews MD Referring Provider Active Start: August 17, 2024 End: September 01, 2024 Dr. Namrata Braden MD Other Provider Active St art: August 17, 2024 End: September 01, 2024 Team Status: Inactive Member Role/Relationship Status Dates Dr. Nadine Salamanca MD Primary Care Provider Active Start: September 17, 2024 End: October 01, 2024 Dr. Aaron Matthews MD Attending Provider Active Start: September 17, 2024 End: October 01, 2024 Dr. Aaron Matthews MD Referring Provider Active Start: September 17, 2024 End: October 01, 2024 Dr. Namrata Braden MD Other Provider Active St art: September 17, 2024 End: October 01, 2024 Team Status: Inactive Member Role/Relationship Status Dates Dr. Nadine Salamanca MD Primary Care Provider Active Start: October 08, 2024 End: October 08, 2024 Dr. Nadine Salamanca MD Referring Provider Active Start: October 08, 2024 End: October 08, 2024 Ludivina CAMPOS PA Attending Provider Active Start: October 08, 2024 End: October 08, 2024 Team Status: Active Member Role/Relationship Status Dates Dr. Nadine Salamanca MD Primary Care Provider Active Start: October 08, 2024 Ludivina CAMPOS PA Attending Provider Active Start: October 08, 2024 Ludivina CAMPOS PA Referring Provider Active Start: October 08, 2024 Team Status: Inactive Member Role/Relationship Status Dates Dr. Nadine Salamanca MD Primary Care Provider Active Start: June 25, 2024 End: July 02, 2024 Dr. Aaron Matthews MD Attending Provider Active Start: June 25, 2024 End: July 02, 2024 Dr. Aaron Matthews MD Referring Provider Active Start: June 25, 2024 End: July 02, 2024 Team Status: Inactive Member Role/Relationship Status Dates Dr. Nadine Salamanca MD Primary Care Provider Active Start: June 25, 2024 End: June 25, 2024 Dr. Aaron Matthews MD Attending Provider Active Start: June 25, 2024 End: June 25, 2024 Dr. Aaron Matthews MD Referring Provider Active Start: June 25, 2024 End: June 25, 2024 Team Status: Inactive Member Role/Relationship Status Dates Dr. Nadine Salamanca MD Primary Care Provider Active Start: July 23, 2024 End: August 01, 2024 Dr. Aaron Matthews MD Attending Provider Active Start: July 23, 2024 End: August 01, 2024 Dr. Aaron Matthews MD Referring Provider Active Start: July 23, 2024 End: August 01, 2024 Dr. Namrata Braden MD Other Provider Active St art: July 23, 2024 End: August 01, 2024 Team Status: Inactive Member Role/Relationship Status Dates Dr. Nadine Salamanca MD Primary Care Provider Active Start: August 02, 2024 End: August 02, 2024 Dr. Namrata Braden MD Attending Provider Active Start: August 02, 2024 End: August 02, 2024 Dr. Namrata Braden MD Referring Provider Active Start: August 02, 2024 End: August 02, 2024 Team Status: Inactive Member Role/Relationship Status Dates Dr. Nadine Salamanca MD Primary Care Provider Active Start: August 03, 2024 End: August 03, 2024 Dr. Namrata Braden MD Attending Provider Active Start: August 03, 2024 End: August 03, 2024 Dr. Namrata Braden MD Referring Provider Active Start: August 03, 2024 End: August 03, 2024 Team Status: Inactive Member Role/Relationship Status Dates Dr. Nadine Salamanca MD Primary Care Provider Active Start: August 17, 2024 End: September 01, 2024 Dr. Aaron Matthews MD Attending Provider Active Start: August 17, 2024 End: September 01, 2024 Dr. Aaron Matthews MD Referring Provider Active Start: August 17, 2024 End: September 01, 2024 Dr. Namrata Braden MD Other Provider Active St art: August 17, 2024 End: September 01, 2024 Team Status: Inactive Member Role/Relationship Status Dates Dr. Nadine Salamanca MD Primary Care Provider Active Start: September 17, 2024 End: October 01, 2024 Dr. Aaron Matthews MD Attending Provider Active Start: September 17, 2024 End: October 01, 2024 Dr. Aaron Matthews MD Referring Provider Active Start: September 17, 2024 End: October 01, 2024 Dr. Namrata Braden MD Other Provider Active St art: September 17, 2024 End: October 01, 2024 Team Status: Inactive Member Role/Relationship Status Dates Dr. Nadine Salamanca MD Primary Care Provider Active Start: October 08, 2024 End: October 08, 2024 Dr. Nadine Salamanca MD Referring Provider Active Start: October 08, 2024 End: October 08, 2024 Ludivina CAMPOS, PA Attending Provider Active Start: October 08, 2024 End: October 08, 2024 Team Status: Inactive Member Role/Relationship Status Dates Dr. Nadine Salamanca MD Primary Care Provider Active Start: October 08, 2024 End: October 08, 2024 Ludivina CAMPOS, PA Attending Provider Active Start: October 08, 2024 End: October 08, 2024 Ludivina Yang PA, PA Referring Provider Active Start: October 08, 2024 End: October 08, 2024 Team Status: Inactive Member Role/Relationship Status Dates Dr. Nadine Salamanca MD Primary Care Provider Active Start: July 23, 2024 End: August 01, 2024 Dr. Aaron Matthews MD Attending Provider Active Start: July 23, 2024 End: August 01, 2024 Dr. Aaron Matthews MD Referring Provider Active Start: July 23, 2024 End: August 01, 2024 Dr. Namrata Braden MD Other Provider Active St art: July 23, 2024 End: August 01, 2024 Team Status: Inactive Member Role/Relationship Status Dates Dr. Nadine Salamanca MD Primary Care Provider Active Start: August 02, 2024 End: August 02, 2024 Dr. Namrata Braden MD Attending Provider Active Start: August 02, 2024 End: August 02, 2024 Dr. Namrata Braden MD Referring Provider Active Start: August 02, 2024 End: August 02, 2024 Team Status: Inactive Member Role/Relationship Status Dates Dr. Nadine Salamanca MD Primary Care Provider Active Start: August 03, 2024 End: August 03, 2024 Dr. Namrata Braden MD Attending Provider Active Start: August 03, 2024 End: August 03, 2024 Dr. Namrata Braden MD Referring Provider Active Start: August 03, 2024 End: August 03, 2024 Team Status: Inactive Member Role/Relationship Status Dates Dr. Nadine Salamanca MD Primary Care Provider Active Start: August 17, 2024 End: September 01, 2024 Dr. Aaron Matthews MD Attending Provider Active Start: August 17, 2024 End: September 01, 2024 Dr. Aaron Matthews MD Referring Provider Active Start: August 17, 2024 End: September 01, 2024 Dr. Namrata Braden MD Other Provider Active St art: August 17, 2024 End: September 01, 2024 Team Status: Inactive Member Role/Relationship Status Dates Dr. Nadine Salamanca MD Primary Care Provider Active Start: September 17, 2024 End: October 01, 2024 Dr. Aaron Matthews MD Attending Provider Active Start: September 17, 2024 End: October 01, 2024 Dr. Aaron Matthews MD Referring Provider Active Start: September 17, 2024 End: October 01, 2024 Dr. Namrata Braden MD Other Provider Active St art: September 17, 2024 End: October 01, 2024 Team Status: Inactive Member Role/Relationship Status Dates Dr. Nadine Salamanca MD Primary Care Provider Active Start: October 08, 2024 End: October 08, 2024 Dr. Nadine Salamanca MD Referring Provider Active Start: October 08, 2024 End: October 08, 2024 Ludivina CAMPOS PA Attending Provider Active Start: October 08, 2024 End: October 08, 2024 Team Status: Inactive Member Role/Relationship Status Dates Dr. Nadine Salamanca MD Primary Care Provider Active Start: October 08, 2024 End: October 08, 2024 Ludivina CAMPOS PA Attending Provider Active Start: October 08, 2024 End: October 08, 2024 Ludivina CAMPOS PA Referring Provider Active Start: October 08, 2024 End: October 08, 2024 Team Status: Inactive Member Role/Relationship Status Dates Dr. Nadine Salamanca MD Primary Care Provider Active Start: October 15, 2024 End: November 01, 2024 Dr. Aaron Matthews MD Attending Provider Active Start: October 15, 2024 End: November 01, 2024 Dr. Aaron Matthews MD Referring Provider Active Start: October 15, 2024 End: November 01, 2024 Dr. Namrata Braden MD Other Provider Active St art: October 15, 2024 End: November 01, 2024 Team Status: Inactive Member Role/Relationship Status Dates Dr. Nadine Salamanca MD Primary Care Provider Active Start: November 05, 2024 End: November 05, 2024 Dr. Namrata Braden MD Attending Provider Active Start: November 05, 2024 End: November 05, 2024 Dr. Namrata Braden MD Referring Provider Active Start: November 05, 2024 End: November 05, 2024 Team Status: Active Member Role/Relationship Status Dates Dr. Nadine Salamanca MD Primary Care Provider Active Start: November 12, 2024 Dr. Aaron Matthews MD Attending Provider Active Start: November 12, 2024 Dr. Aaron Matthews MD Referring Provider Active Start: November 12, 2024 Dr. Namrata Braden MD Other Provider Active St art: November 12, 2024 Team Status: Inactive Member Role/Relationship Status Dates Dr. Nadine Salamanca MD Primary Care Provider Active Start: August 17, 2024 End: September 01, 2024 Dr. Aaron Matthews MD Attending Provider Active Start: August 17, 2024 End: September 01, 2024 Dr. Aaron Matthews MD Referring Provider Active Start: August 17, 2024 End: September 01, 2024 Dr. Namrata Braden MD Other Provider Active St art: August 17, 2024 End: September 01, 2024 Team Status: Inactive Member Role/Relationship Status Dates Dr. Nadine Salamanca MD Primary Care Provider Active Start: September 17, 2024 End: October 01, 2024 Dr. Aaron Matthews MD Attending Provider Active Start: September 17, 2024 End: October 01, 2024 Dr. Aaron Matthews MD Referring Provider Active Start: September 17, 2024 End: October 01, 2024 Dr. Namrata Braden MD Other Provider Active St art: September 17, 2024 End: October 01, 2024 Team Status: Inactive Member Role/Relationship Status Dates Dr. Nadine Salamanca MD Primary Care Provider Active Start: October 08, 2024 End: October 08, 2024 Dr. Nadine Salamanca MD Referring Provider Active Start: October 08, 2024 End: October 08, 2024 Ludivina Yang PA, PA Attending Provider Active Start: October 08, 2024 End: October 08, 2024 Team Status: Inactive Member Role/Relationship Status Dates Dr. Nadine Salamanca MD Primary Care Provider Active Start: October 08, 2024 End: October 08, 2024 Ludivina Yang PA, PA Attending Provider Active Start: October 08, 2024 End: October 08, 2024 Ludivina Yang PA, PA Referring Provider Active Start: October 08, 2024 End: October 08, 2024 Team Status: Inactive Member Role/Relationship Status Dates Dr. Nadine Salamanca MD Primary Care Provider Active Start: October 15, 2024 End: November 01, 2024 Dr. Aaron Matthews MD Attending Provider Active Start: October 15, 2024 End: November 01, 2024 Dr. Aaron Matthews MD Referring Provider Active Start: October 15, 2024 End: November 01, 2024 Dr. Namrata Braden MD Other Provider Active St art: October 15, 2024 End: November 01, 2024 Team Status: Inactive Member Role/Relationship Status Dates Dr. Nadine Salamanca MD Primary Care Provider Active Start: November 05, 2024 End: November 05, 2024 Dr. Namrata Braden MD Attending Provider Active Start: November 05, 2024 End: November 05, 2024 Dr. Namrata Braden MD Referring Provider Active Start: November 05, 2024 End: November 05, 2024 Team Status: Inactive Member Role/Relationship Status Dates Dr. Nadine Salamanca MD Primary Care Provider Active Start: November 12, 2024 End: November 12, 2024 Dr. Aaron Matthews MD Attending Provider Active Start: November 12, 2024 End: November 12, 2024 Dr. Aaron Matthews MD Referring Provider Active Start: November 12, 2024 End: November 12, 2024 Dr. Namrata Braden MD Other Provider Active St art: November 12, 2024 End: November 12, 2024 Team Status: Inactive Member Role/Relationship Status Dates Dr. Nadine Salamanca MD Primary Care Provider Active Start: September 17, 2024 End: October 01, 2024 Dr. Aaron Matthews MD Attending Provider Active Start: September 17, 2024 End: October 01, 2024 Dr. Aaron Matthews MD Referring Provider Active Start: September 17, 2024 End: October 01, 2024 Dr. Namrata Braden MD Other Provider Active St art: September 17, 2024 End: October 01, 2024 Team Status: Inactive Member Role/Relationship Status Dates Dr. Nadine Salamanca MD Primary Care Provider Active Start: October 08, 2024 End: October 08, 2024 Dr. Nadine Salamanca MD Referring Provider Active Start: October 08, 2024 End: October 08, 2024 Ludivina CAMPOS PA Attending Provider Active Start: October 08, 2024 End: October 08, 2024 Team Status: Inactive Member Role/Relationship Status Dates Dr. Nadine Salamanca MD Primary Care Provider Active Start: October 08, 2024 End: October 08, 2024 Ludivina CAMPOS PA Attending Provider Active Start: October 08, 2024 End: October 08, 2024 Ludivina CAMPOS PA Referring Provider Active Start: October 08, 2024 End: October 08, 2024 Team Status: Inactive Member Role/Relationship Status Dates Dr. Nadine Salamanca MD Primary Care Provider Active Start: October 15, 2024 End: November 01, 2024 Dr. Aaron Matthews MD Attending Provider Active Start: October 15, 2024 End: November 01, 2024 Dr. Aaron Matthews MD Referring Provider Active Start: October 15, 2024 End: November 01, 2024 Dr. Namrata Braden MD Other Provider Active St art: October 15, 2024 End: November 01, 2024 Team Status: Inactive Member Role/Relationship Status Dates Dr. Nadine Salamanca MD Primary Care Provider Active Start: November 05, 2024 End: November 05, 2024 Dr. Namrata Braden MD Attending Provider Active Start: November 05, 2024 End: November 05, 2024 Dr. Namrata Braden MD Referring Provider Active Start: November 05, 2024 End: November 05, 2024 Team Status: Inactive Member Role/Relationship Status Dates Dr. Nadine Salamanca MD Primary Care Provider Active Start: November 12, 2024 End: November 12, 2024 Dr. Aaron Matthews MD Attending Provider Active Start: November 12, 2024 End: November 12, 2024 Dr. Aaron Matthews MD Referring Provider Active Start: November 12, 2024 End: November 12, 2024 Dr. Namrata Braden MD Other Provider Active St art: November 12, 2024 End: November 12, 2024 Team Status: Inactive Member Role/Relationship Status Dates Dr. Nadine Salamanca MD Primary Care Provider Active Start: December 04, 2024 End: December 04, 2024 Dr. Aaron Matthews MD Attending Provider Active Start: December 04, 2024 End: December 04, 2024 FOR RECORDS PERTAINING TO PATIENTS WHO ARE [...] BE BASED ON THE PRIMARY CLINICAL RECORDS. [employer] provides no warranty or guarantee of the accuracy or completeness of information in this document.
== END | disposition home or self-care (01) ==
LOC: VSLAB 15:32
PROVIDERS: Internal Medicine Rheumatology; PCP Internal Medicine; Referring Provider Family Medicine; Visit Provider Family Medicine
DX: M06.09 Rheumatoid arthritis without rheumatoid factor, multiple sites (principal); Z79.899 Other long term (current) drug therapy
CPT/HCPCS: 36415; 80053; 85025; 85652; 86140

== ENCOUNTER 2025-02-24 23:49 | Day surgery (SDC) | payer OTHER, SELFPAY ==
[2025-02-24 23:50] VITALS: BP 185/81; PULSE 104; RESP 25; TEMP 36.2; O2SAT 98; BMI 40.8
[2025-02-25] VITALS (10 sets, daily range): BP systolic 123–167; BP diastolic 53–111; PULSE 73–87; RESP 16–75; TEMP 36.4–36.6; O2SAT 92–99
--- NOTE | 2025-02-25 00:11 | EKG12_ITS ---
Test Reason : N/V Blood Pressure : */* mmHG Vent. Rate : 80 BPM Atrial Rate : 80 BPM P-R Int : 156 ms QRS Dur : 74 ms QT Int : 404 ms P-R-T Axes : 42 -12 -3 degrees QTcB Int : 465 ms Normal sinus rhythm with sinus arrhythmia Minimal voltage criteria for LVH, may be normal variant ( R in aVL ) Borderline ECG Confirmed by KAILYN ZIMMERMAN, KAT ([id number]), newspaper photo editor BETTY DAY ([id number]) on 02/25/2025 1:11:19 PM Referred By: Jessica Rashid Confirmed By: KAT AVINA MD
--- OUTSIDE RECORDS SUMMARY | 2025-02-25 00:25 | XMS RPT_ITS | CCD ---
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 Aaron Elama on 12-04-2024 MCH (RBC) [Entitic mass] 29.5 pg 27.0-32.0 [facility] Mean corpuscular hemoglobin concentration (MCHC) determinationOrdered By: Aaron Cassie on 12-04-2024 MCHC (RBC) [Mass/Vol] 32.8 g/dL 32-36 [facility] Mean platelet volume determi nationOrdered By: Aaron Cassie on 12-04-2024 Platelet mean volume (Bld) [Entitic vol] 10.2 fL 6.2-12.0 [facility] Microalb:Creat Ratio,Random URon 12-04-2024 MALB:CREAT 30.0 mg/g CRE Normal <30 mg/g CRE [facility] Comment on above: Performed By: #### L 500.3400 #### [facility] [address] [place], [address] MICROALBUMIN,UR 14.1 mg/L Normal <20 mg/L [facility] Comment on above: Performed By: #### L 500.3400 #### [facility] [address] [place], [address] PTHINon 12-04-2024 PTH 46 pg/mL Normal 11-61 [facility] Comment on above: Performed By: #### L 3400.8000 #### [facility] [address] [place], [address] Phosphoruson 12-04-2024 Phosphate [Mass/Vol] 4.4 mg/dL Normal 2.7-4.5 [facility] Comment on above: Performed By: #### L 500.3400 #### [facility] [address] [place], [address] Platelet countOrdered By: Talon peslowell Matthews on 12-04-2024 Platelets (Bld) [#/Vol] 246 10*3/uL 150-450 [facility] Potassium measurement (mass/ volume)Ordered By: Aaron Matthews on 12-04-2024 Potassium (Unsp spec) [Mass/Vol] 4.6 mmol/L 3.3-5.1 [facility] Protein+Creatinine Ratio,Uri neon 12-04-2024 PROT:CRE RATIO UNABLE TO CALCULATE Normal 0-200 [facility] Comment on above: Performed By: #### L 500.3400 #### [facility] [address] [place], [address] PROTEIN,UR.RAN. < 6.0 Normal 0.0-12.0 [facility] Comment on above: Performed By: #### L 500.3400 #### [facility] [address] [place], [address] UR CREAT 47.00 mg/dL Normal 28.00-217.0 0 [facility] Comment on above: Performed By: #### L 500.3400 #### [facility] [address] [place], [address] RBC Auto (Bld) [#/Vol]Ordere d By: Aaron Matthews on 12-04-2024 RBC (Bld) [#/Vol] 4.55 10*6/uL 4.2-5.4 [facility] Random urine creatinine paty urement (mass/volume)Ordered By: Aaron Matthews on 12-04-2024 Creatinine Unsp time (U) [Mass/Vol] 47.00 mg/dL 28.00-217.0 0 [facility] Serum creatinine measurement (mass/volume)Ordered By: Aaron Matthews on 12-04-2024 Creatinine [Mass/Vol] 1.43 mg/dL High 0.70-1.20 [facility] Serum globulin measurementOr dered By: Aaron Matthews on 12-04-2024 Globulin (S) [Mass/Vol] 2.5 g/dL 2.2-4.2 [facility] Serum glucose measurement (m ass/volume)Ordered By: [facility] Cassie on 12-04-2024 Glucose [Mass/Vol] 98 mg/dL 70-99 [facility] Serum or plasma alanine peralta otransferase (ALT) measurementOrdered By: [facility] on 12-04-2024 ALT [Catalytic activity/Vol] 40 U/L High <35 [facility] Serum or plasma albumin paty urement (mass/volume)Ordered By: [facility] Cassie on 12-04-2024 Albumin [Mass/Vol] 4.5 g/dL 3.5-5.0 [facility] Serum or plasma alkaline elvia sphatase [facility]Ordered [facility]: [facility] ALP [Catalytic activity/Vol] 88 U/L 35-104 [facility] Serum or plasma calcium paty urement (mass/volume)Ordered By: [facility] Cassie on 12-04-2024 Calcium [Mass/Vol] 9.7 mg/dL 7.6-11.0 [facility] Serum or plasma urea nitroge n measurement (mass/volume)Ordered By: [facility] on 12-04-2024 Urea nitrogen [Mass/Vol] 20 mg/dL High 4-19 [facility] Sodium levelOrdered By: [facility] on 12-04-2024 Sodium [Moles/Vol] 141 mmol/L 133-145 [facility] Total proteinOrdered By: [facility] Cassie on 12-04-2024 Protein [Mass/Vol] 6.9 g/dL 5.9-8.4 [facility] Urine albumin measurement wi detection limit of 20 mg/L or less (mass/volume)Ordered By: [facility] on 12-04-2024 Albumin DL <= 20 mg/L (U) [Mass/Vol] 14.1 mg/L <20 mg/L [facility] Urine protein measurement (m ass/volume)Ordered By: [facility] Cassie on 12-04-2024 Protein (U) [Mass/Vol] mg/dL 0.0-12.0 [facility] Urine protein/creatinine mas s ratioOrdered By: [facility] Cassie on 12-04-2024 Protein/Creatinine (U) [Mass ratio] UNABLE TO CALCULATE mg/g CRE 0-200 [facility] Vitamin D,25 Hydroxyon 12-04 Vitamin D 25-OH 40.1 ng/mL Normal 30-100 [facility] Comment on above: Result Comment: Monika min D Status Deficiency: <20 ng/mL (50nmol/L) Insufficiency: 20-30 ng/mL (50-75 nmol/L) Sufficiency: 30-100 ng/mL (75-250 nmol/L) Toxicity: >100 ng/mL (>250 nmol/L) Performed By: #### L 500.3400 #### [facility] [address] [place], [place], [id number] White blood cell (WBC) count Ordered By: Aaron Matthews on 12-04-2024 WBC (Bld) [#/Vol] 9.9 10*3/uL 4.4-11.0 [facility] Bilirubin directOrdered By: Aaron Matthews on 11-12-2024 Bilirubin.direct [Mass/Vol] 0.18 mg/dL 0.00-0.30 [facility] Bilirubin, totalOrdered By: Aaron Matthews on 11-12-2024 Bilirubin [Mass/Vol] 0.38 mg/dL 0.00-1.30 [facility] - Chemistry and C hemistry - challengeOrdered By: Aaron Matthews on 11-12-2024 AST [Catalytic activity/Vol] 23 U/L <32 [facility] Liver Profileon 11-12-2024 Albumin [Mass/Vol] 4.3 g/dL Normal 3.5-5.0 [facility] Comment on above: Performed By: #### L 500.3400 #### [facility] [address] [place], [place], [id number] ALK PHOS 87 U/L Normal 35-104 [facility] Comment on above: Performed By: #### L 500.3400 #### [facility] [address] [place], [place], [id number] (134) ALT [Catalytic activity/Vol] 28 U/L Normal <=34 [facility] Comment on above: Performed By: #### L 500.3400 #### [facility] [address] [place], [address] AST [Catalytic activity/Vol] 23 U/L Normal <=31 [facility] Comment on above: Performed By: #### L 500.3400 #### [facility] [address] [place], [address] Bilirubin [Mass/Vol] 0.38 mg/dL Normal 0.00-1.30 [facility] Comment on above: Performed By: #### L 500.3400 #### [facility] [address] [place], [address] Bilirubin.direct [Mass/Vol] 0.18 mg/dL Normal 0.00-0.30 [facility] Comment on above: Performed By: #### L 500.3400 #### [facility] [address] [place], [address] Globulin (S) [Mass/Vol] 2.5 g/dL Normal 2.2-4.2 [facility] Comment on above: Performed By: #### L 500.3400 #### [facility] [address] [place], [address] T PROT 6.8 g/dL Normal 5.9-8.4 [facility] Comment on above: Performed By: #### L 500.3400 #### [facility] [address] [place], [address] Serum globulin measurementOr dered By: Aaron Matthews on 11-12-2024 Globulin (S) [Mass/Vol] 2.5 g/dL 2.2-4.2 [facility] Serum or plasma alanine peralta otransferase (ALT) measurementOrdered By: Aaron Matthews on 11-12-2024 ALT [Catalytic activity/Vol] 28 U/L <35 [facility] Serum or plasma albumin paty urement (mass/volume)Ordered By: Aaron Matthews on 11-12-2024 Albumin [Mass/Vol] 4.3 g/dL 3.5-5.0 [facility] Serum or plasma alkaline elvia sphatase measurementOrdered By: Aaron Matthews on 11-12-2024 ALP [Catalytic activity/Vol] 87 U/L 35-104 [facility]Or[facility]: [facility] 11-12-2024 Protein [Mass/Vol] 6.8 g/dL 5.9-8.4 [facility] Absolute lymphocyte countOrd ered By: Namrata Braden on 11-05-2024 Lymphocytes Auto (Unsp spec) [#/Vol] 3.30 10*3/uL 0.83-4.51 [facility] Absolute neutrophil countOrd ered By: Namrata Braden on 11-05-2024 Neutrophils (Bld) [#/Vol] 4.1 10*3/uL 2.0-7.7 [facility] Anion gap in Serum or Plasma Ordered By: Namrata Braden on 11-05-2024 Anion gap [Moles/Vol] 12 mmol/L 5-15 [facility] Automated lymphocyte count a s percentage of total leukocytesOrdered By: Namrata Braden on 11-05-2024 Lymphocytes/100 WBC Auto (Unsp spec) 35.0 % 19-41 [facility] BUN/creatinine ratioOrdered By: Namrata Braden on 11-05-2024 Urea nitrogen/Creatinine [Mass ratio] 12.3 mg/mg 10-20 [facility] Basophil percentageOrdered B y: Namrata Braden on 11-05-2024 Basophils/100 WBC (Bld) 1.3 % High 0-1 [facility] Bilirubin, totalOrdered By: Namrata Braden on 11-05-2024 Bilirubin [Mass/Vol] 0.41 mg/dL 0.00-1.30 [facility] CBC W/Diff, Automatedon Absolute Lymph 3.30 X10 3/uL Normal 0.83-4.51 [facility] Comment on above: Performed By: #### L 500.4050, L501.4700, L100.0100 #### [facility] [address] [place], [address] Absolute Neut 4.1 X10 3/uL Normal 2.0-7.7 [facility] Comment on above: Performed By: #### L 500.4050, L501.4700, L100.0100 #### [facility] [address] [place], [address] Basophils/100 WBC (Bld) 1.3 % High 0-1 [facility] Comment on above: Performed By: #### L 500.4050, L501.4700, L100.0100 #### [facility] [address] [place], [address] Eosinophils/100 WBC (Bld) 8.7 % High 0-5 [facility] Comment on above: Performed By: #### L 500.4050, L501.4700, L100.0100 #### [facility] [address] [place], [address] Erythrocyte distribution width (RBC) [Ratio] 13.5 % Normal 11.6-14.6 [facility] Comment on above: Performed By: #### L 500.4050, L501.4700, L100.0100 #### [facility] [address] [place], [address] Hematocrit (Bld) [Volume fraction] 43.6 % Normal 37-47 [facility] Comment on above: Performed By: #### L 500.4050, L501.4700, L100.0100 #### [facility] [address] [place], [address] Hemoglobin (Bld) [Mass/Vol] 13.9 g/dL Normal 12.0-15.0 [facility] Comment on above: Performed By: #### L 500.4050, L501.4700, L100.0100 #### [facility] [address] [place], [address] IG% 0.300 Normal 0.0-0.9 [facility] Comment on above: Result Comment: IG% - Immature Granulocytes (promyelocytes, myelocytes and metamyelocytes) > 1% indicates that a LEFT SHIFT is Present. Performed By: #### L 500.4050, L501.4700, L100.0100 #### [facility] [address] [place], [address] Lymphocytes/100 WBC (Bld) 35.0 % Normal 19-41 [facility] Comment on above: Performed By: #### L 500.4050, L501.4700, L100.0100 #### [facility] [address] [place], [address] MCH (RBC) [Entitic mass] 29.0 pg Normal 27.0-32.0 [facility] Comment on above: Performed By: #### L 500.4050, L501.4700, L100.0100 #### [facility] [address] [place], [address] MCHC (RBC) [Mass/Vol] 31.9 g/dL Low 32-36 [facility] Comment on above: Performed By: #### L 500.4050, L501.4700, L100.0100 #### [facility] [address] [place], [address] MCV (RBC) [Entitic vol] 91.0 fL Normal 81-99 [facility] Comment on above: Performed By: #### L 500.4050, L501.4700, L100.0100 #### [facility] [address] [place], [address] Monocytes/100 WBC (Bld) 11.0 % High 0-10 [facility] Comment on above: Performed By: #### L 500.4050, L501.4700, L100.0100 #### [facility] [address] [place], [address] Neutrophils/100 WBC (Bld) 43.7 % Low 47-70 [facility] Comment on above: Performed By: #### L 500.4050, L501.4700, L100.0100 #### [facility] [address] [place], [address] Nucleated RBC (Bld) [#/Vol] 0 10*3/uL Normal 0-5 [facility] Comment on above: Performed By: #### L 500.4050, L501.4700, L100.0100 #### [facility] [address] [place], [address] Platelet mean volume (Bld) [Entitic vol] 10.1 fL Normal 6.2-12.0 [facility] Comment on above: Performed By: #### L 500.4050, L501.4700, L100.0100 #### [facility] [address] [place], [address] Platelets (Bld) [#/Vol] 245 10*3/uL Normal 150-450 [facility] Comment on above: Performed By: #### L 500.4050, L501.4700, L100.0100 #### [facility] [address] [place], [address] RBC (Bld) [#/Vol] 4.79 10*6/uL Normal 4.2-5.4 [facility] Comment on above: Performed By: #### L 500.4050, L501.4700, L100.0100 #### [facility] [address] [place], [address] RDW SD 45.2 fl High 35.1-43.9 [facility] Comment on above: Performed By: #### L 500.4050, L501.4700, L100.0100 #### [facility] [address] [place], [address] WBC (Bld) [#/Vol] 9.4 10*3/uL Normal 4.4-11.0 [facility] Comment on above: Performed By: #### L 500.4050, L501.4700, L100.0100 #### [facility] [address] [place], [address] Carbon dioxide, total [Moles /volume] in Central venous bloodOrdered By: Namrata Braden on 11-05-2024 CO2 [Moles/Vol] 25.8 mmol/L 21.0-32.0 [facility] Chloride assayOrdered By: Beth Braden on 11-05-2024 Chloride [Moles/Vol] 106 mmol/L 98-108 [facility] Comprehensive Metabolic Prof ilon 11-05-2024 Albumin [Mass/Vol] 4.3 g/dL Normal 3.5-5.0 [facility] Comment on above: Performed By: #### L 500.4050, L501.4700, L100.0100 #### [facility] [address] [place], [address] Albumin/Globulin [Mass ratio] 1.9 {ratio} Normal 0.9-2.4 [facility] Comment on above: Performed By: #### L 500.4050, L501.4700, L100.0100 #### [facility] [address] [place], [address] ALK PHOS 83 U/L Normal 35-104 [facility] Comment on above: Performed By: #### L 500.4050, L501.4700, L100.0100 #### [facility] [address] [place], [address] ALT [Catalytic activity/Vol] 30 U/L Normal <=34 [facility] Comment on above: Performed By: #### L 500.4050, L501.4700, L100.0100 #### [facility] [address] [place], [address] AST [Catalytic activity/Vol] 26 U/L Normal <=31 [facility] Comment on above: Performed By: #### L 500.4050, L501.4700, L100.0100 #### [facility] [address] [place], [address] Bilirubin [Mass/Vol] 0.41 mg/dL Normal 0.00-1.30 [facility] Comment on above: Performed By: #### L 500.4050, L501.4700, L100.0100 #### [facility] [address] [place], [address] BUN/CRE 12.3 RATIO Normal 10-20 [facility] Comment on above: Performed By: #### L 500.4050, L501.4700, L100.0100 #### [facility] [address] [place], [address] Calcium [Mass/Vol] 9.3 mg/dL Normal 7.6-11.0 [facility] Comment on above: Performed By: #### L 500.4050, L501.4700, L100.0100 #### [facility] [address] [place], [address] Chloride [Moles/Vol] 106 mmol/L Normal 98-108 [facility] Comment on above: Performed By: #### L 500.4050, L501.4700, L100.0100 #### [facility] [address] [place], [address] CO2 [Moles/Vol] 25.8 mmol/L Normal 21.0-32.0 [facility] Comment on above: Performed By: #### L 500.4050, L501.4700, L100.0100 #### [facility] [address] [place], [address] Creatinine [Mass/Vol] 1.32 mg/dL High 0.70-1.20 [facility] Comment on above: Performed By: #### L 500.4050, L501.4700, L100.0100 #### [facility] [address] [place], [address] GAP 12 Normal 5-15 [facility] Comment on above: Performed By: #### L 500.4050, L501.4700, L100.0100 #### [facility] [address] [place], [address] GFR/1.73 sq M.predicted among non-blacks MDRD (S/P/Bld) [Vol rate/Area] 47 mL/min/{1.73_m2} Low >60 [facility] Comment on above: Result Comment: mL/m in/1.73m2 CKD-EPI Creatinine Equation (2020) Performed By: #### L 500.4050, L501.4700, L100.0100 #### [facility] [address] [place], [address] Globulin (S) [Mass/Vol] 2.3 g/dL Normal 2.2-4.2 [facility] Comment on above: Performed By: #### L 500.4050, L501.4700, L100.0100 #### [facility] [address] [place], [address] Glucose [Mass/Vol] 81 mg/dL Normal 70-99 [facility] Comment on above: Performed By: #### L 500.4050, L501.4700, L100.0100 #### [facility] [address] [place], [address] Potassium [Moles/Vol] 4.5 mmol/L Normal 3.3-5.1 [facility] Comment on above: Performed By: #### L 500.4050, L501.4700, L100.0100 #### [facility] [address] [place], [address] Sodium [Moles/Vol] 144 mmol/L Normal 133-145 [facility] Comment on above: Performed By: #### L 500.4050, L501.4700, L100.0100 #### [facility] [address] [place], [address] T PROT 6.6 g/dL Normal 5.9-8.4 [facility] Comment on above: Performed By: #### L 500.4050, L501.4700, L100.0100 #### [facility] [address] [place], [address] Urea nitrogen [Mass/Vol] 16 mg/dL Normal 4-19 [facility] Comment on above: Performed By: #### L 500.4050, L501.4700, L100.0100 #### [facility] [address] [place], [address] Eosinophil percentageOrdered By: Namrata Braden on 11-05-2024 Eosinophils/100 WBC (Bld) 8.7 % High 0-5 [facility] Erythrocyte distribution wid th ratioOrdered By: Namrata Braden on 11-05-2024 Erythrocyte distribution width (RBC) [Ratio] 13.5 % 11.6-14.6 [facility] Erythrocyte distribution wid th standard deviationOrdered By: Namrata Braden on 11-05-2024 Erythrocyte distribution width (RBC) [Ratio] 45.2 fl High 35.1-43.9 [facility] Glomerular filtration rate ( GFR) estimation/1.73 sq m using serum, plasma, or whole bOrdered By: Namrata Braden on 11-05-2024 GFR/1.73 sq M.predicted among non-blacks MDRD (S/P/Bld) [Vol rate/Area] 47 mL/min/{1.73_m2} Low >60 [facility] Comment on above: mL/min/1.73m2 CKD-EP I Creatinine Equation (2020) Hematocrit Auto (Bld) [Volum e fraction]Ordered By: Namrata Braden on 11-05-2024 Hematocrit (Bld) [Volume fraction] 43.6 % 37-47 [facility] Hemoglobin measurementOrdere d By: Namrata Braden on 11-05-2024 Hemoglobin (Bld) [Mass/Vol] 13.9 g/dL 12.0-15.0 [facility] Immature granulocytes/100 WB C Auto (Bld)Ordered By: Namrata Braden on 11-05-2024 Immature granulocytes/100 WBC (Bld) 0.300 % 0.0-0.9 [facility] Comment on above: IG% - Immature Granu locytes (promyelocytes, myelocytes and metamyelocytes) > 1% indicates that a LEFT SHIFT is Present. Laboratory - Chemistry and C hemistry - challengeOrdered By: Namrata Braden on 11-05-2024 AST [Catalytic activity/Vol] 26 U/L <32 [facility] MCV (mean corpuscular volume ) determinationOrdered By: Namrata Braden on 11-05-2024 MCV (RBC) [Entitic vol] 91.0 fL 81-99 [facility] Mean corpuscular hemoglobin (MCH) determinationOrdered By: Namrata Braden on 11-05-2024 MCH (RBC) [Entitic mass] 29.0 pg 27.0-32.0 [facility] Mean corpuscular hemoglobin concentration (MCHC) determinationOrdered By: Namrata Braden on 11-05-2024 MCHC (RBC) [Mass/Vol] 31.9 g/dL Low 32-36 [facility] Mean platelet volume determi nationOrdered By: Namrata Braden on 11-05-2024 Platelet mean volume (Bld) [Entitic vol] 10.1 fL 6.2-12.0 [facility] Monocyte percentageOrdered B y: Namrata Braden on 11-05-2024 Monocytes/100 WBC (Bld) 11.0 % High 0-10 [facility] Neutrophil percentageOrdered By: Namrata Braden on 11-05-2024 Neutrophils/100 WBC (Bld) 43.7 % Low 47-70 [facility] Nucleated red blood cell per centageOrdered By: Namrata Braden on 11-05-2024 Nucleated RBC/100 WBC (Bld) [Ratio] 0 % 0-5 [facility] Platelet countOrdered By: Beth Braden on 11-05-2024 Platelets (Bld) [#/Vol] 245 10*3/uL 150-450 [facility] Potassium measurement (mass/ volume)Ordered By: Namrata Braden on 11-05-2024 Potassium (Unsp spec) [Mass/Vol] 4.5 mmol/L 3.3-5.1 [facility] RBC Auto (Bld) [#/Vol]Ordere d By: Namrata Braden on 11-05-2024 RBC (Bld) [#/Vol] 4.79 10*6/uL 4.2-5.4 [facility] Serum creatinine measurement (mass/volume)Ordered By: Namrata Braden on 11-05-2024 Creatinine [Mass/Vol] 1.32 mg/dL High 0.70-1.20 [facility] Serum globulin measurementOr dered By: Namrata Braden on 11-05-2024 Globulin (S) [Mass/Vol] 2.3 g/dL 2.2-4.2 [facility] Serum glucose measurement (m ass/volume)Ordered By: Namrata Braden on 11-05-2024 Glucose [Mass/Vol] 81 mg/dL 70-99 [facility] Serum or plasma alanine peralta otransferase (ALT) measurementOrdered By: Namrata Braden on 11-05-2024 ALT [Catalytic activity/Vol] 30 U/L <35 [facility] Serum or plasma albumin paty urement (mass/volume)Ordered By: Namrata Braden on 11-05-2024 Albumin [Mass/Vol] 4.3 g/dL 3.5-5.0 [facility] Serum or plasma albumin/glob ulin mass ratioOrdered By: Namrata Braden on 11-05-2024 Albumin/Globulin [Mass ratio] 1.9 {ratio} 0.9-2.4 [facility] Serum or plasma alkaline elvia sphatase measurementOrdered By: Namrata Braden on 11-05-2024 ALP [Catalytic activity/Vol] 83 U/L 35-104 [facility] Serum or plasma calcium paty urement (mass/volume)Ordered By: Namrata Braden on 11-05-2024 Calcium [Mass/Vol] 9.3 mg/dL 7.6-11.0 [facility] Serum or plasma urea nitroge n measurement (mass/volume)Ordered By: Namrata Braden on 11-05-2024 Urea nitrogen [Mass/Vol] 16 mg/dL 4-19 [facility] Sodium levelOrdered By: Jose Braden on 11-05-2024 Sodium [Moles/Vol] 144 mmol/L 133-145 [facility] Total proteinOrdered By: Tom Braden on 11-05-2024 Protein [Mass/Vol] 6.6 g/dL 5.9-8.4 [facility] White blood cell (WBC) count Ordered By: Namrata Braden on 11-05-2024 WBC (Bld) [#/Vol] 9.4 10*3/uL 4.4-11.0 [facility] Bilirubin directOrdered By: Aaron Matthews on 10-15-2024 Bilirubin.direct [Mass/Vol] 0.17 mg/dL 0.00-0.30 [facility] Bilirubin, totalOrdered By: Aaron Matthews on 10-15-2024 Bilirubin [Mass/Vol] 0.38 mg/dL 0.00-1.30 [facility] Laboratory - Chemistry and C hemistry - challengeOrdered By: Aaron Matthews on 10-15-2024 AST [Catalytic activity/Vol] 23 U/L <32 [facility] Liver Profileon 10-15-2024 Albumin [Mass/Vol] 4.1 g/dL Normal 3.5-5.0 [facility] Comment on above: Performed By: #### L 520.5794 #### [facility] [place], [address] ALK PHOS 85 U/L Normal 35-104 [facility] Comment on above: Performed By: #### L 500.3400 #### [facility] [address] [place], [address] ALT [Catalytic activity/Vol] 33 U/L Normal <=34 [facility] Comment on above: Performed By: #### L 500.3400 #### [facility] [address] [place], [address] AST [Catalytic activity/Vol] 23 U/L Normal <=31 [facility] Comment on above: Performed By: #### L 500.3400 #### [facility] [address] [place], [address] Bilirubin [Mass/Vol] 0.38 mg/dL Normal 0.00-1.30 [facility] Comment on above: Performed By: #### L 500.3400 #### [facility] [address] [place], [address] Bilirubin.direct [Mass/Vol] 0.17 mg/dL Normal 0.00-0.30 [facility] Comment on above: Performed By: #### L 500.3400 #### [facility] [address] [place], [address] Globulin (S) [Mass/Vol] 2.2 g/dL Normal 2.2-4.2 [facility] Comment on above: Performed By: #### L 500.3400 #### [facility] [address] [place], [address] T PROT 6.3 g/dL Normal 5.9-8.4 [facility] Comment on above: Performed By: #### L 500.3400 #### [facility] [address] [place], [address] Serum globulin measurementOr dered By: Aaron Matthews on 10-15-2024 Globulin (S) [Mass/Vol] 2.2 g/dL 2.2-4.2 [facility] Serum or plasma alanine peralta otransferase (ALT) measurementOrdered [facility]: [facility] ALT [Catalytic activity/Vol] 33 U/L <35 [facility] Serum or plasma albumin paty urement (mass/volume)Ordered By: [facility] on 10-15-2024 Albumin [Mass/Vol] 4.1 g/dL 3.5-5.0 [facility] Serum or plasma alkaline elvia sphatase measurementOrdered By: [facility] on 10-15-2024 ALP [Catalytic activity/Vol] 85 U/L 35-104 [facility] Total proteinOrdered By: [facility] on 10-15-2024 Protein [Mass/Vol] 6.3 g/dL 5.9-8.4 [facility] Knee 4 or More Viewson 10-08 Knee 4 or More Views [facility] [address] [place] [address] Knee 4 or More Views MR#: [id number] Acct: [id number] Name: ISI GENAO Rep #: [id number] : 1965 F 59 From: Andrew Shea DO PCP: Dr. Nadine Salamanca MD Status: REG CLI Study: Knee 4 or More Views Date of Exam: 10/08/24 Exam# [id number] Ordering Dr: Ludivina Yang PROCEDURE: KNEE 4 OR MORE VIEWS 10/08/2024 REASON FOR EXAM: LEFT KNEE PAIN TECHNIQUE: KNEE 4 OR MORE VIEWS COMPARISON: None. FINDINGS: Bones: Normal mineralization. No fracture Joints: Joint cartilage intact. No significant periarticular Effusion: Small Soft tissues: Possible prepatellar soft tissue thickening Other: RAD/Knee 4 or More Views IMPRESSION: No acute osseous process. As above Reading Location: [facility] CC: Dr. 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 [facility] Medical History Obstructive sleep apnea Elevated antinuclear [...] she walks. She has not used any [id number] medication for this. ROS Const Constitutional: Positive for other (ROS negative x 6 except what is described above) Exam Con (more content not included)... Normal [facility] Liver Profileon 09-18-2024 Albumin [Mass/Vol] 4.2 g/dL Normal 3.5-5.0 [facility] Comment on above: Performed By: #### L 500.3400 #### [facility] [address] [place], [address] ALK PHOS 91 U/L Normal 35-104 [facility] Comment on above: Performed By: #### L 500.3400 #### [facility] [address] [place], [address] ALT [Catalytic activity/Vol] 31 U/L Normal <=34 [facility] Comment on above: Performed By: #### L 500.3400 #### [facility] [address] [place], [address] AST [Catalytic activity/Vol] 24 U/L Normal <=31 [facility] Comment on above: Performed By: #### L 500.3400 #### [facility] [address] [place], [address] Bilirubin [Mass/Vol] 0.43 mg/dL Normal 0.00-1.30 [facility] Comment on above: Performed By: #### L 500.3400 #### [facility] [address] [place], [address] Bilirubin.direct [Mass/Vol] 0.18 mg/dL Normal 0.00-0.30 [facility] Comment on above: Performed By: #### L 500.3400 #### [facility] [address] [place], [address] Globulin (S) [Mass/Vol] 2.4 g/dL Normal 2.2-4.2 [facility] Comment on above: Performed By: #### L 500.3400 #### [facility] [address] [place], [address] T PROT 6.6 g/dL Normal 5.9-8.4 [facility] Comment on above: Performed By: #### L 500.3400 #### [facility] [address] [place], [address] Bilirubin directOrdered By: Aaron Matthews on 09-17-2024 Bilirubin.direct [Mass/Vol] 0.18 mg/dL 0.00-0.30 [facility] Bilirubin, totalOrdered By: Aaron Matthews on 09-17-2024 Bilirubin [Mass/Vol] 0.43 mg/dL 0.00-1.30 [facility] - Chemistry and C hemistry - challengeOrdered By: Aaron Matthews on 09-17-2024 AST [Catalytic activity/Vol] 24 U/L <32 [facility] Serum globulin measurementOr dered By: Aaron Matthews on 09-17-2024 Globulin (S) [Mass/Vol] 2.4 g/dL 2.2-4.2 [facility] Serum or plasma alanine peralta otransferase (ALT) measurementOrdered By: Aaron Matthews on 09-17-2024 ALT [Catalytic activity/Vol] 31 U/L <35 [facility] Serum or plasma albumin paty urement (mass/volume)Ordered By: Aaron Matthews on 09-17-2024 Albumin [Mass/Vol] 4.2 g/dL 3.5-5.0 [facility] Serum or plasma alkaline elvia sphatase measurementOrdered By: Aaron Cassie on 09-17-2024 ALP [Catalytic activity/Vol] 91 U/L 35-104 [facility]Ordered [facility]: [facility] on 09-17-2024 Protein [Mass/Vol] 6.6 g/dL 5.9-8.4 [facility] Bilirubin directOrdered By: Aaron Matthews on 08-17-2024 Bilirubin.direct [Mass/Vol] 0.18 mg/dL 0.00-0.30 [facility] Bilirubin, totalOrdered By: Aaron Matthews on 08-17-2024 Bilirubin [Mass/Vol] 0.39 mg/dL 0.00-1.30 [facility] Laboratory - Chemistry and C hemistry - challengeOrdered By: Aaronriddhi Matthews on 08-17-2024 AST [Catalytic activity/Vol] 23 U/L <32 [facility] Liver Profileon 08-17-2024 Albumin [Mass/Vol] 4.4 g/dL Normal 3.5-5.0 [facility] Comment on above: Performed By: #### L 500.3400 #### [facility] [address] [place], [place], [address] ALK PHOS 97 U/L Normal 35-104 [facility] Comment on above: Performed By: #### L 500.3400 #### [facility] [address] [place], [place], [id number] ALT [Catalytic activity/Vol] 29 U/L Normal <=34 [facility] Comment on above: Performed By: #### L 500.3400 #### [facility] [address] [place], [place], [id number] [phone] AST [Catalytic activity/Vol] 23 U/L Normal <=31 [facility] Comment on above: Performed By: #### L 500.3400 #### [facility] [address] [place], [address] Bilirubin [Mass/Vol] 0.39 mg/dL Normal 0.00-1.30 [facility] Comment on above: Performed By: #### L 500.3400 #### [facility] [address] [place], [address] Bilirubin.direct [Mass/Vol] 0.18 mg/dL Normal 0.00-0.30 [facility] Comment on above: Performed By: #### L 500.3400 #### [facility] [address] [place], [address] Globulin (S) [Mass/Vol] 2.5 g/dL Normal 2.2-4.2 [facility] Comment on above: Performed By: #### L 500.3400 #### [facility] [address] [place], [address] T PROT 6.9 g/dL Normal 5.9-8.4 [facility] Comment on above: Performed By: #### L 500.3400 #### [facility] [address] [place], [address] Serum globulin measurementOr dered By: Aaron Matthews on 08-17-2024 Globulin (S) [Mass/Vol] 2.5 g/dL 2.2-4.2 [facility] Serum or plasma alanine peralta otransferase (ALT) measurementOrdered By: Aaron Matthews on 08-17-2024 ALT [Catalytic activity/Vol] 29 U/L <35 [facility] Serum or plasma albumin paty urement (mass/volume)Ordered By: Aaron Matthews on 08-17-2024 Albumin [Mass/Vol] 4.4 g/dL 3.5-5.0 [facility] Serum or plasma alkaline elvia sphatase measurementOrdered By: Aaron Matthews on 08-17-2024 ALP [Catalytic activity/Vol] 97 U/L 35-104 [facility] Total proteinOrdered By: Bridget Matthews on 08-17-2024 Protein [Mass/Vol] 6.9 g/dL 5.9-8.4 [facility] Quantiferon TB-Gold+on 08-04 QFT MITOGEN JUANITA > 10.00 Normal . [facility] Comment on above: Performed By: #### L 3400.8000 #### [facility] [address] [place], [place], [phone] ([phone] QFT NIL VALUE 0.02 IU/mL Normal . [facility] Comment on above: Performed By: #### L 3400.8000 #### [facility] [address] [place], [address] QFT TB GOLD+ Comment Normal . [facility] Comment on above: Result Comment: Franklyn tiFERON-TB [...] test. Performed By: #### L 3400.8000 #### [facility] [address] [place], [place], [phone] ([phone]) QFT TB POS CRIT Negative Normal Negative [facility] Comment on above: Result Comment: No r [...] interferon gamma. Chemiluminescence immunoassay methodology Performed at: [facility] [id number] Meat Passer: Ismael Keith PhD, Phone: [phone] Performed By: #### L 3400.8000 #### [facility] [address] [place], [place], [address] QFT TB1+ AG JUANITA 0.03 IU/mL Normal . [facility] Comment on above: Performed By: #### L 3400.8000 #### [facility] [address] [place], [address] QFT TB2+ AG JUANITA 0.04 IU/mL Normal . [facility] Comment on above: Performed By: #### L 3400.8000 #### [facility] [address] [place], [place], [address] Chest PA and Lateralon 08-03 Chest PA and Lateral [facility] [address] [place], [place] [address] Chest PA and Lateral MR#: [id number] Acct: [id number] Name: ISI GENAO Rep #: [id number] : 1965 F 59 From: Vernon Flood MD PCP: Dr. Nadine Salamanca MD Status: REG CLI Study: Chest PA and Lateral Date of Exam: 08/03/24 Exam# [id number] Ordering Dr: Namrata Braden MD PROCEDURE: CHEST [...] No evidence of acute disease. Reading Location: [id number] CC: Dr. Nadine Salamanca MD; Dr. Namrata Braden MD Ice Cutter: Signed Normal [facility] Anion gap in Serum or Plasma Ordered By: Aaron Matthews on 08-02-2024 Anion gap [Moles/Vol] 13 mmol/L - [facility] BUN/creatinine ratioOrdered By: Aaron Matthews on 08-02-2024 Urea nitrogen/Creatinine [Mass ratio] 14.0 mg/mg - [facility] CBC-Complete Blood Cnt No Di ffon 08-02-2024 Erythrocyte distribution width (RBC) [Ratio] 13.2 % Normal 11.6-14.6 [facility] Comment on above: Performed By: #### L 500.3600, L506.1001, L501.0900, L509.1000, L100.0500 #### [facility] [address] [place], [address] Hematocrit (Bld) [Volume fraction] 44.4 % Normal 37-47 [facility] Comment on above: Performed By: #### L 500.3600, L506.1001, L501.0900, L509.1000, L100.0500 #### [facility] [address] [place], [address] Hemoglobin (Bld) [Mass/Vol] 14.5 g/dL Normal 12.0-15.0 [facility] Comment on above: Performed By: #### L 500.3600, L506.1001, L501.0900, L509.1000, L100.0500 #### [facility] [address] [place], [address] MCH (RBC) [Entitic mass] 28.9 pg Normal 27.0-32.0 [facility] Comment on above: Performed By: #### L 500.3600, L506.1001, L501.0900, L509.1000, L100.0500 #### [facility] [address] [place], [address] MCHC (RBC) [Mass/Vol] 32.7 g/dL Normal 32-36 [facility] Comment on above: Performed By: #### L 500.3600, L506.1001, L501.0900, L509.1000, L100.0500 #### [facility] [address] [place], [address] MCV (RBC) [Entitic vol] 88.6 fL Normal 81-99 [facility] Comment on above: Performed By: #### L 500.3600, L506.1001, L501.0900, L509.1000, L100.0500 #### [facility] [address] [place], [address] Platelet mean volume (Bld) [Entitic vol] 9.7 fL Normal 6.2-12.0 [facility] Comment on above: Performed By: #### L 500.3600, L506.1001, L501.0900, L509.1000, L100.0500 #### [facility] [address] [place], [address] Platelets (Bld) [#/Vol] 279 10*3/uL Normal 150-450 [facility] Comment on above: Performed By: #### L 500.3600, L506.1001, L501.0900, L509.1000, L100.0500 #### [facility] [address] [place], [address] RBC (Bld) [#/Vol] 5.01 10*6/uL Normal 4.2-5.4 [facility] Comment on above: Performed By: #### L 500.3600, L506.1001, L501.0900, L509.1000, L100.0500 #### [facility] [address] [place], [address] RDW SD 42.7 fl Normal 35.1-43.9 [facility] Comment on above: Performed By: #### L 500.3600, L506.1001, L501.0900, L509.1000, L100.0500 #### [facility] [address] [place], [address] WBC (Bld) [#/Vol] 10.8 10*3/uL Normal 4.4-11.0 [facility] Comment on above: Performed By: #### L 500.3600, L506.1001, L501.0900, L509.1000, L100.0500 #### [facility] [address] [place] [place], [address] Carbon dioxide, total [Moles /volume] in Central venous bloodOrdered By: Aaron Matthews on 08-02-2024 CO2 [Moles/Vol] 24.5 mmol/L 21.0-32.0 [facility] Chloride assayOrdered By: [facility] Matthews on 08-02-2024 Chloride [Moles/Vol] 103 mmol/L 98-108 [facility] Erythrocyte distribution wid th ratioOrdered By: [facility] Cassie on 08-02-2024 Erythrocyte distribution width (RBC) [Ratio] 13.2 % 11.6-14.6 [facility] Erythrocyte distribution wid th standard deviationOrdered By: Aaron Cassie on 08-02-2024 Erythrocyte distribution width (RBC) [Ratio] 42.7 fl 35.1-43.9 [facility] Glomerular filtration rate ( GFR) estimation/1.73 sq m using serum, plasma, or whole bOrdered By: Aaron Matthews on 08-02-2024 GFR/1.73 sq M.predicted among non-blacks MDRD (S/P/Bld) [Vol rate/Area] 46 mL/min/{1.73_m2} Low >60 [facility] Comment on above: mL/min/1.73m2 CKD-EP I Creatinine Equation (2020) Hematocrit Auto (Bld) [Volum e fraction]Ordered By: Aaron Matthews on 08-02-2024 Hematocrit (Bld) [Volume fraction] 44.4 % 37-47 [facility] Hemoglobin measurementOrdere d By: Aaron Matthews on 08-02-2024 Hemoglobin (Bld) [Mass/Vol] 14.5 g/dL 12.0-15.0 [facility] MCV (mean corpuscular volume ) determinationOrdered By: Aaronriddhi Matthews on 08-02-2024 MCV (RBC) [Entitic vol] 88.6 fL 81-99 [facility] Mean corpuscular hemoglobin (MCH) determinationOrdered By: [facility] Cassie on 08-02-2024 MCH (RBC) [Entitic mass] 28.9 pg 27.0-32.0 [facility] Mean corpuscular hemoglobin concentration (MCHC) determinationOrdered By: [facility] Cassie on 08-02-2024 MCHC (RBC) [Mass/Vol] 32.7 g/dL 32-36 [facility] Mean platelet volume determi nationOrdered By: [facility] Cassie on 08-02-2024 Platelet mean volume (Bld) [Entitic vol] 9.7 fL 6.2-12.0 [facility] PTHINon 08-02-2024 PTH 47 pg/mL Normal 11-61 [facility] Comment on above: Performed By: #### L 500.3600, L506.1001, L501.0900, L509.1000, L100.0500 #### [facility] [address] [place], [place], [address] Platelet countOrdered By: Talon [facility] Cassie on 08-02-2024 Platelets (Bld) [#/Vol] 279 10*3/uL 150-450 [facility] Potassium measurement (mass/ volume)Ordered By: [facility] Cassie on 08-02-2024 Potassium (Unsp spec) [Mass/Vol] 4.8 mmol/L 3.3-5.1 [facility] Protein+Creatinine Ratio,Uri neon 08-02-2024 PROT:CRE RATIO UNABLE TO CALCULATE Normal 0-200 [facility] Comment on above: Performed By: #### L 3400.8000 #### [facility] [address] [place], [address] PROTEIN,UR.RAN. < 6.0 Normal 0.0-12.0 [facility] Comment on above: Performed By: #### L 3400.8000 #### [facility] [address] [place], [address] UR CREAT 31.20 mg/dL Normal 28.00-217.0 0 [facility] Comment on above: Performed By: #### L 3400.8000 #### [facility] [address] [place], [address] Qualitative QuantiFERON-TB g old in tube testOrdered By: Namrata Braden on 08-02-2024 M. tuberculosis tuberculin stim IFN-g Ql (Bld) 0.03 IU/mL . [facility] RBC Auto (Bld) [#/Vol]Ordere d By: Aaron Matthews on 08-02-2024 RBC (Bld) [#/Vol] 5.01 10*6/uL 4.2-5.4 [facility] Random urine creatinine paty urement (mass/volume)Ordered By: Aaron Matthews on 08-02-2024 Creatinine Unsp time (U) [Mass/Vol] 31.20 mg/dL 28.00-217.0 0 [facility] Renal Profileon 08-02-2024 Albumin [Mass/Vol] 4.5 g/dL Normal 3.5-5.0 [facility] Comment on above: Performed By: #### L 3400.8000 #### [facility] [address] [place], [address] BUN/CRE 14.0 RATIO Normal 10-20 [facility] Comment on above: Performed By: #### L 3400.8000 #### [facility] [address] [place], [address] Calcium [Mass/Vol] 9.7 mg/dL Normal 7.6-11.0 [facility] Comment on above: Performed By: #### L 3400.8000 #### [facility] [address] [place], [address] Chloride [Moles/Vol] 103 mmol/L Normal 98-108 [facility] Comment on above: Performed By: #### L 3400.8000 #### [facility] [address] [place], [address] CO2 [Moles/Vol] 24.5 mmol/L Normal 21.0-32.0 [facility] Comment on above: Performed By: #### L 3400.8000 #### [facility] [address] [place], [address] Creatinine [Mass/Vol] 1.34 mg/dL High 0.70-1.20 [facility] Comment on above: Performed By: #### L 3400.8000 #### [facility] [address] [place], [address] GAP 13 Normal 5-15 [facility] Comment on above: Performed By: #### L 3400.8000 #### [facility] [address] [place], [address] GFR/1.73 sq M.predicted among non-blacks MDRD (S/P/Bld) [Vol rate/Area] 46 mL/min/{1.73_m2} Low >60 [facility] Comment on above: Result Comment: mL/m in/1.73m2 CKD-EPI Creatinine Equation (2020) Performed By: #### L 3400.8000 #### [facility] Laboratory [address] [place], [address] Glucose [Mass/Vol] 80 mg/dL Normal 70-99 [facility] Comment on above: Performed By: #### L 3400.8000 #### [facility] [address] [place], [address] Phosphate [Mass/Vol] 5.0 mg/dL High 2.7-4.5 [facility] Comment on above: Performed By: #### L 3400.8000 #### [facility] [address] [place], [address] Potassium [Moles/Vol] 4.8 mmol/L Normal 3.3-5.1 [facility] Comment on above: Performed By: #### L 3400.8000 #### [facility] [address] [place], [address] Sodium [Moles/Vol] 140 mmol/L Normal 133-145 [facility] Comment on above: Performed By: #### L 3400.8000 #### [facility] [address] [place], [address] Urea nitrogen [Mass/Vol] 19 mg/dL Normal 4-19 [facility] Comment on above: Performed By: #### L 3400.8000 #### [facility] [address] [place], [address] Serum creatinine measurement (mass/volume)Ordered By: Aaron Matthews on 08-02-2024 Creatinine [Mass/Vol] 1.34 mg/dL High 0.70-1.20 [facility] Serum glucose measurement (m ass/volume)Ordered By: Aaron Matthews on 08-02-2024 Glucose [Mass/Vol] 80 mg/dL 70-99 [facility] Serum or plasma albumin paty urement (mass/volume)Ordered By: Aaron Matthews on 08-02-2024 Albumin [Mass/Vol] 4.5 g/dL 3.5-5.0 [facility] Serum or plasma calcium paty urement (mass/volume)Ordered By: Aaron Matthews on 08-02-2024 Calcium [Mass/Vol] 9.7 mg/dL 7.6-11.0 [facility] Serum or plasma urea nitroge n measurement (mass/volume)Ordered By: Aaron Matthews on 08-02-2024 Urea nitrogen [Mass/Vol] 19 mg/dL 4-19 [facility] Sodium levelOrdered By: Leighton Matthews on 08-02-2024 Sodium [Moles/Vol] 140 mmol/L 133-145 [facility] Urine protein measurement (m ass/volume)Ordered By: Aaron Matthews on 08-02-2024 Protein (U) [Mass/Vol] mg/dL 0.0-12.0 [facility] Urine protein/creatinine mas s ratioOrdered By: Aaron Matthews on 08-02-2024 Protein/Creatinine (U) [Mass ratio] UNABLE TO CALCULATE mg/g CRE 0-200 [facility] Vitamin D,25 Hydroxyon 08-02 Vitamin D 25-OH 43.2 ng/mL Normal 30-100 [facility] Comment on above: Result Comment: Monika min D Status Deficiency: <20 ng/mL (50nmol/L) Insufficiency: 20-30 ng/mL (50-75 nmol/L) Sufficiency: 30-100 ng/mL (75-250 nmol/L) Toxicity: >100 ng/mL (>250 nmol/L) Performed By: #### L 3400.8000 #### [facility] [place], [address] White blood cell (WBC) count Ordered By: Aaron Matthews on 08-02-2024 WBC (Bld) [#/Vol] 10.8 10*3/uL 4.4-11.0 [facility] CNOVon 07-31-2024 CNOV Office Visit (OBGYWM) ISI GENAO ([id number]) 1965 F Date Time Provider Department 07/31/24 1:30 PM MOHINI SANCHEZ OBELMIRA During your visit today, we recorded the following information about you: Blood pressure Weight Height 132/84 110.7 kg 1.656 m Mohini Sanchez APRN.CREDIT RATING INSPECTOR 07/31/2024 1:57 PM Signed 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 Isi is a 59 year old who [...] Hypertension Father Coronary Artery Disease Father first [place]/angioplasty age 40's -- MULTPLE interventions other (aortic [...] discussed with the Patient or Patient's Authorized Environmental Planning Engineer. As applicable, any other physician, advance practice provider, medical student, or other health professional student that will be observing or involved in the sensitive examination for educational or training purposes was discussed with the Patient or Authorized Environmental Planning Engineer. The Patient or Authorized Environmental Planning Engineer has agreed to proceed with the sensitive [...] external genitalia normal, normal Bartholin's glands, urethra, D[place] Pal[place] Y's glands, no vulvar lesions, no cervical lesions, [...] ordered for pain with intercourse Mohini Sanchez APRN.CREDIT RATING INSPECTOR Referring Provider: MOHINI SANCHEZ [[id number]] Allergies As of Date: 07/31/2024 Noted Allergy [...] Vaginal atrophy [N95.2] Order(s):ARMANDO SCREENING W MOMO [[id number]] Order #: [id number] FUTURE PAP TEST [[id number]] Order #: [id number]. #:[id number] estradiol (ESTRACE) 0.01 % (0.1 mg/gram) vaginal creamUse 0.5g vaginally at bedtime for 2 weeks then 1-3 time/weeks for maintenance.Disp: 42.5 gRfl: 2 Prescriptions as of 07/31/2024 - hydrOXYzine (more content not included)... Normal [facility] HIGH RISK HUMAN PAPILLOMA EMA (HPV), PCR FOR DETECTION AND GENOTYPINGon 07-31-2024 HPV 16 Ag Ql (Unsp spec) Not detected Normal Not detected [facility] Comment on above: Order Comment: Speci men Type: FLUID SPECIMEN Ordering Facility: [facility] Address: [address] [place] [address] Performed By: #### H PVHRT #### [facility] CLIA [id number] [address] [place] [address] [place] HPV 18 Ag Ql (Unsp spec) Not detected Normal Not detected [facility] Comment on above: Order Comment: Speci men Type: FLUID SPECIMEN Ordering Facility: [facility] Address: [address] [place] [address] Performed By: #### H PVHRT #### [facility] CLIA [id number] [address] [place] [address] [place] HPV 31+33+35+39+45+51+52+56 +58+59+66+68 DNA SIMONA+probe Ql (Cvx) Not detected Normal Not detected [facility] Comment on above: Order Comment: Speci men Type: FLUID SPECIMEN Ordering Facility: [facility] Address: [address] [place] [address] Result Comment: High Risk HPV Other Type includes HPV types 31, 33, 35, 39, 45, 51, 52, 56, 58, 59, 66 and 68. Performed By: #### H PVHRT #### [facility] CLIA [id number] [address] [place] [address] [place] ARMANDO SCREENING W TOMOon 07-31 ARMANDO SCREENING W MOMO * * *Final Report* * * DATE OF EXAM: Jul 31 2024 1:06PM WRW [id number] - ARMANDO SCREENING W MOMO / PROCEDURE REASON: Breast cancer screening by mammogram * * * * Physician Interpretation * * * * RESULT: [facility] [address] [id number] #[id number] - ARMANDO SCREENING W MOMO HISTORY: 59 [...] Carmen Hines M.D. Electronically signed on: 08/01/2024 Ice Cutter: YENNIFER Transcribe Date/Time: Jul 31 2024 12:50P Dictated by: CARMEN HINES MD This examination was interpreted and the report reviewed and electronically signed by: CARMEN HINES MD on Aug 01 2024 10:32AM EST [id number] Normal [facility] PAP TESTon 07-31-2024 ADEQUACY Satisfactory for interpretation. Normal [facility] Comment on above: Order Comment: Speci men Type: FLUID SPECIMEN Ordering Facility: [facility] Address: [address] [place] [address] Performed By: #### L [id number] #### [facility] CLIA [id number] [address] [place] [address] [place] CASE REPORT Normal [facility] Comment on above: Order Comment: Speci men Type: FLUID SPECIMEN Ordering Facility: [facility] Address: [address] [place] [address] Result Comment: Gyne cologic Cytology Report Case: [id number] Authorizing Provider: Mohini Sanchez APRN.CREDIT RATING INSPECTOR Collected: 07/31/2024 01:59 PM Ordering Location: OB/Gynecology Received: 07/31/2024 04:04 PM First Screen: Dephyllis, Fadi, CT, ASCP Rescreen: Menyd Akers, CT, ASCP Specimen: Pap Test, ThinPrep, Cervix Performed By: #### L [id number] #### [facility] CLIA [id number] [address] [place] [address] [place] CLINICAL HISTORY, CYTOLOGY, STRAP CUTTING MACHINE OPERATOR Routine Exam Normal [facility] Comment on above: Order Comment: Speci men Type: FLUID SPECIMEN Ordering Facility: [facility] Address: [address] [place] [address] Result Comment: Post Menopausal Performed By: #### L [id number] #### [facility] CLIA [id number] [address] [place] [address] [place] CYTOLOGY PAP OTHER INTERPRETATION Atrophic specimen. Normal [facility] Comment on above: Order Comment: Speci men Type: FLUID SPECIMEN Ordering Facility: [facility] Address: [address] [place] [address] Performed By: #### L [id number] #### [facility] CLIA [id number] [address] [place] [address] [place] FINAL PERFORMING LAB Normal [facility] Comment on above: Order Comment: Speci men Type: FLUID SPECIMEN Ordering Facility: [facility] Address: [address] [place] [address] Result Comment: Tech nical component, child development professor screening performed at: [facility], [address] [place] [address] CLIA: [id number] Diagnostic interpretation performed at: [facility], [address] [place] [address] CLIA# [id number] Hand Stoner: Juan F Pollack MD Performed By: #### L [id number] #### [facility] CLIA [id number] [address] [place] [address] [place] INTERPRETATION, CYTOLOGY, STRAP CUTTING MACHINE OPERATOR Normal [facility] Comment on above: Order Comment: Speci men Type: FLUID SPECIMEN Ordering Facility: [facility] Address: [address] [place] [address] Result Comment: Nega tive for intraepithelial lesion or malignancy. at 0922 EDT Performed By: #### L [id number] #### [facility] CLIA [id number] [address] [place] [address] [place] PAP DISCLAIMER COMMENT The Pap Smear is a screening test for cervical cancer. False negative results occur with all screening tests, emphasizing the need for rescreening at recommended intervals, and clinical correlation. Normal [facility] Comment on above: Order Comment: Speci men Type: FLUID SPECIMEN Ordering Facility: [facility] Address: [address] [place] [address] Performed By: #### L [id number] #### [facility] CLIA [id number] [address] [place] [address] [place] PAP CLINICAL TRIAL ASSOCIATE COMMENT This specimen has been analyzed by the ThinPrep Imaging System, an automated imaging and review system, which assists the laboratory in evaluating cells on ThinPrep Pap tests. Following automated imaging, selected vivas from every slide are reviewed by a child development professor. Normal [facility] Comment on above: Order Comment: Speci men Type: FLUID SPECIMEN Ordering Facility: [facility] Address: [address] [place] [address] Performed By: #### L [id number] #### [facility] CLIA [id number] [address] [place] [address] [place] Absolute lymphocyte countOrd ered By: Namrata Braden on 07-23-2024 Lymphocytes Auto (Unsp spec) [#/Vol] 2.17 10*3/uL 0.83-4.51 [facility] Absolute neutrophil countOrd ered By: Namrata Braden on 07-23-2024 Neutrophils (Bld) [#/Vol] 7.4 10*3/uL 2.0-7.7 [facility] Anion gap in Serum or Plasma Ordered By: Namrata Braden on 07-23-2024 Anion gap [Moles/Vol] 12 mmol/L 5- [facility] Automated lymphocyte count a s percentage of total leukocytesOrdered By: Namrata Braden on 07-23-2024 Lymphocytes/100 WBC Auto (Unsp spec) 19.5 % - [facility] BUN/creatinine ratioOrdered By: Namrata Braden on 07-23-2024 Urea nitrogen/Creatinine [Mass ratio] 15.4 mg/mg - [facility] Basophil percentageOrdered B y: Namrata Braden on 07-23-2024 Basophils/100 WBC (Bld) 0.7 % 0-1 [facility] Bilirubin directOrdered By: Namrata Braden on 07-23-2024 Bilirubin.direct [Mass/Vol] 0.11 mg/dL 0.00-0.30 [facility] Bilirubin, Directon 07-24-19 25 Bilirubin.direct [Mass/Vol] 0.11 mg/dL Normal 0.00-0.30 [facility] Comment on above: Order Comment: DR. Elyse BARRAZA ORDERED CBCD AND CMPDRJose Eduardo MATTHEWS ORDERED LIVER Performed By: #### L 500.3401 #### [facility] [address] [place], [address] Bilirubin, totalOrdered By: Namrata Braden on 07-23-2024 Bilirubin [Mass/Vol] 0.21 mg/dL 0.00-1.30 [facility] CBC W/Diff, Automatedon 07-04 Absolute Lymph 2.17 X10 3/uL Normal 0.83-4.51 [facility] Comment on above: Order Comment: DR. Elyse BARRAZA ORDERED CBCD AND CMPDR. CASSIE ORDERED LIVER Performed By: #### L 500.3400 #### [facility] [address] [place], [address] Absolute Neut 7.4 X10 3/uL Normal 2.0-7.7 [facility] Comment on above: Order Comment: DR. Elyse BARRAZA ORDERED CBCD AND CMPDR. CASSIE ORDERED LIVER Performed By: #### L 500.3400 #### [facility] [address] [place], [address] Basophils/100 WBC (Bld) 0.7 % Normal 0-1 [facility] Comment on above: Order Comment: DR. Elyse BARRAZA ORDERED CBCD AND CMPDR. CASSIE ORDERED LIVER Performed By: #### L 500.3400 #### [facility] [address] [place], [address] Eosinophils/100 WBC (Bld) 3.5 % Normal 0-5 [facility] Comment on above: Order Comment: DR. Elyse BARRAZA ORDERED CBCD AND CMPDR. CASSIE ORDERED LIVER Performed By: #### L 500.3400 #### [facility] [address] [place], [address] Erythrocyte distribution width (RBC) [Ratio] 13.3 % Normal 11.6-14.6 [facility] Comment on above: Order Comment: DR. Elyse BARRAZA ORDERED CBCD AND CMPDR. CASSIE ORDERED LIVER Performed By: #### L 500.3400 #### [facility] [address] [place], [address] Hematocrit (Bld) [Volume fraction] 40.1 % Normal 37-47 [facility] Comment on above: Order Comment: DR. Elyse BARRAZA ORDERED CBCD AND CMPDR. CASSIE ORDERED LIVER Performed By: #### L 500.3400 #### [facility] [address] [place], [address] Hemoglobin (Bld) [Mass/Vol] 13.3 g/dL Normal 12.0-15.0 [facility] Comment on above: Order Comment: DR. Elyse BARRAZA ORDERED CBCD AND CMPDR. CASSIE ORDERED LIVER Performed By: #### L 500.3400 #### [facility] [address] [place], [address] IG% 0.400 Normal 0.0-0.9 [facility] Comment on above: Order Comment: DR. Elyse BARRAZA ORDERED CBCD AND CMPDR. CASSIE ORDERED LIVER Result Comment: IG% - Immature Granulocytes (promyelocytes, myelocytes and metamyelocytes) > 1% indicates that a LEFT SHIFT is Present. Performed By: #### L 500.3400 #### [facility] [address] [place], [address] Lymphocytes/100 WBC (Bld) 19.5 % Normal 19-41 [facility] Comment on above: Order Comment: DR. Elyse BARRAZA ORDERED CBCD AND CMPDR. CASSIE ORDERED LIVER Performed By: #### L 500.3400 #### [facility] [address] [place], [address] MCH (RBC) [Entitic mass] 28.9 pg Normal 27.0-32.0 [facility] Comment on above: Order Comment: DR. Elyse BARRAZA ORDERED CBCD AND CMPDR. CASSIE ORDERED LIVER Performed By: #### L 500.3400 #### [facility] [address] [place], [address] MCHC (RBC) [Mass/Vol] 33.2 g/dL Normal 32-36 [facility] Comment on above: Order Comment: DR. Elyse BARRAZA ORDERED CBCD AND CMPDR. CASSIE ORDERED LIVER Performed By: #### L 500.3400 #### [facility] [address] [place], [address] MCV (RBC) [Entitic vol] 87.2 fL Normal 81-99 [facility] Comment on above: Order Comment: DR. Elyse BARRAZA ORDERED CBCD AND CMPDR. CASSIE ORDERED LIVER Performed By: #### L 500.3400 #### [facility] [address] [place], [address] Monocytes/100 WBC (Bld) 9.1 % Normal 0-10 [facility] Comment on above: Order Comment: DR. Elyse BARRAZA ORDERED CBCD AND CMPDR. CASSIE ORDERED LIVER Performed By: #### L 500.3400 #### [facility] [address] [place], [address] Neutrophils/100 WBC (Bld) 66.8 % Normal 47-70 [facility] Comment on above: Order Comment: DR. Elyse BARRAZA ORDERED CBCD AND CMPDR. CASSIE ORDERED LIVER Performed By: #### L 500.3400 #### [facility] [address] [place], [address] Nucleated RBC (Bld) [#/Vol] 0 10*3/uL Normal 0-5 [facility] Comment on above: Order Comment: DR. Elyse BARRAZA ORDERED CBCD AND CMPDR. CASSIE ORDERED LIVER Performed By: #### L 500.3400 #### [facility] [address] [place], [address] Platelet mean volume (Bld) [Entitic vol] 9.9 fL Normal 6.2-12.0 [facility] Comment on above: Order Comment: DR. Elyse BARRAZA ORDERED CBCD AND CMPDR. CASSIE ORDERED LIVER Performed By: #### L 500.3400 #### [facility] [address] [place], [address] Platelets (Bld) [#/Vol] 236 10*3/uL Normal 150-450 [facility] Comment on above: Order Comment: DR. Elyse BARRAZA ORDERED CBCD AND CMPDR. CASSIE ORDERED LIVER Performed By: #### L 500.3400 #### [facility] [address] [place], [address] RBC (Bld) [#/Vol] 4.60 10*6/uL Normal 4.2-5.4 [facility] Comment on above: Order Comment: DR. Elyse BARRAZA ORDERED CBCD AND CMPDR. CASSIE ORDERED LIVER Performed By: #### L 500.3400 #### [facility] [address] [place], [address] RDW SD 42.0 fl Normal 35.1-43.9 [facility] Comment on above: Order Comment: DR. Elyse BARRAZA ORDERED CBCD AND CMPDR. CASSIE ORDERED LIVER Performed By: #### L 500.3400 #### [facility] [address] [place], [address] WBC (Bld) [#/Vol] 11.1 10*3/uL High 4.4-11.0 [facility] Comment on above: Order Comment: DR. Elyse BARRAZA ORDERED CBCD AND CMPDR. CASSIE ORDERED LIVER Performed By: #### L 500.3400 #### [facility] [address] [place], [address] Carbon dioxide, total [Moles /volume] in Central venous bloodOrdered By: Namrata Braden on 07-23-2024 CO2 [Moles/Vol] 22.9 mmol/L 21.0-32.0 [facility] Chloride assayOrdered By: Beth Braden on 07-23-2024 Chloride [Moles/Vol] 107 mmol/L 98-108 [facility] Comprehensive Metabolic Prof ilon 07-23-2024 Albumin [Mass/Vol] 4.3 g/dL Normal 3.5-5.0 [facility] Comment on above: Order Comment: DR. Elyse BARRAZA ORDERED CBCD AND CMPDR. CASSIE ORDERED LIVER Performed By: #### L 500.3400 #### [facility] [address] [place], [address] Albumin/Globulin [Mass ratio] 1.7 {ratio} Normal 0.9-2.4 [facility] Comment on above: Order Comment: DR. Elyse BARRAZA ORDERED CBCD AND CMPDR. CASSIE ORDERED LIVER Performed By: #### L 500.3400 #### [facility] [address] [place], [address] ALK PHOS 97 U/L Normal 35-104 [facility] Comment on above: Order Comment: DR. Elyse BARRAZA ORDERED CBCD AND CMPDR. CASSIE ORDERED LIVER Performed By: #### L 500.3400 #### [facility] [address] [place], [address] ALT [Catalytic activity/Vol] 27 U/L Normal <=34 [facility] Comment on above: Order Comment: DR. Elyse BARRAZA ORDERED CBCD AND CMPDR. CASSIE ORDERED LIVER Performed By: #### L 500.3400 #### [facility] [address] [place], [address] AST [Catalytic activity/Vol] 21 U/L Normal <=31 [facility] Comment on above: Order Comment: DR. Elyse BARRAZA ORDERED CBCD AND CMPDR. CASSIE ORDERED LIVER Performed By: #### L 500.3400 #### [facility] [address] [place], [address] Bilirubin [Mass/Vol] 0.21 mg/dL Normal 0.00-1.30 [facility] Comment on above: Order Comment: DR. Elyse BARRAZA ORDERED CBCD AND CMPDR. CASSIE ORDERED LIVER Performed By: #### L 500.3400 #### [facility] [address] [place], [address] BUN/CRE 15.4 RATIO Normal 10-20 [facility] Comment on above: Order Comment: DR. Elyse BARRAZA ORDERED CBCD AND CMPDR. CASSIE ORDERED LIVER Performed By: #### L 500.3400 #### [facility] [address] [place], [address] Calcium [Mass/Vol] 9.6 mg/dL Normal 7.6-11.0 [facility] Comment on above: Order Comment: DR. Elyse BARRAZA ORDERED CBCD AND CMPDR. CASSIE ORDERED LIVER Performed By: #### L 500.3400 #### [facility] [address] [place], [address] Chloride [Moles/Vol] 107 mmol/L Normal 98-108 [facility] Comment on above: Order Comment: DR. Elyse BARRAZA ORDERED CBCD AND CMPDR. CASSIE ORDERED LIVER Performed By: #### L 500.3400 #### [facility] [address] [place], [address] CO2 [Moles/Vol] 22.9 mmol/L Normal 21.0-32.0 [facility] Comment on above: Order Comment: DR. Elyse BARRAZA ORDERED CBCD AND CMPDR. CASSIE ORDERED LIVER Performed By: #### L 500.3400 #### [facility] [address] [place], [address] Creatinine [Mass/Vol] 1.29 mg/dL High 0.70-1.20 [facility] Comment on above: Order Comment: DR. Elyse BARRAZA ORDERED CBCD AND CMPDR. CASSIE ORDERED LIVER Performed By: #### L 500.3400 #### [facility] [address] [place], [address] GAP 12 Normal 5-15 [facility] Comment on above: Order Comment: DR. Elyse BARRAZA ORDERED CBCD AND CMPDR. CASSIE ORDERED LIVER Performed By: #### L 500.3400 #### [facility] [address] [place], [address] GFR/1.73 sq M.predicted among non-blacks MDRD (S/P/Bld) [Vol rate/Area] 48 mL/min/{1.73_m2} Low >60 [facility] Comment on above: Order Comment: DR. Elyse BARRAZA ORDERED CBCD AND CMPDR. CASSIE ORDERED LIVER Result Comment: mL/m in/1.73m2 CKD-EPI Creatinine Equation (2020) Performed By: #### L 500.3400 #### [facility] [address] [place], [address] Globulin (S) [Mass/Vol] 2.5 g/dL Normal 2.2-4.2 [facility] Comment on above: Order Comment: DR. Elyse BARRAZA ORDERED CBCD AND CMPDR. CASSIE ORDERED LIVER Performed By: #### L 500.3400 #### [facility] [address] [place], [address] Glucose [Mass/Vol] 90 mg/dL Normal 70-99 [facility] Comment on above: Order Comment: DR. Elyse BARRAZA ORDERED CBCD AND CMPDR. CASSIE ORDERED LIVER Performed By: #### L 500.3400 #### [facility] [address] [place], [address] Potassium [Moles/Vol] 4.7 mmol/L Normal 3.3-5.1 [facility] Comment on above: Order Comment: DR. Elyse BARRAZA ORDERED CBCD AND CMPDR. CASSIE ORDERED LIVER Performed By: #### L 500.3400 #### [facility] [address] [place], [address] Sodium [Moles/Vol] 141 mmol/L Normal 133-145 [facility] Comment on above: Order Comment: DR. Elyse BARRAZA ORDERED CBCD AND CMPDR. CASSIE ORDERED LIVER Performed By: #### L 500.3400 #### [facility] [address] [place], [address] T PROT 6.9 g/dL Normal 5.9-8.4 [facility] Comment on above: Order Comment: DR. Elyse BARRAZA ORDERED CBCD AND CMPDR. CASSIE ORDERED LIVER Performed By: #### L 500.3400 #### [facility] [address] [place], [place], [address] Urea nitrogen [Mass/Vol] 20 mg/dL High 4-19 [facility] Comment on above: Order Comment: DR. Elyse BARRAZA ORDERED CBCD AND CMPDR. CASSIE ORDERED LIVER Performed By: #### L 500.3400 #### [facility] [address] [place], [address] Eosinophil percentageOrdered By: Namrata Braden on 07-23-2024 Eosinophils/100 WBC (Bld) 3.5 % 0-5 [facility] Erythrocyte distribution wid th ratioOrdered By: Namrata Braden on 07-23-2024 Erythrocyte distribution width (RBC) [Ratio] 13.3 % 11.6-14.6 [facility] Erythrocyte distribution wid th standard deviationOrdered By: Namrata Braden on 07-23-2024 Erythrocyte distribution width (RBC) [Ratio] 42.0 fl 35.1-43.9 [facility] Glomerular filtration rate ( GFR) estimation/1.73 sq m using serum, plasma, or whole bOrdered By: Namrata Braden on 07-23-2024 GFR/1.73 sq M.predicted among non-blacks MDRD (S/P/Bld) [Vol rate/Area] 48 mL/min/{1.73_m2} Low >60 [facility] Comment on above: mL/min/1.73m2 CKD-EP I Creatinine Equation (2020) Hematocrit Auto (Bld) [Volum e fraction]Ordered By: Namrata Braden on 07-23-2024 Hematocrit (Bld) [Volume fraction] 40.1 % 37-47 [facility] Hemoglobin measurementOrdere d By: Namrata Braden on 07-23-2024 Hemoglobin (Bld) [Mass/Vol] 13.3 g/dL 12.0-15.0 [facility] Immature granulocytes/100 WB C Auto (Bld)Ordered By: Namrata Braden on 04-21-2025 Immature granulocytes/100 WBC (Bld) 0.400 % 0.0-0.9 [facility] Comment on above: IG% - Immature Granu locytes (promyelocytes, myelocytes and metamyelocytes) > 1% indicates that a LEFT SHIFT is Present. Laboratory - Chemistry and C hemistry - challengeOrdered By: Namrata Braden on 07-23-2024 AST [Catalytic activity/Vol] 21 U/L <32 [facility] MCV (mean corpuscular volume ) determinationOrdered By: Namrata Braden on 07-23-2024 MCV (RBC) [Entitic vol] 87.2 fL 81-99 [facility] Mean corpuscular hemoglobin (MCH) determinationOrdered By: Namrata Braden on 07-23-2024 MCH (RBC) [Entitic mass] 28.9 pg 27.0-32.0 [facility] Mean corpuscular hemoglobin concentration (MCHC) determinationOrdered By: Namrata Braden on 07-23-2024 MCHC (RBC) [Mass/Vol] 33.2 g/dL 32-36 [facility] Mean platelet volume determi nationOrdered By: Namrata Braden on 07-23-2024 Platelet mean volume (Bld) [Entitic vol] 9.9 fL 6.2-12.0 [facility] Monocyte percentageOrdered B y: Namrata Braden on 07-23-2024 Monocytes/100 WBC (Bld) 9.1 % 0-10 [facility] Neutrophil percentageOrdered By: Namrata Braden on 07-23-2024 Neutrophils/100 WBC (Bld) 66.8 % 47-70 [facility] Nucleated red blood cell per centageOrdered By: Namrata Braden on 07-23-2024 Nucleated RBC/100 WBC (Bld) [Ratio] 0 % 0-5 [facility] Platelet countOrdered By: Beth Braden on 07-23-2024 Platelets (Bld) [#/Vol] 236 10*3/uL 150-450 [facility] Potassium measurement (mass/ volume)Ordered By: Namrata Braden on 07-23-2024 Potassium (Unsp spec) [Mass/Vol] 4.7 mmol/L 3.3-5.1 [facility] RBC Auto (Bld) [#/Vol]Ordere d By: Namrata Braden on 07-23-2024 RBC (Bld) [#/Vol] 4.60 10*6/uL 4.2-5.4 [facility] Serum creatinine measurement (mass/volume)Ordered By: Namrata Braden on 07-23-2024 Creatinine [Mass/Vol] 1.29 mg/dL High 0.70-1.20 [facility] Serum globulin measurementOr dered By: Namrata Braden on 07-23-2024 Globulin (S) [Mass/Vol] 2.5 g/dL 2.2-4.2 [facility] Serum glucose measurement (m ass/volume)Ordered By: Namrata Braden on 07-23-2024 Glucose [Mass/Vol] 90 mg/dL 70-99 [facility] Serum or plasma alanine peralta otransferase (ALT) measurementOrdered By: Namrata Braden on 07-23-2024 ALT [Catalytic activity/Vol] 27 U/L <35 [facility] Serum or plasma albumin paty urement (mass/volume)Ordered By: Namrata Braden on 07-23-2024 Albumin [Mass/Vol] 4.3 g/dL 3.5-5.0 [facility] Serum or plasma albumin/glob ulin mass ratioOrdered By: Namrata Braden on 07-23-2024 Albumin/Globulin [Mass ratio] 1.7 {ratio} 0.9-2.4 [facility] Serum or plasma alkaline elvia sphatase measurementOrdered By: Namrata Braden on 07-23-2024 ALP [Catalytic activity/Vol] 97 U/L 35-104 [facility] Serum or plasma calcium paty urement (mass/volume)Ordered By: Namrata Braden on 07-23-2024 Calcium [Mass/Vol] 9.6 mg/dL 7.6-11.0 [facility] Serum or plasma urea nitroge n measurement (mass/volume)Ordered By: Namrata Braden on 07-23-2024 Urea nitrogen [Mass/Vol] 20 mg/dL High 4-19 [facility] Sodium levelOrdered By: Jose Braden on 07-23-2024 Sodium [Moles/Vol] 141 mmol/L 133-145 [facility] Total proteinOrdered By: Tom Braden on 07-23-2024 Protein [Mass/Vol] 6.9 g/dL 5.9-8.4 [facility] White blood cell (WBC) count Ordered By: Namrata Braden on 07-23-2024 WBC (Bld) [#/Vol] 11.1 10*3/uL High 4.4-11.0 [facility] Hemoglobin A1con 06-26-2024 HbA1c (Bld) [Mass fraction] 5.6 % Low <=5.6 [facility] Comment on above: Performed By: #### L 500.3407 #### [facility] [place], [address] Absolute lymphocyte countOrd ered By: Namrata Braden on 06-25-2024 Lymphocytes Auto (Unsp spec) [#/Vol] 2.31 10*3/uL 0.83-4.51 [facility] Absolute neutrophil countOrd ered By: Namrata Braden on 06-25-2024 Neutrophils (Bld) [#/Vol] 4.9 10*3/uL 2.0-7.7 [facility] Anion gap in Serum or Plasma Ordered By: Namrata Braden on 06-25-2024 Anion gap [Moles/Vol] 12 mmol/L 5-15 [facility] Automated lymphocyte count a s percentage of total leukocytesOrdered By: Namrata Braden on 06-25-2024 Lymphocytes/100 WBC Auto (Unsp spec) 27.2 % 19-41 [facility] BUN/creatinine ratioOrdered By: Namrata Braden on 06-25-2024 Urea nitrogen/Creatinine [Mass ratio] 12.3 mg/mg 10-20 [facility] Basophil percentageOrdered B y: Namrata Braden on 06-25-2024 Basophils/100 WBC (Bld) 0.9 % 0-1 [facility] Bilirubin directOrdered By: Namrata Braden on 06-25-2024 Bilirubin.direct [Mass/Vol] 0.16 mg/dL 0.00-0.30 [facility] Bilirubin, Directon 06-26-19 Bilirubin.direct [Mass/Vol] 0.16 mg/dL Normal 0.00-0.30 [facility] Comment on above: Order Comment: DR. Elyse BARRAZA ORDERED CBCD AND CMP DR. MATTHEWS ORDERED LIVER Performed By: #### L 500.4050, L501.4700, L100.0100 #### [facility] [address] [place], [address] Bilirubin, totalOrdered By: Namrata Braden on 06-25-2024 Bilirubin [Mass/Vol] 0.35 mg/dL 0.00-1.30 [facility] CBC W/Diff, Automatedon 06-03 Absolute Lymph 2.31 X10 3/uL Normal 0.83-4.51 [facility] Comment on above: Order Comment: DR. Elyse BARRAZA ORDERED CBCD AND CMP DR. MATTHEWS ORDERED LIVER Performed By: #### L 500.4050, L501.4700, L100.0100 #### [facility] [address] [place], [address] Absolute Neut 4.9 X10 3/uL Normal 2.0-7.7 [facility] Comment on above: Order Comment: DR. Elyse BARRAZA ORDERED CBCD AND CMP DR. MATTHEWS ORDERED LIVER Performed By: #### L 500.4050, L501.4700, L100.0100 #### [facility] [address] [place], [address] Basophils/100 WBC (Bld) 0.9 % Normal 0-1 [facility] Comment on above: Order Comment: DR. Elyse BARRAZA ORDERED CBCD AND CMP DR. MATTHEWS ORDERED LIVER Performed By: #### L 500.4050, L501.4700, L100.0100 #### [facility] [address] [place], [address] Eosinophils/100 WBC (Bld) 5.6 % High 0-5 [facility] Comment on above: Order Comment: DR. Elyse BARRAZA ORDERED CBCD AND CMP DR. MATTHEWS ORDERED LIVER Performed By: #### L 500.4050, L501.4700, L100.0100 #### [facility] [address] [place], [address] Erythrocyte distribution width (RBC) [Ratio] 13.2 % Normal 11.6-14.6 [facility] Comment on above: Order Comment: DR. Elyse BARRAZA ORDERED CBCD AND CMP DR. MATTHEWS ORDERED LIVER Performed By: #### L 500.4050, L501.4700, L100.0100 #### [facility] [address] [place], [address] Hematocrit (Bld) [Volume fraction] 41.8 % Normal 37-47 [facility] Comment on above: Order Comment: DR. Elyse BARRAZA ORDERED CBCD AND CMP DR. MATTHEWS ORDERED LIVER Performed By: #### L 500.4050, L501.4700, L100.0100 #### [facility] [address] [place], [address] Hemoglobin (Bld) [Mass/Vol] 13.5 g/dL Normal 12.0-15.0 [facility] Comment on above: Order Comment: DR. Elyse BARRAZA ORDERED CBCD AND CMP DR. MATTHEWS ORDERED LIVER Performed By: #### L 500.4050, L501.4700, L100.0100 #### [facility] [address] [place], [address] IG% 0.500 Normal 0.0-0.9 [facility] Comment on above: Order Comment: DR. Elyse BARRAZA ORDERED CBCD AND CMP DR. MATTHEWS ORDERED LIVER Result Comment: IG% - Immature Granulocytes (promyelocytes, myelocytes and metamyelocytes) > 1% indicates that a LEFT SHIFT is Present. Performed By: #### L 500.4050, L501.4700, L100.0100 #### [facility] [address] [place], [address] Lymphocytes/100 WBC (Bld) 27.2 % Normal 19-41 [facility] Comment on above: Order Comment: DR. Elyse BARRAZA ORDERED CBCD AND CMP DR. MATTHEWS ORDERED LIVER Performed By: #### L 500.4050, L501.4700, L100.0100 #### [facility] [address] [place], [address] MCH (RBC) [Entitic mass] 28.8 pg Normal 27.0-32.0 [facility] Comment on above: Order Comment: DR. Elyse BARRAZA ORDERED CBCD AND CMP DR. MATTHEWS ORDERED LIVER Performed By: #### L 500.4050, L501.4700, L100.0100 #### [facility] [address] [place], [address] MCHC (RBC) [Mass/Vol] 32.3 g/dL Normal 32-36 [facility] Comment on above: Order Comment: DR. Elyse BARRAZA ORDERED CBCD AND CMP DR. MATTHEWS ORDERED LIVER Performed By: #### L 500.4050, L501.4700, L100.0100 #### [facility] [address] [place], [address] MCV (RBC) [Entitic vol] 89.3 fL Normal 81-99 [facility] Comment on above: Order Comment: DR. Elyse BARRAZA ORDERED CBCD AND CMP DR. MATTHEWS ORDERED LIVER Performed By: #### L 500.4050, L501.4700, L100.0100 #### [facility] [address] [place], [address] Monocytes/100 WBC (Bld) 8.7 % Normal 0-10 [facility] Comment on above: Order Comment: DR. Elyse BARRAZA ORDERED CBCD AND CMP DR. MATTHEWS ORDERED LIVER Performed By: #### L 500.4050, L501.4700, L100.0100 #### [facility] [address] [place], [address] Neutrophils/100 WBC (Bld) 57.1 % Normal 47-70 [facility] Comment on above: Order Comment: DR. Elyse BARARZA ORDERED CBCD AND CMP DR. MATTHEWS ORDERED LIVER Performed By: #### L 500.4050, L501.4700, L100.0100 #### [facility] [address] [place], [address] Nucleated RBC (Bld) [#/Vol] 0 10*3/uL Normal 0-5 [facility] Comment on above: Order Comment: DR. Elyse BARRAZA ORDERED CBCD AND CMP DR. MATTHEWS ORDERED LIVER Performed By: #### L 500.4050, L501.4700, L100.0100 #### [facility] [address] [place], [address] Platelet mean volume (Bld) [Entitic vol] 10.1 fL Normal 6.2-12.0 [facility] Comment on above: Order Comment: DR. Elyse BARRAZA ORDERED CBCD AND CMP DR. MATTHEWS ORDERED LIVER Performed By: #### L 500.4050, L501.4700, L100.0100 #### [facility] [address] [place], [address] Platelets (Bld) [#/Vol] 234 10*3/uL Normal 150-450 [facility] Comment on above: Order Comment: DR. Elyse BARRAZA ORDERED CBCD AND CMP DR. MATTHEWS ORDERED LIVER Performed By: #### L 500.4050, L501.4700, L100.0100 #### [facility] [address] [place], [address] RBC (Bld) [#/Vol] 4.68 10*6/uL Normal 4.2-5.4 [facility] Comment on above: Order Comment: DR. Elyse BARRAZA ORDERED CBCD AND CMP DR. MATTHEWS ORDERED LIVER Performed By: #### L 500.4050, L501.4700, L100.0100 #### [facility] [address] [place], [address] RDW SD 42.6 fl Normal 35.1-43.9 [facility] Comment on above: Order Comment: DR. Elyse BARRAZA ORDERED CBCD AND CMP DR. MATTHEWS ORDERED LIVER Performed By: #### L 500.4050, L501.4700, L100.0100 #### [facility] [address] [place], [address] WBC (Bld) [#/Vol] 8.5 10*3/uL Normal 4.4-11.0 [facility] Comment on above: Order Comment: DR. Elyse BARRAZA ORDERED CBCD AND CMP DR. MATTHEWS ORDERED LIVER Performed By: #### L 500.4050, L501.4700, L100.0100 #### [facility] [address] [place], [address] Carbon dioxide, total [Moles /volume] in Central venous bloodOrdered By: Namrata Braden on 06-25-2024 CO2 [Moles/Vol] 23.8 mmol/L 21.0-32.0 [facility] Chloride assayOrdered By: Beth Braden on 06-25-2024 Chloride [Moles/Vol] 108 mmol/L 98-108 [facility] Comprehensive Metabolic Prof ilon 06-25-2024 Albumin [Mass/Vol] 4.2 g/dL Normal 3.5-5.0 [facility] Comment on above: Order Comment: DR. Elyse BARRAZA ORDERED CBCD AND CMP DR. MATTHEWS ORDERED LIVER Performed By: #### L 500.4050, L501.4700, L100.0100 #### [facility] [address] [place], [address] Albumin/Globulin [Mass ratio] 1.7 {ratio} Normal 0.9-2.4 [facility] Comment on above: Order Comment: DR. Elyse BARRAZA ORDERED CBCD AND CMP DR. MATTHEWS ORDERED LIVER Performed By: #### L 500.4050, L501.4700, L100.0100 #### [facility] [address] [place], [address] ALK PHOS 95 U/L Normal 35-104 [facility] Comment on above: Order Comment: DR. Elyse BARRAZA ORDERED CBCD AND CMP DR. MATTHEWS ORDERED LIVER Performed By: #### L 500.4050, L501.4700, L100.0100 #### [facility] [address] [place], [address] ALT [Catalytic activity/Vol] 23 U/L Normal <=34 [facility] Comment on above: Order Comment: DR. Elyse BARRAZA ORDERED CBCD AND CMP DR. MATTHEWS ORDERED LIVER Performed By: #### L 500.4050, L501.4700, L100.0100 #### [facility] [address] [place], [address] AST [Catalytic activity/Vol] 22 U/L Normal <=31 [facility] Comment on above: Order Comment: DR. Elyse BARRAZA ORDERED CBCD AND CMP DR. MATTHEWS ORDERED LIVER Performed By: #### L 500.4050, L501.4700, L100.0100 #### [facility] [address] [place], [address] Bilirubin [Mass/Vol] 0.35 mg/dL Normal 0.00-1.30 [facility] Comment on above: Order Comment: DR. Elyse BARRAZA ORDERED CBCD AND CMP DR. MATTHEWS ORDERED LIVER Performed By: #### L 500.4050, L501.4700, L100.0100 #### [facility] [address] [place], [address] BUN/CRE 12.3 RATIO Normal 10-20 [facility] Comment on above: Order Comment: DR. Elyse BARRAZA ORDERED CBCD AND CMP DR. MATTHEWS ORDERED LIVER Performed By: #### L 500.4050, L501.4700, L100.0100 #### [facility] [address] [place], [address] Calcium [Mass/Vol] 9.7 mg/dL Normal 7.6-11.0 [facility] Comment on above: Order Comment: DR. Elyse BARRAZA ORDERED CBCD AND CMP DR. MATTHEWS ORDERED LIVER Performed By: #### L 500.4050, L501.4700, L100.0100 #### [facility] [address] [place], [address] Chloride [Moles/Vol] 108 mmol/L Normal 98-108 [facility] Comment on above: Order Comment: DR. Elyse BARRAZA ORDERED CBCD AND CMP DR. MATTHEWS ORDERED LIVER Performed By: #### L 500.4050, L501.4700, L100.0100 #### [facility] [address] [place], [address] CO2 [Moles/Vol] 23.8 mmol/L Normal 21.0-32.0 [facility] Comment on above: Order Comment: DR. Elyse BARRAZA ORDERED CBCD AND CMP DR. MATTHEWS ORDERED LIVER Performed By: #### L 500.4050, L501.4700, L100.0100 #### [facility] [address] [place], [address] Creatinine [Mass/Vol] 1.27 mg/dL High 0.70-1.20 [facility] Comment on above: Order Comment: DR. Elyse BARRAZA ORDERED CBCD AND CMP DR. MATTHEWS ORDERED LIVER Performed By: #### L 500.4050, L501.4700, L100.0100 #### [facility] [address] [place], [address] GAP 12 Normal 5-15 [facility] Comment on above: Order Comment: DR. Elyse BARRAZA ORDERED CBCD AND CMP DR. MATTHEWS ORDERED LIVER Performed By: #### L 500.4050, L501.4700, L100.0100 #### [facility] [address] [place], [address] GFR/1.73 sq M.predicted among non-blacks MDRD (S/P/Bld) [Vol rate/Area] 49 mL/min/{1.73_m2} Low >60 [facility] Comment on above: Order Comment: DR. Elyse BARRAZA ORDERED CBCD AND CMP DR. MATTHEWS ORDERED LIVER Result Comment: mL/m in/1.73m2 CKD-EPI Creatinine Equation (2020) Performed By: #### L 500.4050, L501.4700, L100.0100 #### [facility] [address] [place], [address] Globulin (S) [Mass/Vol] 2.5 g/dL Normal 2.2-4.2 [facility] Comment on above: Order Comment: DR. Elyse BARRAZA ORDERED CBCD AND CMP DR. MATTHEWS ORDERED LIVER Performed By: #### L 500.4050, L501.4700, L100.0100 #### [facility] [address] [place], [address] Glucose [Mass/Vol] 91 mg/dL Normal 70-99 [facility] Comment on above: Order Comment: DR. Elyse BARRAZA ORDERED CBCD AND CMP DR. MATTHEWS ORDERED LIVER Performed By: #### L 500.4050, L501.4700, L100.0100 #### [facility] [address] [place], [address] Potassium [Moles/Vol] 4.6 mmol/L Normal 3.3-5.1 [facility] Comment on above: Order Comment: DR. Elyse BARRAZA ORDERED CBCD AND CMP DR. MATTHEWS ORDERED LIVER Performed By: #### L 500.4050, L501.4700, L100.0100 #### [facility] [address] [place], [address] Sodium [Moles/Vol] 143 mmol/L Normal 133-145 [facility] Comment on above: Order Comment: DR. Elyse BARRAZA ORDERED CBCD AND CMP DR. MATTHEWS ORDERED LIVER Performed By: #### L 500.4050, L501.4700, L100.0100 #### [facility] [address] [place], [address] T PROT 6.7 g/dL Normal 5.9-8.4 [facility] Comment on above: Order Comment: DR. Elyse BARRAZA ORDERED CBCD AND CMP DR. MATTHEWS ORDERED LIVER Performed By: #### L 500.4050, L501.4700, L100.0100 #### [facility] [address] [place], [address] Urea nitrogen [Mass/Vol] 16 mg/dL Normal 4-19 [facility] Comment on above: Order Comment: DR. Elyse BARRAZA ORDERED CBCD AND CMP DR. MATTHEWS ORDERED LIVER Performed By: #### L 500.4050, L501.4700, L100.0100 #### [facility] [address] [place], [address] Eosinophil percentageOrdered By: Namrata Braden on 06-25-2024 Eosinophils/100 WBC (Bld) 5.6 % High 0-5 [facility] Erythrocyte distribution wid th ratioOrdered By: Namrata Braden on 06-25-2024 Erythrocyte distribution width (RBC) [Ratio] 13.2 % 11.6-14.6 [facility] Erythrocyte distribution wid th standard deviationOrdered By: Namrata Braden on 06-25-2024 Erythrocyte distribution width (RBC) [Entitic vol] 42.6 fL 35.1-43.9 [facility] Erythrocyte distribution width (RBC) [Ratio] 42.6 fl 35.1-43.9 [facility] GFR/1.73 sq M.predicted [place] g non-blacks MDRD (S/P/Bld) [Vol rate/Area]Ordered By: Namrata Braden on 06-25-2024 Estimated GFR (MDRD) Non-Af Amer 49 Low >60 [facility] Comment on above: mL/min/1.73m2 CKD-EP I Creatinine Equation (2020) Glomerular filtration rate ( GFR) estimation/1.73 sq m using serum, plasma, or whole bOrdered By: Namrata Braden on 06-25-2024 GFR/1.73 sq M.predicted among non-blacks MDRD (S/P/Bld) [Vol rate/Area] 49 mL/min/{1.73_m2} Low >60 [facility] Comment on above: mL/min/1.73m2 CKD-EP I Creatinine Equation (2020) Hematocrit Auto (Bld) [Volum e fraction]Ordered By: Namrata Braden on 06-25-2024 Hematocrit (Bld) [Volume fraction] 41.8 % 37-47 [facility] Hemoglobin A1c percentageOrd ered By: Nadine Salamanca on 06-25-2024 HbA1c (Bld) [Mass fraction] 5.6 % Low >5.7 [facility] Hemoglobin measurementOrdere d By: Namrata Braden on 06-25-2024 Hemoglobin (Bld) [Mass/Vol] 13.5 g/dL 12.0-15.0 [facility] Immature granulocytes/100 WB C Auto (Bld)Ordered By: Namrata Braden on 06-25-2024 Immature granulocytes/100 WBC (Bld) 0.500 % 0.0-0.9 [facility] Comment on above: IG% - Immature Granu locytes (promyelocytes, myelocytes and metamyelocytes) > 1% indicates that a LEFT SHIFT is Present. [facility] 025 Kidney [facility] Bladder [facility] [address] [place] [address] Kidney and Bladder MR#: [id number] Acct: [id number] Name: ISI GENAO Rep #: [id number] : 1965 F 59 From: Juan F Maloney MD PCP: Dr. Nadine Salamanca MD Status: REG CLI Study: Kidney and Bladder Date of Exam: 06/25/24 Exam# [id number] Ordering Dr: Aaron Matthews MD EXAM: US [...] IMPRESSION: Multiple bilateral renal cysts. Reading Location: [facility] CC: Dr. Nadine Salamanca MD; Dr. 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: Signed Normal [facility] - Chemistry and C hemistry - challengeOrdered By: Namrata Braden on 06-25-2024 AST [Catalytic activity/Vol] 22 U/L <32 [facility] Lymphocytes Auto (Unsp spec) [#/Vol]Ordered By: Namrata Braden on 06-25-2024 Lymphocytes (Bld) [#/Vol] 2.31 10*3/uL 0.83-4.51 [facility] Lymphocytes/100 WBC Auto (Un sp spec)Ordered By: Namrata Braden on 06-25-2024 Lymphocytes/100 WBC (Bld) 27.2 % 19-41 [facility] MCV (mean corpuscular volume ) determinationOrdered By: Namrata Braden on 06-25-2024 MCV (RBC) [Entitic vol] 89.3 fL 81-99 [facility] Mean corpuscular hemoglobin (MCH) determinationOrdered By: Namrata Braden on 06-25-2024 MCH (RBC) [Entitic mass] 28.8 pg 27.0-32.0 [facility] Mean corpuscular hemoglobin concentration (MCHC) determinationOrdered By: Namrata Braden on 06-25-2024 MCHC (RBC) [Mass/Vol] 32.3 g/dL 32-36 [facility] Mean platelet volume determi nationOrdered By: Namrata Braden on 06-25-2024 Platelet mean volume (Bld) [Entitic vol] 10.1 fL 6.2-12.0 [facility] Monocyte percentageOrdered B y: Namrata Braden on 06-25-2024 Monocytes/100 WBC (Bld) 8.7 % 0-10 [facility] Neutrophil percentageOrdered By: Namrata Braden on 06-25-2024 Neutrophils/100 WBC (Bld) 57.1 % 47-70 [facility] Nucleated red blood cell per centageOrdered By: Namrata Braden on 06-25-2024 Nucleated RBC/100 WBC (Bld) [Ratio] 0 % 0-5 [facility] Platelet countOrdered By: Beth Braden on 06-25-2024 Platelets (Bld) [#/Vol] 234 10*3/uL 150-450 [facility] Potassium (Unsp spec) [Mass/ Vol]Ordered By: Namrata Braden on 06-25-2024 Potassium [Moles/Vol] 4.6 mmol/L 3.3-5.1 [facility] Potassium measurement (mass/ volume)Ordered By: Namrata Braden on 06-25-2024 Potassium (Unsp spec) [Mass/Vol] 4.6 mmol/L 3.3-5.1 [facility] RBC Auto (Bld) [#/Vol]Ordere d By: Namrata Braden on 06-25-2024 RBC (Bld) [#/Vol] 4.68 10*6/uL 4.2-5.4 [facility] Serum creatinine measurement (mass/volume)Ordered By: Namrata Braden on 06-25-2024 Creatinine [Mass/Vol] 1.27 mg/dL High 0.70-1.20 [facility] Serum globulin measurementOr dered By: Namrata Braden on 06-25-2024 Globulin (S) [Mass/Vol] 2.5 g/dL 2.2-4.2 [facility] Serum glucose measurement (m ass/volume)Ordered By: Namrata Braden on 06-25-2024 Glucose [Mass/Vol] 91 mg/dL 70-99 [facility] Serum or plasma alanine peralta otransferase (ALT) measurementOrdered By: Namrata Braden on 06-25-2024 ALT [Catalytic activity/Vol] 23 U/L <35 [facility] [facility] Serum or plasma albumin paty urement (mass/volume)Ordered By: Namrata Braden on 06-25-2024 Albumin [Mass/Vol] 4.2 g/dL 3.5-5.0 [facility] Serum or plasma albumin/glob ulin mass ratioOrdered By: Namrata Braden on 06-25-2024 Albumin/Globulin [Mass ratio] 1.7 {ratio} 0.9-2.4 [facility] Serum or plasma alkaline elvia sphatase measurementOrdered By: Namrata Braden on 06-25-2024 ALP [Catalytic activity/Vol] 95 U/L 35-104 [facility] Serum or plasma calcium paty urement (mass/volume)Ordered By: Namrata Braden on 06-25-2024 Calcium [Mass/Vol] 9.7 mg/dL 7.6-11.0 [facility] Serum or plasma urea nitroge n measurement (mass/volume)Ordered By: Namrata Braden on 06-25-2024 Urea nitrogen [Mass/Vol] 16 mg/dL 4-19 [facility] Sodium levelOrdered By: Jose Braden on 06-25-2024 Sodium [Moles/Vol] 143 mmol/L 133-145 [facility] Total proteinOrdered By: Tom Braden on 06-25-2024 Protein [Mass/Vol] 6.7 g/dL 5.9-8.4 [facility] White blood cell (WBC) count Ordered By: Namrata Braden on 06-25-2024 WBC (Bld) [#/Vol] 8.5 10*3/uL 4.4-11.0 [facility] Internal Medicine Office Vis anna 06-11-2024 Internal Medicine Office Visit [facility] [address] [place] [address] [place], [place] [address] OFFICE VISIT Date of Service: 06/11/24 MR#: [id number] Acct: [id number] Name: ISI GENAO Rep #: [id number] : 1965 Provider: Dr. Nadine vick MD Age/Sex: 59/F Location: [facility] Status: Signed Intake Vital Signs 02/17/24 09:59 [...] you fallen in the past year?: No PFSH Medical History Obstructive sleep apnea Elevated antinuclear [...] nasal d (more content not included)... Normal [facility] Protein+Creatinine Ratio,Uri neon 05-30-2024 PROT:CRE RATIO 120 mg/g CRE Normal 0-200 [facility] Comment on above: Performed By: #### L 500.3400 #### [facility] [address] [place], [address] UR CREAT 54.40 mg/dL Normal NO RANGE EST. [facility] Comment on above: Performed By: #### L 500.3400 #### [facility] [address] [place], [address] Urine protein measurement (m ass/volume)Ordered By: Aaron Matthews on 05-30-2024 Protein (U) [Mass/Vol] 7 mg/dL Normal <=12 [facility] Comment on above: Performed By: #### L 500.3400 #### [facility] [address] [place], [address] Creatinine Unsp time (U) [Ma ss/Vol]Ordered By: Aaron Matthews on 05-29-2024 Creatinine (U) [Mass/Vol] 54.40 mg/dL NO RANGE EST. [facility] Protein/Creatinine (U) [Mass ratio]Ordered By: Aaron Matthews on 05-29-2024 Urine Protein/Creatinine Ratio 120 mg/g CRE 0-200 [facility] Random urine creatinine paty urement (mass/volume)Ordered By: Aaron Matthews on 05-29-2024 Creatinine Unsp time (U) [Mass/Vol] 54.40 mg/dL NO RANGE EST. [facility] Urine protein/creatinine mas s ratioOrdered By: Aaron Matthews on 05-29-2024 Protein/Creatinine (U) [Mass ratio] 120 mg/g CRE 0-200 [facility] [id number]-[id number] DOrdered By: Vinnie Matthews on 05-28-2024 Vitamin D 25-Hydroxy 37.4 ng/mL [facility] Comment on above: Vitamin D 25(OH) Sta tus Range Deficiency <20 ng/mL (50nmol/L) Insufficiency 20 - 30 ng/mL (50 - 75 nmol/L) Sufficiency 30 - 100 ng/mL (75 - 250 nmol/L) Toxicity >100 ng/mL (>250 nmol/L) Basic Metabolic Profile (BMP )on 05-28-2024 BUN/CRE 13.4 RATIO Normal 10-20 [facility] Comment on above: Performed By: #### L 500.3400 #### [facility] [address] [place], [address] CA,Total 9.3 mg/dL Normal 8.5-10.1 [facility] Comment on above: Performed By: #### L 500.3400 #### [facility] [address] [place], [address] Chloride [Moles/Vol] 109 mmol/L High 98-107 [facility] Comment on above: Performed By: #### L 500.3400 #### [facility] [address] [place], [address] CO2 [Moles/Vol] 25.0 mmol/L Normal 21.0-32.0 [facility] Comment on above: Performed By: #### L 500.3400 #### [facility] [address] [place], [address] Creatinine [Mass/Vol] 1.42 mg/dL High 0.55-1.02 [facility] Comment on above: Result Comment: The validity of the calculated GFR GFRAA in patients over 70 years has not been determined. Clinical correlation is essential. Performed By: #### L 500.3400 #### [facility] [address] [place], [address] EST GFR - AA 49 mL/min Low >60 [facility] Comment on above: Result Comment: Afri can [place] GFR Calc Performed By: #### L 500.3400 #### [facility] [address] [place], [address] GAP 8 Normal 5-15 [facility] Comment on above: Performed By: #### L 500.3400 #### [facility] [address] [place], [address] GFR/1.73 sq M.predicted among non-blacks MDRD (S/P/Bld) [Vol rate/Area] 40 mL/min/{1.73_m2} Low >60 [facility] Comment on above: Result Comment: Non- GFR Calc Performed By: #### L 500.3400 #### [facility] [address] [place], [address] Glucose [Mass/Vol] 115 mg/dL High 74-106 [facility] Comment on above: Result Comment: Fast ing Glucose result from 100 to 125 mg/dL suggests IMPAIRED HOMEOSTASIS per A.D.A. criteria. Performed By: #### L 500.3400 #### [facility] [address] [place], [address] Potassium [Moles/Vol] 4.2 mmol/L Normal 3.5-5.1 [facility] Comment on above: Performed By: #### L 500.3400 #### [facility] [address] [place], [address] Sodium [Moles/Vol] 142 mmol/L Normal 136-145 [facility] Comment on above: Performed By: #### L 500.3400 #### [facility] [address] [place], [place], [id number] Urea nitrogen [Mass/Vol] 19 mg/dL High 7-18 [facility] Comment on above: Performed By: #### L 500.3400 #### [facility] [address] [place], [place], [id number] Bilirubin directOrdered By: Aaron Matthews on 05-28-2024 Bilirubin.direct [Mass/Vol] 0.11 mg/dL 0.00-0.30 [facility] Bilirubin, totalOrdered By: Aaron Matthews on 05-28-2024 Bilirubin [Mass/Vol] 0.40 mg/dL 0.20-1.00 [facility] Comment on above: For patients on eltr ombopag therapy, use of Dimension [place] TBIL is not recommended. Blood urea nitrogen (BUN)/cr eatinine ratioOrdered By: Aaron Matthews on 05-28-2024 Urea nitrogen/Creatinine [Mass ratio] 13.4 mg/mg 10-20 [facility] CBC-Complete Blood Cnt No Di ffon 05-28-2024 Erythrocyte distribution width (RBC) [Ratio] 13.1 % Normal 11.6-14.6 [facility] Comment on above: Performed By: #### L 500.3400 #### [facility] [address] [place], [place], [phone] ([phone] Hematocrit (Bld) [Volume fraction] 42.5 % Normal 37-47 [facility] Comment on above: Performed By: #### L 500.3400 #### [facility] [address] [place], [phone] Hemoglobin (Bld) [Mass/Vol] 13.8 g/dL Normal 12.0-15.0 [facility] Comment on above: Performed By: #### L 500.3400 #### [facility] [address] [place], [place], [phone] ([phone] MCH (RBC) [Entitic mass] 29.0 pg Normal 27.0-32.0 [facility] Comment on above: Performed By: #### L 500.3400 #### [facility] [address] [place], [address] MCHC (RBC) [Mass/Vol] 32.5 g/dL Normal 32-36 [facility] Comment on above: Performed By: #### L 500.3400 #### [facility] [address] [place], [address] MCV (RBC) [Entitic vol] 89.3 fL Normal 81-99 [facility] Comment on above: Performed By: #### L 500.3400 #### [facility] [address] [place], [address] Platelet mean volume (Bld) [Entitic vol] 10.0 fL Normal 6.2-12.0 [facility] Comment on above: Performed By: #### L 500.3400 #### [facility] [address] [place], [address] Platelets (Bld) [#/Vol] 249 10*3/uL Normal 150-450 [facility] Comment on above: Performed By: #### L 500.3400 #### [facility] [address] [place], [address] RBC (Bld) [#/Vol] 4.76 10*6/uL Normal 4.2-5.4 [facility] Comment on above: Performed By: #### L 500.3400 #### [facility] [address] [place], [address] RDW SD 42.9 fl Normal 35.1-43.9 [facility] Comment on above: Performed By: #### L 500.3400 #### [facility] [address] [place], [address] WBC (Bld) [#/Vol] 10.1 10*3/uL Normal 4.4-11.0 [facility] Comment on above: Performed By: #### L 093.6123 #### [facility] [place], [address] Carbon dioxide measurementOr dered By: Aaron Matthews on 05-28-2024 CO2 [Moles/Vol] 25.0 mmol/L 21.0-32.0 [facility] Chloride measurementOrdered By: Aaron Matthews on 05-28-2024 Chloride [Moles/Vol] 109 mmol/L High 98-107 [facility] Erythrocyte distribution wid th ratioOrdered By: [facility] Cassie on 05-28-2024 Erythrocyte distribution width (RBC) [Ratio] 13.1 % 11.6-14.6 [facility] Erythrocyte distribution wid th standard deviationOrdered By: [facility] Cassie on 05-28-2024 Erythrocyte distribution width (RBC) [Entitic vol] 42.9 fL 35.1-43.9 [facility] Erythrocyte distribution width (RBC) [Ratio] 42.9 fl 35.1-43.9 [facility] Estimated glomerular filtrat ion rate (GFR) AmericanOrdered By: Aaron Matthews on 05-28-2024 Estimated GFR (MDRD) Amer 49 mL/min Low >60 [facility] Comment on above: GFR Calc Glomerular filtration rate ( GFR) estimationOrdered By: Aaron Matthews on 05-28-2024 Estimated GFR (MDRD) Non-Af Amer 40 mL/min Low >60 [facility] Comment on above: Non- GFR Calc GFR/1.73 sq M.predicted among non-blacks MDRD (S/P/Bld) [Vol rate/Area] 40 mL/min/{1.73_m2} Low >60 [facility] Comment on above: Non- GFR Calc Glucose measurementOrdered B y: Aaron Matthews on 05-28-2024 Glucose [Mass/Vol] 115 mg/dL High 74-106 [facility] Comment on above: Fasting Glucose resu lt from 100 to 125 mg/dL suggests IMPAIRED HOMEOSTASIS per A.D.A. criteria. Hematocrit Auto (Bld) [Volum e fraction]Ordered By: Aaron Matthews on 05-28-2024 Hematocrit (Bld) [Volume fraction] 42.5 % 37-47 [facility] Hemoglobin measurementOrdere d By: Aaron Matthews on 05-28-2024 Hemoglobin (Bld) [Mass/Vol] 13.8 g/dL 12.0-15.0 [facility] Intact parathyroid hormone ( iPTH) measurementOrdered By: Aaron Matthews on 05-28-2024 Parathyroid Hormone (Intact) 86.6 pg/mL High 18.4-80.1 [facility] - Chemistry and C hemistry - challengeOrdered By: Aaron Matthews on 05-28-2024 AST [Catalytic activity/Vol] 24 U/L 15- [facility] Liver Profileon 05-28-2024 Albumin [Mass/Vol] 3.8 g/dL Normal 3.2-5.0 [facility] Comment on above: Performed By: #### L 500.3400 #### [facility] [address] [place], [address] ALK P 99 U/L Normal 45-117 [facility] Comment on above: Performed By: #### L 500.3400 #### [facility] [address] [place], [address] ALT [Catalytic activity/Vol] 36 U/L Normal 13-56 [facility] Comment on above: Performed By: #### L 500.3400 #### [facility] [address] [place], [address] AST [Catalytic activity/Vol] 24 U/L Normal 15-37 [facility] Comment on above: Performed By: #### L 500.3400 #### [facility] [address] [place], [address] Bilirubin [Mass/Vol] 0.40 mg/dL Normal 0.20-1.00 [facility] Comment on above: Result Comment: For patients on eltrombopag therapy, use of Dimension [place] TBIL is not recommended. Performed By: #### L 500.3400 #### [facility] [address] [place], [place], [id number] Bilirubin.direct [Mass/Vol] 0.11 mg/dL Normal 0.00-0.30 [facility] Comment on above: Performed By: #### L 500.3400 #### [facility] [address] [place], [address] Globulin (S) [Mass/Vol] 3.1 g/dL Normal 2.2-4.2 [facility] Comment on above: Performed By: #### L 500.3400 #### [facility] [address] [place], [place], [id number] T PROT 6.9 g/dL Normal 6.4-8.2 [facility] Comment on above: Performed By: #### L 500.3400 #### [facility] [address] [place], [place], [address] MCV (mean corpuscular volume ) determinationOrdered By: Aaron Cassie on 05-28-2024 MCV (RBC) [Entitic vol] 89.3 fL 81-99 [facility] Mean corpuscular hemoglobin (MCH) determinationOrdered By: [facility] MCH (RBC) [Entitic mass] 29.0 pg 27.0-32.0 [facility] Mean corpuscular hemoglobin concentration (MCHC) determinationOrdered By: [facility] Cassie on 05-28-2024 MCHC (RBC) [Mass/Vol] 32.5 g/dL 32-36 [facility] Mean platelet volume determi nationOrdered By: [facility] Cassie on 05-28-2024 Platelet mean volume (Bld) [Entitic vol] 10.0 fL 6.2-12.0 [facility] PTHINon 05-28-2024 PTH 86.6 pg/mL High 18.4-80.1 [facility] Comment on above: Performed By: #### L 500.3400 #### [facility] [address] [place], [address] Phosphoruson 05-28-2024 Phosphate [Mass/Vol] 3.9 mg/dL Normal 2.5-4.9 [facility] Comment on above: Performed By: #### L 500.3400 #### [facility] [address] [place], [address] Phosphorus measurementOrdere d By: Aaron Cassie on 05-28-2024 Phosphorus Level 3.9 mg/dL 2.5-4.9 [facility] Platelet countOrdered By: Ru pesh Cassie on 05-28-2024 Platelets (Bld) [#/Vol] 249 10*3/uL 150-450 [facility] Potassium measurementOrdered By: Aaron Cassie on 05-28-2024 Potassium [Moles/Vol] 4.2 mmol/L 3.5-5.1 [facility] Protein+Creatinine Ratio,Uri neon 05-28-2024 PROT:CRE RATIO Normal 0-200 [facility] Comment on above: Result Comment: AKANKSHA ENT DROPPED URINE IN TOILET Performed By: #### L 500.3400 #### [facility] [address] [place], [address] PROTEIN,UR.RAN. Normal <11.9 [facility] Comment on above: Result Comment: AKANKSHA ENT DROPPED URINE IN TOILET Performed By: #### L 500.3400 #### [facility] [address] [place], [address] UR CREAT Normal NO RANGE EST. [facility] Comment on above: Result Comment: AKANKSHA ENT DROPPED URINE IN TOILET Performed By: #### L 500.3400 #### [facility] [address] [place], [address] RBC Auto (Bld) [#/Vol]Ordere d By: Aaron Cassie on 05-28-2024 RBC (Bld) [#/Vol] 4.76 10*6/uL 4.2-5.4 [facility] Serum anion gap measurementO rdered By: [facility] Cassie on 05-28-2024 Anion gap [Moles/Vol] 8 mmol/L 5-15 [facility] Serum globulin measurementOr dered By: [facility] Cassie on 05-28-2024 Globulin (S) [Mass/Vol] 3.1 g/dL 2.2-4.2 [facility] Serum or plasma alanine peralta otransferase (ALT) measurementOrdered By: [facility] 05-[facility] ALT [Catalytic activity/Vol] 36 U/L 13-56 [facility] Serum or plasma albumin paty urement (mass/volume)Ordered By: [facility] 05-28-2024 Albumin [Mass/Vol] 3.8 g/dL 3.2-5.0 [facility] Serum or plasma alkaline elvia sphatase measurementOrdered By: [facility] on 05-28-2024 ALP [Catalytic activity/Vol] 99 U/L 45-117 [facility] Serum or plasma calcium paty urement (mass/volume)Ordered By: [facility] on 05-28-2024 Calcium [Mass/Vol] 9.3 mg/dL 8.5-10.1 [facility] Serum or plasma creatinine m easurement (mass/volume)Ordered By: [facility] 05-28-2024 Creatinine [Mass/Vol] 1.42 mg/dL High 0.55-1.02 [facility] Comment on above: The validity of the calculated GFR & GFRAA in patients over 70 years has not been determined. Clinical correlation is essential. Serum or plasma urea nitroge n measurement (mass/volume)Ordered By: [facility] 05-28-2024 Urea nitrogen [Mass/Vol] 19 mg/dL High 7-18 [facility] Sodium levelOrdered By: [facility] on 05-28-2024 Sodium [Moles/Vol] 142 mmol/L 136-145 [facility] Total [facility]Or[facility] By: [facility] Protein [Mass/Vol] 6.9 g/dL 6.4-8.2 [facility] Vitamin D,25 Hydroxyon 05-28 Vitamin D 25-OH 37.4 ng/mL Normal [facility] Comment on above: Result Comment: Monika min D 25(OH) Status Range Deficiency <20 ng/mL (50nmol/L) Insufficiency 20 - 30 ng/mL (50 - 75 nmol/L) Sufficiency 30 - 100 ng/mL (75 - 250 nmol/L) Toxicity >100 ng/mL (>250 nmol/L) Performed By: #### L 500.3400 #### [facility] [address] [place], [address] White blood cell (WBC) count Ordered By: Aaron Matthews on 05-28-2024 WBC (Bld) [#/Vol] 10.1 10*3/uL 4.4-11.0 [facility] Bilirubin directOrdered By: Aaron Matthews on 04-30-2024 Bilirubin.direct [Mass/Vol] 0.10 mg/dL 0.00-0.30 [facility] Bilirubin, totalOrdered By: Aaron Matthews on 04-30-2024 Bilirubin [Mass/Vol] 0.40 mg/dL 0.20-1.00 [facility] Comment on above: For patients on eltr ombopag therapy, use of Dimension [place] TBIL is not recommended. Laboratory - Chemistry and C hemistry - challengeOrdered By: Aaron Matthews on 04-30-2024 AST [Catalytic activity/Vol] 19 U/L 15-37 [facility] Liver Profileon 04-30-2024 Albumin [Mass/Vol] 3.8 g/dL Normal 3.2-5.0 [facility] Comment on above: Performed By: #### L 500.3400 #### [facility] [address] [place], [address] ALK P 101 U/L Normal 45-117 [facility] Comment on above: Performed By: #### L 500.3400 #### [facility] [address] [place], [address] ALT [Catalytic activity/Vol] 41 U/L Normal 13-56 [facility] Comment on above: Performed By: #### L 500.3400 #### [facility] [address] [place], [address] AST [Catalytic activity/Vol] 19 U/L Normal 15-37 [facility] Comment on above: Performed By: #### L 500.3400 #### [facility] [address] [place], [address] Bilirubin [Mass/Vol] 0.40 mg/dL Normal 0.20-1.00 [facility] Comment on above: Result Comment: For patients on eltrombopag therapy, use of Dimension [place] TBIL is not recommended. Performed By: #### L 500.3400 #### [facility] [address] [place], [address] Bilirubin.direct [Mass/Vol] 0.10 mg/dL Normal 0.00-0.30 [facility] Comment on above: Performed By: #### L 500.3400 #### [facility] [address] [place], [address] Globulin (S) [Mass/Vol] 3.4 g/dL Normal 2.2-4.2 [facility] Comment on above: Performed By: #### L 500.3400 #### [facility] [address] [place], [address] T PROT 7.2 g/dL Normal 6.4-8.2 [facility] Comment on above: Performed By: #### L 500.3400 #### [facility] [address] [place], [address] Serum globulin measurementOr dered By: Aaron Matthews on 04-30-2024 Globulin (S) [Mass/Vol] 3.4 g/dL 2.2-4.2 [facility] Serum or plasma alanine peralta otransferase (ALT) measurementOrdered By: Aaron Matthews on 04-30-2024 ALT [Catalytic activity/Vol] 41 U/L 13-56 [facility] Serum or plasma albumin paty urement (mass/volume)Ordered By: [facility] Cassie on 04-30-2024 Albumin [Mass/Vol] 3.8 g/dL 3.2-5.0 [facility] Serum or plasma alkaline elvia sphatase measurementOrdered By: [facility] Cassie on 04-30-2024 ALP [Catalytic activity/Vol] 101 U/L 45-117 [facility] Total proteinOrdered By: [facility] on 04-30-2024 Protein [Mass/Vol] 7.2 g/dL 6.4-8.2 [facility] Absolute neutrophil countOrd ered By: Namrata Braden on 04-02-2024 Neutrophils (Bld) [#/Vol] 3.1 10*3/uL 2.0-7.7 [facility] Albumin to globulin ratioOrd ered By: Namrata Braden on 04-02-2024 Albumin/Globulin [Mass ratio] 1.1 {ratio} 0.9-2.4 [facility] Basophil percentageOrdered B y: Namrata Braden on 04-02-2024 Basophils/100 WBC (Bld) 1.1 % High 0-1 [facility] Bilirubin directOrdered By: Namrata Braden on 04-02-2024 Bilirubin.direct [Mass/Vol] 0.08 mg/dL 0.00-0.30 [facility] Bilirubin, Directon 04-02-20 24 Bilirubin.direct [Mass/Vol] 0.08 mg/dL Normal 0.00-0.30 [facility] Comment on above: Order Comment: DR. Vinnie KLEIN ORDERED LIVER PANELDR. BRADEN ORDERED CBCD AND CMP Performed By: #### L 500.3780 #### [facility] [address] [place], [address] Bilirubin, totalOrdered By: Namrata Bradne on 04-02-2024 Bilirubin [Mass/Vol] 0.50 mg/dL 0.20-1.00 [facility] Comment on above: For patients on eltr ombopag therapy, use of Dimension [place] TBIL is not recommended. Blood urea nitrogen (BUN)/cr eatinine ratioOrdered By: Namrata Braden on 04-02-2024 Urea nitrogen/Creatinine [Mass ratio] 11.5 mg/mg - [facility] CBC W/Diff, Automatedon 12 Absolute Lymph 2.15 X10 3/uL Normal 0.83-4.51 [facility] Comment on above: Order Comment: DR. Vinnie KLEIN ORDERED LIVER PANELDR. BRADEN ORDERED CBCD AND CMP Performed By: #### L 500.3400 #### [facility] [address] [place], [address] Absolute Neut 3.1 X10 3/uL Normal 2.0-7.7 [facility] Comment on above: Order Comment: DR. Vinnie KLEIN ORDERED LIVER PANELDR. BRADEN ORDERED CBCD AND CMP Performed By: #### L 500.3400 #### [facility] [address] [place], [address] Basophils/100 WBC (Bld) 1.1 % High 0-1 [facility] Comment on above: Order Comment: DR. Vinnie KLEIN ORDERED LIVER PANELDR. BRADEN ORDERED CBCD AND CMP Performed By: #### L 500.3400 #### [facility] [address] [place], [address] Eosinophils/100 WBC (Bld) 6.5 % High 0-5 [facility] Comment on above: Order Comment: DR. Vinnie KLEIN ORDERED LIVER PANELDR. BRADEN ORDERED CBCD AND CMP Performed By: #### L 500.3400 #### [facility] [address] [place], [address] Erythrocyte distribution width (RBC) [Ratio] 12.4 % Normal 11.6-14.6 [facility] Comment on above: Order Comment: DR. Vinnie KLEIN ORDERED LIVER PANELDR. BRADEN ORDERED CBCD AND CMP Performed By: #### L 500.3400 #### [facility] [address] [place], [address] Hematocrit (Bld) [Volume fraction] 42.3 % Normal 37-47 [facility] Comment on above: Order Comment: DR. Vinnie KLEIN ORDERED LIVER PANELDRJose Eduardo BRADEN ORDERED CBCD AND CMP Performed By: #### L 500.3400 #### [facility] [address] [place], [address] Hemoglobin (Bld) [Mass/Vol] 13.6 g/dL Normal 12.0-15.0 [facility] Comment on above: Order Comment: DR. Vinnie KLEIN ORDERED LIVER PANELDRJose Eduardo BRADEN ORDERED CBCD AND CMP Performed By: #### L 500.3400 #### [facility] [address] [place], [address] IG% 0.300 Normal 0.0-0.9 [facility] Comment on above: Order Comment: DR. Vinnie KLEIN ORDERED LIVER PANELDRJose Eduardo BRADEN ORDERED CBCD AND CMP Result Comment: IG% - Immature Granulocytes (promyelocytes, myelocytes and metamyelocytes) > 1% indicates that a LEFT SHIFT is Present. Performed By: #### L 500.3400 #### [facility] [address] [place], [address] Lymphocytes/100 WBC (Bld) 34.0 % Normal 19-41 [facility] Comment on above: Order Comment: DR. Vinnie KLEIN ORDERED LIVER PANELDRJose Eduardo BRADEN ORDERED CBCD AND CMP Performed By: #### L 500.3400 #### [facility] [address] [place], [address] MCH (RBC) [Entitic mass] 28.4 pg Normal 27.0-32.0 [facility] Comment on above: Order Comment: DR. Vinnie KLEIN ORDERED LIVER PANELDRJose Eduardo BRADEN ORDERED CBCD AND CMP Performed By: #### L 500.3400 #### [facility] [address] [place], [address] MCHC (RBC) [Mass/Vol] 32.2 g/dL Normal 32-36 [facility] Comment on above: Order Comment: DR. Vinnie KLEIN ORDERED LIVER PANELDR. BRADEN ORDERED CBCD AND CMP Performed By: #### L 500.3400 #### [facility] [address] [place], [address] MCV (RBC) [Entitic vol] 88.3 fL Normal 81-99 [facility] Comment on above: Order Comment: DR. Vinnie KLEIN ORDERED LIVER PANELDR. BRADEN ORDERED CBCD AND CMP Performed By: #### L 500.3400 #### [facility] [address] [place] [place], [address] Monocytes/100 WBC (Bld) 8.5 % Normal 0-10 [facility] Comment on above: Order Comment: DR. Vinnie KLEIN ORDERED LIVER PANELDR. BRADEN ORDERED CBCD AND CMP Performed By: #### L 500.3400 #### [facility] [address] [place], [address] Neutrophils/100 WBC (Bld) 49.6 % Normal 47-70 [facility] Comment on above: Order Comment: DR. Vinnie KLEIN ORDERED LIVER PANELDR. BRADEN ORDERED CBCD AND CMP Performed By: #### L 500.3400 #### [facility] [address] [place], [address] Nucleated RBC (Bld) [#/Vol] 0 10*3/uL Normal 0-5 [facility] Comment on above: Order Comment: DR. Vinnie KLEIN ORDERED LIVER PANELDR. BRADEN ORDERED CBCD AND CMP Performed By: #### L 500.3400 #### [facility] [address] [place], [address] Platelet mean volume (Bld) [Entitic vol] 10.0 fL Normal 6.2-12.0 [facility] Comment on above: Order Comment: DR. Vinnie KLEIN ORDERED LIVER PANELDR. BRADEN ORDERED CBCD AND CMP Performed By: #### L 500.3400 #### [facility] [address] [place], [address] Platelets (Bld) [#/Vol] 231 10*3/uL Normal 150-450 [facility] Comment on above: Order Comment: DR. Vinnie KLEIN ORDERED LIVER PANELDR. BRADEN ORDERED CBCD AND CMP Performed By: #### L 500.3400 #### [facility] [address] [place], [address] RBC (Bld) [#/Vol] 4.79 10*6/uL Normal 4.2-5.4 [facility] Comment on above: Order Comment: DR. Vinnie KLEIN ORDERED LIVER PANELDR. BRADNE ORDERED CBCD AND CMP Performed By: #### L 500.3400 #### [facility] [address] [place], [address] RDW SD 40.0 fl Normal 35.1-43.9 [facility] Comment on above: Order Comment: DR. Vinnie KLEIN ORDERED LIVER PANELDR. BRADEN ORDERED CBCD AND CMP Performed By: #### L 500.3400 #### [facility] [address] [place], [address] WBC (Bld) [#/Vol] 6.3 10*3/uL Normal 4.4-11.0 [facility] Comment on above: Order Comment: DR. Vinnie KLEIN ORDERED LIVER PANELDR. BRADEN ORDERED CBCD AND CMP Performed By: #### L 500.3400 #### [facility] [address] [place], [address] Carbon dioxide measurementOr dered By: Namrata Braden on 04-02-2024 CO2 [Moles/Vol] 26.0 mmol/L 21.0-32.0 [facility] Chloride measurementOrdered By: Namrata Braden on 04-02-2024 Chloride [Moles/Vol] 109 mmol/L High 98-107 [facility] Comprehensive Metabolic Prof ilon 04-02-2024 Albumin [Mass/Vol] 3.6 g/dL Normal 3.2-5.0 [facility] Comment on above: Order Comment: DR. Vinnie KLEIN ORDERED LIVER PANELDR. BRADEN ORDERED CBCD AND CMP Performed By: #### L 500.3400 #### [facility] [address] [place], [address] Albumin/Globulin [Mass ratio] 1.1 {ratio} Normal 0.9-2.4 [facility] Comment on above: Order Comment: DR. Vinnie KLEIN ORDERED LIVER PANELDR. BRADEN ORDERED CBCD AND CMP Performed By: #### L 500.3400 #### [facility] [address] [place], [address] ALK P 95 U/L Normal 45-117 [facility] Comment on above: Order Comment: DR. Vinnie KLEIN ORDERED LIVER PANELDR. BRADEN ORDERED CBCD AND CMP Performed By: #### L 500.3400 #### [facility] [address] [place], [address] ALT [Catalytic activity/Vol] 41 U/L Normal 13-56 [facility] Comment on above: Order Comment: DR. Vinnie KLEIN ORDERED LIVER PANELDR. BRADEN ORDERED CBCD AND CMP Performed By: #### L 500.3400 #### [facility] [address] [place], [address] AST [Catalytic activity/Vol] 23 U/L Normal 15-37 [facility] Comment on above: Order Comment: DR. Vinnie KLEIN ORDERED LIVER PANELDR. BRADEN ORDERED CBCD AND CMP Performed By: #### L 500.3400 #### [facility] [address] [place], [address] Bilirubin [Mass/Vol] 0.50 mg/dL Normal 0.20-1.00 [facility] Comment on above: Order Comment: DR. Vinnie KLEIN ORDERED LIVER PANELDR. BRADEN ORDERED CBCD AND CMP Result Comment: For patients on eltrombopag therapy, use of Dimension [place] TBIL is not recommended. Performed By: #### L 500.3400 #### [facility] [address] [place], [address] BUN/CRE 11.5 RATIO Normal 10-20 [facility] Comment on above: Order Comment: DR. Vinnie KLEIN ORDERED LIVER PANELDR. BRADEN ORDERED CBCD AND CMP Performed By: #### L 500.3400 #### [facility] [address] [place], [address] CA,Total 9.5 mg/dL Normal 8.5-10.1 [facility] Comment on above: Order Comment: DR. Vinnie KLEIN ORDERED LIVER PANELDR. BRADEN ORDERED CBCD AND CMP Performed By: #### L 500.3400 #### [facility] [address] [place], [address] Chloride [Moles/Vol] 109 mmol/L High 98-107 [facility] Comment on above: Order Comment: DR. Vinnie KLEIN ORDERED LIVER PANELDR. BRADEN ORDERED CBCD AND CMP Performed By: #### L 500.3400 #### [facility] [address] [place], [address] CO2 [Moles/Vol] 26.0 mmol/L Normal 21.0-32.0 [facility] Comment on above: Order Comment: DR. Vinnie KLEIN ORDERED LIVER PANELDR. RBADEN ORDERED CBCD AND CMP Performed By: #### L 500.3400 #### [facility] [address] [place], [address] Creatinine [Mass/Vol] 1.39 mg/dL High 0.55-1.02 [facility] Comment on above: Order Comment: DR. Vinnie KLEIN ORDERED LIVER PANELDR. BRADEN ORDERED CBCD AND CMP Result Comment: The validity of the calculated GFR GFRAA in patients over 70 years has not been determined. Clinical correlation is essential. Performed By: #### L 500.3400 #### [facility] [address] [place], [address] EST GFR - AA 50 mL/min Low >60 [facility] Comment on above: Order Comment: DR. Vinnie KLEIN ORDERED LIVER PANELDR. BRADEN ORDERED CBCD AND CMP Result Comment: Afri can [place] GFR Calc Performed By: #### L 500.3400 #### [facility] [address] [place], [address] GAP 6 Normal 5-15 [facility] Comment on above: Order Comment: DR. Vinnie KLEIN ORDERED LIVER PANELDR. BRADEN ORDERED CBCD AND CMP Performed By: #### L 500.3400 #### [facility] [address] [place], [address] GFR/1.73 sq M.predicted among non-blacks MDRD (S/P/Bld) [Vol rate/Area] 41 mL/min/{1.73_m2} Low >60 [facility] Comment on above: Order Comment: DR. Vinnie KLEIN ORDERED LIVER PANELDR. BRADEN ORDERED CBCD AND CMP Result Comment: Non- GFR Calc Performed By: #### L 500.3400 #### [facility] [address] [place], [address] Globulin (S) [Mass/Vol] 3.3 g/dL Normal 2.2-4.2 [facility] Comment on above: Order Comment: DR. Vinnie KLEIN ORDERED LIVER PANELDR. BRADEN ORDERED CBCD AND CMP Performed By: #### L 500.3400 #### [facility] [address] [place], [address] Glucose [Mass/Vol] 109 mg/dL High 74-106 [facility] Comment on above: Order Comment: DR. Vinnie KLEIN ORDERED LIVER PANELDR. BRADEN ORDERED CBCD AND CMP Result Comment: Fast ing Glucose result from 100 to 125 mg/dL suggests IMPAIRED HOMEOSTASIS per A.D.A. criteria. Performed By: #### L 500.3400 #### [facility] [address] [place], [address] Potassium [Moles/Vol] 4.2 mmol/L Normal 3.5-5.1 [facility] Comment on above: Order Comment: DR. Vinnie KLEIN ORDERED LIVER PANELDR. BRADEN ORDERED CBCD AND CMP Performed By: #### L 500.3400 #### [facility] [address] [place], [address] Sodium [Moles/Vol] 141 mmol/L Normal 136-145 [facility] Comment on above: Order Comment: DR. Vinnie KLEIN ORDERED LIVER PANELDR. BRADEN ORDERED CBCD AND CMP Performed By: #### L 500.3400 #### [facility] [address] [place], [address] T PROT 6.9 g/dL Normal 6.4-8.2 [facility] Comment on above: Order Comment: DR. Vinnie KLEIN ORDERED LIVER PANELDR. BRADEN ORDERED CBCD AND CMP Performed By: #### L 500.3400 #### [facility] [address] [place], [address] Urea nitrogen [Mass/Vol] 16 mg/dL Normal 7-18 [facility] Comment on above: Order Comment: DR. Vinnie KLEIN ORDERED LIVER PANELDR. BRADEN ORDERED CBCD AND CMP Performed By: #### L 500.3400 #### [facility] [address] [place], [address] Eosinophil percentageOrdered By: Namrata Braden on 04-02-2024 Eosinophils/100 WBC (Bld) 6.5 % High 0-5 [facility] Erythrocyte distribution wid th ratioOrdered By: Namrata Braden on 04-02-2024 Erythrocyte distribution width (RBC) [Ratio] 12.4 % 11.6-14.6 [facility] Erythrocyte distribution wid th standard deviationOrdered By: Namrata Braden on 04-02-2024 Erythrocyte distribution width (RBC) [Entitic vol] 40.0 fL 35.1-43.9 [facility] Estimated glomerular filtrat ion rate (GFR) AmericanOrdered By: Namrata Braden on 04-02-2024 Estimated GFR (MDRD) Amer 50 mL/min Low >60 [facility] Comment on above: GFR Calc Glomerular filtration rate ( GFR) estimationOrdered By: Namrata Braden on 04-02-2024 Estimated GFR (MDRD) Non-Af Amer 41 mL/min Low >60 [facility] Comment on above: Non- GFR Calc Glucose measurementOrdered B y: Namrata Braden on 04-02-2024 Glucose [Mass/Vol] 109 mg/dL High 74-106 [facility] Comment on above: Fasting Glucose resu lt from 100 to 125 mg/dL suggests IMPAIRED HOMEOSTASIS per A.D.A. criteria. Hematocrit Auto (Bld) [Volum e fraction]Ordered By: Namrata Braden on 04-02-2024 Hematocrit (Bld) [Volume fraction] 42.3 % 37-47 [facility] Hemoglobin measurementOrdere d By: Namrata Braden on 04-02-2024 Hemoglobin (Bld) [Mass/Vol] 13.6 g/dL 12.0-15.0 [facility] Immature granulocytes/100 WB C Auto (Bld)Ordered By: Namrata Braden on 04-02-2024 Immature granulocytes/100 WBC (Bld) 0.300 % 0.0-0.9 [facility] Comment on above: IG% - Immature Granu locytes (promyelocytes, myelocytes and metamyelocytes) > 1% indicates that a LEFT SHIFT is Present. Laboratory - Chemistry and C hemistry - challengeOrdered By: Namrata Braden on 04-02-2024 AST [Catalytic activity/Vol] 23 U/L 15-37 [facility] Lymphocytes Auto (Unsp spec) [#/Vol]Ordered By: Namrata Braden on 04-02-2024 Lymphocytes (Bld) [#/Vol] 2.15 10*3/uL 0.83-4.51 [facility] Lymphocytes/100 WBC Auto (Un sp spec)Ordered By: Namrata Braden on 04-02-2024 Lymphocytes/100 WBC (Bld) 34.0 % 19-41 [facility] MCV (mean corpuscular volume ) determinationOrdered By: Namrata Braden on 04-02-2024 MCV (RBC) [Entitic vol] 88.3 fL 81-99 [facility] Mean corpuscular hemoglobin (MCH) determinationOrdered By: Namrata Braden on 04-02-2024 MCH (RBC) [Entitic mass] 28.4 pg 27.0-32.0 [facility] Mean corpuscular hemoglobin concentration (MCHC) determinationOrdered By: Namrata Braden on 04-02-2024 MCHC (RBC) [Mass/Vol] 32.2 g/dL 32-36 [facility] Mean platelet volume determi nationOrdered By: Namrata Braden on 04-02-2024 Platelet mean volume (Bld) [Entitic vol] 10.0 fL 6.2-12.0 [facility] Monocyte percentageOrdered B y: Namrata Braden on 04-02-2024 Monocytes/100 WBC (Bld) 8.5 % 0-10 [facility] Neutrophil percentageOrdered By: Namrata Braden on 04-02-2024 Neutrophils/100 WBC (Bld) 49.6 % 47-70 [facility] Nucleated red blood cell per centageOrdered By: Namrata Braden on 04-02-2024 Nucleated RBC/100 WBC (Bld) [Ratio] 0 % 0-5 [facility] Platelet countOrdered By: Beth Braden on 04-02-2024 Platelets (Bld) [#/Vol] 231 10*3/uL 150-450 [facility] Potassium measurementOrdered By: Namrata Braden on 04-02-2024 Potassium [Moles/Vol] 4.2 mmol/L 3.5-5.1 [facility] RBC Auto (Bld) [#/Vol]Ordere d By: Namrata Braden on 04-02-2024 RBC (Bld) [#/Vol] 4.79 10*6/uL 4.2-5.4 [facility] Serum anion gap measurementO rdered By: Namrata Braden on 04-02-2024 Anion gap [Moles/Vol] 6 mmol/L 5-15 [facility] Serum globulin measurementOr dered By: Namrata Braden on 04-02-2024 Globulin (S) [Mass/Vol] 3.3 g/dL 2.2-4.2 [facility] Serum or plasma alanine peralta otransferase (ALT) measurementOrdered By: Namrata Braden on 04-02-2024 ALT [Catalytic activity/Vol] 41 U/L 13-56 [facility] Serum or plasma albumin paty urement (mass/volume)Ordered By: Namrata Braden on 04-02-2024 Albumin [Mass/Vol] 3.6 g/dL 3.2-5.0 [facility] Serum or plasma alkaline elvia sphatase measurementOrdered By: Namrata Braden on 04-02-2024 ALP [Catalytic activity/Vol] 95 U/L 45-117 [facility] Serum or plasma calcium paty urement (mass/volume)Ordered By: Namrata Braden on 04-02-2024 Calcium [Mass/Vol] 9.5 mg/dL 8.5-10.1 [facility] Serum or plasma creatinine m easurement (mass/volume)Ordered By: Namrata Braden on 04-02-2024 Creatinine [Mass/Vol] 1.39 mg/dL High 0.55-1.02 [facility] Comment on above: The validity of the calculated GFR & GFRAA in patients over 70 years has not been determined. Clinical correlation is essential. Serum or plasma urea nitroge n measurement (mass/volume)Ordered By: Namrata Braden on 04-02-2024 Urea nitrogen [Mass/Vol] 16 mg/dL 7-18 [facility] Sodium levelOrdered By: Jose Braden on 04-02-2024 Sodium [Moles/Vol] 141 mmol/L 136-145 [facility] Total proteinOrdered By: Tom Braden on 04-02-2024 Protein [Mass/Vol] 6.9 g/dL 6.4-8.2 [facility] White blood cell (WBC) count Ordered By: Namrata Braden on 04-02-2024 WBC (Bld) [#/Vol] 6.3 10*3/uL 4.4-11.0 [facility] Liver Profileon 03-06-2024 Albumin [Mass/Vol] 3.7 g/dL Normal 3.2-5.0 [facility] Comment on above: Performed By: #### L 500.3400 #### [facility] [address] [place], [address] ALK P 93 U/L Normal 45-117 [facility] Comment on above: Performed By: #### L 500.3400 #### [facility] [address] [place], [address] ALT [Catalytic activity/Vol] 39 U/L Normal 13-56 [facility] Comment on above: Performed By: #### L 500.3400 #### [facility] [address] [place], [address] AST [Catalytic activity/Vol] 20 U/L Normal 15-37 [facility] Comment on above: Performed By: #### L 500.3400 #### [facility] [address] [place], [address] Bilirubin [Mass/Vol] 0.40 mg/dL Normal 0.20-1.00 [facility] Comment on above: Result Comment: For patients on eltrombopag therapy, use of Dimension [place] TBIL is not recommended. Performed By: #### L 500.3400 #### [facility] [address] [place], [address] Bilirubin.direct [Mass/Vol] 0.10 mg/dL Normal 0.00-0.30 [facility] Comment on above: Performed By: #### L 500.3400 #### [facility] [address] [place], [address] Globulin (S) [Mass/Vol] 3.2 g/dL Normal 2.2-4.2 [facility] Comment on above: Performed By: #### L 500.3400 #### [facility] [address] [place], [address] T PROT 6.9 g/dL Normal 6.4-8.2 [facility] Comment on above: Performed By: #### L 500.3400 #### [facility] [address] [place], [place], [address] Internal Medicine Office Vis iton 02-17-2024 Internal Medicine Office Visit [facility] [address] [place] [address] [place] [address] OFFICE VISIT Date of Service: 02/17/24 MR#: [id number] Acct: [id number] Name: ISI GENAO Rep #: [id number] : 1965 Provider: Dr. 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 Normal [facility] No Panel InformationOrdered By: Aaron Matthews on 06-13-2023 Urine Microalbumin/Creatinine Ratio 23.4 mg/g CRE <30 [facility] Thin prep Papanicolaou smear with manual screeningOrdered By: Aaron Matthews on 06-13-2023 Protein (U) [Mass/Vol] 10.9 mg/dL 0.0-11.8 [facility] Thin prep Papanicolaou smear with manual screening 27.2 mg/L NO RANGE EST. [facility] Urine creatinine measurement (mass/volume)Ordered By: Aaron Matthews on 06-13-2023 Creatinine (U) [Mass/Vol] 116.00 mg/dL NO RANGE EST. [facility] Urine protein/creatinine mas s ratioOrdered By: Aaron Matthews on 06-13-2023 Protein/Creatinine (U) [Mass ratio] 94 mg/g CRE 0-200 [facility] Basophil percentageOrdered B y: Aaron Matthews on 06-10-2023 Basophil percentage 3.2 mg/dL 2.5-4.9 [facility] Chloride [Moles/Vol] 110 mmol/L 98-107 [facility] Glucose [Mass/Vol] 75 mg/dL 74-106 [facility] Hemoglobin (Bld) [Mass/Vol] 13.6 g/dL 12.0-15.0 [facility] Potassium [Moles/Vol] 4.1 mmol/L 3.5-5.1 [facility] Sodium [Moles/Vol] 141 mmol/L 136-145 [facility] WBC (Bld) [#/Vol] 10.2 10*3/uL 4.4-11.0 [facility] Determination of erythrocyte mean corpuscular volume (MCV)Ordered By: Aaron Matthews on 06-10-2023 MCV (RBC) [Entitic vol] 88.5 fL 81-99 [facility] Erythrocyte distribution wid th ratioOrdered By: Aaron Cassie on 06-10-2023 Erythrocyte distribution width (RBC) [Ratio] 13.2 % 11.6-14.6 [facility] Erythrocyte distribution wid th standard deviationOrdered By: [facility] Cassie on 06-10-2023 Erythrocyte distribution width (RBC) [Entitic vol] 42.9 fL 35.1-43.9 [facility] Hematocrit Auto (Bld) [Volum e fraction]Ordered By: [facility] Cassie on 06-10-2023 Hematocrit (Bld) [Volume fraction] 43.1 % 37-47 [facility] - Chemistry and C hemistry - challengeOrdered By: [facility] Cassie on 06-10-2023 CO2 [Moles/Vol] 26.0 mmol/L 21.0-32.0 [facility] Urea nitrogen/Creatinine [Mass ratio] 21.7 mg/mg 10-20 [facility] - Hematology and Cell countsOrdered By: Aaron Matthews on 06-10-2023 MCH (RBC) [Entitic mass] 27.9 pg 27.0-32.0 [facility] MCHC (RBC) [Mass/Vol] 31.6 g/dL 32-36 [facility] Platelet mean volume (Bld) [Entitic vol] 9.8 fL 6.2-12.0 [facility] Platelets (Bld) [#/Vol] 271 10*3/uL 150-450 [facility] No Panel InformationOrdered By: Aaron Matthews on 06-10-2023 Estimated GFR (MDRD) Amer 63 mL/min >60 [facility] Comment on above: GFR Calc Estimated GFR (MDRD) Non-Af Amer 52 mL/min >60 [facility] Comment on above: Non- GFR Calc Parathyroid Hormone (Intact) 79.3 pg/mL 18.4-80.1 [facility] Vitamin D 25-Hydroxy 35.4 ng/mL [facility] Comment on above: Vitamin D 25(OH) Sta tus Range Deficiency <20 ng/mL (50nmol/L) Insufficiency 20 - 30 ng/mL (50 - 75 nmol/L) Sufficiency 30 - 100 ng/mL (75 - 250 nmol/L) Toxicity >100 ng/mL (>250 nmol/L) RBC Auto (Bld) [#/Vol]Ordere d By: Aaron Matthews on 06-10-2023 RBC (Bld) [#/Vol] 4.87 10*6/uL 4.2-5.4 [facility] Serum or plasma calcium paty urement (mass/volume)Ordered By: Aaron Matthews on 06-10-2023 Calcium [Mass/Vol] 8.9 mg/dL 8.5-10.1 [facility] Serum or plasma creatinine m easurement (mass/volume)Ordered By: Aaron Matthews on 06-10-2023 Creatinine [Mass/Vol] 1.15 mg/dL 0.55-1.02 [facility] Comment on above: The validity of the calculated GFR & GFRAA in patients over 70 years has not been determined. Clinical correlation is essential. Serum or plasma urea nitroge n measurement (mass/volume)Ordered By: Aaron Matthews on 06-10-2023 Urea nitrogen [Mass/Vol] 25 mg/dL 7-18 [facility] Thin prep Papanicolaou smear with manual screeningOrdered By: Aaron Matthews on 06-10-2023 Thin prep Papanicolaou smear with manual screening 3.6 g/dL 3.2-5.0 [facility] DBT Breast - bilateral scree ningon 06-01-2023 [facility] - Hematology and Cell countson 04-07-2023 HbA1c (Bld) [Mass fraction] 5.7 % 4.2-6.3 [facility] Absolute lymphocyte countOrd ered By: Dr. Salamanca on 09-20-2022 Lymphocytes Auto (Unsp spec) [#/Vol] 2.60 10*3/uL 0.83-4.51 [facility] Basophil percentageOrdered B y: Dr. Salamanca on 09-20-2022 Basophil percentage 3.8 mg/dL 2.5-4.9 [facility] Basophils/100 WBC (Bld) 0.9 % 0-1 [facility] Bilirubin [Mass/Vol] 0.40 mg/dL 0.20-1.00 [facility] Comment on above: For patients on eltr ombopag therapy, use of Dimension [place] TBIL is not recommended. Chloride [Moles/Vol] 105 mmol/L 98-107 [facility] Cholesterol [Mass/Vol] 151 mg/dL <200 [facility] Comment on above: <200 mg/dL Desirable 200-240 mg/dL Borderline >240 mg/dL High Risk Eosinophils/100 WBC (Bld) 5.7 % 0-5 [facility] Glucose [Mass/Vol] 126 mg/dL 74-106 [facility] Comment on above: Fasting Glucose resu lt greater than or equal to 126 mg/dL suggests DIABETES MELLITUS per A.D.A. criteria. Neutrophils (Bld) [#/Vol] 5.1 10*3/uL 2.0-7.7 [facility] Neutrophils/100 WBC (Bld) 57.0 % 47-70 [facility] Potassium [Moles/Vol] 4.1 mmol/L 3.5-5.1 [facility] Protein [Mass/Vol] 7.1 g/dL 6.4-8.2 [facility] Sodium [Moles/Vol] 138 mmol/L 136-145 [facility] Triglyceride [Mass/Vol] 127 mg/dL <199 [facility] Comment on above: The drugs N-Acetylcy steine and Metamizole may falsely depress this assay.Serum Triglycerides Reference Interval Normal <150 mg/dL Borderline high 150 - 199 mg/dL High 200 - 499 mg/dL Very High > or = 500 mg/dL WBC (Bld) [#/Vol] 9.0 10*3/uL 4.4-11.0 [facility] Blood erythrocytes count (nu mber/volume)Ordered By: Dr. Salamanca on 09-20-2022 RBC (Bld) [#/Vol] 5.15 10*6/uL 4.2-5.4 [facility] Blood hemoglobin measurement (mass/volume)Ordered By: Dr. Salamanca on 09-20-2022 Hemoglobin (Bld) [Mass/Vol] 14.4 g/dL 12.0-15.0 [facility] Blood lymphocytes/100 leukoc ytesOrdered By: Dr. Salamanca on 09-20-2022 Lymphocytes/100 WBC (Bld) 29.0 % 19-41 [facility] Blood monocytes/100 leukocyt esOrdered By: Dr. Salamanca on 09-20-2022 Monocytes/100 WBC (Bld) 7.0 % 0-10 [facility] Blood platelet mean volumeOr dered By: Dr. Salamanca on 09-20-2022 Platelet mean volume (Bld) [Entitic vol] 9.6 fL 6.2-12.0 [facility] Determination of erythrocyte mean corpuscular volume (MCV)Ordered By: Dr. Salamanca on 09-20-2022 MCV (RBC) [Entitic vol] 88.9 fL 81-99 [facility] Hematocrit Auto (Bld) [Volum e fraction]Ordered By: Dr. Salamanca on 09-20-2022 Hematocrit (Bld) [Volume fraction] 45.8 % 37-47 [facility] Laboratory - Chemistry and C hemistry - challengeOrdered By: Dr. Salamanca on 09-20-2022 ALP [Catalytic activity/Vol] 126 U/L 45-117 [facility] ALT [Catalytic activity/Vol] 39 U/L 13-56 [facility] CO2 [Moles/Vol] 25.0 mmol/L 21.0-32.0 [facility] Globulin (S) [Mass/Vol] 3.6 g/dL 2.2-4.2 [facility] Urea nitrogen/Creatinine [Mass ratio] 16.7 mg/mg 10-20 [facility] Laboratory - Hematology and Cell countsOrdered By: Dr. Salamanca on 09-20-2022 Erythrocyte distribution width (RBC) [Entitic vol] 44.8 fL 35.1-43.9 [facility] Erythrocyte distribution width (RBC) [Ratio] 13.8 % 11.6-14.6 [facility] Immature granulocytes/100 WBC (Bld) 0.400 % 0.0-0.9 [facility] Comment on above: IG% - Immature Granu locytes (promyelocytes, myelocytes and metamyelocytes) > 1% indicates that a LEFT SHIFT is Present. MCH (RBC) [Entitic mass] 28.0 pg 27.0-32.0 [facility] Nucleated RBC/100 WBC (Bld) [Ratio] 0 % 0-5 [facility] MCHC Auto (RBC) [Mass/Vol]Or dered By: Dr. Salamanca on 09-20-2022 MCHC (RBC) [Mass/Vol] 31.4 g/dL 32-36 [facility] No Panel InformationOrdered By: Dr. Salamanca on 09-20-2022 Urine Microalbumin/Creatinine Ratio 32.9 mg/g CRE <30 [facility] Estimated GFR (MDRD) Amer 67 mL/min >60 [facility] Comment on above: GFR Calc Estimated GFR (MDRD) Non-Af Amer 56 mL/min >60 [facility] Comment on above: Non- GFR Calc Platelets bldOrdered By: Dr. Salamanca on 09-20-2022 Platelets (Bld) [#/Vol] 274 10*3/uL 150-450 [facility] Serum or plasma albumin paty urement (mass/volume)Ordered By: Dr. Salamanca on 09-20-2022 Albumin [Mass/Vol] 3.5 g/dL 3.2-5.0 [facility] Serum or plasma albumin/glob ulin mass ratioOrdered By: Dr. Salamanca on 09-20-2022 Albumin/Globulin [Mass ratio] 1.0 {ratio} 0.9-2.4 [facility] Serum or plasma calcium paty urement (mass/volume)Ordered By: Dr. Salamanca on 09-20-2022 Calcium [Mass/Vol] 9.3 mg/dL 8.5-10.1 [facility] Serum or plasma cholesterol in HDL measurement (mass/volume)Ordered By: Dr. Salamanca on 09-20-2022 Cholesterol in HDL [Mass/Vol] 38 mg/dL >40 [facility] Comment on above: The drugs N-Acetylcy steine and Metamizole may falsely depress this assay. Reference Range HDL <40 mg/dL Low HDL Cholesterol HDL >or= 60 mg/dL High HDL Cholesterol Serum or plasma cholesterol in VLDL measurement (mass/volume)Ordered By: Dr. Salamanca on 09-20-2022 Cholesterol in VLDL [Mass/Vol] 25 mg/dL 5-40 [facility] Serum or plasma creatinine m easurement (mass/volume)Ordered By: Dr. Salamanca on 09-20-2022 Creatinine [Mass/Vol] 1.08 mg/dL 0.55-1.02 [facility] Comment on above: The validity of the calculated GFR & GFRAA in patients over 70 years has not been determined. Clinical correlation is essential. Serum or plasma low density lipoprotein (LDL) cholesterol measurement (mass/volume)Ordered By: Dr. Salamanca on 09-20-2022 Cholesterol in LDL [Mass/Vol] 88 mg/dL 0-130 [facility] Serum or plasma urea nitroge n measurement (mass/volume)Ordered By: Dr. Salamanca on 09-20-2022 Urea nitrogen [Mass/Vol] 18 mg/dL 7-18 [facility] Thin prep Papanicolaou smear with manual screeningOrdered By: Dr. Salamanca on 09-20-2022 Thin prep Papanicolaou smear with manual screening 15.9 mg/L NO RANGE EST. [facility] Thin prep Papanicolaou smear with manual screening 23 U/L 15-37 [facility] Thin prep Papanicolaou smear with manual screening 8 5-15 [facility] Urine creatinine measurement (mass/volume)Ordered By: Dr. Salamanca on 09-20-2022 Creatinine (U) [Mass/Vol] 48.40 mg/dL NO RANGE EST. [facility] Urine protein measurement (m ass/volume)Ordered By: Dr. Salamanca on 09-20-2022 Protein (U) [Mass/Vol] mg/dL 0.0-11.8 [facility] Urine protein/creatinine mas s ratioOrdered By: Dr. Salamanca on 09-20-2022 Protein/Creatinine (U) [Mass ratio] 112 mg/g CRE 0-200 [facility] Whole blood hemoglobin A1c/t otal hemoglobin ratio (mass fraction)Ordered By: Dr. Salamanca on 09-20-2022 HbA1c (Bld) [Mass fraction] 5.7 % 3.8-5.6 [facility] Comment on above: Normal < 5.7 % Predi abetic 5.7 - 6.4 % Diabetic >or= 6.5 % Please note range changes. ARMANDO SCREENINGon 05-24-2022 [facility] Absolute lymphocyte counton 04-02-2022 Lymphocytes Auto (Unsp spec) [#/Vol] 2.93 10*3/uL 0.83-4.51 [facility] Work Phone: Basophil percentageon 2021 Basophils/100 WBC (Bld) 0.7 % 0-1 [facility] Work Phone: Eosinophils/100 WBC (Bld) 4.7 % 0-5 [facility] Work Phone: Neutrophils (Bld) [#/Vol] 5.9 10*3/uL 2.0-7.7 [facility] Work Phone: Neutrophils/100 WBC (Bld) 56.8 % 47-70 [facility] Work Phone: WBC (Bld) [#/Vol] 10.3 10*3/uL 4.4-11.0 [facility] Work Phone: Blood erythrocytes count (nu mber/volume)on 04-02-2022 RBC (Bld) [#/Vol] 4.74 10*6/uL 4.2-5.4 [facility] Work Phone: Blood hemoglobin measurement (mass/volume)on 04-02-2022 Hemoglobin (Bld) [Mass/Vol] 13.2 g/dL 12.0-15.0 [facility] Work Phone: Blood lymphocytes/100 leukoc yteson 04-02-2022 Lymphocytes/100 WBC (Bld) 28.4 % 19-41 [facility] Work Phone: Blood monocytes/100 leukocyt eson 04-02-2022 Monocytes/100 WBC (Bld) 8.9 % 0-10 [facility] Work Phone: Blood platelet mean volumeon 04-02-2022 Platelet mean volume (Bld) [Entitic vol] 9.7 fL 6.2-12.0 [facility] Work Phone: Determination of erythrocyte mean corpuscular volume (MCV)on 04-02-2022 MCV (RBC) [Entitic vol] 89.5 fL 81-99 [facility] Work Phone: Hematocrit Auto (Bld) [Volum e fraction]on 04-02-2022 Hematocrit (Bld) [Volume fraction] 42.4 % 37-47 [facility] Work Phone: Laboratory - Hematology and Cell countson 04-02-2022 Erythrocyte distribution width (RBC) [Entitic vol] 42.4 fL 35.1-43.9 [facility] Work Phone: Erythrocyte distribution width (RBC) [Ratio] 13.1 % 11.6-14.6 [facility] Work Phone: Immature granulocytes/100 WBC (Bld) 0.500 % 0.0-0.9 [facility] Work Phone: Comment on above: IG% - Immature Granu locytes (promyelocytes, myelocytes and metamyelocytes) > 1% indicates that a LEFT SHIFT is Present. MCH (RBC) [Entitic mass] 27.8 pg 27.0-32.0 [facility] Work Phone: Nucleated RBC/100 WBC (Bld) [Ratio] 0 % 0-5 [facility] Work Phone: Laboratory - Microbiology an d Antimicrobial susceptibilityon 04-02-2022 SARS-CoV-2 (COVID-19) RNA SIMONA+probe Ql (Unsp spec) Not detected Not Detect [facility] Work Phone: Comment on above: Normal Reference Ran ge: Not DetectedMethod:(RT-PCR) real-time reverse transcriptase PCRLuminex [employer] Instrument*The Food and Drug Administration (FDA) has issued an Emergency Use Authorization (EAU) for the BILLY SARS-CoV-2 Assay for the rapid detection of the virus that causes COVID-19. This test has been validated, but the FDAs independent review of this validation is pending.*Negative [...] 04-02-2022 MCHC (RBC) [Mass/Vol] 31.1 g/dL 32-36 [facility] Work Phone: Platelets bldon 04-02-2022 Platelets (Bld) [#/Vol] 244 10*3/uL 150-450 [facility] Work Phone: Absolute lymphocyte counton 03-24-2022 Lymphocytes Auto (Unsp spec) [#/Vol] 2.64 10*3/uL 0.83-4.51 [facility] Work Phone: Basophil percentageon 2021 Basophils/100 WBC (Bld) 0.7 % 0-1 [facility] Work Phone: Bilirubin [Mass/Vol] 0.40 mg/dL 0.20-1.00 [facility] Work Phone: Comment on above: For patients on eltr ombopag therapy, use of Dimension [place] TBIL is not recommended. Chloride [Moles/Vol] 107 mmol/L 98-107 [facility] Work Phone: Eosinophils/100 WBC (Bld) 3.7 % 0-5 [facility] Work Phone: Glucose [Mass/Vol] 83 mg/dL 74-106 [facility] Work Phone: Neutrophils (Bld) [#/Vol] 4.8 10*3/uL 2.0-7.7 [facility] Work Phone: Neutrophils/100 WBC (Bld) 55.5 % 47-70 [facility] Work Phone: Potassium [Moles/Vol] 4.4 mmol/L 3.5-5.1 [facility] Work Phone: Protein [Mass/Vol] 7.1 g/dL 6.4-8.2 [facility] Work Phone: Sodium [Moles/Vol] 138 mmol/L 136-145 [facility] Work Phone: WBC (Bld) [#/Vol] 8.6 10*3/uL 4.4-11.0 [facility] Work Phone: Blood erythrocytes count (nu mber/volume)on 03-24-2022 RBC (Bld) [#/Vol] 4.83 10*6/uL 4.2-5.4 [facility] Work Phone: Blood hemoglobin measurement (mass/volume)on 03-24-2022 Hemoglobin (Bld) [Mass/Vol] 13.6 g/dL 12.0-15.0 [facility] Work Phone: Blood lymphocytes/100 leukoc yteson 03-24-2022 Lymphocytes/100 WBC (Bld) 30.7 % 19-41 [facility] Work Phone: Blood monocytes/100 leukocyt eson 03-24-2022 Monocytes/100 WBC (Bld) 9.2 % 0-10 [facility] Work Phone: Blood platelet mean volumeon 03-24-2022 Platelet mean volume (Bld) [Entitic vol] 9.6 fL 6.2-12.0 [facility] Work Phone: Determination of erythrocyte mean corpuscular volume (MCV)on 03-24-2022 MCV (RBC) [Entitic vol] 89.2 fL 81-99 [facility] Work Phone: Hematocrit Auto (Bld) [Volum e fraction]on 03-24-2022 Hematocrit (Bld) [Volume fraction] 43.1 % 37-47 [facility] Work Phone: Laboratory - Chemistry and C hemistry - challengeon 03-24-2022 ALP [Catalytic activity/Vol] 99 U/L 45-117 [facility] Work Phone: ALT [Catalytic activity/Vol] 33 U/L 13-56 [facility] Work Phone: CO2 [Moles/Vol] 25.0 mmol/L 21.0-32.0 [facility] Work Phone: Globulin (S) [Mass/Vol] 3.6 g/dL 2.2-4.2 [facility] Work Phone: Urea nitrogen/Creatinine [Mass ratio] 23.3 mg/mg 10-20 [facility] Work Phone: Laboratory - Hematology and Cell countson 03-24-2022 Erythrocyte distribution width (RBC) [Entitic vol] 41.3 fL 35.1-43.9 [facility] Work Phone: Erythrocyte distribution width (RBC) [Ratio] 12.7 % 11.6-14.6 [facility] Work Phone: Immature granulocytes/100 WBC (Bld) 0.200 % 0.0-0.9 [facility] Work Phone: Comment on above: IG% - Immature Granu locytes (promyelocytes, myelocytes and metamyelocytes) > 1% indicates that a LEFT SHIFT is Present. MCH (RBC) [Entitic mass] 28.2 pg 27.0-32.0 [facility] Work Phone: Nucleated RBC/100 WBC (Bld) [Ratio] 0 % 0-5 [facility] Work Phone: MCHC Auto (RBC) [Mass/Vol]on 03-24-2022 MCHC (RBC) [Mass/Vol] 31.6 g/dL 32-36 [facility] Work [facility]: No Panel Informationon 03-24 Estimated GFR (MDRD) Amer 79 mL/min >60 [facility] Work Phone: Comment on above: GFR Calc Estimated GFR (MDRD) Non-Af Amer 65 mL/min >60 [facility] Work Phone: Comment on above: Non- GFR Calc Platelets bldon 03-24-2022 Platelets (Bld) [#/Vol] 337 10*3/uL 150-450 [facility] Work Phone: Serum or plasma albumin paty urement (mass/volume)on 03-24-2022 Albumin [Mass/Vol] 3.5 g/dL 3.2-5.0 [facility] Work Phone: Serum or plasma albumin/glob ulin mass ratioon 03-24-2022 Albumin/Globulin [Mass ratio] 1.0 {ratio} 0.9-2.4 [facility] Work Phone: Serum or plasma calcium paty urement (mass/volume)on 03-24-2022 Calcium [Mass/Vol] 9.1 mg/dL 8.5-10.1 [facility] Work Phone: Serum or plasma creatinine m easurement (mass/volume)on 03-24-2022 Creatinine [Mass/Vol] 0.94 mg/dL 0.55-1.02 [facility] Work Phone: Comment on above: The validity of the calculated GFR & GFRAA in patients over 70 years has not been determined. Clinical correlation is essential. Serum or plasma urea nitroge n measurement (mass/volume)on 03-24-2022 Urea nitrogen [Mass/Vol] 22 mg/dL 7-18 [facility] Work Phone: Thin prep Papanicolaou smear with manual screeningon 03-24-2022 Thin prep Papanicolaou smear with manual screening 14 U/L 15-37 [facility] Work Phone: Thin prep Papanicolaou smear with manual screening 6 5-15 [facility] Work Phone: Basophil percentageon 2021 Bilirubin [Mass/Vol] 0.60 mg/dL 0.20-1.00 [facility] Work Phone: Comment on above: For patients on eltr ombopag therapy, use of Dimension [place] TBIL is not recommended. Chloride [Moles/Vol] 104 mmol/L 98-107 [facility] Work Phone: Glucose [Mass/Vol] 105 mg/dL 74-106 [facility] Work Phone: Comment on above: Fasting Glucose resu lt from 100 to 125 mg/dL suggests IMPAIRED HOMEOSTASIS per A.D.A. criteria. Potassium [Moles/Vol] 4.1 mmol/L 3.5-5.1 [facility] Work Phone: Protein [Mass/Vol] 7.4 g/dL 6.4-8.2 [facility] Work Phone: Sodium [Moles/Vol] 139 mmol/L 136-145 [facility] Work Phone: Laboratory - Chemistry and C hemistry - challengeon 10-21-2021 ALP [Catalytic activity/Vol] 123 U/L 45-117 [facility] Work Phone: ALT [Catalytic activity/Vol] 30 U/L 13-56 [facility] Work Phone: CO2 [Moles/Vol] 27.0 mmol/L 21.0-32.0 [facility] Work Phone: Globulin (S) [Mass/Vol] 3.5 g/dL 2.2-4.2 [facility] Work Phone: Urea nitrogen/Creatinine [Mass ratio] 20.3 mg/mg 10- [facility] Work Phone: No Panel Informationon 10-21 Estimated GFR (MDRD) Amer 61 mL/min >60 [facility] Work Phone: Comment on above: GFR Calc Estimated GFR (MDRD) Non-Af Amer 50 mL/min >60 [facility] Work Phone: Comment on above: Non- GFR Calc Serum or plasma albumin paty urement (mass/volume)on 10-21-2021 Albumin [Mass/Vol] 3.9 g/dL 3.2-5.0 [facility] Work Phone: Serum or plasma albumin/glob ulin mass ratioon 10-21-2021 Albumin/Globulin [Mass ratio] 1.1 {ratio} 0.9-2.4 [facility] Work Phone: Serum or plasma calcium paty urement (mass/volume)on 10-21-2021 Calcium [Mass/Vol] 9.5 mg/dL 8.5-10.1 [facility] Work Phone: Serum or plasma creatinine m easurement (mass/volume)on 10-21-2021 Creatinine [Mass/Vol] 1.18 mg/dL 0.55-1.02 [facility] Work Phone: Comment on above: The validity of the calculated GFR & GFRAA in patients over 70 years has not been determined. Clinical correlation is essential. Serum or plasma urea nitroge n measurement (mass/volume)on 10-21-2021 Urea nitrogen [Mass/Vol] 24 mg/dL 7-18 [facility] Work Phone: Thin prep Papanicolaou smear with manual screeningon 10-21-2021 Thin prep Papanicolaou smear with manual screening 18 U/L 15-37 [facility] Work Phone: Thin prep Papanicolaou smear with manual screening 8 5-15 [facility] Work Phone: Basophil percentageon 2021 Cholesterol [Mass/Vol] 147 mg/dL <200 [facility] Work Phone: Comment on above: <200 mg/dL Desirable 200-240 mg/dL Borderline >240 mg/dL High Risk Triglyceride [Mass/Vol] 115 mg/dL <199 [facility] Work Phone: Comment on above: The drugs N-Acetylcy steine and Metamizole may falsely depress this assay.Serum Triglycerides Reference Interval Normal <150 mg/dL Borderline high 150 - 199 mg/dL High 200 - 499 mg/dL Very High > or = 500 mg/dL Serum or plasma cholesterol in HDL measurement (mass/volume)on 09-22-2021 Cholesterol in HDL [Mass/Vol] 42 mg/dL >40 [facility] Work Phone: Comment on above: The drugs N-Acetylcy steine and Metamizole may falsely depress this assay. Reference Range HDL <40 mg/dL Low HDL Cholesterol HDL >or= 60 mg/dL High HDL Cholesterol Serum or plasma cholesterol in VLDL measurement (mass/volume)on 09-22-2021 Cholesterol in VLDL [Mass/Vol] 23 mg/dL 5-40 [facility] Work Phone: Serum or plasma complement C 3 measurement (mass/volume)on 09-22-2021 Complement C3 [Mass/Vol] 167 mg/dL 82-167 [facility] Work Phone: Comment on above: Performed at: [address] [id number] Director: Ismael Keith PhD, Phone: [phone] Serum or plasma complement C 4 measurement (mass/volume)on 09-22-2021 Complement C4 [Mass/Vol] 50 mg/dL 12-38 [facility] Work Phone: Serum or plasma low density lipoprotein (LDL) cholesterol measurement (mass/volume)on 09-22-2021 Cholesterol in LDL [Mass/Vol] 82 mg/dL 0-130 [facility] Work Phone: Office Visit: Post Op Colono scopyon 02-28-2017 Documentation of current medications (procedure) Done Invalid Interpretation Code [facility] [employer] Work Phone: Tobacco smoking status NHIS Never Invalid Interpretation Code [facility] [employer] Work Phone: Tobacco use CPHS Never smoker Invalid Interpretation Code [facility] [employer] Work Phone: Microbiology: Ova and Parasi shahram [id number] 02-21-2017 OP . Invalid Interpretation Code [facility] [employer] Work Phone: Office Visit: Post Op Colono scopyon 02-18-2017 Colonoscopy (procedure) Abnormal Invalid Interpretation Code [facility] [employer] Work Phone: CBC WITH AUTO DIFFon 01-15- 017 Basophils Auto #/vol (Bld) 0.1 10 3/uL Normal 0.0-0.2 [facility] Comment on above: Performed By: #### C MP, CBC ####Main Lab - [id number] [place], [place] [address] Basophils/100 WBC Auto (Bld) 0.7 % Normal 0.0-1.0 [facility] Comment on above: Performed By: #### C MP, CBC ####Main Lab - [id number] [place], [place] [address] Eosinophils 0.3 10 3/uL Normal 0.0-0.7 [facility] Comment on above: Performed By: #### C MP, CBC ####Main Lab - [id number] [place], [place] [address] Eosinophils/100 leukocytes 3.4 % Normal 0.0-5.0 [facility] Comment on above: Performed By: #### C MP, CBC ####Main Lab - [id number] [place], [place] [address] Erythrocyte distribution width Auto Ratio (RBC) 12.8 % Normal 11.5-14.0 [facility] Comment on above: Performed By: #### C MP, CBC ####Main Lab - [id number] [place] [address] Erythrocytes (RBC) 5.32 x10 6/uL High 3.89-5.30 [facility] Comment on above: Performed By: #### C MP, CBC ####Main Lab - [id number] [place] [address] Hematocrit (HCT) 46.4 % High 34.8-45.0 [facility] Comment on above: Performed By: #### C MP, CBC ####Main Lab - [id number] [place] [address] Hemoglobin mass conc (Bld) 16.1 g/dL High 11.6-14.9 [facility] Comment on above: Performed By: #### C MP, CBC ####Main Lab - [id number] [place] [address] Lymphocytes 1.6 10 3/uL Normal 1.0-3.5 [facility] Comment on above: Performed By: #### C MP, CBC ####Main Lab - [id number] [place] [address] Lymphocytes/100 leukocytes 15.4 % Low 24.0-44.0 [facility] Comment on above: Performed By: #### C MP, CBC ####Main Lab - [id number] [place] [address] MCH 30.2 pg Normal 27.0-31.0 [facility] Comment on above: Performed By: #### C MP, CBC ####Main Lab - [id number] [place] [address] MCHC mass conc (RBC) 34.6 g/dL Normal 32.0-36.0 [facility] Comment on above: Performed By: #### C MP, CBC ####Main Lab - [id number] [place] [address] MCV 87.3 fL Normal 78.0-100.0 [facility] Comment on above: Performed By: #### C MP, CBC ####Main Lab - [id number] [place] [address] Monocytes 0.8 10 3/uL Normal 0.2-0.8 [facility] Comment on above: Performed By: #### C MP, CBC ####Main Lab - [id number] [place], [place] [address] Monocytes/100 leukocytes 7.5 % Normal 1.7-9.3 [facility] Comment on above: Performed By: #### C MP, CBC ####Main Lab - [id number] [place], [place] [address] Neutrophils 7.4 10 3/uL High 1.5-6.7 [facility] Comment on above: Performed By: #### C MP, CBC ####Main Lab - [id number] [place], [place] [address] Platelet mean volume (PMV) 7.9 fL Normal 6.0-9.5 [facility] Comment on above: Performed By: #### C MP, CBC ####Main Lab - [id number] [place] [id number] Platelets 253 10 3/uL Normal 150-450 [facility] Comment on above: Performed By: #### C MP, CBC ####Main Lab - [id number] [place], [place] [address] Segmented Neutrophils/100 leukocytes 73.0 % High 36.0-66.0 [facility] Comment on above: Performed By: #### C MP, CBC ####Main Lab - [id number] [place] [id number] WBC (Leukocytes) 10.1 10 3/uL Normal 4.0-10.5 [facility] Comment on above: Performed By: #### C MP, CBC ####Main Lab - [id number] [place], [place] [address] COMPREHENSIVE METABOLIC PANE Ze 01-15-2017 Albumin 3.6 g/dL Low 3.9-5.0 [facility] Comment on above: Performed By: #### C MP ####Main Lab - [id number] [place] [id number] Albumin/Globulin Ratio 1.3 {ratio} Normal 1.1-1.8 [facility] Comment on above: Performed By: #### C MP ####Main Lab - [address] [address] Alkaline phosphatase (ALP) 56 U/L Normal 43-122 [facility] Comment on above: Performed By: #### C MP ####Main Lab - [address] [address] ALT/SGPT 17 U/L Normal 7-56 [facility] Comment on above: Performed By: #### C MP ####Main Lab - [id number] [place], [place] [address] Anion gap 14 mmol/L Normal 9-18 [facility] Comment on above: Performed By: #### C MP ####Main Lab - [id number] [place] [id number] AST/SGOT 20 U/L Normal 8-39 [facility] Comment on above: Result Comment: Spec imen Slightly Hemolyzed. Performed By: #### C MP ####Main Lab - [id number] [place], [place] [address] Bilirubin (total) 0.5 mg/dL Normal 0.2-1.3 [facility] Comment on above: Performed By: #### C MP ####Main Lab - [address] [address] BUN (urea nitrogen) 13 mg/dL Normal 7-21 [facility] Comment on above: Performed By: #### C MP ####Main Lab - [place] [address] BUN/Creatinine Ratio 14.9 Ratio Normal 5.0-42.0 [facility] Comment on above: Performed By: #### C MP ####Main Lab - [id number] [place] [address] Calcium 8.9 mg/dL Normal 8.4-10.2 [facility] Comment on above: Performed By: #### C MP ####Main Lab - [address] [address] Chloride 110 mmol/L High 98-107 [facility] Comment on above: Performed By: #### C MP ####Main Lab - [id number] [place], [place] [address] CO2 21 mmol/L Low 22-31 [facility] Comment on above: Performed By: #### C MP ####Main Lab - [id number] [place] [address] Creatinine 0.87 mg/dL Normal 0.80-1.30 [facility] Comment on above: Performed By: #### C MP ####Main Lab - [id number] [place], [place] [address] eGFR (non-black) mL/min/{1.73_m2} Normal So [facility] Comment on above: Performed By: #### C MP ####Main Lab - [id number] [place] [address] Globulin 2.8 g/dL Normal [facility] Comment on above: Performed By: #### C MP ####Main Lab - [id number] [place] [address] Glucose mass conc 79 mg/dL Normal 70-99 [facility] Comment on above: Result Comment: The glucose range is based on recommendations from the[facility] Diabetes Association for fasting blood glucoserange. Performed By: #### C MP ####Main Lab - [id number] [place] [address] Potassium molar conc 4.4 mmol/L Normal 3.6-5.0 [facility] Comment on above: Result Comment: Spec imen Slightly Hemolyzed. Performed By: #### C MP ####Main Lab - [id number] [place] [address] Protein 6.4 g/dL Normal 6.3-8.2 [facility] Comment on above: Performed By: #### C MP ####Main Lab - [id number] [place] [address] Sodium 141 mmol/L Normal 137-145 [facility] Comment on above: Performed By: #### C MP ####Main Lab - [id number] [place] [address] Age 51 Years Normal [facility] Comment on above: Performed By: #### C MP ####Main Lab - [id number] [place] [address] Age 51 Years Normal [facility] Comment on above: Result Comment: Spec imen was hemolyzed. Performed By: #### C MP, CBC ####Main Lab - [id number] [place] [address] CT CERVICAL SPINE W/O CONTRA Jamie 01-15-2017 CT CERVICAL SPINE W/O CONTRAST [facility] Diagnostic Imaging Services [address] [place] [id number] Diagnostic Imaging Report : [id number] Signed Name: ISI GENAO MRUN: [id number] : 1965 Loc: ED Age / Sex: 51 / F ADM Status: REG ER ADM Date: 01/15/17 Room/Bed: Ordering Physician: SUSHILA Roberson DNP, Christoph er Procedure: CT CERVICAL SPINE W/O CONTRAST Order Number(s): [id number] Ordered Date: 01/15/17 Ordered Time: 924 REASON [...] Signed Date/Time: 01/15/17 1126 Transcribed Date/Time: 01/15/17 1122 Normal [facility] XR CHEST, ONE VIEWon 017 XR CHEST, ONE VIEW [facility] Diagnostic Imaging Services [address] [place] [id number] Diagnostic Imaging Report : [id number] Signed Name: ISI GENAO MRUN: [id number] : 1965 Loc: ED Age / Sex: 51 / F ADM Status: REG ER ADM Date: 01/15/17 Room/Bed: Ordering Physician: SUSHILA Roberson DNP, Christoph er Procedure: XR CHEST, ONE VIEW Order Number(s): [id number] Ordered Date: 01/15/17 Ordered Time: 928 # [...] Date/Time: 01/15/17 1243 Transcribed Date/Time: 01/15/17 1239 [facility]2017 XR LUMBAR SPINE, AP/LATERAL [facility] Diagnostic Imaging Services [address] [place] [address] Diagnostic Imaging Report : [id number] Signed Name: [id number] MRUN: [id number] : 1965 Loc: ED Age / Sex: 51 / F ADM Status: REG ER ADM Date: 01/15/17 Room/Bed: Ordering Physician: SUSHILA Roberson DNP, Christoph er Procedure: XR LUMBAR SPINE, AP/LATERAL Order Number(s): [id number] Ordered Date: 01/15/17 Ordered Time: 924 REASON [...] 01/15/17 1247 Transcribed Date/Time: 01/15/17 1243 Normal [facility] Office Visit: Post Op Kathi rivas 08-03-2015 General categories [Interpretation] of Cervical or vaginal smear or scraping by Cyto stain Normal Invalid Interpretation Code [facility] Work Phone: Breast Mammogram screening Normal Bilateral Invalid Interpretation Code [facility] Work Phone: Vital Signs Date Time Vital Sign Value Performing Clinician Faci lity 10-08-2024 11:49-0400 Body temperature 98.7 [degF] Dr. Nadine Salamanca MD Work Phone: [facility] 10-08-2024 11:49-0400 Diastolic blood pressure 60 mm[Hg] Dr. Nadine Salamanca MD Work Phone: [facility] 10-08-2024 11:49-0400 Heart rate 94 /min Dr. Nadine Salamanca MD Work Phone: [facility] 10-08-2024 11:49-0400 Respiratory rate 18 /min Dr. Nadine Salamanca MD Work Phone: [facility] 10-08-2024 11:49-0400 SaO2% (BldA) [Mass fraction] 94 % Dr. Nadine Salamanca MD Work Phone: [facility] 10-08-2024 11:49-0400 Systolic blood pressure 120 mm[Hg] Dr. Nadine Salamanca MD Work Phone: [facility] 07-31-2024 13:36-0400 Body height 165.6 cm Mohini Fourmile ASSOCIATE PROFESSOR OF PSYCHOLOGY.CREDIT RATING INSPECTOR Work Phone: [facility] 07-31-2024 13:36-0400 Body mass index (BMI) [Ratio] 40.36 kg/m2 Mohini Laura ASSOCIATE PROFESSOR OF PSYCHOLOGY.CREDIT RATING INSPECTOR Work Phone: [facility] 07-31-2024 13:36-0400 Body weight 110.68 kg Mohini Laura ASSOCIATE PROFESSOR OF PSYCHOLOGY.CREDIT RATING INSPECTOR Work Phone: [facility] 07-31-2024 13:36-0400 Diastolic blood pressure 84 mm[Hg] Mohini Fourmile ASSOCIATE PROFESSOR OF PSYCHOLOGY.CREDIT RATING INSPECTOR Work Phone: [facility] 07-31-2024 13:36-0400 Systolic blood pressure 132 mm[Hg] Mohini Laura ASSOCIATE PROFESSOR OF PSYCHOLOGY.CREDIT RATING INSPECTOR Work Phone: [facility] 06-11-2024 08:32-0400 Body height 167.[address] Nadine Salamanca MD Work Phone: [facility] 06-11-2024 08:32-0400 Body mass index (BMI) [Ratio] 39.4 kg/m2 Dr. Nadine Salamanca MD Work Phone: [facility] 06-11-2024 08:32-0400 Body temperature 98.4 [degF] Dr. Nadine Salamanca MD Work Phone: [facility] 06-11-2024 08:32-0400 Body weight 110.[address] Nadine Salamanca MD Work Phone: [facility] 06-11-2024 08:32-0400 Diastolic blood pressure 84 mm[Hg] Dr. Nadine Salamanca MD Work Phone: [facility] 06-11-2024 08:32-0400 Heart rate 87 /min Dr. Nadine Salamanca MD Work Phone: [facility] 06-11-2024 08:32-0400 Respiratory rate 18 /min Dr. Nadine Salamanca MD Work Phone: [facility] 06-11-2024 08:32-0400 SaO2% (BldA) [Mass fraction] 94 % Dr. Nadine Salamanca MD Work Phone: [facility] 06-11-2024 08:32-0400 Systolic blood pressure 142 mm[Hg] Dr. Nadine Salamanca MD Work Phone: [facility] 05-24-2023 15:50-0500 Body height 167.6 cm Mohini Laura ASSOCIATE PROFESSOR OF PSYCHOLOGY.CREDIT RATING INSPECTOR Work Phone: [facility] 05-24-2023 15:50-0500 Body weight 105.33 kg Mohini Laura ASSOCIATE PROFESSOR OF PSYCHOLOGY.CREDIT RATING INSPECTOR Work Phone: [facility] 05-24-2023 15:50-0500 Diastolic blood pressure 90 mm[Hg] Mohini Laura ASSOCIATE PROFESSOR OF PSYCHOLOGY.CREDIT RATING INSPECTOR Work Phone: [facility] 05-24-2023 15:50-0500 Systolic blood pressure 122 mm[Hg] Mohini Laura ASSOCIATE PROFESSOR OF PSYCHOLOGY.CREDIT RATING INSPECTOR Work Phone: [facility] 04-07-2023 16:30-0500 Body mass index (BMI) [Ratio] 36.9 kg/m2 Dr. Nadine Salamanca Work Phone: [facility] 04-07-2023 16:30-0500 Body temperature 98.2 [degF] Dr. Nadine Salamanca Work Phone: [facility] 04-07-2023 16:30-0500 Body weight 103.[address] Nadine Salamanca Work Phone: [facility] 04-07-2023 16:30-0500 Diastolic blood pressure 72 mm[Hg] Dr. Nadine Salamanca Work Phone: [facility] 04-07-2023 16:30-0500 Heart rate 76 /min Dr. Nadine Salamanca Work Phone: [facility] 04-07-2023 16:30-0500 Respiratory rate 16 /min Dr. Nadine Salamanca Work Phone: [facility] 04-07-2023 16:30-0500 SaO2% (BldA) [Mass fraction] 98 % Dr. Nadine Salamanca Work Phone: [facility] 04-07-2023 16:30-0500 Systolic blood pressure 116 mm[Hg] Dr. Nadine Salamanca Work Phone: [facility] 03-24-2023 08:06-0500 Body mass index (BMI) [Ratio] 36.9 kg/m2 Dr. Nadine Salamanca Work Phone: [facility] 03-24-2023 08:06-0500 Body temperature 98 [degF] Dr. Nadine Salamanca Work Phone: [facility] 03-24-2023 08:06-0500 Body weight 103.[address] Nadine Salamanca Work Phone: [facility] 03-24-2023 08:06-0500 Diastolic blood pressure 90 mm[Hg] Dr. Nadine Salamanca Work Phone: [facility] 03-24-2023 08:06-0500 Heart rate 90 /min Dr. Nadine Salamanca Work Phone: [facility] 03-24-2023 08:06-0500 Respiratory rate 17 /min Dr. Nadine Salamanca Work Phone: [facility] 03-24-2023 08:06-0500 SaO2% (BldA) [Mass fraction] 98 % Dr. Nadine Salamanca Work Phone: [facility] 03-24-2023 08:06-0500 Systolic blood pressure 146 mm[Hg] Dr. Nadine Salamanca Work Phone: [facility] 03-10-2023 15:23-0500 Body temperature 98.6 [degF] Dr. Nadine Salamanca Work Phone: [facility] 03-10-2023 15:23-0500 Diastolic blood pressure 85 mm[Hg] Dr. Nadine Salamanca Work Phone: [facility] 03-10-2023 15:23-0500 Heart rate 93 /min Dr. Nadine Salamanca Work Phone: [facility] 03-10-2023 15:23-0500 Respiratory rate 12 /min Dr. Nadine Salamanca Work Phone: [facility] 03-10-2023 15:23-0500 SaO2% (BldA) [Mass fraction] 95 % Dr. Nadine Salamanca Work Phone: [facility] 03-10-2023 15:23-0500 Systolic blood pressure 138 mm[Hg] Dr. Nadine Salamanca Work Phone: [facility] 07-07-2022 08:33-0400 Body height 167.[address] Nadine Salamanca Work Phone: [facility] 07-07-2022 08:33-0400 Body mass index (BMI) [Ratio] 36.6 kg/m2 Dr. Nadine Salamanca Work Phone: [facility] 07-07-2022 08:33-0400 Body temperature 98 [degF] Dr. Nadine Salamanca Work Phone: [facility] 07-07-2022 08:33-0400 Body weight 102.[address] Nadine Salamanca Work Phone: [facility] 07-07-2022 08:33-0400 Diastolic blood pressure 82 mm[Hg] Dr. Nadine Salamanca Work Phone: [facility] 07-07-2022 08:33-0400 Heart rate 91 /min Dr. Nadine Salamanca Work Phone: [facility] 07-07-2022 08:33-0400 Respiratory rate 16 /min Dr. Nadine Salamanca Work Phone: [facility] 07-07-2022 08:33-0400 SaO2% (BldA) [Mass fraction] 95 % Dr. Nadine Salamanca Work Phone: [facility] 07-07-2022 08:33-0400 Systolic blood pressure 120 mm[Hg] Dr. Nadine Salamanca Work Phone: [facility] 05-24-2022 08:25-0500 Body height 166.4 cm Rosemary Metzger MD Work Phone: [facility] 05-24-2022 08:25-0500 Body weight 103.42 kg Rosemary Metzger MD Work Phone: [facility] 05-24-2022 08:25-0500 Diastolic blood pressure 86 mm[Hg] Rosemary Metzger MD Work Phone: [facility] 05-24-2022 08:25-0500 Systolic blood pressure 144 mm[Hg] Rosemary Metzger MD Work Phone: [facility] 04-02-2022 13:25-0500 Body height 167.[address] Nadine Salamanca Work Phone: [facility] Work Phone: 04-02-2022 13:25-0500 Body mass index (BMI) [Ratio] 35.5 kg/m2 Dr. Nadine Salamanca Work Phone: [facility] Work Phone: 04-02-2022 13:25-0500 Body temperature 99 [degF] Dr. Nadine Salamanca Work Phone: [facility] Work Phone: 04-02-2022 13:25-0500 Body weight 99.[address] Nadine Salamanca Work Phone: [facility] Work Phone: 04-02-2022 13:25-0500 Diastolic blood pressure 90 mm[Hg] Dr. Nadine Salamanca Work Phone: [facility] Work Phone: 04-02-2022 13:25-0500 Heart rate 85 /min Dr. Nadine Salamanca Work Phone: [facility] Work Phone: 04-02-2022 13:25-0500 Respiratory rate 16 /min Dr. Nadine Salamanca Work Phone: [facility] Work Phone: 04-02-2022 13:25-0500 SaO2% (BldA) [Mass fraction] 97 % Dr. Nadine Salamanca Work Phone: [facility] Work Phone: 04-02-2022 13:25-0500 Systolic blood pressure 150 mm[Hg] Dr. Nadine Salamanca Work Phone: [facility] Work Phone: 03-25-2022 08:06-0500 Body mass index (BMI) [Ratio] 35.4 kg/m2 Dr. Nadine Salamanca Work Phone: [facility] Work Phone: 03-25-2022 08:06-0500 Body temperature 98.6 [degF] Dr. Nadine Salamanca Work Phone: [facility] Work Phone: 03-25-2022 08:06-0500 Body weight 99.[address] Nadine Salamanca Work Phone: [facility] Work Phone: 03-25-2022 08:06-0500 Diastolic blood pressure 70 mm[Hg] Dr. Nadine Salamanca Work Phone: [facility] Work Phone: 03-25-2022 08:06-0500 Heart rate 82 /min Dr. Nadine Salamanca Work Phone: [facility] Work Phone: 03-25-2022 08:06-0500 Respiratory rate 16 /min Dr. Nadine Salamanca Work Phone: [facility] Work Phone: 03-25-2022 08:06-0500 SaO2% (BldA) [Mass fraction] 96 % Dr. Nadine Salamanca Work Phone: [facility] Work Phone: 03-25-2022 08:06-0500 Systolic blood pressure 130 mm[Hg] Dr. Nadine Salamanca Work Phone: [facility] Work Phone: 03-24-2022 09:00-0500 Body temperature 97 [degF] Dr. Nadine Salamanca Work Phone: [facility] Work Phone: 03-24-2022 09:00-0500 Body weight 98.[address] Nadine Salamanca Work Phone: [facility] Work Phone: 03-24-2022 09:00-0500 Diastolic blood pressure 88 mm[Hg] Dr. Nadine Salamanca Work Phone: [facility] Work Phone: 03-24-2022 09:00-0500 Heart rate 83 /min Dr. Nadine Salamanca Work Phone: [facility] Work Phone: 03-24-2022 09:00-0500 Respiratory rate 16 /min Dr. Nadine Salamanca Work Phone: [facility] Work Phone: 03-24-2022 09:00-0500 SaO2% (BldA) [Mass fraction] 98 % Dr. Nadine Salamanca Work Phone: [facility] Work Phone: 03-24-2022 09:00-0500 Systolic blood pressure 134 mm[Hg] Dr. Nadine Salamanca Work Phone: [facility] Work Phone: 10-23-2021 09:43-0400 Body height 167.[address] Nadine Salamanca Work Phone: [facility] Work Phone: 10-23-2021 09:43-0400 Body mass index (BMI) [Ratio] 34.7 kg/m2 Dr. Nadine Salamanca Work Phone: [facility] Work Phone: 10-23-2021 09:43-0400 Body temperature 97.2 [degF] Dr. Nadine Salamanca Work Phone: [facility] Work Phone: 10-23-2021 09:43-0400 Body weight 97.[address] Nadine Salamanca Work Phone: [facility] Work Phone: 10-23-2021 09:43-0400 Diastolic blood pressure 80 mm[Hg] Dr. Nadine Salamanca Work Phone: [facility] Work Phone: 10-23-2021 09:43-0400 Heart rate 72 /min Dr. Nadine Salamanca Work Phone: [facility] Work Phone: 10-23-2021 09:43-0400 Respiratory rate 18 /min Dr. Nadine Salamanca Work Phone: [facility] Work Phone: 10-23-2021 09:43-0400 SaO2% (BldA) [Mass fraction] 96 % Dr. Nadine Salamanca Work Phone: [facility] Work Phone: 10-23-2021 09:43-0400 Systolic blood pressure 132 mm[Hg] Dr. Nadine Salamanca Work Phone: [facility] Work Phone: 09-21-2021 09:03-0400 Diastolic blood pressure 86 mm[Hg] Dr. Nadine Salamanca Work Phone: [facility] Work Phone: 09-21-2021 09:03-0400 Systolic blood pressure 146 mm[Hg] Dr. Nadine Salamanca Work Phone: [facility] Work Phone: 09-21-2021 08:15-0400 Body height 167.[address] Nadine Salamanca Work Phone: [facility] Work Phone: 09-21-2021 08:15-0400 Body mass index (BMI) [Ratio] 34.3 kg/m2 Dr. Nadine Salamanca Work Phone: [facility] Work Phone: 09-21-2021 08:15-0400 Body weight 96.[address] Nadine Salamanca Work Phone: [facility] Work Phone: 09-21-2021 08:15-0400 Heart rate 75 /min Dr. Nadine Salamanca Work Phone: [facility] Work Phone: 09-21-2021 08:15-0400 Respiratory rate 16 /min Dr. Nadine Salamanca Work Phone: [facility] Work Phone: 09-21-2021 08:15-0400 SaO2% (BldA) [Mass fraction] 98 % Dr. Nadine Salamanca Work Phone: [facility] Work Phone: 07-29-2021 17:12-0400 Body mass index (BMI) [Ratio] 34.5 kg/m2 Dr. Nadine Salamanca Work Phone: [facility] Work Phone: 07-29-2021 17:12-0400 Body temperature 97 [degF] Dr. Nadine Salamanca Work Phone: [facility] Work Phone: 07-29-2021 17:12-0400 Body weight 97.[address] Nadine Salamanca Work Phone: [facility] Work Phone: 07-29-2021 17:12-0400 Diastolic blood pressure 100 mm[Hg] Dr. Nadine Salamanca Work Phone: [facility] Work Phone: 07-29-2021 17:12-0400 Heart rate 81 /min Dr. Nadine Salamanca Work Phone: [facility] Work Phone: 07-29-2021 17:12-0400 Respiratory rate 16 /min Dr. Nadine Salamanca Work Phone: [facility] Work Phone: 07-29-2021 17:12-0400 SaO2% (BldA) [Mass fraction] 99 % Dr. Nadine Salamanca Work Phone: [facility] Work Phone: 07-29-2021 17:12-0400 Systolic blood pressure 140 mm[Hg] Dr. Nadine Salamanca Work Phone: [facility] Work Phone: 07-29-2021 17:12-0400 Body height 167.[address] Nadine Salamanca Work Phone: [facility] Work Phone: 07-29-2021 17:12-0400 Body mass index (BMI) [Ratio] 34.5 kg/m2 Dr. Nadine Salamanca Work Phone: [facility] Work Phone: 07-29-2021 17:12-0400 Body temperature 97 [degF] Dr. Nadine Salamanca Work Phone: [facility] Work Phone: 07-29-2021 17:12-0400 Body weight 97.[address] Nadine Salamanca Work Phone: [facility] Work Phone: 07-29-2021 17:12-0400 Diastolic blood pressure 100 mm[Hg] Dr. Nadine Salamanca Work Phone: [facility] Work Phone: 07-29-2021 17:12-0400 Heart rate 81 /min Dr. Nadine Salamanca Work Phone: [facility] Work Phone: 07-29-2021 17:12-0400 Respiratory rate 16 /min Dr. Nadine Salamanca Work Phone: [facility] Work Phone: 07-29-2021 17:12-0400 SaO2% (BldA) [Mass fraction] 99 % Dr. Nadine Salamanca Work Phone: [facility] Work Phone: 07-29-2021 17:12-0400 Systolic blood pressure 140 mm[Hg] Dr. Nadine Salamanca Work Phone: [facility] Work Phone: Encounters Encounter Date Encounter Type Care Provider Facility Start: 02-11-2025 ambulatory Jessica Rashid Alfredo Faci lity:[facility] Start: 02-02-2025 ambulatory Namrata Braden Facility :[facility] Start: 01-29-2025 End: 01-29-2025 ambulatory Nadine Salamanca Facility:[facility] Start: 12-04-2024 End: 12-04-[address] Nadine Salamanca MD Work Phone: -[facility] Start: 12-04-2024 End: 12-04-[address] Aaron Matthews MD -[facility] Start: 12-04-2024 End: 12-04-2024 ambulatory [facility] Facility:[facility] Start: 11-12-2024 End: 11-12-[address] [...] -[facility] Start: 11-05-2024 End: 11-05-2024 ambulatory [facility] Facility:[facility] Start: 10-15-2024 End: 11-01-[address] Aaron Matthews MD -[facility] Start: 10-15-2024 End: 11-01-[address] Nadine Salamanca MD Work Phone: -[facility] Start: 10-08-2024 End: 10-08-2024 Patient encounter procedure Ludivina Yang [facility] Work Phone: Start: 10-08-2024 End: 10-08-[address] Nadine Salamanca MD Work Phone: [facility] Start: 10-08-2024 End: 10-08-2024 ambulatory [facility] Facility[facility] Start: 09-17-2024 End: 10-01-[address] Aaron Matthews MD -[facility] Start: 09-17-2024 End: 10-01-[address] Nadine Salamanca MD Work Phone: -[facility] Start: 08-17-2024 End: 09-01-[address] Aaron Matthews MD -[facility] Start: 08-17-2024 End: 09-01-[address] Nadine Salamanca MD Work Phone: [facility] Work Phone: Start: 08-06-2024 End: 10-06-2024 Follow-up encounter Rosemary Metzger MD Work Phone: [facility] Start: 08-03-2024 End: 08-03-[address] Nadine Salamanca MD Work Phone: [facility] Work Phone: Start: 08-03-2024 End: 08-03-[address] Namrata Braden MD -Radiology, [place] Work Phone: Start: 08-02-2024 End: 08-03-[address] Nadine Salamanca MD Work Phone: [facility] Work Phone: Start: 08-02-2024 End: 08-02-[address] Namrata Braden MD -Laboratory, [place] Start: 08-02-2024 End: 08-02-2024 ambulatory aNmrata Braden Facility:[facility] Start: 08-01-2024 End: 10-01-2024 Follow-up encounter Farzaneh Neves APRN.CREDIT RATING INSPECTOR Work Phone: OB/Gynecology Start: 07-31-2024 End: 07-31-2024 Patient encounter procedure Mohini Sanchez APRN.CREDIT RATING INSPECTOR Work Phone: OB/Gynecology Comment on above: Encounter for gyneco logical examination (general) (routine) without abnormal findings (Primary Dx); Encounter for screening for human papillomavirus (HPV); Pap smear for cervical cancer screening; Encounter for screening mammogram for breast cancer; Vaginal atrophy Start: 07-31-2024 End: 07-31-2024 Patient encounter status Mohini Sanchez KATHY Work Phone: [facility] Start: 07-31-2024 Encounter for gynecological examination (general) (routine) without abnormal findings MOHINI SANCHEZ [facility] Start: 07-31-2024 End: 07-31-2024 ambulatory MOHINI SANCHEZ Facility:[facility] Start: 07-31-2024 End: 07-31-2024 Subsequent hospital visit by physician Screen Mammo [facility] M[facility]ogram Comment on above: Breast cancer screen ing by mammogram [Z12.31] Start: 07-23-2024 End: 08-01-[address] Aaron Matthews MD -Laboratory, [place] Start: 07-23-2024 End: 08-01-2024 ambulatory Namrata Asiya Facility:[facility] Start: 06-25-2024 End: 06-25-[address] Nadine Salamanca MD Work Phone: [facility] Work Phone: Start: 06-25-2024 End: 06-25-[address] Aaron Matthews MD -Ultrasound, [facility] Work Phone: Start: 06-25-2024 End: 07-02-[address] Aaron Matthews MD -Laboratory, [place] Start: 06-25-[address] Aaron mendoza MD -Laboratory, [place] Start: 06-25-2024 End: 07-02-[address] Nadine Salamanca MD Work Phone: [facility] Work Phone: Start: 06-25-2024 End: 06-25-2024 ambulatory Aaron Matthews Facility:[facility] Start: 06-11-2024 End: 06-11-[address] Nadine Salamanca MD -[place] Work Phone: Start: 06-11-2024 End: 06-11-2024 ambulatory Nadine Salamanca Facility:[facility] Start: 05-29-2024 End: 06-01-2024 ambulatory [facility] Facility:[facility] Start: 05-29-2024 End: 06-01-[address] Aaron Matthews MD -Laboratory, [facility] Start: 04-30-2024 End: 05-04-[address] Aaron Matthews MD -Laboratory, [facility] Start: 04-30-2024 End: 05-04-2024 ambulatory [facility] Facility:[facility] Start: 04-02-2024 End: 04-03-2024 ambulatory [facility] Facility:[facility] Start: 04-02-2024 End: 04-03-[address] Aaron Matthews MD -Laboratory, [place] Start: 02-17-2024 End: 02-17-2024 ambulatory Nadine Salamanca Facility:[facility] Start: 06-30-2023 End: 06-30-[address] Nadine Salamanca Work Phone: [facility] Work Phone: Start: 06-30-2023 End: 06-30-[address] Nadine Salamanca Work Phone: [facility], [facility] Work Phone: Start: 06-13-2023 End: 06-13-[address] Nadine Salamanca Work Phone: [facility] Work Phone: Start: 06-13-2023 End: 06-13-[address] Nadine Salamanca Work Phone: [facility], [facility] Work Phone: Start: 06-10-2023 End: 06-10-[address] Nadine Salamanca Work Phone: [facility] Work Phone: Start: 06-10-2023 End: 06-10-[address] Nadine Salamanca Work Phone: [facility] Start: 06-01-2023 End: 06-01-2023 Subsequent hospital visit by physician Screen Mammo [facility] Mammogram Comment on above: Encounter for screen ing mammogram for breast cancer [Z12.31] Start: 05-24-2023 End: 05-24-2023 Patient encounter procedure Mohini Sanchez APRN.CREDIT RATING INSPECTOR Work Phone: OB/Gynecology Comment on above: Encounter for gyneco logical examination (general) (routine) without abnormal findings (Primary Dx); Encounter for screening mammogram for breast cancer Start: 05-24-2023 End: 05-24-2023 Patient encounter status Mohini Sanchez APRN.CREDIT RATING INSPECTOR Work Phone: [facility] Start: 04-07-2023 End: 04-07-[address] Nadine Salamanca Work Phone: [facility] Work Phone: Start: 03-24-2023 End: 03-24-[address] Nadine Salamanca Work Phone: [facility] [facility] Work Phone: Start: 03-10-2023 End: 03-10-[address] Nadine Salamanca Work Phone: [facility] Work Phone: Start: 09-20-2022 End: 09-20-[address] Nadine Salamanca Work Phone: [facility] Work Phone: Start: 09-20-2022 End: 09-20-[address] Nadine Salamanca Work Phone: [facility] Start: 07-07-2022 End: 07-07-2022 Encounter for general adult medical examination without abnormal findings Dr. Nadine Salamanca Work Phone: [facility] Start: 07-07-2022 End: 07-07-[address] Nadine Salamanca Work Phone: [facility] Start: 05-24-2022 End: 05-24-2022 Patient encounter procedure Rosemary Metzger MD Work Phone: OB/Gynecology Comment on above: Encounter for gyneco logical examination (general) (routine) without abnormal findings (Primary Dx); Encounter for screening mammogram for breast cancer Start: 05-24-2022 End: 05-24-2022 Patient encounter status Rosemary Metzger MD Work Phone: OB/Gynecology Start: 05-24-2022 End: 05-24-2022 Subsequent hospital visit by physician Screen Mammo [facility] Mammogram Comment on above: Encounter for screen ing mammogram for malignant neoplasm of breast [Z12.31] Start: 04-02-2022 End: 04-02-[address] Nadine Salamanca Work Phone: [facility] Work Phone: Start: 04-02-2022 End: 04-02-[address] Nadine Salamanca Work Phone: [facility] Start: 03-25-2022 End: 03-25-[address] Nadine Salamanca Work Phone: [facility] Start: 03-24-2022 End: 03-24-[address] Nadine Salamanca Work Phone: [facility] Work Phone: Start: 03-24-2022 End: 03-24-2022 Encounter for general adult medical examination without abnormal findings Dr. Nadine Salamanca Work Phone: [facility] Start: 03-24-2022 End: 03-24-[address] Nadine Salamanca Work Phone: [facility] Start: 12-15-2021 Telephone encounter Rosemary Metzger MD Work Phone: OB/Gynecology Comment on above: Orders Start: 10-23-2021 End: 10-23-2021 Encounter for general adult medical examination without abnormal findings Dr. Nadine Salamanca Work Phone: [facility] Start: 10-23-2021 End: 10-23-[address] Nadine Salamanca Work Phone: [facility] Start: 10-21-2021 End: 10-21-[address] aNdine Salamanca [facility] [place] Start: 09-22-2021 End: 09-22-[address] Nadine Salamanca Work Phone: [facility], [place] Start: 09-21-2021 End: 09-21-[address] Nadine Salamanca Work Phone: [facility] Start: 09-14-2021 End: 09-14-[address] Nadine Salamanca Work Phone: [facility], [facility] Start: 07-29-2021 End: 07-29-[address] Nadine Salamanca Work Phone: [facility] Start: 03-11-[address] Yumi Salamanca Work Phone: [facility] Start: 11-19-2020 ambulatory RALPH XIONG Facility:[facility] Start: 01-15-2017 End: 01-15-2017 [facility] department [facility] Start: 11-07-2009 End: 05-11-2012 Patient encounter status Mohini Sanchez APRN.CREDIT RATING INSPECTOR Work Phone: [facility] Procedures Date Procedure Procedure Detail Performing Clinician [...] the productionof interferon gamma. Chemiluminescence immunoassaymethodologyPerformed at: [address] [id number] Director: Ismael Keith PhD, Phone: [phone] Start: 08-02-[address] Bridger [...] Toxicity >100 ng/mL (>250 nmol/L) Start: 06-30-[address] Nadine Salamanca Work Phone: Start: 06-01-2023 Screening digital breast tomosynthesis bi Mohini Sanchez KATHY Work Phone: Start: 05-24-2022 Screening mammography bi [...] Activity Detail Author Start: 09-13-2026 Colonoscopy COLONOSCOPY [facility] Start: 09-13-2026 COLORECTAL CANCER SCREENING COLORECTAL CANCER SCREENING [facility] Start: 09-13-2026 Screening for malign ant neoplasm of colon [facility] Start: 08-02-2025 End: 08-02-2025 Patient encounter procedure Mammogram Comment on above: Encounter for screen ing mammogram for breast cancer [Z12.31] Annual Start: 07-31-2025 Screening for malign ant neoplasm of breast Mammogram Screening [facility] Start: 07-31-2025 Screening for malign ant neoplasm of cervix Cervical Cancer Screening [facility] Start: 01-14-2025 HPV TESTING HPV TESTING [facility] Start: 01-14-2025 PAP TESTING PAP TESTING [facility] Start: 01-14-2025 Screening for malign ant neoplasm of cervix [facility] Start: 12-03-2024 Influenza vaccination [facility] Start: 10-08-2024 X-ray of knee, four or more views Knee 4 or More Views [facility] Start: 10-08-2024 XR Knee GE 4 Views [facility] Start: 06-01-2024 Screening for malign ant neoplasm of breast Mammogram Screening [facility] Start: 12-04-2023 Covid-19 Vaccine () Covid-19 Vaccine () [facility] Start: 12-04-2023 Influenza vaccination Influenza Vacc ine (#1) [facility] Start: 05-24-2023 Mammography Mammogram Screening [facility] Start: 05-24-2023 Screening for malign ant neoplasm of breast Mammogram Screening [facility] Start: 04-04-2023 [facility] Start: 12-03-2022 Covid-19 Vaccine () Covid-19 Vaccine () [facility] Start: 12-03-2022 Influenza vaccination Influenza Vacc ine (#1) [facility] Start: 04-04-2022 DEPRESSION ASSESSMENT DEPRESSION ASS ESSMENT [facility] Start: 04-02-2022 Viral nucleic acid assay [facility] Work Phone: Start: 03-24-2022 Patient referral [facility] Work Phone: Start: 02-10-2022 Mammography MAMMOGRAM [facility] Start: 12-03-2021 Influenza vaccination INFLUENZA (#1) [facility] Start: 01-30-2021 Lipid 1996 panel - Serum or Plasma Lipid Screening [facility] Start: 01-30-2021 Lipid panel Lipid Screening [facility] Start: 01-30-2021 LIPID SCREEN LIPID SCREEN [facility] Start: 01-14-2021 Screening for malign ant neoplasm of cervix Cervical Cancer Screening [facility] Start: 10-20-2020 COVID-19 VACCINE (4 - Booster) COVID-19 VACCINE (4 - Booster) [facility] Start: 08-15-2020 COVID-19 VACCINE (4 - Booster) COVID-19 VACCINE (4 - Booster) [facility] Start: 01-30-2019 DIABETES SCREEN DIABETES SCREEN [facility] Start: 01-30-2019 Diabetes Screening Diabetes Screenin g [facility] Start: 05-06-2017 Adult depression screening assessment DEPRESSION SCREENING [facility] Start: 02-28-2017 End: 02-28-2017 Appointment Appointment [facility] Work Phone: Start: 2016 SHINGRIX VACCINE (1 of 2) SHINGRIX VACCINE (1 of 2) [facility] Start: 2011 COLOGUARD (FIT-DNA) COLOGUARD (FIT-D NA) [facility] Start: [address] COLONOGRAPHY [facility] Start: 2011 FECAL OCCULT BLOOD FECAL OCCULT BLOO D [facility] Start: 2011 Screening for malign ant neoplasm of colon [facility] Start: 2011 SIGMOIDOSCOPY SIGMOIDOSCOPY [facility] Start: 10-06-2008 Urine microalbumin profile [facility] Start: 1985 Hepatitis B Vaccine (1 of 3 - 19+ 3-dose series) Hepatitis B Vaccine (1 of 3 - 19+ 3-dose series) [facility] Start: 1985 Pneumococcal Vaccine : 50+ (1 of 2 - PCV) Pneumococcal Vaccine: 50+ (1 of 2 - PCV) [facility] Start: 1985 Shingrix Vaccine (1 of 2) Shingrix Vaccine (1 of 2) [facility] Start: 1984 ANNUAL PCP TEAM 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 [employer]CH[employer] GISELL DISEASE VISIT ANNUAL PCP TEAM CHRONIC DISEASE VISIT [facility] Start: 1984 Anxiety Screening Anxiety Screening [facility] Start: 1984 BP CONTROLLED (<130/80) BP CONTROLLE D (<130/80) [facility] Start: 1984 Depression Screening Depression Scre ening [facility] Start: 1984 HEPATITIS C SCREENING HEPATITIS C [facility] Start: 1984 Hepatitis C screening Hepatitis C [facility] Start: 1984 HIV SCREENING HIV SCREENING [facility] Start: 1984 HIV screening HIV Screening [facility] Start: 1966 HEPATITIS B (1 of 3 - 3-dose series) HEPATITIS B (1 of 3 - 3-dose series) [facility] Start: 1966 Hepatitis B Vaccine (1 of 3 - 3-dose series) Hepatitis B Vaccine (1 of 3 - 3-dose series) [facility] End: 06-22-2024 DBT Breast - bilateral screening ARMANDO SCREENING W MOMO Radiology Routine Encounter for screening mammogram for breast cancer 1 Occurrences starting 05/24/2023 until 06/22/2024 [facility] Work Phone: Comment on above: 1 Occurrences starti ng 05/24/2023 until 06/22/2024 End: 08-30-2025 DBT Breast - bilateral screening ARMANDO SCREENING W MOMO Radiology Routine Encounter for gynecological examination (general) (routine) without abnormal findings Encounter for screening mammogram for breast cancer 1 Occurrences starting 07/31/2024 until 08/30/2025 [facility] Work Phone: Comment on above: 1 Occurrences starti ng 07/31/2024 until 08/30/2025 DBT Breast - bilater al screening ARMANDO SCREENING W MOMO Radiology Routine Breast cancer screening by mammogram 07/31/2024 1:06 PM EDT [facility] Work Phone: Lipid 1996 panel - Serum or Plasma [facility] Work Phone: End: 06-23-2023 ARMANDO SCREENING W MOMO ARMANDO SCREENING W MOMO Radiology Routine Encounter for gynecological examination (general) (routine) without abnormal findings Encounter for screening mammogram for breast cancer 1 Occurrences starting 05/24/2022 until 06/23/2023 [facility] Work Phone: Comment on above: 1 Occurrences starti ng 05/24/2022 until 06/23/2023 PAP TEST PAP TEST Lab [facility] Encounter for gynecological examination (general) (routine) without abnormal findings Encounter for screening for human papillomavirus (HPV) Pap smear for cervical cancer screening 07/31/2024 1:59 PM EDT [facility] Patient referral [facility] Work Phone: End: 01-14-2023 Screening mammography bi 2-view breast inc cad ARMANDO SCREENING Radiology Routine Encounter for screening mammogram for malignant neoplasm of breast 1 Occurrences starting 12/21/2021 until 01/14/2023 [facility] Work Phone: Comment on above: 1 Occurrences starti ng 12/21/2021 until 01/14/2023 [facility] Work Phone: [facility] Immunizations Immunization Date Immunization Notes Care Provider Marcelo garland 06-20-2020 Covid (Pfizer) Dr. Nadine Salamanca Work Phone: [facility] 05-30-2020 Covid (Pfizer) Dr. Nadine Salamanca Work Phone: [facility] 05-14-2020 COVID-19 original vaccine, age 12+ yr, monovalent ([employer]-Scaffold - PURPLE TOP) Mohini Sanchez APRN.CNP Work Phone: [facility] 03-25-2016 influenza virus vaccine, unspecified formulation Screen Wstr [facility] 10-05-2008 tetanus and diphther ia toxoids, adsorbed, preservative free, for adult use (2 Lf of tetanus toxoid and 2 Lf of diphtheria toxoid) Rosemary Metzger MD Work Phone: [facility] Work Phone: Payers Date Payer Category Payer Self-pay [id number] 2018 Private Health Insurance MMO SUP [employer] PPO [id number] 2018 Unknown [id number] 2013 Unknown [id number] 1965 Unknown [id number] ..[id number]. 594 Unknown [id number] Unknown [id number] ..840.1.209975.3.579.2. 462 Unknown [id number] ..840.1.897028.3.579.2. 462 Unknown [id number] .840.1.525272.3.579.2. 462 Unknown [id number] .840.1.302543.3.579.2. 462 Unknown [id number] .840.1.756547.3.579.2. 462 Unknown [id number] .840.1.415862.3.579.2. 462 Unknown [id number] .840.1.122740.3.579.2. 462 Unknown [id number] .840.1.324974.3.579.2. 462 Unknown [id number] .840.1.074954.3.579.2. 462 Unknown [id number] .840.1.766909.3.579.2. 462 Unknown [id number] .840.1.481568.3.579.2. 462 Unknown [id number] .840.1.027942.3.579.2. 462 Unknown [id number] .840.1.152701.3.579.2. 462 Unknown [id number] .840.1.551024.3.579.2. 462 Unknown [id number] .840.1.382935.3.579.2. 462 Unknown [id number] .840.1.653518.3.579.2. 462 Unknown [id number] .840.1.620017.3.579.2. 462 Unknown [id number] 2..840.1.469671.3.579.2. 462 Unknown [id number] 2..840.1.915946.3.579.2. 462 Unknown [id number] 2..840.1.001735.3.579.2. 462 Unknown [id number] 2..840.1.405435.3.579.2. 462 Social History Date Type Detail Facility Start: 07-29-2021 End: 04-07-2023 Tobacco smoking status UTIS Unknown if ever smoked [facility] Start: 12-26-2018 Rare [facility] Start: 12-26-2018 None [facility] Start: 12-26-2018 Spouse/ Signif icant Other [facility] Start: 1965 Sex Assigned At Female W [facility] Start: 05-28-2013 End: 04-07-2023 Tobacco smoking status NHIS Never smoked tobacco [facility] Start: 05-28-2013 End: 05-24-2022 Tobacco use and exposure Smokeless tobacco non-user [facility] Start: 01-26-2021 End: 07-31-2024 Alcohol intake Current drinker of alcohol (finding) [facility] Start: 1965 Sex Assigned At Not on file [facility] Start: 05-24-2022 End: 08-26-2022 History of Social function [facility] Start: 05-24-2022 End: 08-26-2022 Tobacco use panel [facility] National Score (1-100), lower number is lower risk 69 [facility] Start: 06-30-2024 End: 07-03-2024 Sex Female (finding) [facility] Functional Status Date Assessment Result Facility 11-04-2014 Are you deaf, or do you have serious difficulty hearing No 11/04/2014 3:38 PM Laura Weston MA No [facility] 11-04-2014 Are you blind, or do you have serious difficulty seeing, even when wearing glasses No 11/04/2014 3:38 PM Laura Weston MA No [facility] 11-04-2014 Do you have serious difficulty walking or climbing stairs No 11/04/2014 3:38 PM EDT Laura Alegria MA No [facility] 11-04-2014 Do you have difficul ty dressing or bathing No 11/04/2014 3:38 PM EDT Laura Alegria MA No [facility] 11-04-2014 Because of a physica l, mental, or emotional condition, do you have difficulty doing errands alone such as visiting a physician's office or shopping No 11/04/2014 3:38 PM EDT Laura Alegria MA No [facility] Mental Status Date Assessment Result Facility 11-04-2014 Because of a physica l, mental, or emotional condition, do you have serious difficulty concentrating, remembering, or making decisions No 11/04/2014 3:38 PM EDT Laura Alegria MA No [facility] Clinical Notes 04-23-2013 to 10-08-2024 Note Date & Type Note Facility 10-08-2024 Evaluation note Diagnosis Onset Date Resolution Knee pain, left acute October 08, 2024 11:41am [facility] Work Phone: 1(680) 338-561807-07-2025 Radiology Diagnostic study note [facility] [address] [place] [id number] Knee 4 or More Views MR#: [id number] Acct: [id number] Name: ISI GENAO Rep #: [id number] : 1965 F 59 From: Pet er Peer DO PCP: Dr. Nadine Salamanca MD Status: R EG CLI Study:Knee 4 or More Views Date of Exam: 10/08/24 Exam# [id number] Ordering Dr: Ludivina Guzmán PROCEDURE: KNEE 4 OR MORE VIEWS 10/08/2024 REASON FOR EXAM: LEFT KNEE PAIN TECHNIQUE: KNEE 4 OR MORE VIEWS COMPARISON: None. FINDINGS: Bones: Normal mineralization. No fracture Joints: Joint cartilage intact. No significant periarticular Effusion: Small Soft tissues: Possible prepatellar soft tissue thickening Other: RAD/Knee 4 or More Views IMPRESSION: No acute osseous process. As above Reading Location: [facility]- CC: Dr. Nadine Salamanca MD; BETH Astorga ~ Ice Cutter: Signed [facility]05-05-2025 Progress note* Result Encounter Note - Rosemary Metzger MD - 08/06/2024 11:00 AM EDT Send letter about normal pap if she does not have mychart. Rosemary Metzger MD [facility]05-05-2025 Miscellaneous Notes* Result Encounter Note - Rosemary Metzger MD - 08/06/2024 11:00 AM EDT Send letter about normal pap if she does not have mychart. Rosemary Metzger MD documented in this encounterUniversity [facility]als [facility]05-03-2025 Radiology Diagnostic study note [facility] [address] [place], [place] [id number] Chest PA and Lateral MR#: [id number] Acct: [id number] Name: ISI GENAO Rep #: [id number] : 1965 F 59 From: Eliezer Flood MD PCP: Dr. Nadine Salamanca MD Status: R EG CLI Study:Chest PA and Lateral Date of Exam: 08/03/24 Exam# [id number] Ordering Dr: Namrata Braden MD PROCEDURE: CHEST [...] No evidence of acute disease. Reading Location: [facility] CC: Dr. Nadine Salamanca MD; Dr. Namrata Braden MD ~ Ice Cutter: Signed [facility]04-29-2025 History of Present illness Narrative* Jessica Diamond RT(R) - 07/31/2024 12:50 PM EDT Radiology [...] PATIENT PRESENTS WITH AN IMPLANTABLE OR ATTACHED TELEPHONE RECORDER: No RADIOLOGY DEPARTMENT: Mammography PERIPHERAL IV DATA: Not applicable SIGNED BY: JUAN MANUEL Pinedo) July 31, 2024 1:12 PM documented in this encounterUniversity [facility]als [facility]04-29-2025 NoteHNO ID: [id number] Author: JESSICA DIAMOND RT(R) Service: ? Author [...] PATIENT PRESENTS WITH AN IMPLANTABLE OR ATTACHED TELEPHONE RECORDER: No RADIOLOGY DEPARTMENT: Mammography PERIPHERAL IV DATA: Not applicable SIGNED BY: RT Khris(Vinnie) July 31, 2024 1:12 [facility]04-29-2025 NoteHNO ID: [id number] Author: MOHINI SANCHEZ APRN.CREDIT RATING INSPECTOR Service: ? 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 Isi is a 59 year old who [...] Hypertension Father Coronary Artery Disease Father first [place]/angioplasty age 40's -- MULTPLE interventions other (aortic [...] discussed with the Patient or Patient's Authorized Environmental Planning Engineer. As applicable, any other physician, advance practice provider, medical student, or other health professional student that will be observing or involved in the sensitive examination for educational or training purposes was discussed with the Patient or Authorized Environmental Planning Engineer. 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 Isi is a 59 year old who [...] Hypertension Father Coronary Artery Disease Father first [place]/angioplasty age 40's -- MULTPLE interventions other (aortic [...] discussed with the Patient or Patient's Authorized Environmental Planning Engineer. As applicable, any other physician, advance practice provider, medical student, or other health professional student that will be observing or involved in the sensitive examination for educational or training purposes was discussed with the Patient or Authorized Environmental Planning Engineer. The Patient or Authorized Environmental Planning Engineer has agreed to proceed with the sensitive [...] external genitalia normal, normal Bartholin's glands, urethra, [place] Y's glands, no vulvar lesions, no cervical lesions, [...] intercourse Mohini Sanchez APRN.JOSE documented in this encounterUniversity Hospitals [facility] Center03-25-2025 Radiology Diagnostic study note [facility] [address] [place] [address] Kidney and Bladder MR#: [id number] Acct: [id number] Name: ISI GENAO Rep #: [id number] : 1965 F 59 From: Lexii Maloney MD PCP: Dr. Nadine Salamanca MD Status: R EG CLI Study:Kidney and Bladder Date of Exam: 0 06/25/24 Exam# [id number] Ordering Dr: Talon Matthews MD EXAM: US [...] IMPRESSION: Multiple bilateral renal cysts. Reading Location: [facility] CC: Dr. Nadine Salamanca MD; Dr. Aaron Matthews MD ~ Ice Cutter: Signed [facility]03-10-2025 Evaluation note* Diagnosis Onset Date Resolution Status Admit Date Elevated antinuclear antibod y (FRANK) level acute June 11, 2024 8:23am Anxiety and depression chronic [facility] 2024 8:23am Borderline type 2 diabetes mellitus chronic June 11, 2024 8:23am Hypertension chronic June 11, 2024 8:23am Obstructive sleep apnea chronic [facility] 2024 8:23am Polycystic kidney disease chronic June 11, 2024 8:23am [facility] Work Phone: 1(660) 402-307003-10-2025 Evaluation note* Diagnosis Onset Date Resolution Status Admit Date Elevated antinuclear antibod y (FRANK) level acute June 11, 2024 8:23am Anxiety and depression chronic [facility] 2024 8:23am Borderline type 2 diabetes mellitus chronic June 11, 2024 8:23am Hypertension chronic June 11, 2024 8:23am Obstructive sleep apnea chronic [facility] 2024 8:23am Polycystic kidney disease chronic June 11, 2024 8:23am Knee pain, left acute October 08, 2024 11:41am [facility] Work Phone: 1(459) 391-381102-28-2024 History of Present illness Narrative* Polo Khan [...] PATIENT PRESENTS WITH AN IMPLANTABLE OR ATTACHED TELEPHONE RECORDER: No RADIOLOGY DEPARTMENT: Mammography PERIPHERAL IV DATA: Not applicable SIGNED BY: Keisha Kelley June 01, 2023 4:11 PM documented in this encounterUniversity Hospitals [facility]02-20-2024 History of Present illness Narrative* Mohini Sanchez APRN.CNP - 05/24/2023 3:46 PM EST Business Administration Professor offered: Patient declines. Isi is a 58 [...] Comment: Pt also had 2 Step- children Child Health Associate History LMP: 10/29/2020 (Exact Date), Postmenopausal Age at Menarche: Age at First : Age at Menopause: Child Health Associate History Comments: Sexual Activity: Yes; Male Contraception: [...] FLX DX W/COLLJ SPEC WHEN PFRMD 02/18/2017 [facility] DILATION & CURETTAGE DX&/THER NONOBSTETRIC 1996 Dilation & curettage FAMILY HISTORY Problem Relation Age of Onset Hypertension Father Coronary Artery Disease Father first [place]/angioplasty age 40's -- MULTPLE interventions other (aortic [...] external genitalia normal, normal Bartholin's glands, urethra, [place] Pal[place] Y's glands, no vulvar lesions, no cervical lesions, [...] year or sooner as needed Mohini Sanchez APRN.CREDIT RATING INSPECTOR documented in this encounterUniversity [facility]als [facility]02-20-2023 History of Present illness Narrative* Rosemary Metzger [...] Comment: Pt also had 2 Step- children Child Health Associate History LMP: 10/29/2020 (Exact Date), Postmenopausal Age at Menarche: Age at First : Age at Menopause: Child Health Associate History Comments: Sexual Activity: Yes; Male Contraception: [...] FLX DX W/COLLJ SPEC WHEN PFRMD 02/18/2017 [facility] DILATION & CURETTAGE DX&/THER NONOBSTETRIC 1996 Dilation & curettage FAMILY HISTORY Problem Relation Age of Onset Hypertension Father Coronary Artery Disease Father first [place]/angioplasty age 40's -- MULTPLE interventions other (aortic [...] external genitalia normal, normal Bartholin's glands, urethra, [place] Y's glands, no vulvar lesions, no cervical lesions, [...] needed Rosemary Metzger MD documented in this encounterUniversity Hospitals Geneva [facility] Center09-13-2022 Miscellaneous Notes* Telephone Encounter - Verónica Abbasi - 12/15/2021 2:20 PM EDT Patient is scheduled for mammogram screening 03/01/22 (requested to be scheduled on that specific date). Please submit order prior to appointment. Thank you. documented in this encounterUniversity Hospitals Geneva Medical Center01-20-2014 History of Past illness Narrative* Problem Noted Date Resolved Date Hypothyroidism 04/23/2013 03/25/2016 Routine general medical exam ination at a health care facility 11/07/2009 05/11/2012 Overview: 11/07/2009, from Dr. Dinero Routine gynecological examination 11/07/2009 05/11/2012 Overview: [facility], [facility] for Prescription of Oral Cont raceptives 03/30/2005 05/11/2012 documented as of this encounter (statuses as of 12/21/2021) [facility]01-20-2014 History of Past illness Narrative* Problem Noted Date Resolved Date Hypothyroidism 04/23/2013 03/25/2016 Routine general medical exam ination at a health care facility 11/07/2009 05/11/2012 Overview: 11/07/2009, from Dr. Dinero Routine gynecological examination 11/07/2009 05/11/2012 Overview: [facility], [facility] for Prescription of Oral Cont raceptives 03/30/2005 05/11/2012 documented as of this encounter (statuses as of 05/24/2022) [facility] History of Past illness Narrative* Problem Noted Date Diagnosed Date Resolved Date Hypothyroidism 04/23/2013 03/25/2016 Routine general medical exam ination at a health care facility 11/07/2009 05/11/2012 Overview: 11/07/2009, from Dr. Dinero Routine gynecological examination 11/07/2009 05/11/2012 Overview: [facility], [facility] for Presc ription of Oral Contraceptives 03/30/2005 05/11/2012 documented as of this encounter (statuses as of 02/06/2023) [facility]01[facility] History of Past illness Narrative* Problem Noted Date Diagnosed Date Resolved Date Hypothyroidism 04/23/2013 03/25/2016 Routine general medical exam ination at a health care facility 11/07/2009 05/11/2012 Overview: 11/07/2009, from Dr. Dinero Routine gynecological examination 11/07/2009 05/11/2012 Overview: [facility], [facility] for Presc ription of Oral Contraceptives 03/30/2005 05/11/2012 documented as of this encounter (statuses as of 05/24/2023) [facility]01-[facility] History of Past illness Narrative* Problem Noted Date Diagnosed Date Resolved Date Hypothyroidism 04/23/2013 03/25/2016 Routine general medical exam ination at a health care facility 11/07/2009 05/11/2012 Overview: 11/07/2009, from Dr. Dinero Routine gynecological examination 11/07/2009 05/11/2012 Overview: [facility], [facility] for Presc ription of Oral Contraceptives 03/30/2005 05/11/2012 documented as of this encounter (statuses as of 06/02/2023) [facility] CenterEvaluation note* Diagnosis Onset Date Resolution Status Anxiety and depression chron ic Hyperlipemia chronic Hypertension chronic Polycystic kidney disease [facility] Work Phone: Evaluation note* Diagnosis Onset Date Resolution Status Anxiety and depression chron ic Hyperlipemia chronic Hypertension chronic Polycystic kidney disease [facility] Cerebrovascular disease acut e Complement abnormality acute Memory loss due to medical condition acute [facility] Work Phone: Evaluation note* Diagnosis Onset Date Resolution Status Anxiety and depression chron ic Hyperlipemia chronic Hypertension chronic Polycystic kidney disease [facility] Cerebrovascular disease acut e Complement abnormality acute Memory loss due to medical condition acute Health care maintenance acut e Anxiety and depression chron ic Hypertension chronic Polycystic kidney disease [facility] Work Phone: Evaluation note* Diagnosis Encounter for screening mammogram for malignant neoplasm of breast- Primary Other screening mammogram documented in this encounter [facility] note* Diagnosis Onset Date Resolution Status Health care maintenance acut e Post-viral cough syndrome [place] Anxiety and depression chron ic Hypertension chronic Polycystic kidney disease [facility] 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 Chest congestion acute Cough acute [facility] Work Phone: Evaluation note* Diagnosis Encounter for gynecological examination (general) (routine) without abnormal findings- Primary Encounter for screening mammogram for breast cancer documented in this encounter [facility] note* Diagnosis Onset Date Resolution Status Health care maintenance acut e Allergies chronic Anxiety and depression chron ic Hyperlipemia chronic Hypertension [facility] Work Phone: Evaluation note* Diagnosis Encounter for screening mammogram for malignant neoplasm of breast Other screening mammogram [facility] this [facility]* Diagnosis Encounter for gynecological examination (general) (routine) without abnormal findings- Primary Encounter for screening mammogram for breast cancer documented in this encounter [facility] note* Diagnosis Encounter for screening mammogram for breast cancer documented in this encounter [facility] note* Diagnosis Onset Date Resolution Status Acute sinusitis, unspecified acute 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 Anxiety and depression chron ic Borderline type 2 diabetes mellitus chronic Hypertension chronic Insomnia chronic [facility] Work Phone: Evaluation note* Diagnosis Encounter for gynecological examination (general) (routine) without abnormal findings- Primary Encounter for screening for human papillomavirus (HPV) Special screening examination for human papillomavirus (HPV) Pap smear for cervical cancer screening Screening for malignant neoplasm of the cervix Encounter for screening mammogram for breast cancer Vaginal atrophy Postmenopausal atrophic vaginitis documented in this encounter [facility]* Diagnosis Breast cancer screening by mammogram documented in this encounter [facility] for referral (narrative)* Diagnostic Procedure Only (Routine) - Pending Review Specialty Diagnoses / Procedures Referred By Brain abdullahi Referred To Contact [facility] Diagnoses Encounter for screening mammogram for malignant neoplasm of breast Procedures ARMANDO SCREENING SCREENING MAMMOGRAPHY BI 2-VIEW BREAST INC Rosemary Brambila MD [address] [place] [address] [facility] [address] [place] [address] Referral ID Status Reason Start Date Expiration Date Visits Requested Visits Authorized [id number] Pending Review Auto-Generat ed Referral 12/21/2021 01/14/2023 1 1 T [facility] for referral (narrative)* Diagnostic Procedure Only (Routine) - Authorized Specialty Diagnoses / Procedures Referred By Brain abdullahi Referred To Contact [facility] Diagnoses Encounter for gynecological examination (general) (routine) without abnormal findings Encounter for screening mammogram for breast cancer Procedures ARMANDO SCREENING W MOMO SCREENING DIGITAL BREAST TOMOSYNTHESIS BI SCREENING MAMMOGRAPHY BI 2-VIEW BREAST INC Rosemary Brambila MD [address] [place] [address] [facility] [address] [address] Referral ID Status Reason Start Date Expiration Date Visits Requested Visits Authorized [id number] Authorized Auto-Generat ed Referral 05/24/2022 06/23/2023 1 1 [facility] for referral (narrative)* Diagnostic Procedure Only (Routine) - Closed Specialty Diagnoses / Procedures Referred By Brain abdullahi Referred To Contact [facility] Diagnoses Encounter for screening mammogram for malignant neoplasm of breast Procedures ARMANDO SCREENING SCREENING MAMMOGRAPHY BI 2-VIEW BREAST INC CAD Rosemary Metzger MD [address] [place] [address] [facility] [address] [place] [address] Referral ID Status Reason Start Date Expiration Date V isits Requested Visits Authorized [id number] Closed Auto-Generate d Referral 12/21/2021 01/14/2023 1 1 [facility] for referral (narrative)* Diagnostic Procedure Only (Routine) - Pending Review Specialty Diagnoses / Procedures Referred By Contac t Referred To Contact [facility] Diagnoses Encounter for screening mammogram for breast cancer Procedures ARMANDO SCREENING W MOMO SCREENING DIGITAL BREAST TOMOSYNTHESIS BI SCREENING MAMMOGRAPHY BI 2-VIEW BREAST INC CAD [employer]mile[employer]ini APRN.CREDIT RATING INSPECTOR [address] [place] [address] [facility] [address] [place] [address] Referral ID Status Reason Start Date Expiration Date Visits Requested Visits Authorized [id number] Pending Review Auto-Generat ed Referral 05/24/2023 06/22/2024 1 1 [facility] for referral (narrative)* Diagnostic Procedure Only (Routine) - Closed Specialty Diagnoses / Procedures Referred By Contac t Referred To Contact [facility] Diagnoses Encounter for screening mammogram for breast cancer Procedures ARMANDO SCREENING W MOMO SCREENING DIGITAL BREAST TOMOSYNTHESIS BI SCREENING MAMMOGRAPHY BI 2-VIEW BREAST INC CAD [employer]mileMohini APRN.CREDIT RATING INSPECTOR [address] [place] [address] [facility] [address] [place] [address] Referral ID Status Reason Start Date Expiration Date V isits Requested Visits Authorized [id number] Closed Auto-Generate d Referral 05/24/2023 06/22/2024 1 1 [facility] for referral (narrative)No reason for referral information [facility]WMer[facility] Work [facility]: Reason for visit Narrative* Diagnostic Procedure Only (Routine) - Closed Specialty Diagnoses / Procedures Referred By Contac t Referred To Contact [facility] Diagnoses Encounter for screening mammogram for malignant neoplasm of breast Procedures ARMANDO SCREENING SCREENING MAMMOGRAPHY BI 2-VIEW BREAST INC CAD Rosemary Metzger MD [address] [place] [place] [address] [facility] [address] [place] [address] Referral ID Status Reason Start Date Expiration Date V isits Requested Visits Authorized [id number] Closed Auto-Generate d Referral 12/21/2021 01/14/2023 1 1 [facility] for visit Narrative* Diagnostic Procedure Only (Routine) - Closed Specialty Diagnoses / Procedures Referred By Contac t Referred To Contact [facility] Diagnoses Encounter for screening mammogram for breast cancer Procedures ARMANDO SCREENING W MOMO SCREENING DIGITAL BREAST TOMOSYNTHESIS BI SCREENING MAMMOGRAPHY BI 2-VIEW BREAST INC CAD Mohini Sanchez APRN.CREDIT RATING INSPECTOR [address] [place] [address] [facility] [address] [place] [address] Referral ID Status Reason Start Date Expiration Date V isits Requested Visits Authorized [id number] Closed Auto-Generate d Referral 05/24/2023 06/22/2024 1 1 [facility] for visit Narrative* Diagnostic Procedure Only (Routine) - Closed Specialty Diagnoses / Procedures Referred By Contac t Referred To Contact [facility] Diagnoses Breast cancer screening by mammogram Procedures ARMANDO SCREENING W MOMO SCREENING DIGITAL BREAST TOMOSYNTHESIS BI SCREENING MAMMOGRAPHY BI 2-VIEW BREAST INC CAD Mohini Sanchez APRN.CREDIT RATING INSPECTOR [address] [place] [address] Phone: tel: fax: [facility] [address] [place] [address] Referral ID Status Reason Start Date Expiration Date V isits Requested Visits Authorized [id number] Closed Auto-Generate d Referral 05/10/2024 06/08/2025 1 1 [facility] Summary Purpose Family History No Family History [...] Yes December 31, 2020 9:25am Power of Proj Mgr Yes December 9:25am Advance Directive Response Recorded Date/ Time Living Will Yes December 31, 2020 8:25am Power of Proj Mgr Yes December 8:25am Advance Directive Response Recorded Date/ Time Living Will Yes April 07 5:54pm Power of Proj Mgr Yes April 07 5:54pm Advance Directive Response Recorded Date/ Time Living Will Yes March 04 1:15am Do you have a Healthcare Power of Proj Mgr? Yes March 04, 2024 1:15am Living Will Yes May 05 2:45am Do you have a Healthcare Power of Proj Mgr? Yes May 05, 2024 2:45am Living Will Yes June 02, 2024 2:08am Do you have a Healthcare Power of Proj Mgr? Yes June 02, 2024 2:08am Living Will Yes April 04 1:11am Do you have a Healthcare Power of Proj Mgr? Yes April 04, 2024 1:11am Advance Directive Response Recorded Date/ Time Living Will Yes May 05 2:45am Do you have a Healthcare Power of Proj Mgr? Yes May 05, 2024 2:45am Living Will Yes June 02, 2024 2:08am Do you have a Healthcare Power of Proj Mgr? Yes June 02, 2024 2:08am Living Will Yes July 03, 2024 12:19am Do you have a Healthcare Power of Proj Mgr? Yes July 03, 2024 12:19am Living Will Yes April 04 1:11am Do you have a Healthcare Power of Proj Mgr? Yes April 04, 2024 1:11am Advance Directive Response Recorded Date/ Time Living Will Yes May 05 2:45am Do you have a Healthcare Power of Proj Mgr? Yes May 05, 2024 2:45am Living Will Yes June 02, 2024 2:08am Do you have a Healthcare Power of Proj Mgr? Yes June 02, 2024 2:08am Living Will Yes July 03, 2024 12:19am Do you have a Healthcare Power of Proj Mgr? Yes July 03, 2024 12:19am Living Will Yes August 02, 2024 12 :10am Do you have a Healthcare Power of Proj Mgr? Yes August 02, 2024 12:10am Advance Directive Response Recorded Date/ Time Living Will Yes June 02, 2024 2:08am Do you have a Healthcare Power of Proj Mgr? Yes June 02, 2024 2:08am Living Will Yes July 03, 2024 12:19am Do you have a Healthcare Power of Proj Mgr? Yes July 03, 2024 12:19am Living Will Yes August 02, 2024 12 :10am Do you have a Healthcare Power of Proj Mgr? Yes August 02, 2024 12:10am Living Will Yes September 02, 2024 1 2:08am Do you have a Healthcare Power of Proj Mgr? Yes September 02, 2024 12:08am Advance Directive Response Recorded Date/ Time Living Will Yes July 03, 2024 12:19am Do you have a Healthcare Power of Proj Mgr? Yes July 03, 2024 12:19am Living Will Yes August 02, 2024 12 :10am Do you have a Healthcare Power of Proj Mgr? Yes August 02, 2024 12:10am Living Will Yes September 02, 2024 1 2:08am Do you have a Healthcare Power of Proj Mgr? Yes September 02, 2024 12:08am Advance Directive Response Recorded Date/ Time Living Will Yes August 02, 2024 12 :10am Do you have a Healthcare Power of Proj Mgr? Yes August 02, 2024 12:10am Living Will Yes September 02, 2024 1 2:08am Do you have a Healthcare Power of Proj Mgr? Yes September 02, 2024 12:08am Advance Directive Response Recorded Date/ Time Living Will Yes September 02, 2024 1 2:08am Do you have a Healthcare Power of Proj Mgr? Yes September 02, 2024 12:08am Chief Complaint [...] section and content) DATE CREATED AUTHOR 09/27/2017 [facility] DATE CREATED AUTHOR AUTHOR'S ORGANIZ ATION 11/21/2020 [facility] DATE CREATED AUTHOR AUTHOR'S ORGANIZ ATION 08/09/2024 [facility] DATE CREATED AUTHOR AUTHOR'S ORGANIZ ATION 02/12/2025 [facility] Goals (unrecognized section and content) Goals [...] or prosecute any alcohol or drug abuse patient.[facility] CenterIn the event this information is protected by the Federal Confidentiality of Alcohol and Drug Abuse Patient Records regulations: The Federal rules restrict any use of the information to criminally investigate or prosecute any alcohol or drug abuse patient.[facility] CenterIn the event this information is protected by the Federal Confidentiality of Alcohol and Drug Abuse Patient Records regulations: The Federal rules restrict any use of the information to criminally investigate or prosecute any alcohol or drug abuse patient.[facility] CenterIn the event this information is protected by the Federal Confidentiality of Alcohol and Drug Abuse Patient Records regulations: The Federal rules restrict any use of the information to criminally investigate or prosecute any alcohol or drug abuse patient.[facility] CenterIn the event this information is protected by the Federal Confidentiality of Alcohol and Drug Abuse Patient Records regulations: The Federal rules restrict any use of the information to criminally investigate or prosecute any alcohol or drug abuse patient.[facility] CenterIn the event this information is protected by the Federal Confidentiality of Alcohol and Drug Abuse Patient Records regulations: The Federal rules restrict any use of the information to criminally investigate or prosecute any alcohol or drug abuse patient.[facility] CenterIn the event this information is protected by the Federal Confidentiality of Alcohol and Drug Abuse Patient Records regulations: The Federal rules restrict any use of the information to criminally investigate or prosecute any alcohol or drug abuse patient.[facility] CenterIn the event this information is protected by the Federal Confidentiality of Alcohol and Drug Abuse Patient Records regulations: The Federal rules restrict any use of the information to criminally investigate or prosecute any alcohol or drug abuse patient.[facility] CenterIn the event this information is protected by the Federal Confidentiality of Alcohol and Drug Abuse Patient Records regulations: The Federal rules restrict any use of the information to criminally investigate or prosecute any alcohol or drug abuse patient.[facility] Reason for Visit (unrecogniz ed section and content) Reason Comments Orders Reason Comments Yearly Exam With Mammogram Reason Comments [facility] Teams (unrecognized sec tion and content) Team Status: Active Member Role Status Dates Dr. Nadine Salamanca MD Family Provider Active Dr. Nadine Salamanca MD Primary Care Provider Active Team Status: Inactive Member Role Status Dates Dr. Nadine Salamanca MD Primary Care Kamila jameson, Attending Provider, Referring Provider Active Team Status: [...] Care Provider, Refer ring Provider Active Jori CAMPOS PA Attending Provider Active Team Status: Active [...] Provider Active Start: October 08, 2024 Ludivina Yang PA, PA Attending Provider Active Start: October 08, 2024 Ludivina Yang PA, PA [...] End: October 08, 2024 Ludivina CAMPOS, PA Referring Provider Active Start: October 08, [...] BE BASED ON THE PRIMARY CLINICAL RECORDS. [facility] [employer] [facility]. provides no warranty or guarantee of the accuracy or completeness of information in this document.
[2025-02-25 00:30] LABS: Hematocrit 43.4 % (37-47); Hemoglobin 14.0 g/dL (12.0-15.0); Immature Granulocytes Count 0.050 X10^3/uL (0.0-0.0); Mean Corp Hgb Conc 32.3 g/dL (32-36); Mean Corpuscular Volume 90.6 fL (81-99); Mean Platelet Vol. 9.9 fl (6.2-12.0); NRBC Flagged by Analyzer 0 % (0-5); Platelet Count 242 K/mm3 (150-450); RBC Distribution Width CV 12.4 % (11.6-14.6); RBC Distribution Width SD 41.2 fl (35.1-43.9); Red Blood Count 4.79 M/mm3 (4.2-5.4); White Blood Count 10.3 K/mm3 (4.4-11.0)
[2025-02-25] MEDS: 0.9% Normal Saline (1000mL) 1,000 ML 999 ML IV (00:34)
--- NOTE | 2025-02-25 00:40 | RAD_ITS ---
PROCEDURE: CHEST 1 VIEW (PORTABLE) 02/25/2025 REASON FOR EXAM: THROAT/CHEST PAIN TECHNIQUE: Frontal view of the chest. COMPARISON: 08/03/2024 FINDINGS: The lungs are clear. The cardiomediastinal silhouette appears unremarkable. No acute osseous abnormality. RAD/Chest 1 View (Portable) IMPRESSION: As above. Reading Location: [id number]
[2025-02-25 01:24] LABS: Lipase 37 U/L (13-75)
[2025-02-25 01:27] LABS: AST(SGOT) 37 U/L (<=31); Alanine Aminotransfer ALT/SGPT 29 U/L (<=34); Albumin, Serum 4.1 g/dL (3.5-5.0); Alkaline Phosphatase 95 U/L (35-104); Anion Gap 14 (5-15); BUN 16 mg/dL (4-19); BUN/Creat Ratio 9.9 RATIO (10-20); Bilirubin, Direct < 0.08 mg/dL (0.00-0.30); Calcium,Total 9.2 mg/dL (7.6-11.0); Carbon Dioxide 22.1 mmol/L (21.0-32.0); Chloride 108 mmol/L (98-108); Estimated Creatinine Clearance 50.28 ml/min (50-250); Globulin 2.9 g/dL (2.2-4.2); Glucose 148 mg/dL (70-99); Potassium 4.7 mmol/L (3.3-5.1)
[2025-02-25 02:06] LABS: Mucous, Urine 0 SEEN /hpf (<or=2+); Red Blood Cells-Urine 0 SEEN /hpf (0-5); Squamous Epithelial Cells - UA 0 SEEN /hpf (5-10)
[2025-02-25 02:07] LABS: Color, Urine Yellow (Yellow); Glucose, Dipstick Normal (Normal); Ketone-Dipstick Negative (Negative); Leukocyte Esterase-Dipstick 500 /ul (Negative); Nitrite-Dipstick Negative (Negative); Occult Blood-Urine 10 /ul (Negative); Protein-Dipstick 15 mg/dl (Negative); Specific Gravity, Urine 1.010 (1.002-1.030); Urine Bilirubin Dipstick Negative (Negative)
[2025-02-25] MEDS: Glucagon 1 MG/ML Syringe IV (02:11)
--- NOTE | 2025-02-25 03:25 | EX.ED.DYSGE1 ---
HPI History of Present Illness Chief Complaint: Nausea/Vomiting Informant: patient and spouse/S.O. Narrative Narrative: Patient is a 59-year-old female with past medical history of hypertension hyperlipidemia and previous stroke but currently only on aspirin. She states she was eating steak around 6 PM when she feel like a piece got stuck in her upper throat. She states that she kind of threw up and brought a piece of food up with it which she believed was the steak that was stuck in her throat. However she states that since that time she has had persistent throat/midsternal chest pain and has continued to have bouts of vomiting whenever she tries to eat or drink. She states symptoms have not improved over the last 5 to 6 hours and secondary to this she presents for evaluation She states nothing like this has ever happened before [facility] Medical History Obstructive sleep apnea Elevated antinuclear antibody (RFANK) level Hypersomnia Skin lesion of scalp Acute sinusitis, unspecified Borderline type 2 diabetes mellitus Blood glucose elevated Anxiety and depression Allergies Chronic sinusitis Sinusitis Bronchitis Cough Chest congestion Post-viral cough syndrome Health care maintenance Complement abnormality Occipital stroke Back pain History of bloody stools Kidney disease HTN (hypertension) Mitral valve prolapse Sciatica Hyperlipemia Seasonal allergies Home Medications ?Medication ?Instructions ?Recorded ?Last Taken ?Type ascorbic acid (vitamin C) 1,000 mg 1 g PO DAILY Check with primary 04/01/17 Unknown History tablet doctor aspirin 81 mg chewable tablet 162 mg (2 x 81 mg) PO DAILY #60 03/24/21 Unknown Rx tabs multivitamin 1 tab PO DAILY 11/03/22 Unknown History hydroxychloroquine 200 mg tablet 200 mg PO BID 02/17/24 Unknown History fluticasone propionate 50 2 spray intranasal DAILY Check 03/16/24 Unknown Rx mcg/actuation nasal with primary doctor #48 grams spray,suspension tolvaptan (polycys kidney dis) 60 See Rx Instructions PO PER PKG DIR 06/11/24 Unknown History mg (AM)/30 mg (PM) tablets (Jynarque) etanercept 50 mg/mL (1 mL) 50 mg subcut QWEEK 10/08/24 Unknown History subcutaneous pen injector (Enbrel SureClick) prednisone 10 mg tablet 10 mg PO .COMPLEX #30 tabs 10/08/24 Unknown Rx fluoxetine 20 mg capsule 20 mg PO DAILY #90 caps 11/14/24 Unknown Rx lisinopril 20 mg tablet 20 mg PO DAILY #90 tabs 12/04/24 Unknown Rx hydroxyzine HCl 25 mg tablet 25 mg PO QHS PRN Anxiety/Sleep #90 02/08/25 Unknown Rx tabs rosuvastatin 40 mg tablet 40 mg PO QHS #90 tabs 02/08/25 Unknown Rx Allergy/AdvReac Type Severity Reaction Status Date / Time grass pollen Allergy Intermediate Other Verified 02/24/25 23:50 tree and shrub pollen Allergy Intermediate Other Verified 02/24/25 23:50 Family History Father Heart disease aortic aneurysm at 38 Hyperlipemia Hypertension Kidney disease Grandmother Breast cancer Grandmother Cancer uterine Sister Brain aneurysm passed at 27 Grandfather CVA (cerebral vascular accident) Surgical History History of delivery History of D&C Normal colonoscopy Social History Smoking Status: Never smoker Electronic Cigarette Use: not used second hand exposure: No alcohol intake: current alcohol intake frequency: a few times a week Alcohol type: wine substance use type: does not use what type of physical activity do you participate in: walking frequency: daily ROS ROS ED Constitutional Constitutional ED: Denies chills or fever(s) ENT ENT ED: Reports sore throat and other Details: Positive difficulty swallowing Cardiovascular Cardiovascular: Denies chest pain Respiratory/Chest Respiratory/Chest: Denies cough or dyspnea Gastrointestinal Gastrointestinal: Reports vomiting; Denies abdominal pain, diarrhea or nausea Genitourinary Genitourinary ED: Reports urinary frequency; Denies dysuria Musculoskeletal Musculoskeletal: Denies back pain or neck pain Integumentary Denies rash Neurologic Neurologic: Denies headache(s) Hematologic/Lymphatic Hematologic/Lymphatic: Denies easy bleeding or easy bruising EXAM Physical Exam Const Vital Signs: 02/24/25 23:50 02/25/25 01:50 02/25/25 03:00 Temperature 97.2 F L 97.6 F L Temperature Source Temporal Oral Pulse Rate 104 H 77 87 Respiratory Rate 25 H 16 16 Blood Pressure 185/81 H 137/70 H 149/74 H Blood Pressure Mean 115 92 99 Pulse Ox 98 95 96 Oxygen Delivery Method Room Air Room Air Room Air Positive well nourished, well developed and obese General Appearance ED: well developed; Negative for pallor Nutritional Appearance: obese HEENT Reports moist mucous membranes HEENT Narrative: Normocephalic atraumatic No tongue or lip swelling no oral lesions no airway edema or compromise No secondary findings in the posterior pharynx to suggest infection Eyes PERRL and EOMs intact bilaterally General Eye ED: Negative for scleral icterus Neck supple Neck Narrative: No subcutaneous emphysema or pain with extremity potation of the thyroid cartilage noted Chest Wall palpation of chest normal Resp normal respiratory effort and clear to auscultation bilaterally Resp Narrative: No nasal flaring retractions tachypnea or accessory muscle use Cardio regular rate and regular rhythm Rate: other Other Details: Radial and carotid pulses are equal and symmetric GI normal to inspection, nondistended, normoactive bowel sounds, non-tender, non-distended and no masses GI Narrative: No voluntary guarding or rigidity or pulsatile mass No peritoneal signs Auscultation: normoactive bowel sounds Palpation: soft Extremity normal to inspection Neuro oriented x3, CN's II-XII intact bilaterally and no sensory deficits noted Sensorium / Orientation: alert Motor Exam: strength 5/5 throughout Psych Mood & Affect: anxious Skin no rashes or lesions noted General Skin Exam: Negative for jaundice or pallor MDM MDM MDM Narrative Medical decision making narrative: Patient arrived to the ER hypertensive but otherwise with stable vitals. She reported a an esophageal food bolus around 6 PM. Her history and exam would indicate that there is no concern for airway obstruction as she is talking in full sentences and her pulse ox is 98 to 100%. As she reports midsternal chest discomfort this is most likely from esophageal spasm or potential abrasion due to the food bolus but in order to rule out acute coronary syndrome or Boerhaave syndrome I did elect to perform an EKG as well as chest x-ray. EKG showed normal sinus rhythm without ischemic findings going against ACS. X-ray revealed no sign of perforation or free air going against Boerhaave syndrome. Basic blood work revealed no signs of acute blood loss anemia or clinically significant electrolyte abnormality or acute kidney injury. Even though patient had urinary frequency she had no signs of UTI as her urine sample shows no white blood cells no bacteria and is nitrite negative. The patient initially reported the food felt like it was obstructed in the upper throat but on physical exam she is able to swallow without difficulty but after 20 to 30 seconds she has emesis of what ever fluid she just drank indicating a lower esophageal obstruction. I attempted to relax the muscle and help the food bolus to pass by giving IV morphine Ativan and glucagon. Despite this there was no resolution of symptoms. Therefore the case was discussed with fisher purse seine Dr. Jack. He will take the patient to endoscopy later this morning in order to perform an EGD and remove the food bolus. As the patient is hemodynamically stable with out signs of airway compromise or distress there is no emergent need for this and should be held in the ER until she can be taken to the endoscopy suite. This plan of care was discussed with the patient and and they are agreeable to it History & Record Review Discussion w/independent historian: Patient and Significant other Lab Data Attestation: I reviewed the patient's lab results. Labs: Laboratory Results - last 24 hr 02/25/25 02/25/25 00:22 01:57 WBC 10.3 RBC 4.79 Hgb 14.0 Hct 43.4 MCV 90.6 MCH 29.2 MCHC 32.3 RDW Std Deviation 41.2 RDW Coeff of Alanis 12.4 Plt Count 242 MPV 9.9 Immature Gran % (Auto) 0.500 Neut % (Auto) 67.9 Lymph % (Auto) 18.9 L [place] % (Auto) 7.1 Eos % (Auto) 4.7 Baso % (Auto) 0.9 Absolute Neuts (auto) 7.0 Absolute Lymphs (auto) 1.94 Nucleated RBC % 0 Sodium 144 Potassium 4.7 Chloride 108 Carbon Dioxide 22.1 Anion Gap 14 BUN 16 Creatinine 1.57 H Estim Creat Clear Calc 50.28 Est GFR (MDRD) Non-Af 38 L BUN/Creatinine Ratio 9.9 L Glucose 148 H Calcium 9.2 Total Bilirubin 0.32 Direct Bilirubin < 0.08 AST 37 H ALT 29 Alkaline Phosphatase 95 Total Protein 7.0 Albumin 4.1 Globulin 2.9 Lipase 37 Urine Color Yellow Urine Clarity Clear Urine pH 6.5 Ur Specific [place] 1.010 Urine Protein 15 H Urine Glucose (UA) Normal Urine Ketones Negative Urine Occult Blood 10 H Urine Nitrite Negative Urine Bilirubin Negative Urine Urobilinogen Normal Ur Leukocyte Esterase 500 H Urine RBC 0 SEEN Urine WBC 0-5 SEEN Ur Squamous Epith Cells 0 SEEN Urine Bacteria 0 SEEN Urine Mucus 0 SEEN Radiography Diagnostic Testing: Clinical Impression(s) from Imaging Studies Chest X-Ray 02/25/25 00:40 IMPRESSION: As above. 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
[2025-02-25] MEDS: 0.9% Normal Saline (1000mL) 1,000 ML 200 ML IV (04:33)
--- OUTSIDE RECORDS SUMMARY | 2025-02-25 07:05 | XMS RPT_ITS | CCD ---
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 [facility] - Chemistry and C hemistry - challengeOrdered By: Aaron Matthews on 11-12-2024 AST [Catalytic activity/Vol] 23 U/L <32 [facility] Liver Profileon 11-12-2024 Albumin [Mass/Vol] 4.3 g/dL Normal 3.5-5.0 [facility] Comment on above: Performed By: #### L 500.3400 #### [facility] [address] [place], [place], [id number] ALK PHOS 87 U/L Normal 35-104 [facility] Comment on above: Performed By: #### L 500.3400 #### [facility] [address] [place], [place], [id number] (212) ALT [Catalytic activity/Vol] 28 U/L Normal <=34 [facility] Comment on above: Performed By: #### L 500.3400 #### [facility] [address] [place], [address] AST [Catalytic activity/Vol] 23 U/L Normal <=31 [facility] Comment on above: Performed By: #### L 500.3400 #### [facility] [address] [place], [address] Bilirubin [Mass/Vol] 0.38 mg/dL Normal 0.00-1.30 [facility] Comment on above: Performed By: #### L 500.3400 #### [facility] [address] [place], [address] Bilirubin.direct [Mass/Vol] 0.18 mg/dL Normal 0.00-0.30 [facility] Comment on above: Performed By: #### L 500.3400 #### [facility] [address] [place], [address] Globulin (S) [Mass/Vol] 2.5 g/dL Normal 2.2-4.2 [facility] Comment on above: Performed By: #### L 500.3400 #### [facility] [address] [place], [address] T PROT 6.8 g/dL Normal 5.9-8.4 [facility] Comment on above: Performed By: #### L 500.3400 #### [facility] [address] [place], [address] Serum globulin measurementOr dered By: Aaron Matthews on 11-12-2024 Globulin (S) [Mass/Vol] 2.5 g/dL 2.2-4.2 [facility] Serum or plasma alanine peralta otransferase (ALT) measurementOrdered By: Aaron Matthews on 11-12-2024 ALT [Catalytic activity/Vol] 28 U/L <35 [facility] Serum or plasma albumin paty urement (mass/volume)Ordered By: Aaron Matthews on 11-12-2024 Albumin [Mass/Vol] 4.3 g/dL 3.5-5.0 [facility] Serum or plasma alkaline elvia sphatase measurementOrdered By: Aaron Matthews on 11-12-2024 ALP [Catalytic activity/Vol] 87 U/L 35-104 [facility] Total proteinOrdered By: [facility] on 11-12-2024 Protein [Mass/Vol] 6.8 g/dL 5.9-8.4 [facility] Absolute lymphocyte countOrd ered By: Namrata Braden on 11-05-2024 Lymphocytes Auto (Unsp spec) [#/Vol] 3.30 10*3/uL 0.83-4.51 [facility] Absolute neutrophil countOrd ered By: Namrata Braden on 11-05-2024 Neutrophils (Bld) [#/Vol] 4.1 10*3/uL 2.0-7.7 [facility] Anion gap in Serum or Plasma Ordered By: Namrata Braden on 11-05-2024 Anion gap [Moles/Vol] 12 mmol/L 5-15 [facility] Automated lymphocyte count a s percentage of total leukocytesOrdered By: Namrata Braden on 11-05-2024 Lymphocytes/100 WBC Auto (Unsp spec) 35.0 % 19-41 [facility] BUN/creatinine ratioOrdered By: Namrata Braden on 11-05-2024 Urea nitrogen/Creatinine [Mass ratio] 12.3 mg/mg 10-20 [facility] Basophil percentageOrdered B y: Namrata Braden on 11-05-2024 Basophils/100 WBC (Bld) 1.3 % High 0-1 [facility] Bilirubin, totalOrdered By: Namrata Braden on 11-05-2024 Bilirubin [Mass/Vol] 0.41 mg/dL 0.00-1.30 [facility] CBC W/Diff, Automatedon Absolute Lymph 3.30 X10 3/uL Normal 0.83-4.51 [facility] Comment on above: Performed By: #### L 500.4050, L501.4700, L100.0100 #### [facility] [address] [place], [address] Absolute Neut 4.1 X10 3/uL Normal 2.0-7.7 [facility] Comment on above: Performed By: #### L 500.4050, L501.4700, L100.0100 #### [facility] [address] [place], [address] Basophils/100 WBC (Bld) 1.3 % High 0-1 [facility] Comment on above: Performed By: #### L 500.4050, L501.4700, L100.0100 #### [facility] [address] [place], [address] Eosinophils/100 WBC (Bld) 8.7 % High 0-5 [facility] Comment on above: Performed By: #### L 500.4050, L501.4700, L100.0100 #### [facility] [address] [place], [address] Erythrocyte distribution width (RBC) [Ratio] 13.5 % Normal 11.6-14.6 [facility] Comment on above: Performed By: #### L 500.4050, L501.4700, L100.0100 #### [facility] [address] [place], [address] Hematocrit (Bld) [Volume fraction] 43.6 % Normal 37-47 [facility] Comment on above: Performed By: #### L 500.4050, L501.4700, L100.0100 #### [facility] [address] [place], [address] Hemoglobin (Bld) [Mass/Vol] 13.9 g/dL Normal 12.0-15.0 [facility] Comment on above: Performed By: #### L 500.4050, L501.4700, L100.0100 #### [facility] [address] [place], [address] IG% 0.300 Normal 0.0-0.9 [facility] Comment on above: Result Comment: IG% - Immature Granulocytes (promyelocytes, myelocytes and metamyelocytes) > 1% indicates that a LEFT SHIFT is Present. Performed By: #### L 500.4050, L501.4700, L100.0100 #### [facility] [address] [place], [address] Lymphocytes/100 WBC (Bld) 35.0 % Normal 19-41 [facility] Comment on above: Performed By: #### L 500.4050, L501.4700, L100.0100 #### [facility] [address] [place], [address] MCH (RBC) [Entitic mass] 29.0 pg Normal 27.0-32.0 [facility] Comment on above: Performed By: #### L 500.4050, L501.4700, L100.0100 #### [facility] [address] [place], [address] MCHC (RBC) [Mass/Vol] 31.9 g/dL Low 32-36 [facility] Comment on above: Performed By: #### L 500.4050, L501.4700, L100.0100 #### [facility] [address] [place], [address] MCV (RBC) [Entitic vol] 91.0 fL Normal 81-99 [facility] Comment on above: Performed By: #### L 500.4050, L501.4700, L100.0100 #### [facility] [address] [place], [address] Monocytes/100 WBC (Bld) 11.0 % High 0-10 [facility] Comment on above: Performed By: #### L 500.4050, L501.4700, L100.0100 #### [facility] [address] [place], [address] Neutrophils/100 WBC (Bld) 43.7 % Low 47-70 [facility] Comment on above: Performed By: #### L 500.4050, L501.4700, L100.0100 #### [facility] [address] [place], [address] Nucleated RBC (Bld) [#/Vol] 0 10*3/uL Normal 0-5 [facility] Comment on above: Performed By: #### L 500.4050, L501.4700, L100.0100 #### [facility] [address] [place], [address] Platelet mean volume (Bld) [Entitic vol] 10.1 fL Normal 6.2-12.0 [facility] Comment on above: Performed By: #### L 500.4050, L501.4700, L100.0100 #### [facility] [address] [place], [address] Platelets (Bld) [#/Vol] 245 10*3/uL Normal 150-450 [facility] Comment on above: Performed By: #### L 500.4050, L501.4700, L100.0100 #### [facility] [address] [place], [address] RBC (Bld) [#/Vol] 4.79 10*6/uL Normal 4.2-5.4 [facility] Comment on above: Performed By: #### L 500.4050, L501.4700, L100.0100 #### [facility] [address] [place], [address] RDW SD 45.2 fl High 35.1-43.9 [facility] Comment on above: Performed By: #### L 500.4050, L501.4700, L100.0100 #### [facility] [address] [place], [address] WBC (Bld) [#/Vol] 9.4 10*3/uL Normal 4.4-11.0 [facility] Comment on above: Performed By: #### L 500.4050, L501.4700, L100.0100 #### [facility] Laboratory [address] [place], [address] Carbon dioxide, total [Moles /volume] in Central venous bloodOrdered By: Namrata Braden on 11-05-2024 CO2 [Moles/Vol] 25.8 mmol/L 21.0-32.0 [facility] Chloride assayOrdered By: Beth Braden on 11-05-2024 Chloride [Moles/Vol] 106 mmol/L 98-108 [facility] Comprehensive Metabolic Prof ilon 11-05-2024 Albumin [Mass/Vol] 4.3 g/dL Normal 3.5-5.0 [facility] Comment on above: Performed By: #### L 500.4050, L501.4700, L100.0100 #### [facility] [address] [place], [address] Albumin/Globulin [Mass ratio] 1.9 {ratio} Normal 0.9-2.4 [facility] Comment on above: Performed By: #### L 500.4050, L501.4700, L100.0100 #### [facility] [address] [place], [address] ALK PHOS 83 U/L Normal 35-104 [facility] Comment on above: Performed By: #### L 500.4050, L501.4700, L100.0100 #### [facility] [address] [place], [address] ALT [Catalytic activity/Vol] 30 U/L Normal <=34 [facility] Comment on above: Performed By: #### L 500.4050, L501.4700, L100.0100 #### [facility] [address] [place], [address] AST [Catalytic activity/Vol] 26 U/L Normal <=31 [facility] Comment on above: Performed By: #### L 500.4050, L501.4700, L100.0100 #### [facility] [address] [place], [address] Bilirubin [Mass/Vol] 0.41 mg/dL Normal 0.00-1.30 [facility] Comment on above: Performed By: #### L 500.4050, L501.4700, L100.0100 #### [facility] [address] [place], [address] BUN/CRE 12.3 RATIO Normal 10-20 [facility] Comment on above: Performed By: #### L 500.4050, L501.4700, L100.0100 #### [facility] [address] [place], [address] Calcium [Mass/Vol] 9.3 mg/dL Normal 7.6-11.0 [facility] Comment on above: Performed By: #### L 500.4050, L501.4700, L100.0100 #### [facility] [address] [place], [address] Chloride [Moles/Vol] 106 mmol/L Normal 98-108 [facility] Comment on above: Performed By: #### L 500.4050, L501.4700, L100.0100 #### [facility] [address] [place], [address] CO2 [Moles/Vol] 25.8 mmol/L Normal 21.0-32.0 [facility] Comment on above: Performed By: #### L 500.4050, L501.4700, L100.0100 #### [facility] [address] [place], [address] Creatinine [Mass/Vol] 1.32 mg/dL High 0.70-1.20 [facility] Comment on above: Performed By: #### L 500.4050, L501.4700, L100.0100 #### [facility] [address] [place], [address] GAP 12 Normal 5-15 [facility] Comment on above: Performed By: #### L 500.4050, L501.4700, L100.0100 #### [facility] [address] [place], [address] GFR/1.73 sq M.predicted among non-blacks MDRD (S/P/Bld) [Vol rate/Area] 47 mL/min/{1.73_m2} Low >60 [facility] Comment on above: Result Comment: mL/m in/1.73m2 CKD-EPI Creatinine Equation (2020) Performed By: #### L 500.4050, L501.4700, L100.0100 #### [facility] [address] [place], [address] Globulin (S) [Mass/Vol] 2.3 g/dL Normal 2.2-4.2 [facility] Comment on above: Performed By: #### L 500.4050, L501.4700, L100.0100 #### [facility] [address] [place], [address] Glucose [Mass/Vol] 81 mg/dL Normal 70-99 [facility] Comment on above: Performed By: #### L 500.4050, L501.4700, L100.0100 #### [facility] [address] [place], [address] Potassium [Moles/Vol] 4.5 mmol/L Normal 3.3-5.1 [facility] Comment on above: Performed By: #### L 500.4050, L501.4700, L100.0100 #### [facility] [address] [place], [address] Sodium [Moles/Vol] 144 mmol/L Normal 133-145 [facility] Comment on above: Performed By: #### L 500.4050, L501.4700, L100.0100 #### [facility] [address] [place], [address] T PROT 6.6 g/dL Normal 5.9-8.4 [facility] Comment on above: Performed By: #### L 500.4050, L501.4700, L100.0100 #### [facility] [address] [place], [address] Urea nitrogen [Mass/Vol] 16 mg/dL Normal 4-19 [facility] Comment on above: Performed By: #### L 500.4050, L501.4700, L100.0100 #### [facility] [address] [place], [address] Eosinophil percentageOrdered By: Namrata Braden on 11-05-2024 Eosinophils/100 WBC (Bld) 8.7 % High 0-5 [facility] Erythrocyte distribution wid th ratioOrdered By: Namrata Braden on 11-05-2024 Erythrocyte distribution width (RBC) [Ratio] 13.5 % 11.6-14.6 [facility] Erythrocyte distribution wid th standard deviationOrdered By: Namrata Braden on 11-05-2024 Erythrocyte distribution width (RBC) [Ratio] 45.2 fl High 35.1-43.9 [facility] Glomerular filtration rate ( GFR) estimation/1.73 sq m using serum, plasma, or whole bOrdered By: Namrata Braden on 11-05-2024 GFR/1.73 sq M.predicted among non-blacks MDRD (S/P/Bld) [Vol rate/Area] 47 mL/min/{1.73_m2} Low >60 [facility] Comment on above: mL/min/1.73m2 CKD-EP I Creatinine Equation (2020) Hematocrit Auto (Bld) [Volum e fraction]Ordered By: Namrata Braden on 11-05-2024 Hematocrit (Bld) [Volume fraction] 43.6 % 37-47 [facility] Hemoglobin measurementOrdere d By: Namrata Braden on 11-05-2024 Hemoglobin (Bld) [Mass/Vol] 13.9 g/dL 12.0-15.0 [facility] Immature granulocytes/100 WB C Auto (Bld)Ordered By: Namrata Braden on 11-05-2024 Immature granulocytes/100 WBC (Bld) 0.300 % 0.0-0.9 [facility] Comment on above: IG% - Immature Granu locytes (promyelocytes, myelocytes and metamyelocytes) > 1% indicates that a LEFT SHIFT is Present. Laboratory - Chemistry and C hemistry - challengeOrdered By: Namrata Braden on 11-05-2024 AST [Catalytic activity/Vol] 26 U/L <32 [facility] MCV (mean corpuscular volume ) determinationOrdered By: Namrata Braden on 11-05-2024 MCV (RBC) [Entitic vol] 91.0 fL 81-99 [facility] Mean corpuscular hemoglobin (MCH) determinationOrdered By: Namrata Braden on 11-05-2024 MCH (RBC) [Entitic mass] 29.0 pg 27.0-32.0 [facility] Mean corpuscular hemoglobin concentration (MCHC) determinationOrdered By: Namrata Braden on 11-05-2024 MCHC (RBC) [Mass/Vol] 31.9 g/dL Low 32-36 [facility] Mean platelet volume determi nationOrdered By: Namrata Braden on 11-05-2024 Platelet mean volume (Bld) [Entitic vol] 10.1 fL 6.2-12.0 [facility] [facility] Monocyte percentageOrdered B y: Namrata Braden on 11-05-2024 Monocytes/100 WBC (Bld) 11.0 % High 0-10 [facility] Neutrophil percentageOrdered By: Namrata Braden on 11-05-2024 Neutrophils/100 WBC (Bld) 43.7 % Low 47-70 [facility] Nucleated red blood cell per centageOrdered By: Namrata Braden on 11-05-2024 Nucleated RBC/100 WBC (Bld) [Ratio] 0 % 0-5 [facility] Platelet countOrdered By: Beth Brdaen on 11-05-2024 Platelets (Bld) [#/Vol] 245 10*3/uL 150-450 [facility] Potassium measurement (mass/ volume)Ordered By: Namrata Braden on 11-05-2024 Potassium (Unsp spec) [Mass/Vol] 4.5 mmol/L 3.3-5.1 [facility] RBC Auto (Bld) [#/Vol]Ordere d By: Namrata Braden on 11-05-2024 RBC (Bld) [#/Vol] 4.79 10*6/uL 4.2-5.4 [facility] Serum creatinine measurement (mass/volume)Ordered By: Namrata Braden on 11-05-2024 Creatinine [Mass/Vol] 1.32 mg/dL High 0.70-1.20 [facility] Serum globulin measurementOr dered By: Namrata Braden on 11-05-2024 Globulin (S) [Mass/Vol] 2.3 g/dL 2.2-4.2 [facility] Serum glucose measurement (m ass/volume)Ordered By: Namrata Braden on 11-05-2024 Glucose [Mass/Vol] 81 mg/dL 70-99 [facility] Serum or plasma alanine peralta otransferase (ALT) measurementOrdered By: Namrata Braden on 11-05-2024 ALT [Catalytic activity/Vol] 30 U/L <35 [facility] Serum or plasma albumin paty urement (mass/volume)Ordered By: Namrata Braden on 11-05-2024 Albumin [Mass/Vol] 4.3 g/dL 3.5-5.0 [facility] Serum or plasma albumin/glob ulin mass ratioOrdered By: Namrata Braden on 11-05-2024 Albumin/Globulin [Mass ratio] 1.9 {ratio} 0.9-2.4 [facility] Serum or plasma alkaline elvia sphatase measurementOrdered By: Namrata Braden on 11-05-2024 ALP [Catalytic activity/Vol] 83 U/L 35-104 [facility] Serum or plasma calcium paty urement (mass/volume)Ordered By: Namrata Braden on 11-05-2024 Calcium [Mass/Vol] 9.3 mg/dL 7.6-11.0 [facility] Serum or plasma urea nitroge n measurement (mass/volume)Ordered By: Namrata rBaden on 11-05-2024 Urea nitrogen [Mass/Vol] 16 mg/dL 4-19 [facility] Sodium levelOrdered By: Jose Braden on 11-05-2024 Sodium [Moles/Vol] 144 mmol/L 133-145 [facility] Total proteinOrdered By: Tom Braden on 11-05-2024 Protein [Mass/Vol] 6.6 g/dL 5.9-8.4 [facility] White blood cell (WBC) count Ordered By: Namrata Braden on 11-05-2024 WBC (Bld) [#/Vol] 9.4 10*3/uL 4.4-11.0 [facility] Bilirubin directOrdered By: Aaron Matthews on 10-15-2024 Bilirubin.direct [Mass/Vol] 0.17 mg/dL 0.00-0.30 [facility] Bilirubin, totalOrdered By: Aaron Matthews on 10-15-2024 Bilirubin [Mass/Vol] 0.38 mg/dL 0.00-1.30 [facility] Laboratory - Chemistry and C hemistry - challengeOrdered By: Aaron Matthews on 10-15-2024 AST [Catalytic activity/Vol] 23 U/L <32 [facility] Liver Profileon 10-15-2024 Albumin [Mass/Vol] 4.1 g/dL Normal 3.5-5.0 [facility] Comment on above: Performed By: #### L 073.6103 #### [facility] Laboratory [facility] [place], [address] ALK PHOS 85 U/L Normal 35-104 [facility] Comment on above: Performed By: #### L 500.3400 #### [facility] [address] [place], [address] ALT [Catalytic activity/Vol] 33 U/L Normal <=34 [facility] Comment on above: Performed By: #### L 500.3400 #### [facility] [address] [place], [address] AST [Catalytic activity/Vol] 23 U/L Normal <=31 [facility] Comment on above: Performed By: #### L 500.3400 #### [facility] [address] [place], [address] Bilirubin [Mass/Vol] 0.38 mg/dL Normal 0.00-1.30 [facility] Comment on above: Performed By: #### L 500.3400 #### [facility] [address] [place], [address] Bilirubin.direct [Mass/Vol] 0.17 mg/dL Normal 0.00-0.30 [facility] Comment on above: Performed By: #### L 500.3400 #### [facility] [address] [place], [address] Globulin (S) [Mass/Vol] 2.2 g/dL Normal 2.2-4.2 [facility] Comment on above: Performed By: #### L 500.3400 #### [facility] [address] [place], [address] T PROT 6.3 g/dL Normal 5.9-8.4 [facility] Comment on above: Performed By: #### L 500.3400 #### [facility] [address] [place], [address] Serum globulin measurementOr dered By: Aaron Matthews on 10-15-2024 Globulin (S) [Mass/Vol] 2.2 g/dL 2.2-4.2 [facility] Serum or plasma alanine peralta otransferase (ALT) [facility]Ordered By: [facility] 10-15-[facility]24 ALT [Catalytic activity/Vol] 33 U/L <35 [facility] Serum or plasma albumin paty urement (mass/volume)Ordered By: [facility] on 10-15-2024 Albumin [Mass/Vol] 4.1 g/dL 3.5-5.0 [facility] Serum or plasma alkaline elvia sphatase measurementOrdered By: [facility] on 10-15-2024 ALP [Catalytic activity/Vol] 85 U/L 35-104 [facility] Total proteinOrdered By: [facility] on 10-15-2024 Protein [Mass/Vol] 6.3 g/dL 5.9-8.4 [facility] Knee 4 or More Viewson 10-08 Knee 4 or More Views [facility] Imaging Services [address] [place] [address] Knee 4 or More Views MR#: [id number] Acct: [id number] Name: ISI GENAO Rep #: [id number] : 1965 F 59 From: Andrew Shea DO PCP: Dr. Nadine Salamanca MD Status: REG CLI Study: Knee 4 or More Views Date of Exam: 10/08/24 Exam# [id number] Ordering Dr: Ludivina Yang PROCEDURE: KNEE 4 OR MORE VIEWS 10/08/2024 REASON FOR EXAM: LEFT KNEE PAIN TECHNIQUE: KNEE 4 OR MORE VIEWS COMPARISON: None. FINDINGS: Bones: Normal mineralization. No fracture Joints: Joint cartilage intact. No significant periarticular Effusion: Small Soft tissues: Possible prepatellar soft tissue thickening Other: RAD/Knee 4 or More Views IMPRESSION: No acute osseous process. As above Reading Location: [facility] CC: Dr. Nadine Salamanca MD; BETH Astorga Fuel Pilot Engineer: Signed Normal [facility] Office Visit Reporton 2024 Office Visit Report [facility] [address] [place] [address] OFFICE VISIT Date of Service: 10/08/24 MR#: [id number] Acct: [id number] Patient: ISI GENAO Rep #: [id number] : 1965 Provider: BETH Whalen Age/Sex: 59/F Location[facility] Status: Signed Intake Vital Signs 06/11/24 08:32 [...] she can't put weight on her knee. [facility] Medical History Obstructive sleep apnea Elevated antinuclear [...] she walks. She has not used any nzyj-nqf-vqhzqbg medication for this. ROS Const Constitutional: Positive for other (ROS negative x 6 except what is described above) Exam Con (more content not included)... Normal [facility] Liver Profileon 09-18-2024 Albumin [Mass/Vol] 4.2 g/dL Normal 3.5-5.0 [facility] Comment on above: Performed By: #### L 500.3400 #### [facility] Laboratory [address] [place], [address] ALK PHOS 91 U/L Normal 35-104 [facility] Comment on above: Performed By: #### L 500.3400 #### [facility] Laboratory [address] [place], [address] ALT [Catalytic activity/Vol] 31 U/L Normal <=34 [facility] Comment on above: Performed By: #### L 500.3400 #### [facility] Laboratory [address] [place], [address] AST [Catalytic activity/Vol] 24 U/L Normal <=31 [facility] Comment on above: Performed By: #### L 500.3400 #### [facility] Laboratory [address] [place], [address] Bilirubin [Mass/Vol] 0.43 mg/dL Normal 0.00-1.30 [facility] Comment on above: Performed By: #### L 500.3400 #### [facility] Laboratory [address] [place], [address] Bilirubin.direct [Mass/Vol] 0.18 mg/dL Normal 0.00-0.30 [facility] Comment on above: Performed By: #### L 500.3400 #### [facility] Laboratory [address] [place], [address] Globulin (S) [Mass/Vol] 2.4 g/dL Normal 2.2-4.2 [facility] Comment on above: Performed By: #### L 500.3400 #### [facility] [address] [place], [address] T PROT 6.6 g/dL Normal 5.9-8.4 [facility] Comment on above: Performed By: #### L 500.3400 #### [facility] [address] [place], [address] Bilirubin directOrdered By: Aaron Matthesw on 09-17-2024 Bilirubin.direct [Mass/Vol] 0.18 mg/dL 0.00-0.30 [facility] Bilirubin, totalOrdered By: Aaron Matthews on 09-17-2024 Bilirubin [Mass/Vol] 0.43 mg/dL 0.00-1.30 [facility] - Chemistry and C hemistry - challengeOrdered By: Aaron Matthews on 09-17-2024 AST [Catalytic activity/Vol] 24 U/L <32 [facility] Serum globulin measurementOr dered By: Aaron Matthews on 09-17-2024 Globulin (S) [Mass/Vol] 2.4 g/dL 2.2-4.2 [facility] Serum or plasma alanine peralta otransferase (ALT) measurementOrdered By: Aaron Matthews on 09-17-2024 ALT [Catalytic activity/Vol] 31 U/L <35 [facility] Serum or plasma albumin paty urement (mass/volume)Ordered By: Aaron Matthews on 09-17-2024 Albumin [Mass/Vol] 4.2 g/dL 3.5-5.0 [facility] Serum or plasma alkaline elvia sphatase measurementOrdered By: Aaron Cassie on 09-17-2024 ALP [Catalytic activity/Vol] 91 U/L 35-104 [facility] Total proteinOrdered By: [facility] on 09-17-2024 Protein [Mass/Vol] 6.6 g/dL 5.9-8.4 [facility] Bilirubin directOrdered By: Aaron Matthews on 08-17-2024 Bilirubin.direct [Mass/Vol] 0.18 mg/dL 0.00-0.30 [facility] Bilirubin, totalOrdered By: Aaron Matthews on 08-17-2024 Bilirubin [Mass/Vol] 0.39 mg/dL 0.00-1.30 [facility] - Chemistry and C hemistry - challengeOrdered By: Aaronriddhi Matthews on 08-17-2024 AST [Catalytic activity/Vol] 23 U/L <32 [facility] Liver Profileon 08-17-2024 Albumin [Mass/Vol] 4.4 g/dL Normal 3.5-5.0 [facility] Comment on above: Performed By: #### L 500.3400 #### [facility] Laboratory [address] [place], [place], [id number] ALK PHOS 97 U/L Normal 35-104 [facility] Comment on above: Performed By: #### L 500.3400 #### [facility] Laboratory [address] [place], [place], [id number] ALT [Catalytic activity/Vol] 29 U/L Normal <=34 [facility] Comment on above: Performed By: #### L 500.3400 #### [facility] Laboratory [address] [place], [place], [id number] ([phone] AST [Catalytic activity/Vol] 23 U/L Normal <=31 [facility] Comment on above: Performed By: #### L 500.3400 #### [facility] Laboratory [address] [place], [address] Bilirubin [Mass/Vol] 0.39 mg/dL Normal 0.00-1.30 [facility] Comment on above: Performed By: #### L 500.3400 #### [facility] Laboratory [address] [place], [address] Bilirubin.direct [Mass/Vol] 0.18 mg/dL Normal 0.00-0.30 [facility] Comment on above: Performed By: #### L 500.3400 #### [facility] Laboratory [address] [place], [address] Globulin (S) [Mass/Vol] 2.5 g/dL Normal 2.2-4.2 [facility] Comment on above: Performed By: #### L 500.3400 #### [facility] Laboratory [address] [place], [address] T PROT 6.9 g/dL Normal 5.9-8.4 [facility] Comment on above: Performed By: #### L 500.3400 #### [facility] Laboratory [address] [place], [address] Serum globulin measurementOr dered By: Aaron Matthews on 08-17-2024 Globulin (S) [Mass/Vol] 2.5 g/dL 2.2-4.2 [facility] Serum or plasma alanine peralta otransferase (ALT) measurementOrdered By: Aaron Matthews on 08-17-2024 ALT [Catalytic activity/Vol] 29 U/L <35 [facility] Serum or plasma albumin paty urement (mass/volume)Ordered By: Aaron Matthews on 08-17-2024 Albumin [Mass/Vol] 4.4 g/dL 3.5-5.0 [facility] Serum or plasma alkaline elvia sphatase measurementOrdered By: Aaron Matthews on 08-17-2024 ALP [Catalytic activity/Vol] 97 U/L 35-104 [facility] Total proteinOrdered By: Bridget Mattehws on 08-17-2024 Protein [Mass/Vol] 6.9 g/dL 5.9-8.4 [facility] Quantiferon TB-Gold+on 08-04 QFT MITOGEN JUANITA > 10.00 Normal . [facility] Comment on above: Performed By: #### L 3400.8000 #### [facility] Laboratory [address] [place], [place], [id number] (410) QFT NIL VALUE 0.02 IU/mL Normal . [facility] Comment on above: Performed By: #### L 3400.8000 #### [facility] Laboratory [address] [place], [address] QFT TB GOLD+ Comment Normal . [facility] Comment on above: Result Comment: [...] test. Performed By: #### L 3400.8000 #### [facility] Laboratory [address] [place], [place], [phone] (095) QFT TB POS CRIT Negative Normal Negative [facility] Comment on above: Result Comment: [...] interferon gamma. Chemiluminescence immunoassay methodology Performed at: [facility] [address] [id number] Dress Cap Maker: Ismael Keith PhD, Phone: [phone] Performed By: #### L 3400.8000 #### [facility] Laboratory [address] [place], [place], [address] QFT TB1+ AG JUANITA 0.03 IU/mL Normal . [facility] Comment on above: Performed By: #### L 3400.8000 #### [facility] Laboratory [address] [place], [address] QFT TB2+ AG JUANITA 0.04 IU/mL Normal . [facility] Comment on above: Performed By: #### L 3400.8000 #### [facility] Laboratory [address] [place], [place], [address] Chest PA and Lateralon 08-03 Chest PA and Lateral [facility] Imaging Services [address] [place], [place] [address] Chest PA and Lateral MR#: [id number] Acct: [id number] Name: ISI GENAO Rep #: [id number] : 1965 F 59 From: Vernon Flood MD PCP: Dr. Nadine Salamanca MD Status: REG CLI Study: Chest PA and Lateral Date of Exam: 08/03/24 Exam# [id number] Ordering Dr: Namrata Braden MD PROCEDURE: CHEST [...] No evidence of acute disease. Reading Location: [id number] CC: Dr. Nadine Salamanca MD; Dr. Namrata Braden MD Fuel Pilot Engineer: Signed Normal [facility] Anion gap in Serum or Plasma Ordered By: Aaron Matthews on 08-02-2024 Anion gap [Moles/Vol] 13 mmol/L - [facility] BUN/creatinine ratioOrdered By: Aaron Matthews on 08-02-2024 Urea nitrogen/Creatinine [Mass ratio] 14.0 mg/mg - [facility] CBC-Complete Blood Cnt No Di ffon 08-02-2024 Erythrocyte distribution width (RBC) [Ratio] 13.2 % Normal 11.6-14.6 [facility] Comment on above: Performed By: #### L 500.3600, L506.1001, L501.0900, L509.1000, L100.0500 #### [facility] Laboratory [address] [place], [address] Hematocrit (Bld) [Volume fraction] 44.4 % Normal 37-47 [facility] Comment on above: Performed By: #### L 500.3600, L506.1001, L501.0900, L509.1000, L100.0500 #### [facility] Laboratory [address] [place], [address] Hemoglobin (Bld) [Mass/Vol] 14.5 g/dL Normal 12.0-15.0 [facility] Comment on above: Performed By: #### L 500.3600, L506.1001, L501.0900, L509.1000, L100.0500 #### [facility] Laboratory [address] [place], [address] MCH (RBC) [Entitic mass] 28.9 pg Normal 27.0-32.0 [facility] Comment on above: Performed By: #### L 500.3600, L506.1001, L501.0900, L509.1000, L100.0500 #### [facility] Laboratory [address] [place], [address] MCHC (RBC) [Mass/Vol] 32.7 g/dL Normal 32-36 [facility] Comment on above: Performed By: #### L 500.3600, L506.1001, L501.0900, L509.1000, L100.0500 #### [facility] Laboratory [address] [place], [address] MCV (RBC) [Entitic vol] 88.6 fL Normal 81-99 [facility] Comment on above: Performed By: #### L 500.3600, L506.1001, L501.0900, L509.1000, L100.0500 #### [facility] Laboratory [address] [place], [address] Platelet mean volume (Bld) [Entitic vol] 9.7 fL Normal 6.2-12.0 [facility] Comment on above: Performed By: #### L 500.3600, L506.1001, L501.0900, L509.1000, L100.0500 #### [facility] Laboratory [address] [place], [address] Platelets (Bld) [#/Vol] 279 10*3/uL Normal 150-450 [facility] Comment on above: Performed By: #### L 500.3600, L506.1001, L501.0900, L509.1000, L100.0500 #### [facility] Laboratory [address] [place], [address] RBC (Bld) [#/Vol] 5.01 10*6/uL Normal 4.2-5.4 [facility] Comment on above: Performed By: #### L 500.3600, L506.1001, L501.0900, L509.1000, L100.0500 #### [facility] Laboratory [address] [place], [address] RDW SD 42.7 fl Normal 35.1-43.9 [facility] Comment on above: Performed By: #### L 500.3600, L506.1001, L501.0900, L509.1000, L100.0500 #### [facility] Laboratory [address] [place], [address] WBC (Bld) [#/Vol] 10.8 10*3/uL Normal 4.4-11.0 [facility] Comment on above: Performed By: #### L 500.3600, L506.1001, L501.0900, L509.1000, L100.0500 #### [facility] [address] [place], [address] Carbon dioxide, total [Moles /volume] in Central venous bloodOrdered By: Aaron Matthews on 08-02-2024 CO2 [Moles/Vol] 24.5 mmol/L 21.0-32.0 [facility] Chloride assayOrdered By: Talon [facility] Matthews on 08-02-2024 Chloride [Moles/Vol] 103 mmol/L 98-108 [facility] Erythrocyte distribution wid th ratioOrdered By: [facility] Cassie on 08-02-2024 Erythrocyte distribution width (RBC) [Ratio] 13.2 % 11.6-14.6 [facility] Erythrocyte distribution wid th standard deviationOrdered By: Aaron Cassie on 08-02-2024 Erythrocyte distribution width (RBC) [Ratio] 42.7 fl 35.1-43.9 [facility] Glomerular filtration rate ( GFR) estimation/1.73 sq m using serum, plasma, or whole bOrdered By: Aaron Matthews on 08-02-2024 GFR/1.73 sq M.predicted among non-blacks MDRD (S/P/Bld) [Vol rate/Area] 46 mL/min/{1.73_m2} Low >60 [facility] Comment on above: mL/min/1.73m2 CKD-EP I Creatinine Equation (2020) Hematocrit Auto (Bld) [Volum e fraction]Ordered By: Aaron Matthews on 08-02-2024 Hematocrit (Bld) [Volume fraction] 44.4 % 37-47 [facility] Hemoglobin measurementOrdere d By: Aaron Matthews on 08-02-2024 Hemoglobin (Bld) [Mass/Vol] 14.5 g/dL 12.0-15.0 [facility] MCV (mean corpuscular volume ) determinationOrdered By: Aaronriddhi Matthews on 08-02-2024 MCV (RBC) [Entitic vol] 88.6 fL 81-99 [facility] Mean corpuscular hemoglobin (MCH) determinationOrdered By: [facility] Cassie on 08-02-2024 MCH (RBC) [Entitic mass] 28.9 pg 27.0-32.0 [facility] Mean corpuscular hemoglobin concentration (MCHC) determinationOrdered By: [facility] Cassie on 08-02-2024 MCHC (RBC) [Mass/Vol] 32.7 g/dL 32-36 [facility] Mean platelet volume determi nationOrdered By: [facility] Cassie on 08-02-2024 Platelet mean volume (Bld) [Entitic vol] 9.7 fL 6.2-12.0 [facility] PTHINon 08-02-2024 PTH 47 pg/mL Normal 11-61 [facility] Comment on above: Performed By: #### L 500.3600, L506.1001, L501.0900, L509.1000, L100.0500 #### [facility] Laboratory [address] [place], [place], [address] Platelet countOrdered By: Talon [facility] Cassie on 08-02-2024 Platelets (Bld) [#/Vol] 279 10*3/uL 150-450 [facility] Potassium measurement (mass/ volume)Ordered By: [facility] Cassie on 08-02-2024 Potassium (Unsp spec) [Mass/Vol] 4.8 mmol/L 3.3-5.1 [facility] Protein+Creatinine Ratio,Uri neon 08-02-2024 PROT:CRE RATIO UNABLE TO CALCULATE Normal 0-200 [facility] Comment on above: Performed By: #### L 3400.8000 #### [facility] [address] [place], [address] PROTEIN,UR.RAN. < 6.0 Normal 0.0-12.0 [facility] Comment on above: Performed By: #### L 3400.8000 #### [facility] [address] [place], [address] UR CREAT 31.20 mg/dL Normal 28.00-217.0 0 [facility] Comment on above: Performed By: #### L 3400.8000 #### [facility] [address] [place], [address] Qualitative QuantiFERON-TB g old in tube testOrdered By: Namrata Braden on 08-02-2024 M. tuberculosis tuberculin stim IFN-g Ql (Bld) 0.03 IU/mL . [facility] RBC Auto (Bld) [#/Vol]Ordere d By: Aaron Matthews on 08-02-2024 RBC (Bld) [#/Vol] 5.01 10*6/uL 4.2-5.4 [facility] Random urine creatinine paty urement (mass/volume)Ordered By: Aaron Matthews on 08-02-2024 Creatinine Unsp time (U) [Mass/Vol] 31.20 mg/dL 28.00-217.0 0 [facility] Renal Profileon 08-02-2024 Albumin [Mass/Vol] 4.5 g/dL Normal 3.5-5.0 [facility] Comment on above: Performed By: #### L 3400.8000 #### [facility] [address] [place], [address] BUN/CRE 14.0 RATIO Normal 10-20 [facility] Comment on above: Performed By: #### L 3400.8000 #### [facility] Laboratory [address] [place], [address] Calcium [Mass/Vol] 9.7 mg/dL Normal 7.6-11.0 [facility] Comment on above: Performed By: #### L 3400.8000 #### [facility] [address] [place], [address] Chloride [Moles/Vol] 103 mmol/L Normal 98-108 [facility] Comment on above: Performed By: #### L 3400.8000 #### [facility] [facility] [address] [place], [address] CO2 [Moles/Vol] 24.5 mmol/L Normal 21.0-32.0 [facility] Comment on above: Performed By: #### L 3400.8000 #### [facility] [address] [place], [address] Creatinine [Mass/Vol] 1.34 mg/dL High 0.70-1.20 [facility] Comment on above: Performed By: #### L 3400.8000 #### [facility] [address] [place], [address] GAP 13 Normal 5-15 [facility] Comment on above: Performed By: #### L 3400.8000 #### [facility] [address] [place], [address] GFR/1.73 sq M.predicted among non-blacks MDRD (S/P/Bld) [Vol rate/Area] 46 mL/min/{1.73_m2} Low >60 [facility] Comment on above: Result Comment: mL/m in/1.73m2 CKD-EPI Creatinine Equation (2020) Performed By: #### L 3400.8000 #### [facility] [address] [place], [address] Glucose [Mass/Vol] 80 mg/dL Normal 70-99 [facility] Comment on above: Performed By: #### L 3400.8000 #### [facility] [address] [place], [address] Phosphate [Mass/Vol] 5.0 mg/dL High 2.7-4.5 [facility] Comment on above: Performed By: #### L 3400.8000 #### [facility] [address] [place], [address] Potassium [Moles/Vol] 4.8 mmol/L Normal 3.3-5.1 [facility] Comment on above: Performed By: #### L 3400.8000 #### [facility] [address] [place], [address] Sodium [Moles/Vol] 140 mmol/L Normal 133-145 [facility] Comment on above: Performed By: #### L 3400.8000 #### [facility] [address] [place], [address] Urea nitrogen [Mass/Vol] 19 mg/dL Normal 4-19 [facility] Comment on above: Performed By: #### L 3400.8000 #### [facility] [address] [place], [address] Serum creatinine measurement (mass/volume)Ordered By: Aaron Matthews on 08-02-2024 Creatinine [Mass/Vol] 1.34 mg/dL High 0.70-1.20 [facility] Serum glucose measurement (m ass/volume)Ordered By: Aaron Matthews on 08-02-2024 Glucose [Mass/Vol] 80 mg/dL 70-99 [facility] Serum or plasma albumin paty urement (mass/volume)Ordered By: Aaron Matthews on 08-02-2024 Albumin [Mass/Vol] 4.5 g/dL 3.5-5.0 [facility] Serum or plasma calcium paty urement (mass/volume)Ordered By: Aaron Matthews on 08-02-2024 Calcium [Mass/Vol] 9.7 mg/dL 7.6-11.0 [facility] Serum or plasma urea nitroge n measurement (mass/volume)Ordered By: Aaron Matthews on 08-02-2024 Urea nitrogen [Mass/Vol] 19 mg/dL 4-19 [facility] Sodium levelOrdered By: Leighton Matthews on 08-02-2024 Sodium [Moles/Vol] 140 mmol/L 133-145 [facility] Urine protein measurement (m ass/volume)Ordered By: Aaron Matthews on 08-02-2024 Protein (U) [Mass/Vol] mg/dL 0.0-12.0 [facility] Urine protein/creatinine mas s ratioOrdered By: Aaron Matthews on 08-02-2024 Protein/Creatinine (U) [Mass ratio] UNABLE TO CALCULATE mg/g CRE 0-200 [facility] Vitamin D,25 Hydroxyon 08-02 Vitamin D 25-OH 43.2 ng/mL Normal 30-100 [facility] Comment on above: Result Comment: Monika min D Status Deficiency: <20 ng/mL (50nmol/L) Insufficiency: 20-30 ng/mL (50-75 nmol/L) Sufficiency: 30-100 ng/mL (75-250 nmol/L) Toxicity: >100 ng/mL (>250 nmol/L) Performed By: #### L 3400.8000 #### [facility] [place], [address] White blood cell (WBC) count Ordered By: Aaron Matthews on 08-02-2024 WBC (Bld) [#/Vol] 10.8 10*3/uL 4.4-11.0 [facility] CNOVon 07-31-2024 CNOV Office Visit (OBGYWM) ISI GENAO ([id number]) 1965 F Date Time Provider Department 07/31/24 1:30 PM MOHINI SANCHEZ OBELMIRA During your visit today, we recorded the following information about you: Blood pressure Weight Height 132/84 110.7 kg 1.656 m Mohini Sanchez APRN.MENTAL HEALTH CLINICIAN 07/31/2024 1:57 PM Signed Patient declined gag writer. Isi is a 59 year old who [...] Hypertension Father Coronary Artery Disease Father first AL/angioplasty age 40's -- MULTPLE interventions other (aortic [...] discussed with the Patient or Patient's Authorized Director Radiation Oncology. As applicable, any other physician, advance practice provider, medical student, or other health professional student that will be observing or involved in the sensitive examination for educational or training purposes was discussed with the Patient or Authorized Director Radiation Oncology. The Patient or Authorized Director Radiation Oncology has agreed to proceed with the sensitive [...] genitalia normal, normal Bartholin's glands, urethra, Dos Palos's glands, no vulvar lesions, no cervical lesions, [...] ordered for pain with intercourse Mohini Sanchez APRN.MENTAL HEALTH CLINICIAN Referring Provider: MOHINI SANCHEZ [[id number]] Allergies As of Date: 07/31/2024 Noted Allergy Reaction GRASS POLLEN 05/24/2023 14 - Other: See Comments HAY FEVER (SEASONAL ALLERGIES) 01/08/2019 14 - Other: See Comments TREES 05/24/2023 14 - Other: See Comments Date Reviewed: 07/31/2024 Reviewed by: Neida Mosre LPN - Fully Assessed Reason for Visit: Well Woman [1463] Primary Visit Diagnosis:Encounter for gynecological examination (general) (routine) without abnormal findings [Z01.419] Other Visit Diagnoses:Encounter for screening for human papillomavirus (HPV) [Z11.51] Pap smear for cervical cancer screening [Z12.4] Encounter for screening mammogram for breast cancer [Z12.31] Vaginal atrophy [N95.2] Order(s):ARMANDO SCREENING W MOMO [[id number]] Order #: [id number] FUTURE PAP TEST [[id number]] Order #: [id number]. #:[id number] (ESTRACE) 0.01 % (0.1 mg/gram) vaginal creamUse 0.5g vaginally at bedtime for 2 weeks then 1-3 time/weeks for maintenance.Disp: 42.5 gRfl: 2 Prescriptions as of 07/31/2024 - hydrOXYzine (more content not included)... Normal [facility] HIGH RISK HUMAN PAPILLOMA EMA (HPV), PCR FOR DETECTION AND GENOTYPINGon 07-31-2024 HPV 16 Ag Ql (Unsp spec) Not detected Normal Not detected [facility] Comment on above: Order Comment: Speci men Type: FLUID SPECIMEN Ordering Facility: [facility] Address: [address] [place] [address] Performed By: #### H PVHRT #### [facility] CLIA [id number] [address] [place] [address] [place] HPV 18 Ag Ql (Unsp spec) Not detected Normal Not detected [facility] Comment on above: Order Comment: Speci men Type: FLUID SPECIMEN Ordering Facility: [facility] Address: [address] [place] [address] Performed By: #### H PVHRT #### [facility] CLIA [id number] [address] [place] [address] [place] HPV 31+33+35+39+45+51+52+56 +58+59+66+68 DNA SIMONA+probe Ql (Cvx) Not detected Normal Not detected [facility] Comment on above: Order Comment: Speci men Type: FLUID SPECIMEN Ordering Facility: [facility] Address: [address] [place] [address] Result Comment: High Risk HPV Other Type includes HPV types 31, 33, 35, 39, 45, 51, 52, 56, 58, 59, 66 and 68. Performed By: #### H PVHRT #### [facility] CLIA [id number] [address] [place] [address] [place] ARMANDO SCREENING W TOMOon 07-31 ARMANDO SCREENING W MOMO * * *Final Report* * * DATE OF EXAM: Jul 31 2024 1:06PM WRW 0582 - ARMANDO SCREENING W MOMO / PROCEDURE REASON: Breast cancer screening by mammogram * * * * Physician Interpretation * * * * RESULT: [facility] [address] [id number] #[id number] - ARMANDO SCREENING W MOMO HISTORY: 59 [...] Carmen Hines M.D. Electronically signed on: 08/01/2024 Fuel Pilot Engineer: YENNIFER Transcribe Date/Time: Jul 31 2024 12:50P Dictated by: CARMEN HINES MD This examination was interpreted and the report reviewed and electronically signed by: CARMEN HINES MD on Aug 01 2024 10:32AM EST [id number] Normal [facility] PAP TESTon 07-31-2024 ADEQUACY Satisfactory for interpretation. Normal [facility] Comment on above: Order Comment: Speci men Type: FLUID SPECIMEN Ordering Facility: [facility] Address: [address] [place] [address] Performed By: #### L [id number] #### [facility] CLIA [id number] [address] [place] [address] [place] CASE REPORT Normal [facility] Comment on above: Order Comment: Speci men Type: FLUID SPECIMEN Ordering Facility: [facility] Address: [address] [place] [address] Result Comment: Gyne cologic Cytology Report Case: [id number] Authorizing Provider: Mohini Sanchez APRN.MENTAL HEALTH CLINICIAN Collected: 07/31/2024 01:59 PM Ordering Location: OB/Gynecology Received: 07/31/2024 04:04 PM First Screen: Dephyllis, [place], [place], ASCP Rescreen: Mendy [place], [place], ASCP Specimen: Pap Test, ThinPrep, Cervix Performed By: #### L [id number] #### [facility] CLIA [id number] [address] [place] [address] [place] CLINICAL HISTORY, CYTOLOGY, SOLAR TECH Routine Exam Normal [facility] Comment on above: Order Comment: Speci men Type: FLUID SPECIMEN Ordering Facility: [facility] Address: [address] [place] [address] Result Comment: Post Menopausal Performed By: #### L [id number] #### [facility] CLIA [id number] [address] [place] [address] [place] CYTOLOGY PAP OTHER INTERPRETATION Atrophic specimen. Normal [facility] Comment on above: Order Comment: Speci men Type: FLUID SPECIMEN Ordering Facility: [facility] Address: [address] [place] [address] Performed By: #### L [id number] #### [facility] CLIA [id number] [address] [place] [address] [place] FINAL PERFORMING LAB Normal [facility] Comment on above: Order Comment: Speci men Type: FLUID SPECIMEN Ordering Facility: [facility] Address: [address] [place] [address] Result Comment: Tech nical component, varnishing machine operator screening performed at: [facility], [address] [place] [address] CLIA: [id number] Diagnostic interpretation performed at: [facility], [address] [place] [address] CLIA# [id number] Agent Spa Desk: Juan F Pollack MD Performed By: #### L [id number] #### [facility] CLIA [id number] [address] [place] [address] [place] INTERPRETATION, CYTOLOGY, SOLAR TECH Normal [facility] Comment on above: Order Comment: Speci men Type: FLUID SPECIMEN Ordering Facility: [facility] Address: [address] [place] [address] Result Comment: Nega tive for intraepithelial lesion or malignancy. at 0922 EDT Performed By: #### L [id number] #### [facility] CLIA [id number] [address] [place] [address] [place] PAP DISCLAIMER COMMENT The Pap Smear is a screening test for cervical cancer. False negative results occur with all screening tests, emphasizing the need for rescreening at recommended intervals, and clinical correlation. Normal [facility] Comment on above: Order Comment: Speci men Type: FLUID SPECIMEN Ordering Facility: [facility] Address: [address] [place] [address] Performed By: #### L [id number] #### [facility] CLIA [id number] [address] [place] [address] [place] PAP INTERACTIVE PROJECT MANAGER COMMENT This specimen has been analyzed by the ThinPrep Imaging System, an automated imaging and review system, which assists the laboratory in evaluating cells on ThinPrep Pap tests. Following automated imaging, selected vivas from every slide are reviewed by a varnishing machine operator. Normal [facility] Comment on above: Order Comment: Speci men Type: FLUID SPECIMEN Ordering Facility: [facility] Address: [address] [place] [address] Performed By: #### L [id number] #### [facility] CLIA [id number] [address] [place] [address] [place] Absolute lymphocyte countOrd ered By: Namrata Braden on 07-23-2024 Lymphocytes Auto (Unsp spec) [#/Vol] 2.17 10*3/uL 0.83-4.51 [facility] Absolute neutrophil countOrd ered By: Namrata Braden on 07-23-2024 Neutrophils (Bld) [#/Vol] 7.4 10*3/uL 2.0-7.7 [facility] Anion gap in Serum or Plasma Ordered By: Namrata Braden on 07-23-2024 Anion gap [Moles/Vol] 12 mmol/L 5- [facility] Automated lymphocyte count a s percentage of total leukocytesOrdered By: Namrata Braden on 07-23-2024 Lymphocytes/100 WBC Auto (Unsp spec) 19.5 % - [facility] BUN/creatinine ratioOrdered By: Namrata Braden on 07-23-2024 Urea nitrogen/Creatinine [Mass ratio] 15.4 mg/mg - [facility] Basophil percentageOrdered B y: Namrata Braden on 07-23-2024 Basophils/100 WBC (Bld) 0.7 % 0-1 [facility] Bilirubin directOrdered By: Namraat Braden on 07-23-2024 Bilirubin.direct [Mass/Vol] 0.11 mg/dL 0.00-0.30 [facility] Bilirubin, Directon 07-24-19 25 Bilirubin.direct [Mass/Vol] 0.11 mg/dL Normal 0.00-0.30 [facility] Comment on above: Order Comment: DR. Elyse BARRAZA ORDERED CBCD AND CMPDRJose Eduardo MATTHEWS ORDERED LIVER Performed By: #### L 500.3409 #### [facility] [address] [place], [address] Bilirubin, totalOrdered By: Namrata Braden on 07-23-2024 Bilirubin [Mass/Vol] 0.21 mg/dL 0.00-1.30 [facility] CBC W/Diff, Automatedon 07-04 Absolute Lymph 2.17 X10 3/uL Normal 0.83-4.51 [facility] Comment on above: Order Comment: DR. Elyse BARRAZA ORDERED CBCD AND CMPDR. CASSIE ORDERED LIVER Performed By: #### L 500.3400 #### [facility] [address] [place], [address] Absolute Neut 7.4 X10 3/uL Normal 2.0-7.7 [facility] Comment on above: Order Comment: DR. Elyse BARRAZA ORDERED CBCD AND CMPDR. CASSIE ORDERED LIVER Performed By: #### L 500.3400 #### [facility] [address] [place], [address] Basophils/100 WBC (Bld) 0.7 % Normal 0-1 [facility] Comment on above: Order Comment: DR. Elyse BARRAZA ORDERED CBCD AND CMPDR. CASSIE ORDERED LIVER Performed By: #### L 500.3400 #### [facility] [address] [place], [address] Eosinophils/100 WBC (Bld) 3.5 % Normal 0-5 [facility] Comment on above: Order Comment: DR. Elyse BARRAZA ORDERED CBCD AND CMPDR. CASSIE ORDERED LIVER Performed By: #### L 500.3400 #### [facility] [address] [place], [address] Erythrocyte distribution width (RBC) [Ratio] 13.3 % Normal 11.6-14.6 [facility] Comment on above: Order Comment: DR. Elyse BARRAZA ORDERED CBCD AND CMPDR. CASSIE ORDERED LIVER Performed By: #### L 500.3400 #### [facility] [address] [place], [address] Hematocrit (Bld) [Volume fraction] 40.1 % Normal 37-47 [facility] Comment on above: Order Comment: DR. Elyse BARRAZA ORDERED CBCD AND CMPDR. CASSIE ORDERED LIVER Performed By: #### L 500.3400 #### [facility] [address] [place], [address] Hemoglobin (Bld) [Mass/Vol] 13.3 g/dL Normal 12.0-15.0 [facility] Comment on above: Order Comment: DR. Elyse BARRAZA ORDERED CBCD AND CMPDR. CASSIE ORDERED LIVER Performed By: #### L 500.3400 #### [facility] [address] [place], [address] IG% 0.400 Normal 0.0-0.9 [facility] Comment on above: Order Comment: DR. Elyse BARRAZA ORDERED CBCD AND CMPDR. CASSIE ORDERED LIVER Result Comment: IG% - Immature Granulocytes (promyelocytes, myelocytes and metamyelocytes) > 1% indicates that a LEFT SHIFT is Present. Performed By: #### L 500.3400 #### [facility] [address] [place], [address] Lymphocytes/100 WBC (Bld) 19.5 % Normal 19-41 [facility] Comment on above: Order Comment: DR. Elyse BARRAZA ORDERED CBCD AND CMPDR. CASSIE ORDERED LIVER Performed By: #### L 500.3400 #### [facility] [address] [place], [address] MCH (RBC) [Entitic mass] 28.9 pg Normal 27.0-32.0 [facility] Comment on above: Order Comment: DR. Elyse BARRAZA ORDERED CBCD AND CMPDR. CASSIE ORDERED LIVER Performed By: #### L 500.3400 #### [facility] [address] [place], [address] MCHC (RBC) [Mass/Vol] 33.2 g/dL Normal 32-36 [facility] Comment on above: Order Comment: DR. Elyse BARRAZA ORDERED CBCD AND CMPDR. CASSIE ORDERED LIVER Performed By: #### L 500.3400 #### [facility] [address] [place], [address] MCV (RBC) [Entitic vol] 87.2 fL Normal 81-99 [facility] Comment on above: Order Comment: DR. Elyse BARRAZA ORDERED CBCD AND CMPDR. CASSIE ORDERED LIVER Performed By: #### L 500.3400 #### [facility] [address] [place], [address] Monocytes/100 WBC (Bld) 9.1 % Normal 0-10 [facility] Comment on above: Order Comment: DR. Elyse BARRAZA ORDERED CBCD AND CMPDR. CASSIE ORDERED LIVER Performed By: #### L 500.3400 #### [facility] [address] [place], [address] Neutrophils/100 WBC (Bld) 66.8 % Normal 47-70 [facility] Comment on above: Order Comment: DR. Elyse BARRAZA ORDERED CBCD AND CMPDR. CASSIE ORDERED LIVER Performed By: #### L 500.3400 #### [facility] [address] [place], [address] Nucleated RBC (Bld) [#/Vol] 0 10*3/uL Normal 0-5 [facility] Comment on above: Order Comment: DR. Elyse BARRAZA ORDERED CBCD AND CMPDR. CASSIE ORDERED LIVER Performed By: #### L 500.3400 #### [facility] [address] [place], [address] Platelet mean volume (Bld) [Entitic vol] 9.9 fL Normal 6.2-12.0 [facility] Comment on above: Order Comment: DR. Elyse BARRAZA ORDERED CBCD AND CMPDR. CASSIE ORDERED LIVER Performed By: #### L 500.3400 #### [facility] [address] [place], [address] Platelets (Bld) [#/Vol] 236 10*3/uL Normal 150-450 [facility] Comment on above: Order Comment: DR. Elyse BARRAZA ORDERED CBCD AND CMPDR. CASSIE ORDERED LIVER Performed By: #### L 500.3400 #### [facility] [address] [place], [address] RBC (Bld) [#/Vol] 4.60 10*6/uL Normal 4.2-5.4 [facility] Comment on above: Order Comment: DR. Elyse BARRAZA ORDERED CBCD AND CMPDR. CASSIE ORDERED LIVER Performed By: #### L 500.3400 #### [facility] [address] [place], [address] RDW SD 42.0 fl Normal 35.1-43.9 [facility] Comment on above: Order Comment: DR. Elyse BARRAZA ORDERED CBCD AND CMPDR. CASSIE ORDERED LIVER Performed By: #### L 500.3400 #### [facility] [address] [place], [address] WBC (Bld) [#/Vol] 11.1 10*3/uL High 4.4-11.0 [facility] Comment on above: Order Comment: DR. Elyse BARRAZA ORDERED CBCD AND CMPDR. CASSIE ORDERED LIVER Performed By: #### L 500.3400 #### [facility] [address] [place], [address] Carbon dioxide, total [Moles /volume] in Central venous bloodOrdered By: Namrata Braden on 07-23-2024 CO2 [Moles/Vol] 22.9 mmol/L 21.0-32.0 [facility] Chloride assayOrdered By: Beth Braden on 07-23-2024 Chloride [Moles/Vol] 107 mmol/L 98-108 [facility] Comprehensive Metabolic Prof ilon 07-23-2024 Albumin [Mass/Vol] 4.3 g/dL Normal 3.5-5.0 [facility] Comment on above: Order Comment: DR. Elyse BARRAZA ORDERED CBCD AND CMPDR. CASSIE ORDERED LIVER Performed By: #### L 500.3400 #### [facility] [address] [place], [address] Albumin/Globulin [Mass ratio] 1.7 {ratio} Normal 0.9-2.4 [facility] Comment on above: Order Comment: DR. Elyse BARRAZA ORDERED CBCD AND CMPDR. CASSIE ORDERED LIVER Performed By: #### L 500.3400 #### [facility] [address] [place], [address] ALK PHOS 97 U/L Normal 35-104 [facility] Comment on above: Order Comment: DR. Elyse BARRAZA ORDERED CBCD AND CMPDR. CASSIE ORDERED LIVER Performed By: #### L 500.3400 #### [facility] [address] [place], [address] ALT [Catalytic activity/Vol] 27 U/L Normal <=34 [facility] Comment on above: Order Comment: DR. Elyse BARRAZA ORDERED CBCD AND CMPDR. CASSIE ORDERED LIVER Performed By: #### L 500.3400 #### [facility] [address] [place], [address] AST [Catalytic activity/Vol] 21 U/L Normal <=31 [facility] Comment on above: Order Comment: DR. Elyse BARRAZA ORDERED CBCD AND CMPDR. CASSIE ORDERED LIVER Performed By: #### L 500.3400 #### [facility] [address] [place], [address] Bilirubin [Mass/Vol] 0.21 mg/dL Normal 0.00-1.30 [facility] Comment on above: Order Comment: DR. Elyse BARRAZA ORDERED CBCD AND CMPDR. CASSIE ORDERED LIVER Performed By: #### L 500.3400 #### [facility] [address] [place], [address] BUN/CRE 15.4 RATIO Normal 10-20 [facility] Comment on above: Order Comment: DR. Elyse BARRAZA ORDERED CBCD AND CMPDR. CASSIE ORDERED LIVER Performed By: #### L 500.3400 #### [facility] [address] [place], [address] Calcium [Mass/Vol] 9.6 mg/dL Normal 7.6-11.0 [facility] Comment on above: Order Comment: DR. Elyse BARRAZA ORDERED CBCD AND CMPDR. CASSIE ORDERED LIVER Performed By: #### L 500.3400 #### [facility] [address] [place], [address] Chloride [Moles/Vol] 107 mmol/L Normal 98-108 [facility] Comment on above: Order Comment: DR. Elyse BARRAZA ORDERED CBCD AND CMPDR. CASSIE ORDERED LIVER Performed By: #### L 500.3400 #### [facility] [address] [place], [address] CO2 [Moles/Vol] 22.9 mmol/L Normal 21.0-32.0 [facility] Comment on above: Order Comment: DR. Elyse BARRAZA ORDERED CBCD AND CMPDR. CASSIE ORDERED LIVER Performed By: #### L 500.3400 #### [facility] [address] [place], [address] Creatinine [Mass/Vol] 1.29 mg/dL High 0.70-1.20 [facility] Comment on above: Order Comment: DR. Elyse BARRAZA ORDERED CBCD AND CMPDR. CASSIE ORDERED LIVER Performed By: #### L 500.3400 #### [facility] [address] [place], [address] GAP 12 Normal 5-15 [facility] [facility] Comment on above: Order Comment: DR. Elyse BARRAZA ORDERED CBCD AND CMPDR. CASSIE ORDERED LIVER Performed By: #### L 500.3400 #### [facility] [address] [place], [address] GFR/1.73 sq M.predicted among non-blacks MDRD (S/P/Bld) [Vol rate/Area] 48 mL/min/{1.73_m2} Low >60 [facility] Comment on above: Order Comment: DR. Elyse BARRAZA ORDERED CBCD AND CMPDR. CASSIE ORDERED LIVER Result Comment: mL/m in/1.73m2 CKD-EPI Creatinine Equation (2020) Performed By: #### L 500.3400 #### [facility] [address] [place], [address] Globulin (S) [Mass/Vol] 2.5 g/dL Normal 2.2-4.2 [facility] Comment on above: Order Comment: DR. Elyse BARRAZA ORDERED CBCD AND CMPDR. CASSIE ORDERED LIVER Performed By: #### L 500.3400 #### [facility] [address] [place], [address] Glucose [Mass/Vol] 90 mg/dL Normal 70-99 [facility] Comment on above: Order Comment: DR. Elyse BARRAZA ORDERED CBCD AND CMPDR. CASSIE ORDERED LIVER Performed By: #### L 500.3400 #### [facility] [address] [place], [address] Potassium [Moles/Vol] 4.7 mmol/L Normal 3.3-5.1 [facility] Comment on above: Order Comment: DR. Elyse BARRAZA ORDERED CBCD AND CMPDR. CASSIE ORDERED LIVER Performed By: #### L 500.3400 #### [facility] [address] [place], [address] Sodium [Moles/Vol] 141 mmol/L Normal 133-145 [facility] Comment on above: Order Comment: DR. Elyse BARRAZA ORDERED CBCD AND CMPDR. CASSIE ORDERED LIVER Performed By: #### L 500.3400 #### [facility] [address] [place], [address] T PROT 6.9 g/dL Normal 5.9-8.4 [facility] Comment on above: Order Comment: DR. Elyse BARRAZA ORDERED CBCD AND CMPDR. CASSIE ORDERED LIVER Performed By: #### L 500.3400 #### [facility] [address] [place], [place], [address] Urea nitrogen [Mass/Vol] 20 mg/dL High 4-19 [facility] Comment on above: Order Comment: DR. Elyse BARRAZA ORDERED CBCD AND CMPDR. CASSIE ORDERED LIVER Performed By: #### L 500.3400 #### [facility] [address] [place], [address] Eosinophil percentageOrdered By: Namrata Braden on 07-23-2024 Eosinophils/100 WBC (Bld) 3.5 % 0-5 [facility] Erythrocyte distribution wid th ratioOrdered By: Namrata Braden on 07-23-2024 Erythrocyte distribution width (RBC) [Ratio] 13.3 % 11.6-14.6 [facility] Erythrocyte distribution wid th standard deviationOrdered By: Namrata Braden on 07-23-2024 Erythrocyte distribution width (RBC) [Ratio] 42.0 fl 35.1-43.9 [facility] Glomerular filtration rate ( GFR) estimation/1.73 sq m using serum, plasma, or whole bOrdered By: Namrata Braden on 07-23-2024 GFR/1.73 sq M.predicted among non-blacks MDRD (S/P/Bld) [Vol rate/Area] 48 mL/min/{1.73_m2} Low >60 [facility] Comment on above: mL/min/1.73m2 CKD-EP I Creatinine Equation (2020) Hematocrit Auto (Bld) [Volum e fraction]Ordered By: Namrata Braden on 07-23-2024 Hematocrit (Bld) [Volume fraction] 40.1 % 37-47 [facility] Hemoglobin measurementOrdere d By: Namrata Braden on 07-23-2024 Hemoglobin (Bld) [Mass/Vol] 13.3 g/dL 12.0-15.0 [facility] Immature granulocytes/100 WB C Auto (Bld)Ordered By: Namrata Braden on 04-21-2025 Immature granulocytes/100 WBC (Bld) 0.400 % 0.0-0.9 [facility] Comment on above: IG% - Immature Granu locytes (promyelocytes, myelocytes and metamyelocytes) > 1% indicates that a LEFT SHIFT is Present. Laboratory - Chemistry and C hemistry - challengeOrdered By: Namrata Braden on 07-23-2024 AST [Catalytic activity/Vol] 21 U/L <32 [facility] MCV (mean corpuscular volume ) determinationOrdered By: Namrata Braden on 07-23-2024 MCV (RBC) [Entitic vol] 87.2 fL 81-99 [facility] Mean corpuscular hemoglobin (MCH) determinationOrdered By: Namrata Braden on 07-23-2024 MCH (RBC) [Entitic mass] 28.9 pg 27.0-32.0 [facility] Mean corpuscular hemoglobin concentration (MCHC) determinationOrdered By: Namrata Braden on 07-23-2024 MCHC (RBC) [Mass/Vol] 33.2 g/dL 32-36 [facility] Mean platelet volume determi nationOrdered By: Namrata Braden on 07-23-2024 Platelet mean volume (Bld) [Entitic vol] 9.9 fL 6.2-12.0 [facility] Monocyte percentageOrdered B y: Namrata Braden on 07-23-2024 Monocytes/100 WBC (Bld) 9.1 % 0-10 [facility] Neutrophil percentageOrdered By: Namrata Braden on 07-23-2024 Neutrophils/100 WBC (Bld) 66.8 % 47-70 [facility] Nucleated red blood cell per centageOrdered By: Namrata Braden on 07-23-2024 Nucleated RBC/100 WBC (Bld) [Ratio] 0 % 0-5 [facility] Platelet countOrdered By: Beth Braden on 07-23-2024 Platelets (Bld) [#/Vol] 236 10*3/uL 150-450 [facility] Potassium measurement (mass/ volume)Ordered By: Namrata Braden on 07-23-2024 Potassium (Unsp spec) [Mass/Vol] 4.7 mmol/L 3.3-5.1 [facility] RBC Auto (Bld) [#/Vol]Ordere d By: Namrata Braden on 07-23-2024 RBC (Bld) [#/Vol] 4.60 10*6/uL 4.2-5.4 [facility] Serum creatinine measurement (mass/volume)Ordered By: Namrata Braden on 07-23-2024 Creatinine [Mass/Vol] 1.29 mg/dL High 0.70-1.20 [facility] Serum globulin measurementOr dered By: Namrata Braden on 07-23-2024 Globulin (S) [Mass/Vol] 2.5 g/dL 2.2-4.2 [facility] Serum glucose measurement (m ass/volume)Ordered By: Namrata Braden on 07-23-2024 Glucose [Mass/Vol] 90 mg/dL 70-99 [facility] Serum or plasma alanine peralta otransferase (ALT) measurementOrdered By: Namrata Braden on 07-23-2024 ALT [Catalytic activity/Vol] 27 U/L <35 [facility] Serum or plasma albumin paty urement (mass/volume)Ordered By: Namrata Braden on 07-23-2024 Albumin [Mass/Vol] 4.3 g/dL 3.5-5.0 [facility] Serum or plasma albumin/glob ulin mass ratioOrdered By: Namrata Braden on 07-23-2024 Albumin/Globulin [Mass ratio] 1.7 {ratio} 0.9-2.4 [facility] Serum or plasma alkaline elvia sphatase measurementOrdered By: Namrata Braden on 07-23-2024 ALP [Catalytic activity/Vol] 97 U/L 35-104 [facility] Serum or plasma calcium paty urement (mass/volume)Ordered By: Namrata Braden on 07-23-2024 Calcium [Mass/Vol] 9.6 mg/dL 7.6-11.0 [facility] Serum or plasma urea nitroge n measurement (mass/volume)Ordered By: Namrata Braden on 07-23-2024 Urea nitrogen [Mass/Vol] 20 mg/dL High 4-19 [facility] Sodium levelOrdered By: Jose Braden on 07-23-2024 Sodium [Moles/Vol] 141 mmol/L 133-145 [facility] Total proteinOrdered By: Tom Braden on 07-23-2024 Protein [Mass/Vol] 6.9 g/dL 5.9-8.4 [facility] White blood cell (WBC) count Ordered By: Namrata Braden on 07-23-2024 WBC (Bld) [#/Vol] 11.1 10*3/uL High 4.4-11.0 [facility] Hemoglobin A1con 06-26-2024 HbA1c (Bld) [Mass fraction] 5.6 % Low <=5.6 [facility] Comment on above: Performed By: #### L 500.3402 #### [facility] [place], [address] Absolute lymphocyte countOrd ered By: Namrata Braden on 06-25-2024 Lymphocytes Auto (Unsp spec) [#/Vol] 2.31 10*3/uL 0.83-4.51 [facility] Absolute neutrophil countOrd ered By: Namrata Braden on 06-25-2024 Neutrophils (Bld) [#/Vol] 4.9 10*3/uL 2.0-7.7 [facility] Anion gap in Serum or Plasma Ordered By: Namrata Braden on 06-25-2024 Anion gap [Moles/Vol] 12 mmol/L 5-15 [facility] Automated lymphocyte count a s percentage of total leukocytesOrdered By: Namrata Braden on 06-25-2024 Lymphocytes/100 WBC Auto (Unsp spec) 27.2 % 19-41 [facility] BUN/creatinine ratioOrdered By: Namrata Braden on 06-25-2024 Urea nitrogen/Creatinine [Mass ratio] 12.3 mg/mg 10-20 [facility] Basophil percentageOrdered B y: Namrata Braden on 06-25-2024 Basophils/100 WBC (Bld) 0.9 % 0-1 [facility] Bilirubin directOrdered By: Namrata Braden on 06-25-2024 Bilirubin.direct [Mass/Vol] 0.16 mg/dL 0.00-0.30 [facility] Bilirubin, Directon 06-26-19 Bilirubin.direct [Mass/Vol] 0.16 mg/dL Normal 0.00-0.30 [facility] Comment on above: Order Comment: DR. Elyse BARRAZA ORDERED CBCD AND CMP DR. MATTHEWS ORDERED LIVER Performed By: #### L 500.4050, L501.4700, L100.0100 #### [facility] [address] [place], [address] Bilirubin, totalOrdered By: Namrata Braden on 06-25-2024 Bilirubin [Mass/Vol] 0.35 mg/dL 0.00-1.30 [facility] CBC W/Diff, Automatedon 06-03 Absolute Lymph 2.31 X10 3/uL Normal 0.83-4.51 [facility] Comment on above: Order Comment: DR. Elyse BARRAZA ORDERED CBCD AND CMP DR. MATTHEWS ORDERED LIVER Performed By: #### L 500.4050, L501.4700, L100.0100 #### [facility] [address] [place], [address] Absolute Neut 4.9 X10 3/uL Normal 2.0-7.7 [facility] Comment on above: Order Comment: DR. Elyse BARRAZA ORDERED CBCD AND CMP DR. MATTHEWS ORDERED LIVER Performed By: #### L 500.4050, L501.4700, L100.0100 #### [facility] [address] [place], [address] Basophils/100 WBC (Bld) 0.9 % Normal 0-1 [facility] Comment on above: Order Comment: DR. Elyse BARRAZA ORDERED CBCD AND CMP DR. MATTHEWS ORDERED LIVER Performed By: #### L 500.4050, L501.4700, L100.0100 #### [facility] [address] [place], [address] Eosinophils/100 WBC (Bld) 5.6 % High 0-5 [facility] Comment on above: Order Comment: DR. Elyse BARRAZA ORDERED CBCD AND CMP DR. MATTHEWS ORDERED LIVER Performed By: #### L 500.4050, L501.4700, L100.0100 #### [facility] [address] [place], [address] Erythrocyte distribution width (RBC) [Ratio] 13.2 % Normal 11.6-14.6 [facility] Comment on above: Order Comment: DR. Elyse BARRAZA ORDERED CBCD AND CMP DR. MATTHEWS ORDERED LIVER Performed By: #### L 500.4050, L501.4700, L100.0100 #### [facility] [address] [place], [address] Hematocrit (Bld) [Volume fraction] 41.8 % Normal 37-47 [facility] Comment on above: Order Comment: DR. Elyse BARRAZA ORDERED CBCD AND CMP DR. MATTHEWS ORDERED LIVER Performed By: #### L 500.4050, L501.4700, L100.0100 #### [facility] [address] [place], [address] Hemoglobin (Bld) [Mass/Vol] 13.5 g/dL Normal 12.0-15.0 [facility] Comment on above: Order Comment: DR. Elyse BARRAZA ORDERED CBCD AND CMP DR. MATTHEWS ORDERED LIVER Performed By: #### L 500.4050, L501.4700, L100.0100 #### [facility] [address] [place], [address] IG% 0.500 Normal 0.0-0.9 [facility] Comment on above: Order Comment: DR. Elyse BARRAZA ORDERED CBCD AND CMP DR. MATTHEWS ORDERED LIVER Result Comment: IG% - Immature Granulocytes (promyelocytes, myelocytes and metamyelocytes) > 1% indicates that a LEFT SHIFT is Present. Performed By: #### L 500.4050, L501.4700, L100.0100 #### [facility] [address] [place], [address] Lymphocytes/100 WBC (Bld) 27.2 % Normal 19-41 [facility] Comment on above: Order Comment: DR. Elyse BARRAZA ORDERED CBCD AND CMP DR. MATTHEWS ORDERED LIVER Performed By: #### L 500.4050, L501.4700, L100.0100 #### [facility] [address] [place], [address] MCH (RBC) [Entitic mass] 28.8 pg Normal 27.0-32.0 [facility] Comment on above: Order Comment: DR. Elyse BARRAZA ORDERED CBCD AND CMP DR. MATTHEWS ORDERED LIVER Performed By: #### L 500.4050, L501.4700, L100.0100 #### [facility] [address] [place], [address] MCHC (RBC) [Mass/Vol] 32.3 g/dL Normal 32-36 [facility] Comment on above: Order Comment: DR. Elyse BARRAZA ORDERED CBCD AND CMP DR. MATTHEWS ORDERED LIVER Performed By: #### L 500.4050, L501.4700, L100.0100 #### [facility] [address] [place], [address] MCV (RBC) [Entitic vol] 89.3 fL Normal 81-99 [facility] Comment on above: Order Comment: DR. Elyse BARRAZA ORDERED CBCD AND CMP DR. MATTHEWS ORDERED LIVER Performed By: #### L 500.4050, L501.4700, L100.0100 #### [facility] [address] [place], [address] Monocytes/100 WBC (Bld) 8.7 % Normal 0-10 [facility] Comment on above: Order Comment: DR. Elyse BARRAZA ORDERED CBCD AND CMP DR. MATTHEWS ORDERED LIVER Performed By: #### L 500.4050, L501.4700, L100.0100 #### [facility] [address] [place], [address] Neutrophils/100 WBC (Bld) 57.1 % Normal 47-70 [facility] Comment on above: Order Comment: DR. Elyse BARRAZA ORDERED CBCD AND CMP DR. MATTHEWS ORDERED LIVER Performed By: #### L 500.4050, L501.4700, L100.0100 #### [facility] [address] [place], [address] Nucleated RBC (Bld) [#/Vol] 0 10*3/uL Normal 0-5 [facility] Comment on above: Order Comment: DR. Elyse BARRAZA ORDERED CBCD AND CMP DR. MATTHEWS ORDERED LIVER Performed By: #### L 500.4050, L501.4700, L100.0100 #### [facility] [address] [place], [address] Platelet mean volume (Bld) [Entitic vol] 10.1 fL Normal 6.2-12.0 [facility] Comment on above: Order Comment: DR. Elyse BARRAZA ORDERED CBCD AND CMP DR. MATTHEWS ORDERED LIVER Performed By: #### L 500.4050, L501.4700, L100.0100 #### [facility] [address] [place], [address] Platelets (Bld) [#/Vol] 234 10*3/uL Normal 150-450 [facility] Comment on above: Order Comment: DR. Elyse BARRAZA ORDERED CBCD AND CMP DR. MATTHEWS ORDERED LIVER Performed By: #### L 500.4050, L501.4700, L100.0100 #### [facility] [address] [place], [address] RBC (Bld) [#/Vol] 4.68 10*6/uL Normal 4.2-5.4 [facility] Comment on above: Order Comment: DR. Elyse BARRAZA ORDERED CBCD AND CMP DR. MATTHEWS ORDERED LIVER Performed By: #### L 500.4050, [id number], L100.0100 #### [facility] [address] [place], [address] RDW SD 42.6 fl Normal 35.1-43.9 [facility] Comment on above: Order Comment: DR. Elyse BARRAZA ORDERED CBCD AND CMP DR. MATTHEWS ORDERED LIVER Performed By: #### L 500.4050, L501.4700, L100.0100 #### [facility] [address] [place], [address] WBC (Bld) [#/Vol] 8.5 10*3/uL Normal 4.4-11.0 [facility] Comment on above: Order Comment: DR. Elyse BARRAZA ORDERED CBCD AND CMP DR. MATTHEWS ORDERED LIVER Performed By: #### L 500.4050, L501.4700, L100.0100 #### [facility] [address] [place], [address] Carbon dioxide, total [Moles /volume] in Central venous bloodOrdered By: Namrata Braden on 06-25-2024 CO2 [Moles/Vol] 23.8 mmol/L 21.0-32.0 [facility] Chloride assayOrdered By: Beth Braden on 06-25-2024 Chloride [Moles/Vol] 108 mmol/L 98-108 [facility] Comprehensive Metabolic Prof ilon 06-25-2024 Albumin [Mass/Vol] 4.2 g/dL Normal 3.5-5.0 [facility] Comment on above: Order Comment: DR. Elyse BARRAZA ORDERED CBCD AND CMP DR. MATTHEWS ORDERED LIVER Performed By: #### L 500.4050, L501.4700, L100.0100 #### [facility] [address] [place], [address] Albumin/Globulin [Mass ratio] 1.7 {ratio} Normal 0.9-2.4 [facility] Comment on above: Order Comment: DR. Elyse BARRAZA ORDERED CBCD AND CMP DR. MATTHEWS ORDERED LIVER Performed By: #### L 500.4050, L501.4700, L100.0100 #### [facility] [address] [place], [address] ALK PHOS 95 U/L Normal 35-104 [facility] Comment on above: Order Comment: DR. Elyse BARRAZA ORDERED CBCD AND CMP DR. MATTHEWS ORDERED LIVER Performed By: #### L 500.4050, L501.4700, L100.0100 #### [facility] [address] [place], [address] ALT [Catalytic activity/Vol] 23 U/L Normal <=34 [facility] Comment on above: Order Comment: DR. Elyse BARRAZA ORDERED CBCD AND CMP DR. MATTHEWS ORDERED LIVER Performed By: #### L 500.4050, [id number], L100.0100 #### [facility] [address] [place], [address] AST [Catalytic activity/Vol] 22 U/L Normal <=31 [facility] Comment on above: Order Comment: DR. Elyse BARRAZA ORDERED CBCD AND CMP DR. MATTHEWS ORDERED LIVER Performed By: #### L 500.4050, L501.4700, L100.0100 #### [facility] [address] [place], [address] Bilirubin [Mass/Vol] 0.35 mg/dL Normal 0.00-1.30 [facility] Comment on above: Order Comment: DR. Elyse BARRAZA ORDERED CBCD AND CMP DR. MATTHEWS ORDERED LIVER Performed By: #### L 500.4050, L501.4700, L100.0100 #### [facility] [address] [place], [address] BUN/CRE 12.3 RATIO Normal 10-20 [facility] Comment on above: Order Comment: DR. Elyse BARRAZA ORDERED CBCD AND CMP DR. MATTHEWS ORDERED LIVER Performed By: #### L 500.4050, L501.4700, L100.0100 #### [facility] [address] [place], [address] Calcium [Mass/Vol] 9.7 mg/dL Normal 7.6-11.0 [facility] Comment on above: Order Comment: DR. Elyse BARRAZA ORDERED CBCD AND CMP DR. MATTHEWS ORDERED LIVER Performed By: #### L 500.4050, L501.4700, L100.0100 #### [facility] [address] [place], [address] Chloride [Moles/Vol] 108 mmol/L Normal 98-108 [facility] Comment on above: Order Comment: DR. Elyse BARRAZA ORDERED CBCD AND CMP DR. MATTHEWS ORDERED LIVER Performed By: #### L 500.4050, L501.4700, L100.0100 #### [facility] [address] [place], [address] CO2 [Moles/Vol] 23.8 mmol/L Normal 21.0-32.0 [facility] Comment on above: Order Comment: DR. Elyse BARRAZA ORDERED CBCD AND CMP DR. MATTHEWS ORDERED LIVER Performed By: #### L 500.4050, L501.4700, L100.0100 #### [facility] [address] [place], [address] Creatinine [Mass/Vol] 1.27 mg/dL High 0.70-1.20 [facility] Comment on above: Order Comment: DR. Elyse BARRAZA ORDERED CBCD AND CMP DR. MATTHEWS ORDERED LIVER Performed By: #### L 500.4050, L501.4700, L100.0100 #### [facility] [address] [place], [address] GAP 12 Normal 5-15 [facility] Comment on above: Order Comment: DR. Elyse BARRAZA ORDERED CBCD AND CMP DR. MATTHEWS ORDERED LIVER Performed By: #### L 500.4050, L501.4700, L100.0100 #### [facility] [address] [place], [address] GFR/1.73 sq M.predicted among non-blacks MDRD (S/P/Bld) [Vol rate/Area] 49 mL/min/{1.73_m2} Low >60 [facility] Comment on above: Order Comment: DR. Elyse BARRAZA ORDERED CBCD AND CMP DR. MATTHEWS ORDERED LIVER Result Comment: mL/m in/1.73m2 CKD-EPI Creatinine Equation (2020) Performed By: #### L 500.4050, L501.4700, L100.0100 #### [facility] [address] [place], [address] Globulin (S) [Mass/Vol] 2.5 g/dL Normal 2.2-4.2 [facility] Comment on above: Order Comment: DR. Elyse BARRAZA ORDERED CBCD AND CMP DR. MATTHEWS ORDERED LIVER Performed By: #### L 500.4050, L501.4700, L100.0100 #### [facility] [address] [place], [address] Glucose [Mass/Vol] 91 mg/dL Normal 70-99 [facility] Comment on above: Order Comment: DR. Elyse BARRAZA ORDERED CBCD AND CMP DR. MATTHEWS ORDERED LIVER Performed By: #### L 500.4050, L501.4700, L100.0100 #### [facility] [address] [place], [address] Potassium [Moles/Vol] 4.6 mmol/L Normal 3.3-5.1 [facility] Comment on above: Order Comment: DR. Elyse BARRAZA ORDERED CBCD AND CMP DR. MATTHEWS ORDERED LIVER Performed By: #### L 500.4050, L501.4700, L100.0100 #### [facility] [address] [place], [address] Sodium [Moles/Vol] 143 mmol/L Normal 133-145 [facility] Comment on above: Order Comment: DR. Elyse BARRAZA ORDERED CBCD AND CMP DR. MATTHEWS ORDERED LIVER Performed By: #### L 500.4050, L501.4700, L100.0100 #### [facility] [address] [place], [address] T PROT 6.7 g/dL Normal 5.9-8.4 [facility] Comment on above: Order Comment: DR. Elyse BARRAZA ORDERED CBCD AND CMP DR. MATTHEWS ORDERED LIVER Performed By: #### L 500.4050, L501.4700, L100.0100 #### [facility] [address] [place], [address] Urea nitrogen [Mass/Vol] 16 mg/dL Normal 4-19 [facility] Comment on above: Order Comment: DR. Elyse BARRAZA ORDERED CBCD AND CMP DR. MATTHEWS ORDERED LIVER Performed By: #### L 500.4050, L501.4700, L100.0100 #### [facility] [address] [place], [address] Eosinophil percentageOrdered By: Namrata Braden on 06-25-2024 Eosinophils/100 WBC (Bld) 5.6 % High 0-5 [facility] Erythrocyte distribution wid th ratioOrdered By: Namrata Braden on 06-25-2024 Erythrocyte distribution width (RBC) [Ratio] 13.2 % 11.6-14.6 [facility] Erythrocyte distribution wid th standard deviationOrdered By: Namrata Braden on 06-25-2024 Erythrocyte distribution width (RBC) [Entitic vol] 42.6 fL 35.1-43.9 [facility] Erythrocyte distribution width (RBC) [Ratio] 42.6 fl 35.1-43.9 [facility] GFR/1.73 sq M.predicted [place] g non-blacks MDRD (S/P/Bld) [Vol rate/Area]Ordered By: Namrata Braden on 06-25-2024 Estimated GFR (MDRD) Non-Af Amer 49 Low >60 [facility] Comment on above: mL/min/1.73m2 CKD-EP I Creatinine Equation (2020) Glomerular filtration rate ( GFR) estimation/1.73 sq m using serum, plasma, or whole bOrdered By: Namrata Braden on 06-25-2024 GFR/1.73 sq M.predicted among non-blacks MDRD (S/P/Bld) [Vol rate/Area] 49 mL/min/{1.73_m2} Low >60 [facility] Comment on above: mL/min/1.73m2 CKD-EP I Creatinine Equation (2020) Hematocrit Auto (Bld) [Volum e fraction]Ordered By: Namrata Braden on 06-25-2024 Hematocrit (Bld) [Volume fraction] 41.8 % 37-47 [facility] Hemoglobin A1c percentageOrd ered By: Nadine Salamanca on 06-25-2024 HbA1c (Bld) [Mass fraction] 5.6 % Low >5.7 [facility] [facility] Hemoglobin measurementOrdere d By: Namrata Braden on 06-25-2024 Hemoglobin (Bld) [Mass/Vol] 13.5 g/dL 12.0-15.0 [facility] Immature granulocytes/100 WB C Auto (Bld)Ordered By: Namrata Braden on 06-25-2024 Immature granulocytes/100 WBC (Bld) 0.500 % 0.0-0.9 [facility] Comment on above: IG% - Immature Granu locytes (promyelocytes, myelocytes and metamyelocytes) > 1% indicates that a LEFT SHIFT is Present. Kidney and Bladderon 025 Kidney and Bladder [facility] Imaging Services [address] [place] [address] Kidney and Bladder MR#: [id number] Acct: [id number] Name: ISI GENAO Rep #: [id number] : 1965 F 59 From: Juan F Maloney MD PCP: Dr. Nadine Salamanca MD Status: REG CLI Study: Kidney and Bladder Date of Exam: 06/25/24 Exam# [id number] Ordering Dr: Aaron Matthews MD EXAM: US [...] IMPRESSION: Multiple bilateral renal cysts. Reading Location: [facility] CC: Dr. Nadine Salamanca MD; Dr. 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 Normal [facility] Laboratory - Chemistry and C hemistry - challengeOrdered By: Namrata Braden on 06-25-2024 AST [Catalytic activity/Vol] 22 U/L <32 [facility] Lymphocytes Auto (Unsp spec) [#/Vol]Ordered By: Namrata Braden on 06-25-2024 Lymphocytes (Bld) [#/Vol] 2.31 10*3/uL 0.83-4.51 [facility] Lymphocytes/100 WBC Auto (Un sp spec)Ordered By: Namrata Braden on 06-25-2024 Lymphocytes/100 WBC (Bld) 27.2 % 19-41 [facility] MCV (mean corpuscular volume ) determinationOrdered By: Namrata Braden on 06-25-2024 MCV (RBC) [Entitic vol] 89.3 fL 81-99 [facility] Mean corpuscular hemoglobin (MCH) determinationOrdered By: Namrata Braden on 06-25-2024 MCH (RBC) [Entitic mass] 28.8 pg 27.0-32.0 [facility] Mean corpuscular hemoglobin concentration (MCHC) determinationOrdered By: Namrata Braden on 06-25-2024 MCHC (RBC) [Mass/Vol] 32.3 g/dL 32-36 [facility] Mean platelet volume determi nationOrdered By: Namrata Braden on 06-25-2024 Platelet mean volume (Bld) [Entitic vol] 10.1 fL 6.2-12.0 [facility] Monocyte percentageOrdered B y: Namrata Braden on 06-25-2024 Monocytes/100 WBC (Bld) 8.7 % 0-10 [facility] Neutrophil percentageOrdered By: Namrata Braden on 06-25-2024 Neutrophils/100 WBC (Bld) 57.1 % 47-70 [facility] Nucleated red blood cell per centageOrdered By: Namrata Braden on 06-25-2024 Nucleated RBC/100 WBC (Bld) [Ratio] 0 % 0-5 [facility] Platelet countOrdered By: Beth Braden on 06-25-2024 Platelets (Bld) [#/Vol] 234 10*3/uL 150-450 [facility] Potassium (Unsp spec) [Mass/ Vol]Ordered By: Namrata Braden on 06-25-2024 Potassium [Moles/Vol] 4.6 mmol/L 3.3-5.1 [facility] Potassium measurement (mass/ volume)Ordered By: Namrata Braden on 06-25-2024 Potassium (Unsp spec) [Mass/Vol] 4.6 mmol/L 3.3-5.1 [facility] RBC Auto (Bld) [#/Vol]Ordere d By: Namrata Braden on 06-25-2024 RBC (Bld) [#/Vol] 4.68 10*6/uL 4.2-5.4 [facility] Serum creatinine measurement (mass/volume)Ordered By: Namrata Braden on 06-25-2024 Creatinine [Mass/Vol] 1.27 mg/dL High 0.70-1.20 [facility] Serum globulin measurementOr dered By: Namrata Braden on 06-25-2024 Globulin (S) [Mass/Vol] 2.5 g/dL 2.2-4.2 [facility] Serum glucose measurement (m ass/volume)Ordered By: Namrata Braden on 06-25-2024 Glucose [Mass/Vol] 91 mg/dL 70-99 [facility] Serum or plasma alanine peralta otransferase (ALT) measurementOrdered By: Namrata Braden on 06-25-2024 ALT [Catalytic activity/Vol] 23 U/L <35 [facility] Serum or plasma albumin paty urement (mass/volume)Ordered By: Namrata Braden on 06-25-2024 Albumin [Mass/Vol] 4.2 g/dL 3.5-5.0 [facility] Serum or plasma albumin/glob ulin mass ratioOrdered By: Namrata Braden on 06-25-2024 Albumin/Globulin [Mass ratio] 1.7 {ratio} 0.9-2.4 [facility] Serum or plasma alkaline elvia sphatase measurementOrdered By: Namrata Braden on 06-25-2024 ALP [Catalytic activity/Vol] 95 U/L 35-104 [facility] Serum or plasma calcium paty urement (mass/volume)Ordered By: Namrata Braden on 06-25-2024 Calcium [Mass/Vol] 9.7 mg/dL 7.6-11.0 [facility] Serum or plasma urea nitroge n measurement (mass/volume)Ordered By: Namrata Braden on 06-25-2024 Urea nitrogen [Mass/Vol] 16 mg/dL 4-19 [facility] Sodium levelOrdered By: Jose Braden on 06-25-2024 Sodium [Moles/Vol] 143 mmol/L 133-145 [facility] Total proteinOrdered By: Tom Braden on 06-25-2024 Protein [Mass/Vol] 6.7 g/dL 5.9-8.4 [facility] White blood cell (WBC) count Ordered By: Namrata Braden on 06-25-2024 WBC (Bld) [#/Vol] 8.5 10*3/uL 4.4-11.0 [facility] Internal Medicine Office Vis anna 06-11-2024 Internal Medicine Office Visit [facility] [address] [place] [address] [place], [place] [address] OFFICE VISIT Date of Service: 06/11/24 MR#: [id number] Acct: [id number] Name: ISI GENAO Rep #: [id number] : 1965 Provider: Dr. Nadine vick MD Age/Sex: 59/F Location[place] [facility] Status: Signed Intake Vital Signs 02/17/24 09:59 [...] nasal d (more content not included)... Normal [facility] Protein+Creatinine Ratio,Uri neon 05-30-2024 PROT:CRE RATIO 120 mg/g CRE Normal 0-200 [facility] Comment on above: Performed By: #### L 500.3400 #### [facility] Laboratory [address] [place], [address] UR CREAT 54.40 mg/dL Normal NO RANGE EST. [facility] Comment on above: Performed By: #### L 500.3400 #### [facility] Laboratory [address] [place], [address] Urine protein measurement (m ass/volume)Ordered By: Aaron Matthews on 05-30-2024 Protein (U) [Mass/Vol] 7 mg/dL Normal <=12 [facility] Comment on above: Performed By: #### L 500.3400 #### [facility] Laboratory [address] [place], [address] Creatinine Unsp time (U) [Ma ss/Vol]Ordered By: Aaron Matthews on 05-29-2024 Creatinine (U) [Mass/Vol] 54.40 mg/dL NO RANGE EST. [facility] Protein/Creatinine (U) [Mass ratio]Ordered By: Aaron Matthews on 05-29-2024 Urine Protein/Creatinine Ratio 120 mg/g CRE 0-200 [facility] Random urine creatinine paty urement (mass/volume)Ordered By: Aaron Matthews on 05-29-2024 Creatinine Unsp time (U) [Mass/Vol] 54.40 mg/dL NO RANGE EST. [facility] Urine protein/creatinine mas s ratioOrdered By: Aaron Matthews on 05-29-2024 Protein/Creatinine (U) [Mass ratio] 120 mg/g CRE 0-200 [facility] [id number] DOrdered By: Vinnie Matthews on 05-28-2024 Vitamin D 25-Hydroxy 37.4 ng/mL [facility] Comment on above: Vitamin D 25(OH) Sta tus Range Deficiency <20 ng/mL (50nmol/L) Insufficiency 20 - 30 ng/mL (50 - 75 nmol/L) Sufficiency 30 - 100 ng/mL (75 - 250 nmol/L) Toxicity >100 ng/mL (>250 nmol/L) Basic Metabolic Profile (BMP )on 05-28-2024 BUN/CRE 13.4 RATIO Normal 10-20 [facility] Comment on above: Performed By: #### L 500.3400 #### [facility] Laboratory [address] [place], [address] CA,Total 9.3 mg/dL Normal 8.5-10.1 [facility] Comment on above: Performed By: #### L 500.3400 #### [facility] Laboratory [address] [place], [address] Chloride [Moles/Vol] 109 mmol/L High 98-107 [facility] Comment on above: Performed By: #### L 500.3400 #### [facility] Laboratory [address] [place], [address] CO2 [Moles/Vol] 25.0 mmol/L Normal 21.0-32.0 [facility] Comment on above: Performed By: #### L 500.3400 #### [facility] Laboratory [address] [place], [address] Creatinine [Mass/Vol] 1.42 mg/dL High 0.55-1.02 [facility] Comment on above: Result Comment: The validity of the calculated GFR GFRAA in patients over 70 years has not been determined. Clinical correlation is essential. Performed By: #### L 500.3400 #### [facility] Laboratory [address] [place], [address] EST GFR - AA 49 mL/min Low >60 [facility] Comment on above: Result Comment: Afri can [place] GFR Calc Performed By: #### L 500.3400 #### [facility] Laboratory [address] [place], [address] GAP 8 Normal 5-15 [facility] Comment on above: Performed By: #### L 500.3400 #### [facility] Laboratory [address] [place], [address] GFR/1.73 sq M.predicted among non-blacks MDRD (S/P/Bld) [Vol rate/Area] 40 mL/min/{1.73_m2} Low >60 [facility] Comment on above: Result Comment: Non- GFR Calc Performed By: #### L 500.3400 #### [facility] Laboratory [address] [place], [address] Glucose [Mass/Vol] 115 mg/dL High 74-106 [facility] Comment on above: Result Comment: Fast ing Glucose result from 100 to 125 mg/dL suggests IMPAIRED HOMEOSTASIS per A.D.A. criteria. Performed By: #### L 500.3400 #### [facility] Laboratory [address] [place], [address] Potassium [Moles/Vol] 4.2 mmol/L Normal 3.5-5.1 [facility] Comment on above: Performed By: #### L 500.3400 #### [facility] Laboratory [address] [place], [address] Sodium [Moles/Vol] 142 mmol/L Normal 136-145 [facility] Comment on above: Performed By: #### L 500.3400 #### [facility] Laboratory [address] [place], [place], [id number] Urea nitrogen [Mass/Vol] 19 mg/dL High 7-18 [facility] Comment on above: Performed By: #### L 500.3400 #### [facility] Laboratory [address] [place], [place], [id number] Bilirubin directOrdered By: Aaron Matthews on 05-28-2024 Bilirubin.direct [Mass/Vol] 0.11 mg/dL 0.00-0.30 [facility] Bilirubin, totalOrdered By: Aaron Matthews on 05-28-2024 Bilirubin [Mass/Vol] 0.40 mg/dL 0.20-1.00 [facility] Comment on above: For patients on eltr ombopag therapy, use of Dimension [place] TBIL is not recommended. Blood urea nitrogen (BUN)/cr eatinine ratioOrdered By: Aaron Matthews on 05-28-2024 Urea nitrogen/Creatinine [Mass ratio] 13.4 mg/mg 10-20 [facility] CBC-Complete Blood Cnt No Di ffon 05-28-2024 Erythrocyte distribution width (RBC) [Ratio] 13.1 % Normal 11.6-14.6 [facility] Comment on above: Performed By: #### L 500.3400 #### [facility] Laboratory [address] [place], [place], [id number] ([phone] Hematocrit (Bld) [Volume fraction] 42.5 % Normal 37-47 [facility] Comment on above: Performed By: #### L 500.3400 #### [facility] Laboratory [address] [place], [place], [phone] Hemoglobin (Bld) [Mass/Vol] 13.8 g/dL Normal 12.0-15.0 [facility] Comment on above: Performed By: #### L 500.3400 #### [facility] Laboratory [address] [place], [place], [id number] ([phone]) MCH (RBC) [Entitic mass] 29.0 pg Normal 27.0-32.0 [facility] Comment on above: Performed By: #### L 500.3400 #### [facility] Laboratory [address] [place], [address] MCHC (RBC) [Mass/Vol] 32.5 g/dL Normal 32-36 [facility] Comment on above: Performed By: #### L 500.3400 #### [facility] Laboratory [address] [place], [address] MCV (RBC) [Entitic vol] 89.3 fL Normal 81-99 [facility] Comment on above: Performed By: #### L 500.3400 #### [facility] Laboratory [address] [place], [address] Platelet mean volume (Bld) [Entitic vol] 10.0 fL Normal 6.2-12.0 [facility] Comment on above: Performed By: #### L 500.3400 #### [facility] Laboratory [address] [place], [address] Platelets (Bld) [#/Vol] 249 10*3/uL Normal 150-450 [facility] Comment on above: Performed By: #### L 500.3400 #### [facility] Laboratory [address] [place], [address] RBC (Bld) [#/Vol] 4.76 10*6/uL Normal 4.2-5.4 [facility] Comment on above: Performed By: #### L 500.3400 #### [facility] Laboratory [address] [place], [address] RDW SD 42.9 fl Normal 35.1-43.9 [facility] Comment on above: Performed By: #### L 500.3400 #### [facility] Laboratory [address] [place], [address] WBC (Bld) [#/Vol] 10.1 10*3/uL Normal 4.4-11.0 [facility] Comment on above: Performed By: #### L 561.6873 #### [facility] [place], [address] Carbon dioxide measurementOr dered By: Aaron Matthews on 05-28-2024 CO2 [Moles/Vol] 25.0 mmol/L 21.0-32.0 [facility] Chloride measurementOrdered By: Aaron Matthews on 05-28-2024 Chloride [Moles/Vol] 109 mmol/L High 98-107 [facility] Erythrocyte distribution wid th ratioOrdered By: [facility] Cassie on 05-28-2024 Erythrocyte distribution width (RBC) [Ratio] 13.1 % 11.6-14.6 [facility] Erythrocyte distribution wid th standard deviationOrdered By: [facility] Cassie on 05-28-2024 Erythrocyte distribution width (RBC) [Entitic vol] 42.9 fL 35.1-43.9 [facility] Erythrocyte distribution width (RBC) [Ratio] 42.9 fl 35.1-43.9 [facility] Estimated glomerular filtrat ion rate (GFR) AmericanOrdered By: Aaron Matthews on 05-28-2024 Estimated GFR (MDRD) Amer 49 mL/min Low >60 [facility] Comment on above: GFR Calc Glomerular filtration rate ( GFR) estimationOrdered By: Aaron Matthews on 05-28-2024 Estimated GFR (MDRD) Non-Af Amer 40 mL/min Low >60 [facility] Comment on above: Non- GFR Calc GFR/1.73 sq M.predicted among non-blacks MDRD (S/P/Bld) [Vol rate/Area] 40 mL/min/{1.73_m2} Low >60 [facility] Comment on above: Non- GFR Calc Glucose measurementOrdered B y: Aaron Matthews on 05-28-2024 Glucose [Mass/Vol] 115 mg/dL High 74-106 [facility] Comment on above: Fasting Glucose resu lt from 100 to 125 mg/dL suggests IMPAIRED HOMEOSTASIS per A.D.A. criteria. Hematocrit Auto (Bld) [Volum e fraction]Ordered By: Aaron Matthews on 05-28-2024 Hematocrit (Bld) [Volume fraction] 42.5 % 37-47 [facility] Hemoglobin measurementOrdere d By: Aaron Matthews on 05-28-2024 Hemoglobin (Bld) [Mass/Vol] 13.8 g/dL 12.0-15.0 [facility] Intact parathyroid hormone ( iPTH) measurementOrdered By: Aaron Matthews on 05-28-2024 Parathyroid Hormone (Intact) 86.6 pg/mL High 18.4-80.1 [facility] Laboratory - Chemistry and C hemistry - challengeOrdered By: Aaron Matthews on 05-28-2024 AST [Catalytic activity/Vol] 24 U/L 15- [facility] Liver Profileon 05-28-2024 Albumin [Mass/Vol] 3.8 g/dL Normal 3.2-5.0 [facility] Comment on above: Performed By: #### L 500.3400 #### [facility] Laboratory [address] [place], [address] ALK P 99 U/L Normal 45-117 [facility] Comment on above: Performed By: #### L 500.3400 #### [facility] Laboratory [address] [place], [address] ALT [Catalytic activity/Vol] 36 U/L Normal 13-56 [facility] Comment on above: Performed By: #### L 500.3400 #### [facility] Laboratory [address] [place], [address] AST [Catalytic activity/Vol] 24 U/L Normal 15-37 [facility] Comment on above: Performed By: #### L 500.3400 #### [facility] Laboratory [address] [place], [address] Bilirubin [Mass/Vol] 0.40 mg/dL Normal 0.20-1.00 [facility] Comment on above: Result Comment: For patients on eltrombopag therapy, use of Dimension [place] TBIL is not recommended. Performed By: #### L 500.3400 #### [facility] Laboratory [address] [place], [place], [id number] Bilirubin.direct [Mass/Vol] 0.11 mg/dL Normal 0.00-0.30 [facility] Comment on above: Performed By: #### L 500.3400 #### [facility] Laboratory [address] [place], [address] Globulin (S) [Mass/Vol] 3.1 g/dL Normal 2.2-4.2 [facility] Comment on above: Performed By: #### L 500.3400 #### [facility] Laboratory [address] [place], [place], [id number] T PROT 6.9 g/dL Normal 6.4-8.2 [facility] Comment on above: Performed By: #### L 500.3400 #### [facility] Laboratory [address] [place], [place], [id number] MCV (mean corpuscular volume ) determinationOrdered By: Aaron Cassie on 05-28-2024 MCV (RBC) [Entitic vol] 89.3 fL 81-99 [facility] Mean corpuscular hemoglobin (MCH) [facility]Ordered By: [facility] 05-28-[facility] MCH (RBC) [Entitic mass] 29.0 pg 27.0-32.0 [facility] Mean corpuscular hemoglobin concentration (MCHC) determinationOrdered By: [facility] Cassie on 05-28-2024 MCHC (RBC) [Mass/Vol] 32.5 g/dL 32-36 [facility] Mean platelet volume determi nationOrdered By: [facility] Cassie on 05-28-2024 Platelet mean volume (Bld) [Entitic vol] 10.0 fL 6.2-12.0 [facility] PTHINon 05-28-2024 PTH 86.6 pg/mL High 18.4-80.1 [facility] Comment on above: Performed By: #### L 500.3400 #### [facility] Laboratory [address] [place], [address] Phosphoruson 05-28-2024 Phosphate [Mass/Vol] 3.9 mg/dL Normal 2.5-4.9 [facility] Comment on above: Performed By: #### L 500.3400 #### [facility] [address] [place], [address] Phosphorus measurementOrdere d By: Aaron Cassie on 05-28-2024 Phosphorus Level 3.9 mg/dL 2.5-4.9 [facility] Platelet countOrdered By: Ru pesh Cassie on 05-28-2024 Platelets (Bld) [#/Vol] 249 10*3/uL 150-450 [facility] Potassium measurementOrdered By: Aaron Cassie on 05-28-2024 Potassium [Moles/Vol] 4.2 mmol/L 3.5-5.1 [facility] Protein+Creatinine Ratio,Uri neon 05-28-2024 PROT:CRE RATIO Normal 0-200 [facility] Comment on above: Result Comment: AKANKSHA ENT DROPPED URINE IN TOILET Performed By: #### L 500.3400 #### [facility] Laboratory [address] [place], [address] PROTEIN,UR.RAN. Normal <11.9 [facility] Comment on above: Result Comment: AKANKSHA ENT DROPPED URINE IN TOILET Performed By: #### L 500.3400 #### [facility] [address] [place], [address] UR CREAT Normal NO RANGE EST. [facility] Comment on above: Result Comment: AKANKSHA ENT DROPPED URINE IN TOILET Performed By: #### L 500.3400 #### [facility] [address] [place], [address] RBC Auto (Bld) [#/Vol]Ordere d By: Aaron Cassie on 05-28-2024 RBC (Bld) [#/Vol] 4.76 10*6/uL 4.2-5.4 [facility] Serum anion gap measurementO rdered By: [facility] Cassie on 05-28-2024 Anion gap [Moles/Vol] 8 mmol/L 5-15 [facility] Serum globulin measurementOr dered By: [facility] Cassie on 05-28-2024 Globulin (S) [Mass/Vol] 3.1 g/dL 2.2-4.2 [facility] Serum or plasma alanine peralta otransferase (ALT) measurementOrdered By: [facility] on 05-28-2024 ALT [Catalytic activity/Vol] 36 U/L 13-56 [facility] Serum or plasma albumin paty urement (mass/volume)Ordered By: [facility] 05-28-2024 Albumin [Mass/Vol] 3.8 g/dL 3.2-5.0 [facility] Serum or plasma alkaline elvia sphatase measurementOrdered By: [facility] on 05-28-2024 ALP [Catalytic activity/Vol] 99 U/L 45-117 [facility] Serum or plasma calcium paty urement (mass/volume)Ordered By: [facility] on 05-28-2024 Calcium [Mass/Vol] 9.3 mg/dL 8.5-10.1 [facility] Serum or plasma creatinine m easurement (mass/volume)Ordered By: [facility] on 05-28-2024 Creatinine [Mass/Vol] 1.42 mg/dL High 0.55-1.02 [facility] Comment on above: The validity of the calculated GFR & GFRAA in patients over 70 years has not been determined. Clinical correlation is essential. Serum or plasma urea nitroge n measurement (mass/volume)Ordered By: [facility] on 05-28-2024 Urea nitrogen [Mass/Vol] 19 mg/dL High 7-18 [facility] Sodium levelOrdered By: [facility] on 05-28-2024 Sodium [Moles/Vol] 142 mmol/L 136-145 [facility] Total proteinOrdered By: [facility] 05-28-[facility] Protein [Mass/Vol] 6.9 g/dL 6.4-8.2 [facility] Vitamin D,25 Hydroxyon 05-28 Vitamin D 25-OH 37.4 ng/mL Normal [facility] Comment on above: Result Comment: Monika min D 25(OH) Status Range Deficiency <20 ng/mL (50nmol/L) Insufficiency 20 - 30 ng/mL (50 - 75 nmol/L) Sufficiency 30 - 100 ng/mL (75 - 250 nmol/L) Toxicity >100 ng/mL (>250 nmol/L) Performed By: #### L 500.3400 #### [facility] [address] [place], [address] White blood cell (WBC) count Ordered By: Aaron Matthews on 05-28-2024 WBC (Bld) [#/Vol] 10.1 10*3/uL 4.4-11.0 [facility] Bilirubin directOrdered By: Aaron Matthews on 04-30-2024 Bilirubin.direct [Mass/Vol] 0.10 mg/dL 0.00-0.30 [facility] Bilirubin, totalOrdered By: Aaron Matthews on 04-30-2024 Bilirubin [Mass/Vol] 0.40 mg/dL 0.20-1.00 [facility] Comment on above: For patients on eltr ombopag therapy, use of Dimension [place] TBIL is not recommended. Laboratory - Chemistry and C hemistry - challengeOrdered By: Aaron Matthews on 04-30-2024 AST [Catalytic activity/Vol] 19 U/L 15-37 [facility] Liver Profileon 04-30-2024 Albumin [Mass/Vol] 3.8 g/dL Normal 3.2-5.0 [facility] Comment on above: Performed By: #### L 500.3400 #### [facility] [address] [place], [address] ALK P 101 U/L Normal 45-117 [facility] Comment on above: Performed By: #### L 500.3400 #### [facility] [address] [place], [address] ALT [Catalytic activity/Vol] 41 U/L Normal 13-56 [facility] Comment on above: Performed By: #### L 500.3400 #### [facility] [address] [place], [address] AST [Catalytic activity/Vol] 19 U/L Normal 15-37 [facility] Comment on above: Performed By: #### L 500.3400 #### [facility] [address] [place], [address] Bilirubin [Mass/Vol] 0.40 mg/dL Normal 0.20-1.00 [facility] Comment on above: Result Comment: For patients on eltrombopag therapy, use of Dimension [place] TBIL is not recommended. Performed By: #### L 500.3400 #### [facility] [address] [place], [address] Bilirubin.direct [Mass/Vol] 0.10 mg/dL Normal 0.00-0.30 [facility] Comment on above: Performed By: #### L 500.3400 #### [facility] [address] [place], [address] Globulin (S) [Mass/Vol] 3.4 g/dL Normal 2.2-4.2 [facility] Comment on above: Performed By: #### L 500.3400 #### [facility] [address] [place], [address] T PROT 7.2 g/dL Normal 6.4-8.2 [facility] Comment on above: Performed By: #### L 500.3400 #### [facility] [address] [place], [address] Serum globulin measurementOr dered By: Aaron Matthews on 04-30-2024 Globulin (S) [Mass/Vol] 3.4 g/dL 2.2-4.2 [facility] Serum or plasma alanine peralta otransferase (ALT) measurementOrdered By: Aaron Matthews on 04-30-2024 ALT [Catalytic activity/Vol] 41 U/L 13-56 [facility] Serum or plasma albumin paty urement (mass/volume)Ordered By: [facility] Cassie on 04-30-2024 Albumin [Mass/Vol] 3.8 g/dL 3.2-5.0 [facility] Serum or plasma alkaline elvia sphatase measurementOrdered By: [facility] Cassie on 04-30-2024 ALP [Catalytic activity/Vol] 101 U/L 45-117 [facility] Total proteinOrdered By: [facility] on 04-30-2024 Protein [Mass/Vol] 7.2 g/dL 6.4-8.2 [facility] Absolute neutrophil countOrd ered By: Namrata Braden on 04-02-2024 Neutrophils (Bld) [#/Vol] 3.1 10*3/uL 2.0-7.7 [facility] Albumin to globulin ratioOrd ered By: Namrata Braden on 04-02-2024 Albumin/Globulin [Mass ratio] 1.1 {ratio} 0.9-2.4 [facility] Basophil percentageOrdered B y: Namrata Braden on 04-02-2024 Basophils/100 WBC (Bld) 1.1 % High 0-1 [facility] Bilirubin directOrdered By: Namrata Braden on 04-02-2024 Bilirubin.direct [Mass/Vol] 0.08 mg/dL 0.00-0.30 [facility] Bilirubin, Directon 04-02-20 24 Bilirubin.direct [Mass/Vol] 0.08 mg/dL Normal 0.00-0.30 [facility] Comment on above: Order Comment: DR. Vinnie KLEIN ORDERED LIVER PANELDR. BRADEN ORDERED CBCD AND CMP Performed By: #### L 500.6039 #### [facility] [address] [place], [address] Bilirubin, totalOrdered By: Namrata Braden on 04-02-2024 Bilirubin [Mass/Vol] 0.50 mg/dL 0.20-1.00 [facility] Comment on above: For patients on eltr ombopag therapy, use of Dimension [place] TBIL is not recommended. Blood urea nitrogen (BUN)/cr eatinine ratioOrdered By: Namrata Braden on 04-02-2024 Urea nitrogen/Creatinine [Mass ratio] 11.5 mg/mg - [facility] CBC W/Diff, Automatedon 12 Absolute Lymph 2.15 X10 3/uL Normal 0.83-4.51 [facility] Comment on above: Order Comment: DR. Vinnie KLEIN ORDERED LIVER PANELDR. BRADEN ORDERED CBCD AND CMP Performed By: #### L 500.3400 #### [facility] [address] [place], [address] Absolute Neut 3.1 X10 3/uL Normal 2.0-7.7 [facility] Comment on above: Order Comment: DR. Vinnie KLEIN ORDERED LIVER PANELDR. BRADEN ORDERED CBCD AND CMP Performed By: #### L 500.3400 #### [facility] [address] [place], [address] Basophils/100 WBC (Bld) 1.1 % High 0-1 [facility] Comment on above: Order Comment: DR. Vinnie KLEIN ORDERED LIVER PANELDR. BRADEN ORDERED CBCD AND CMP Performed By: #### L 500.3400 #### [facility] [address] [place], [address] Eosinophils/100 WBC (Bld) 6.5 % High 0-5 [facility] Comment on above: Order Comment: DR. Vinnie KLEIN ORDERED LIVER PANELDR. BRADEN ORDERED CBCD AND CMP Performed By: #### L 500.3400 #### [facility] [address] [place], [address] Erythrocyte distribution width (RBC) [Ratio] 12.4 % Normal 11.6-14.6 [facility] Comment on above: Order Comment: DR. Vinnie KLEIN ORDERED LIVER PANELDR. BRADEN ORDERED CBCD AND CMP Performed By: #### L 500.3400 #### [facility] [address] [place], [address] Hematocrit (Bld) [Volume fraction] 42.3 % Normal 37-47 [facility] Comment on above: Order Comment: DR. Vinnie KLEIN ORDERED LIVER PANELDRJose Eduardo BRADEN ORDERED CBCD AND CMP Performed By: #### L 500.3400 #### [facility] [address] [place], [address] Hemoglobin (Bld) [Mass/Vol] 13.6 g/dL Normal 12.0-15.0 [facility] Comment on above: Order Comment: DR. Vinnie KLEIN ORDERED LIVER PANELDRJose Eduardo BRADEN ORDERED CBCD AND CMP Performed By: #### L 500.3400 #### [facility] [address] [place], [address] IG% 0.300 Normal 0.0-0.9 [facility] Comment on above: Order Comment: DR. Vinnie KLEIN ORDERED LIVER PANELDRJose Eduardo BRADEN ORDERED CBCD AND CMP Result Comment: IG% - Immature Granulocytes (promyelocytes, myelocytes and metamyelocytes) > 1% indicates that a LEFT SHIFT is Present. Performed By: #### L 500.3400 #### [facility] [address] [place], [address] Lymphocytes/100 WBC (Bld) 34.0 % Normal 19-41 [facility] Comment on above: Order Comment: DR. Vinnie KLEIN ORDERED LIVER PANELDRJose Eduardo BRADEN ORDERED CBCD AND CMP Performed By: #### L 500.3400 #### [facility] [address] [place], [address] MCH (RBC) [Entitic mass] 28.4 pg Normal 27.0-32.0 [facility] Comment on above: Order Comment: DR. Vinnie KLEIN ORDERED LIVER PANELDRJose Eduardo BRADEN ORDERED CBCD AND CMP Performed By: #### L 500.3400 #### [facility] [address] [place], [address] MCHC (RBC) [Mass/Vol] 32.2 g/dL Normal 32-36 [facility] Comment on above: Order Comment: DR. Vinnie KLEIN ORDERED LIVER PANELDR. BRADEN ORDERED CBCD AND CMP Performed By: #### L 500.3400 #### [facility] [address] [place], [address] MCV (RBC) [Entitic vol] 88.3 fL Normal 81-99 [facility] Comment on above: Order Comment: DR. Vinnie KLEIN ORDERED LIVER PANELDR. BRADEN ORDERED CBCD AND CMP Performed By: #### L 500.3400 #### [facility] [address] [place], [address] Monocytes/100 WBC (Bld) 8.5 % Normal 0-10 [facility] Comment on above: Order Comment: DR. Vinnie KLEIN ORDERED LIVER PANELDR. BRADEN ORDERED CBCD AND CMP Performed By: #### L 500.3400 #### [facility] [address] [place], [address] Neutrophils/100 WBC (Bld) 49.6 % Normal 47-70 [facility] Comment on above: Order Comment: DR. Vinnie KLEIN ORDERED LIVER PANELDR. BRADEN ORDERED CBCD AND CMP Performed By: #### L 500.3400 #### [facility] [address] [place], [address] Nucleated RBC (Bld) [#/Vol] 0 10*3/uL Normal 0-5 [facility] Comment on above: Order Comment: DR. Vinnie KLEIN ORDERED LIVER PANELDR. BRADEN ORDERED CBCD AND CMP Performed By: #### L 500.3400 #### [facility] [address] [place], [address] Platelet mean volume (Bld) [Entitic vol] 10.0 fL Normal 6.2-12.0 [facility] Comment on above: Order Comment: DR. Vinnie KLEIN ORDERED LIVER PANELDR. BRADEN ORDERED CBCD AND CMP Performed By: #### L 500.3400 #### [facility] [address] [place], [address] Platelets (Bld) [#/Vol] 231 10*3/uL Normal 150-450 [facility] Comment on above: Order Comment: DR. Vinnie KLEIN ORDERED LIVER PANELDR. BRADEN ORDERED CBCD AND CMP Performed By: #### L 500.3400 #### [facility] [address] [place], [address] RBC (Bld) [#/Vol] 4.79 10*6/uL Normal 4.2-5.4 [facility] Comment on above: Order Comment: DR. Vinnie KLEIN ORDERED LIVER PANELDR. BRADEN ORDERED CBCD AND CMP Performed By: #### L 500.3400 #### [facility] [address] [place], [address] RDW SD 40.0 fl Normal 35.1-43.9 [facility] Comment on above: Order Comment: DR. Vinnie KLEIN ORDERED LIVER PANELDR. BRADEN ORDERED CBCD AND CMP Performed By: #### L 500.3400 #### [facility] [address] [place], [address] WBC (Bld) [#/Vol] 6.3 10*3/uL Normal 4.4-11.0 [facility] Comment on above: Order Comment: DR. Vinnie KLEIN ORDERED LIVER PANELDR. BRADEN ORDERED CBCD AND CMP Performed By: #### L 500.3400 #### [facility] [address] [place], [address] Carbon dioxide measurementOr dered By: Namrata Braden on 04-02-2024 CO2 [Moles/Vol] 26.0 mmol/L 21.0-32.0 [facility] Chloride measurementOrdered By: Namrata Braden on 04-02-2024 Chloride [Moles/Vol] 109 mmol/L High 98-107 [facility] Comprehensive Metabolic Prof ilon 04-02-2024 Albumin [Mass/Vol] 3.6 g/dL Normal 3.2-5.0 [facility] Comment on above: Order Comment: DR. Vinnie KLEIN ORDERED LIVER PANELDR. BRADEN ORDERED CBCD AND CMP Performed By: #### L 500.3400 #### [facility] [address] [place], [address] Albumin/Globulin [Mass ratio] 1.1 {ratio} Normal 0.9-2.4 [facility] Comment on above: Order Comment: DR. Vinnie KLEIN ORDERED LIVER PANELDR. BRADEN ORDERED CBCD AND CMP Performed By: #### L 500.3400 #### [facility] [address] [place], [address] ALK P 95 U/L Normal 45-117 [facility] Comment on above: Order Comment: DR. Vinnie KLEIN ORDERED LIVER PANELDR. BRADEN ORDERED CBCD AND CMP Performed By: #### L 500.3400 #### [facility] [address] [place], [address] ALT [Catalytic activity/Vol] 41 U/L Normal 13-56 [facility] Comment on above: Order Comment: DR. Vinnie LKEIN ORDERED LIVER PANELDR. BRADEN ORDERED CBCD AND CMP Performed By: #### L 500.3400 #### [facility] [address] [place], [address] AST [Catalytic activity/Vol] 23 U/L Normal 15-37 [facility] Comment on above: Order Comment: DR. Vinnie KLEIN ORDERED LIVER PANELDR. BRADEN ORDERED CBCD AND CMP Performed By: #### L 500.3400 #### [facility] [address] [place], [address] Bilirubin [Mass/Vol] 0.50 mg/dL Normal 0.20-1.00 [facility] Comment on above: Order Comment: DR. Vinnie KLEIN ORDERED LIVER PANELDR. BRADEN ORDERED CBCD AND CMP Result Comment: For patients on eltrombopag therapy, use of Dimension [place] TBIL is not recommended. Performed By: #### L 500.3400 #### [facility] [address] [place], [address] BUN/CRE 11.5 RATIO Normal 10-20 [facility] Comment on above: Order Comment: DR. Vinnie KLEIN ORDERED LIVER PANELDR. BRADEN ORDERED CBCD AND CMP Performed By: #### L 500.3400 #### [facility] [address] [place], [address] CA,Total 9.5 mg/dL Normal 8.5-10.1 [facility] Comment on above: Order Comment: DR. Vinnie KLEIN ORDERED LIVER PANELDR. BRADEN ORDERED CBCD AND CMP Performed By: #### L 500.3400 #### [facility] [address] [place], [address] Chloride [Moles/Vol] 109 mmol/L High 98-107 [facility] Comment on above: Order Comment: DR. Vinnie KLEIN ORDERED LIVER PANELDR. BRADEN ORDERED CBCD AND CMP Performed By: #### L 500.3400 #### [facility] [address] [place], [address] CO2 [Moles/Vol] 26.0 mmol/L Normal 21.0-32.0 [facility] Comment on above: Order Comment: DR. Vinnie KLEIN ORDERED LIVER PANELDR. BRADEN ORDERED CBCD AND CMP Performed By: #### L 500.3400 #### [facility] [address] [place], [address] Creatinine [Mass/Vol] 1.39 mg/dL High 0.55-1.02 [facility] Comment on above: Order Comment: DR. Vinnie KLEIN ORDERED LIVER PANELDR. BRADEN ORDERED CBCD AND CMP Result Comment: The validity of the calculated GFR GFRAA in patients over 70 years has not been determined. Clinical correlation is essential. Performed By: #### L 500.3400 #### [facility] [address] [place], [address] EST GFR - AA 50 mL/min Low >60 [facility] Comment on above: Order Comment: DR. Vinnie KLEIN ORDERED LIVER PANELDR. BRADEN ORDERED CBCD AND CMP Result Comment: Afri can [place] GFR Calc Performed By: #### L 500.3400 #### [facility] [address] [place], [address] GAP 6 Normal 5-15 [facility] Comment on above: Order Comment: DR. Vinnie KLEIN ORDERED LIVER PANELDR. BRADEN ORDERED CBCD AND CMP Performed By: #### L 500.3400 #### [facility] [address] [place], [address] GFR/1.73 sq M.predicted among non-blacks MDRD (S/P/Bld) [Vol rate/Area] 41 mL/min/{1.73_m2} Low >60 [facility] Comment on above: Order Comment: DR. Vinnie KLEIN ORDERED LIVER PANELDR. BRADEN ORDERED CBCD AND CMP Result Comment: Non- GFR Calc Performed By: #### L 500.3400 #### [facility] [address] [place], [address] Globulin (S) [Mass/Vol] 3.3 g/dL Normal 2.2-4.2 [facility] Comment on above: Order Comment: DR. Vinnie KLEIN ORDERED LIVER PANELDR. BRADEN ORDERED CBCD AND CMP Performed By: #### L 500.3400 #### [facility] [address] [place], [address] Glucose [Mass/Vol] 109 mg/dL High 74-106 [facility] Comment on above: Order Comment: DR. Vinnie KLEIN ORDERED LIVER PANELDR. BRADEN ORDERED CBCD AND CMP Result Comment: Fast ing Glucose result from 100 to 125 mg/dL suggests IMPAIRED HOMEOSTASIS per A.D.A. criteria. Performed By: #### L 500.3400 #### [facility] [address] [place], [address] Potassium [Moles/Vol] 4.2 mmol/L Normal 3.5-5.1 [facility] Comment on above: Order Comment: DR. Vinnie KLEIN ORDERED LIVER PANELDR. BRADEN ORDERED CBCD AND CMP Performed By: #### L 500.3400 #### [facility] [address] [place], [address] Sodium [Moles/Vol] 141 mmol/L Normal 136-145 [facility] Comment on above: Order Comment: DR. Vinnie KLEIN ORDERED LIVER PANELDR. BRADEN ORDERED CBCD AND CMP Performed By: #### L 500.3400 #### [facility] [address] [place], [address] T PROT 6.9 g/dL Normal 6.4-8.2 [facility] Comment on above: Order Comment: DR. Vinnie KLEIN ORDERED LIVER PANELDR. BRADEN ORDERED CBCD AND CMP Performed By: #### L 500.3400 #### [facility] [address] [place], [address] Urea nitrogen [Mass/Vol] 16 mg/dL Normal 7-18 [facility] Comment on above: Order Comment: DR. Vinnie KLEIN ORDERED LIVER PANELDR. BRADEN ORDERED CBCD AND CMP Performed By: #### L 500.3400 #### [facility] [address] [place], [address] Eosinophil percentageOrdered By: Namrata Braden on 04-02-2024 Eosinophils/100 WBC (Bld) 6.5 % High 0-5 [facility] Erythrocyte distribution wid th ratioOrdered By: Namrata Braden on 04-02-2024 Erythrocyte distribution width (RBC) [Ratio] 12.4 % 11.6-14.6 [facility] Erythrocyte distribution wid th standard deviationOrdered By: aNmrata Braden on 04-02-2024 Erythrocyte distribution width (RBC) [Entitic vol] 40.0 fL 35.1-43.9 [facility] Estimated glomerular filtrat ion rate (GFR) AmericanOrdered By: Namrata Braden on 04-02-2024 Estimated GFR (MDRD) Amer 50 mL/min Low >60 [facility] Comment on above: GFR Calc Glomerular filtration rate ( GFR) estimationOrdered By: Namrata Braden on 04-02-2024 Estimated GFR (MDRD) Non-Af Amer 41 mL/min Low >60 [facility] Comment on above: Non- GFR Calc Glucose measurementOrdered B y: Namrata Braden on 04-02-2024 Glucose [Mass/Vol] 109 mg/dL High 74-106 [facility] Comment on above: Fasting Glucose resu lt from 100 to 125 mg/dL suggests IMPAIRED HOMEOSTASIS per A.D.A. criteria. Hematocrit Auto (Bld) [Volum e fraction]Ordered By: Namrata Braden on 04-02-2024 Hematocrit (Bld) [Volume fraction] 42.3 % 37-47 [facility] Hemoglobin measurementOrdere d By: Namrata Braden on 04-02-2024 Hemoglobin (Bld) [Mass/Vol] 13.6 g/dL 12.0-15.0 [facility] Immature granulocytes/100 WB C Auto (Bld)Ordered By: Namrata Braden on 04-02-2024 Immature granulocytes/100 WBC (Bld) 0.300 % 0.0-0.9 [facility] Comment on above: IG% - Immature Granu locytes (promyelocytes, myelocytes and metamyelocytes) > 1% indicates that a LEFT SHIFT is Present. Laboratory - Chemistry and C hemistry - challengeOrdered By: Namrata Braden on 04-02-2024 AST [Catalytic activity/Vol] 23 U/L 15-37 [facility] Lymphocytes Auto (Unsp spec) [#/Vol]Ordered By: Namrata Braden on 04-02-2024 Lymphocytes (Bld) [#/Vol] 2.15 10*3/uL 0.83-4.51 [facility] Lymphocytes/100 WBC Auto (Un sp spec)Ordered By: Namrata Braden on 04-02-2024 Lymphocytes/100 WBC (Bld) 34.0 % 19-41 [facility] MCV (mean corpuscular volume ) determinationOrdered By: Namrata Braden on 04-02-2024 MCV (RBC) [Entitic vol] 88.3 fL 81-99 [facility] Mean corpuscular hemoglobin (MCH) determinationOrdered By: Namrata Braden on 04-02-2024 MCH (RBC) [Entitic mass] 28.4 pg 27.0-32.0 [facility] Mean corpuscular hemoglobin concentration (MCHC) determinationOrdered By: Namrata Braden on 04-02-2024 MCHC (RBC) [Mass/Vol] 32.2 g/dL 32-36 [facility] Mean platelet volume determi nationOrdered By: Namrata Braden on 04-02-2024 Platelet mean volume (Bld) [Entitic vol] 10.0 fL 6.2-12.0 [facility] Monocyte percentageOrdered B y: Namrata Braden on 04-02-2024 Monocytes/100 WBC (Bld) 8.5 % 0-10 [facility] Neutrophil percentageOrdered By: Namrata Braden on 04-02-2024 Neutrophils/100 WBC (Bld) 49.6 % 47-70 [facility] Nucleated red blood cell per centageOrdered By: Namrata Braden on 04-02-2024 Nucleated RBC/100 WBC (Bld) [Ratio] 0 % 0-5 [facility] Platelet countOrdered By: Beth Braden on 04-02-2024 Platelets (Bld) [#/Vol] 231 10*3/uL 150-450 [facility] Potassium measurementOrdered By: Namrata Braden on 04-02-2024 Potassium [Moles/Vol] 4.2 mmol/L 3.5-5.1 [facility] RBC Auto (Bld) [#/Vol]Ordere d By: Namrata Braden on 04-02-2024 RBC (Bld) [#/Vol] 4.79 10*6/uL 4.2-5.4 [facility] Serum anion gap measurementO rdered By: Namrata Braden on 04-02-2024 Anion gap [Moles/Vol] 6 mmol/L 5-15 [facility] Serum globulin measurementOr dered By: Namrata Braden on 04-02-2024 Globulin (S) [Mass/Vol] 3.3 g/dL 2.2-4.2 [facility] Serum or plasma alanine peralta otransferase (ALT) measurementOrdered By: Namrata Braden on 04-02-2024 ALT [Catalytic activity/Vol] 41 U/L 13-56 [facility] Serum or plasma albumin paty urement (mass/volume)Ordered By: Namrata Braden on 04-02-2024 Albumin [Mass/Vol] 3.6 g/dL 3.2-5.0 [facility] Serum or plasma alkaline elvia sphatase measurementOrdered By: Namrata Braden on 04-02-2024 ALP [Catalytic activity/Vol] 95 U/L 45-117 [facility] Serum or plasma calcium paty urement (mass/volume)Ordered By: Namrata Braden on 04-02-2024 Calcium [Mass/Vol] 9.5 mg/dL 8.5-10.1 [facility] Serum or plasma creatinine m easurement (mass/volume)Ordered By: Namrata Braden on 04-02-2024 Creatinine [Mass/Vol] 1.39 mg/dL High 0.55-1.02 [facility] Comment on above: The validity of the calculated GFR & GFRAA in patients over 70 years has not been determined. Clinical correlation is essential. Serum or plasma urea nitroge n measurement (mass/volume)Ordered By: Namrata Braden on 04-02-2024 Urea nitrogen [Mass/Vol] 16 mg/dL 7-18 [facility] Sodium levelOrdered By: Jose Braden on 04-02-2024 Sodium [Moles/Vol] 141 mmol/L 136-145 [facility] Total proteinOrdered By: Tom Braden on 04-02-2024 Protein [Mass/Vol] 6.9 g/dL 6.4-8.2 [facility] White blood cell (WBC) count Ordered By: Namrata Braden on 04-02-2024 WBC (Bld) [#/Vol] 6.3 10*3/uL 4.4-11.0 [facility] Liver Profileon 03-06-2024 Albumin [Mass/Vol] 3.7 g/dL Normal 3.2-5.0 [facility] Comment on above: Performed By: #### L 500.3400 #### [facility] [address] [place], [address] ALK P 93 U/L Normal 45-117 [facility] Comment on above: Performed By: #### L 500.3400 #### [facility] [address] [place], [address] ALT [Catalytic activity/Vol] 39 U/L Normal 13-56 [facility] Comment on above: Performed By: #### L 500.3400 #### [facility] [address] [place], [address] AST [Catalytic activity/Vol] 20 U/L Normal 15-37 [facility] Comment on above: Performed By: #### L 500.3400 #### [facility] [address] [place], [address] Bilirubin [Mass/Vol] 0.40 mg/dL Normal 0.20-1.00 [facility] Comment on above: Result Comment: For patients on eltrombopag therapy, use of Dimension [place] TBIL is not recommended. Performed By: #### L 500.3400 #### [facility] [address] [place], [address] Bilirubin.direct [Mass/Vol] 0.10 mg/dL Normal 0.00-0.30 [facility] Comment on above: Performed By: #### L 500.3400 #### [facility] [address] [place], [address] Globulin (S) [Mass/Vol] 3.2 g/dL Normal 2.2-4.2 [facility] Comment on above: Performed By: #### L 500.3400 #### [facility] [address] [place], [address] T PROT 6.9 g/dL Normal 6.4-8.2 [facility] Comment on above: Performed By: #### L 500.3400 #### [facility] [address] [place], [place], [address] Internal Medicine Office Vis iton 02-17-2024 Internal Medicine Office Visit [facility] [address] [place] [address] [place] [address] OFFICE VISIT Date of Service: 02/17/24 MR#: [id number] Acct: [id number] Name: ISI GENAO Rep #: [id number] : 1965 Provider: Dr. Nadine vick MD Age/Sex: 58/F [place] [facility] [place]: Signed Intake Vital Signs 11/09/23 10:54 [...] 3 M FU Chief Complaint: 3m f/u [employer]ight[employer] Required: No Accompanied by: Self Is patient [...] mv-min-vit C-ascorb tab PO 11/03/22 02/17/24 History Qm-Rqk-[id number]-herb #[id number] 333 mg-1.7 mg chewable tablet (Airborne [...] Light sens (more content not included)... Normal [facility] No Panel InformationOrdered By: Aaron Matthews on 06-13-2023 Urine Microalbumin/Creatinine Ratio 23.4 mg/g CRE <30 [facility] Thin prep Papanicolaou smear with manual screeningOrdered By: Aaron Matthews on 06-13-2023 Protein (U) [Mass/Vol] 10.9 mg/dL 0.0-11.8 [facility] Thin prep Papanicolaou smear with manual screening 27.2 mg/L NO RANGE EST. [facility] Urine creatinine measurement (mass/volume)Ordered By: Aaron Matthews on 06-13-2023 Creatinine (U) [Mass/Vol] 116.00 mg/dL NO RANGE EST. [facility] Urine protein/creatinine mas s ratioOrdered By: Aaron Matthews on 06-13-2023 Protein/Creatinine (U) [Mass ratio] 94 mg/g CRE 0-200 [facility] Basophil percentageOrdered B y: Aaron Matthews on 06-10-2023 Basophil percentage 3.2 mg/dL 2.5-4.9 [facility] Chloride [Moles/Vol] 110 mmol/L 98-107 [facility] Glucose [Mass/Vol] 75 mg/dL 74-106 [facility] Hemoglobin (Bld) [Mass/Vol] 13.6 g/dL 12.0-15.0 [facility] Potassium [Moles/Vol] 4.1 mmol/L 3.5-5.1 [facility] Sodium [Moles/Vol] 141 mmol/L 136-145 [facility] WBC (Bld) [#/Vol] 10.2 10*3/uL 4.4-11.0 [facility] Determination of erythrocyte mean corpuscular volume (MCV)Ordered By: Aaorn Matthews on 06-10-2023 MCV (RBC) [Entitic vol] 88.5 fL 81-99 [facility] Erythrocyte distribution wid th ratioOrdered By: Aaron Cassie on 06-10-2023 Erythrocyte distribution width (RBC) [Ratio] 13.2 % 11.6-14.6 [facility] Erythrocyte distribution wid th standard deviationOrdered By: [facility] Cassie on 06-10-2023 Erythrocyte distribution width (RBC) [Entitic vol] 42.9 fL 35.1-43.9 [facility] Hematocrit Auto (Bld) [Volum e fraction]Ordered By: [facility] Cassie on 06-10-2023 Hematocrit (Bld) [Volume fraction] 43.1 % 37-47 [facility] Laboratory - Chemistry and C hemistry - challengeOrdered By: [facility] Cassie on 06-10-2023 CO2 [Moles/Vol] 26.0 mmol/L 21.0-32.0 [facility] Urea nitrogen/Creatinine [Mass ratio] 21.7 mg/mg 10-20 [facility] Laboratory - Hematology and Cell countsOrdered By: Aaron Matthews on 06-10-2023 MCH (RBC) [Entitic mass] 27.9 pg 27.0-32.0 [facility] MCHC (RBC) [Mass/Vol] 31.6 g/dL 32-36 [facility] Platelet mean volume (Bld) [Entitic vol] 9.8 fL 6.2-12.0 [facility] Platelets (Bld) [#/Vol] 271 10*3/uL 150-450 [facility] No Panel InformationOrdered By: Aaron Matthews on 06-10-2023 Estimated GFR (MDRD) Amer 63 mL/min >60 [facility] Comment on above: GFR Calc Estimated GFR (MDRD) Non-Af Amer 52 mL/min >60 [facility] Comment on above: Non- GFR Calc Parathyroid Hormone (Intact) 79.3 pg/mL 18.4-80.1 [facility] Vitamin D 25-Hydroxy 35.4 ng/mL [facility] Comment on above: Vitamin D 25(OH) Sta tus Range Deficiency <20 ng/mL (50nmol/L) Insufficiency 20 - 30 ng/mL (50 - 75 nmol/L) Sufficiency 30 - 100 ng/mL (75 - 250 nmol/L) Toxicity >100 ng/mL (>250 nmol/L) RBC Auto (Bld) [#/Vol]Ordere d By: Aaron Matthews on 06-10-2023 RBC (Bld) [#/Vol] 4.87 10*6/uL 4.2-5.4 [facility] Serum or plasma calcium paty urement (mass/volume)Ordered By: Aaron Matthews on 06-10-2023 Calcium [Mass/Vol] 8.9 mg/dL 8.5-10.1 [facility] Serum or plasma creatinine m easurement (mass/volume)Ordered By: Aaron Matthews on 06-10-2023 Creatinine [Mass/Vol] 1.15 mg/dL 0.55-1.02 [facility] Comment on above: The validity of the calculated GFR & GFRAA in patients over 70 years has not been determined. Clinical correlation is essential. Serum or plasma urea nitroge n measurement (mass/volume)Ordered By: Aaron Matthews on 06-10-2023 Urea nitrogen [Mass/Vol] 25 mg/dL 7-18 [facility] Thin prep Papanicolaou smear with manual screeningOrdered By: Aaron Matthews on 06-10-2023 Thin prep Papanicolaou smear with manual screening 3.6 g/dL 3.2-5.0 [facility] DBT Breast - bilateral scree ningon 06-01-2023 [facility] Laboratory - Hematology and Cell countson 04-07-2023 HbA1c (Bld) [Mass fraction] 5.7 % 4.2-6.3 [facility] Absolute lymphocyte countOrd ered By: Dr. Salamanca on 09-20-2022 Lymphocytes Auto (Unsp spec) [#/Vol] 2.60 10*3/uL 0.83-4.51 [facility] Basophil percentageOrdered B y: Dr. Salamanca on 09-20-2022 Basophil percentage 3.8 mg/dL 2.5-4.9 [facility] Basophils/100 WBC (Bld) 0.9 % 0-1 [facility] Bilirubin [Mass/Vol] 0.40 mg/dL 0.20-1.00 [facility] Comment on above: For patients on eltr ombopag therapy, use of Dimension [place] TBIL is not recommended. Chloride [Moles/Vol] 105 mmol/L 98-107 [facility] Cholesterol [Mass/Vol] 151 mg/dL <200 [facility] Comment on above: <200 mg/dL Desirable 200-240 mg/dL Borderline >240 mg/dL High Risk Eosinophils/100 WBC (Bld) 5.7 % 0-5 [facility] Glucose [Mass/Vol] 126 mg/dL 74-106 [facility] Comment on above: Fasting Glucose resu lt greater than or equal to 126 mg/dL suggests DIABETES MELLITUS per A.D.A. criteria. Neutrophils (Bld) [#/Vol] 5.1 10*3/uL 2.0-7.7 [facility] Neutrophils/100 WBC (Bld) 57.0 % 47-70 [facility] Potassium [Moles/Vol] 4.1 mmol/L 3.5-5.1 [facility] Protein [Mass/Vol] 7.1 g/dL 6.4-8.2 [facility] Sodium [Moles/Vol] 138 mmol/L 136-145 [facility] Triglyceride [Mass/Vol] 127 mg/dL <199 [facility] Comment on above: The drugs N-Acetylcy steine and Metamizole may falsely depress this assay.Serum Triglycerides Reference Interval Normal <150 mg/dL Borderline high 150 - 199 mg/dL High 200 - 499 mg/dL Very High > or = 500 mg/dL WBC (Bld) [#/Vol] 9.0 10*3/uL 4.4-11.0 [facility] Blood erythrocytes count (nu mber/volume)Ordered By: Dr. Salamanca on 09-20-2022 RBC (Bld) [#/Vol] 5.15 10*6/uL 4.2-5.4 [facility] Blood hemoglobin measurement (mass/volume)Ordered By: Dr. Salamanca on 09-20-2022 Hemoglobin (Bld) [Mass/Vol] 14.4 g/dL 12.0-15.0 [facility] Blood lymphocytes/100 leukoc ytesOrdered By: Dr. Salamanca on 09-20-2022 Lymphocytes/100 WBC (Bld) 29.0 % 19-41 [facility] Blood monocytes/100 leukocyt esOrdered By: Dr. Salamanca on 09-20-2022 Monocytes/100 WBC (Bld) 7.0 % 0-10 [facility] Blood platelet mean volumeOr dered By: Dr. Salamanca on 09-20-2022 Platelet mean volume (Bld) [Entitic vol] 9.6 fL 6.2-12.0 [facility] Determination of erythrocyte mean corpuscular volume (MCV)Ordered By: Dr. Salamanca on 09-20-2022 MCV (RBC) [Entitic vol] 88.9 fL 81-99 [facility] Hematocrit Auto (Bld) [Volum e fraction]Ordered By: Dr. Salamanca on 09-20-2022 Hematocrit (Bld) [Volume fraction] 45.8 % 37-47 [facility] Laboratory - Chemistry and C hemistry - challengeOrdered By: Dr. Salamanca on 09-20-2022 ALP [Catalytic activity/Vol] 126 U/L 45-117 [facility] ALT [Catalytic activity/Vol] 39 U/L 13-56 [facility] CO2 [Moles/Vol] 25.0 mmol/L 21.0-32.0 [facility] Globulin (S) [Mass/Vol] 3.6 g/dL 2.2-4.2 [facility] Urea nitrogen/Creatinine [Mass ratio] 16.7 mg/mg 10-20 [facility] Laboratory - Hematology and Cell countsOrdered By: Dr. Salamanca on 09-20-2022 Erythrocyte distribution width (RBC) [Entitic vol] 44.8 fL 35.1-43.9 [facility] Erythrocyte distribution width (RBC) [Ratio] 13.8 % 11.6-14.6 [facility] Immature granulocytes/100 WBC (Bld) 0.400 % 0.0-0.9 [facility] Comment on above: IG% - Immature Granu locytes (promyelocytes, myelocytes and metamyelocytes) > 1% indicates that a LEFT SHIFT is Present. MCH (RBC) [Entitic mass] 28.0 pg 27.0-32.0 [facility] Nucleated RBC/100 WBC (Bld) [Ratio] 0 % 0-5 [facility] MCHC Auto (RBC) [Mass/Vol]Or dered By: Dr. Salamanca on 09-20-2022 MCHC (RBC) [Mass/Vol] 31.4 g/dL 32-36 [facility] No Panel InformationOrdered By: Dr. Salamanca on 09-20-2022 Urine Microalbumin/Creatinine Ratio 32.9 mg/g CRE <30 [facility] Estimated GFR (MDRD) Amer 67 mL/min >60 [facility] Comment on above: GFR Calc Estimated GFR (MDRD) Non-Af Amer 56 mL/min >60 [facility] Comment on above: Non- GFR Calc Platelets bldOrdered By: Dr. Salamanca on 09-20-2022 Platelets (Bld) [#/Vol] 274 10*3/uL 150-450 [facility] Serum or plasma albumin paty urement (mass/volume)Ordered By: Dr. Salamanca on 09-20-2022 Albumin [Mass/Vol] 3.5 g/dL 3.2-5.0 [facility] Serum or plasma albumin/glob ulin mass ratioOrdered By: Dr. Salamanca on 09-20-2022 Albumin/Globulin [Mass ratio] 1.0 {ratio} 0.9-2.4 [facility] Serum or plasma calcium paty urement (mass/volume)Ordered By: Dr. Salamanca on 09-20-2022 Calcium [Mass/Vol] 9.3 mg/dL 8.5-10.1 [facility] Serum or plasma cholesterol in HDL measurement (mass/volume)Ordered By: Dr. Salamanca on 09-20-2022 Cholesterol in HDL [Mass/Vol] 38 mg/dL >40 [facility] Comment on above: The drugs N-Acetylcy steine and Metamizole may falsely depress this assay. Reference Range HDL <40 mg/dL Low HDL Cholesterol HDL >or= 60 mg/dL High HDL Cholesterol Serum or plasma cholesterol in VLDL measurement (mass/volume)Ordered By: Dr. Salamanca on 09-20-2022 Cholesterol in VLDL [Mass/Vol] 25 mg/dL 5-40 [facility] Serum or plasma creatinine m easurement (mass/volume)Ordered By: Dr. Salamanca on 09-20-2022 Creatinine [Mass/Vol] 1.08 mg/dL 0.55-1.02 [facility] Comment on above: The validity of the calculated GFR & GFRAA in patients over 70 years has not been determined. Clinical correlation is essential. Serum or plasma low density lipoprotein (LDL) cholesterol measurement (mass/volume)Ordered By: Dr. Salamanca on 09-20-2022 Cholesterol in LDL [Mass/Vol] 88 mg/dL 0-130 [facility] Serum or plasma urea nitroge n measurement (mass/volume)Ordered By: Dr. Salamanca on 09-20-2022 Urea nitrogen [Mass/Vol] 18 mg/dL 7-18 [facility] Thin prep Papanicolaou smear with manual screeningOrdered By: Dr. Salamanca on 09-20-2022 Thin prep Papanicolaou smear with manual screening 15.9 mg/L NO RANGE EST. [facility] Thin prep Papanicolaou smear with manual screening 23 U/L 15-37 [facility] Thin prep Papanicolaou smear with manual screening 8 5-15 [facility] Urine creatinine measurement (mass/volume)Ordered By: Dr. Salamanca on 09-20-2022 Creatinine (U) [Mass/Vol] 48.40 mg/dL NO RANGE EST. [facility] Urine protein measurement (m ass/volume)Ordered By: Dr. Salamanca on 09-20-2022 Protein (U) [Mass/Vol] mg/dL 0.0-11.8 [facility] Urine protein/creatinine mas s ratioOrdered By: Dr. Salamanca on 09-20-2022 Protein/Creatinine (U) [Mass ratio] 112 mg/g CRE 0-200 [facility] Whole blood hemoglobin A1c/t otal hemoglobin ratio (mass fraction)Ordered By: Dr. Salamanca on 09-20-2022 HbA1c (Bld) [Mass fraction] 5.7 % 3.8-5.6 [facility] Comment on above: Normal < 5.7 % Predi abetic 5.7 - 6.4 % Diabetic >or= 6.5 % Please note range changes. ARMANDO SCREENINGon 05-24-2022 [facility] Absolute lymphocyte counton 04-02-2022 Lymphocytes Auto (Unsp spec) [#/Vol] 2.93 10*3/uL 0.83-4.51 [facility] Work Phone: Basophil percentageon 2021 Basophils/100 WBC (Bld) 0.7 % 0-1 [facility] Work Phone: Eosinophils/100 WBC (Bld) 4.7 % 0-5 [facility] Work Phone: Neutrophils (Bld) [#/Vol] 5.9 10*3/uL 2.0-7.7 [facility] Work Phone: Neutrophils/100 WBC (Bld) 56.8 % 47-70 [facility] Work Phone: WBC (Bld) [#/Vol] 10.3 10*3/uL 4.4-11.0 [facility] Work Phone: Blood erythrocytes count (nu mber/volume)on 04-02-2022 RBC (Bld) [#/Vol] 4.74 10*6/uL 4.2-5.4 [facility] Work Phone: Blood hemoglobin measurement (mass/volume)on 04-02-2022 Hemoglobin (Bld) [Mass/Vol] 13.2 g/dL 12.0-15.0 [facility] Work Phone: Blood lymphocytes/100 leukoc yteson 04-02-2022 Lymphocytes/100 WBC (Bld) 28.4 % 19-41 [facility] Work Phone: Blood monocytes/100 leukocyt eson 04-02-2022 Monocytes/100 WBC (Bld) 8.9 % 0-10 [facility] Work Phone: Blood platelet mean volumeon 04-02-2022 Platelet mean volume (Bld) [Entitic vol] 9.7 fL 6.2-12.0 [facility] Work Phone: Determination of erythrocyte mean corpuscular volume (MCV)on 04-02-2022 MCV (RBC) [Entitic vol] 89.5 fL 81-99 [facility] Work Phone: Hematocrit Auto (Bld) [Volum e fraction]on 04-02-2022 Hematocrit (Bld) [Volume fraction] 42.4 % 37-47 [facility] Work Phone: Laboratory - Hematology and Cell countson 04-02-2022 Erythrocyte distribution width (RBC) [Entitic vol] 42.4 fL 35.1-43.9 [facility] Work Phone: Erythrocyte distribution width (RBC) [Ratio] 13.1 % 11.6-14.6 [facility] Work Phone: Immature granulocytes/100 WBC (Bld) 0.500 % 0.0-0.9 [facility] Work Phone: Comment on above: IG% - Immature Granu locytes (promyelocytes, myelocytes and metamyelocytes) > 1% indicates that a LEFT SHIFT is Present. MCH (RBC) [Entitic mass] 27.8 pg 27.0-32.0 [facility] Work Phone: Nucleated RBC/100 WBC (Bld) [Ratio] 0 % 0-5 [facility] Work Phone: Laboratory - Microbiology an d Antimicrobial susceptibilityon 04-02-2022 SARS-CoV-2 (COVID-19) RNA SIMOAN+probe Ql (Unsp spec) Not detected Not Detect [facility] Work Phone: Comment on above: Normal Reference Ran ge: Not DetectedMethod:(RT-PCR) real-time reverse transcriptase PCRLuminex All Protector Agency Instrument*The Food and Drug Administration (FDA) has [...] 04-02-2022 MCHC (RBC) [Mass/Vol] 31.1 g/dL 32-36 [facility] Work Phone: Platelets bldon 04-02-2022 Platelets (Bld) [#/Vol] 244 10*3/uL 150-450 [facility] Work Phone: Absolute lymphocyte counton 03-24-2022 Lymphocytes Auto (Unsp spec) [#/Vol] 2.64 10*3/uL 0.83-4.51 [facility] Work Phone: Basophil percentageon 2021 Basophils/100 WBC (Bld) 0.7 % 0-1 [facility] Work Phone: Bilirubin [Mass/Vol] 0.40 mg/dL 0.20-1.00 [facility] Work Phone: Comment on above: For patients on eltr ombopag therapy, use of Dimension [place] TBIL is not recommended. Chloride [Moles/Vol] 107 mmol/L 98-107 [facility] Work Phone: Eosinophils/100 WBC (Bld) 3.7 % 0-5 [facility] Work Phone: Glucose [Mass/Vol] 83 mg/dL 74-106 [facility] Work Phone: Neutrophils (Bld) [#/Vol] 4.8 10*3/uL 2.0-7.7 [facility] Work Phone: Neutrophils/100 WBC (Bld) 55.5 % 47-70 [facility] Work Phone: Potassium [Moles/Vol] 4.4 mmol/L 3.5-5.1 [facility] Work Phone: Protein [Mass/Vol] 7.1 g/dL 6.4-8.2 [facility] Work Phone: Sodium [Moles/Vol] 138 mmol/L 136-145 [facility] Work Phone: WBC (Bld) [#/Vol] 8.6 10*3/uL 4.4-11.0 [facility] Work Phone: Blood erythrocytes count (nu mber/volume)on 03-24-2022 RBC (Bld) [#/Vol] 4.83 10*6/uL 4.2-5.4 [facility] Work Phone: Blood hemoglobin measurement (mass/volume)on 03-24-2022 Hemoglobin (Bld) [Mass/Vol] 13.6 g/dL 12.0-15.0 [facility] Work Phone: Blood lymphocytes/100 leukoc yteson 03-24-2022 Lymphocytes/100 WBC (Bld) 30.7 % 19-41 [facility] Work Phone: Blood monocytes/100 leukocyt eson 03-24-2022 Monocytes/100 WBC (Bld) 9.2 % 0-10 [facility] Work Phone: Blood platelet mean volumeon 03-24-2022 Platelet mean volume (Bld) [Entitic vol] 9.6 fL 6.2-12.0 [facility] Work Phone: Determination of erythrocyte mean corpuscular volume (MCV)on 03-24-2022 MCV (RBC) [Entitic vol] 89.2 fL 81-99 [facility] Work Phone: Hematocrit Auto (Bld) [Volum e fraction]on 03-24-2022 Hematocrit (Bld) [Volume fraction] 43.1 % 37-47 [facility] Work Phone: Laboratory - Chemistry and C hemistry - challengeon 03-24-2022 ALP [Catalytic activity/Vol] 99 U/L 45-117 [facility] Work Phone: ALT [Catalytic activity/Vol] 33 U/L 13-56 [facility] Work Phone: CO2 [Moles/Vol] 25.0 mmol/L 21.0-32.0 [facility] Work Phone: Globulin (S) [Mass/Vol] 3.6 g/dL 2.2-4.2 [facility] Work Phone: Urea nitrogen/Creatinine [Mass ratio] 23.3 mg/mg 10-20 [facility] Work Phone: Laboratory - Hematology and Cell countson 03-24-2022 Erythrocyte distribution width (RBC) [Entitic vol] 41.3 fL 35.1-43.9 [facility] Work Phone: Erythrocyte distribution width (RBC) [Ratio] 12.7 % 11.6-14.6 [facility] Work Phone: Immature granulocytes/100 WBC (Bld) 0.200 % 0.0-0.9 [facility] Work Phone: Comment on above: IG% - Immature Granu locytes (promyelocytes, myelocytes and metamyelocytes) > 1% indicates that a LEFT SHIFT is Present. MCH (RBC) [Entitic mass] 28.2 pg 27.0-32.0 [facility] Work Phone: Nucleated RBC/100 WBC (Bld) [Ratio] 0 % 0-5 [facility] Work Phone: MCHC Auto (RBC) [Mass/Vol]on 03-24-2022 MCHC (RBC) [Mass/Vol] 31.6 g/dL 32-36 [facility] Work Phone: No Panel Informationon 03-24 Estimated GFR (MDRD) Amer 79 mL/min >60 [facility] Work Phone: Comment on above: GFR Calc Estimated GFR (MDRD) Non-Af Amer 65 mL/min >60 [facility] Work Phone: Comment on above: Non- GFR Calc Platelets bldon 03-24-2022 Platelets (Bld) [#/Vol] 337 10*3/uL 150-450 [facility] Work Phone: Serum or plasma albumin paty urement (mass/volume)on 03-24-2022 Albumin [Mass/Vol] 3.5 g/dL 3.2-5.0 [facility] Work Phone: Serum or plasma albumin/glob ulin mass ratioon 03-24-2022 Albumin/Globulin [Mass ratio] 1.0 {ratio} 0.9-2.4 [facility] Work Phone: Serum or plasma calcium paty urement (mass/volume)on 03-24-2022 Calcium [Mass/Vol] 9.1 mg/dL 8.5-10.1 [facility] Work Phone: Serum or plasma creatinine m easurement (mass/volume)on 03-24-2022 Creatinine [Mass/Vol] 0.94 mg/dL 0.55-1.02 [facility] Work Phone: Comment on above: The validity of the calculated GFR & GFRAA in patients over 70 years has not been determined. Clinical correlation is essential. Serum or plasma urea nitroge n measurement (mass/volume)on 03-24-2022 Urea nitrogen [Mass/Vol] 22 mg/dL 7-18 [facility] Work Phone: Thin prep Papanicolaou smear with manual screeningon 03-24-2022 Thin prep Papanicolaou smear with manual screening 14 U/L 15-37 [facility] Work Phone: Thin prep Papanicolaou smear with manual screening 6 5-15 [facility] Work Phone: Basophil percentageon 2021 Bilirubin [Mass/Vol] 0.60 mg/dL 0.20-1.00 [facility] Work Phone: Comment on above: For patients on eltr ombopag therapy, use of Dimension [place] TBIL is not recommended. Chloride [Moles/Vol] 104 mmol/L 98-107 [facility] Work Phone: Glucose [Mass/Vol] 105 mg/dL 74-106 [facility] Work Phone: Comment on above: Fasting Glucose resu lt from 100 to 125 mg/dL suggests IMPAIRED HOMEOSTASIS per A.D.A. criteria. Potassium [Moles/Vol] 4.1 mmol/L 3.5-5.1 [facility] Work Phone: Protein [Mass/Vol] 7.4 g/dL 6.4-8.2 [facility] Work Phone: Sodium [Moles/Vol] 139 mmol/L 136-145 [facility] Work Phone: Laboratory - Chemistry and C hemistry - challengeon 10-21-2021 ALP [Catalytic activity/Vol] 123 U/L 45-117 [facility] Work Phone: ALT [Catalytic activity/Vol] 30 U/L 13-56 [facility] Work Phone: CO2 [Moles/Vol] 27.0 mmol/L 21.0-32.0 [facility] Work Phone: Globulin (S) [Mass/Vol] 3.5 g/dL 2.2-4.2 [facility] Work Phone: Urea nitrogen/Creatinine [Mass ratio] 20.3 mg/mg 10- [facility] Work Phone: No Panel Informationon 10-21 Estimated GFR (MDRD) Amer 61 mL/min >60 [facility] Work Phone: Comment on above: GFR Calc Estimated GFR (MDRD) Non-Af Amer 50 mL/min >60 [facility] Work Phone: Comment on above: Non- GFR Calc Serum or plasma albumin paty urement (mass/volume)on 10-21-2021 Albumin [Mass/Vol] 3.9 g/dL 3.2-5.0 [facility] Work Phone: Serum or plasma albumin/glob ulin mass ratioon 10-21-2021 Albumin/Globulin [Mass ratio] 1.1 {ratio} 0.9-2.4 [facility] Work Phone: Serum or plasma calcium paty urement (mass/volume)on 10-21-2021 Calcium [Mass/Vol] 9.5 mg/dL 8.5-10.1 [facility] Work Phone: Serum or plasma creatinine m easurement (mass/volume)on 10-21-2021 Creatinine [Mass/Vol] 1.18 mg/dL 0.55-1.02 [facility] Work Phone: Comment on above: The validity of the calculated GFR & GFRAA in patients over 70 years has not been determined. Clinical correlation is essential. Serum or plasma urea nitroge n measurement (mass/volume)on 10-21-2021 Urea nitrogen [Mass/Vol] 24 mg/dL 7-18 [facility] Work Phone: Thin prep Papanicolaou smear with manual screeningon 10-21-2021 Thin prep Papanicolaou smear with manual screening 18 U/L 15-37 [facility] Work Phone: Thin prep Papanicolaou smear with manual screening 8 5-15 [facility] Work Phone: Basophil percentageon 2021 Cholesterol [Mass/Vol] 147 mg/dL <200 [facility] Work Phone: Comment on above: <200 mg/dL Desirable 200-240 mg/dL Borderline >240 mg/dL High Risk Triglyceride [Mass/Vol] 115 mg/dL <199 [facility] Work Phone: Comment on above: The drugs N-Acetylcy steine and Metamizole may falsely depress this assay.Serum Triglycerides Reference Interval Normal <150 mg/dL Borderline high 150 - 199 mg/dL High 200 - 499 mg/dL Very High > or = 500 mg/dL Serum or plasma cholesterol in HDL measurement (mass/volume)on 09-22-2021 Cholesterol in HDL [Mass/Vol] 42 mg/dL >40 [facility] Work Phone: Comment on above: The drugs N-Acetylcy steine and Metamizole may falsely depress this assay. Reference Range HDL <40 mg/dL Low HDL Cholesterol HDL >or= 60 mg/dL High HDL Cholesterol Serum or plasma cholesterol in VLDL measurement (mass/volume)on 09-22-2021 Cholesterol in VLDL [Mass/Vol] 23 mg/dL 5-40 [facility] Work Phone: Serum or plasma complement C 3 measurement (mass/volume)on 09-22-2021 Complement C3 [Mass/Vol] 167 mg/dL 82-167 [facility] Work Phone: Comment on above: Performed at: [address] [id number] Director: Ismael Keith PhD, Phone: [phone] Serum or plasma complement C 4 measurement (mass/volume)on 09-22-2021 Complement C4 [Mass/Vol] 50 mg/dL 12-38 [facility] Work Phone: Serum or plasma low density lipoprotein (LDL) cholesterol measurement (mass/volume)on 09-22-2021 Cholesterol in LDL [Mass/Vol] 82 mg/dL 0-130 [facility] Work Phone: Office Visit: Post Op Colono scopyon 02-28-2017 Documentation of current medications (procedure) Done Invalid Interpretation Code [facility] Work Phone: Tobacco smoking status NHIS Never Invalid Interpretation Code [facility] Work Phone: Tobacco use CPHS Never smoker Invalid Interpretation Code [facility] Work Phone: Microbiology: Ova and Parasi shahram 8623on 02-21-2017 OP . Invalid Interpretation Code [facility] Work Phone: Office Visit: Post Op Colono scopyon 02-18-2017 Colonoscopy (procedure) Abnormal Invalid Interpretation Code [facility] Work Phone: CBC WITH AUTO DIFFon 01-15- 017 Basophils Auto #/vol (Bld) 0.1 10 3/uL Normal 0.0-0.2 [facility] Comment on above: Performed By: #### C MP, CBC ####Main Lab - [id number] [place], [place] [address] Basophils/100 WBC Auto (Bld) 0.7 % Normal 0.0-1.0 [facility] Comment on above: Performed By: #### C MP, CBC ####Main Lab - [id number] [place], [place] [address] Eosinophils 0.3 10 3/uL Normal 0.0-0.7 [facility] Comment on above: Performed By: #### C MP, CBC ####Main Lab - [id number] [place], [place] [address] Eosinophils/100 leukocytes 3.4 % Normal 0.0-5.0 [facility] Comment on above: Performed By: #### C MP, CBC ####Main Lab - [id number] [place], [place] [address] Erythrocyte distribution width Auto Ratio (RBC) 12.8 % Normal 11.5-14.0 [facility] Comment on above: Performed By: #### C MP, CBC ####Main Lab - [id number] [place] [address] Erythrocytes (RBC) 5.32 x10 6/uL High 3.89-5.30 [facility] Comment on above: Performed By: #### C MP, CBC ####Main Lab - [id number] [place] [address] Hematocrit (HCT) 46.4 % High 34.8-45.0 [facility] Comment on above: Performed By: #### C MP, CBC ####Main Lab - [id number] [place] [address] Hemoglobin mass conc (Bld) 16.1 g/dL High 11.6-14.9 [facility] Comment on above: Performed By: #### C MP, CBC ####Main Lab - [id number] [place] [address] Lymphocytes 1.6 10 3/uL Normal 1.0-3.5 [facility] Comment on above: Performed By: #### C MP, CBC ####Main Lab - [id number] [place] [address] Lymphocytes/100 leukocytes 15.4 % Low 24.0-44.0 [facility] Comment on above: Performed By: #### C MP, CBC ####Main Lab - [id number] [place] [address] MCH 30.2 pg Normal 27.0-31.0 [facility] Comment on above: Performed By: #### C MP, CBC ####Main Lab - [id number] [place] [address] MCHC mass conc (RBC) 34.6 g/dL Normal 32.0-36.0 [facility] Comment on above: Performed By: #### C MP, CBC ####Main Lab - [id number] [place] [address] MCV 87.3 fL Normal 78.0-100.0 [facility] Comment on above: Performed By: #### C MP, CBC ####Main Lab - [id number] [place] [address] Monocytes 0.8 10 3/uL Normal 0.2-0.8 [facility] Comment on above: Performed By: #### C MP, CBC ####Main Lab - [id number] [place], [place] [address] Monocytes/100 leukocytes 7.5 % Normal 1.7-9.3 [facility] Comment on above: Performed By: #### C MP, CBC ####Main Lab - [id number] [place], [place] [address] Neutrophils 7.4 10 3/uL High 1.5-6.7 [facility] Comment on above: Performed By: #### C MP, CBC ####Main Lab - [id number] [place], [place] [address] Platelet mean volume (PMV) 7.9 fL Normal 6.0-9.5 [facility] Comment on above: Performed By: #### C MP, CBC ####Main Lab - [id number] [place] [id number] Platelets 253 10 3/uL Normal 150-450 [facility] Comment on above: Performed By: #### C MP, CBC ####Main Lab - [id number] [place], [place] [address] Segmented Neutrophils/100 leukocytes 73.0 % High 36.0-66.0 [facility] Comment on above: Performed By: #### C MP, CBC ####Main Lab - [id number] [place] [id number] WBC (Leukocytes) 10.1 10 3/uL Normal 4.0-10.5 [facility] Comment on above: Performed By: #### C MP, CBC ####Main Lab - [id number] [place], [place] [address] COMPREHENSIVE METABOLIC PANE Ze 01-15-2017 Albumin 3.6 g/dL Low 3.9-5.0 [facility] Comment on above: Performed By: #### C MP ####Main Lab - [id number] [place] [id number] Albumin/Globulin Ratio 1.3 {ratio} Normal 1.1-1.8 [facility] Comment on above: Performed By: #### C MP ####Main Lab - [address] [address] Alkaline phosphatase (ALP) 56 U/L Normal 43-122 [facility] Comment on above: Performed By: #### C MP ####Main Lab - [address] [address] ALT/SGPT 17 U/L Normal 7-56 [facility] Comment on above: Performed By: #### C MP ####Main Lab - [id number] [place], [place] [address] Anion gap 14 mmol/L Normal 9-18 [facility] Comment on above: Performed By: #### C MP ####Main Lab - [id number] [place] [id number] AST/SGOT 20 U/L Normal 8-39 [facility] Comment on above: Result Comment: Spec imen Slightly Hemolyzed. Performed By: #### C MP ####Main Lab - [id number] [place], [place] [address] Bilirubin (total) 0.5 mg/dL Normal 0.2-1.3 [facility] Comment on above: Performed By: #### C MP ####Main Lab - [address] [address] BUN (urea nitrogen) 13 mg/dL Normal 7-21 [facility] Comment on above: Performed By: #### C MP ####Main Lab - [place] [address] BUN/Creatinine Ratio 14.9 Ratio Normal 5.0-42.0 [facility] Comment on above: Performed By: #### C MP ####Main Lab - [id number] [place] [address] Calcium 8.9 mg/dL Normal 8.4-10.2 [facility] Comment on above: Performed By: #### C MP ####Main Lab - [address] [address] Chloride 110 mmol/L High 98-107 [facility] Comment on above: Performed By: #### C MP ####Main Lab - [id number] [place], [place] [address] CO2 21 mmol/L Low 22-31 [facility] Comment on above: Performed By: #### C MP ####Main Lab - [id number] [place] [address] Creatinine 0.87 mg/dL Normal 0.80-1.30 [facility] Comment on above: Performed By: #### C MP ####Main Lab - [id number] [place], [place] [address] eGFR (non-black) mL/min/{1.73_m2} Normal [facility] Comment on above: Performed By: #### C MP ####Main Lab - [id number] [place] [address] Globulin 2.8 g/dL Normal [facility] Comment on above: Performed By: #### C MP ####Main Lab - [id number] [place] [address] Glucose mass conc 79 mg/dL Normal 70-99 [facility] Comment on above: Result Comment: The glucose range is based on recommendations from theMoh[facility] Psychiatric Centeran Diabetes Association for fasting blood glucoserange. Performed By: #### C MP ####Main Lab - [id number] [place] [address] Potassium molar conc 4.4 mmol/L Normal 3.6-5.0 [facility] Comment on above: Result Comment: Spec imen Slightly Hemolyzed. Performed By: #### C MP ####Main Lab - [id number] [place] [address] Protein 6.4 g/dL Normal 6.3-8.2 [facility] Comment on above: Performed By: #### C MP ####Main Lab - [id number] [place] [address] Sodium 141 mmol/L Normal 137-145 [facility] Comment on above: Performed By: #### C MP ####Main Lab - [id number] [place] [address] Age 51 Years Normal [facility] Comment on above: Performed By: #### C MP ####Main Lab - [id number] [place] [address] Age 51 Years Normal [facility] Comment on above: Result Comment: Spec imen was hemolyzed. Performed By: #### C MP, CBC ####Main Lab - [id number] [place] [address] CT CERVICAL SPINE W/O CONTRA Jamie 01-15-2017 CT CERVICAL SPINE W/O CONTRAST [facility] [address] [place] [address] Diagnostic Imaging Report : [id number] Signed Name: ISI GENAO MRUN: [id number] : 1965 Loc: ED Age / Sex: 51 / F ADM Status: REG ER ADM Date: 01/15/17 Room/Bed: Ordering Physician: SUSHILA Roberson DNP, Christoph er Procedure: CT CERVICAL SPINE W/O CONTRAST Order Number(s): [id number] Ordered Date: 01/15/17 Ordered Time: 924 REASON [...] 01/15/17 1126 Transcribed Date/Time: 01/15/17 1122 Normal [facility] XR CHEST, ONE VIEWon 017 XR CHEST, ONE VIEW [facility] [address] [place] [address] Diagnostic Imaging Report : [id number] Signed Name: ISI GENAO MRUN: [id number] : 1965 Loc: ED Age / Sex: 51 / F ADM Status: REG ER ADM Date: 01/15/17 Room/Bed: Ordering Physician: SUSHILA Roberson DNP, Christoph er Procedure: XR CHEST, ONE VIEW Order Number(s): [id number] Ordered Date: 01/15/17 Ordered Time: 928 # [...] Date/Time: 01/15/17 1243 Transcribed Date/Time: 01/15/17 1239 [facility] XR LUMBAR SPINE, AP/LATERAL [facility] [address] [place] [address] Diagnostic Imaging Report : [id number] Signed [facility]: [id number] MRUN: [id number] : 1965 Loc: ED Age / Sex: 51 / F ADM Status: REG ER ADM Date: 01/15/17 Room/Bed: Ordering Physician: SUSHILA Roberson DNP, Christoph er Procedure: XR LUMBAR SPINE, AP/LATERAL Order Number(s): [id number] Ordered Date: 01/15/17 Ordered Time: 924 REASON [...] 01/15/17 1247 Transcribed Date/Time: 01/15/17 1243 Normal [facility] Office Visit: Post Op Kathi rivas 08-03-2015 General categories [Interpretation] of Cervical or vaginal smear or scraping by Cyto stain Normal Invalid Interpretation Code [facility] Work Phone: Breast Mammogram screening Normal Bilateral Invalid Interpretation Code [facility] Work Phone: Vital Signs Date Time Vital Sign Value Performing Clinician Faci lity 10-08-2024 11:49-0400 Body temperature 98.7 [degF] Dr. Nadine Salamanca MD Work Phone: [facility] 10-08-2024 11:49-0400 Diastolic blood pressure 60 mm[Hg] Dr. Nadine Salamanca MD Work Phone: [facility] 10-08-2024 11:49-0400 Heart rate 94 /min Dr. Nadine Salamanca MD Work Phone: [facility] 10-08-2024 11:49-0400 Respiratory rate 18 /min Dr. Nadine Salamanca MD Work Phone: [facility] 10-08-2024 11:49-0400 SaO2% (BldA) [Mass fraction] 94 % Dr. Nadine Salamanca MD Work Phone: [facility] 10-08-2024 11:49-0400 Systolic blood pressure 120 mm[Hg] Dr. Nadine Salamanca MD Work Phone: [facility] 07-31-2024 13:36-0400 Body height 165.6 cm Mohini Capitan CUSTOMER RELATIONS REPRESENTATIVE.MENTAL HEALTH CLINICIAN Work Phone: [facility] 07-31-2024 13:36-0400 Body mass index (BMI) [Ratio] 40.36 kg/m2 Mohini Laura CUSTOMER RELATIONS REPRESENTATIVE.MENTAL HEALTH CLINICIAN Work Phone: [facility] 07-31-2024 13:36-0400 Body weight 110.68 kg Mohini Laura CUSTOMER RELATIONS REPRESENTATIVE.MENTAL HEALTH CLINICIAN Work Phone: [facility] 07-31-2024 13:36-0400 Diastolic blood pressure 84 mm[Hg] Mohini Capitan CUSTOMER RELATIONS REPRESENTATIVE.MENTAL HEALTH CLINICIAN Work Phone: [facility] 07-31-2024 13:36-0400 Systolic blood pressure 132 mm[Hg] Mohini Laura CUSTOMER RELATIONS REPRESENTATIVE.MENTAL HEALTH CLINICIAN Work Phone: [facility] 06-11-2024 08:32-0400 Body height 167.[address] Nadine Salamanca MD Work Phone: [facility] 06-11-2024 08:32-0400 Body mass index (BMI) [Ratio] 39.4 kg/m2 Dr. Nadine Salamanca MD Work Phone: [facility] 06-11-2024 08:32-0400 Body temperature 98.4 [degF] Dr. Nadine Salamanca MD Work Phone: [facility] 06-11-2024 08:32-0400 Body weight 110.[address] Nadine Salamanca MD Work Phone: [facility] 06-11-2024 08:32-0400 Diastolic blood pressure 84 mm[Hg] Dr. Nadine Salamanca MD Work Phone: [facility] 06-11-2024 08:32-0400 Heart rate 87 /min Dr. Nadine Salamanca MD Work Phone: [facility] 06-11-2024 08:32-0400 Respiratory rate 18 /min Dr. Nadine Salamanca MD Work Phone: [facility] 06-11-2024 08:32-0400 SaO2% (BldA) [Mass fraction] 94 % Dr. Nadine Salamanca MD Work Phone: [facility] 06-11-2024 08:32-0400 Systolic blood pressure 142 mm[Hg] Dr. Nadine Salamanca MD Work Phone: [facility] 05-24-2023 15:50-0500 Body height 167.6 cm Mohini Laura CUSTOMER RELATIONS REPRESENTATIVE.MENTAL HEALTH CLINICIAN Work Phone: [facility] 05-24-2023 15:50-0500 Body weight 105.33 kg Mohini Laura CUSTOMER RELATIONS REPRESENTATIVE.MENTAL HEALTH CLINICIAN Work Phone: [facility] 05-24-2023 15:50-0500 Diastolic blood pressure 90 mm[Hg] Mohini Laura CUSTOMER RELATIONS REPRESENTATIVE.MENTAL HEALTH CLINICIAN Work Phone: [facility] 05-24-2023 15:50-0500 Systolic blood pressure 122 mm[Hg] Mohini Laura CUSTOMER RELATIONS REPRESENTATIVE.MENTAL HEALTH CLINICIAN Work Phone: [facility] 04-07-2023 16:30-0500 Body mass index (BMI) [Ratio] 36.9 kg/m2 Dr. Nadine Salamanca Work Phone: [facility] 04-07-2023 16:30-0500 Body temperature 98.2 [degF] Dr. Nadine Salamanca Work Phone: [facility] 04-07-2023 16:30-0500 Body weight 103.[address] Nadine Salamanca Work Phone: [facility] 04-07-2023 16:30-0500 Diastolic blood pressure 72 mm[Hg] Dr. Nadine Salamanca Work Phone: [facility] 04-07-2023 16:30-0500 Heart rate 76 /min Dr. Nadine Salamanca Work Phone: [facility] 04-07-2023 16:30-0500 Respiratory rate 16 /min Dr. Nadine Salamanca Work Phone: [facility] 04-07-2023 16:30-0500 SaO2% (BldA) [Mass fraction] 98 % Dr. Nadine Salamanca Work Phone: [facility] 04-07-2023 16:30-0500 Systolic blood pressure 116 mm[Hg] Dr. Nadine Salamanca Work Phone: [facility] 03-24-2023 08:06-0500 Body mass index (BMI) [Ratio] 36.9 kg/m2 Dr. Nadine Salamanca Work Phone: [facility] 03-24-2023 08:06-0500 Body temperature 98 [degF] Dr. Nadine Salamanca Work Phone: [facility] 03-24-2023 08:06-0500 Body weight 103.[address] Nadine Salamanca Work Phone: [facility] 03-24-2023 08:06-0500 Diastolic blood pressure 90 mm[Hg] Dr. Nadine Salamanca Work Phone: [facility] 03-24-2023 08:06-0500 Heart rate 90 /min Dr. Nadine Salamanca Work Phone: [facility] 03-24-2023 08:06-0500 Respiratory rate 17 /min Dr. Nadine Salamanca Work Phone: [facility] 03-24-2023 08:06-0500 SaO2% (BldA) [Mass fraction] 98 % Dr. Nadine Salamanca Work Phone: [facility] 03-24-2023 08:06-0500 Systolic blood pressure 146 mm[Hg] Dr. Nadine Salamanca Work Phone: [facility] 03-10-2023 15:23-0500 Body temperature 98.6 [degF] Dr. Nadine Salamanca Work Phone: [facility] 03-10-2023 15:23-0500 Diastolic blood pressure 85 mm[Hg] Dr. Nadine Salamanca Work Phone: [facility] 03-10-2023 15:23-0500 Heart rate 93 /min Dr. Nadine Salamanca Work Phone: [facility] 03-10-2023 15:23-0500 Respiratory rate 12 /min Dr. Nadine Salamanca Work Phone: [facility] 03-10-2023 15:23-0500 SaO2% (BldA) [Mass fraction] 95 % Dr. Nadine Salamanca Work Phone: [facility] 03-10-2023 15:23-0500 Systolic blood pressure 138 mm[Hg] Dr. Nadine Salamanca Work Phone: [facility] 07-07-2022 08:33-0400 Body height 167.[address] Nadine Salamanca Work Phone: [facility] 07-07-2022 08:33-0400 Body mass index (BMI) [Ratio] 36.6 kg/m2 Dr. Nadine Salamanca Work Phone: [facility] 07-07-2022 08:33-0400 Body temperature 98 [degF] Dr. Nadine Salamanca Work Phone: [facility] 07-07-2022 08:33-0400 Body weight 102.[address] Nadine Salamanca Work Phone: [facility] 07-07-2022 08:33-0400 Diastolic blood pressure 82 mm[Hg] Dr. Nadine Salamanca Work Phone: [facility] 07-07-2022 08:33-0400 Heart rate 91 /min Dr. Nadine Salamanca Work Phone: [facility] 07-07-2022 08:33-0400 Respiratory rate 16 /min Dr. Nadine Salamanca Work Phone: [facility] 07-07-2022 08:33-0400 SaO2% (BldA) [Mass fraction] 95 % Dr. Nadine Salamanca Work Phone: [facility] 07-07-2022 08:33-0400 Systolic blood pressure 120 mm[Hg] Dr. Nadine Salamanca Work Phone: [facility] 05-24-2022 08:25-0500 Body height 166.4 cm Rosemary Metzger MD Work Phone: [facility] 05-24-2022 08:25-0500 Body weight 103.42 kg Rosemary Metzger MD Work Phone: [facility] 05-24-2022 08:25-0500 Diastolic blood pressure 86 mm[Hg] Rosemary Metzger MD Work Phone: [facility] 05-24-2022 08:25-0500 Systolic blood pressure 144 mm[Hg] Rosemary Metzger MD Work Phone: [facility] 04-02-2022 13:25-0500 Body height 167.[address] Nadine Salamanca Work Phone: [facility] Work Phone: 04-02-2022 13:25-0500 Body mass index (BMI) [Ratio] 35.5 kg/m2 Dr. Nadine Salamanca Work Phone: [facility] Work Phone: 04-02-2022 13:25-0500 Body temperature 99 [degF] Dr. Nadine Salamanca Work Phone: [facility] Work Phone: 04-02-2022 13:25-0500 Body weight 99.[address] Nadine Salamanca Work Phone: [facility] Work Phone: 04-02-2022 13:25-0500 Diastolic blood pressure 90 mm[Hg] Dr. Nadine Salamanca Work Phone: [facility] Work Phone: 04-02-2022 13:25-0500 Heart rate 85 /min Dr. Nadine Salamanca Work Phone: [facility] Work Phone: 04-02-2022 13:25-0500 Respiratory rate 16 /min Dr. Nadine Salamanca Work Phone: [facility] Work Phone: 04-02-2022 13:25-0500 SaO2% (BldA) [Mass fraction] 97 % Dr. Nadine Salamanca Work Phone: [facility] Work Phone: 04-02-2022 13:25-0500 Systolic blood pressure 150 mm[Hg] Dr. Nadine Salamanca Work Phone: [facility] Work Phone: 03-25-2022 08:06-0500 Body mass index (BMI) [Ratio] 35.4 kg/m2 Dr. Nadine Salamanca Work Phone: [facility] Work Phone: 03-25-2022 08:06-0500 Body temperature 98.6 [degF] Dr. Nadine Salamanca Work Phone: [facility] Work Phone: 03-25-2022 08:06-0500 Body weight 99.[address] Nadine Salamanac Work Phone: [facility] Work Phone: 03-25-2022 08:06-0500 Diastolic blood pressure 70 mm[Hg] Dr. Nadine Salamanca Work Phone: [facility] Work Phone: 03-25-2022 08:06-0500 Heart rate 82 /min Dr. Nadine Salamanca Work Phone: [facility] Work Phone: 03-25-2022 08:06-0500 Respiratory rate 16 /min Dr. Nadine Salamanca Work Phone: [facility] Work Phone: 03-25-2022 08:06-0500 SaO2% (BldA) [Mass fraction] 96 % Dr. Nadine Salamanca Work Phone: [facility] Work Phone: 03-25-2022 08:06-0500 Systolic blood pressure 130 mm[Hg] Dr. Nadine Salamanca Work Phone: [facility] Work Phone: 03-24-2022 09:00-0500 Body temperature 97 [degF] Dr. Nadine Salamanca Work Phone: [facility] Work Phone: 03-24-2022 09:00-0500 Body weight 98.[address] Nadine Salamanca Work Phone: [facility] Work Phone: 03-24-2022 09:00-0500 Diastolic blood pressure 88 mm[Hg] Dr. Nadine Salamanca Work Phone: [facility] Work Phone: 03-24-2022 09:00-0500 Heart rate 83 /min Dr. Nadine Salamanca Work Phone: [facility] Work Phone: 03-24-2022 09:00-0500 Respiratory rate 16 /min Dr. Nadine Salamanca Work Phone: [facility] Work Phone: 03-24-2022 09:00-0500 SaO2% (BldA) [Mass fraction] 98 % Dr. Nadine Salamanca Work Phone: [facility] Work Phone: 03-24-2022 09:00-0500 Systolic blood pressure 134 mm[Hg] Dr. Nadine Salamanca Work Phone: [facility] Work Phone: 10-23-2021 09:43-0400 Body height 167.[address] Nadine Salamanca Work Phone: [facility] Work Phone: 10-23-2021 09:43-0400 Body mass index (BMI) [Ratio] 34.7 kg/m2 Dr. Nadine Salamanca Work Phone: [facility] Work Phone: 10-23-2021 09:43-0400 Body temperature 97.2 [degF] Dr. Nadine Salamanca Work Phone: [facility] Work Phone: 10-23-2021 09:43-0400 Body weight 97.[address] Nadine Salamanca Work Phone: [facility] Work Phone: 10-23-2021 09:43-0400 Diastolic blood pressure 80 mm[Hg] Dr. Nadine Salamanca Work Phone: [facility] Work Phone: 10-23-2021 09:43-0400 Heart rate 72 /min Dr. Nadine Salamanca Work Phone: [facility] Work Phone: 10-23-2021 09:43-0400 Respiratory rate 18 /min Dr. Nadine Salamanca Work Phone: [facility] Work Phone: 10-23-2021 09:43-0400 SaO2% (BldA) [Mass fraction] 96 % Dr. Nadine Salamanca Work Phone: [facility] Work Phone: 10-23-2021 09:43-0400 Systolic blood pressure 132 mm[Hg] Dr. Nadine Salamanca Work Phone: [facility] Work Phone: 09-21-2021 09:03-0400 Diastolic blood pressure 86 mm[Hg] Dr. Nadine Salamanca Work Phone: [facility] Work Phone: 09-21-2021 09:03-0400 Systolic blood pressure 146 mm[Hg] Dr. Nadine Salamanca Work Phone: [facility] Work Phone: 09-21-2021 08:15-0400 Body height 167.[address] Nadine Salamanca Work Phone: [facility] Work Phone: 09-21-2021 08:15-0400 Body mass index (BMI) [Ratio] 34.3 kg/m2 Dr. Nadine Salamanca Work Phone: [facility] Work Phone: 09-21-2021 08:15-0400 Body weight 96.[address] Nadine Salamanca Work Phone: [facility] Work Phone: 09-21-2021 08:15-0400 Heart rate 75 /min Dr. Nadine Salamanca Work Phone: [facility] Work Phone: 09-21-2021 08:15-0400 Respiratory rate 16 /min Dr. Nadine Salamanca Work Phone: [facility] Work Phone: 09-21-2021 08:15-0400 SaO2% (BldA) [Mass fraction] 98 % Dr. Nadine Salamanca Work Phone: [facility] Work Phone: 07-29-2021 17:12-0400 Body mass index (BMI) [Ratio] 34.5 kg/m2 Dr. Nadine Salamanca Work Phone: [facility] Work Phone: 07-29-2021 17:12-0400 Body temperature 97 [degF] Dr. Nadine Salamanca Work Phone: [facility] Work Phone: 07-29-2021 17:12-0400 Body weight 97.[address] Nadine Salamanca Work Phone: [facility] Work Phone: 07-29-2021 17:12-0400 Diastolic blood pressure 100 mm[Hg] Dr. Nadine Salamanca Work Phone: [facility] Work Phone: 07-29-2021 17:12-0400 Heart rate 81 /min Dr. Nadine Salamanca Work Phone: [facility] Work Phone: 07-29-2021 17:12-0400 Respiratory rate 16 /min Dr. Nadine Salamanca Work Phone: [facility] Work Phone: 07-29-2021 17:12-0400 SaO2% (BldA) [Mass fraction] 99 % Dr. Nadine Salamanca Work Phone: [facility] Work Phone: 07-29-2021 17:12-0400 Systolic blood pressure 140 mm[Hg] Dr. Nadine Salamanca Work Phone: [facility] Work Phone: 07-29-2021 17:12-0400 Body height 167.[address] Nadine Salamanca Work Phone: [facility] Work Phone: 07-29-2021 17:12-0400 Body mass index (BMI) [Ratio] 34.5 kg/m2 Dr. Nadine Salamanca Work Phone: [facility] Work Phone: 07-29-2021 17:12-0400 Body temperature 97 [degF] Dr. Nadine Salamanca Work Phone: [facility] Work Phone: 07-29-2021 17:12-0400 Body weight 97.[address] Nadine Salamanca Work Phone: [facility] Work Phone: 07-29-2021 17:12-0400 Diastolic blood pressure 100 mm[Hg] Dr. Nadine Salamanca Work Phone: [facility] Work Phone: 07-29-2021 17:12-0400 Heart rate 81 /min Dr. Nadine Salamanca Work Phone: [facility] Work Phone: 07-29-2021 17:12-0400 Respiratory rate 16 /min Dr. Nadine Salamanca Work Phone: [facility] Work Phone: 07-29-2021 17:12-0400 SaO2% (BldA) [Mass fraction] 99 % Dr. Nadine Salamanca Work Phone: [facility] Work Phone: 07-29-2021 17:12-0400 Systolic blood pressure 140 mm[Hg] Dr. Nadine Salamanca Work Phone: [facility] Work Phone: Encounters Encounter Date Encounter Type Care Provider Facility Start: 02-11-2025 ambulatory Jessica Rashid Alfredo Faci lity:[facility] Start: 02-02-2025 ambulatory Namrata Braden Facility :[facility] Start: 01-29-2025 End: 01-29-2025 ambulatory Nadine Salamanca Facility:[facility] Start: 12-04-2024 End: 12-04-[address] Nadine Salamanca MD Work Phone: -Laboratory [facility] Start: 12-04-2024 End: 12-04-[address] Aaron Matthews MD -[facility]atory [facility] Start: 12-04-2024 End: 12-04-2024 ambulatory [facility] Facility:[facility] Start: 11-12-2024 End: 11-12-2024 Discharged [...] -Laboratory [facility] Start: 11-05-2024 End: 11-05-2024 ambulatory [facility] Facility:[facility] Start: 10-15-2024 End: 11-01-[address] Aaron Matthews MD -Laboratory [facility] Start: 10-15-2024 End: 11-01-[address] Nadine Salamanca MD Work Phone: -[facility]atory [facility] Start: 10-08-2024 End: 10-08-2024 Patient encounter procedure Ludivina Yang [facility] -[facility] Work Phone: Start: 10-08-2024 End: 10-08-[address] Nadine Salamanca MD Work Phone: -[facility] Start: 10-08-2024 End: 10-08-2024 ambulatory [facility] Facility:[facility] Start: 09-17-2024 End: 10-01-[address] Aaron Matthews MD -Laboratory [facility] Start: 09-17-2024 End: 10-01-[address] Nadine Salamanca MD Work Phone: -[facility] Start: 08-17-2024 End: 09-01-[address] Aaron Matthews MD -Laboratory [facility] Start: 08-17-2024 End: 09-01-[address] Nadine Salamanca MD Work Phone: [facility] Work Phone: Start: 08-06-2024 End: 10-06-2024 Follow-up encounter Rosemary Metzger MD Work Phone: [facility] Start: 08-03-2024 End: 08-03-[address] Nadine Salamanca MD Work Phone: [facility] Work Phone: Start: 08-03-2024 End: 08-03-[address] Namrata Braden MD -Radiology, [place] Work Phone: Start: 08-02-2024 End: 08-03-[address] Nadine Salamanca MD Work Phone: [facility] Work Phone: Start: 08-02-2024 End: 08-02-[address] Namrata Braden MD -Laboratory, [place] Start: 08-02-2024 End: 08-02-2024 ambulatory Namrata Braden Facility:[facility] Start: 08-01-2024 End: 10-01-2024 Follow-up encounter Farzaneh Neves APRN.MENTAL HEALTH CLINICIAN Work Phone: OB/Gynecology Start: 07-31-2024 End: 07-31-2024 Patient encounter procedure Mohini Sanchez APRN.MENTAL HEALTH CLINICIAN Work Phone: OB/Gynecology Comment on above: Encounter for gyneco logical examination (general) (routine) without abnormal findings (Primary Dx); Encounter for screening for human papillomavirus (HPV); Pap smear for cervical cancer screening; Encounter for screening mammogram for breast cancer; Vaginal atrophy Start: 07-31-2024 End: 07-31-2024 Patient encounter status Mohini Sanchez KATHY Work Phone: [facility] Start: 07-31-2024 Encounter for gynecological examination (general) (routine) without abnormal findings MOHINI SANCHEZ [facility] Start: 07-31-2024 End: 07-31-2024 ambulatory MOHINI SANCHEZ Facility:[facility] Start: 07-31-2024 End: 07-31-2024 Subsequent hospital visit by physician Screen Mammo [facility] Mamm[facility] Comment on above: Breast cancer screen ing by mammogram [Z12.31] Start: 07-23-2024 End: 08-01-[address] Aaron Matthews MD -Laboratory, [place] Start: 07-23-2024 End: 08-01-2024 ambulatory Namrata Asiya Facility:[facility] Start: 06-25-2024 End: 06-25-[address] Nadine Salamanca MD Work Phone: [facility] Work Phone: Start: 06-25-2024 End: 06-25-[address] Aaron Matthews MD -Ultrasound, [facility] Work Phone: Start: 06-25-2024 End: 07-02-[address] Aaron Matthews MD -Laboratory, [place] Start: 06-25-[address] Aaron mendoza MD -Laboratory, [place] Start: 06-25-2024 End: 07-02-[address] Nadine Salamanca MD Work Phone: [facility] Work Phone: Start: 06-25-2024 End: 06-25-2024 ambulatory Aaron Matthews Facility:[facility] Start: 06-11-2024 End: 06-11-[address] Nadine Salamanca MD -[facility] Work Phone: Start: 06-11-2024 End: 06-11-2024 ambulatory Nadine Salamanca [place] Start: 05-29-2024 End: 06-01-2024 ambulatory [facility] Facility:[facility] Start: 05-29-2024 End: 06-01-[address] Aaron Matthews MD -Laboratory, [facility] Start: 04-30-2024 End: 05-04-[address] Aaron Matthews MD -Laboratory, [facility] Start: 04-30-2024 End: 05-04-2024 ambulatory [facility] Facility:[facility] Start: 04-02-2024 End: 04-03-2024 ambulatory [facility] Facility:[facility] Start: 04-02-2024 End: 04-03-[address] Aaron Matthews MD -Laboratory, [place] Start: 02-17-2024 End: 02-17-2024 ambulatory Nadine Salamanca [place] [place]: 06-30-2023 End: 06-30-[address] Nadine Salamanca Work Phone: [facility] Work Phone: Start: 06-30-2023 End: 06-30-[address] Nadine Salamanca Work Phone: [facility], [facility] Work Phone: Start: 06-13-2023 End: 06-13-[address] Nadine Salamanca Work Phone: [facility] Work Phone: Start: 06-13-2023 End: 06-13-[address] Nadine Salamanca Work Phone: [facility]-Laboratory, Specimen Work Phone: Start: 06-10-2023 End: 06-10-[address] Nadine Salamanca Work Phone: [facility] Work Phone: Start: 06-10-2023 End: 06-10-[address] Nadine Salamanca Work Phone: [facility]-Laboratory, [facility] Start: 06-01-2023 End: 06-01-2023 Subsequent hospital visit by physician Screen Mammo [facility] Mamm[facility] Comment on above: Encounter for screen ing mammogram for breast cancer [Z12.31] Start: 05-24-2023 End: 05-24-2023 Patient encounter procedure Mohini Sanchez APRN.MENTAL HEALTH CLINICIAN Work Phone: OB/Gynecology Comment on above: Encounter for gyneco logical examination (general) (routine) without abnormal findings (Primary Dx); Encounter for screening mammogram for breast cancer Start: 05-24-2023 End: 05-24-2023 Patient encounter status Mohini Sanchez APRN.MENTAL HEALTH CLINICIAN Work Phone: [facility] Start: 04-07-2023 End: 04-07-[address] Nadine Salamanca Work Phone: [facility] Work Phone: Start: 03-24-2023 End: 03-24-[address] Nadine Salamanca Work Phone: [facility] Work Phone: Start: 03-10-2023 End: 03-10-[address] Nadine Salamanca Work Phone: [facility] Work Phone: Start: 09-20-2022 End: 09-20-[address] Nadine Salamanca Work Phone: [facility] Work Phone: Start: 09-20-2022 End: 09-20-[address] Nadine Salamanca Work Phone: [facility]-Laboratory, [facility] Start: 07-07-2022 End: 07-07-2022 Encounter for general adult medical examination without abnormal findings Dr. Nadine Salamanca Work Phone: [facility] Start: 07-07-2022 End: 07-07-[address] Nadine Salamanca Work Phone: [facility] Internal Medicine Start: 05-24-2022 End: 05-24-2022 Patient encounter procedure Rosemary Metzger MD Work Phone: OB/Gynecology Comment on above: Encounter for gyneco logical examination (general) (routine) without abnormal findings (Primary Dx); Encounter for screening mammogram for breast cancer Start: 05-24-2022 End: 05-24-2022 Patient encounter status Rosemary Metzger MD Work Phone: OB/Gynecology Start: 05-24-2022 End: 05-24-2022 Subsequent hospital visit by physician Screen Mammo [facility] Mamm[facility] Comment on above: Encounter for screen ing mammogram for malignant neoplasm of breast [Z12.31] Start: 04-02-2022 End: 04-02-[address] Nadine Salamanca Work Phone: [facility] Work Phone: Start: 04-02-2022 End: 04-02-[address] Nadine Salamanca Work Phone: [facility] Internal Medicine Start: 03-25-2022 End: 03-25-[address] Nadine Salamanca Work Phone: [facility] Neurology Start: 03-24-2022 End: 03-24-[address] Nadine Salamanca Work Phone: [facility] Work Phone: Start: 03-24-2022 End: 03-24-2022 Encounter for general adult medical examination without abnormal findings Dr. Nadine Salamanca Work Phone: [facility] Internal Medicine Start: 03-24-2022 End: 03-24-[address] Nadine Salamanca Work Phone: [facility] Start: 12-15-2021 Telephone encounter Rosemary Metzger MD Work Phone: OB/Gynecology Comment on above: Orders Start: 10-23-2021 End: 10-23-2021 Encounter for general adult medical examination without abnormal findings Dr. Nadine Salamanca Work Phone: [facility] Internal Medicine Start: 10-23-2021 End: 10-23-[address] Nadine Salamanca Work Phone: [facility] Start: 10-21-2021 End: 10-21-[address] [facility] Start: 09-22-2021 End: 09-22-[address] Nadine Salamanca Work Phone: [facility], [place] Start: 09-21-2021 End: 09-21-[address] Nadine Salamanca Work Phone: [facility] Start: 09-14-2021 End: 09-14-[address] Nadine Salamanca Work Phone: [facility], [facility] Start: 07-29-2021 End: 07-29-[address] Nadine Salamanca Work Phone: [facility] Internal Medicine Start: 03-11-[address] Yumi Salamanca Work Phone: [facility] Start: 11-19-2020 ambulatory RALPH XIONG Facility:[facility] Start: 01-15-2017 End: 01-15-2017 Emergency department [facility] Start: 11-07-2009 End: 05-11-2012 Patient encounter status Mohini Sanchez APRN.MENTAL HEALTH CLINICIAN Work Phone: [facility] Procedures Date Procedure Procedure Detail Performing Clinician [...] the productionof interferon gamma. Chemiluminescence immunoassaymethodologyPerformed at: [address] [id number] Director: Ismael Keith PhD, Phone: [phone] Start: 08-02-[address] Bridger [...] Activity Detail Author Start: 09-13-2026 Colonoscopy COLONOSCOPY [facility] Start: 09-13-2026 COLORECTAL CANCER SCREENING COLORECTAL CANCER SCREENING [facility] Start: 09-13-2026 Screening for malign ant neoplasm of colon [facility] Start: 08-02-2025 End: 08-02-2025 Patient encounter procedure Mammogram Comment on above: Encounter for screen ing mammogram for breast cancer [Z12.31] Annual Start: 07-31-2025 Screening for malign ant neoplasm of breast Mammogram Screening [facility] Start: 07-31-2025 Screening for malign ant neoplasm of cervix Cervical Cancer Screening [facility] Start: 01-14-2025 HPV TESTING HPV TESTING [facility] Start: 01-14-2025 PAP TESTING PAP TESTING [facility] Start: 01-14-2025 Screening for malign ant neoplasm of cervix [facility] Start: 12-03-2024 Influenza vaccination C [facility] Start: 10-08-2024 X-ray of knee, four or more views Knee 4 or More Views [facility] Start: 10-08-2024 XR Knee GE 4 Views [facility] Start: 06-01-2024 Screening for malign ant neoplasm of breast Mammogram Screening [facility] Start: 12-04-2023 Covid-19 Vaccine () Covid-19 Vaccine () [facility] Start: 12-04-2023 Influenza vaccination Influenza Vacc ine (#1) [facility] Start: 05-24-2023 Mammography Mammogram Screening [facility] Start: 05-24-2023 Screening for malign ant neoplasm of breast Mammogram Screening [facility] Start: 04-04-2023 [facility] Start: 12-03-2022 Covid-19 Vaccine () Covid-19 Vaccine () [facility] Start: 12-03-2022 Influenza vaccination Influenza Vacc ine (#1) [facility] Start: 04-04-2022 DEPRESSION ASSESSMENT DEPRESSION ASS ESSMENT [facility] Start: 04-02-2022 Viral nucleic acid assay [facility] Work Phone: Start: 03-24-2022 Patient referral [facility] Work Phone: Start: 02-10-2022 Mammography MAMMOGRAM [facility] Start: 12-03-2021 Influenza vaccination INFLUENZA (#1) [facility] Start: 01-30-2021 Lipid 1996 panel - Serum or Plasma Lipid Screening [facility] Start: 01-30-2021 Lipid panel Lipid Screening [facility] Start: 01-30-2021 LIPID SCREEN LIPID SCREEN [facility] Start: 01-14-2021 Screening for malign ant neoplasm of cervix Cervical Cancer Screening [facility] Start: 10-20-2020 COVID-19 VACCINE (4 - Booster) COVID-19 VACCINE (4 - Booster) [facility] Start: 08-15-2020 COVID-19 VACCINE (4 - Booster) COVID-19 VACCINE (4 - Booster) [facility] Start: 01-30-2019 DIABETES SCREEN DIABETES SCREEN [facility] Start: 01-30-2019 Diabetes Screening Diabetes Screenin g [facility] Start: 05-06-2017 Adult depression screening assessment DEPRESSION SCREENING [facility] Start: 02-28-2017 End: 02-28-2017 Appointment Appointment [facility] Work Phone: Start: 2016 SHINGRIX VACCINE (1 of 2) SHINGRIX VACCINE (1 of 2) [facility] Start: 2011 COLOGUARD (FIT-DNA) COLOGUARD (FIT-D NA) [facility] Start: [address] COLONOGRAPHY [facility] Start: 2011 FECAL OCCULT BLOOD FECAL OCCULT BLOO D [facility] Start: 2011 Screening for malign ant neoplasm of colon [facility] Start: 2011 SIGMOIDOSCOPY SIGMOIDOSCOPY [facility] Start: 10-06-2008 Urine microalbumin profile [facility] Start: 1985 Hepatitis B Vaccine (1 of 3 - 19+ 3-dose series) Hepatitis B Vaccine (1 of 3 - 19+ 3-dose series) [facility] Start: 1985 Pneumococcal Vaccine : 50+ (1 of 2 - PCV) Pneumococcal Vaccine: 50+ (1 of 2 - PCV) [facility] Start: 1985 Shingrix Vaccine (1 of 2) Shingrix Vaccine (1 of 2) [facility] Start: 1984 ANNUAL PCP TEAM 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 DISEASE VISIT ANNUAL PCP TEAM CHRONIC DISEASE VISIT [facility] Start: 1984 Anxiety Screening Anxiety Screening [facility] Start: 1984 BP CONTROLLED (<130/80) BP CONTROLLE D (<130/80) [facility] Start: 1984 Depression Screening Depression Scre ening [facility] Start: 1984 HEPATITIS C SCREENING HEPATITIS C [facility] Start: 1984 Hepatitis C screening Hepatitis C [facility] Start: 1984 HIV SCREENING HIV SCREENING [facility] Start: 1984 HIV screening HIV Screening [facility] Start: 1966 HEPATITIS B (1 of 3 - 3-dose series) HEPATITIS B (1 of 3 - 3-dose series) [facility] Start: 1966 Hepatitis B Vaccine (1 of 3 - 3-dose series) Hepatitis B Vaccine (1 of 3 - 3-dose series) [facility] End: 06-22-2024 DBT Breast - bilateral screening [facility] SCREENING W [facility]O Radiology Routine Encounter for screening mammogram for breast cancer 1 Occurrences starting 05/24/2023 until 06/22/2024 [facility] Work Phone: Comment on above: 1 Occurrences starti ng 05/24/2023 until 06/22/2024 End: 08-30-2025 DBT Breast - bilateral screening ARMANDO SCREENING W MOMO Radiology Routine Encounter for gynecological examination (general) (routine) without abnormal findings Encounter for screening mammogram for breast cancer 1 Occurrences starting 07/31/2024 until 08/30/2025 [facility] Work Phone: Comment on above: 1 Occurrences starti ng 07/31/2024 until 08/30/2025 DBT Breast - bilater al screening ARMANDO SCREENING W MOMO Radiology Routine Breast cancer screening by mammogram 07/31/2024 1:06 PM EDT [facility] Work Phone: Lipid 1996 panel - Serum or Plasma [facility] Work Phone: End: 06-23-2023 ARMANDO SCREENING W MOMO ARM[facility]O SCREENING W MOMO Radiology Routine Encounter for gynecological examination (general) (routine) without abnormal findings Encounter for screening mammogram for breast cancer 1 Occurrences starting 05/24/2022 until 06/23/2023 [facility] Work Phone: Comment on above: 1 Occurrences starti ng 05/24/2022 until 06/23/2023 PAP TEST PAP TEST Lab Rou carlos Encounter for gynecological examination (general) (routine) without abnormal findings Encounter for screening for human papillomavirus (HPV) Pap smear for cervical cancer screening 07/31/2024 1:59 PM EDT [facility] Patient referral [facility] Work Phone: End: 01-14-2023 Screening mammography bi 2-view breast inc cad [facility]O SCREENING Radiology Routine Encounter for screening mammogram for malignant neoplasm of breast 1 Occurrences starting 12/21/2021 until 01/14/2023 [facility] Work Phone: Comment on above: 1 Occurrences starti ng 12/21/2021 until 01/14/2023 [facility] Work Phone: [facility] Immunizations Immunization Date Immunization Notes Care Provider Marcelo garland 06-20-2020 Covid (Pfizer) Dr. Nadine Salamanca Work Phone: [facility] 05-30-2020 Covid (Pfizer) Dr. Nadine Salamanca Work Phone: [facility] 05-14-2020 COVID-19 original vaccine, age 12+ yr, monovalent ([employer]-RABT - PURPLE TOP) Mohini Sanchez APRN.CNP Work Phone: [facility] 03-25-2016 influenza virus vaccine, unspecified formulation Screen Wstr [facility] 10-05-2008 tetanus and diphther ia toxoids, adsorbed, preservative free, for adult use (2 Lf of tetanus toxoid and 2 Lf of diphtheria toxoid) Rosemary Metzger MD Work Phone: [facility] Work Phone: Payers Date Payer Category Payer Self-pay [id number] 2018 Private Health Insurance MMO [employer] PPO [id number] 2018 Unknown [id number] 2013 Unknown [id number] 1966 [id number] Unknown [id number] Unknown [id number] ..840.1.339695.3.579.2. 462 Unknown [id number] ..840.1.751043.3.579.2. 462 Unknown [id number] .840.1.911412.3.579.2. 462 Unknown [id number] .840.1.473910.3.579.2. 462 Unknown [id number] .840.1.177873.3.579.2. 462 Unknown [id number] .840.1.392009.3.579.2. 462 Unknown [id number] .840.1.335977.3.579.2. 462 Unknown [id number] .840.1.510425.3.579.2. 462 Unknown [id number] .840.1.520076.3.579.2. 462 Unknown [id number] .840.1.238414.3.579.2. 462 Unknown [id number] .840.1.936760.3.579.2. 462 Unknown [id number] .840.1.575328.3.579.2. 462 Unknown [id number] .840.1.996094.3.579.2. 462 Unknown [id number] .840.1.436443.3.579.2. 462 Unknown [id number] .840.1.056811.3.579.2. 462 Unknown [id number] .840.1.682976.3.579.2. 462 Unknown [id number] .840.1.230671.3.579.2. 462 Unknown [id number] 2..840.1.916340.3.579.2. 462 Unknown [id number] 2..840.1.482226.3.579.2. 462 Unknown [id number] 2..840.1.220594.3.579.2. 462 Unknown [id number] 2..840.1.510617.3.579.2. 462 Social History Date Type Detail Facility Start: 07-29-2021 End: 04-07-2023 Tobacco smoking status WAIS Unknown if ever smoked [facility] Start: 12-26-2018 Rare [facility] Start: 12-26-2018 None [facility] Start: 12-26-2018 Spouse/ Signif icant Other [facility] Start: 1965 Sex Assigned At Female [facility] Start: 05-28-2013 End: 04-07-2023 Tobacco smoking status NHIS Never smoked tobacco [facility] Start: 05-28-2013 End: 05-24-2022 Tobacco use and exposure Smokeless tobacco non-user [facility] Start: 01-26-2021 End: 07-31-2024 Alcohol intake Current drinker of alcohol (finding) [facility] Start: 1965 Sex Assigned At Not on file [facility] Start: 05-24-2022 End: 08-26-2022 History of Social function [facility] Start: 05-24-2022 End: 08-26-2022 Tobacco use panel [facility] National Score (1-100), lower number is lower risk 69 [facility] Start: 06-30-2024 End: 07-03-2024 Sex Female (finding) [facility] Functional Status Date Assessment Result Facility 11-04-2014 Are you deaf, or do you have serious difficulty hearing No 11/04/2014 3:38 PM Laura Weston MA No [facility] 11-04-2014 Are you blind, or do you have serious difficulty seeing, even when wearing glasses No 11/04/2014 3:38 PM Laura Weston MA No [facility] 11-04-2014 Do you have serious difficulty walking or climbing stairs No 11/04/2014 3:38 PM EDT Laura Alegria MA No [facility] 11-04-2014 Do you have difficul ty dressing or bathing No 11/04/2014 3:38 PM EDT Laura Alegria MA No [facility] 11-04-2014 Because of a physica l, mental, or emotional condition, do you have difficulty doing errands alone such as visiting a physician's office or shopping No 11/04/2014 3:38 PM EDT Laura Alegria MA No [facility] Mental Status Date Assessment Result Facility 11-04-2014 Because of a physica l, mental, or emotional condition, do you have serious difficulty concentrating, remembering, or making decisions No 11/04/2014 3:38 PM EDT Laura Alegria MA No [facility] Clinical Notes 04-23-2013 to 10-08-2024 Note Date & Type Note Facility 10-08-2024 Evaluation note Diagnosis Onset Date Resolution Knee pain, left acute October 08, 2024 11:41am [facility] Work Phone: 1(190) 321-126707-07-2025 Radiology Diagnostic study note [facility] Imaging Services [address] [place] [address] Knee 4 or More Views MR#: [id number] Acct: [id number] Name: ISI GENAO Rep #: [id number] : 1965 F 59 From: Pet er Peer DO PCP: Dr. Nadine Salamanca MD Status: R EG CLI Study:Knee 4 or More Views Date of Exam: 10/08/24 Exam# [id number] Ordering Dr: Ludivina Guzmán PROCEDURE: KNEE 4 [...] Dr. Nadine Salamanca MD; BETH Astorga ~ Fuel Pilot Engineer: Signed [facility]05-05-2025 Progress note* Result Encounter Note - Rosemary Metzger MD - 08/06/2024 11:00 AM EDT Send letter about normal pap if she does not have mychart. Rosemary Metzger MD [facility]05-05-2025 Miscellaneous Notes* Result Encounter Note - Rosemary Metzger MD - 08/06/2024 11:00 AM EDT Send letter about normal pap if she does not have mychart. Rosemary Metzger MD documented in this encounter[facility] Radiology Diagnostic study note [facility] Imaging Services [address] [place], [place] [address] Chest PA and Lateral MR#: [id number] Acct: [id number] Name: ISI GENAO Rep #: [id number] : 1965 F 59 From: Eliezer Flood MD PCP: Dr. Nadine Salamanca MD Status: R EG CLI Study:Chest PA and Lateral Date of Exam: 08/03/24 Exam# [id number] Ordering Dr: Namrata Braden MD PROCEDURE: CHEST [...] No evidence of acute disease. Reading Location: [facility] CC: Dr. Nadine Salamanca MD; Dr. Namrata Braden MD ~ Fuel Pilot Engineer: Signed [facility]04-29-2025 History of Present illness Narrative* [...] PATIENT PRESENTS WITH AN IMPLANTABLE OR ATTACHED SEMICONDUCTOR PACKAGES PLATEMAKER: No RADIOLOGY DEPARTMENT: Mammography PERIPHERAL IV DATA: Not applicable SIGNED BY: JUAN MANUEL Pinedo) July 31, 2024 1:12 PM documented in this encounterFire[facility]-2025 NoteHNO ID: [id number] Author: JESSICA DIAMOND RT(R) Service: ? Author [...] PATIENT PRESENTS WITH AN IMPLANTABLE OR ATTACHED SEMICONDUCTOR PACKAGES PLATEMAKER: No RADIOLOGY DEPARTMENT: Mammography PERIPHERAL IV DATA: Not applicable SIGNED BY: RT Khris(Vinnie) July 31, 2024 1:12 [facility]04-29-2025 NoteHNO ID: [id number] Author: MOHINI SANCHEZ APRN.MENTAL HEALTH CLINICIAN Service: ? Author Type: Nurse Practitioner Type: Progress Notes Filed: 07/31/2024 13:57 Note Text: Patient declined gag writer. Isi is a 59 year old who [...] Hypertension Father Coronary Artery Disease Father first AL/angioplasty age 40's -- MULTPLE interventions other (aortic [...] discussed with the Patient or Patient's Authorized Director Radiation Oncology. As applicable, any other physician, advance practice provider, medical student, or other health professional student that will be observing or involved in the sensitive examination for educational or training purposes was discussed with the Patient or Authorized Director Radiation Oncology. The Patient or Authorized Director Radiation Oncology has agreed to proceed with the sensitive [...] genitalia normal, normal Bartholin's glands, urethra, Dos Palos's glands, no vulvar lesions, no cervical lesions, [...] ordered for pain with intercourse Mohini Sanchez APRN.[facility]04-29-2025 History of Present illness Narrative* Mohini Sanchez APRN.MENTAL HEALTH CLINICIAN - 07/31/2024 12:35 PM EDT Patient declined gag writer. Isi is a 59 year old who [...] Hypertension Father Coronary Artery Disease Father first AL/angioplasty age 40's -- MULTPLE interventions other (aortic [...] discussed with the Patient or Patient's Authorized Director Radiation Oncology. As applicable, any other physician, advance practice provider, medical student, or other health professional student that will be observing or involved in the sensitive examination for educational or training purposes was discussed with the Patient or Authorized Director Radiation Oncology. The Patient or Authorized Director Radiation Oncology has agreed to proceed with the sensitive [...] genitalia normal, normal Bartholin's glands, urethra, Dos Palos's glands, no vulvar lesions, no cervical lesions, [...] intercourse Mohini Sanchez APRN.JOSE documented in this encounterFire[facility] Radiology Diagnostic study note [facility] Imaging Services [address] [place] [address] Kidney and Bladder MR#: [id number] Acct: [id number] Name: ISI GENAO Rep #: [id number] : 1965 F 59 From: Lexii Maloney MD PCP: Dr. Nadine Salamanca MD Status: R EG CLI Study:Kidney and Bladder Date of Exam: 0 06/25/24 Exam# [id number] Ordering Dr: Talon Matthews MD EXAM: US [...] IMPRESSION: Multiple bilateral renal cysts. Reading Location: [facility] CC: Dr. Nadine Salamanca MD; Dr. Aaron Matthews MD ~ Fuel Pilot Engineer: Signed [facility]03-10-2025 Evaluation note* Diagnosis Onset Date Resolution Status Admit Date Elevated antinuclear antibod y (FRANK) level acute June 11, 2024 8:23am Anxiety and depression chronic [facility] 2024 8:23am Borderline type 2 diabetes mellitus chronic June 11, 2024 8:23am Hypertension chronic June 11, 2024 8:23am Obstructive sleep apnea chronic M arch 2024 8:23am Polycystic kidney disease chronic June 11, 2024 8:23am [facility] Work Phone: 1(797) 736-374403-10-2025 Evaluation note* Diagnosis Onset Date Resolution Status Admit Date Elevated antinuclear antibod y (FRANK) level acute June 11, 2024 8:23am Anxiety and depression chronic [facility] 2024 8:23am Borderline type 2 diabetes mellitus chronic June 11, 2024 8:23am Hypertension chronic June 11, 2024 8:23am Obstructive sleep apnea chronic M arch 2024 8:23am Polycystic kidney disease chronic June 11, 2024 8:23am Knee pain, left acute October 08, 2024 11:41am [facility] Work Phone: 1(840) 501-677602-28-2024 History of Present illness Narrative* Polo Khna Mammo Tech - 06/01/2023 3:40 PM EST [...] PATIENT PRESENTS WITH AN IMPLANTABLE OR ATTACHED SEMICONDUCTOR PACKAGES PLATEMAKER: No RADIOLOGY DEPARTMENT: Mammography PERIPHERAL IV DATA: Not applicable SIGNED BY: Keisha Kelley June 01, 2023 4:11 PM documented in this encounterFirelands [facility]02-20-2024 History of Present illness Narrative* Mohini Sanchez APRN.CNP - 05/24/2023 3:46 PM EST Java Technical Manager offered: Patient declines. Isi is a 58 [...] Comment: Pt also had 2 Step- children Business Quality Assurance Analyst History LMP: 10/29/2020 (Exact Date), Postmenopausal Age at Menarche: Age at First : Age at Menopause: Business Quality Assurance Analyst History Comments: Sexual Activity: Yes; Male Contraception: [...] FLX DX W/COLLJ SPEC WHEN PFRMD 02/18/2017 [facility] DILATION & CURETTAGE DX&/THER NONOBSTETRIC 1996 Dilation & curettage FAMILY HISTORY Problem Relation Age of Onset Hypertension Father Coronary Artery Disease Father first AL/angioplasty age 40's -- MULTPLE interventions other (aortic [...] genitalia normal, normal Bartholin's glands, urethra, Dos Palos's glands, no vulvar lesions, no cervical lesions, [...] year or sooner as needed Mohini Sanchez APRN.MENTAL HEALTH CLINICIAN documented in this encounterFirelands [facility]02-20-2023 History of Present illness Narrative* Rosemary Metzger [...] Comment: Pt also had 2 Step- children Business Quality Assurance Analyst History LMP: 10/29/2020 (Exact Date), Postmenopausal Age at Menarche: Age at First : Age at Menopause: Business Quality Assurance Analyst History Comments: Sexual Activity: Yes; Male Contraception: [...] FLX DX W/COLLJ SPEC WHEN PFRMD 02/18/2017 [facility] DILATION & CURETTAGE DX&/THER NONOBSTETRIC 1996 Dilation & curettage FAMILY HISTORY Problem Relation Age of Onset Hypertension Father Coronary Artery Disease Father first AL/angioplasty age 40's -- MULTPLE interventions other (aortic [...] genitalia normal, normal Bartholin's glands, urethra, Dos Palos's glands, no vulvar lesions, no cervical lesions, [...] needed Rosemary Metzger MD documented in this encounterFirelands [facility]09-13-2022 Miscellaneous Notes* Telephone Encounter - Verónica Abbasi - 12/15/2021 2:20 PM EDT Patient is scheduled for mammogram screening 03/01/22 (requested to be scheduled on that specific date). Please submit order prior to appointment. Thank you. documented in this encounterFirelands [facility] Medical [facility]01-20-2014 History of Past illness Narrative* Problem Noted Date Resolved Date Hypothyroidism 04/23/2013 03/25/2016 Routine general medical exam ination at a health care facility 11/07/2009 05/11/2012 Overview: 11/07/2009, from Dr. Dinero Routine gynecological examination 11/07/2009 05/11/2012 Overview: [facility] [place] [facility] for Prescription of Oral Cont raceptives 03/30/2005 05/11/2012 documented as of this encounter (statuses as of 12/21/2021) [facility]01[facility] History of Past illness Narrative* Problem Noted Date Resolved Date Hypothyroidism 04/23/2013 03/25/2016 Routine general medical exam ination at a health care facility 11/07/2009 05/11/2012 Overview: 11/07/2009, from Dr. Dinero Routine gynecological examination 11/07/2009 05/11/2012 Overview: [facility] [place] [facility] for Prescription of Oral Cont raceptives 03/30/2005 05/11/2012 documented as of this encounter (statuses as of 05/24/2022) [facility] History of Past illness Narrative* Problem Noted Date Diagnosed Date Resolved Date Hypothyroidism 04/23/2013 03/25/2016 Routine general medical exam ination at a health care facility 11/07/2009 05/11/2012 Overview: 11/07/2009, from Dr. Dinero Routine gynecological examination 11/07/2009 05/11/2012 Overview: [facility] [place] [facility] for Presc ription of Oral Contraceptives 03/30/2005 05/11/2012 documented as of this encounter (statuses as of 02/06/2023) [facility] History of Past illness Narrative* Problem Noted Date Diagnosed Date Resolved Date Hypothyroidism 04/23/2013 03/25/2016 Routine general medical exam ination at a health care facility 11/07/2009 05/11/2012 Overview: 11/07/2009, from Dr. Dinero Routine gynecological examination 11/07/2009 05/11/2012 Overview: [facility] [place] [facility] for Presc ription of Oral Contraceptives 03/30/2005 05/11/2012 documented as of this encounter (statuses as of 05/24/2023) [facility] History of Past illness Narrative* Problem Noted Date Diagnosed Date Resolved Date Hypothyroidism 04/23/2013 03/25/2016 Routine general medical exam ination at a health care facility 11/07/2009 05/11/2012 Overview: 11/07/2009, from Dr. Dinero Routine gynecological examination 11/07/2009 05/11/2012 Overview: [facility] [place] [facility] for Presc ription of Oral Contraceptives 03/30/2005 05/11/2012 documented as of this encounter (statuses as of 06/02/2023) [facility]* Diagnosis Onset Date Resolution Status Anxiety and depression chron ic Hyperlipemia chronic Hypertension chronic Polycystic kidney disease [facility] Work Phone: Evaluation note* Diagnosis Onset Date Resolution Status Anxiety and depression chron ic Hyperlipemia chronic Hypertension chronic Polycystic kidney disease [facility] Cerebrovascular disease acut e Complement abnormality acute Memory loss due to medical condition acute [facility] Work Phone: Evaluation note* Diagnosis Onset Date Resolution Status Anxiety and depression chron ic Hyperlipemia chronic Hypertension chronic Polycystic kidney disease [facility] Cerebrovascular disease acut e Complement abnormality acute Memory loss due to medical condition acute Health care maintenance acut e Anxiety and depression chron ic Hypertension chronic Polycystic kidney disease [facility] Work Phone: Evaluation note* Diagnosis Encounter for screening mammogram for malignant neoplasm of breast- Primary Other screening mammogram documented in this encounter [facility] note* Diagnosis Onset Date Resolution Status Health care maintenance acut e Post-viral cough syndrome ac augustine Anxiety and depression chron ic Hypertension chronic Polycystic kidney disease [facility] 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 Chest congestion acute Cough acute [facility] Work Phone: Evaluation note* Diagnosis Encounter for gynecological examination (general) (routine) without abnormal findings- Primary Encounter for screening mammogram for breast cancer documented in this encounter [facility] note* Diagnosis Onset Date Resolution Status Health care maintenance acut e Allergies chronic Anxiety and depression chron ic Hyperlipemia chronic Hypertension [facility] Work Phone: Evaluation note* Diagnosis Encounter for screening mammogram for malignant neoplasm of breast Other screening mammogram [facility]* Diagnosis Encounter for gynecological examination (general) (routine) without abnormal findings- Primary Encounter for screening mammogram for breast cancer documented in this encounter [facility] note* Diagnosis Encounter for screening mammogram for breast cancer documented in this encounter [facility] note* Diagnosis Onset Date Resolution Status Acute sinusitis, unspecified acute 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 Anxiety and depression chron ic Borderline type 2 diabetes mellitus chronic Hypertension chronic Insomnia chronic [facility] Work Phone: Evaluation note* Diagnosis Encounter for gynecological examination (general) (routine) without abnormal findings- Primary Encounter for screening for human papillomavirus (HPV) Special screening examination for human papillomavirus (HPV) Pap smear for cervical cancer screening Screening for malignant neoplasm of the cervix Encounter for screening mammogram for breast cancer Vaginal atrophy Postmenopausal atrophic vaginitis documented in this encounter [facility] [place] [facility]* Diagnosis Breast cancer screening by mammogram documented in this encounter [facility] for referral (narrative)* Diagnostic Procedure Only (Routine) - Pending Review Specialty Diagnoses / Procedures Referred By Brain abdullahi Referred To Contact [facility] Diagnoses Encounter for screening mammogram for malignant neoplasm of breast Procedures ARMANDO SCREENING SCREENING MAMMOGRAPHY BI 2-VIEW BREAST INC Rosemary Brambila MD [address] [place] [address] [facility] [address] [place] [address] Referral ID Status Reason Start Date Expiration Date Visits Requested Visits Authorized [id number] Pending Review Auto-Generat ed Referral 12/21/2021 01/14/2023 1 1 T [facility] for referral (narrative)* Diagnostic Procedure [...] Rosemary Brambila MD [address] [place] [address] [facility] [address] [address] Referral ID Status Reason Start Date Expiration Date Visits Requested Visits Authorized [id number] Authorized Auto-Generat ed Referral 05/24/2022 06/23/2023 1 1 [facility] for referral (narrative)* Diagnostic Procedure Only (Routine) - Closed Specialty Diagnoses / Procedures Referred By Brain abdullahi Referred To Contact [facility] Diagnoses Encounter for screening mammogram for malignant neoplasm of breast Procedures ARMANDO SCREENING SCREENING MAMMOGRAPHY BI 2-VIEW BREAST INC CAD Rosemary Metzger MD [address] [place] [address] [facility] [address] [place] [address] Referral ID Status Reason Start Date Expiration Date V isits Requested Visits Authorized [id number] Closed Auto-Generate d Referral 12/21/2021 01/14/2023 1 1 [facility] for referral (narrative)* Diagnostic Procedure Only (Routine) - Pending Review Specialty Diagnoses / Procedures Referred By Contac t Referred To Contact [facility] Diagnoses Encounter for screening mammogram for breast cancer Procedures ARMANDO SCREENING W MOMO SCREENING DIGITAL BREAST TOMOSYNTHESIS BI SCREENING MAMMOGRAPHY BI 2-VIEW BREAST INC CAD [employer] APRN.MENTAL HEALTH CLINICIAN [address] [place] [address] [facility] [address] [place] [address] Referral ID Status Reason Start Date Expiration Date Visits Requested Visits Authorized [id number] Pending Review Auto-Generat ed Referral 05/24/2023 06/22/2024 1 1 [facility] for referral (narrative)* Diagnostic Procedure Only (Routine) - Closed Specialty Diagnoses / Procedures Referred By Contac t Referred To Contact [facility] Diagnoses Encounter for screening mammogram for breast cancer Procedures ARMANDO SCREENING W MOMO SCREENING DIGITAL BREAST TOMOSYNTHESIS BI SCREENING MAMMOGRAPHY BI 2-VIEW BREAST INC CAD [employer] APRN.MENTAL HEALTH CLINICIAN [address] [place] [address] [facility] [address] [place] [address] Referral ID Status Reason Start Date Expiration Date V isits Requested Visits Authorized [id number] Closed Auto-Generate d Referral 05/24/2023 06/22/2024 1 1 [facility] for referral (narrative)No reason for referral information [facility]Children[facility] Work Phone: Reason for visit Narrative* Diagnostic Procedure Only (Routine) - Closed Specialty Diagnoses / Procedures Referred By Contac t Referred To Contact [facility] Diagnoses Encounter for screening mammogram for malignant neoplasm of breast Procedures ARMANDO SCREENING SCREENING MAMMOGRAPHY BI 2-VIEW BREAST INC CAD Rosemary Metzger MD [address] [place] [place] [address] [facility] [address] [place] [address] Referral ID Status Reason Start Date Expiration Date V isits Requested Visits Authorized [id number] Closed Auto-Generate d Referral 12/21/2021 01/14/2023 1 1 [facility] for visit Narrative* Diagnostic Procedure Only (Routine) - Closed Specialty Diagnoses / Procedures Referred By Contac t Referred To Contact [facility] Diagnoses Encounter for screening mammogram for breast cancer Procedures ARMANDO SCREENING W MOMO SCREENING DIGITAL BREAST TOMOSYNTHESIS BI SCREENING MAMMOGRAPHY BI 2-VIEW BREAST INC CAD Mohini Sanchez APRN.MENTAL HEALTH CLINICIAN [address] [place] [address] [facility] [address] [place] [address] Referral ID Status Reason Start Date Expiration Date V isits Requested Visits Authorized [id number] Closed Auto-Generate d Referral 05/24/2023 06/22/2024 1 1 [facility] for visit Narrative* Diagnostic Procedure Only (Routine) - Closed Specialty Diagnoses / Procedures Referred By Contac t Referred To Contact [facility] Diagnoses Breast cancer screening by mammogram Procedures ARMANDO SCREENING W MOMO SCREENING DIGITAL BREAST TOMOSYNTHESIS BI SCREENING MAMMOGRAPHY BI 2-VIEW BREAST INC CAD Mohini Sanchez APRN.MENTAL HEALTH CLINICIAN [address] [place] [address] Phone: tel: fax: [facility] [address] [place] [address] Referral ID Status Reason Start Date Expiration Date V isits Requested Visits Authorized [id number] Closed Auto-Generate d Referral 05/10/2024 06/08/2025 1 1 [facility] Summary Purpose Family History No Family History [...] Yes December 31, 2020 9:25am Power of Road Traffic Controller Yes December 9:25am Advance Directive Response Recorded Date/ Time Living Will Yes December 31, 2020 8:25am Power of Road Traffic Controller Yes December 8:25am Advance Directive Response Recorded Date/ Time Living Will Yes April 07 5:54pm Power of Road Traffic Controller Yes April 07 5:54pm Advance Directive Response Recorded Date/ Time Living Will Yes March 04 1:15am Do you have a Healthcare Power of Road Traffic Controller? Yes March 04, 2024 1:15am Living Will Yes May 05 2:45am Do you have a Healthcare Power of Road Traffic Controller? Yes May 05, 2024 2:45am Living Will Yes June 02, 2024 2:08am Do you have a Healthcare Power of Road Traffic Controller? Yes June 02, 2024 2:08am Living Will Yes April 04 1:11am Do you have a Healthcare Power of Road Traffic Controller? Yes April 04, 2024 1:11am Advance Directive Response Recorded Date/ Time Living Will Yes May 05 2:45am Do you have a Healthcare Power of Road Traffic Controller? Yes May 05, 2024 2:45am Living Will Yes June 02, 2024 2:08am Do you have a Healthcare Power of Road Traffic Controller? Yes June 02, 2024 2:08am Living Will Yes July 03, 2024 12:19am Do you have a Healthcare Power of Road Traffic Controller? Yes July 03, 2024 12:19am Living Will Yes April 04 1:11am Do you have a Healthcare Power of Road Traffic Controller? Yes April 04, 2024 1:11am Advance Directive Response Recorded Date/ Time Living Will Yes May 05 2:45am Do you have a Healthcare Power of Road Traffic Controller? Yes May 05, 2024 2:45am Living Will Yes June 02, 2024 2:08am Do you have a Healthcare Power of Road Traffic Controller? Yes June 02, 2024 2:08am Living Will Yes July 03, 2024 12:19am Do you have a Healthcare Power of Road Traffic Controller? Yes July 03, 2024 12:19am Living Will Yes August 02, 2024 12 :10am Do you have a Healthcare Power of Road Traffic Controller? Yes August 02, 2024 12:10am Advance Directive Response Recorded Date/ Time Living Will Yes June 02, 2024 2:08am Do you have a Healthcare Power of Road Traffic Controller? Yes June 02, 2024 2:08am Living Will Yes July 03, 2024 12:19am Do you have a Healthcare Power of Road Traffic Controller? Yes July 03, 2024 12:19am Living Will Yes August 02, 2024 12 :10am Do you have a Healthcare Power of Road Traffic Controller? Yes August 02, 2024 12:10am Living Will Yes September 02, 2024 1 2:08am Do you have a Healthcare Power of Road Traffic Controller? Yes September 02, 2024 12:08am Advance Directive Response Recorded Date/ Time Living Will Yes July 03, 2024 12:19am Do you have a Healthcare Power of Road Traffic Controller? Yes July 03, 2024 12:19am Living Will Yes August 02, 2024 12 :10am Do you have a Healthcare Power of Road Traffic Controller? Yes August 02, 2024 12:10am Living Will Yes September 02, 2024 1 2:08am Do you have a Healthcare Power of Road Traffic Controller? Yes September 02, 2024 12:08am Advance Directive Response Recorded Date/ Time Living Will Yes August 02, 2024 12 :10am Do you have a Healthcare Power of Road Traffic Controller? Yes August 02, 2024 12:10am Living Will Yes September 02, 2024 1 2:08am Do you have a Healthcare Power of Road Traffic Controller? Yes September 02, 2024 12:08am Advance Directive Response Recorded Date/ Time Living Will Yes September 02, 2024 1 2:08am Do you have a Healthcare Power of Road Traffic Controller? Yes September 02, 2024 12:08am Chief Complaint [...] section and content) DATE CREATED AUTHOR 09/27/2017 [facility] DATE CREATED AUTHOR AUTHOR'S ORGANIZ ATION 11/21/2020 [facility] DATE CREATED AUTHOR AUTHOR'S ORGANIZ ATION 08/09/2024 [facility] DATE CREATED AUTHOR AUTHOR'S ORGANIZ ATION 02/12/2025 [facility] Goals (unrecognized section and content) Goals [...] or prosecute any alcohol or drug abuse patient.[facility] the event this information is protected by the Federal Confidentiality of Alcohol and Drug Abuse Patient Records regulations: The Federal rules restrict any use of the information to criminally investigate or prosecute any alcohol or drug abuse patient.[facility] the event this information is protected by the Federal Confidentiality of Alcohol and Drug Abuse Patient Records regulations: The Federal rules restrict any use of the information to criminally investigate or prosecute any alcohol or drug abuse patient.[facility] Campus[facility] the event this information is protected by the Federal Confidentiality of Alcohol and Drug Abuse Patient Records regulations: The Federal rules restrict any use of the information to criminally investigate or prosecute any alcohol or drug abuse patient.[facility] CampusIn the event this information is protected by the Federal Confidentiality of Alcohol and Drug Abuse Patient Records regulations: The Federal rules restrict any use of the information to criminally investigate or prosecute any alcohol or drug abuse patient.[facility] CampusIn the event this information is protected by the Federal Confidentiality of Alcohol and Drug Abuse Patient Records regulations: The Federal rules restrict any use of the information to criminally investigate or prosecute any alcohol or drug abuse patient.[facility] CampusIn the event this information is protected by the Federal Confidentiality of Alcohol and Drug Abuse Patient Records regulations: The Federal rules restrict any use of the information to criminally investigate or prosecute any alcohol or drug abuse patient.[facility] CampusIn the event this information is protected by the Federal Confidentiality of Alcohol and Drug Abuse Patient Records regulations: The Federal rules restrict any use of the information to criminally investigate or prosecute any alcohol or drug abuse patient.[facility] CampusIn the event this information is protected by the Federal Confidentiality of Alcohol and Drug Abuse Patient Records regulations: The Federal rules restrict any use of the information to criminally investigate or prosecute any alcohol or drug abuse patient.[facility] Reason for Visit (unrecogniz ed section and [...] Inactive Member Role/Relationship Status Dates Dr. Nadine Saalmanca MD Primary Care Provider Active Start: October [...] 2024 End: October 08, 2024 Dr. Nadine Salmaanca MD Referring Provider Active Start: October 08, [...] Inactive Member Role/Relationship Status Dates Dr. Nadine aSlamanca MD Primary Care Provider Active Start: August [...] Inactive Member Role/Relationship Status Dates Dr. Nadine Saalmanca MD Primary Care Provider Active Start: October [...] BE BASED ON THE PRIMARY CLINICAL RECORDS. [facility] [employer] [facility]. provides no warranty or guarantee of the accuracy or completeness of information in this document.
--- NOTE | 2025-02-25 07:42 | PRE.ANES_ITS ---
ASA Classification* ASA Classification ASA Classification: 3 (BMI 40, T2DM, HTN, hx previous stroke. NPO since 7 PM last night) Assessment & Plan Anesthesia* Anesthesia Assessment Anesthesia Assessment: Discussed sedation and/or anesthesia options, risks, benefits, and alternatives with patient/parents/legal guardian/POA. Questions invited. The patient/parents/legal guardian/POA seems to understand and agrees to proceed with anesthesia plan. Reviewed the physical assessment, medical history, allergy history and patient home medications list prior to surgery/procedure/anesthetic and documented any changes. Performed airway and anesthesia risk assessments. ER vitals reviewed, WNL after initial HTN. Patient NPO since 7 PM, had a very small amount of water and soda in ED which patient threw back up. Given patient NPO status, will proceed with anesthesia as MAC. Will have GI in room at time of induction. Anesthesia Type Anesthesia Type: MAC History Source History Obtained from:: Patient and Chart Anesthesia Focused Assessment* Temperature: 97.6 F Pulse Rate: 74 Blood Pressure: 167/53 Respiratory Rate: 18 Pulse Ox: 99 Oxygen Delivery Method: Room Air Airway Assessment Mouth opens: >3 cm Mallampati Score: III Neck Range of motion (ROM): Full ROM Labs Anesthesia Preop lab: CBC WBC, (4.4-11.0) 10.3 K/mm3 Today, 00:22 RBC, (4.2-5.4) 4.79 M/mm3 Today, 00:22 Hgb, (12.0-15.0) 14.0 g/dL Today, 00:22 Hct, (37-47) 43.4 % Today, 00:22 Plt Count, (150-450) 242 K/mm3 Today, 00:22 CHEMISTRY Potassium, (3.3-5.1) 4.7 mmol/L Today, 00:22 Sodium, (133-145) 144 mmol/L Today, 00:22 Phosphorus, (2.7-4.5) 4.4 mg/dL 12/04/24, 16:05 BUN, (4-19) 16 mg/dL Today, 00:22 Creatinine, (0.70-1.20) 1.57 mg/dL H Today, 00:22 Glucose, (70-99) 148 mg/dL H Today, 00:22 POC Glucose, (70-110) 94 mg/dL 10/10/20, 19:25 TSH, (0.358-3.74) 1.84 uIU/mL 11/20/20, 10:39 COAG PT, (11.7-14.9) 12.9 SECONDS 10/10/20, 19:50 Urine Test Negative Negative 02/18/17, 02:15 Pre-Assessment Diagnosis/Proposed Procedure Planned Operative Procedure(s): EGD (food bolus) Anesthesia History 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 When Was Last Pacemaker Check QUESTION #4 FULL TEXT: You/Your Family Experience fever (hyperthermia) with Anesthesia Last Oral Intake Last Oral intake: Last Oral Intake NPO since Meds taken in AM with sips of water? 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 extension specialist Female HX of Motion Sickness HX of N/V After Surgery Non-Smoker Duration of Surgery greater than 60 minutes Number of Risk Factors PONV Score Height & Weight Height & Weight: Anesthesia: Height & Weight Height 5 ft 6 in 02/24/25 23:50 Weight: 114.9 kg 02/24/25 23:50 Body Mass Index (BMI) 40.8 02/24/25 23:50 Respiratory Assessment Respiratory Assessment - forestry extension specialist: Respiratory Tract Infection Hx - forestry extension specialist Hx Respiratory Tract Infection No 04/07/23 16:54 STOP Sleep Apnea STOP Sleep Apnea - forestry extension specialist: STOP Sleep Apnea - forestry extension specialist Hx Hypertension Yes 04/07/23 16:54 Hx Sleep Apnea No 04/07/23 16:54 CPAP BIPAP Do you snore loudly (louder than talking or can be heard Do you often feel tired/ fatigued/ sleepy during daytime? Has anyone observed you stop breathing during sleep? STOP Results QUESTION #5 FULL TEXT : Do you snore loudly (louder than talking or can be heard through closed doors)? 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 Specify any problems Hx of Preganancy in last 3 Months Nurse Filling Out Transfusion & Questions: Date: Time: Patient unable to answer at this time (ie. confused, unrespo /Reproduction History /Reproductive History - forestry extension specialist: /Reproductive Hx- forestry extension specialist Hx Now Gestational Age (in weeks): EDC: Hx Hx Para Hx Section SAB Does the father of the baby or his family experience fever w Father of the baby Malignant Hypertension history comment Active Medications Active Medications: Current Medications Generic Name Dose Route Start Last Admin Trade Name Freq PRN Reason Stop Dose Admin Sodium Chloride 1,000 mls @ 200 mls/hr 02/25/25 04:20 02/25/25 04:33 IV 200 mls/hr .Q5H FLORES Administration PFSH Medical History Obstructive sleep apnea Elevated antinuclear antibody (FRANK) level Hypersomnia Skin lesion of scalp Acute sinusitis, unspecified Borderline type 2 diabetes mellitus Blood glucose elevated Anxiety and depression Allergies Chronic sinusitis Sinusitis Bronchitis Cough Chest congestion Post-viral cough syndrome Health care maintenance Complement abnormality Occipital stroke Back pain History of bloody stools Kidney disease HTN (hypertension) Mitral valve prolapse Sciatica Hyperlipemia Seasonal allergies Home Medications ?Medication ?Instructions ?Recorded ?Last Taken ?Type ascorbic acid (vitamin C) 1,000 mg 1 g PO DAILY Check with primary 04/01/17 Unknown History tablet doctor aspirin 81 mg chewable tablet 162 mg (2 x 81 mg) PO DA RODNEY #60 03/24/21 Unknown Rx tabs multivitamin 1 tab PO DAILY 11/03/22 Unkn own History hydroxychloroquine 200 mg tablet 200 mg PO BID 4 Unknown History fluticasone propionate 50 2 spray intranasal DAILY Therese ck 03/16/24 Unknown Rx mcg/actuation nasal with primary doctor #48 gram s spray,suspension tolvaptan (polycys kidney dis) 60 See Rx Instructions PO PER PKG DIR 06/11/24 Unknown History mg (AM)/30 mg (PM) tablets (Jynarque) etanercept 50 mg/mL (1 mL) 50 mg subcut QWEEK 10/08/24 Unknown History subcutaneous pen injector (Enbrel SureClick) prednisone 10 mg tablet 10 mg PO .COMPLEX #30 tabs 0 10/08/24 Unknown Rx fluoxetine 20 mg capsule 20 mg PO DAILY #90 caps 11/02 06/26 Unknown Rx lisinopril 20 mg tablet 20 mg PO DAILY #90 tabs 05/29 Unknown Rx hydroxyzine HCl 25 mg tablet 25 mg PO QHS PRN Anxiety/ Sleep #90 02/08/25 Unknown Rx tabs rosuvastatin 40 mg tablet 40 mg PO QHS #90 tabs Unknown Rx Allergy/AdvReac Type Severity Reaction Status Date / Time grass pollen Allergy Intermediate Other Verified 02/24/25 23:50 tree and shrub pollen Allergy Intermediate Other Verified 02/24/25 23:50 Family History Father Heart disease aortic aneurysm at 38 Hyperlipemia Hypertension Kidney disease Grandmother Breast cancer Grandmother Cancer uterine Sister Brain aneurysm passed at 27 Grandfather CVA (cerebral vascular accident) Surgical History History of delivery History of D&C Normal colonoscopy Social History Smoking Status: Never smoker Electronic Cigarette Use: not used second hand exposure: No alcohol intake: current alcohol intake frequency: a few times a week Alcohol type: wine substance use type: does not use what type of physical activity do you participate in: walking frequency: daily Review of Systems (Anesthesia) ROS Narrative System reviewed and no additional complaints, except as documented. Physical Exam Const alert and oriented x3 Nutritional Appearance: obese Resp normal respiratory effort, normal air movement and clear to auscultation bilaterally Cardio regular rate, regular rhythm and no murmurs; Negative for diaphoretic
--- NOTE | 2025-02-25 07:53 | HP.PCM_ITS ---
HPI - General General Date of Admission: 02/25/25 Date of Service: 02/25/25 HPI Narrative ISI GENAO, is a 59-year-old female with a past medical history of hypertension, hyperlipidemia, and previous stroke (currently on aspirin only) presents to the emergency department approximately 5-6 hours after experiencing a foreign body sensation in her upper throat while eating steak around 6 PM. She reports kind of throwing up and bringing up a piece of food she believed was the obstruction. However, since the initial event, she has experienced persistent throat/substernal chest pain and continued bouts of vomiting with any attempt to eat or drink, with no symptom improvement. She has past medical history of positive kidney disease, hyperlipidemia, anxiety, depression. She takes 1000 mg of vitamin C a day, 162 mg of aspirin due to history of CVA along with hydrochloric when and Entracept for rheumatoid arthritis. [facility] Medical History Obstructive sleep apnea Elevated antinuclear antibody (FRANK) level Hypersomnia Skin lesion of scalp Acute sinusitis, unspecified Borderline type 2 diabetes mellitus Blood glucose elevated Anxiety and depression Allergies Chronic sinusitis Sinusitis Bronchitis Cough Chest congestion Post-viral cough syndrome Health care maintenance Complement abnormality Occipital stroke Back pain History of bloody stools Kidney disease HTN (hypertension) Mitral valve prolapse Sciatica Hyperlipemia Seasonal allergies Home Medications ?Medication ?Instructions ?Recorded ?Last Taken ?Type ascorbic acid (vitamin C) 1,000 mg 1 g PO DAILY Check with primary 04/01/17 Unknown History tablet doctor aspirin 81 mg chewable tablet 162 mg (2 x 81 mg) PO DA RODNEY #60 03/24/21 Unknown Rx tabs multivitamin 1 tab PO DAILY 11/03/22 Unkn own History hydroxychloroquine 200 mg tablet 200 mg PO BID 4 Unknown History fluticasone propionate 50 2 spray intranasal DAILY Therese ck 03/16/24 Unknown Rx mcg/actuation nasal with primary doctor #48 gram s spray,suspension tolvaptan (polycys kidney dis) 60 See Rx Instructions PO PER PKG DIR 06/11/24 Unknown History mg (AM)/30 mg (PM) tablets (Jynarque) etanercept 50 mg/mL (1 mL) 50 mg subcut QWEEK 10/08/24 Unknown History subcutaneous pen injector (Enbrel SureClick) prednisone 10 mg tablet 10 mg PO .COMPLEX #30 tabs 0 10/08/24 Unknown Rx fluoxetine 20 mg capsule 20 mg PO DAILY #90 caps 11/02 06/26 Unknown Rx lisinopril 20 mg tablet 20 mg PO DAILY #90 tabs 05/29 Unknown Rx hydroxyzine HCl 25 mg tablet 25 mg PO QHS PRN Anxiety/ Sleep #90 02/08/25 Unknown Rx tabs rosuvastatin 40 mg tablet 40 mg PO QHS #90 tabs Unknown Rx Allergy/AdvReac Type Severity Reaction Status Date / Time grass pollen Allergy Intermediate Other Verified 02/24/25 23:50 tree and shrub pollen Allergy Intermediate Other Verified 02/24/25 23:50 Family History Father Heart disease aortic aneurysm at 38 Hyperlipemia Hypertension Kidney disease Grandmother Breast cancer Grandmother Cancer uterine Sister Brain aneurysm passed at 27 Grandfather CVA (cerebral vascular accident) Surgical History History of delivery History of D&C Normal colonoscopy Social History Smoking Status: Never smoker Electronic Cigarette Use: not used second hand exposure: No alcohol intake: current alcohol intake frequency: a few times a week Alcohol type: wine substance use type: does not use what type of physical activity do you participate in: walking frequency: daily ROS Constitutional Constitutional: Denies fatigue, fever(s), poor appetite, weight gain or weight loss Gastrointestinal Gastrointestinal: Denies belching, bloating, change in bowel habits, change in stool character, chewing difficulty, coffee ground emesis, constipation, cramping, diarrhea, dyspepsia, dysphagia, early satiety, excessive flatus, fecal incontinence, heartburn, hematemesis, hematochezia, hemorrhoids, loose stools, melena, nausea, odynophagia, rectal bleeding, tenesmus, vomiting or weight changes Vital Signs Vital Signs Vital Signs: 02/24/25 23:50 02/25/25 01:50 02/25/25 03:00 Temperature 97.2 F L 97.6 F L Temperature Source Temporal Oral Pulse Rate 104 H 77 87 Respiratory Rate 25 H 16 16 Blood Pressure 185/81 H 137/70 H 149/74 H Blood Pressure Mean 115 92 99 Pulse Ox 98 95 96 Oxygen Delivery Method Room Air Room Air Room Air 02/25/25 04:17 02/25/25 05:00 02/25/25 07:00 Temperature 97.6 F L Temperature Source Pulse Rate 87 73 74 Respiratory Rate 16 16 18 Blood Pressure 149/74 H 145/57 H 167/53 H Blood Pressure Mean 99 86 91 Pulse Ox 96 92 99 Oxygen Delivery Method Room Air Room Air 02/25/25 07:44 Temperature 97.6 F L Temperature Source Pulse Rate 74 Respiratory Rate 18 Blood Pressure 167/53 H Blood Pressure Mean Pulse Ox 99 Oxygen Delivery Method Room Air Weight Weight: 253 lb 4.978 oz Body Mass Index (BMI) 40.8 Physical Exam Const alert, oriented x3, no apparent distress and healthy appearing General Appearance: cooperative GI normal to inspection, nondistended, normoactive bowel sounds, soft to palpation, non-tender and non-distended Percussion: normal to percussion Rectal Exam: deferred Results Lab / Micro Data 02/25/25 00:22 02/25/25 00:22 Labs: Laboratory Results - last 24 hr 02/25/25 00:22: WBC 10.3, RBC 4.79, Hgb 14.0, Hct 43.4, MCV 90.6, MCH 29.2, MCHC 32.3, RDW Std Deviation 41.2, RDW Coeff of Alanis 12.4, Plt Count 242, MPV 9.9, Immature Gran % (Auto) 0.500, Neut % (Auto) 67.9, Lymph % (Auto) 18.9 L, [place] % (Auto) 7.1, Eos % (Auto) 4.7, Baso % (Auto) 0.9, Absolute Neuts (auto) 7.0, Absolute Lymphs (auto) 1.94, Nucleated RBC % 0, Sodium 144, Potassium 4.7, Chloride 108, Carbon Dioxide 22.1, Anion Gap 14, BUN 16, Creatinine 1.57 H, Estim Creat Clear Calc 50.28, Est GFR (MDRD) Non-Af 38 L, BUN/Creatinine Ratio 9.9 L, Glucose 148 H, Calcium 9.2, Total Bilirubin 0.32, Direct Bilirubin < 0.08, AST 37 H, ALT 29, Alkaline Phosphatase 95, Total Protein 7.0, Albumin 4.1, Globulin 2.9, Lipase 37 02/25/25 01:57: Urine Color Yellow, Urine Clarity Clear, Urine pH 6.5, Ur Specific [place] 1.010, Urine Protein 15 H, Urine Glucose (UA) Normal, Urine Ketones Negative, Urine Occult Blood 10 H, Urine Nitrite Negative, Urine Bilirubin Negative, Urine Urobilinogen Normal, Ur Leukocyte Esterase 500 H, Urine RBC 0 SEEN, Urine WBC 0-5 SEEN, Ur Squamous Epith Cells 0 SEEN, Urine Bacteria 0 SEEN, Urine Mucus 0 SEEN Imaging Radiology Impression Chest X-Ray 02/25/25 00:40 IMPRESSION: As above. Reading Location: [id number] Assessment & Plan Assessment/Plan (1) Esophageal obstruction due to food impaction: PLAN: 59-year-old female with: * Esophageal foreign body ingestion with high suspicion for complication (impaction/perforation).?The patient's persistent, severe pain (throat/substernal chest), intractable vomiting, and history of forceful emesis following the initial sensation are highly concerning for esophageal injury or persistent obstruction, despite her belief that she cleared the initial food bolus. * History of CVA and vascular risk factors, currently on aspirin, which is relevant for periprocedural bleeding risk. * Need for urgent therapeutic EGD?to evaluate for persistent foreign body, location and nature of impaction, rule out perforation, and provide therapeutic removal. Plan * Emergent therapeutic EGD: * Informed consent obtained. * Proceed to endoscopy suite immediately. * Equipment needed: Various foreign body retrieval tools (forceps, nets, snares, overtube if necessary). * Procedure goals: Identify foreign body (if still present), safely remove it, assess the esophagus for mucosal injury, erosion, or perforation. * NPO status: Patient to remain strictly NPO (nothing by mouth). * IV fluids: Continue maintenance IV fluid hydration.
--- NOTE | 2025-02-25 08:30 | EGD_PTH ---
PATIENT: ISI GENAO LOC: EN U#:[id number] AGE/SX: 59/F ROOM: RE02/25/[address]: Dr. Buck Jack DO : 1965 BED: DIS: 02/25/2025 SPEC #: [id number] RECD: 02/25/25 10:39 STATUS: CLARA REKash #: [id number] YIN: 02/25/25 08:[address]: Buck Jack DEPT: SURGICAL PATHOLOGY RECD BY: Farooq Cortez ENTERED: 02/25/25 13:52 SP TYPE: EGD BIOPSY OTHR DR: Jessica Rashid, [facility], DO Tissues: A - Esophagus, NOS Procedures: Surgery Specimen Level IV HEADER OPERATION: EGD, removal food bolus and biopsy PRE-OP DIAGNOSIS: Esophageal obstruction due to food impaction TISSUE SUBMITTED: A- Random esophagus biopsy MICROSCOPIC DIAGNOSIS A. Esophagus, random, biopsy: * Benign squamous epithelium with acute and chronic inflammation with reactive changes (See note) * Cardiac type mucosa with mild chronic inflammation, negative for goblet cells Note: A PAS stain is in progress and will be reported as an addendum MICROSCOPIC DESCRIPTION Slides are reviewed. GROSS DESCRIPTION A. Received in fixative is one container labeled with the patient's name and designated Random esophagus biopsy. The specimen consists of two irregular fragments of bueno tissue that measure 1 x 0.5 x 0.2 cm. The specimen is totally submitted in one cassette. 02/25/2025 CPT:33214
--- NOTE | 2025-02-25 08:52 | OP.EGD_ITS ---
Patient Name: Kmy Ashraf Procedure Date: 02/25/2025 8:27 AM Date of : 1965 Age: 59 Procedure: Upper GI endoscopy Indications: Dysphagia Providers: Buck Jack DO Referring MD: Jessica Rashid Do Medicines: Monitored Anesthesia Care Patient Profile: This is a 59 year old female. Refer to note in patient chart for documentation of history and physical. Patient has symptoms of acute dysphagia and dysphagia with both liquids and solids. Complications: No immediate complications. Procedure: Pre-Anesthesia Assessment: - Prior to the procedure, a History and Physical was performed, and patient medications and allergies were reviewed. The patient is competent. The risks and benefits of the procedure and the sedation options and risks were discussed with the patient. All questions were answered and informed consent was obtained. Patient identification and proposed procedure were verified by the physician in the pre-procedure area. Mental Status Examination: alert and oriented. Airway Examination: normal oropharyngeal airway and neck mobility. Respiratory Examination: clear to auscultation. CV Examination: normal. Prophylactic Antibiotics: The patient does not require prophylactic antibiotics. Prior Anticoagulants: The patient has taken no anticoagulant or antiplatelet agents. ASA Grade Assessment: II - A patient with mild systemic disease. After reviewing the risks and benefits, the patient was deemed in satisfactory condition to undergo the procedure. The anesthesia plan was to use monitored anesthesia care (MAC). Immediately prior to administration of medications, the patient was re-assessed for adequacy to receive sedatives. The heart rate, respiratory rate, oxygen saturations, blood pressure, adequacy of pulmonary ventilation, and response to care were monitored throughout the procedure. The physical status of the patient was re-assessed after the procedure. After obtaining informed consent, the endoscope was passed under direct vision. Throughout the procedure, the patient's blood pressure, pulse, and oxygen saturations were monitored continuously. The gastroscope was introduced through the mouth, and advanced to the second part of duodenum. The upper GI endoscopy was accomplished without difficulty. The patient tolerated the procedure well. Scope In: 8:39:00 AM Scope Out: 8:45:20 AM Total Procedure Duration Time 0 hours 6 minutes 20 seconds Findings: Food was found in the upper third of the esophagus. Removal was accomplished with a [place] net. Verification of patient identification for the specimen was done. Estimated blood loss was minimal. Mucosal changes including ringed esophagus and circumferential folds were found in the entire esophagus. Esophageal findings were graded using the Eosinophilic Esophagitis Endoscopic Reference Score (EoE-EREFS) as: Stricture present. Biopsies were obtained from the proximal and distal esophagus with cold forceps for histology of suspected eosinophilic esophagitis. Verification of patient identification for the specimen was done. Estimated blood loss was minimal. No gross lesions were noted in the entire examined stomach. No gross lesions were noted in the entire examined duodenum. Impression: - Food in the upper third of the esophagus. Removal was successful. - Esophageal mucosal changes consistent with eosinophilic esophagitis. - No gross lesions in the entire stomach. - No gross lesions in the entire examined duodenum. - Biopsies were taken with a cold forceps for evaluation of eosinophilic esophagitis. Recommendation: - Discharge patient to home. - Resume previous diet. - Continue present medications. - Await pathology results. - Repeat upper endoscopy in 3 months to assess disease activity. - Protonix 40 mg p.o. twice daily x 6 months Procedure Code(s): --- Professional --- 54967, Esophagogastroduodenoscopy, flexible, transoral; with removal of foreign body(s) 06597, Esophagogastroduodenoscopy, flexible, transoral; with biopsy, single or multiple CPT copyright 2021 [employer]. All rights reserved. The codes documented in this report are preliminary and upon impregnator review may be revised to meet current compliance requirements. Buck Jack DO 02/25/2025 8:52:05 AM This report has been signed electronically. Number of Addenda: 0 Note Initiated On: 02/25/2025 8:27 AM
--- NOTE | 2025-02-25 08:52 | OP.PROVAT_ITS ---
02/25/2025 Jessica Rashid Do Re : Upper GI endoscopy procedure for Kym Ashraf Dear Gay This procedure was performed on Tuesday, February 25, 2025. My impressions and recommendations are as follows: Impressions : - Food in the upper third of the esophagus. Removal was successful. - Esophageal mucosal changes consistent with eosinophilic esophagitis. - No gross lesions in the entire stomach. - No gross lesions in the entire examined duodenum. - Biopsies were taken with a cold forceps for evaluation of eosinophilic esophagitis. Recommendations : - Discharge patient to home. - Resume previous diet. - Continue present medications. - Await pathology results. - Repeat upper endoscopy in 3 months to assess disease activity. - Protonix 40 mg p.o. twice daily x 6 months My findings are described in the full procedure note, which is enclosed. If I can be of further assistance, please feel free to contact me at . Sincerely, Buck Jack, 02/25/2025 8:52:05 AM This report has been signed electronically.
--- NOTE | 2025-02-25 08:59 | PCM.POST.ANE ---
Anesthesia: Postop Eval I Current Vital Signs Temperature: 98 F Pulse Rate: 84 Blood Pressure: 134/111 Respiratory Rate: 16 Pulse Ox: 94 Oxygen Delivery Method: Room Air Assessment Airway patent: Yes Spontaneous unlabored respirations: Yes Mental status: Awake and Calm nausea: No Vomiting: No Anesthesia Complication: No Fluid Hydration Crystalloid volume administer (ml): 600 Total IV fluid infused: 600 Progress Note Anesthesia document: Postop Eval 1 completed: Yes
--- NOTE | 2025-02-25 16:39 | PCM.POSTANE2 ---
Anesthesia Postop Eval I Sum Postop Eval Completion status Anesthesia document: Postop Eval 1 completed: Yes Anesthesia Postop Eval I Summary Anesthesia Postop Eval I Summary: Anesthesia Postop Eval I: Assessment Summary Airway patent Yes 02/25/25 08:59 [email or web address] Spontaneous unlabored Yes 02/25/25 08:59 [email or web address] respirations Mental status Awake,Calm 02/25/25 08:59 [email or web address] nausea No 02/25/25 08:59 [email or web address] Vomiting No 02/25/25 08:59 [email or web address] Anesthesia Postop Eval I: Fluid Summary Crystalloid volume administer 600 02/25/25 08:59 [email or web address] (ml) Colloids volume administered ( ml) Blood Product volume administered (ml) Total IV fluid infused 600 02/25/25 08:59 [email or web address] Anesthesia Postop Eval I: Summary Notes Anesthesia Complication No 02/25/25 08:59 [email or web address] Anesthesia Complication Comment: Post-operative progress note Anesthesia: Postop Eval II Evaluation Mental status: Awake Pain Level: 0 nausea: No Vomiting: No Complications Anesthesia Complication: No
== END 2025-02-25 09:35 | disposition home or self-care (01) ==
LOC: ED 02-25 06:29 → EN 02-25 07:01 → ACINP 02-25 07:02
PROVIDERS: Emergency Provider Emergency Medicine; PCP Family Medicine; Referring Provider Family Medicine; Visit Provider Internal Medicine Gastroenterology
PROC: 0DJ08ZZ Inspection of Upper Intestinal Tract, Via Natural or Artificial Opening Endoscopic (ICD-10-PCS; CPT 43235; principal; 2025-02-25 08:25)
DX: K22.2 Esophageal obstruction (principal); Z68.41 Body mass index [BMI] 40.0-44.9, adult; E11.9 Type 2 diabetes mellitus without complications; T18.128A Food in esophagus causing other injury, initial encounter; E78.5 Hyperlipidemia, unspecified; Z79.899 Other long term (current) drug therapy; I10 Essential (primary) hypertension; Z79.82 Long term (current) use of aspirin; E66.9 Obesity, unspecified; Z86.73 Personal history of transient ischemic attack (TIA), and cerebral infarction without residual deficits; W44.F3XA Food entering into or through a natural orifice, initial encounter
CPT/HCPCS: 43247; 43239; 71045; 80048; 80076; 81001; 83690; 85025; 88305; 93005; 99284; A4216; J1610; J2405

== ENCOUNTER 2025-02-27 10:31 | Outpatient (RCR) | payer OTHER, SELFPAY ==
[2025-02-27 12:50] LABS: AST(SGOT) 24 U/L (<=31); Alanine Aminotransfer ALT/SGPT 24 U/L (<=34); Albumin, Serum 4.0 g/dL (3.5-5.0); Alkaline Phosphatase 81 U/L (35-104); Bilirubin, Direct 0.13 mg/dL (0.00-0.30); Globulin 2.6 g/dL (2.2-4.2)
== END 2025-03-02 18:00 | disposition home or self-care (01) ==
LOC: LAB 10:31
PROVIDERS: PCP Family Medicine; Referring Provider Pediatrics Pediatric Nephrology; Visit Provider Pediatrics Pediatric Nephrology
DX: Q61.3 Polycystic kidney, unspecified (principal)
CPT/HCPCS: 36415; 80076

== ENCOUNTER 2025-03-25 13:17 | Outpatient (RCR) | payer OTHER, SELFPAY ==
[2025-03-25 14:30] LABS: AST(SGOT) 21 U/L (<=31); Alanine Aminotransfer ALT/SGPT 23 U/L (<=34); Albumin, Serum 4.2 g/dL (3.5-5.0); Alkaline Phosphatase 82 U/L (35-104); Bilirubin, Direct 0.14 mg/dL (0.00-0.30); Globulin 2.4 g/dL (2.2-4.2)
== END 2025-03-25 18:00 | disposition home or self-care (01) ==
LOC: LAB 13:17
PROVIDERS: PCP Family Medicine; Referring Provider Pediatrics Pediatric Nephrology; Visit Provider Pediatrics Pediatric Nephrology
DX: Q61.3 Polycystic kidney, unspecified (principal)
CPT/HCPCS: 36415; 80076